=== PATIENT | male | born 1965 | race Caucasian/White ===

== ENCOUNTER → 2018-01-12 16:42 | Outpatient (CLI) | payer BC, SELFPAY ==
[2018-01-12 17:39] LABS: Absolute Lymphocyte Count 2.18 X10^3/ul (0.83-4.51); Absolute Neutrophil Count 4.1 X10^3/uL (2.0-7.7); Basophil# 0.02 X10^3/uL; Basophil% 0.3 % (0-1); Eosinophil# 0.08 X10^3/uL; Eosinophils% 1.2 % (0-5); Hematocrit 42.7 % (40-54); Hemoglobin 14.1 g/dl (13.0-16.5); Lymphocyte # 2.18 X10^3/ul (4.0); Lymphocyte % 31.7 % (19-41); Mean Corpuscular Hgb 28.8 pg (27.0-32.0); Mean Corpuscular Volume 87.1 fL (80-94); Mean Platelet Vol. 11.5 fl (6.2-12.0); Monocyte% 7.3 % (0-10); Neutrophil # 4.08 X10^3/uL (2.7-7.7); Neutrophil % 59.2 % (47-70); Platelet Count 109 K/mm3 (150-450); RBC Distribution Width CV 13.6 % (11.6-14.6); RBC Distribution Width SD 43.3 fl (35.1-43.9); White Blood Count 6.9 K/mm3 (4.4-11.0)
[2018-01-12 17:45] LABS: POSITIVE COUNT NO; POSITIVE DIFFERENTIAL NO; POSITIVE MORPHOLOGY NO
[2018-01-12 18:01] LABS: BUN 25 mg/dL (7-18); Creatinine, Serum 0.83 mg/dL (0.70-1.30); Glucose 162 mg/dL (74-106)
[2018-01-12 18:02] LABS: AST(SGOT) 31 U/L (15-37); Alanine Aminotransfer ALT/SGPT 43 U/L (16-61); Albumin, Serum 3.7 g/dL (3.2-5.0); Alkaline Phosphatase 110 U/L (45-117); Anion Gap 9 (5-15); BUN/Creat Ratio 30.3 RATIO (10-20); Calcium,Total 9.1 mg/dL (8.5-10.1); Chloride 104 mmol/L (98-107); EST Glomerular Filtration Rate 104 mL/min (>60); Est Glom Filt Rate - Afr Amer 126 mL/min (>60); Globulin 3.8 g/dL (2.2-4.2); Protein, Total 7.5 g/dL (6.4-8.2); Sodium Level 138 mmol/L (136-145); Thyroid Stim Hormone (TSH) 0.71 uIU/mL (0.358-3.74)
== END ==
PROVIDERS: Family Provider Family Medicine Geriatric Medicine; PCP Family Medicine Geriatric Medicine; Visit Provider Family Medicine Geriatric Medicine
DX: I10 Essential (primary) hypertension (principal); E11.9 Type 2 diabetes mellitus without complications; E23.6 Other disorders of pituitary gland
CPT/HCPCS: 36415; 80053; 84403; 84443; 85025

== ENCOUNTER → 2018-03-03 10:10 | Outpatient (CLI) | payer BC, SELFPAY ==
--- NOTE | 2018-03-03 12:28 | RAD_ITS ---
STUDY: X-RAY CHEST REASON FOR EXAM: Male, 52 years old. Short of breath x2 days. History of previous bronchitis. TECHNIQUE: Frontal and lateral views of the chest. COMPARISON: June 04, 2015. FINDINGS: There is no large region of alveolar opacification involving near completely the left lower lobe. There is obscuration of the left hemidiaphragm and blunting of left lateral left posterior costophrenic angles. There is no pneumothorax. Normal size heart. Normal mediastinum and lucy. Normal visualized pulmonary arteries. Normal visualized aortic arch and descending thoracic aorta. Normal visualized thoracic spine. Normal visualized ribs, clavicles, and shoulders. There is no demonstrated abnormality of the visualized soft tissue structures of the upper abdomen. RAD/Chest PA and Lateral IMPRESSION: Left lower lobe pneumonia with small to moderate-sized parapneumonic effusion. Electronically Signed: Ryan Larsen MD at 13:24 EDT , Service support ,
[2018-03-03 12:59] LABS: Anion Gap 9 (5-15); BUN 35 mg/dL (7-18); BUN/Creat Ratio 34.7 RATIO (10-20); Calcium,Total 9.3 mg/dL (8.5-10.1); Chloride 95 mmol/L (98-107); Creatinine, Serum 1.01 mg/dL (0.70-1.30); EST Glomerular Filtration Rate 83 mL/min (>60); Est Glom Filt Rate - Afr Amer 100 mL/min (>60); Glucose 387 mg/dL (74-106); Potassium 4.5 mmol/L (3.5-5.1); Sodium Level 132 mmol/L (136-145)
[2018-03-03 13:28] LABS: Absolute Lymphocyte Count 0.81 X10^3/ul (0.83-4.51); Absolute Neutrophil Count 7.5 X10^3/uL (2.0-7.7); Basophil# 0.01 X10^3/uL; Basophil% 0.1 % (0-1); Eosinophil# 0.05 X10^3/uL; Eosinophils% 0.6 % (0-5); Hematocrit 41.4 % (40-54); Hemoglobin 13.5 g/dl (13.0-16.5); Lymphocyte # 0.81 X10^3/ul (4.0); Lymphocyte % 9.4 % (19-41); Mean Corp Hgb Conc 32.6 g/gl (32-36); Mean Corpuscular Hgb 28.2 pg (27.0-32.0); Mean Corpuscular Volume 86.6 fL (80-94); Monocyte# 0.31 X10^3/uL; Monocyte% 3.6 % (0-10); Neutrophil # 7.46 X10^3/uL (2.7-7.7); Neutrophil % 86.2 % (47-70); Platelet Count 91 K/mm3 (150-450); RBC Distribution Width CV 13.2 % (11.6-14.6); Red Blood Count 4.78 M/mm3 (4.6-6.2); White Blood Count 8.7 K/mm3 (4.4-11.0)
[2018-03-03 13:29] LABS: Differential Indicated SCAN CRITERIA MET; POSITIVE COUNT NO; POSITIVE DIFFERENTIAL NO; POSITIVE MORPHOLOGY YES
[2018-03-03 14:57] LABS: Polychromasia 1+
== END ==
PROVIDERS: Family Provider Family Medicine Geriatric Medicine; PCP Family Medicine Geriatric Medicine; Visit Provider Family Medicine Geriatric Medicine
DX: R06.02 Shortness of breath (principal); R50.9 Fever, unspecified; E86.0 Dehydration
CPT/HCPCS: 36415; 71046; 80048; 85025; 87633

== ENCOUNTER → 2018-03-10 12:39 | Outpatient (CLI) | payer BC, SELFPAY ==
--- NOTE | 2018-03-10 12:54 | RAD_ITS ---
STUDY: X-RAY CHEST REASON FOR EXAM: Male, 52 years old. Chest pain. Diagnosed with pneumonia last week. Pain. TECHNIQUE: PA and lateral views of the chest. COMPARISON: March 03, 2018. FINDINGS: Lungs well-expanded. There is linear atelectasis in the left lung with blunting of the costophrenic angle and small pleural effusion. There is may represent residual pneumonia. Normal size heart. Normal mediastinum and lucy. Normal visualized pulmonary arteries. Normal visualized aortic arch and descending thoracic aorta. Normal visualized thoracic spine. Normal visualized ribs, clavicles, and shoulders. There is no demonstrated abnormality of the visualized soft tissue structures of the upper abdomen. RAD/Chest PA and Lateral IMPRESSION: Small pleural effusion and linear atelectasis at the left lung base. Question residual pneumonia. Electronically Signed: Reagan Arriola DO at 14:20 EDT Tel [phone], Service support ,
== END ==
PROVIDERS: Family Provider Family Medicine Geriatric Medicine; PCP Family Medicine Geriatric Medicine; Visit Provider Family Medicine Geriatric Medicine
DX: R07.9 Chest pain, unspecified (principal)
CPT/HCPCS: 71046

== ENCOUNTER → 2018-03-21 10:30 | Outpatient (CLI) | payer BC, SELFPAY ==
--- NOTE | 2018-03-21 10:33 | ECHOD_ITS ---
Reason For Study: SOB Procedure This was a 2D Doppler, Color Flow transthoracic echocardiogram. The exam was of fair technical quality due to body habitus. The study was technically difficult. Exam performed in department. Left Ventricle Normal LV size. Left ventricular systolic function is normal. The estimated ejection fraction is 70 %. No evidence for diastolic dysfunction. No regional wall motion abnormalities noted. Right Ventricle Normal RV size. Normal systolic function. Atria Normal left atrium. Normal right atrium. No doppler evidence for ASD. Mitral Valve There is no mitral annular calcification. Normal mitral valve. Trivial mitral valve insufficiency. Tricuspid Valve Normal tricuspid valve. Trivial tricuspid valve insufficiency. Unable to estimate RV systolic pressure/pulmonary artery pressure due to technically difficult study. Aortic Valve The aortic valve is not well visualized. Pulmonic Valve The pulmonic valve is not well visualized. Great Vessels Normal sized aortic root. Pericardium/Pleural No pericardial effusion. MMode/2D Measurements & Calculations LVIDd: 4.3 cm IVSd: 1.1 cm Ao root diam: 3.0 cm LVIDs: 3.0 cm LVPWd: 0.81 cm RVDd: 3.0 cm FS: 30.4 % LAV(MOD-bp): 37.3 ml EDV(MOD-sp4): 133.1 ml SV(MOD-sp4): 73.8 ml LAV(MOD-bp) Indexed: 16.6 ml/m2 ESV(MOD-sp4): 59.3 ml LAV(MOD-sp2): 35.1 ml EF(MOD-sp4): 55.5 % LAV(MOD-sp4): 35.4 ml LA A4 area: 15.8 cm2 RA A4 area: 10.7 cm2 Time Measurements MV dec time: 0.21 sec Doppler Measurements & Calculations MV E max lowell: 117.6 cm/sec Lat Peak E' Lowell: 17.1 cm/sec Med Peak E' Lowell: 11.6 cm/sec MV A max lowell: 100.9 cm/sec E/E' lat: 6.9 E/E' med: 10.1 MV E/A: 1.2 Ao V2 max: 219.1 cm/sec LV V1 max: 120.2 cm/sec PA V2 max: 206.4 cm/sec Ao max P.2 mmHg LV V1 max P.8 mmHg Ao V2 mean: 165.6 cm/sec LV V1 mean P.4 mmHg Ao mean P.2 mmHg LV V1 mean: 85.2 cm/sec Ao V2 VTI: 41.2 cm LV V1 VTI: 24.8 cm Interpretation Summary The study was technically difficult. Left ventricular systolic function is normal. The estimated ejection fraction is 70 %. Trivial mitral valve insufficiency. Trivial tricuspid valve insufficiency. Unable to estimate RV systolic pressure/pulmonary artery pressure due to technically difficult study. No evidence for diastolic dysfunction. Ordering Physician: Ravindra Durham Referring Physician: Ravindra Durham Chi Performed By: Barbara Pinto RDCS
== END ==
PROVIDERS: Family Provider Family Medicine Geriatric Medicine; PCP Family Medicine Geriatric Medicine; Visit Provider Family Medicine Geriatric Medicine
DX: R06.02 Shortness of breath (principal)
CPT/HCPCS: 93306

== ENCOUNTER → 2018-03-23 06:04 | Outpatient (CLI) | payer BC, SELFPAY ==
--- NOTE | 2018-03-23 09:02 | STRESSREP ---
Stress Test Report Date: 03/23/2018 Procedure: Pharmacologic stress nuclear imaging study Indications: Chest pain/shoulder pain; abnormal ECG Consent: Per the patient Procedure: The patient underwent pharmacologic (Regadenoson) evaluation with a peak heart rate of 102 beats per minute (60 predicted maximal heart rate) and a peak blood pressure of 119/82 mmHg. The baseline ECG demonstrated normal sinus rhythm. The peak pharmacologic ECG demonstrated no obvious ECG changes. There were no cardiac dysrhythmias pretest, during pharmacologic infusion, or recovery. Patient noted chronic chest/shoulder discomfort pretest, during infusion, and recovery. The examination was discontinued secondary to completion of protocol. Impression: 1. Pharmacologic (Regadenoson) evaluation 2. Peak pharmacologic ECG with no obvious ECG changes. 3. There were no cardiac dysrhythmias pretest, during pharmacologic infusion, or recovery 4. Nuclear images pending Myocardial perfusion imaging study: Technique: The patient was injected with 14.6 millicuries of technetium 99m Cardiolite and subsequently rest SPECT Cardiolite nuclear imaging was obtained in the horizontal long, vertical long, and short axis views. The patient underwent pharmacologic (Regadenoson) evaluation with a peak heart rate of 102 beats per minute (60 % percent predicted maximal heart rate) and a peak blood pressure of 119/82 mmHg. The patient was injected with 44.7 millicuries of technetium 99m Cardiolite and subsequently stress SPECT Cardiolite nuclear imaging was obtained in the horizontal long, vertical long, and short axis views. A gated Cardiolite study at peak stress was obtained. Interpretation: Rest and stress SPECT Cardiolite nuclear imaging status post realignment, normalization, and attenuation correction demonstrate a small area of subtle diminished myocardial perfusion/tracer uptake in the lateral apical segments without significant change between rest and stress. There is end systolic thickening and brightening. The gated Cardiolite study demonstrates myocardial thickening and inward wall motion. The reported LVEF is 65 %. Impression: 1. Rest and stress SPECT Cardiolite nuclear imaging demonstrate a small area of subtle diminished myocardial perfusion/tracer uptake in the lateral apical segments without significant change between rest and stress appearing compatible with the effects of soft tissue attenuation/artifact and/or physiologic apical thinning with no myocardial perfusion changes consider diagnostic for associated stress-induced myocardial ischemia or previous myocardial injury/infarction. 2. The gated Cardiolite study reports an LVEF of 65%. This note was generated with Dragon dictation software. It may contain incorrect words, spelling, and punctuation that were not noted in checking the note before signing.
[2018-03-24 11:26] LABS: Bedside Glucose 333 mg/dL (70-110)
== END ==
PROVIDERS: Family Provider Family Medicine Geriatric Medicine; PCP Family Medicine Geriatric Medicine; Visit Provider Family Medicine Geriatric Medicine
DX: R94.31 Abnormal electrocardiogram [ECG] [EKG] (principal)
CPT/HCPCS: 78452; 82962; 93017; A9500; A4216; J2785

== ENCOUNTER 2018-03-24 07:39 | Emergency (ER) | payer BC, SELFPAY ==
[2018-03-24] VITALS (13 sets, daily range): BP systolic 100–150; BP diastolic 54–76; PULSE 91–154; RESP 16–27; TEMP 36.3–37.2; O2SAT 96–100; BMI 38.0
--- NOTE | 2018-03-24 08:20 | EKG12_ITS ---
Test Reason : REPEAT Blood Pressure : / mmHG Vent. Rate : 131 BPM Atrial Rate : 138 BPM P-R Int : 000 ms QRS Dur : 094 ms QT Int : 308 ms P-R-T Axes : 000 023 220 degrees QTc Int : 454 ms Atrial fibrillation Low voltage QRS ST & T wave abnormality, consider inferolateral ischemia Abnormal ECG Confirmed by FIORDALIZA GARCIA, XAVIER ([id number]), supervising editor trailer MACIE LAURA ([id number]) on 03/28/2018 2:18:10 PM Referred By: Ravindra Durham Confirmed By:XAVIER MANCERA MD
--- NOTE | 2018-03-24 08:21 | RAD_ITS ---
STUDY: X-RAY CHEST REASON FOR EXAM: Male, 52 years old. Chest pain. TECHNIQUE: Single AP portable view of the chest. COMPARISON: Comparison is made with prior study dated March 10, 2018. FINDINGS: EKG electrodes are seen. Small to moderate left pleural effusion with underlying infiltration and/or atelectasis. This has progressed as compared to prior study. The right lung is clear. Normal size heart. Normal mediastinum and lucy. Normal visualized pulmonary arteries. Normal visualized aortic arch and descending thoracic aorta. Normal visualized thoracic spine. Normal visualized ribs, clavicles, and shoulders. There is no demonstrated abnormality of the visualized soft tissue structures of the upper abdomen. RAD/Chest 1 View (Portable) IMPRESSION: Increased left pleural effusion with underlying infiltration and/or atelectasis as compared to prior study. The right lung is clear. Electronically Signed: Travis Borges MD at 9:07 EDT Tel [phone], Service support ,
--- NOTE | 2018-03-24 08:28 | ED.VISSUMM ---
- ER Visit Summary Date of Service: 03/24/18 Chief Complaint: Chest pain History of Present Illness: The patient is a [address] Durham. He reports that he has had lower left chest pain for approximately the past week. States that is intermittent and lasts minutes at a time. It is brought on by exertion and relieved by rest. He describes the pain as a panic attack. It is 5 out of 10 at worst and he is 1 out of 10 currently. He reports that it is associated with severe shortness of breath. He does have nausea and diaphoresis with this at times. States that he is also lightheaded during these episodes. He also states that he has left shoulder pain that has been constant for the past week. Patient reports that this morning he was laying down and then stood up and walked up 2 flights of stairs. He sat down on the toilet and the next thing he knew his was cleaning him up. He denies any injuries from the fall. Does report that prior to this he was short of breath. He denies any chest pain or palpitations. Patient reports that he had pneumonia 2 weeks ago and was on an unknown antibiotic which he took twice daily for 1 week. He states his cough is greatly improved and is now nonproductive. He denies any fever or chills. Patient had an echocardiogram 3 days ago and a stress test yesterday. He has a history of high blood pressure, high cholesterol, type 2 diabetes as cardiac risk factors. He also has a history of obstructive sleep apnea. No family history of coronary artery disease. No family history of DVTs. No recent travel or personal history of DVT. No ankle swelling or calf pain. Physical Examination: Vitals: 9.0, 150/67, 99, 20, 97% on room air which is not hypoxic. General: Well-nourished and well-developed. Head: Normocephalic atraumatic. Neck: Supple, no lymphadenopathy. No JVD. Nontender. Cardiovascular: Regular rate and rhythm. No murmurs. Respiratory: No respiratory distress. Clear to auscultation bilaterally. Abdominal: Soft, nontender, nondistended, normal bowel sounds. No guarding, rebound, or peritoneal signs. Back: Nontender. Extremities: Nontender, no edema. Skin: Normal color, no rash. Neurologic: Alert and oriented ?3. Cranial nerves II through XII are intact. Normal strength and sensation. Psych: Normal affect. Test Results: EKG is sinus tach at [address] segments laterally. There is no old EKG for comparison. CBC is remarkable for hemoglobin of 4.3 and hematocrit of 14.1. His hemoglobin was 13.5 on March 03. Chem-7 is more for creatinine is 0.62, glucose 340, calcium 7.7. INR is 1.1. PTT is 25.8. Lactic acid is 1.0. Initial troponin is less than 0.015. D-dimer is 1.83. Chest x-ray shows a left pleural effusion. CTA of the chest shows small to moderate size left pleural effusion with areas of loculation. Left lower lobe infiltrate and/or atelectasis. Several nonocclusive intraluminal filling defects are seen in the branches a left lower lobe pulmonary artery. Echocardiogram shows normal systolic function. No evidence of diastolic dysfunction. Ejection fraction is 70%. Trivial tricuspid and mitral valve insufficiency. Stress test from yesterday 60% of the max predicted heart rate was achieved with Regadenoson. Ejection fraction was 65%. Small area of subtle decreased uptake in the lateral apical segments that is unchanged between rest and stress. Emergency Department Course and Treatment: Patient was given aspirin. He was given a liter bolus of normal saline. Patient was typed and crossed and given 2 units of packed red blood cells. During his stay in the emergency department he went into atrial fibrillation with RVR. His rate is in the 130s-150s and his systolic blood pressure is in the 1 teens. He was given amiodarone IV. He was given Zosyn IV. He was given Protonix IV. Treatment Plan: The patient was discussed with Dr. Bahena. Given the empyema and anemia is felt that he would be better served at a tertiary care center where he could see a cardiothoracic surgeon and gastroenterology. Patient decided to go to [facility]. He was discussed with Dr. Jones. At this time he will not be anticoagulated due to the anemia and the peripheral nature of these PEs. He will have lower extremity Dopplers and if these are positive he will have an IVC filter placed. Disposition: Transferred in critical condition. Impression: 1. Anemia. 2. Syncope. 3. Left pleural effusion/empyema. 4. Atrial fibrillation with RVR. 5. PE. 6. Critical care time 30 minutes. This note was generated with [employer] dictation software. It may contain incorrect words, spelling, and punctuation that were not noted in review of the chart prior to signing ED Disposition - Plan for ED Patient: Chief Complaint: Chest Pain Referrals: Ravindra Durham Chi, MD [Primary Care Provider] -
[2018-03-24] MEDS: 0.9% Normal Saline 1,000 ML 1000 ML IV (08:31)
[2018-03-24] MEDS: Aspirin 81 MG TAB.CHEW 324 MG PO (08:33)
[2018-03-24 08:41] LABS: Hematocrit 14.1 % (40-54); Mean Corp Hgb Conc 30.5 g/gl (32-36); Mean Corpuscular Hgb 29.5 pg (27.0-32.0); Mean Corpuscular Volume 96.6 fL (80-94); Mean Platelet Vol. 8.9 fl (6.2-12.0); Platelet Count 191 K/mm3 (150-450); RBC Distribution Width CV 18.2 % (11.6-14.6); RBC Distribution Width SD 48.7 fl (35.1-43.9); Red Blood Count 1.46 M/mm3 (4.6-6.2); White Blood Count 7.9 K/mm3 (4.4-11.0)
[2018-03-24 08:42] LABS: Hemoglobin 4.3 g/dl (13.0-16.5)
[2018-03-24 08:43] LABS: Differential Indicated MANUAL DIFF; POSITIVE COUNT YES; POSITIVE DIFFERENTIAL NO; POSITIVE MORPHOLOGY YES
[2018-03-24 08:49] LABS: Anion Gap 8 (5-15); BUN 14 mg/dL (7-18); BUN/Creat Ratio 22.6 RATIO (10-20); Calcium,Total 7.7 mg/dL (8.5-10.1); Chloride 103 mmol/L (98-107); Creatinine, Serum 0.62 mg/dL (0.70-1.30); EST Glomerular Filtration Rate 146 mL/min (>60); Est Glom Filt Rate - Afr Amer 176 mL/min (>60); Estimated Creatinine Clearance 136.37 ml/min; Glucose 340 mg/dL (74-106); Potassium 3.9 mmol/L (3.5-5.1); Sodium Level 137 mmol/L (136-145)
[2018-03-24 08:52] LABS: D-Dimer Quantitative (DVT/PE) 1.83 FEU/ug/m (0.27-0.49)
--- NOTE | 2018-03-24 08:54 | CT_ITS ---
STUDY: CTA CHEST REASON FOR EXAM: Male, 52 years old. Shortness of breath. RADIATION DOSAGE (If Supplied By Facility): CTDIvol = ( 16.72 ) mGy, DLP = ( 701.43 ) mGycm TECHNIQUE: The examination was performed with the intravenous administration of 100 ml of Isovue 370 contrast material. Post-processing of the angiographic images was performed, with multiplanar reformation and 3D reconstruction. Individualized dose optimization techniques were used for this CT. COMPARISON: Comparison is made with prior chest radiograph done earlier today. FINDINGS: Several nonocclusive intraluminal filling defects are seen in branches of the left lower lobe pulmonary artery. Normal thoracic aorta and visualized great vessels. There is no demonstrated aortic dissection. Normal heart and pericardium. Normal mediastinum. Normal hilar regions. Normal visualized trachea and bronchi. The lungs are well expanded. Small to moderate left pleural effusion with findings suggestive of a partial loculation along its lateral aspect. Infiltration and/or atelectasis in the left lower lobe. The right lung is clear. Normal chest wall structures. Normal osseous structures. Normal visualized upper abdomen. CT/CTA Chest W/WO Contrast IMPRESSION: Small to moderate sized left pleural effusion with areas of loculation.. Left lower lobe infiltrate and/or atelectasis. Intraluminal filling defects in branches of the left lower lobe pulmonary artery. Electronically Signed: Travis Borges MD at 9:57 EDT Tel [phone], Service support ,
[2018-03-24 09:15] LABS: Lymphocyte 17 % (19-41); Metamyelocyte 3 % (0-1); Monocyte 5 % (0-10); Neutrophil-Segmented 75 % (47-70); Total Cells Counted 100 (MANUAL DIFF)
[2018-03-24 09:16] LABS: Absolute Neutrophil Count 5.9 X10^3/uL (2.0-7.7); Platelet Estimate ADEQUATE (ADEQ); Red Cell Morphology NORM C+C NORMAL (NORM C&C)
[2018-03-24 09:17] LABS: Absolute Lymphocyte Count 1.34 X10^3/ul (0.83-4.51)
[2018-03-24 09:18] LABS: International Normalized Ratio 1.1; Prothrombin Time (Protime)PT. 14.3 SECONDS (11.7-14.9)
[2018-03-24 09:19] LABS: Partial Thromboplast Time 25.8 Seconds (24.1-36.2)
--- NOTE | 2018-03-24 09:51 | EKG12_ITS ---
Test Reason : CP Blood Pressure : / mmHG Vent. Rate : 105 BPM Atrial Rate : 105 BPM P-R Int : 160 ms QRS Dur : 094 ms QT Int : 346 ms P-R-T Axes : 058 020 099 degrees QTc Int : 457 ms Sinus tachycardia Nonspecific T wave abnormality Abnormal ECG Confirmed by FIORDALIZA GARCIA, XAVIER ([id number]), photography editor MACIE LAURA ([id number]) on 03/28/2018 2:18:26 PM Referred By: Ravindra Durham Confirmed By:XAVIER MANCERA MD
--- NOTE | 2018-03-24 10:03 | ED.RN ---
MD AWARE OF VS FROM PRIOR TO BLOOD AND INITIATION.
--- NOTE | 2018-03-24 10:33 | ED.RN ---
MD AWARE OF PT VS AND CONCERNS. CONTINUE WITH BLOOD TRANSFUSION.
--- NOTE | 2018-03-24 11:32 | ED.RN ---
REPORT CALLED TO INEZ ROJAS AT [facility].
[2018-03-27 11:59] LABS: Pathologist Review Reviewed
== END 2018-03-24 11:37 | disposition short-term general hospital (02) ==
PROVIDERS: Emergency Provider Emergency Medicine; Family Provider Family Medicine Geriatric Medicine; PCP Family Medicine Geriatric Medicine
DX: I26.99 Other pulmonary embolism without acute cor pulmonale (principal); R55 Syncope and collapse; D64.9 Anemia, unspecified; I48.91 Unspecified atrial fibrillation; J43.9 Emphysema, unspecified; I10 Essential (primary) hypertension; E78.00 Pure hypercholesterolemia, unspecified; E11.9 Type 2 diabetes mellitus without complications; G47.33 Obstructive sleep apnea (adult) (pediatric); Z79.84 Long term (current) use of oral hypoglycemic drugs; Z79.899 Other long term (current) drug therapy
CPT/HCPCS: 36430; 71045; 71275; 80048; 83605; 84484; 85025; 85379; 85610; 85730; 86850; 86900; 86920; 86922; 87040; 93005; 96361; 96365; 96367; 99285; J7030; J7040; P9016; Q9967; A4216; J3490

== ENCOUNTER 2018-04-09 12:12 | Inpatient (IN) | payer BC, SELFPAY ==
[2018-04-09] VITALS (10 sets, daily range): BP systolic 97–156; BP diastolic 60–116; PULSE 78–113; RESP 16–24; TEMP 36.6–37; O2SAT 95–99; BMI 36.9; BMI 36.2; BMI 36.3
--- NOTE | 2018-04-09 12:20 | RAD_ITS ---
STUDY: X-RAY CHEST REASON FOR EXAM: Male, 52 years old. Shortness of breath. TECHNIQUE: Single AP portable upright view of the chest. COMPARISON: Audible AP upright chest x-ray and CTA chest/thorax March 24, 2018. FINDINGS: There has been nearly complete clearing of the left base airspace disease and pleural effusion, with very minor residual curvilinear subsegmental atelectasis and lateral pleural thickening. No new infiltrate. There is no demonstrated pleural abnormality. Normal size heart. Normal mediastinum and lucy. Normal visualized pulmonary arteries. Normal visualized aortic arch and descending thoracic aorta. There are stable multilevel degenerative changes of the visualized thoracic spine. Normal visualized ribs, clavicles, and shoulders. There is no demonstrated abnormality of the visualized soft tissue structures of the upper abdomen. RAD/Chest 1 View (Portable) IMPRESSION: Nearly complete interval clearing of left base airspace disease and pleural effusion, as noted. No acute cardiopulmonary disease. Electronically Signed: Magen Clement MD at 12:49 EDT , Service support ,
--- NOTE | 2018-04-09 12:20 | EKG12_ITS ---
Test Reason : DIZZINESS Blood Pressure : / mmHG Vent. Rate : 096 BPM Atrial Rate : 096 BPM P-R Int : 130 ms QRS Dur : 080 ms QT Int : 352 ms P-R-T Axes : 053 030 030 degrees QTc Int : 444 ms Normal sinus rhythm Nonspecific T wave abnormality Confirmed by FIORDALIZA GARCIA, XAVIER ([id number]), science editor MACIE LAURA ([id number]) on 04/19/2018 6:49:23 PM Referred By: FOSTER Confirmed By:XAVIER MANCERA MD
[2018-04-09 12:26] LABS: Bedside Glucose 401 mg/dL (70-110)
[2018-04-09 13:04] LABS: Basophil# 0.02 X10^3/uL; Basophil% 0.3 % (0-1); Eosinophil# 0.07 X10^3/uL; Eosinophils% 1.1 % (0-5)
[2018-04-09 13:09] LABS: Differential Indicated SCAN CRITERIA MET; Hematocrit 36.7 % (40-54); Hemoglobin 11.2 g/dl (13.0-16.5); Lymphocyte % 21.8 % (19-41); Mean Corp Hgb Conc 30.5 g/gl (32-36); Mean Corpuscular Volume 85.2 fL (80-94); Mean Platelet Vol. 10.4 fl (6.2-12.0); Neutrophil % 68.3 % (47-70); POSITIVE COUNT YES; POSITIVE DIFFERENTIAL NO; POSITIVE MORPHOLOGY NO; Platelet Count 165 K/mm3 (150-450); RBC Distribution Width CV 15.5 % (11.6-14.6); RBC Distribution Width SD 48.8 fl (35.1-43.9); Red Blood Count 4.31 M/mm3 (4.6-6.2); White Blood Count 6.6 K/mm3 (4.4-11.0)
[2018-04-09 13:10] LABS: Absolute Lymphocyte Count 1.44 X10^3/ul (0.83-4.51); Absolute Neutrophil Count 4.5 X10^3/uL (2.0-7.7); Lymphocyte # 1.44 X10^3/ul (4.0); Monocyte# 0.53 X10^3/uL; Neutrophil # 4.51 X10^3/uL (2.7-7.7)
[2018-04-09] MEDS: 0.9% Normal Saline 1,000 ML 999 ML IV (13:25)
[2018-04-09 13:34] LABS: Anion Gap 14 (5-15); BUN 15 mg/dL (7-18); Calcium,Total 9.3 mg/dL (8.5-10.1); Chloride 100 mmol/L (98-107); Creatinine, Serum 1.25 mg/dL (0.70-1.30); EST Glomerular Filtration Rate 65 mL/min (>60); Est Glom Filt Rate - Afr Amer 78 mL/min (>60); Estimated Creatinine Clearance 67.64 ml/min; Glucose 414 mg/dL (74-106); Potassium 4.6 mmol/L (3.5-5.1); Sodium Level 131 mmol/L (136-145)
[2018-04-09 13:35] LABS: Differential Comment SCANNED
[2018-04-09 13:54] LABS: Lactic Acid 4.6 mmol/L (0.4-2.0)
[2018-04-09 14:38] LABS: International Normalized Ratio 1.1; Partial Thromboplast Time 25.4 Seconds (24.1-36.2); Prothrombin Time (Protime)PT. 13.7 SECONDS (11.7-14.9)
--- NOTE | 2018-04-09 14:51 | ED.VISSUMM ---
- ER Visit Summary Date of Service: 04/09/18 Chief Complaint: Syncope History of Present Illness: The patient is a [address] Durham. He has a complicated recent medical history. He was admitted [facility] on March 24. He was discharged 5 days ago. While there he received 4 units of packed red blood cells. He had colonoscopy and endoscopy and was not informed of the source of blood loss. He had a chest tube in the left lung for an empyema. He reports that he is supposed follow-up to have stitches removed from this in a few days. He is still on an antibiotic which he takes twice daily. He does not know the name of this. His last dose was to be today. He also had a PE. Due to the severe anemia and no source of blood loss he had an IVC filter placed rather than being anticoagulated. Patient has gone out very little since then. He reports that he had his biggest venture out today. States that he went to [employer] As he was walking and he reports that he had tunnel vision. He got progressively more lightheaded, diaphoretic, and short of breath. He did not have chest pain during this. When he got to the front of the store he had what he reports was near syncope. However, bystanders report that he was in and out of consciousness. He reports that he did not fall. However, he was incontinent of stool. Patient denies any fever or chills. He reports that he has very little cough and it is productive of clear sputum. He reports that he was short of breath during this episode today, but has not been short of breath otherwise. He reports that for the past 3 or 4 days he has been having diarrhea 2-3 times per day. No abdominal pain. No nausea or vomiting. No other complaints. Physical Examination: Vitals: Stable. Afebrile. General: Well-nourished and well-developed. Head: Normocephalic atraumatic. Neck: Supple, no lymphadenopathy. No JVD. Nontender. Cardiovascular: Regular rate and rhythm. No murmurs. Respiratory: No respiratory distress. Clear to auscultation bilaterally. Abdominal: Soft, nontender, nondistended, normal bowel sounds. No guarding, rebound, or peritoneal signs. Back: Nontender. Extremities: Nontender, no edema. Skin: Normal color, no rash. Neurologic: Alert and oriented ?3. Cranial nerves II through XII are intact. Normal strength and sensation. Psych: Normal affect. Test Results: EKG is sinus at 96 with no acute changes. There is no significant change from last month. Initial troponin is negative. Lactic acid is 4.6. Chem-7 is marked for sodium 131, CO2 of 17, glucose of 414. CBC is marked for an H&H 11.2 and 36.7. Chest x-ray shows nearly complete clearing of the left lung base airspace disease and pleural effusion. No acute disease. Emergency Department Course and Treatment: Patient was given a liter bolus of normal saline. His systolic blood pressure increased from the high 90s to the 130s. He is resting comfortably without complaint. Abdominal Treatment Plan: Given the recent comp gated medical history and the syncope today I feel that the patient should be admitted to the hospital for evaluation and observation. He was discussed with Dr. Henderson. He will be admitted to the PCU. Disposition: Admitted in improved condition. Impression: 1. Syncope. 2. Lactic acidosis. 3. Hyperglycemia. 4. History of [id number] diabetes mellitus. This note was generated with [employer] dictation software. It may contain incorrect words, spelling, and punctuation that were not noted in review of the chart prior to signing ED Disposition - Plan for ED Patient: Chief Complaint: Syncope Referrals: Ravindra Durham Chi, MD [Primary Care Provider] -
--- NOTE | 2018-04-09 14:56 | ED.DCSUM_ITS ---
- ER Visit Summary Date of Service: 04/09/18 Chief Complaint: Syncope History of Present Illness: The patient is a [address] Durham. He has a complicated recent medical history. He was admitted [facility] on March 24. He was discharged 5 days ago. While there he received 4 units of packed red blood cells. He had colonoscopy and endoscopy and was not informed of the source of blood loss. He had a chest tube in the left lung for an empyema. He reports that he is supposed follow-up to have stitches removed from this in a few days. He is still on an antibiotic which he takes twice daily. He does not know the name of this. His last dose was to be today. He also had a PE. Due to the severe anemia and no source of blood loss he had an IVC filter placed rather than being anticoagulated. Patient has gone out very little since then. He reports that he had his biggest venture out today. States that he went to [employer] As he was walking and he reports that he had tunnel vision. He got progressively more lightheaded , diaphoretic, and short of breath. He did not have chest pain during this. When he got to the front of the store he had what he reports was near syncope. However, bystanders report that he was in and out of consciousness. He reports that he did not fall. However, he was incontinent of stool. Patient denies any fever or chills. He reports that he has very little cough and it is productive of clear sputum. He reports that he was short of breath during this episode today, but has not been short of breath otherwise. He reports that for the past 3 or 4 days he has been having diarrhea 2-3 times per day. No abdominal pain. No nausea or vomiting. No other complaints. Physical Examination: Vitals: Stable. Afebrile. General: Well-nourished and well-developed. Head: Normocephalic atraumatic. Neck: Supple, no lymphadenopathy. No JVD. Nontender. Cardiovascular: Regular rate and rhythm. No murmurs. Respiratory: No respiratory distress. Clear to auscultation bilaterally. Abdominal: Soft, nontender, nondistended, normal bowel sounds. No guarding, rebound, or peritoneal signs. Back: Nontender. Extremities: Nontender, no edema. Skin: Normal color, no rash. Neurologic: Alert and oriented ?3. Cranial nerves II through XII are intact. Normal strength and sensation. Psych: Normal affect. Test Results: EKG is sinus at 96 with no acute changes. There is no significant change from last month. Initial troponin is negative. Lactic acid is 4.6. Chem-7 is marked for sodium 131, CO2 of 17, glucose of 414. CBC is marked for an H&H 11.2 and 36.7. Chest x-ray shows nearly complete clearing of the left lung base airspace disease and pleural effusion. No acute disease. Emergency Department Course and Treatment: Patient was given a liter bolus of normal saline. His systolic blood pressure increased from the high 90s to the 130s. He is resting comfortably without complaint. Abdominal Treatment Plan: Given the recent comp gated medical history and the syncope today I feel that the patient should be admitted to the hospital for evaluation and observation. He was discussed with Dr. Henderson. He will be admitted to the PCU. Disposition: Admitted in improved condition. Impression: 1. Syncope. 2. Lactic acidosis. 3. Hyperglycemia. 4. History of hrp-culfqni-slnyghkxo diabetes mellitus. This note was generated with [employer] dictation software. It may contain incorrect words, spelling, and punctuation that were not noted in review of the chart prior to signing ED Disposition - Plan for ED Patient: Chief Complaint: Syncope Referrals: Ravindra Durham Chi, MD [Primary Care Provider] -
--- NOTE | 2018-04-09 15:08 | DT_ITS ---
This patient was seen during an EMR downtime April 10, 2018 - April 17, 2018. This patient may have a combination of paper and electronic documentation or all paper documentation. All documentation is viewable within the e-chart portion of [facility] for each patient visit.
--- NOTE | 2018-04-09 15:10 | PCM.HP.STD ---
<Pedro Singh - Last Filed: 04/09/18 15:10> Problem List (1) Syncope Status: Acute (2) Lactic acidosis Status: Acute (3) Diabetes Status: Chronic Qualifiers: Diabetes mellitus type: type 2 (4) Pulmonary embolism Status: Chronic (5) HTN (hypertension) Status: Chronic (6) Gastric ulcer Status: Acute (7) Testicular cancer Status: Chronic History of Present Illness Date of Admission: 04/09/18 Chief Complaint: syncope The patient is a 52 year old M with a medical hx of htn, dmt2, PE s/p IVC filter 2/2 GI bleeding suspected 2/2 gastric ulcers, hx Testicular CA s/p BL orchiectomy who presented to the ER with a syncopal episode today. He was discharged from [facility] 5 days ago where he was admitted for anemia 2/2 GI bleeding, PEs, and pleural effusions s/p chest tube placement 2/2 pna/empyema. While there he had upper and lower endoscopies with ulcers and polyps respectively, chest tube for empyema 2/2 pna, IV abx currently finishing PO, and IVC filter placement as he had PE but could not be anticoagulated 2/2 bleeding ulcers and anemia - did receive 4 units PRBC. Chest tube was DCd, he was converted to PO abx and discharged home. He has been weak since admission. Today he was at [place] with his ambulating with a cart and became dizzy, LH, right sided blurred vision, tunnel vision and felt that he passed out while hanging onto the cart while he was ambulating. He does not think he fell to the floor, he was able to hang onto the cart and not fall. He became very pale and lost control of his bowels. He was brought to the ED by squad. He has residual right sided blurry vision. He denies headache, numbness/tingling/diplopia/focal weakness/slurred speech/ataxia. He denies hx of seizures. [] Past Medical History Past Medical History (Chronic Problems): Chronic Problems Diabetes (Chronic) Pulmonary embolism (Chronic) HTN (hypertension) (Chronic) Testicular cancer (Chronic) Allergies No Known Allergies Allergy (Verified 04/09/18 12:18) Home Medications: Ambulatory Orders Medication Instructions Recorded Empagliflozin [Jardiance] 25 mg PO DAILY 03/24/18 Insulin Degludec/Liraglutide 50 units SQ DAILY 03/24/18 [Xultophy 100 Unit-3.6MG/ml Pen] Losartan Potassium [Cozaar] 1 tab PO DAILY 03/24/18 Metformin HCl [Glucophage] 1 tab PO BID 03/24/18 Rosuvastatin Calcium [Rosuvastatin 40 mg PO DAILY 03/24/18 Calcium] Surgical History: - - IVC filter, chest tube Psychiatric History: No pertinent psych hx Lives: Spouse/ Significant Other Smoking Status: Former smoker Tobacco Use: Chew Alcohol: None Drugs: None - *Family History Maternal History Items: No pertinent history Paternal History Items: No pertinent history Review of Systems Constitutional: Reports: Weakness. Denies: Chills, Fever, Weight Change Eyes: Reports: Blurred vision, Vision Change HEENT: Reports: Visual Changes. Denies: Head Aches, Sinus Congestion, Sinus Drainage Cardiovascular: Denies: Chest Pain, Palpitations Respiratory: Denies: Cough, Shortness of breath at rest, Sputum production Gastrointestinal: Denies: Abdominal Pain, Nausea, Vomiting Genitourinary: Denies: Dysuria Musculoskeletal: Denies: Joint Pain, Joint Tenderness Skin: Denies: Rash, Wounds Neurological: Reports: Blurred vision, - - syncope. Denies: Focal weakness, Headaches, Numbness, Tingling Psychiatric: Denies: Anxiety, Depression, Homicidal Ideations, Suicidal Ideations Hematologic/ Lymphatic: Denies: Easy Bruising, Easy Bleeding VTE Information - Inpt Only VTE Present on Admission: No VTE Mechan Device Prophylaxis: SCD's VTE Pharm Prophylaxis ordered?: No Reason prophylaxis not ordered:: Medical Contraindication Patient Problems: Active and Suspected Problems Syncope (Acute) Lactic acidosis (Acute) Gastric ulcer (Acute) - Physical Exam General: Alert, Oriented x3, Cooperative HEENT: Atraumatic, PERRLA, EOMI, Normocephalic, - Oral: - - poor dentition Neck: Supple, No JVD, Negative Carotid Bruits Lungs: Clear to auscultation, Normal air movement Cardiovascular: Regular rate, No murmurs Abdomen: Bowel Sounds Present, Soft, Non Tender Extremities: No edema, Capillary Refill Less than 3 Seconds Skin: No rashes, No breakdown Musculoskeletal: No Tenderness to Palpation of Joints or Extremities Neurological: Cranial nerves II-XII grossly intact Psych/Mental Status: Normal Affect, Appropriate, Alert and oriented to time, place, person, mood and affect Vital Signs Temp Pulse Resp BP Pulse Ox 97.8 F 82 18 134/70 H 98 04/09/18 12:13 04/09/18 14:46 04/09/18 14:46 04/09/18 14:46 04/09/18 14:46 Oxygen Delivery Method Room Air Weight: 110.2 kg Body Mass Index (BMI) 36.9 Laboratory Tests Past 24 Hrs 04/09/18 04/09/18 04/09/18 12:00 12:00 12:45 WBC 6.6 RBC 4.31 L Hgb 11.2 L Hct 36.7 L MCV 85.2 MCH 26.0 L MCHC 30.5 L RDW 15.5 H RDW Differential 48.8 H Plt Count 165 MPV 10.4 Immature Gran % (Auto) 0.500 Neut % (Auto) 68.3 Lymph % (Auto) 21.8 [place] % (Auto) 8.0 Eos % (Auto) 1.1 Baso % (Auto) 0.3 Absolute Neuts (auto) 4.5 Absolute Lymphs (auto) 1.44 Total Counted Not Reportable Differential Comment SCANNED PT Cancelled INR Cancelled APTT Cancelled Sodium Potassium Chloride Carbon Dioxide Anion Gap BUN Creatinine Estim Creat Clear Calc Est GFR (MDRD) Af Amer Est GFR (MDRD) Non-Af BUN/Creatinine Ratio Glucose Lactic Acid Calcium Troponin I Blood Type B POSITIVE Antibody Screen NEGATIVE 04/09/18 04/09/18 04/09/18 12:45 13:10 14:15 WBC RBC Hgb Hct MCV MCH MCHC RDW RDW Differential Plt Count MPV Immature Gran % (Auto) Neut % (Auto) Lymph % (Auto) [place] % (Auto) Eos % (Auto) Baso % (Auto) Absolute Neuts (auto) Absolute Lymphs (auto) Total Counted Differential Comment PT 13.7 INR 1.1 APTT 25.4 Sodium 131 L Potassium 4.6 Chloride 100 Carbon Dioxide 17.0 L Anion Gap 14 BUN 15 Creatinine 1.25 Estim Creat Clear Calc 67.64 Est GFR (MDRD) Af Amer 78 Est GFR (MDRD) Non-Af 65 BUN/Creatinine Ratio 12.0 Glucose 414 H Lactic Acid 4.6 H* Calcium 9.3 Troponin I < 0.015 Blood Type Antibody Screen POC Glucose 04/09/18 12:18 POC Glucose 401 H Assessment/Plan All Active Problems Syncope (Acute) Lactic acidosis (Acute) Gastric ulcer (Acute) 1. Syncopal episode - while ambulating, LOC without fall to floor or head trauma, with residual blurred vision right eye, loss of bowel control. Recent hospital stay and discharge with PE/GI bleed/empyema 2/2 pna/ ICU stay / blood transfusions. Will obtain CT brain, consult neurology, obtain EEG, check orthos, hydrate with IV fluids. Consider MRI must find out if this is compatible with IVC filter. Obtain records from [facility]. Trop neg. -negative stress test <1 month ago -echo <1 month ago with EF 70%, no diastolic dysfxn. -denies hx seizures. 2. Lactic acidosis unclear etiology - hydrate with IV fluids. Obtain UA. 3. DMt2 with hyperglycemia - pt is not sure what he is now on after last hospital stay, obtain accurate home meds/dc med rec. Add SSI. 4. Hyponatremia - suspect pseudo 2/2 hyperglycemia 5. PEs - s/p IVC filter, will need to determine if this is compatible with MRI. No OAC 2/2 blood loss anemia GI bleed 6. Recent pna/empyema/chest tube - no respiratory complaints. Lungs clear. He has last dose of abx tonight. 7. Recent Blood loss anemia s/p 4 units PRBC presumed GI bleed 2/2 ulcers - PPI. Avoid thinners. Trend Hgb. No acute bleeds, no recent BRBPR or black stools. 8. Deconditioned from hospitalization - PTOT 9. HTN - home meds 10. HLD - statin DVT ppx: SCDs only. DC planning: PTOT This patient was seen by Pedro Singh PA-C under the supervision of Doctor Miki. <Emily Livingston - Last Filed: 04/09/18 16:23> History of Present Illness The patient is a 52 year old M [] Past Medical History Allergies No Known Allergies Allergy (Verified 04/09/18 12:18) - Physical Exam Vital Signs Temp Pulse Resp BP Pulse Ox 97.8 F 82 18 134/70 H 98 04/09/18 12:13 04/09/18 14:46 04/09/18 14:46 04/09/18 14:46 04/09/18 14:46 Weight: 108.2 kg Body Mass Index (BMI) 36.2 Assessment/Plan Patient was seen and examined with physician care management assistant Pedro Singh. I agree with his above history, physical exam and assessment and plan as documented in his note. Brief, this is a 52-year-old male who started having cough with chest pain as well as shortness of breath starting from February, when he saw his primary care doctor. He was treated for pneumonia. Patient subsequently reports about to the primary care doctor, had workup for shortness of breath with negative 2D echo and stress test. He reported to the ED on 03/24/2018 with progressive shortness of breath and was found to be severely anemic with hemoglobin of about 4, he was found also in A. fib with RVR, pulmonary embolism and with significant left-sided pleural effusion. Patient was transferred to [facility] and managed with 4 units of packed RBC, he had an IVC placed, he had an EGD and colonoscopy which showed some gastric ulcers and also polyps. Discharge 4 days ago from [facility] when he decides to go to [place] to get some streeter and as he was walking he felt like he was having atenolol vision, felt slightly dizzy, and lost consciousness several times with associated loss of bowels. No seizures was seen. His was with him at the moment. Vitals in the ED were negative, labs were unremarkable. Physical exam: General: Patient is alert oriented ?3, not pale, no jaundice, well hydrated, obese CVS: Heart sounds 1 and 2 heard, tachycardic, no murmurs were heard Respiratory: Clinically clear to auscultation Abdomen: Bowel sounds were present and normal, no areas of tenderness, no palpable organs [employer]: Patient was alert oriented ?3, He 5/5 in all extremities, normal tone, reflexes were intact, cranial nerve II through XII intact Psych: Appropriate affect A/P: 1. Syncope versus seizure 2. Metabolic acidosis secondary to lactic acidosis 3. Lactic acidosis, unclear etiology 4. Anemia secondary to recent GI bleed 5. History of PE status post IVC 6. Hypertension 7. Type II DM Plan: Immediate retrieval of records from [facility] IV hydration, orthostatic vitals Stat medication reconciliation form recent discharge Neurology consult MRI of the brain if IVC filter is compatible - to bring IVC filter card. EEG Repeat blood work in a.m. FOBT Insulin sliding scale with Accu-Cheks Code Visit Inpatient E&M: 46458 Init Hosp L3
--- NOTE | 2018-04-09 15:20 | HP.PCM_ITS ---
<Pedro Singh - Last Filed: 04/09/18 15:10> Problem List (1) Syncope Status: Acute (2) Lactic acidosis Status: Acute (3) Diabetes Status: Chronic Qualifiers: Diabetes mellitus type: type 2 (4) Pulmonary embolism Status: Chronic (5) HTN (hypertension) Status: Chronic (6) Gastric ulcer Status: Acute (7) Testicular cancer Status: Chronic History of Present Illness Date of Admission: 04/09/18 Chief Complaint: syncope The patient is a 52 year old M with a medical hx of htn, dmt2, PE s/p IVC filter 2/2 GI bleeding suspected 2/2 gastric ulcers, hx Testicular CA s/p BL orchiectomy who presented to the ER with a syncopal episode today. He was discharged from [facility] 5 days ago where he was admitted for anemia 2/2 GI bleeding, PEs, and pleural effusions s/p chest tube placement 2/2 pna/ empyema. While there he had upper and lower endoscopies with ulcers and polyps respectively, chest tube for empyema 2/2 pna, IV abx currently finishing PO, and IVC filter placement as he had PE but could not be anticoagulated 2/2 bleeding ulcers and anemia - did receive 4 units PRBC. Chest tube was DCd, he was converted to PO abx and discharged home. He has been weak since admission. Today he was at [place] with his ambulating with a cart and became dizzy, LH , right sided blurred vision, tunnel vision and felt that he passed out while hanging onto the cart while he was ambulating. He does not think he fell to the floor, he was able to hang onto the cart and not fall. He became very pale and lost control of his bowels. He was brought to the ED by squad. He has residual right sided blurry vision. He denies headache, numbness/tingling/diplopia/focal weakness/slurred speech/ataxia. He denies hx of seizures. [] Past Medical History Past Medical History (Chronic Problems): Chronic Problems Diabetes (Chronic) Pulmonary embolism (Chronic) HTN (hypertension) (Chronic) Testicular cancer (Chronic) Allergies No Known Allergies Allergy (Verified 04/09/18 12:18) Home Medications: Ambulatory Orders Medication Instructions Recorded Empagliflozin [Jardiance] 25 mg PO DAILY 03/24/18 Insulin Degludec/Liraglutide 50 units SQ DAILY 03/24/18 [Xultophy 100 Unit-3.6MG/ml Pen] Losartan Potassium [Cozaar] 1 tab PO DAILY 03/24/18 Metformin HCl [Glucophage] 1 tab PO BID 03/24/18 Rosuvastatin Calcium [Rosuvastatin 40 mg PO DAILY 03/24/18 Calcium] Surgical History: - - IVC filter, chest tube Psychiatric History: No pertinent psych hx Lives: Spouse/ Significant Other Smoking Status: Former smoker Tobacco Use: Chew Alcohol: None Drugs: None - *Family History Maternal History Items: No pertinent history Paternal History Items: No pertinent history Review of Systems Constitutional: Reports: Weakness. Denies: Chills, Fever, Weight Change Eyes: Reports: Blurred vision, Vision Change HEENT: Reports: Visual Changes. Denies: Head Aches, Sinus Congestion, Sinus Drainage Cardiovascular: Denies: Chest Pain, Palpitations Respiratory: Denies: Cough, Shortness of breath at rest, Sputum production Gastrointestinal: Denies: Abdominal Pain, Nausea, Vomiting Genitourinary: Denies: Dysuria Musculoskeletal: Denies: Joint Pain, Joint Tenderness Skin: Denies: Rash, Wounds Neurological: Reports: Blurred vision, - - syncope. Denies: Focal weakness, Headaches, Numbness, Tingling Psychiatric: Denies: Anxiety, Depression, Homicidal Ideations, Suicidal Ideations Hematologic/ Lymphatic: Denies: Easy Bruising, Easy Bleeding VTE Information - Inpt Only VTE Present on Admission: No VTE Mechan Device Prophylaxis: SCD's VTE Pharm Prophylaxis ordered?: No Reason prophylaxis not ordered:: Medical Contraindication Patient Problems: Active and Suspected Problems Syncope (Acute) Lactic acidosis (Acute) Gastric ulcer (Acute) - Physical Exam General: Alert, Oriented x3, Cooperative HEENT: Atraumatic, PERRLA, EOMI, Normocephalic, - Oral: - - poor dentition Neck: Supple, No JVD, Negative Carotid Bruits Lungs: Clear to auscultation, Normal air movement Cardiovascular: Regular rate, No murmurs Abdomen: Bowel Sounds Present, Soft, Non Tender Extremities: No edema, Capillary Refill Less than 3 Seconds Skin: No rashes, No breakdown Musculoskeletal: No Tenderness to Palpation of Joints or Extremities Neurological: Cranial nerves II-XII grossly intact Psych/Mental Status: Normal Affect, Appropriate, Alert and oriented to time, place, person, mood and affect Vital Signs Temp Pulse Resp BP Pulse Ox 97.8 F 82 18 134/70 H 98 04/09/18 12:13 04/09/18 14:46 04/09/18 14:46 04/09/18 14:46 04/09/18 14:46 Oxygen Delivery Method Room Air Weight: 110.2 kg Body Mass Index (BMI) 36.9 Laboratory Tests Past 24 Hrs 04/09/18 04/09/18 04/09/18 12:00 12:00 12:45 WBC 6.6 RBC 4.31 L Hgb 11.2 L Hct 36.7 L MCV 85.2 MCH 26.0 L MCHC 30.5 L RDW 15.5 H RDW Differential 48.8 H Plt Count 165 MPV 10.4 Immature Gran % (Auto) 0.500 Neut % (Auto) 68.3 Lymph % (Auto) 21.8 [place] % (Auto) 8.0 Eos % (Auto) 1.1 Baso % (Auto) 0.3 Absolute Neuts (auto) 4.5 Absolute Lymphs (auto) 1.44 Total Counted Not Reportable Differential Comment SCANNED PT Cancelled INR Cancelled APTT Cancelled Sodium Potassium Chloride Carbon Dioxide Anion Gap BUN Creatinine Estim Creat Clear Calc Est GFR (MDRD) Af Amer Est GFR (MDRD) Non-Af BUN/Creatinine Ratio Glucose Lactic Acid Calcium Troponin I Blood Type B POSITIVE Antibody Screen NEGATIVE 04/09/18 04/09/18 04/09/18 12:45 13:10 14:15 WBC RBC Hgb Hct MCV MCH MCHC RDW RDW Differential Plt Count MPV Immature Gran % (Auto) Neut % (Auto) Lymph % (Auto) [place] % (Auto) Eos % (Auto) Baso % (Auto) Absolute Neuts (auto) Absolute Lymphs (auto) Total Counted Differential Comment PT 13.7 INR 1.1 APTT 25.4 Sodium 131 L Potassium 4.6 Chloride 100 Carbon Dioxide 17.0 L Anion Gap 14 BUN 15 Creatinine 1.25 Estim Creat Clear Calc 67.64 Est GFR (MDRD) Af Amer 78 Est GFR (MDRD) Non-Af 65 BUN/Creatinine Ratio 12.0 Glucose 414 H Lactic Acid 4.6 H* Calcium 9.3 Troponin I < 0.015 Blood Type Antibody Screen POC Glucose 04/09/18 12:18 POC Glucose 401 H Assessment/Plan All Active Problems Syncope (Acute) Lactic acidosis (Acute) Gastric ulcer (Acute) 1. Syncopal episode - while ambulating, LOC without fall to floor or head trauma , with residual blurred vision right eye, loss of bowel control. Recent hospital stay and discharge with PE/GI bleed/empyema 2/2 pna/ ICU stay / blood transfusions. Will obtain CT brain, consult neurology, obtain EEG, check orthos , hydrate with IV fluids. Consider MRI must find out if this is compatible with IVC filter. Obtain records from [facility]. Trop neg. -negative stress test <1 month ago -echo <1 month ago with EF 70%, no diastolic dysfxn. -denies hx seizures. 2. Lactic acidosis unclear etiology - hydrate with IV fluids. Obtain UA. 3. DMt2 with hyperglycemia - pt is not sure what he is now on after last hospital stay, obtain accurate home meds/dc med rec. Add SSI. 4. Hyponatremia - suspect pseudo 2/2 hyperglycemia 5. PEs - s/p IVC filter, will need to determine if this is compatible with MRI. No OAC 2/2 blood loss anemia GI bleed 6. Recent pna/empyema/chest tube - no respiratory complaints. Lungs clear. He has last dose of abx tonight. 7. Recent Blood loss anemia s/p 4 units PRBC presumed GI bleed 2/2 ulcers - PPI. Avoid thinners. Trend Hgb. No acute bleeds, no recent BRBPR or black stools. 8. Deconditioned from hospitalization - PTOT 9. HTN - home meds 10. HLD - statin DVT ppx: SCDs only. DC planning: PTOT This patient was seen by Pedro Singh PA-C under the supervision of Doctor Miki. <Emily Livingston - Last Filed: 04/09/18 16:23> History of Present Illness The patient is a 52 year old M [] Past Medical History Allergies No Known Allergies Allergy (Verified 04/09/18 12:18) - Physical Exam Vital Signs Temp Pulse Resp BP Pulse Ox 97.8 F 82 18 134/70 H 98 04/09/18 12:13 04/09/18 14:46 04/09/18 14:46 04/09/18 14:46 04/09/18 14:46 Weight: 108.2 kg Body Mass Index (BMI) 36.2 Assessment/Plan Patient was seen and examined with physician assistant kitchen manager Pedro Singh. I agree with his above history, physical exam and assessment and plan as documented in his note. Brief, this is a 52-year-old male who started having cough with chest pain as well as shortness of breath starting from February, when he saw his primary care doctor. He was treated for pneumonia. Patient subsequently reports about to the primary care doctor, had workup for shortness of breath with negative 2D echo and stress test. He reported to the ED on 03/24/2018 with progressive shortness of breath and was found to be severely anemic with hemoglobin of about 4, he was found also in A. fib with RVR, pulmonary embolism and with significant left-sided pleural effusion. Patient was transferred to [facility] and managed with 4 units of packed RBC, he had an IVC placed, he had an EGD and colonoscopy which showed some gastric ulcers and also polyps. Discharge 4 days ago from [facility] when he decides to go to [place] to get some streeter and as he was walking he felt like he was having atenolol vision, felt slightly dizzy, and lost consciousness several times with associated loss of bowels. No seizures was seen. His was with him at the moment. Vitals in the ED were negative, labs were unremarkable. Physical exam: General: Patient is alert oriented ?3, not pale, no jaundice, well hydrated, obese CVS: Heart sounds 1 and 2 heard, tachycardic, no murmurs were heard Respiratory: Clinically clear to auscultation Abdomen: Bowel sounds were present and normal, no areas of tenderness, no palpable organs RIPENING ROOM ATTENDANT: Patient was alert oriented ?3, He 5/5 in all extremities, normal tone, reflexes were intact, cranial nerve II through XII intact Psych: Appropriate affect A/P: 1. Syncope versus seizure 2. Metabolic acidosis secondary to lactic acidosis 3. Lactic acidosis, unclear etiology 4. Anemia secondary to recent GI bleed 5. History of PE status post IVC 6. Hypertension 7. Type II DM Plan: Immediate retrieval of records from [facility] IV hydration, orthostatic vitals Stat medication reconciliation form recent discharge Neurology consult MRI of the brain if IVC filter is compatible - to bring IVC filter card. EEG Repeat blood work in a.m. FOBT Insulin sliding scale with Accu-Cheks Code Visit Inpatient E&M: 49507 Init Hosp L3
--- NOTE | 2018-04-09 15:22 | CT_ITS ---
STUDY: CT BRAIN WITHOUT CONTRAST REASON FOR EXAM: Male, 52 years old. Right-sided blurred vision with syncope. Patient has history of testicular cancer. RADIATION DOSAGE (If Supplied By Facility): CTDIvol = ( 44.99 ) mGy, DLP = ( 745.49 ) mGycm TECHNIQUE: Transaxial CT imaging of the brain was performed without administration of intravenous contrast material. Multiplanar reformations are submitted for interpretation. Individualized dose optimization techniques were used for this CT. COMPARISON: None. FINDINGS: Normal soft tissue structures. Normal calvarium. There is mild cerebral atrophy with widening of the extra-axial spaces and ventricular dilatation. There are areas of decreased attenuation within the white matter tracts of the supratentorial brain, consistent with microvascular disease changes. Normal basal ganglia and thalami. Normal brainstem. Normal cerebellum. There is no intracranial hemorrhage. There are no findings of an acute ischemic infarction. Normal visualized paranasal sinuses. CT/Brain/Head without Contrast IMPRESSION: No CT evidence of acute intracranial hemorrhage. Electronically Signed: Camilla Moctezuma MD at 16:09 EDT , Service support ,
[2018-04-09 16:21] LABS: Bedside Glucose 329 mg/dL (70-110)
[2018-04-09] MEDS: 0.9% Normal Saline 1,000 ML 75 ML IV (17:07)
[2018-04-09 17:19] LABS: Reflex Lactate? Y
[2018-04-09 17:25] LABS: Lactic Acid 3.5 mmol/L (0.4-2.0)
[2018-04-09 17:55] LABS: Color, Urine Yellow (Yellow); Glucose, Dipstick 1000 mg/dl (Normal); Ketone-Dipstick Negative (Negative); Leukocyte Esterase-Dipstick Negative /ul (Negative); Nitrite-Dipstick Negative (Negative); Occult Blood-Urine Negative /ul (Negative); Protein-Dipstick Negative (Negative); Urine Bilirubin Dipstick Negative (Negative); Urine Clarity Clear (Clear); Urine Urobilinogen Normal (Normal)
[2018-04-09 20:49] LABS: Reflex Lactate? Y
[2018-04-09 21:42] LABS: Lactic Acid 2.2 mmol/L (0.4-2.0)
--- NOTE | 2018-04-09 21:46 | NURSING ---
Pts primary rn aware of pts lactic result of 2.2 at this time.
[2018-04-09] MEDS: Atorvastatin Calcium 80 MG Tablet PO (22:17)
[2018-04-09] MEDS: Baclofen 10 MG Tablet PO (22:17)
[2018-04-09 22:30] LABS: Bedside Glucose 267 mg/dL (70-110)
--- NOTE | 2018-04-09 23:24 | CPS ---
Pt wears PAP at home. This VAULT MAKER discussed with the patient the option of bringing in his home unit versus wearing the hospital unit. He stated that if he is not discharged tomorrow that someone from home would be able to bring him home unit in. Pt stated that he will wear oxygen tonight and not the hospital BiPAP unit.
--- NOTE | 2018-04-09 23:27 | CPS ---
Pt wears PAP at home. This PRINTED CIRCUIT BOARDS ROUTER discussed with the patient the option of bringing in his home unit versus wearing the hospital unit. He stated that if he is not discharged tomorrow that someone from home would be able to bring him home unit in. Pt stated that he will wear oxygen tonight and not the hospital BiPAP unit.
[2018-04-10 02:56] VITALS: PULSE 73
[2018-04-10 04:00] VITALS: BP 144/71; PULSE 82; RESP 16; TEMP 36.9; O2SAT 97
--- NOTE | 2018-04-10 12:00 | MRI_ITS ---
STUDY: MRA NECK WITH AND WITHOUT CONTRAST REASON FOR EXAM: Male, 52 years old. Stroke TECHNIQUE: 3-D uspi-qd-tmrjon (TOF) imaging was performed in an 1.5 T MRI scanner. 10 ml of Gadavist was administered for the contrast enhanced images. COMPARISON: None. FINDINGS: RIGHT CAROTID ARTERIES: Normal right common carotid artery (CCA). Normal right common carotid bulb. Normal origin of the right internal carotid (ICA) artery without a hemodynamically significant stenosis. Normal visualized cervical portion of the right internal carotid artery. Normal origin of the right external carotid artery (ECA). LEFT CAROTID ARTERIES: Normal left common carotid artery (CCA). Normal left common carotid bulb. Normal origin of the left internal carotid (ICA) artery without a hemodynamically significant stenosis. Normal visualized cervical portion of the left internal carotid artery. Normal origin of the left external carotid artery (ECA). VERTEBRAL ARTERIES: Normal antegrade flow within the bilateral vertebral artery without a hemodynamically significant stenosis. MRI/MRA Neck WITH and W/O Contrast IMPRESSION: Normal bilateral cervical carotid and vertebral arteries. Electronically Signed: Jordin Morgan MD at 20:33 EDT , Service support ,
--- NOTE | 2018-04-10 12:00 | MRI_ITS ---
STUDY: MRA OF THE HEAD WITHOUT CONTRAST REASON FOR EXAM: Male, 52 years old. Stroke TECHNIQUE: 3-D imwg-yo-sowaye (TOF) imaging was performed with MIPs. The study was performed unenhanced. COMPARISON: None. FINDINGS: Normal bilateral petrous carotid arteries. Normal right cavernous carotid artery with a normal supraclinoid bifurcation. Normal left cavernous carotid artery with a normal supraclinoid bifurcation. Normal right A1 segments of the anterior cerebral artery. Normal left A1 segments of the anterior cerebral artery. Anterior communicating artery not visualized consistent with developmental variant. Normal bilateral A2 segments of the anterior cerebral arteries. Normal right M1 and M2 segments of the middle cerebral arteries, with a normal M1 bifurcation. Normal left M1 and M2 segments of the middle cerebral arteries, with a normal M1 bifurcation. Normal right posterior communicating artery (PCOM). Normal left posterior communicating artery (PCOM). Normal bilateral vertebral arteries. Normal basilar artery with a normal basilar bifurcation. The visualized bilateral superior cerebellar (SCA) arteries are normal. Normal bilateral P1, P2 and visualized P3 segments of the posterior cerebral arteries. There is no demonstrated aneurysm of the [place]. There is no major vessel occlusion or hemodynamically significant stenosis. There is no demonstrated abnormality of the visualized brain. MRI/MRA Head ONLY without Contrast IMPRESSION: Normal MRA of the head Electronically Signed: Jordin Morgan MD at 20:17 EDT , Service support ,
--- NOTE | 2018-04-10 12:00 | MRI_ITS ---
STUDY: MRI BRAIN WITH AND WITHOUT CONTRAST REASON FOR EXAM: Male, 52 years old. Stroke, blurred vision right eye TECHNIQUE: Standardized multiplanar fat and water weighted pulse sequences were obtained. 10 ml of Gadavist contrast material was administered intravenously for the contrast portion of the examination. COMPARISON: CT of the brain on April 09, 2018 FINDINGS: Normal size of the ventricles and extra-axial spaces for the patient's age. Mild periventricular white matter ischemic changes without mass effect or restricted diffusion.. Normal bilateral basal ganglia. Normal thalami. There is no extra-axial fluid accumulation. Normal flow voids within the major intracranial circulation suggesting patency by spin echo criteria. Normal venous enhancement. There is no enhancing intra-axial or extra-axial abnormality. Normal sella turcica, pituitary gland, infundibular stalk, optic chiasm and hypothalamus. Normal tectal plate and pineal gland. Normal midbrain, francesco and medulla. Normal cerebellum. Normal basal cisterns. Normal bilateral temporal bones. Normal bilateral internal auditory canals. No demonstrated orbital abnormality, within the constraints of a routine brain study. Normal visualized paranasal sinuses. Normal calvarium and skull base. Normal visualized soft tissue structures. Normal visualized upper cervical spine. MRI/Brain without Contrast IMPRESSION: Minor periventricular white matter ischemic changes without evidence for acute infarct.. Electronically Signed: Jordin Morgan MD at 21:04 EDT , Service support ,
[2018-04-13 17:15] LABS: Hemoglobin 9.7 g/dl (13.0-16.5); Mean Corp Hgb Conc 30.3 g/gl (32-36); Mean Corpuscular Hgb 26.4 pg (27.0-32.0); Mean Corpuscular Volume 87.2 fL (80-94); Platelet Count 139 K/mm3 (150-450); RBC Distribution Width CV 15.4 % (11.6-14.6); Red Blood Count 3.67 M/mm3 (4.6-6.2); Scan Indicated on CBC? Y/N NO; White Blood Count 4.6 K/mm3 (4.4-11.0)
[2018-04-18 17:22] LABS: Bedside Glucose 159 mg/dL (70-110)
[2018-04-18 17:25] LABS: Bedside Glucose 231 mg/dL (70-110)
[2018-04-18 17:27] LABS: Bedside Glucose 167 mg/dL (70-110)
[2018-04-18 17:29] LABS: Bedside Glucose 192 mg/dL (70-110)
[2018-04-18 17:35] LABS: Bedside Glucose 197 mg/dL (70-110)
[2018-04-19 14:56] LABS: Anion Gap 12 (5-15); BUN 16 mg/dL (7-18); BUN/Creat Ratio 26.2 RATIO (10-20); Calcium,Total 8.8 mg/dL (8.5-10.1); Chloride 106 mmol/L (98-107); Creatinine, Serum 0.61 mg/dL (0.70-1.30); EST Glomerular Filtration Rate 148 mL/min (>60); Est Glom Filt Rate - Afr Amer 179 mL/min (>60); Estimated Creatinine Clearance 138.61 ml/min; Glucose 143 mg/dL (74-106); Sodium Level 141 mmol/L (136-145)
== END 2018-04-11 14:45 | disposition home or self-care (01) | DRG 312 ==
LOC: ED 13:15 → PCU 15:08
PROVIDERS: Physician Assistant; Admitting Provider Internal Medicine; Emergency Provider Emergency Medicine; Family Provider Family Medicine Geriatric Medicine; PCP Family Medicine Geriatric Medicine; Visit Provider Internal Medicine
DX: R55 Syncope and collapse (principal); E87.2 Acidosis; E87.1 Hypo-osmolality and hyponatremia; R15.9 Full incontinence of feces; Z86.711 Personal history of pulmonary embolism; D50.0 Iron deficiency anemia secondary to blood loss (chronic); E11.65 Type 2 diabetes mellitus with hyperglycemia; I10 Essential (primary) hypertension; Z85.47 Personal history of malignant neoplasm of testis; Z87.11 Personal history of peptic ulcer disease; Z87.891 Personal history of nicotine dependence; E78.5 Hyperlipidemia, unspecified; E66.01 Morbid (severe) obesity due to excess calories; Z71.3 Dietary counseling and surveillance; G47.33 Obstructive sleep apnea (adult) (pediatric); Z68.39 Body mass index [BMI] 39.0-39.9, adult; F32.9 Major depressive disorder, single episode, unspecified
CPT/HCPCS: 36415; 70450; 70544; 70549; 70551; 71045; 80048; 81002; 82274; 82962; 83605; 84484; 85025; 85027; 85610; 85730; 86850; 86900; 87040; 87070; 87077; 87086; 87088; 87184; 87186; 87205; 93005; 97162; 97166; 97802; 99285; A9585; J7030; J7040; A4216

== ENCOUNTER → 2018-04-20 16:39 | Outpatient (CLI) | payer BC, SELFPAY ==
[2018-04-20 17:33] LABS: Absolute Lymphocyte Count 1.96 X10^3/ul (0.83-4.51); Absolute Neutrophil Count 3.6 X10^3/uL (2.0-7.7); Basophil# 0.02 X10^3/uL; Basophil% 0.3 % (0-1); Eosinophil# 0.14 X10^3/uL; Eosinophils% 2.2 % (0-5); Hematocrit 33.8 % (40-54); Hemoglobin 10.6 g/dl (13.0-16.5); Lymphocyte # 1.96 X10^3/ul (4.0); Lymphocyte % 31.5 % (19-41); Mean Corp Hgb Conc 31.4 g/gl (32-36); Mean Platelet Vol. 10.3 fl (6.2-12.0); Neutrophil # 3.61 X10^3/uL (2.7-7.7); Platelet Count 156 K/mm3 (150-450); RBC Distribution Width CV 14.6 % (11.6-14.6); RBC Distribution Width SD 43.9 fl (35.1-43.9); Red Blood Count 4.07 M/mm3 (4.6-6.2); White Blood Count 6.2 K/mm3 (4.4-11.0)
[2018-04-20 17:58] LABS: POSITIVE COUNT NO; POSITIVE DIFFERENTIAL NO; POSITIVE MORPHOLOGY NO
[2018-04-20 18:00] LABS: ALB/GLOB Ratio 0.8 RATIO (0.9-2.4); AST(SGOT) 27 U/L (15-37); Alanine Aminotransfer ALT/SGPT 30 U/L (16-61); Albumin, Serum 3.3 g/dL (3.2-5.0); Alkaline Phosphatase 116 U/L (45-117); Anion Gap 11 (5-15); BUN 21 mg/dL (7-18); BUN/Creat Ratio 22.7 RATIO (10-20); Calcium,Total 8.9 mg/dL (8.5-10.1); Chloride 99 mmol/L (98-107); Creatinine, Serum 0.93 mg/dL (0.70-1.30); EST Glomerular Filtration Rate 91 mL/min (>60); Est Glom Filt Rate - Afr Amer 110 mL/min (>60); Globulin 4.1 g/dL (2.2-4.2); Glucose 277 mg/dL (74-106); PSA,Total - Annual Screen < 0.01 ng/mL (0.00-4.00); Potassium 4.2 mmol/L (3.5-5.1); Protein, Total 7.4 g/dL (6.4-8.2); Sodium Level 135 mmol/L (136-145); Thyroid Stim Hormone (TSH) 0.92 uIU/mL (0.358-3.74)
== END ==
PROVIDERS: Family Provider Family Medicine Geriatric Medicine; PCP Family Medicine Geriatric Medicine; Visit Provider Family Medicine Geriatric Medicine
DX: I10 Essential (primary) hypertension (principal); E11.9 Type 2 diabetes mellitus without complications; E23.6 Other disorders of pituitary gland; Z12.5 Encounter for screening for malignant neoplasm of prostate
CPT/HCPCS: 36415; 80053; 84153; 84403; 84443; 85025; G0103

== ENCOUNTER → 2018-04-21 09:13 | Outpatient (CLI) | payer BC, SELFPAY ==
--- NOTE | 2018-04-22 13:56 | EEG ---
- Electroencephalogram Of service 04/21/18 This is an 18 channel electroencephalogram performed utilizing the international 1020 electrode placement protocol as well as EKG reference leads, photic stimulation and hyperventilation. The patient experienced a loss of conscious episode but apparently has had issues with blood loss recently as well. Background activity is 11 Hz symmetrically in the posterior leads which attenuates with eye opening. Hyperventilation is performed for 5 minutes with good effort with no lateralizing or epileptiform changes. The post hyperventilatory phase is unremarkable. The patient remained awake throughout the recording with no lateralizing or epileptiform changes. EKG is normal sinus rhythm throughout the recording and photic stimulation generates a normal symmetric driving response in the posterior leads. Impression: Normal awake electroencephalogram
== END ==
PROVIDERS: Family Provider Family Medicine Geriatric Medicine; PCP Family Medicine Geriatric Medicine; Visit Provider Internal Medicine
DX: R55 Syncope and collapse (principal)
CPT/HCPCS: 95819

== ENCOUNTER → 2018-04-26 15:00 | Outpatient (CLI) | payer BC, SELFPAY ==
[2018-04-26 15:20] LABS: Absolute Lymphocyte Count 1.52 X10^3/ul (0.83-4.51); Absolute Neutrophil Count 5.1 X10^3/uL (2.0-7.7); Basophil# 0.02 X10^3/uL; Basophil% 0.3 % (0-1); Eosinophil# 0.16 X10^3/uL; Eosinophils% 2.2 % (0-5); Hematocrit 37.1 % (40-54); Hemoglobin 11.4 g/dl (13.0-16.5); Lymphocyte # 1.52 X10^3/ul (4.0); Lymphocyte % 20.8 % (19-41); Mean Corp Hgb Conc 30.7 g/gl (32-36); Mean Corpuscular Hgb 25.4 pg (27.0-32.0); Mean Corpuscular Volume 82.8 fL (80-94); Mean Platelet Vol. 10.2 fl (6.2-12.0); Monocyte# 0.48 X10^3/uL; Monocyte% 6.6 % (0-10); Neutrophil # 5.11 X10^3/uL (2.7-7.7); Platelet Count 125 K/mm3 (150-450); RBC Distribution Width CV 14.7 % (11.6-14.6); RBC Distribution Width SD 44.5 fl (35.1-43.9); Red Blood Count 4.48 M/mm3 (4.6-6.2); White Blood Count 7.3 K/mm3 (4.4-11.0)
[2018-04-26 15:25] LABS: POSITIVE COUNT NO; POSITIVE DIFFERENTIAL NO; POSITIVE MORPHOLOGY NO
[2018-04-26 15:38] LABS: ALB/GLOB Ratio 0.8 RATIO (0.9-2.4); AST(SGOT) 32 U/L (15-37); Alanine Aminotransfer ALT/SGPT 28 U/L (16-61); Albumin, Serum 3.5 g/dL (3.2-5.0); Alkaline Phosphatase 112 U/L (45-117); Anion Gap 8 (5-15); BUN 14 mg/dL (7-18); BUN/Creat Ratio 20.5 RATIO (10-20); Calcium,Total 8.9 mg/dL (8.5-10.1); Chloride 109 mmol/L (98-107); Creatinine, Serum 0.68 mg/dL (0.70-1.30); EST Glomerular Filtration Rate 130 mL/min (>60); Est Glom Filt Rate - Afr Amer 157 mL/min (>60); Globulin 4.2 g/dL (2.2-4.2); Glucose 210 mg/dL (74-106); Potassium 4.1 mmol/L (3.5-5.1); Protein, Total 7.7 g/dL (6.4-8.2); Sodium Level 138 mmol/L (136-145)
== END ==
PROVIDERS: Family Provider Family Medicine Geriatric Medicine; PCP Family Medicine Geriatric Medicine; Visit Provider Family Medicine Geriatric Medicine
DX: D64.9 Anemia, unspecified (principal); R63.4 Abnormal weight loss
CPT/HCPCS: 36415; 80053; 85025

== ENCOUNTER → 2018-04-26 17:08 | Outpatient (CLI) | payer BC, SELFPAY ==
--- NOTE | 2018-04-26 17:14 | CT_ITS ---
STUDY: CT ABDOMEN AND PELVIS WITH CONTRAST REASON FOR EXAM: Male, 52 years old. Right inguinal pain, recent IVC filter RADIATION DOSAGE (If Supplied By Facility): CTDIvol = ( 20.40 ) mGy, DLP = ( 1471.76 ) mGycm TECHNIQUE: Transaxial images were obtained from the lower chest to the upper thighs with oral contrast. 100 ml of Isovue 300 contrast was administered. Sagittal and coronal images were reconstructed. Individualized dose optimization techniques were used for this CT. COMPARISON: May 04, 2013 FINDINGS: There is minimal residual dense opacity in the posterior segment of the left lower lobe. There is minimal fluid in the left pleural margin. The heart is normal in size. The liver is unremarkable. There are a few small calcifications in the lumen of the gallbladder. The spleen is unremarkable. The pancreas is unremarkable. The adrenal glands are unremarkable. The right kidney is unremarkable. There is no dilatation of the collecting system in the right kidney. The left kidney is unremarkable. There is no dilatation of the collecting system in the left kidney. The stomach is unremarkable. The small bowel is unremarkable. There are a few diverticula in the distal colon without adjacent stranding. There is non-visualization of the appendix. There are minimal vascular calcifications. There is a filter in the infrarenal IVC. The retroperitoneum is unremarkable. There is no free fluid in the abdomen. There is wall thickening in the bladder. The prostate is normal in size with calcifications. There are small phleboliths scattered in the lower pelvis. There is minimal stranding in the right inguinal region. There are mild degenerative changes in the visualized spine. CT/Abdomen/Pelvis WITH Contrast IMPRESSION: There is mild stranding in the right inguinal region after catheterization. There are no loculated fluid collections in the right inguinal region. The filter is adequately positioned in the infrarenal IVC. There is wall thickening in the urinary bladder, possible cystitis. There is no hydronephrosis. There is no ascites, free air, inflammation or significant lymphadenopathy. There is resolving consolidation in the left lower lobe. There is a small residual left pleural effusion. There are a few gallstones in the lumen of the gallbladder without surrounding inflammation. Electronically Signed: Minnie Rogel MD at 18:30 EDT Tel Direct: [phone], Service support ,
== END ==
PROVIDERS: Family Provider Family Medicine Geriatric Medicine; PCP Family Medicine Geriatric Medicine; Visit Provider Family Medicine Geriatric Medicine
DX: K57.32 Diverticulitis of large intestine without perforation or abscess without bleeding (principal)
CPT/HCPCS: 74177; Q9967

== ENCOUNTER → 2018-04-28 09:09 | Outpatient (CLI) | payer BC, SELFPAY | PROVIDERS: Family Provider Family Medicine Geriatric Medicine; PCP Family Medicine Geriatric Medicine; Visit Provider Family Medicine Geriatric Medicine | DX: R19.7 Diarrhea, unspecified (principal) | CPT/HCPCS: 82274; 83630; 87177; 87209; 87493; 87506 ==

== ENCOUNTER → 2018-06-19 11:15 | Outpatient (CLI) | payer BC, SELFPAY | PROVIDERS: Family Provider Family Medicine Geriatric Medicine; PCP Family Medicine Geriatric Medicine; Visit Provider Family Medicine Geriatric Medicine | DX: R07.89 Other chest pain (principal) | CPT/HCPCS: 71101 ==

== ENCOUNTER → 2018-07-19 15:55 | Outpatient (CLI) | payer BC, SELFPAY ==
[2018-07-19 17:14] LABS: Absolute Lymphocyte Count 2.66 X10^3/ul (0.83-4.51); Absolute Neutrophil Count 5.3 X10^3/uL (2.0-7.7); Basophil# 0.02 X10^3/uL; Basophil% 0.2 % (0-1); Eosinophil# 0.12 X10^3/uL; Eosinophils% 1.4 % (0-5); Hematocrit 40.1 % (40-54); Hemoglobin 13.3 g/dl (13.0-16.5); Lymphocyte # 2.66 X10^3/ul (4.0); Lymphocyte % 30.2 % (19-41); Mean Corp Hgb Conc 33.2 g/gl (32-36); Mean Corpuscular Hgb 26.4 pg (27.0-32.0); Mean Corpuscular Volume 79.7 fL (80-94); Monocyte# 0.65 X10^3/uL; Monocyte% 7.4 % (0-10); Neutrophil # 5.33 X10^3/uL (2.7-7.7); Neutrophil % 60.5 % (47-70); Platelet Count 108 K/mm3 (150-450); RBC Distribution Width CV 15.9 % (11.6-14.6); RBC Distribution Width SD 45.8 fl (35.1-43.9); Red Blood Count 5.03 M/mm3 (4.6-6.2); White Blood Count 8.8 K/mm3 (4.4-11.0)
[2018-07-19 17:22] LABS: POSITIVE COUNT NO; POSITIVE DIFFERENTIAL NO; POSITIVE MORPHOLOGY NO
[2018-07-19 18:17] LABS: AST(SGOT) 26 U/L (15-37); Alanine Aminotransfer ALT/SGPT 39 U/L (16-61); Albumin, Serum 3.6 g/dL (3.2-5.0); Alkaline Phosphatase 112 U/L (45-117); Anion Gap 12 (5-15); BUN 29 mg/dL (7-18); BUN/Creat Ratio 35.8 RATIO (10-20); Calcium,Total 9.1 mg/dL (8.5-10.1); Chloride 104 mmol/L (98-107); Creatinine, Serum 0.81 mg/dL (0.70-1.30); EST Glomerular Filtration Rate 106 mL/min (>60); Est Glom Filt Rate - Afr Amer 129 mL/min (>60); Globulin 3.7 g/dL (2.2-4.2); Glucose 100 mg/dL (74-106); Protein, Total 7.3 g/dL (6.4-8.2); Sodium Level 138 mmol/L (136-145); Thyroid Stim Hormone (TSH) 0.74 uIU/mL (0.358-3.74)
== END ==
PROVIDERS: Family Provider Family Medicine Geriatric Medicine; PCP Family Medicine Geriatric Medicine; Visit Provider Family Medicine Geriatric Medicine
DX: I10 Essential (primary) hypertension (principal); E11.9 Type 2 diabetes mellitus without complications; E23.6 Other disorders of pituitary gland
CPT/HCPCS: 36415; 80053; 84403; 84443; 85025

== ENCOUNTER → 2018-08-21 14:31 | Outpatient (CLI) | payer BC, SELFPAY ==
--- NOTE | 2018-08-21 14:40 | RAD_ITS ---
STUDY: X-RAY CHEST REASON FOR EXAM: Male, 52 years old. Shortness of breath TECHNIQUE: PA and lateral views of the chest. COMPARISON: 06/19/2018 FINDINGS: The lungs are clear and expanded. There is no demonstrated pleural abnormality. Normal size heart. Normal mediastinum and lucy. Normal visualized pulmonary arteries. Normal visualized aortic arch and descending thoracic aorta. Normal visualized thoracic spine. Normal visualized ribs, clavicles, and shoulders. There is no demonstrated abnormality of the visualized soft tissue structures of the upper abdomen. RAD/Chest PA and Lateral IMPRESSION: Normal x-ray examination of the chest. Electronically Signed: David So DO at 12:46 EDT Tel , Service support ,
== END ==
PROVIDERS: Family Provider Family Medicine Geriatric Medicine; PCP Family Medicine Geriatric Medicine; Referring Provider Family Medicine Geriatric Medicine; Visit Provider Family Medicine Geriatric Medicine
DX: R06.89 Other abnormalities of breathing (principal); R68.83 Chills (without fever)
CPT/HCPCS: 71046; 87633

== ENCOUNTER → 2018-10-17 16:12 | Outpatient (CLI) | payer BC, SELFPAY ==
[2018-10-17 17:03] LABS: Absolute Lymphocyte Count 1.99 X10^3/ul (0.83-4.51); Absolute Neutrophil Count 5.9 X10^3/uL (2.0-7.7); Basophil# 0.02 X10^3/uL; Basophil% 0.2 % (0-1); Eosinophil# 0.13 X10^3/uL; Eosinophils% 1.5 % (0-5); Hematocrit 42.5 % (40-54); Hemoglobin 14.2 g/dl (13.0-16.5); Lymphocyte # 1.99 X10^3/ul (4.0); Lymphocyte % 22.9 % (19-41); Mean Corp Hgb Conc 33.4 g/gl (32-36); Mean Corpuscular Hgb 27.8 pg (27.0-32.0); Mean Corpuscular Volume 83.3 fL (80-94); Mean Platelet Vol. 11.2 fl (6.2-12.0); Monocyte# 0.64 X10^3/uL; Monocyte% 7.4 % (0-10); Neutrophil # 5.87 X10^3/uL (2.7-7.7); Neutrophil % 67.5 % (47-70); Platelet Count 114 K/mm3 (150-450); RBC Distribution Width CV 13.5 % (11.6-14.6); RBC Distribution Width SD 40.6 fl (35.1-43.9); White Blood Count 8.7 K/mm3 (4.4-11.0)
[2018-10-17 17:08] LABS: POSITIVE COUNT NO; POSITIVE DIFFERENTIAL NO; POSITIVE MORPHOLOGY NO
[2018-10-17 17:25] LABS: AST(SGOT) 24 U/L (15-37); Alanine Aminotransfer ALT/SGPT 44 U/L (16-61); Albumin, Serum 3.8 g/dL (3.2-5.0); Alkaline Phosphatase 117 U/L (45-117); Anion Gap 8 (5-15); BUN 26 mg/dL (7-18); BUN/Creat Ratio 31.6 RATIO (10-20); Calcium,Total 8.8 mg/dL (8.5-10.1); Chloride 100 mmol/L (98-107); Creatinine, Serum 0.82 mg/dL (0.70-1.30); EST Glomerular Filtration Rate 104 mL/min (>60); Est Glom Filt Rate - Afr Amer 126 mL/min (>60); Globulin 3.8 g/dL (2.2-4.2); Glucose 245 mg/dL (74-106); Potassium 4.1 mmol/L (3.5-5.1); Protein, Total 7.6 g/dL (6.4-8.2); Sodium Level 133 mmol/L (136-145); Thyroid Stim Hormone (TSH) 1.17 uIU/mL (0.358-3.74)
--- OUTSIDE RECORDS SUMMARY | 2018-12-03 23:27 | XMS RPT_ITS ---
:1965 Author Organization OHIP Support Name Relationship Address Phone [employer] Unavailable [address] + [address] [place] [address] ISAURA MATSONN Unavailable [address] + [place] [address] [employer] Unavailable [address] + [address] [place] [address] DANO JACOB Unavailable [address] + [place] [address] [employer] Unavailable [address] + [address] [place] [address] DANO JACOB Unavailable [address] + [place] [address] [employer] Unavailable [address] + [address] [place] [address] DANO JACOB Unavailable [address] + [place] [address] [employer] Unavailable [address] + [address] [place] [address] DANO JACOB Unavailable [address] + [place] [address] [employer] Unavailable [address] + [address] [place] [address] DANO JACOB Unavailable [address] + [place] [address] [employer] Unavailable [address] + [address] [place] [address] DANO JACOB Unavailable [address] + [place] [address] [employer] Unavailable [address] + [address] [place] [address] HISER, JACOB Unavailable [address] + [place] [address] [employer] Unavailable [address] + [address] [place] [address] HISER, JACOB Unavailable [address] + [place] [address] [employer] Unavailable [address] + [address] [place] [address] HISER, JACOB Unavailable [address] + [place] [address] [employer] Unavailable [address] + [address] [place] [address] HISER, JACOB Unavailable [address] + [place] [address] [employer] Unavailable [address] + [address] [place] [address] HISER, JACOB Unavailable [address] + [place] [address] [employer] Unavailable [address] + [address] [place] [address] HISER, JACOB Unavailable [address] + [place] [address] [employer] Unavailable [address] + [address] [place] [address] HISER, JACOB Unavailable [address] + [place] [address] [employer] Unavailable [address] + [address] [place] [address] HISER, JACOB Unavailable [address] + [place] [address] [employer] Unavailable [address] + [address] [place] [address] HISER, AJCOB Unavailable [address] + [place] [address] [employer] Unavailable [address] + [address] [place] [address] HISER, JACOB Unavailable [address] + [place] [address] [employer] Unavailable [address] + [address] [place] [address] JACOB MATSON Unavailable [address] + [place] [address] [employer] Unavailable [address] + [address] [place] [address] KIKE MATSONN Unavailable [address] + [place] [address] [employer] Unavailable [address] + [address] [place] [address] KIKE MATSONN Unavailable [address] + [place] [address] [employer] Unavailable [address] + [address] [place] [address] NINA MATSON Unavailable [address] + [place] [address] Care Team Providers Name Role Phone Herminio, Ravindra Chi Attending Unavailable Herminio, Ravindra Chi Primary Care Unavailable Herminio, Ravindra Chi Attending Unavailable Herminio, Ravindra Chi Referring Unavailable Herminio, Ravindra Chi Primary Care Unavailable Herminio, Ravindra Chi Attending Unavailable Herminio, Ravindra Chi Referring Unavailable Herminio, Ravindra Chi Primary Care Unavailable Herminio, Ravindra Chi Primary Care Unavailable Fred Brooks Attending Unavailable Herminio, Ravindra Chi Attending Unavailable Herminio, Ravindra Chi Primary Care Unavailable Herminio, Ravindra Chi Attending Unavailable Herminio, Ravindra Chi Primary Care Unavailable Herminio, Ravindra Chi Attending Unavailable Herminio, Ravidnra Chi Primary Care Unavailable Herminoi, Ravindra Chi Attending Unavailable Herminio, Ravindra Chi Referring Unavailable Herminio, Ravindra Chi Primary Care Unavailable Herminio, Ravindra Chi Attending Unavailable Herminio, Ravindra Chi Primary Care Unavailable Herminio, Ravindra Chi Referring Unavailable Bobo Aragon Attending Unavailable Herminio, Ravindra Chi Primary Care Unavailable Herminio, Ravindra Chi Attending Unavailable Herminio, Ravindra Chi Primary Care Unavailable Bobo Aragon Attending Unavailable Yon Ruiz Attending Unavailable Herminio, Ravindra Chi Referring Unavailable Yon Ruiz Attending Unavailable [place], [place] Admitting Unavailable Herminio, Ravindra Chi Primary Care Unavailable [place], [place] Consulting Unavailable [place], [place] Attending Unavailable Herminio, Ravindra Chi Primary Care Unavailable [place], [place] Admitting Unavailable [place], [place] Attending Unavailable Gabino Abbott Consulting Unavailable Dorian Boucher Attending Unavailable Herminio, Ravindra Chi Referring Unavailable Herminio, Ravindra Chi Attending Unavailable Herminio, Ravindra Chi Referring Unavailable Herminio, Ravindra Chi Primary Care Unavailable Herminio, Ravindra Chi Attending Unavailable Herminio, Ravindra Chi Primary Care Unavailable Herminio, Ravindra Chi Attending Unavailable Herminio, Ravindra Chi Referring Unavailable Herminio, Ravindra Chi Primary Care Unavailable Herminio, Ravindra Chi Attending Unavailable Herminio, Ravindra Chi Referring Unavailable Herminio, Ravindra Chi Primary Care Unavailable KESELMAN, ABBY Admitting Unavailable REBECCAY, AHMED Attending Unavailable KELI LAUREANO Consulting Unavailable Trevor RUIZ Consulting Unavailable MIGUEL, ABBY Admitting Unavailable DREW PALENCIA Attending Unavailable BARBARA CASTILLO Consulting Unavailable Trevor MONTELONGO Consulting Unavailable Trevor LAUREANO Consulting Unavailable PROBLEMS PROBLEMS DATE TYPE CONDITION / CODE ATTENDING STATUS SOURCE Unknown R06.89 - Other Herminio, Ravindra Chi Active [place] 8 abnormalities of Community breathing / Hospital R06.89(ICD-10) Repository Unknown R68.83 - Chills Herminio, Ravindra Chi Active [place] 8 (without fever) / Community R68.83(ICD-10) Hospital Repository Unknown E11.9 - Type 2 Herminio, Ravindra Chi Active [place] 8 diabetes mellitus Community without complications Hospital / E11.9(ICD-10) Repository Unknown 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, 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 Community gland / E23.6(ICD-10) Hospital Repository Unknown I10 - Essential Herminio, Ravindra Chi Active [place] 8 (primary) hypertension Community / I10(ICD-10) Hospital Repository Unknown R07.89 - Other chest Herminio, Ravindra Chi Active [place] 8 pain / R07.89(ICD-10) Community Hospital Repository Unknown R19.7 - Diarrhea, Herminio, Ravindra Chi Active [place] 8 unspecified / Community R19.7(ICD-10) Hospital Repository Active Gastrointestinal Brunilda PALENCIA 8 hemorrhage, [facility] Clinic Other unspecified / [place] K92.2(ICD-10) Repository Active Anemia, unspecified / [place], Active [place] 8 D64.9(ICD-10) [facility] Clinic Other [place] Repository Active Pleural effusion, not [place], Active [place] 8 elsewhere classified / MED Clinic Other J90(ICD-10) [place] Repository Active Other pulmonary [place], Active [place] 8 embolism without acute [facility] Clinic Other cor pulmonale / [place] I26.99(ICD-10) Repository Active Obstructive sleep [place], Active [place] 8 apnea (adult) 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 [facility] Other devices / [place] Z99.89(ICD-10) Repository Admitting Unknown / UNK(Unknown) [place], Active [facility] 8 diagnosis [facility] Repository Unknown R94.31 - Abnormal [place], Active [place] 8 electrocardiogram [facility] [ECG] [EKG] / Hospital R94.31(ICD-10) Repository Unknown R06.02 - Shortness of [place], Active [place] 8 breath / [facility] R06.02(ICD-10) Hospital Repository Unknown R07.9 - Chest pain, Herminio, Ravindra Chi Active [place] 8 unspecified / Community R07.9(ICD-10) Hospital Repository Unknown R50.9 - Fever, Herminio, Ravindra Chi Active [place] 8 unspecified / Community R50.9(ICD-10) Hospital Repository PROCEDURES PROCEDURES No Procedure Records FoundRESULTS RESULTS CBC W/DIFF, AUTOMATED Collected: 10/17/2018 Status: F Source: [place] 4:14 PM [facility] REPOSITORY TYPE CODE TESTS RESULT OUT OF RANGE REFERENCE UNITS LAB L100.1000 4.4-11.0 K/mm3 Normal WBC 8.7 LAB L100.1200 4.6-6.2 M/mm3 Normal RBC 5.10 LAB L100.1300 13.0-16.5 g/dl Normal HGB 14.2 LAB L100.1400 40-54 % Normal HCT 42.5 LAB L100.1500 80-94 fL Normal MCV 83.3 LAB L100.1600 27.0-32.0 pg Normal MCH 27.8 LAB L100.1700 32-36 g/gl Normal MCHC 33.4 LAB L100.1810 11.6-14.6 % Normal RDW CV 13.5 LAB L100.1820 35.1-43.9 fl Normal RDW SD 40.6 LAB L100.1900 150-450 K/mm3 Low PLT 114 LAB L100.2000 6.2-12.0 fl Normal MPV 11.2 LAB L100.2100 47-70 % Normal NEUT% 67.5 LAB L100.2200 19-41 % Normal LY% 22.9 LAB L100.2300 0-10 % Normal MONO% 7.4 LAB L100.2400 0-5 % Normal EO% 1.5 LAB L100.2500 0-1 % Normal BASO% 0.2 LAB L100.2550 0.0-0.9 % Normal IM GRAN % 0.500 Result Comment: IG% - Immature Granulocytes (promyelocytes, myelocytes and metamyelocytes) > 1% indicates that a LEFT SHIFT is Present. LAB L100.2620 2.0-7.7 X10 3/uL Normal Absolute Neut 5.9 LAB L100.2720 0.83-4.51 X10 3/ul Normal Absolute Lymph 1.99 Performed By: #### L100.0100 #### [facility] [place], [address] TESTOSTERONE, SERUM TOTAL Collected: 10/17/2018 Status: F Source: [place] 4:14 PM [facility] [place] [place] REPOSITORY TYPE CODE TESTS RESULT OUT OF REFERENCE UNITS RANGE LAB L509.3000 ng/dL Testosterone Normal 63.78 Result Comment: NORMAL REFERENCE RANGES MALE AGE <50 123.06 - 813.86 ng/dL MALE AGE >50 89.98 - 780.10 ng/dL FEMALE PREMENOPAUSE AGE 21 - 60 9.01 - 47.94 ng/dL FEMALE POSTMENOPAUSE AGE 45 - 89 <7.00 - 45.62 ng/dL REFERENCE RANGE AND METHODOLOGY CHANGED 10/26/2017 Performed By: #### L509.3000 #### [facility] [address] [place], [address] COMPREHENSIVE METABOLIC Collected: 10/17/2018 Status: F Source: [place] 4:14 PM [facility] [place] [place] REPOSITORY TYPE CODE TESTS RESULT OUT OF RANGE REFERENCE UNITS LAB L501.0100 74-106 mg/dL High GLU 245 Result Comment: Glucose result greater than or equal to 200 mg/dL suggests DIABETES MELLITUS per A.D.A. criteria. Please note revised GLUCOSE reference range effective 2017. LAB L501.1000 7-18 mg/dL High BUN 26 LAB L501.1100 0.70-1.30 mg/dL Normal CREAT,SERUM 0.82 Result Comment: The validity of the calculated GFR AND GFRAA in patients over 70 years has not been determined. Clinical correlation is essential. LAB L501.1110 >60 mL/min Normal EST GFR 104 Result Comment: Non- GFR Calc LAB L501.1115 >60 mL/min Normal EST GFR - AA 126 Result Comment: GFR Calc LAB L501.1300 10-20 RATIO High BUN/CRE 31.6 LAB L501.1500 6.4-8.2 g/dL T Normal PROT 7.6 LAB L501.1800 3.2-5.0 g/dL Normal ALB 3.8 LAB L501.1950 2.2-4.2 g/dL Normal GLOB 3.8 LAB L501.2000 0.9-2.4 RATIO Normal A/G 1.0 LAB L501.2200 8.5-10.1 mg/dL CA Normal 8.8 LAB L501.4100 15-37 U/L Normal AST 24 LAB L501.4305 45-117 U/L Normal ALK P 117 LAB L501.4405 16-61 U/L Normal ALT 44 LAB L501.4600 0.20-1.00 mg/dL High T BILI 1.10 LAB L501.5300 136-145 mmol/L Low NA 133 LAB L501.5600 3.5-5.1 mmol/L K Normal 4.1 LAB L501.5900 98-107 mmol/L CL Normal 100 LAB L501.6100 21.0-32.0 mmol/L Normal CO2 25.0 LAB L501.6200 5-15 Normal GAP 8 Performed By: #### L500.4050, L501.9520 #### [facility] [address] [facility] [place], [address] THYROID STIM HORMONE Collected: 10/17/2018 Status: F Source: [place] (TSH) 4:14 PM [facility] [place] [place] REPOSITORY TYPE CODE TESTS RESULT OUT OF RANGE REFERENCE UNITS LAB L501.9520 0.358-3.74 uIU/mL Normal TSH 1.17 Performed By: #### L500.4050, L501.9520 #### [facility] [address] [place], [address] Observed: 08/21/2018 Status: F Source: [place] RESPIRATORY PANEL 2:40 PM [facility] [place] [place] MOLECULAR REPOSITORY RP PANEL ADENOVIRUS Not Detected HUMAN METAPHNEUMO Not Detected INFLUENZA A Not Detected INFLUENZA A (SUBTYPE H1) Not Detected INFLUENZA A (SUBTYPE H3) Not Detected INFLUENZA B Not Detected PARAINFLUENZA 1 Not Detected PARAINFLUENZA 2 Not Detected PARAINFLUENZA 3 Not Detected PARAINFLUENZA 4 Not Detected RHINOVIRUS Not Detected RSV A Not Detected RSV B Not Detected NAAT METHOD Testing was performed using nucleic acid amplification Performed By: #### M100.638 #### [facility] [address] [place], [address] CHEST PA AND LATERAL Observed: 08/21/2018 Status: F Source: [place] 2:40 PM [facility] [place] [place] REPOSITORY [facility] Imaging Services [address] [place] [address] Chest PA and Lateral MR#: [id number] Acct: [id number] Name: JOEL MATSON Rep #: [id number] : 1965 M 52 From: David So DO PCP: Herminio GARCIA,Ravindra Russo Status: REG CLI Study: Chest PA and Lateral Date of Exam: 08/21/18 Exam# [id number] Ordering Dr: Ravindra Durham MD STUDY: X-RAY CHEST REASON FOR EXAM: Male, 52 years old. Shortness of breath TECHNIQUE: PA and lateral views of the chest. COMPARISON: 06/19/2018 FINDINGS: The lungs are clear and expanded. There is no demonstrated pleural abnormality. Normal size heart. Normal mediastinum and lucy. Normal visualized pulmonary arteries. Normal visualized aortic arch and descending thoracic aorta. Normal visualized thoracic spine. Normal visualized ribs, clavicles, and shoulders. There is no demonstrated abnormality of the visualized soft tissue structures of the upper abdomen. RAD/Chest PA and Lateral IMPRESSION: Normal x-ray examination of the chest. Electronically Signed: David So DO at 12:46 EDT Tel , Service support , CC: Ravindra Durham MD State Pilot: Signed CBC W/DIFF, AUTOMATED Collected: 07/19/2018 Status: F Source: [place] 3:55 PM [facility] [place] [place] REPOSITORY TYPE CODE TESTS RESULT OUT OF RANGE REFERENCE UNITS LAB L100.1000 4.4-11.0 K/mm3 Normal WBC 8.8 LAB L100.1200 4.6-6.2 M/mm3 Normal RBC 5.03 LAB L100.1300 13.0-16.5 g/dl Normal HGB 13.3 LAB L100.1400 40-54 % Normal HCT 40.1 LAB L100.1500 80-94 fL Low MCV 79.7 LAB L100.1600 27.0-32.0 pg Low MCH 26.4 LAB L100.1700 32-36 g/gl Normal MCHC 33.2 LAB L100.1810 11.6-14.6 % High RDW CV 15.9 LAB L100.1820 35.1-43.9 fl High RDW SD 45.8 LAB L100.1900 150-450 K/mm3 Low PLT 108 LAB L100.2000 6.2-12.0 fl Normal MPV 11.0 LAB L100.2100 47-70 % Normal NEUT% 60.5 LAB L100.2200 19-41 % Normal LY% 30.2 LAB L100.2300 0-10 % Normal MONO% 7.4 LAB L100.2400 0-5 % Normal EO% 1.4 LAB L100.2500 0-1 % Normal BASO% 0.2 LAB L100.2550 0.0-0.9 % Normal IM GRAN % 0.300 Result Comment: IG% - Immature Granulocytes (promyelocytes, myelocytes and metamyelocytes) > 1% indicates that a LEFT SHIFT is Present. LAB L100.2620 2.0-7.7 X10 3/uL Normal Absolute Neut 5.3 LAB L100.2720 0.83-4.51 X10 3/ul Normal Absolute Lymph 2.66 Performed By: #### L100.0100 #### [facility] [address] [place], [address] COMPREHENSIVE METABOLIC Collected: 07/19/2018 Status: F Source: [facility] 3:55 PM [facility] [place] [place] REPOSITORY TYPE CODE TESTS RESULT OUT OF RANGE REFERENCE UNITS LAB L501.0100 74-106 mg/dL Normal GLU 100 Result Comment: Fasting Glucose result from 100 to 125 mg/dL suggests IMPAIRED HOMEOSTASIS per A.D.A. criteria. Please note revised GLUCOSE reference range effective 2017. LAB L501.1000 7-18 mg/dL High BUN 29 LAB L501.1100 0.70-1.30 mg/dL Normal CREAT,SERUM 0.81 Result Comment: The validity of the calculated GFR AND GFRAA in patients over 70 years has not been determined. Clinical correlation is essential. LAB L501.1110 >60 mL/min Normal EST GFR 106 Result Comment: Non- GFR Calc LAB L501.1115 >60 mL/min Normal EST GFR - AA 129 Result Comment: GFR Calc LAB L501.1300 10-20 RATIO High BUN/CRE 35.8 LAB L501.1500 6.4-8.2 g/dL T Normal PROT 7.3 LAB L501.1800 3.2-5.0 g/dL Normal ALB 3.6 LAB L501.1950 2.2-4.2 g/dL Normal GLOB 3.7 LAB L501.2000 0.9-2.4 RATIO Normal A/G 1.0 LAB L501.2200 8.5-10.1 mg/dL CA Normal 9.1 LAB L501.4100 15-37 U/L Normal AST 26 LAB L501.4305 45-117 U/L Normal ALK P 112 LAB L501.4405 16-61 U/L Normal ALT 39 LAB L501.4600 0.20-1.00 mg/dL High T BILI 1.30 LAB L501.5300 136-145 mmol/L NA Normal 138 LAB L501.5600 3.5-5.1 mmol/L K Normal 4.0 LAB L501.5900 98-107 mmol/L CL Normal 104 LAB L501.6100 21.0-32.0 mmol/L Normal CO2 22.0 LAB L501.6200 5-15 Normal GAP 12 Performed By: #### L500.4050, L501.9520 #### [facility] [address] [place], [place], [address] THYROID STIM HORMONE Collected: 07/19/2018 Status: F Source: [place] (TSH) 3:55 PM [facility] [place] [place] REPOSITORY TYPE CODE TESTS RESULT OUT OF RANGE REFERENCE UNITS LAB L501.9520 0.358-3.74 uIU/mL Normal TSH 0.74 Performed By: #### L500.4050, L501.9520 #### [facility] [address] [place], [address] TESTOSTERONE, SERUM TOTAL Collected: 07/19/2018 Status: F Source: [place] 3:55 PM [facility] [place] [place] REPOSITORY TYPE CODE TESTS RESULT OUT OF REFERENCE UNITS RANGE LAB L509.3000 ng/dL Testosterone Normal 8.36 Result Comment: NORMAL REFERENCE RANGES MALE AGE <50 123.06 - 813.86 ng/dL MALE AGE >50 89.98 - 780.10 ng/dL FEMALE PREMENOPAUSE AGE 21 - 60 9.01 - 47.94 ng/dL FEMALE POSTMENOPAUSE AGE 45 - 89 <7.00 - 45.62 ng/dL REFERENCE RANGE AND METHODOLOGY CHANGED 10/26/2017 Performed By: #### L509.3000 #### [facility] [address] [place], [address] RIBS UNI MIN 3V Observed: 06/19/2018 Status: F Source: [place] W/PA CHEST 11:17 AM [facility] [place] [place] REPOSITORY [facility] Imaging Services [address] [place] [address] Ribs Uni Min 3V w/PA Chest MR#: [id number] Acct: [id number] Name: JOEL MATSON Rep #: [id number] : 1965 M 52 From: David So DO PCP: Ravindra Durham MD, Chi Status: REG CLI Study: Ribs Uni Min 3V w/PA Chest Date of Exam: 06/19/18 Exam# [id number] Ordering Dr: Ravindra Durham MD STUDY: X-RAY - UNILATERAL RIBS ( LEFT ) WITH CHEST REASON FOR EXAM: Male, 52 years old. Anterolateral mid level rib pain after fall TECHNIQUE - RIBS: 4 view(s) of the ribs. TECHNIQUE - CHEST: Single frontal view of the chest. COMPARISON: None. FINDINGS - RIBS: Normal visualized ribs without a demonstrated fracture. FINDINGS - CHEST: The lungs are clear and expanded. There is no demonstrated pleural abnormality. Normal size heart. Normal mediastinum and lucy. Normal visualized pulmonary arteries. Normal visualized aortic arch and descending thoracic aorta. Normal visualized thoracic spine. Normal visualized ribs, clavicles, and shoulders. There is no demonstrated abnormality of the visualized soft tissue structures of the upper abdomen. RAD/Ribs Uni Min 3V w/PA Chest IMPRESSION: RIBS: Normal x-ray examination of the ribs. CHEST: Normal x-ray examination of the chest. Electronically Signed: David So DO at 8:20 EDT Tel , Service support , CC: Ravindra Durham MD State Pilot: Signed STOOL Observed: 04/27/2018 Status: F Source: [place] LACTOFERRIN/WBC 5:00 PM [facility] [place] [place] REPOSITORY Stool Lacto/WBC Normal Reference Range = Negative Fecal WBC Lactoferrin Negative: No Fecal WBC Lactoferrin present Performed By: #### M100.0605, M100.7900, M100.6796, M100.637 #### [facility] [address] [place], [place], [address] Observed: 04/27/2018 Status: F Source: [place] STOOL OCCULT BLOOD 5:00 PM [facility] [place] [place] IFOB REPOSITORY STOB iFOB Occult Blood Negative Performed By: #### M100.0605, M100.7900, M100.6796, M100.637 #### [facility] [address] [place], [address] Observed: 04/27/2018 Status: F Source: [place] CDIFF (MOLECULAR) 5:00 PM [facility] [place] [place] REPOSITORY Cdiff-Molecular Normal Reference Range = Negative C. Diff DNA Negative- No toxigenic C. Diff DNA Detected NAAT METHOD Testing was performed using nucleic acid amplification Performed By: #### M100.0605, M100.7900, M100.6796, M100.637 #### [facility] [address] [place], [place], [address] Observed: 04/27/2018 Status: F Source: [place] ENTERIC PATHOGEN 5:00 PM [facility] [place] [place] PANEL STOOL REPOSITORY EP PANEL STOOL Not detected for Campylobacter group, Salmonella species, Shigella species, Vibrio Group, Yersinia enterocolitica, EHEC (Shiga Toxin 1, Shiga Toxin 2), Norovirus Gl/Gll, and Rotavirus A. Other common stool pathogens are not detected on this panel include: Aeromonas/Plesiomonas or parasites. Order testing for these organisms separately if suspected. This is an amplified DNA test which makes it both specific and sensitive. Normal Reference Range = Not Detected CAMPYLOBACTER Not Detected Salmonella Not Detected Shigella sp. Not Detected Shiga Toxin Not Detected Yersinia Not Detected VIBRIO Not Detected Norovirus Not Detected Rotavirus Not Detected Performed By: #### M100.0605, M100.7900, M100.6796, M100.637 #### [facility] [address] [place], [address] Observed: 04/27/2018 Status: F Source: [place] OVA AND PARASITES 5:00 PM [facility] [place] [place] REPOSITORY O + P OVA AND PARASITES EXAM, ROUTINE These results were obtained using wet preparation(s) and trichrome stained smear. This test does not include testing for Crytosporidium parvum, Cyclospora, or Microsporidia. TESTING PERFORMED AT [facility]. ORIGINAL REPORT ON FILE IN LAB CONTAINS ADDITIONAL TEST SITE INFORMATION. Ova/Parasite Exam NO OVA, CYSTS, OR PARASITES FOUND. Performed By: #### M600.5000 #### [facility] [address] [place], [place], [address] ABDOMEN/PELVIS WITH Observed: 04/26/2018 Status: F Source: [place] CONTRAST 5:14 PM [facility] [place] [place] REPOSITORY [facility] Imaging Services [address] [address] Abdomen/Pelvis WITH Contrast MR#: [id number] Acct: [id number] Name: JOEL OLSON Alyssa Rep #: [id number] : 1965 M 52 From: Minnie Rogel MD PCP: Herminio GARCIA,Ravindra Russo Status: REG CLI Study: Abdomen/Pelvis WITH Contrast Date of Exam: 04/26/18 Exam# [id number] Ordering Dr: Ravindra Durham MD STUDY: CT ABDOMEN AND PELVIS WITH CONTRAST REASON FOR EXAM: Male, 52 years old. Right inguinal pain, recent IVC filter RADIATION DOSAGE (If Supplied By Facility): CTDIvol = ( 20.40 ) mGy, DLP = ( 1471.76 ) mGycm TECHNIQUE: Transaxial images were obtained from the lower chest to the upper thighs with oral contrast. 100 ml of Isovue 300 contrast was administered. Sagittal and coronal images were reconstructed. Individualized dose optimization techniques were used for this CT. COMPARISON: May 04, 2013 FINDINGS: There is minimal residual dense opacity in the posterior segment of the left lower lobe. There is minimal fluid in the left pleural margin. The heart is normal in size. The liver is unremarkable. There are a few small calcifications in the lumen of the gallbladder. The spleen is unremarkable. The pancreas is unremarkable. The adrenal glands are unremarkable. The right kidney is unremarkable. There is no dilatation of the collecting system in the right kidney. The left kidney is unremarkable. There is no dilatation of the collecting system in the left kidney. The stomach is unremarkable. The small bowel is unremarkable. There are a few diverticula in the distal colon without adjacent stranding. There is non-visualization of the appendix. There are minimal vascular calcifications. There is a filter in the infrarenal IVC. The retroperitoneum is unremarkable. There is no free fluid in the abdomen. There is wall thickening in the bladder. The prostate is normal in size with calcifications. There are small phleboliths scattered in the lower pelvis. There is minimal stranding in the right inguinal region. There are mild degenerative changes in the visualized spine. CT/Abdomen/Pelvis WITH Contrast IMPRESSION: There is mild stranding in the right inguinal region after catheterization. There are no loculated fluid collections in the right inguinal region. The filter is adequately positioned in the infrarenal IVC. There is wall thickening in the urinary bladder, possible cystitis. There is no hydronephrosis. There is no ascites, free air, inflammation or significant lymphadenopathy. There is resolving consolidation in the left lower lobe. There is a small residual left pleural effusion. There are a few gallstones in the lumen of the gallbladder without surrounding inflammation. Electronically Signed: Minnie Rogel MD at 18:30 EDT Tel Direct: [phone], Service support , CC: Ravindra Durham MD State Pilot: Signed CBC W/DIFF, AUTOMATED Collected: 04/26/2018 Status: F Source: KATHERINE 3:01 PM [facility] [place], [place] REPOSITORY TYPE CODE TESTS RESULT OUT OF RANGE REFERENCE UNITS LAB L100.1000 4.4-11.0 K/mm3 Normal WBC 7.3 LAB L100.1200 4.6-6.2 M/mm3 Low RBC 4.48 LAB L100.1300 13.0-16.5 g/dl Low HGB 11.4 LAB L100.1400 40-54 % Low HCT 37.1 LAB L100.1500 80-94 fL Normal MCV 82.8 LAB L100.1600 27.0-32.0 pg Low MCH 25.4 LAB L100.1700 32-36 g/gl Low MCHC 30.7 LAB L100.1810 11.6-14.6 % High RDW CV 14.7 LAB L100.1820 35.1-43.9 fl High RDW SD 44.5 LAB L100.1900 150-450 K/mm3 Low PLT 125 LAB L100.2000 6.2-12.0 fl Normal MPV 10.2 LAB L100.2100 47-70 % Normal NEUT% 70.0 LAB L100.2200 19-41 % Normal LY% 20.8 LAB L100.2300 0-10 % Normal MONO% 6.6 LAB L100.2400 0-5 % Normal EO% 2.2 LAB L100.2500 0-1 % Normal BASO% 0.3 LAB L100.2550 0.0-0.9 % Normal IM GRAN % 0.100 Result Comment: IG% - Immature Granulocytes (promyelocytes, myelocytes and metamyelocytes) > 1% indicates that a LEFT SHIFT is Present. LAB L100.2620 2.0-7.7 X10 3/uL Normal Absolute Neut 5.1 LAB L100.2720 0.83-4.51 X10 3/ul Normal Absolute Lymph 1.52 Performed By: #### L100.0100 #### [facility] [place], [place], [id number] COMPREHENSIVE METABOLIC Collected: 04/26/2018 Status: F Source: KATHERINE PROFIL 3:01 PM [facility] [place], [place] REPOSITORY TYPE CODE TESTS RESULT OUT OF RANGE REFERENCE UNITS LAB L501.0100 74-106 mg/dL High GLU 210 Result Comment: Glucose result greater than or equal to 200 mg/dL suggests DIABETES MELLITUS per A.D.A. criteria. Please note revised GLUCOSE reference range effective 2017. LAB L501.1000 7-18 mg/dL Normal BUN 14 LAB L501.1100 0.70-1.30 mg/dL Low CREAT,SERUM 0.68 Result Comment: The validity of the calculated GFR AND GFRAA in patients over 70 years has not been determined. Clinical correlation is essential. LAB L501.1110 >60 mL/min Normal EST GFR 130 Result Comment: Non- GFR Calc LAB L501.1115 >60 mL/min Normal EST GFR - AA 157 Result Comment: GFR Calc LAB L501.1300 10-20 RATIO High BUN/CRE 20.5 LAB L501.1500 6.4-8.2 g/dL T Normal PROT 7.7 LAB L501.1800 3.2-5.0 g/dL Normal ALB 3.5 LAB L501.1950 2.2-4.2 g/dL Normal GLOB 4.2 LAB L501.2000 0.9-2.4 RATIO Low A/G 0.8 LAB L501.2200 8.5-10.1 mg/dL CA Normal 8.9 LAB L501.4100 15-37 U/L Normal AST 32 LAB L501.4305 45-117 U/L Normal ALK P 112 LAB L501.4405 16-61 U/L Normal ALT 28 LAB L501.4600 0.20-1.00 mg/dL T Normal BILI 0.70 LAB L501.5300 136-145 mmol/L NA Normal 138 LAB L501.5600 3.5-5.1 mmol/L K Normal 4.1 LAB L501.5900 98-107 mmol/L High CL 109 LAB L501.6100 21.0-32.0 mmol/L Normal CO2 21.0 LAB L501.6200 5-15 Normal GAP 8 Performed By: #### L500.4050 #### [facility] [address] [place], [address] DOWNTIME REPORT Observed: 04/26/2018 Status: F Source: KATHERINE 1:57 PM [facility] Medical Records Department [address] [place] [address] Downtime Report MR#: [id number] Acct: [id number] Name: JOEL MATSON Rep #: [id number] : 1965 52 From: Jesus Laura MD PCP: Herminio GARCIA,Ravindra Chi Status: DIS IN This patient was seen during an EMR downtime April 10, 2018 - April 17, 2018. This patient may have a combination of paper and electronic documentation or all paper documentation. All documentation is viewable within the e-chart portion of [facility] for each patient visit. 12 LEAD ELECTROCARDIOGRAM Observed: 04/24/2018 Status: F Source: KATHERINE 8:48 AM [facility] Cardiovascular Services [address] [place] [address] 12 Lead EKG 04/09/18 1222 MR#: [id number] Acct: [id number] Name: JOEL MATSON Rep #: [id number] : 1965 52 From: Yon Ruiz MD Attending Dr: Emily Livingston MD Status: DIS IN Ordering Dr: Fred Brooks MD Date: 04/09/18 Location: [facility] Sex: M C Admitted: 04/09/18 Test Reason : DIZZINESS Blood Pressure : / mmHG Vent. Rate : 096 BPM Atrial Rate : 096 BPM P-R Int : 130 ms QRS Dur : 080 ms QT Int : 352 ms P-R-T Axes : 053 030 030 degrees QTc Int : 444 ms Normal sinus rhythm Nonspecific T wave abnormality Confirmed by FIORDALIZA GARCIA, YON ([id number]), proposal editor MACIE LAURA ([id number]) on 04/19/2018 6:49:23 PM Referred By: FOSTER Confirmed By:YON RUIZ MD 04/19/18 1849 Date Yon Ruiz MD CC: Emily Livingston MD; Fred Brooks MD; Ravindra Durham MD Signed ELECTROENCEPHALOGRAM Observed: 04/22/2018 Status: F Source: KATHERINE 2:02 PM [facility] [place], [place] REPOSITORY [facility] Pulmonary Services/Neurology [address] [place] [address] MR#: [id number] Acct: [id number] Name: JOEL MATSON Rep #: [id number] : 1965 52 From: Gabino Abbott MD Referring Dr: Bobo Aragon MD Status: REG CLI Ordering Dr: Date: Location: [facility] Sex: M C - Electroencephalogram Of service 04/21/18 This is an 18 channel electroencephalogram performed utilizing the international 1020 electrode placement protocol as well as EKG reference leads, photic stimulation and hyperventilation. The patient experienced a loss of conscious episode but apparently has had issues with blood loss recently as well. Background activity is 11 Hz symmetrically in the posterior leads which attenuates with eye opening. Hyperventilation is performed for 5 minutes with good effort with no lateralizing or epileptiform changes. The post hyperventilatory phase is unremarkable. The patient remained awake throughout the recording with no lateralizing or epileptiform changes. EKG is normal sinus rhythm throughout the recording and photic stimulation generates a normal symmetric driving response in the posterior leads. Impression: Normal awake electroencephalogram 04/22/18 1402 <Electronically signed by Gabino Abbott MD> Date Gabino Abbott MD CC: Bobo Aragon MD; Gabino Abbott MD; Ravindra Durham MD Date Dictated: 04/22/18 1356 Date Transcribed: 04/22/18 1356 State Pilot: NF Signed CBC W/DIFF, AUTOMATED Collected: 04/20/2018 Status: F Source: KATHERINE 4:42 PM [facility] [place], [place] REPOSITORY TYPE CODE TESTS RESULT OUT OF RANGE REFERENCE UNITS LAB L100.1000 4.4-11.0 K/mm3 Normal WBC 6.2 LAB L100.1200 4.6-6.2 M/mm3 Low RBC 4.07 LAB L100.1300 13.0-16.5 g/dl Low HGB 10.6 LAB L100.1400 40-54 % Low HCT 33.8 LAB L100.1500 80-94 fL Normal MCV 83.0 LAB L100.1600 27.0-32.0 pg Low MCH 26.0 LAB L100.1700 32-36 g/gl Low MCHC 31.4 LAB L100.1810 11.6-14.6 % Normal RDW CV 14.6 LAB L100.1820 35.1-43.9 fl Normal RDW SD 43.9 LAB L100.1900 150-450 K/mm3 Normal PLT 156 LAB L100.2000 6.2-12.0 fl Normal MPV 10.3 LAB L100.2100 47-70 % Normal NEUT% 58.0 LAB L100.2200 19-41 % Normal LY% 31.5 LAB L100.2300 0-10 % Normal MONO% 8.0 LAB L100.2400 0-5 % Normal EO% 2.2 LAB L100.2500 0-1 % Normal BASO% 0.3 LAB L100.2550 0.0-0.9 % Normal IM GRAN % 0.000 Result Comment: IG% - Immature Granulocytes (promyelocytes, myelocytes and metamyelocytes) > 1% indicates that a LEFT SHIFT is Present. LAB L100.2620 2.0-7.7 X10 3/uL Normal Absolute Neut 3.6 LAB L100.2720 0.83-4.51 X10 3/ul Normal Absolute Lymph 1.96 Performed By: #### L100.0100 #### [facility] [place], [address] COMPREHENSIVE METABOLIC Collected: 04/20/2018 Status: F Source: [facility] 4:42 PM [facility] [place], [place] REPOSITORY TYPE CODE TESTS RESULT OUT OF RANGE REFERENCE UNITS LAB L501.0100 74-106 mg/dL High GLU 277 Result Comment: Glucose result greater than or equal to 200 mg/dL suggests DIABETES MELLITUS per A.D.A. criteria. Please note revised GLUCOSE reference range effective 2017. LAB L501.1000 7-18 mg/dL High BUN 21 LAB L501.1100 0.70-1.30 mg/dL Normal CREAT,SERUM 0.93 Result Comment: The validity of the calculated GFR AND GFRAA in patients over 70 years has not been determined. Clinical correlation is essential. LAB L501.1110 >60 mL/min Normal EST GFR 91 Result Comment: Non- GFR Calc LAB L501.1115 >60 mL/min Normal EST GFR - AA 110 Result Comment: GFR Calc LAB L501.1300 10-20 RATIO High BUN/CRE 22.7 LAB L501.1500 6.4-8.2 g/dL T Normal PROT 7.4 LAB L501.1800 3.2-5.0 g/dL Normal ALB 3.3 LAB L501.1950 2.2-4.2 g/dL Normal GLOB 4.1 LAB L501.2000 0.9-2.4 RATIO Low A/G 0.8 LAB L501.2200 8.5-10.1 mg/dL CA Normal 8.9 LAB L501.4100 15-37 U/L Normal AST 27 LAB L501.4305 45-117 U/L Normal ALK P 116 LAB L501.4405 16-61 U/L Normal ALT 30 LAB L501.4600 0.20-1.00 mg/dL T Normal BILI 0.70 LAB L501.5300 136-145 mmol/L Low NA 135 LAB L501.5600 3.5-5.1 mmol/L K Normal 4.2 LAB L501.5900 98-107 mmol/L CL Normal 99 LAB L501.6100 21.0-32.0 mmol/L Normal CO2 25.0 LAB L501.6200 5-15 Normal GAP 11 Performed By: #### L500.4050, L501.9520, L501.9910 #### [facility] [address] [place], [place], [address] THYROID STIM HORMONE Collected: 04/20/2018 Status: F Source: [place] (TSH) 4:42 PM [facility] [place], [place] REPOSITORY TYPE CODE TESTS RESULT OUT OF RANGE REFERENCE UNITS LAB L501.9520 0.358-3.74 uIU/mL Normal TSH 0.92 Performed By: #### L500.4050, L501.9520, L501.9910 #### [facility] [address] [place], [place], [address] PSA,TOTAL - ANNUAL Collected: 04/20/2018 Status: F Source: KATHERINE SCREEN 4:42 PM [facility] [place], [place] REPOSITORY TYPE CODE TESTS RESULT OUT OF RANGE REFERENCE UNITS LAB L501.9910 0.00-4.00 ng/mL Normal PSA,TOT < 0.01 SCREEN Result Comment: This test was performed using the TPSA assay method for the [employer] chemistry system. Values obtained with different assay methods cannot be used interchangably. When changing PSA assays in the course of monitoring a patient, additional sequential testing should be carried out to confirm baseline values. Performed By: #### L500.4050, L501.9520, L501.9910 #### [facility] [address] [place], [address] TESTOSTERONE, SERUM TOTAL Collected: 04/20/2018 Status: F Source: KATHERINE 4:42 PM [facility] [place] [place] REPOSITORY TYPE CODE TESTS RESULT OUT OF REFERENCE UNITS RANGE LAB L509.3000 ng/dL Testosterone Normal 7.85 Result Comment: NORMAL REFERENCE RANGES MALE AGE <50 123.06 - 813.86 ng/dL MALE AGE >50 89.98 - 780.10 ng/dL FEMALE PREMENOPAUSE AGE 21 - 60 9.01 - 47.94 ng/dL FEMALE POSTMENOPAUSE AGE 45 - 89 <7.00 - 45.62 ng/dL REFERENCE RANGE AND METHODOLOGY CHANGED 10/26/2017 Performed By: #### L509.3000 #### [facility] [address] [place], [address] MRA HEAD ONLY WITHOUT Observed: 04/14/2018 Status: F Source: KATHERINE CONTRAST 6:53 AM [facility] [place], [place] REPOSITORY [facility] Imaging Services [address] [place] [address] MRA Head ONLY without Contrast MR#: [id number] Acct: [id number] Name: JOEL MATSON Alyssa Rep #: [id number] : 1965 M 52 From: Jordin Morgan MD PCP: Herminio GARCIA,Ravindra Russo Status: DIS IN Study: MRA Head ONLY without Contrast Date of Exam: 04/10/18 Exam# [id number] Ordering Dr: Emily Livingston MD STUDY: MRA OF THE HEAD WITHOUT CONTRAST REASON FOR EXAM: Male, 52 years old. Stroke TECHNIQUE: 3-D enru-se-mfvuyu (TOF) imaging was performed with MIPs. The study was performed unenhanced. COMPARISON: None. FINDINGS: Normal bilateral petrous carotid arteries. Normal right cavernous carotid artery with a normal supraclinoid bifurcation. Normal left cavernous carotid artery with a normal supraclinoid bifurcation. Normal right A1 segments of the anterior cerebral artery. Normal left A1 segments of the anterior cerebral artery. Anterior communicating artery not visualized consistent with developmental variant. Normal bilateral A2 segments of the anterior cerebral arteries. Normal right M1 and M2 segments of the middle cerebral arteries, with a normal M1 bifurcation. Normal left M1 and M2 segments of the middle cerebral arteries, with a normal M1 bifurcation. Normal right posterior communicating artery (PCOM). Normal left posterior communicating artery (PCOM). Normal bilateral vertebral arteries. Normal basilar artery with a normal basilar bifurcation. The visualized bilateral superior cerebellar (SCA) arteries are normal. Normal bilateral P1, P2 and visualized P3 segments of the posterior cerebral arteries. There is no demonstrated aneurysm of the [place]. There is no major vessel occlusion or hemodynamically significant stenosis. There is no demonstrated abnormality of the visualized brain. MRI/MRA Head ONLY without Contrast IMPRESSION: Normal MRA of the head Electronically Signed: Jordin Morgan MD at 20:17 EDT , Service support , CC: Emily Livingston MD; Ravindra Durham MD State Pilot: Signed MRA NECK WITH AND W/O Observed: 04/14/2018 Status: F Source: [place] CONTRAST 6:53 AM [facility] [place] [place] REPOSITORY [facility] Imaging Services [address] [place] [address] MRA Neck WITH and W/O Contrast MR#: [id number] Acct: [id number] Name: DANOJOEL D Rep #: [id number] : 1965 M 52 From: Jordin Morgan MD PCP: Herminio GARCIA,Ravindra Russo Status: DIS IN Study: MRA Neck WITH and W/O Contrast Date of Exam: 04/10/18 Exam# [id number] Ordering Dr: Emily Livingston MD STUDY: MRA NECK WITH AND WITHOUT CONTRAST REASON FOR EXAM: Male, 52 years old. Stroke TECHNIQUE: 3-D oowb-bi-dcypif (TOF) imaging was performed in an 1.5 T MRI scanner. 10 ml of Gadavist was administered for the contrast enhanced images. COMPARISON: None. FINDINGS: RIGHT CAROTID ARTERIES: Normal right common carotid artery (CCA). Normal right common carotid bulb. Normal origin of the right internal carotid (ICA) artery without a hemodynamically significant stenosis. Normal visualized cervical portion of the right internal carotid artery. Normal origin of the right external carotid artery (ECA). LEFT CAROTID ARTERIES: Normal left common carotid artery (CCA). Normal left common carotid bulb. Normal origin of the left internal carotid (ICA) artery without a hemodynamically significant stenosis. Normal visualized cervical portion of the left internal carotid artery. Normal origin of the left external carotid artery (ECA). VERTEBRAL ARTERIES: Normal antegrade flow within the bilateral vertebral artery without a hemodynamically significant stenosis. MRI/MRA Neck WITH and W/O Contrast IMPRESSION: Normal bilateral cervical carotid and vertebral arteries. Electronically Signed: Jordin Morgan MD at 20:33 EDT , Service support , CC: Emily Livingston MD; Ravindra Durham MD State Pilot: Signed BRAIN WITHOUT Observed: 04/14/2018 Status: F Source: KATHERINE CONTRAST 6:53 AM [facility] [place] [place] REPOSITORY [facility] Imaging Services [address] [place] [address] Brain without Contrast MR#: [id number] Acct: [id number] Name: JOEL MATSON Alyssa Rep #: [id number] : 1965 M 52 From: Jordin Morgan MD PCP: Ravindra Durham MD, Chi Status: DIS IN Study: Brain without Contrast Date of Exam: 04/10/18 Exam# [id number] Ordering Dr: Emily Livingston MD STUDY: MRI BRAIN WITH AND WITHOUT CONTRAST REASON FOR EXAM: Male, 52 years old. Stroke, blurred vision right eye TECHNIQUE: Standardized multiplanar fat and water weighted pulse sequences were obtained. 10 ml of Gadavist contrast material was administered intravenously for the contrast portion of the examination. COMPARISON: CT of the brain on April 09, 2018 FINDINGS: Normal size of the ventricles and extra-axial spaces for the patient's age. Mild periventricular white matter ischemic changes without mass effect or restricted diffusion.. Normal bilateral basal ganglia. Normal thalami. There is no extra-axial fluid accumulation. Normal flow voids within the major intracranial circulation suggesting patency by spin echo criteria. Normal venous enhancement. There is no enhancing intra-axial or extra-axial abnormality. Normal sella turcica, pituitary gland, infundibular stalk, optic chiasm and hypothalamus. Normal tectal plate and pineal gland. Normal midbrain, francesco and medulla. Normal cerebellum. Normal basal cisterns. Normal bilateral temporal bones. Normal bilateral internal auditory canals. No demonstrated orbital abnormality, within the constraints of a routine brain study. Normal visualized paranasal sinuses. Normal calvarium and skull base. Normal visualized soft tissue structures. Normal visualized upper cervical spine. MRI/Brain without Contrast IMPRESSION: Minor periventricular white matter ischemic changes without evidence for acute infarct.. Electronically Signed: Jordin Morgan MD at 21:04 EDT , Service support , CC: Emily Livingston MD; Ravindra Durham MD State Pilot: Signed BEDSIDE GLUCOSE Collected: 04/11/2018 Status: F Source: KATHERINE 11:12 AM [facility] [place], [place] REPOSITORY Order Comment: RESULT(S) PREVIOUSLY REPORTED ON MANUAL REQUISITION DURING DOWNTIME. TYPE CODE TESTS RESULT OUT OF REFERENCE UNITS RANGE LAB L501.080 70-110 mg/dL High BEDSIDE GLU 159 Result Comment: MANAGEMENT OF PATIENT CARE PER NURSING PROTOCOL Performed By: #### L501.080 #### [facility] Point of Care [address] [place] [address] BEDSIDE GLUCOSE Collected: 04/11/2018 Status: F Source: KATHERINE 6:40 AM [facility] [place] [place] REPOSITORY Order Comment: RESULT(S) PREVIOUSLY REPORTED ON MANUAL REQUISITION DURING DOWNTIME. TYPE CODE TESTS RESULT OUT OF REFERENCE UNITS RANGE LAB L501.080 70-110 mg/dL High BEDSIDE GLU 197 Result Comment: MANAGEMENT OF PATIENT CARE PER NURSING PROTOCOL Performed By: #### L501.080 #### [facility] Point of Care [address] [place] [address] BEDSIDE GLUCOSE Collected: 04/10/2018 Status: F Source: KATHERINE 10:00 PM [facility] [place] [place] REPOSITORY Order Comment: RESULT(S) PREVIOUSLY REPORTED ON MANUAL REQUISITION DURING DOWNTIME. TYPE CODE TESTS RESULT OUT OF REFERENCE UNITS RANGE LAB L501.080 70-110 mg/dL High BEDSIDE GLU 192 Result Comment: MANAGEMENT OF PATIENT CARE PER NURSING PROTOCOL Performed By: #### L501.080 #### [facility] Point of Care [address] [place] [address] BEDSIDE GLUCOSE Collected: 04/10/2018 Status: F Source: KATHERINE 4:30 PM [facility] [place] [place] REPOSITORY Order Comment: RESULT(S) PREVIOUSLY REPORTED ON MANUAL REQUISITION DURING DOWNTIME. TYPE CODE TESTS RESULT OUT OF REFERENCE UNITS RANGE LAB L501.080 70-110 mg/dL High BEDSIDE GLU 167 Result Comment: MANAGEMENT OF PATIENT CARE PER NURSING PROTOCOL Performed By: #### L501.080 #### [facility] Point of [facility] [address] [place] [address] BEDSIDE GLUCOSE Collected: 04/10/2018 Status: F Source: KATHERINE 11:25 AM [facility] [place] [place] REPOSITORY Order Comment: RESULT(S) PREVIOUSLY REPORTED ON MANUAL REQUISITION DURING DOWNTIME. TYPE CODE TESTS RESULT OUT OF REFERENCE UNITS RANGE LAB L501.080 70-110 mg/dL High BEDSIDE GLU 231 Result Comment: MANAGEMENT OF PATIENT CARE PER NURSING PROTOCOL Performed By: #### L501.080 #### [facility] [address] [place] [address] BASIC METABOLIC Collected: 04/10/2018 Status: F Source: KATHERINE PROFILE (BMP) 5:55 AM [facility] [place] [place] REPOSITORY Order Comment: RESULT(S) PREVIOUSLY REPORTED ON MANUAL REQUISITION DURING DOWNTIME. TYPE CODE TESTS RESULT OUT OF RANGE REFERENCE UNITS LAB L501.0100 74-106 mg/dL High GLU 143 Result Comment: Fasting Glucose result greater than or equal to 126 mg/dL suggests DIABETES MELLITUS per A.D.A. criteria. Please note revised GLUCOSE reference range effective 2017. LAB L501.1000 7-18 mg/dL Normal BUN 16 LAB L501.1100 0.70-1.30 mg/dL Low CREAT,SERUM 0.61 Result Comment: The validity of the calculated GFR AND GFRAA in patients over 70 years has not been determined. Clinical correlation is essential. LAB L501.1110 >60 mL/min EST GFR Normal 148 LAB L501.1115 >60 mL/min EST GFR Normal - AA 179 LAB L501.1255 ml/min Normal Estimated CRCL 138.61 LAB L501.1300 10-20 RATIO High BUN/CRE 26.2 LAB L501.2200 8.5-10.1 mg/dL CA Normal 8.8 LAB L501.5300 136-145 mmol/L NA Normal 141 LAB L501.5600 3.5-5.1 mmol/L K Normal 4.0 LAB L501.5900 98-107 mmol/L CL Normal 106 LAB L501.6100 21.0-32.0 mmol/L CO2 Normal 23.0 LAB L501.6200 5-15 GAP Normal 12 Performed By: #### L500.2500 #### [facility] [address] [place], [address] Observed: 04/10/2018 Status: F Source: KATHERINE CULTURE, WOUND 2:00 AM [facility] [place] [place] REPOSITORY RESULT(S) PREVIOUSLY REPORTED ON MANUAL REQUISITION DURING DOWNTIME. Comments: SILVA WOUND LOWER Gram Stain Gram Stain Rare Red Blood Cells Rare White Blood Cells Rare Gram negative rods Wound Culture ORGANISM 1: Pseudomonas aeroginosa Amount Growth 1+ Pseudomonas aeroginosa: REACTION Aztreonam $$$ 25 S Pseudomonas aeroginosa: REACTION Amikacin $ 8 S Cefepime $ >=64 R Ceftazidime *NF >=64 R Ciprofloxacin $ 1 S Gentamicin $ <=1 S Imipenem *NF 2 S Levofloxacin $ >=8 R Meropenem $ 1 S Tobramycin $ <=1 S (NF) indicates non-formulary drug at [facility]. Approval by Infectious Disease Specialist required before non-formulary drugs may be ordered and/or dispensed. Performed By: #### M100.1400 #### [facility] [address] [place], [address] Observed: 04/10/2018 Status: F Source: [place] CULTURE, WOUND 2:00 AM [facility] [place] [place] REPOSITORY Comments: UPPER SILVA WOUND Gram Stain Gram Stain Rare White Blood Cells Rare Gram negative rods Wound Culture RESULT(S) PREVIOUSLY REPORTED ON MANUAL REQUISITION DURING DOWNTIME. ORGANISM 1: Pseudomonas aeroginosa Amount Growth 2+ ORGANISM 2: Proteus mirabilis Amount Growth Rare Pseudomonas aeroginosa: REACTION Aztreonam $$$ 25 S Pseudomonas aeroginosa: REACTION Amikacin $ 4 S Cefepime $ >=64 R Ceftazidime *NF >=64 R Ciprofloxacin $ 1 S Gentamicin $ <=1 S Imipenem *NF 2 S Levofloxacin $ >=8 R Meropenem $ 1 S Tobramycin $ <=1 S (NF) indicates non-formulary drug at [facility]. Approval by Infectious Disease Specialist required before non-formulary drugs may be ordered and/or dispensed. Proteus mirabilis: REACTION Amoxacillin/Clavulanic Acid $ 4 S Ampicillin $ 4 S Ampicillin/Sulbactam $ <=2 S Cefazolin $ <=4 S Cefepime $ <=1 S Ceftriaxone $ <=1 S Ciprofloxacin $ <=0.5 S Ertapenim $$$ 1 S Gentamicin $ <=1 S Levofloxacin $ <=0.12 S Piperacillin/Tazobactam $$ <=4 S Tobramycin $ <=1 S Trimethoprim/Sulfametho $ <=20 S (NF) indicates non-formulary drug at [facility]. Approval by Infectious Disease Specialist required before non-formulary drugs may be ordered and/or dispensed. Performed By: #### M100.1400 #### [facility] [address] [place], [place], [address] Observed: 04/10/2018 Status: F Source: [place]ATH[place]INE CULTURE, WOUND 2:00 AM [facility] [place] [place] REPOSITORY Gram Stain Gram Stain Rare White Blood Cells Rare Gram negative rods Wound Culture RESULT(S) PREVIOUSLY REPORTED ON MANUAL REQUISITION DURING DOWNTIME. ORGANISM 1: Pseudomonas aeroginosa Amount Growth 1+ Pseudomonas aeroginosa: REACTION Aztreonam $$$ 25 S Pseudomonas aeroginosa: REACTION Amikacin $ 4 S Cefepime $ >=64 R Ceftazidime *NF >=64 R Ciprofloxacin $ 1 S Gentamicin $ <=1 S Imipenem *NF 2 S Levofloxacin $ >=8 R Meropenem $ 2 S Tobramycin $ <=1 S (NF) indicates non-formulary drug at [facility]. Approval by Infectious Disease Specialist required before non-formulary drugs may be ordered and/or dispensed. Performed By: #### M100.1400 #### [facility] [address] [facility], [address] CBC-COMPLETE BLOOD CNT Collected: 04/10/2018 Status: F Source: KATHERINE NO DIFF 12:00 AM [facility] [place], [place] REPOSITORY Order Comment: RESULT(S) PREVIOUSLY REPORTED ON MANUAL REQUISITION DURING DOWNTIME. TYPE CODE TESTS RESULT OUT OF RANGE REFERENCE UNITS LAB L100.1000 4.4-11.0 K/mm3 Normal WBC 4.6 LAB L100.1200 4.6-6.2 M/mm3 Low RBC 3.67 LAB L100.1300 13.0-16.5 g/dl Low HGB 9.7 LAB L100.1400 40-54 % Low HCT 32.0 LAB L100.1500 80-94 fL Normal MCV 87.2 LAB L100.1600 27.0-32.0 pg Low MCH 26.4 LAB L100.1700 32-36 g/gl Low MCHC 30.3 LAB L100.1810 11.6-14.6 % High RDW CV 15.4 LAB L100.1820 35.1-43.9 fl High RDW SD 48.0 LAB L100.1900 150-450 K/mm3 Low PLT 139 LAB L100.2000 6.2-12.0 fl Normal MPV 10.0 Performed By: #### L100.0500 #### [facility] [address], [address] BEDSIDE GLUCOSE Collected: 04/09/2018 Status: F Source: KATHERINE 10:16 PM [facility] [place], [place] REPOSITORY TYPE CODE TESTS RESULT OUT OF REFERENCE UNITS RANGE LAB L501.080 70-110 mg/dL High BEDSIDE GLU 267 Result Comment: MANAGEMENT OF PATIENT CARE PER NURSING PROTOCOL Performed By: #### L501.080 #### [facility] Point of Care [address] [place] [address] LACTIC ACID Collected: 04/09/2018 Status: F Source: KATHERINE 9:00 PM [facility] [place] [place] REPOSITORY TYPE CODE TESTS RESULT OUT OF REFERENCE UNITS RANGE LAB L503.6005 0.4-2.0 mmol/L High LACTIC ACID 2.2 Result Comment: Critical Result(s) Called at: 21:42:32 04/09/2018 by: Chiqui Sutton Performed By: #### L503.6005 #### [facility] [address] [place], [address] URINALYSIS, ROUTINE Collected: 04/09/2018 Status: F Source: KATHERINE (DIPSTICK) 5:45 PM [facility] [place] [place] REPOSITORY Order Comment: How was Urine Obtained? MIRROR FABRICATION SUPERVISOR TO SPECIFY TYPE CODE TESTS RESULT OUT OF RANGE REFERENCE UNITS LAB L400.3000 Yellow COLOR Normal Yellow LAB L400.3050 Clear Normal CLARITY Clear LAB L400.3200 Normal mg/dl High GLUCOSE, UR 1000 LAB L400.3300 Negative mg/dL Normal BILIRUBIN URINE Negative LAB L400.3400 Negative mg/dl Normal KETONE UR Negative LAB L400.3465 1.002-1.030 Normal SP.GR. DIPSTX 1.010 LAB L400.3550 5.0 - 8.0 pH UR Normal 6.0 LAB L400.3600 Negative mg/dl PROT Normal DIPSTX Negative LAB L400.3700 Normal mg/dl Normal UROBILI Normal LAB L400.3750 Negative Normal NITRITE UR Negative LAB L400.3780 Negative /ul Normal OCCULT BLOOD-UR Negative LAB L400.3800 Negative /ul LEUK Normal ESTERASE Negative Performed By: #### L400.2010 #### [facility] [place], [address] Observed: 04/09/2018 Status: F Source: [place] CULTURE, URINE 5:45 PM [facility] [place] [place] REPOSITORY Urine Culture Below infection level. RESULT(S) PREVIOUSLY REPORTED ON MANUAL REQUISITION DURING DOWNTIME. ORGANISM 1: Mixed Gram Pos AND Gram Neg Org [place] Count <1000 Performed By: #### M100.0650 #### [facility] [address] [place] [address], [address] LACTIC ACID Collected: 04/09/2018 Status: F Source: [place] 4:43 PM [facility] [place] [place] REPOSITORY Order Comment: Yes/No query for Sepsis Lactate Rule Y TYPE CODE TESTS RESULT OUT OF REFERENCE UNITS RANGE LAB L503.6005 0.4-2.0 mmol/L High LACTIC ACID 3.5 Result Comment: Critical Result(s) Called at: 17:23:59 04/09/2018 by: Chiqui Barfield Performed By: #### L503.6005 #### [facility] [address] [place] [address], [address] EMERGENCY DEPARTMENT Observed: 04/09/2018 Status: F Source: [place] SUMMARY 4:34 PM [facility] [place] [place] REPOSITORY [facility] Medical Records Department [address] [place] [id number] Emergency Department Summary 04/09/18 1451 MR#: [id number] Acct: [id number] Name: JOEL MATSON Rep #: [id number] : 1965 52 From: Fred Brooks MD PCP: Herminio GARCIA,Ravindra Russo Status: ADM IN - ER Visit Summary Date of Service: 04/09/18 Chief Complaint: Syncope History of Present Illness: The patient is a [address] Durham. He has a complicated recent medical history. He was admitted [facility] on March 24. He was discharged 5 days ago. While there he received 4 units of packed red blood cells. He had colonoscopy and endoscopy and was not informed of the source of blood loss. He had a chest tube in the left lung for an empyema. He reports that he is supposed follow-up to have stitches removed from this in a few days. He is still on an antibiotic which he takes twice daily. He does not know the name of this. His last dose was to be today. He also had a PE. Due to the severe anemia and no source of blood loss he had an IVC filter placed rather than being anticoagulated. Patient has gone out very little since then. He reports that he had his biggest venture out today. States that he went to [employer] As he was walking and he reports that he had tunnel vision. He got progressively more lightheaded, diaphoretic, and short of breath. He did not have chest pain during this. When he got to the front of the store he had what he reports was near syncope. However, bystanders report that he was in and out of consciousness. He reports that he did not fall. However, he was incontinent of stool. Patient denies any fever or chills. He reports that he has very little cough and it is productive of clear sputum. He reports that he was short of breath during this episode today, but has not been short of breath otherwise. He reports that for the past 3 or 4 days he has been having diarrhea 2-3 times per day. No abdominal pain. No nausea or vomiting. No other complaints. Physical Examination: Vitals: Stable. Afebrile. General: Well-nourished and well-developed. Head: Normocephalic atraumatic. Neck: Supple, no lymphadenopathy. No JVD. Nontender. Cardiovascular: Regular rate and rhythm. No murmurs. Respiratory: No respiratory distress. Clear to auscultation bilaterally. Abdominal: Soft, nontender, nondistended, normal bowel sounds. No guarding, rebound, or peritoneal signs. Back: Nontender. Extremities: Nontender, no edema. Skin: Normal color, no rash. Neurologic: Alert and oriented 3. Cranial nerves II through XII are intact. Normal strength and sensation. Psych: Normal affect. Test Results: EKG is sinus at 96 with no acute changes. There is no significant change from last month. Initial troponin is negative. Lactic acid is 4.6. Chem-7 is marked for sodium 131, CO2 of 17, glucose of 414. CBC is marked for an H AND H 11.2 and 36.7. Chest x-ray shows nearly complete clearing of the left lung base airspace disease and pleural effusion. No acute disease. Emergency Department Course and Treatment: Patient was given a liter bolus of normal saline. His systolic blood pressure increased from the high 90s to the 130s. He is resting comfortably without complaint. Abdominal Treatment Plan: Given the recent comp gated medical history and the syncope today I feel that the patient should be admitted to the hospital for evaluation and observation. He was discussed with Dr. Henderson. He will be admitted to the PCU. Disposition: Admitted in improved condition. Impression: 1. Syncope. 2. Lactic acidosis. 3. Hyperglycemia. 4. History of vyc-ecteyzp-dhkojdczr diabetes mellitus. This note was generated with [employer] dictation software. It may contain incorrect words, spelling, and punctuation that were not noted in review of the chart prior to signing ED Disposition - Plan for ED Patient: Chief Complaint: Syncope Referrals: Ravindra Durham Chi, MD [Primary Care Provider] - What to do if you have Problems For any increased pain, shortness of breath, bleeding, nausea or vomiting, chest pain, or any unexpected problems, contact your Primary Care Provider. Call [facility] ([phone]) or report to the closest Emergency Room. Call 911 if necessary. 04/09/18 9064 <Electronically signed by Fred Brooks MD> Date Fred Brooks MD Cosigner Signature (If Indicated): Date CC: Ravindra Durham MD HISTORY AND PHYSICAL Observed: 04/09/2018 Status: F Source: [place] EXAM 4:23 PM [facility] [place] [place] REPOSITORY [facility] Medical Records Department [address] [place] [address] History and Physical 04/09/18 1510 MR#: [id number] Acct: [id number] Name: JOEL MATSON Rep #: [id number] : 1965 52 From: Pedro HIGH PCP: Herminio GARCIA,Ravindra Russo Status: ADM IN [id number] <Pedro Singh - Last Filed: 04/09/18 15:10> Problem List (1) Syncope Status: Acute (2) Lactic acidosis Status: Acute (3) Diabetes Status: Chronic Qualifiers: Diabetes mellitus type: type 2 (4) Pulmonary embolism Status: Chronic (5) HTN (hypertension) Status: Chronic (6) Gastric ulcer Status: Acute (7) Testicular cancer Status: Chronic History of Present Illness Date of Admission: 04/09/18 Chief Complaint: syncope The patient is a 52 year old M with a medical hx of htn, dmt2, PE s/p IVC filter 2/2 GI bleeding suspected 2/2 gastric ulcers, hx Testicular CA s/p BL orchiectomy who presented to the ER with a syncopal episode today. He was discharged from [facility] 5 days ago where he was admitted for anemia 2/2 GI bleeding, PEs, and pleural effusions s/p chest tube placement 2/2 pna/empyema. While there he had upper and lower endoscopies with ulcers and polyps respectively, chest tube for empyema 2/2 pna, IV abx currently finishing PO, and IVC filter placement as he had PE but could not be anticoagulated 2/2 bleeding ulcers and anemia - did receive 4 units PRBC. Chest tube was DCd, he was converted to PO abx and discharged home. He has been weak since admission. Today he was at [employer] with his ambulating with a cart and became dizzy, LH, right sided blurred vision, tunnel vision and felt that he passed out while hanging onto the cart while he was ambulating. He does not think he fell to the floor, he was able to hang onto the cart and not fall. He became very pale and lost control of his bowels. He was brought to the ED by squad. He has residual right sided blurry vision. He denies headache, numbness/tingling/diplopia/focal weakness/slurred speech/ataxia. He denies hx of seizures. [] Past Medical History Past Medical History (Chronic Problems): Chronic Problems Diabetes (Chronic) Pulmonary embolism (Chronic) HTN (hypertension) (Chronic) Testicular cancer (Chronic) Allergies No Known Allergies Allergy (Verified 04/09/18 12:18) Home Medications: Ambulatory Orders Medication Instructions Recorded Empagliflozin [Jardiance] 25 mg PO DAILY 03/24/18 Insulin Degludec/Liraglutide 50 units SQ DAILY 03/24/18 [Xultophy 100 Unit-3.6MG/ml Pen] Surgical History: - - IVC filter, chest tube Psychiatric History: No pertinent psych hx Lives: Spouse/ Significant Other Smoking Status: Former smoker Tobacco Use: Chew Alcohol: None Drugs: None - *Family History Maternal History Items: No pertinent history Paternal History Items: No pertinent history Review of Systems Constitutional: Reports: Weakness. Denies: Chills, Fever, Weight Change Eyes: Reports: Blurred vision, Vision Change HEENT: Reports: Visual Changes. Denies: Head Aches, Sinus Congestion, Sinus Drainage Cardiovascular: Denies: Chest Pain, Palpitations Respiratory: Denies: Cough, Shortness of breath at rest, Sputum production Gastrointestinal: Denies: Abdominal Pain, Nausea, Vomiting Genitourinary: Denies: Dysuria Musculoskeletal: Denies: Joint Pain, Joint Tenderness Skin: Denies: Rash, Wounds Neurological: Reports: Blurred vision, - - syncope. Denies: Focal weakness, Headaches, Numbness, Tingling Psychiatric: Denies: Anxiety, Depression, Homicidal Ideations, Suicidal Ideations Hematologic/ Lymphatic: Denies: Easy Bruising, Easy Bleeding VTE Information - Inpt Only VTE Present on Admission: No VTE Mechan Device Prophylaxis: SCD's VTE Pharm Prophylaxis ordered?: No Reason prophylaxis not ordered:: Medical Contraindication Patient Problems: Active and Suspected Problems Syncope (Acute) Lactic acidosis (Acute) Gastric ulcer (Acute) - Physical Exam General: Alert, Oriented x3, Cooperative HEENT: Atraumatic, PERRLA, EOMI, Normocephalic, - Oral: - - poor dentition Neck: Supple, No JVD, Negative Carotid Bruits Lungs: Clear to auscultation, Normal air movement Cardiovascular: Regular rate, No murmurs Abdomen: Bowel Sounds Present, Soft, Non Tender Extremities: No edema, Capillary Refill Less than 3 Seconds Skin: No rashes, No breakdown Musculoskeletal: No Tenderness to Palpation of Joints or Extremities Neurological: Cranial nerves II-XII grossly intact Psych/Mental Status: Normal Affect, Appropriate, Alert and oriented to time, place, person, mood and affect Vital Signs Temp Pulse Resp BP Pulse Ox 97.8 F 82 18 134/70 H 98 04/09/18 12:13 04/09/18 14:46 04/09/18 14:46 04/09/18 14:46 04/09/18 14:46 Oxygen Delivery Method Room Air Weight: 110.2 kg Body Mass Index (BMI) 36.9 Laboratory Tests Past 24 Hrs WBC 6.6 RBC 4.31 L Hgb 11.2 L Hct 36.7 L POC Glucose POC Glucose 401 H Assessment/Plan All Active Problems Syncope (Acute) Lactic acidosis (Acute) Gastric ulcer (Acute) 1. Syncopal episode - while ambulating, LOC without fall to floor or head trauma, with residual blurred vision right eye, loss of bowel control. Recent hospital stay and discharge with PE/GI bleed/empyema 2/2 pna/ ICU stay / blood transfusions. Will obtain CT brain, consult neurology, obtain EEG, check orthos, hydrate with IV fluids. Consider MRI must find out if this is compatible with IVC filter. Obtain records from [facility]. Trop neg. -negative stress test <1 month ago -echo <1 month ago with EF 70%, no diastolic dysfxn. -denies hx seizures. 2. Lactic acidosis unclear etiology - hydrate with IV fluids. Obtain UA. 3. DMt2 with hyperglycemia - pt is not sure what he is now on after last hospital stay, obtain accurate home meds/dc med rec. Add SSI. 4. Hyponatremia - suspect pseudo 2/2 hyperglycemia 5. PEs - s/p IVC filter, will need to determine if this is compatible with MRI. No OAC 2/2 blood loss anemia GI bleed 6. Recent pna/empyema/chest tube - no respiratory complaints. Lungs clear. He has last dose of abx tonight. 7. Recent Blood loss anemia s/p 4 units PRBC presumed GI bleed 2/2 ulcers - PPI. Avoid thinners. Trend Hgb. No acute bleeds, no recent BRBPR or black stools. 8. Deconditioned from hospitalization - PTOT 9. HTN - home meds 10. HLD - statin DVT ppx: SCDs only. DC planning: PTOT This patient was seen by Pedro Singh PA-C under the supervision of Doctor Miki. <Miki,Emily - Last Filed: 04/09/18 16:23> History of Present Illness The patient is a 52 year old M [] Past Medical History Allergies No Known Allergies Allergy (Verified 04/09/18 12:18) - Physical Exam Vital Signs Temp Pulse Resp BP Pulse Ox 97.8 F 82 18 134/70 H 98 04/09/18 12:13 04/09/18 14:46 04/09/18 14:46 04/09/18 14:46 04/09/18 14:46 Weight: 108.2 kg Body Mass Index (BMI) 36.2 Assessment/Plan Patient was seen and examined with physician assistant teaching professor Pedro Singh. I agree with his above history, physical exam and assessment and plan as documented in his note. Brief, this is a 52-year-old male who started having cough with chest pain as well as shortness of breath starting from February, when he saw his primary care doctor. He was treated for pneumonia. Patient subsequently reports about to the primary care doctor, had workup for shortness of breath with negative 2D echo and stress test. He reported to the ED on 03/24/2018 with progressive shortness of breath and was found to be severely anemic with hemoglobin of about 4, he was found also in A. fib with RVR, pulmonary embolism and with significant left-sided pleural effusion. Patient was transferred to [facility] and managed with 4 units of packed RBC, he had an IVC placed, he had an EGD and colonoscopy which showed some gastric ulcers and also polyps. Discharge [address] [facility] when he decides to go to [employer] to get some streeter and as he was walking he felt like he was having atenolol vision, felt slightly dizzy, and lost consciousness several times with associated loss of bowels. No seizures was seen. His was with him at the moment. Vitals in the ED were negative, labs were unremarkable. Physical exam: General: Patient is alert oriented 3, not pale, no jaundice, well hydrated, obese CVS: Heart sounds 1 and 2 heard, tachycardic, no murmurs were heard Respiratory: Clinically clear to auscultation Abdomen: Bowel sounds were present and normal, no areas of tenderness, no palpable organs INFORMATICA MDM ARCHITECT: Patient was alert oriented 3, He 5/5 in all extremities, normal tone, reflexes were intact, cranial nerve II through XII intact Psych: Appropriate affect A/P: 1. Syncope versus seizure 2. Metabolic acidosis secondary to lactic acidosis 3. Lactic acidosis, unclear etiology 4. Anemia secondary to recent GI bleed 5. History of PE status post IVC 6. Hypertension 7. Type II DM Plan: Immediate retrieval of records from [facility] IV hydration, orthostatic vitals Stat medication reconciliation form recent discharge Neurology consult MRI of the brain if IVC filter is compatible - to bring IVC filter card. EEG Repeat blood work in a.m. FOBT Insulin sliding scale with Accu-Cheks Code Visit Inpatient E AND M: [id number] Init Hosp L3 04/09/18 1531 <Electronically signed by Pedro HIGH> Date Pedro HIGH 04/09/18 1623<Electronically signed by Emily Livingston MD> Cosigner Signature: Date (if applicable) Emily Livingston MD CC: ANILA Singh; Emily Livingston MD; Ravindra Durham MD Signed BEDSIDE GLUCOSE Collected: 04/09/2018 Status: F Source: KATHERINE 4:04 PM [facility] [place] [place] REPOSITORY TYPE CODE TESTS RESULT OUT OF REFERENCE UNITS RANGE LAB L501.080 70-110 mg/dL High BEDSIDE GLU 329 Result Comment: MANAGEMENT OF PATIENT CARE PER NURSING PROTOCOL Performed By: #### L501.080 #### [facility] Point of Care [address] [place] [address] BRAIN/HEAD WITHOUT Observed: 04/09/2018 Status: F Source: KATHERINE CONTRAST 3:22 PM [facility] REPOSITORY [facility] [place] [address] Brain/Head without Contrast MR#: [id number] Acct: [id number] Name: JOEL MATSON Rep #: [id number] : 1965 M 52 From: Camilla Laura MD PCP: Ravindra Durham MD, Chi Status: ADM IN Study: Brain/Head without Contrast Date of Exam: 04/09/18 Exam# [id number] Ordering Dr: Pedro Singh STUDY: CT BRAIN WITHOUT CONTRAST REASON FOR EXAM: Male, 52 years old. Right-sided blurred vision with syncope. Patient has history of testicular cancer. RADIATION DOSAGE (If Supplied By Facility): CTDIvol = ( 44.99 ) mGy, DLP = ( 745.49 ) mGycm TECHNIQUE: Transaxial CT imaging of the brain was performed without administration of intravenous contrast material. Multiplanar reformations are submitted for interpretation. Individualized dose optimization techniques were used for this CT. COMPARISON: None. FINDINGS: Normal soft tissue structures. Normal calvarium. There is mild cerebral atrophy with widening of the extra- axial spaces and ventricular dilatation. There are areas of decreased attenuation within the white matter tracts of the supratentorial brain, consistent with microvascular disease changes. Normal basal ganglia and thalami. Normal brainstem. Normal cerebellum. There is no intracranial hemorrhage. There are no findings of an acute ischemic infarction. Normal visualized paranasal sinuses. CT/Brain/Head without Contrast IMPRESSION: No CT evidence of acute intracranial hemorrhage. Electronically Signed: Camilla Laura MD at 16:09 EDT , Service support , CC: ANILA Singh; Ravindra Durham MD State Pilot: Signed Observed: 04/09/2018 Status: F Source: KATHERINE STOOL OCCULT BLOOD 2:35 PM [facility] [place] [place] IFOB REPOSITORY Order Date: 04/09/18 STOB iFOB Occult Blood Negative Performed By: #### M100.7900 #### [facility] [address] [place], [address] PROTHROMBIN TIME W/INR Collected: 04/09/2018 Status: F Source: KATHERINE 2:15 PM [facility] [place] [place] REPOSITORY Order Comment: REDRAW. PREVIOUS SPECIMEN REJECTED DUE TO QNS. 04/09/18 1353 Yazmin Moyer. TYPE CODE TESTS RESULT OUT OF RANGE REFERENCE UNITS LAB L300.4150 11.7-14.9 SECONDS Normal PROTIME 13.7 LAB L300.4200 Normal INR 1.1 Performed By: #### L300.3900, L300.4310 #### [facility] [address] [place], [address] PARTIAL THROMBOPLAST Collected: 04/09/2018 Status: F Source: KATHERINE TIME 2:15 PM [facility] [place] [place] REPOSITORY Order Comment: REDRAW. PREVIOUS SPECIMEN REJECTED DUE TO QNS. 04/09/18 1353 Yazmin Moyer. TYPE CODE TESTS RESULT OUT OF RANGE REFERENCE UNITS LAB L300.4310 24.1-36.2 Seconds Normal PTT 25.4 Performed By: #### L300.3900, L300.4310 #### [facility] [address] [place], [place], [address] LACTIC ACID Collected: 04/09/2018 Status: F Source: KATHERINE 1:10 PM [facility] [place] [place] REPOSITORY Order Comment: Yes/No query for Sepsis Lactate Rule Y TYPE CODE TESTS RESULT OUT OF REFERENCE UNITS RANGE LAB L503.6005 0.4-2.0 mmol/L High alert LACTIC ACID 4.6 Result Comment: Critical Result(s) Called at: 13:55:01 04/09/2018 by: Yazmin Jones Performed By: #### L503.6005 #### [facility] [address] [place], [address] CBC W/DIFF, AUTOMATED Collected: 04/09/2018 Status: F Source: KATHERINE 12:45 PM [facility] [place] [place] REPOSITORY TYPE CODE TESTS RESULT OUT OF RANGE REFERENCE UNITS LAB L100.1000 4.4-11.0 K/mm3 Normal WBC 6.6 LAB L100.1200 4.6-6.2 M/mm3 Low RBC 4.31 LAB L100.1300 13.0-16.5 g/dl Low HGB 11.2 LAB L100.1400 40-54 % Low HCT 36.7 LAB L100.1500 80-94 fL Normal MCV 85.2 LAB L100.1600 27.0-32.0 pg Low MCH 26.0 LAB L100.1700 32-36 g/gl Low MCHC 30.5 LAB L100.1810 11.6-14.6 % High RDW CV 15.5 LAB L100.1820 35.1-43.9 fl High RDW SD 48.8 LAB L100.1900 150-450 K/mm3 Normal PLT 165 LAB L100.2000 6.2-12.0 fl Normal MPV 10.4 LAB L100.2100 47-70 % Normal NEUT% 68.3 LAB L100.2200 19-41 % Normal LY% 21.8 LAB L100.2300 0-10 % Normal MONO% 8.0 LAB L100.2400 0-5 % Normal EO% 1.1 LAB L100.2500 0-1 % Normal BASO% 0.3 LAB L100.2550 0.0-0.9 % Normal IM GRAN % 0.500 Result Comment: IG% - Immature Granulocytes (promyelocytes, myelocytes and metamyelocytes) > 1% indicates that a LEFT SHIFT is Present. LAB L100.2620 2.0-7.7 X10 3/uL Normal Absolute Neut 4.5 LAB L100.2720 0.83-4.51 X10 3/ul Normal Absolute Lymph 1.44 LAB L100.4500 Normal SMEAR COMMENT SCANNED Performed By: #### L100.0100 #### [facility] [address] [place], [address] BASIC METABOLIC Collected: 04/09/2018 Status: F Source: KATHERINE PROFILE (BMP) 12:45 PM [facility] [place] [place] REPOSITORY TYPE CODE TESTS RESULT OUT OF RANGE REFERENCE UNITS LAB L501.0100 74-106 mg/dL High GLU 414 Result Comment: Glucose result greater than or equal to 200 mg/dL suggests DIABETES MELLITUS per A.D.A. criteria. Please note revised GLUCOSE reference range effective 2017. LAB L501.1000 7-18 mg/dL Normal BUN 15 LAB L501.1100 0.70-1.30 mg/dL Normal CREAT,SERUM 1.25 Result Comment: The validity of the calculated GFR AND GFRAA in patients over 70 years has not been determined. Clinical correlation is essential. LAB L501.1110 >60 mL/min Normal EST GFR 65 Result Comment: Non- GFR Calc LAB L501.1115 >60 mL/min Normal EST GFR - AA 78 Result Comment: GFR Calc LAB L501.1255 ml/min Normal Estimated CRCL 67.64 LAB L501.1300 10-20 RATIO Normal BUN/CRE 12.0 LAB L501.2200 8.5-10 mg/dL Normal .1 CA 9.3 LAB L501.5300 136-14 mmol/L Low 5 NA 131 LAB L501.5600 3.5-5. mmol/L Normal 1 K 4.6 Result Comment: Moderate Hemolysis, Result may be falsely increased. LAB L501.5900 98-107 mmol/L Normal CL 100 LAB L501.6100 21.0-32.0 mmol/L Low CO2 17.0 LAB L501.6200 5-15 Normal GAP 14 Performed By: #### L500.2500, L501.4010 #### [facility] [address] [place], [address] TROPONIN-I Collected: 04/09/2018 Status: F Source: [place] 12:45 PM [facility] [place] [place] REPOSITORY TYPE CODE TESTS RESULT OUT OF RANGE REFERENCE UNITS LAB L501.4010 <0.045 ng/mL Normal < 0.015 TROPONIN-I Result Comment: TROPONIN-I EXPECTED VALUES <0.045 Negative 0.045 - 0.590 Consistent with Cardiac Damage > OR = 0.600 Critical Value Not every elevated troponin is indicative of SD. These values should be used with clinical judgement in examining the patient's clinical picture for diagnosis. To establish a diagnosis of SD versus myocardial injury, there must be a demonstrated rise and/or fall in the troponin values, in addition to ischemic symptoms, EKG changes, new regional wall motion abnormality, and/or angiographical evidence. PLEASE NOTE: REFERENCE RANGES EDITED 18 Performed By: #### L500.2500, L501.4010 #### [facility] [address] [place], [address] Observed: 04/09/2018 Status: F Source: [place] CULTURE, BLOOD (WB) 12:45 PM [facility] [place] [place] REPOSITORY BC No growth in 5 days. Performed By: #### M200.1000 #### [facility] [address] [place], [address] CHEST 1 VIEW Observed: 04/09/2018 Status: F Source: [place] (PORTABLE) 12:21 PM [facility] [place] [place] REPOSITORY [facility] Imaging Services [address] [place] [address] Chest 1 View (Portable) MR#: [id number] Acct: [id number] Name: JOEL MATSON Alyssa Rep #: [id number] : 1965 M 52 From: Alvino Clement MD PCP: Herminio GARCIA,Ravindra Russo Status: REG ER Study: Chest 1 View (Portable) Date of Exam: 04/09/18 Exam# [id number] Ordering Dr: Fred Brooks MD STUDY: X-RAY CHEST REASON FOR EXAM: Male, 52 years old. Shortness of breath. TECHNIQUE: Single AP portable upright view of the chest. COMPARISON: Audible AP upright chest x-ray and CTA chest/thorax March 24, 2018. FINDINGS: There has been nearly complete clearing of the left base airspace disease and pleural effusion, with very minor residual curvilinear subsegmental atelectasis and lateral pleural thickening. No new infiltrate. There is no demonstrated pleural abnormality. Normal size heart. Normal mediastinum and lucy. Normal visualized pulmonary arteries. Normal visualized aortic arch and descending thoracic aorta. There are stable multilevel degenerative changes of the visualized thoracic spine. Normal visualized ribs, clavicles, and shoulders. There is no demonstrated abnormality of the visualized soft tissue structures of the upper abdomen. RAD/Chest 1 View (Portable) IMPRESSION: Nearly complete interval clearing of left base airspace disease and pleural effusion, as noted. No acute cardiopulmonary disease. Electronically Signed: Magen Clement MD at 12:49 EDT , Service support , CC: Fred Brooks MD; Ravindra Durham MD State Pilot: Signed BEDSIDE GLUCOSE Collected: 04/09/2018 Status: F Source: [place] 12:18 PM [facility] [place] [place] REPOSITORY TYPE CODE TESTS RESULT OUT OF REFERENCE UNITS RANGE LAB L501.080 70-110 mg/dL High BEDSIDE GLU 401 Result Comment: MANAGEMENT OF PATIENT CARE PER NURSING PROTOCOL Performed By: #### L501.080 #### [facility] Point of Care [address] [place] [address]. [place] [address] TYPE AND SCREEN Collected: 04/09/2018 Status: F Source: [place] 12:00 PM [facility] [place] [place] REPOSITORY Order Comment: Reason for Type AND Screen/Red Cells: ANEMIA TYPE CODE TESTS RESULT OUT OF RANGE REFERENCE UNITS LAB B10.0800 B Normal BLOOD TYPE GEL POSITIVE LAB B100.4000 Normal Antibody NEGATIVE Screen Performed By: #### B101.7450 #### [facility] [address] [place], [address] Observed: 04/09/2018 Status: F Source: [place] CULTURE, BLOOD (WB) 12:00 PM [facility] [place] [place] REPOSITORY BC No growth in 5 days. Performed By: #### M200.1000 #### [facility] [address] [place], [address] ALLIED HEALTH Observed: 04/04/2018 Status: COMPLETED Source: [place] 12:51 PM CLINIC OTHER CAMPUS REPOSITORY HNO ID: [id number] Author: Oksana CoreasRn) INEZ Magallanes Service: Home Care Services Author Type: Registered Nurse Type: Allied Health Filed: 04/04/2018 12:52 PM Note Text: INDUCTOR TESTER NOTE SERVICE DATE: 04/04/2018 SERVICE TIME: 12:52 PM No home care needs noted at discharge. No home care set up SIGNATURE: Oksana Magallanes RN PATIENT NAME: Joel Matson DATE: April 04, 2018 TIME: 12:52 PM PLAN OF CARE Observed: 04/04/2018 Status: COMPLETED Source: [place] 12:45 PM [facility] REPOSITORY HNO ID: [id number] Author: Drew Palencia MD Service: Hospital Medicine Author Type: Physician Type: Plan of Care Filed: 04/04/2018 12:47 PM Note Text: An Affiliate of [facility] 04/04/2018 Joel Matson [address] [facility] [address] RE: Joel Matson This is to certify that Joel Matson is under my care and will be able to return to work on April 13, 2018 . The following restrictions are placed on this person: No restrictions.. Required to take medication during active hours: No . If you have any further questions, feel free to contact my office. Best Regards, Drew Palencia MD (Signed electronically to expedite mailing) 12:45 PM 04/04/2018 CNDS Observed: 04/04/2018 Status: COMPLETED Source: [place] 12:45 PM [facility] REPOSITORY HNO ID: [id number] Author: Drew Palencia MD Service: Hospital Medicine Author Type: Physician Type: Discharge Summaries Filed: 04/04/2018 12:45 PM Note Text: DISCHARGE SUMMARY ADMISSION DATE: 03/24/2018 DISCHARGE DATE: 04/04/2018 Attending Physician: Drew Palencia MD Reason for Hospitalization: shortness of breath Final Diagnoses: empyema Active Hospital Problems Obesity, Class II, BMI 35-39.9 [E66.9] Obstructive sleep apnea [G47.33] Diabetes (HCC) [E11.9] Nicotine use disorder, F17.2 [F17.200] Obesity, Class III, BMI >= 40 [E66.01] Malnutrition of moderate degree (HCC) [E44.0] Anemia [D64.9] Atrial fibrillation with RVR (HCC) [I48.91] Pulmonary embolism (HCC) [I26.99] GI bleed [K92.2] Operations During Hospitalization: none Procedures During Hospitalization: chest tube placement Hospital Course: Patient was transferred from [facility] Emergency Department for severe anemia, severe dyspnea, loculated left pleural effusion with left lower lobe infiltrate and left lower lobe pulmonary embolism. He was noted to be in atrial fibrillation. He was suspected to have GI bleeding with maroon colored stools. He was started on intravenous Zosyn in [place] and this was continued after transfer here. He was admitted under the Pulmonary Critical Care Service to the ICU. Vascular Surgery was consulted and has placed an IVC filter. Thoracic Surgery has been consulted and placed a chest tube. Gastroenterology has also been consulted, he had an upper GI endoscopy with biopsy showing 3 small gastric ulcers, colonoscopy showed Diverticulosis without bleeding. Otherwise normal colon and terminal ileum. ID was consulted, urine showed Positive pneumococcal pneumonia antigen, patient was switched to Unasyn and then to Augmentin on discharge, patient was having massive B/L LE swelling started on lasix IV, and switched to oral on discharge. Patient was discharged home in stable condition to follow up with PCP in 1 week. Patient Condition @ Discharge: Stable Discharge Disposition: Home/Self Care Information Provided to Patient: Smoking Cessation Material Given Discharge Medications: Current Discharge Medication List START taking these medications amoxicillin-clavulanic acid (AUGMENTIN) 875 mg Take 875 mg by mouth every 12 hours. Qty: 7 tablet Refills: 0 furosemide (LASIX) 40 mg Take 40 mg by mouth once daily. Qty: 5 tablet Refills: 0 potassium chloride ER (K-DUR, KLOR-CON) 20 mEq Take 20 mEq by mouth once daily. Qty: 5 tablet Refills: 0 CONTINUE these medications which have NOT CHANGED empagliflozin (JARDIANCE) 25 mg Take 25 mg by mouth once daily. insulin degludec-liraglutide 50 Units Inject 50 Units subcutaneously once daily. Do not mix with other insulins. testosterone 2 pumps Apply 2 pumps as directed once daily. metFORMIN (GLUCOPHAGE) 1,000 mg Take 1,000 mg by mouth twice daily with meals. linagliptin 1 tablet Take 1 tablet by mouth once daily. rosuvastatin (CRESTOR) 40 mg Take 40 mg by mouth daily at bedtime. losartan (COZAAR) 100 mg Take 100 mg by mouth once daily. diclofenac (EC) (VOLTAREN) 50 mg Take 50 mg by mouth twice daily. With food baclofen (LIORESAL) 10 mg Take 10 mg by mouth daily at bedtime. gabapentin (NEURONTIN) 400 mg Take 400 mg by mouth three times daily. escitalopram oxalate (LEXAPRO) 10 mg Take 10 mg by mouth once daily. albuterol HFA (PROVENTIL HFA, VENTOLIN HFA) 2 Puffs Inhale 2 Puffs as instructed every 4 hours as needed for Wheezing/Shortness of Breath. Future Appointments: follow up with pcp in 1 wk and pulmo in 2 weeks This note was generated using Ele[employer] system SIGNATURE: Drew Palencia MD PATIENT NAME: Joel Matson DATE: April 04, 2018 TIME: 9:21 AM HOSPITAL NUMBER: [phone] GLUCOSE METER Collected: 04/04/2018 Status: F Source: [facility] 11:27 AM HEALTH SYSTEM REPOSITORY TYPE CODE TESTS RESULT OUT OF REFERENCE UNITS RANGE LAB GLUBL(LOINC 70-99 mg/dL ) High Glucose Meter 264 Result Comment: RN NOTIFIED Performed By: #### GLMET #### [place] [address] CASE MANAGEM Observed: 04/04/2018 Status: COMPLETED Source: [place] 10:18 AM CLINIC OTHER CAMPUS REPOSITORY O ID: [id number] Author: Breann (Rn) INEZ Vogel Service: Care Management Author Type: Registered Nurse Type: Care Mgt Progress Note Filed: 04/04/2018 10:19 AM Note Text: CT removed. Per ID note, antic D/C with PO atbx. Discharge plan remains home with spouse when medically ready for discharge. GLUCOSE METER Collected: 04/04/2018 Status: F Source: [facility] 6:46 AM HEALTH SYSTEM REPOSITORY TYPE CODE TESTS RESULT OUT OF REFERENCE UNITS RANGE LAB GLUBL(LOINC 70-99 mg/dL ) High Glucose Meter 209 Performed By: #### GLMET #### [place] [address] HEMOGRAM/DIFF Collected: 04/04/2018 Status: F Source: [facility] 4:00 AM HEALTH SYSTEM REPOSITORY TYPE CODE TESTS RESULT OUT OF REFERENCE UNITS RANGE LAB WBC(LOINC) 4.23-9.07 thou/cmm Low WBC 2.33 LAB RBC(LOINC) 4.63-6.08 mil/cmm Low RBC 3.02 LAB HGB(LOINC) 13.7-17.5 g/dL Low Hgb 9.2 LAB HCT(LOINC) 40.1-51.0 % Low Hct 27.7 LAB MCV(LOINC) 83.2-95.6 fl MCV 91.7 LAB MCH(LOINC) 25.7-32.2 pg MCH 30.5 LAB MCHC(LOINC 32.3-36.5 % ) MCHC 33.2 LAB RDW(LOINC) 11.6-14.4 % RDW High 16.0 LAB RDWSD(LOIN 36.1-45.8 fl C) RDW SD High 52.3 LAB PLT(LOINC) 141-365 thou/cmm Low Platelet 126 LAB MPV(LOINC) 8.7-12.0 fl MPV 9.9 LAB SEG(LOINC) % Seg Neutrophil 40.0 LAB IGRE(LOINC % ) Immature Grans 0.40 LAB LYMPH(LOIN % C) Lymphocyte 43.3 LAB MNO(LOINC) % Monocyte 14.2 LAB EOSIN(LOIN % C) Eosinophil 1.7 LAB BASO(LOINC % ) Basophil 0.4 LAB SEGN(LOINC 1.78-5.38 thou/cmm ) Low Abs. Neut (ANC) 0.93 LAB IGAB(LOINC 0.00-0.05 thou/cmm ) Abs Immature Grans 0.01 LAB LYMN(LOINC 0.84-2.85 thou/cmm ) Abs. Lymph 1.01 LAB MONON(LOIN 0.30-0.82 thou/cmm C) Abs. Dickinson 0.33 LAB EOSN(LOINC 0.04-0.54 thou/cmm ) Abs. Eosin 0.04 LAB BASON(LOIN 0.01-0.08 thou/cmm C) Abs. Baso 0.01 Performed By: #### CBCD1 #### [address] [address] BASIC PANEL Collected: 04/04/2018 Status: F Source: [facility] 4:00 AM HEALTH SYSTEM REPOSITORY TYPE CODE TESTS RESULT OUT OF REFERENCE UNITS RANGE LAB NA(LOINC) 136-145 mEq/L Sodium Blood 137 LAB K(LOINC) 3.5-5.1 mEq/L Potassium Blood 3.7 LAB CL(LOINC) 98-107 mEq/L Chloride Blood 104 LAB CO2(LOINC) 21-32 mEq/L CO2 Blood 29 LAB GLU(LOINC) 70-99 mg/dL Glucose High Blood 196 LAB BUN(LOINC) 7-18 mg/dL BUN Blood 7 LAB CREA(LOINC 0.67-1.17 mg/dL ) Low Creatinine Blood 0.59 LAB CA(LOINC) 8.5-10.1 mg/dL Calcium Blood 8.6 LAB ANGAP(LOIN 8-16 C) Anion Gap 8 Performed By: #### P8 #### [place] [address] MDRD GFR Collected: 04/04/2018 Status: F Source: [facility] 4:00 AM HEALTH SYSTEM REPOSITORY TYPE CODE TESTS RESULT OUT OF RANGE REFERENCE UNITS LAB GFRFN(LOINC >60mL/min/1.73m ) 2 eGFR >60 Result Comment: If the patient is , multiply the result by 1.210. Performed By: #### GFR #### [place] [address] GLUCOSE METER Collected: 04/03/2018 Status: F Source: [facility] 9:06 PM HEALTH SYSTEM REPOSITORY TYPE CODE TESTS RESULT OUT OF REFERENCE UNITS RANGE LAB GLUBL(LOINC 70-99 mg/dL ) High Glucose Meter 272 Result Comment: RN NOTIFIED Performed By: #### GLMET #### [place] [address] GLUCOSE METER Collected: 04/03/2018 Status: F Source: [facility] 4:32 PM HEALTH SYSTEM REPOSITORY TYPE CODE TESTS RESULT OUT OF REFERENCE UNITS RANGE LAB GLUBL(LOINC 70-99 mg/dL ) High Glucose Meter 300 Result Comment: RN NOTIFIED Performed By: #### GLMET #### [place] [address] PROGRESS Observed: 04/03/2018 Status: COMPLETED Source: [place] 3:49 PM CLINIC OTHER CAMPUS REPOSITORY HNO ID: [id number] Author: Drew Palencia MD Service: Hospital Medicine Author Type: Physician Type: Progress Notes Filed: 04/03/2018 3:50 PM Note Text: ? INTERNAL MEDICINE PROGRESS NOTE ? Patient Name: Joel Matson DATE OF : 1965 ? INTERVAL HISTORY: Patient was seen and examined, complaints of LE swelling, denies any chest pain or shortness of breath. Had his chest tube removed yesterday. ? MEDICATIONS: ? Current hospital medications: furosemide 40 mg injection (LASIX) 40 mg INTRAVENOUS DAILY potassium chloride ER 20 mEq tab(s) (K-DUR, KLOR-CON) 20 mEq ORAL DAILY ampicillin-sulbactam 3 g in NaCl 0.9% 100 mL MB+ (UNASYN) 3 g INTRAVENOUS q 6 H oxyCODONE IR 5-10 mg tab(s) (ROXICODONE) 5-10 mg ORAL q 4 H PRN morphine 4 mg injection 4 mg INTRAVENOUS q [address] 40 mg tab(s) (PROTONIX) 40 mg ORAL BID AC (0600/1600) insulin regular human injection (short acting) (NovoLIN R,HumuLIN R) ? SUBCUTANEOUS w MEALS AND HS dextrose 40 % 15 g 15 g ORAL PRN glucagon 1 mg injection (GLUCAGEN) 1 mg INTRAMUSCULAR PRN dextrose 50% in water 25 mL syringe 12.5 g INTRAVENOUS PRN prochlorperazine 5 mg injection (COMPAZINE) 5 mg INTRAVENOUS q 6 H PRN ? ? PHYSICAL EXAM: ? VITAL SIGNS Patient Vitals for the past 24 hrs: ? BP Temp Temp src Pulse Resp SpO2 04/03/18 0700 134/65 36.1 ?C (97 ?F) Temporal Art 73 18 100 % 04/03/18 0335 138/82 36.1 ?C (97 ?F) Temporal Art 75 18 100 % 04/02/18 2315 127/64 36.6 ?C (97.9 ?F) Temporal Art 75 18 98 % 04/02/18 1915 113/62 36.4 ?C (97.5 ?F) Temporal Art 77 18 99 % ? ? Temp (24hrs), Av.3 ?C (97.4 ?F), Min:36.1 ?C (97 ?F), Max:36.6 ?C (97.9 ?F) Body mass index is 39.59 kg/m?. ? INTAKE/OUTPUT Intake/Output ? 03/30/18 0700 - 03/31/18 0659 03/31/18 07 - 04/01/18 0659 04/01/18 0700 - 04/02/18 0659 04/02/18 0700 - 04/03/18 0659 04/03/18 0700 - 04/04/18 0659 ? Intake (ml) 960 6679 259 5431 580 ? Output (ml) 283 67 125 4 4 ? Net (ml) 677 5286 693 8769 576 ? GENERAL: alert, no distress, cooperative LUNGS: Lungs clear to auscultation. Good diaphragmatic excursion. CARDIAC: Normal S1 and S2; no rubs, murmurs, or gallops ABDOMEN: Abdomen soft, non-tender. BS normal. No masses or organomegaly. EXTREMITIES: B/L LE pitting edema ? ? LAB DATA: ? CBC: ? ? Recent Labs ? 04/02/18 0735 03/31/18 0726 03/30/18 0425 03/29/18 1449 03/29/18 0245 03/28/18 1410 03/28/18 0318 WBC 2.35* 3.23* 3.85* -- 3.38* -- 3.51* HB 8.3* 8.7* 8.1* 7.7* 7.8* 7.7* 7.3* HCT 26.5* 28.3* 25.9* -- 25.1* -- 23.1* PLT 135* 107* 121* -- 105* -- 75* MCV 88.9 92.5 91.5 -- 92.3 -- 92.0 ? BMP: ? ? Recent Labs ? 04/02/18 0735 03/31/18 0726 03/30/18 0425 03/29/18 0245 03/28/18 0318 GLUC 183* 171* 163* 188* 121* NA 139 136 139 142 141 K 3.9 3.9 3.9 3.6 3.7 CHLOR 104 103 108* 111* 112* CO2 32 28 28 26 23 ANION 7* -- -- -- 10 BUN 5* 5* 4* 6* 4* CREAT 0.59* 0.50* 0.52* 0.61* 0.54* ? ? CHEM: ? ? Recent Labs ? 04/02/18 0735 03/31/18 0726 03/30/18 0425 03/29/18 0245 03/28/18 0318 ALB -- 2.2* 2.3* 1.8* -- CA 8.4* 8.5 8.3* 8.0* 7.4* P -- 3.3 2.9 2.4* -- ASSESSMENT AND PLAN: 1. Strep pneumococcal pneumonia(LLL) ?with left parapneumonic effusion s/p chest tube placement. - ?Appreciate ID and CT surgery input. - on antibiotics - Unasyn to continue antibiotics till 04/07/18. Will change to Augmentin 875 mg on d/c. - CT removed yesterday - Pleural Cx negative to date - Cytology negative - pain control - Likely D/C home tomorrow ? 2. GI bleeding with EGD evidence of 3 antral ulcers -clean based. No evidence of Lower GI bleeding. Counseled on the need to stop NSAIDs. H.pylori negative on antral biopsy. 3. Acute blood loss anemia from #2. Stable H/H. No further intervention planned. Continue monitoring 4. A-fibrillation - Transient - resolved. 5. DM - stable 6. Peripheral edema - most probably 2ry to his DVT, Will start IV lasix for 2 days while inpatient, will check kidney function tomorrow. 7. Recent PE s/p IVC filter placement ? MAINTENANCE: VTE Prophylaxis: Pneumatic Compression Device GI PROPHYLAXIS: Pantoprazole 40mg PO daily NUTRITION: Eating and drinking diet ? CONSULTATIONS ON CASE: ID CT surgery ? Active Hospital Problems Obesity, Class II, BMI 35-39.9 [E66.9] ? Obstructive sleep apnea [G47.33] ? Diabetes (HCC) [E11.9] ? Nicotine use disorder, F17.2 [F17.200] ? Obesity, Class III, BMI >= 40 [E66.01] ? Malnutrition of moderate degree (HCC) [E44.0] ? Anemia [D64.9] ? Atrial fibrillation with RVR (HCC) [I48.91] ? Pulmonary embolism (HCC) [I26.99] ? GI bleed [K92.2] ? ? ? SIGNATURE: Drew Palencia MD ? This note was generated using Dragon dictation system This note is not final until staffed by the attending physician and authenticated by responsible provider. ? SIGNATURE: Drew Palencia MD PATIENT NAME: Joel Matson ? GLUCOSE METER Collected: 04/03/2018 Status: F Source: [facility] 12:01 PM HEALTH SYSTEM REPOSITORY TYPE CODE TESTS RESULT OUT OF REFERENCE UNITS RANGE LAB GLUBL(LOINC 70-99 mg/dL ) High Glucose Meter 203 Result Comment: RN NOTIFIED Performed By: #### GLMET #### [place] [address] CNDS Observed: 04/03/2018 Status: COMPLETED Source: [place] 8:17 AM CLINIC OTHER CAMPUS REPOSITORY HNO ID: [id number] Author: Drew Palencia MD Service: Hospital Medicine Author Type: Physician Type: Discharge Summaries Filed: 04/03/2018 3:48 PM Note Text: INTERNAL MEDICINE PROGRESS NOTE Patient Name: Joel Matson DATE OF : 1965 INTERVAL HISTORY: Patient was seen and examined, complaints of LE swelling, denies any chest pain or shortness of breath. Had his chest tube removed yesterday. MEDICATIONS: Current hospital medications: furosemide 40 mg injection (LASIX) 40 mg INTRAVENOUS DAILY potassium chloride ER 20 mEq tab(s) (K-DUR, KLOR-CON) 20 mEq ORAL DAILY ampicillin-sulbactam 3 g in NaCl 0.9% 100 mL MB+ (UNASYN) 3 g INTRAVENOUS q 6 H oxyCODONE IR 5-10 mg tab(s) (ROXICODONE) 5-10 mg ORAL q 4 H PRN morphine 4 mg injection 4 mg INTRAVENOUS q [address] 40 mg tab(s) (PROTONIX) 40 mg ORAL BID AC (0600/1600) insulin regular human injection (short acting) (NovoLIN R,HumuLIN R) SUBCUTANEOUS w MEALS AND HS dextrose 40 % 15 g 15 g ORAL PRN glucagon 1 mg injection (GLUCAGEN) 1 mg INTRAMUSCULAR PRN dextrose 50% in water 25 mL syringe 12.5 g INTRAVENOUS PRN prochlorperazine 5 mg injection (COMPAZINE) 5 mg INTRAVENOUS q 6 H PRN PHYSICAL EXAM: VITAL SIGNS Patient Vitals for the past 24 hrs: BP Temp Temp src Pulse Resp SpO2 04/03/18 0700 134/65 36.1 ?C (97 ?F) Temporal Art 73 18 100 % 04/03/18 0335 138/82 36.1 ?C (97 ?F) Temporal Art 75 18 100 % 04/02/18 2315 127/64 36.6 ?C (97.9 ?F) Temporal Art 75 18 98 % 04/02/18 1915 113/62 36.4 ?C (97.5 ?F) Temporal Art 77 18 99 % Temp (24hrs), Av.3 ?C (97.4 ?F), Min:36.1 ?C (97 ?F), Max:36.6 ?C (97.9 ?F) Body mass index is 39.59 kg/m?. INTAKE/OUTPUT Intake/Output 03/30/18 0700 - 03/31/18 0659 03/31/18 0700 - 04/01/18 0659 04/01/18 0700 - 04/02/18 0659 04/02/18 0700 - 04/03/18 0659 04/03/18 0700 - 04/04/18 0659 Intake (ml) 960 7306 470 5890 580 Output (ml) 283 67 125 4 4 Net (ml) 677 5820 502 1863 576 GENERAL: alert, no distress, cooperative LUNGS: Lungs clear to auscultation. Good diaphragmatic excursion. CARDIAC: Normal S1 and S2; no rubs, murmurs, or gallops ABDOMEN: Abdomen soft, non-tender. BS normal. No masses or organomegaly. EXTREMITIES: B/L LE pitting edema LAB DATA: CBC: Recent Labs 04/02/18 0735 03/31/18 0726 03/30/18 0425 03/29/18 1449 03/29/18 0245 03/28/18 1410 03/28/18 0318 WBC 2.35* 3.23* 3.85* -- 3.38* -- 3.51* HB 8.3* 8.7* 8.1* 7.7* 7.8* 7.7* 7.3* HCT 26.5* 28.3* 25.9* -- 25.1* -- 23.1* PLT 135* 107* 121* -- 105* -- 75* MCV 88.9 92.5 91.5 -- 92.3 -- 92.0 BMP: Recent Labs 04/02/1873403/31/1872503/30/1842403/29/1824403/28/18317 GLUC 183* 171* 163* 188* 121* NA 139 136 139 142 141 K 3.9 3.9 3.9 3.6 3.7 CHLOR 104 103 108* 111* 112* CO2 32 28 28 26 23 ANION 7* -- -- -- 10 BUN 5* 5* 4* 6* 4* CREAT 0.59* 0.50* 0.52* 0.61* 0.54* CHEM: Recent Labs 04/02/1873403/31/1872503/30/1842403/29/1824403/28/18317 ALB -- 2.2* 2.3* 1.8* -- CA 8.4* 8.5 8.3* 8.0* 7.4* P -- 3.3 2.9 2.4* -- ASSESSMENT AND PLAN: 1. Strep pneumococcal pneumonia(LLL) ?with left parapneumonic effusion s/p chest tube placement. - ?Appreciate ID and CT surgery input. - on antibiotics - Unasyn to continue antibiotics till 04/07/18. Will change to Augmentin 875 mg on d/c. - CT removed yesterday - Pleural Cx negative to date - Cytology negative - pain control - Likely D/C home tomorrow ? 2. GI bleeding with EGD evidence of 3 antral ulcers -clean based. No evidence of Lower GI bleeding. Counseled on the need to stop NSAIDs. H.pylori negative on antral biopsy. 3. Acute blood loss anemia from #2. Stable H/H. No further intervention planned. Continue monitoring 4. A-fibrillation - Transient - resolved. 5. DM - stable 6. Peripheral edema - most probably 2ry to his DVT, Will start IV lasix for 2 days while inpatient, will check kidney function tomorrow. 7. Recent PE s/p IVC filter placement MAINTENANCE: VTE Prophylaxis: Pneumatic Compression Device GI PROPHYLAXIS: Pantoprazole 40mg PO daily NUTRITION: Eating and drinking diet CONSULTATIONS ON CASE: ID CT surgery Active Hospital Problems Obesity, Class II, BMI 35-39.9 [E66.9] Obstructive sleep apnea [G47.33] Diabetes (HCC) [E11.9] Nicotine use disorder, F17.2 [F17.200] Obesity, Class III, BMI >= 40 [E66.01] Malnutrition of moderate degree (HCC) [E44.0] Anemia [D64.9] Atrial fibrillation with RVR (HCC) [I48.91] Pulmonary embolism (HCC) [I26.99] GI bleed [K92.2] SIGNATURE: Drew Palencia MD This note was generated using [employer] system This note is not final until staffed by the attending physician and authenticated by responsible provider. SIGNATURE: Drew Palencia MD PATIENT NAME: Joel Matson PROGRESS Observed: 04/03/2018 Status: COMPLETED Source: [place] 6:45 AM [facility] OTHER CAMPUS REPOSITORY HNO ID: [id number] Author: Alejandro Montelongo Service: Thoracic Surgery Author Type: Physician Type: Progress Notes Filed: 04/03/2018 10:30 AM Note Text: Thoracic Surgery 2-view CXR reviewed IMPRESSION: 1. There has been removal of left-sided chest tube. ?No pneumothorax visualized. ? 2. Linear atelectasis in the left lower lobe with persistent small left effusion. - 100% SpO2 on room air - mgmt per primary and pulm - Thoracic surgery will sign off, call with questions/concerns Santos Wen MD 04/03/2018 6:47 AM Cxr reviewed and discussed with resident. Patient not seen by me today. CT surg sign off. GLUCOSE METER Collected: 04/03/2018 Status: F Source: [facility] 6:43 AM HEALTH SYSTEM REPOSITORY TYPE CODE TESTS RESULT OUT OF REFERENCE UNITS RANGE LAB GLUBL(LOINC 70-99 mg/dL ) High Glucose Meter 205 Result Comment: RN NOTIFIED Performed By: #### GLMET #### [place] [address] GLUCOSE METER Collected: 04/02/2018 Status: F Source: [facility] 9:25 PM HEALTH SYSTEM REPOSITORY TYPE CODE TESTS RESULT OUT OF REFERENCE UNITS RANGE LAB GLUBL(LOINC 70-99 mg/dL ) High Glucose Meter 218 Result Comment: RN NOTIFIED Performed By: #### GLMET #### [facility] [address] [place] [id number] GLUCOSE METER Collected: 04/02/2018 Status: F Source: [facility] 4:59 PM HEALTH SYSTEM REPOSITORY TYPE CODE TESTS RESULT OUT OF REFERENCE UNITS RANGE LAB GLUBL(LOINC 70-99 mg/dL ) High Glucose Meter 242 Result Comment: RN NOTIFIED Performed By: #### GLMET #### [facility] [address] [place] [address] CHEST 2 VIEWS Observed: 04/02/2018 Status: F Source: [facility] 2:32 PM HEALTH SYSTEM REPOSITORY Performed at [facility] APPROVED BY: LINDA LONG MD EXAMINATION: CHEST RADIOGRAPH (2 VIEW FRONTAL & LATERAL) Clinical History: Pleural effusion MQ: [id number]_5 Comparison: 04/02/2018 at 6:58 AM RESULT: Lines, tubes, and devices: There has been removal of the left-sided chest tube. Previously described trace left pneumothorax is not visualized. Lungs and pleura: Linear opacities at the left lower lobe likely represent atelectasis. There is blunting of left costophrenic angle consistent with a small left effusion. Right lung is clear. Cardiomediastinal silhouette: Normal cardiomediastinal silhouette. Other: No bony abnormalities. IMPRESSION: 1. There has been removal of left-sided chest tube. No pneumothorax visualized. 2. Linear atelectasis in the left lower lobe with persistent small left effusion. GLUCOSE METER Collected: 04/02/2018 Status: F Source: [facility] 11:04 AM HEALTH SYSTEM REPOSITORY TYPE CODE TESTS RESULT OUT OF REFERENCE UNITS RANGE LAB GLUBL(LOINC 70-99 mg/dL ) High Glucose Meter 207 Result Comment: RN NOTIFIED Performed By: #### GLMET #### [facility] [address] [place] [id number] PROGRESS Observed: 04/02/2018 Status: COMPLETED Source: [place] 10:36 AM CLINIC OTHER CAMPUS REPOSITORY O ID: [id number] Author: Fernando Mcwilliams Service: Hospital Medicine Author Type: Physician Type: Progress Notes Filed: 04/02/2018 1:40 PM Note Text: DEPARTMENT OF HOSPITAL MEDICINE PROGRESS NOTE SERVICE DATE: 04/02/2018 SERVICE TIME: 10:36 AM Hospital Medicine/Primary Attending: Fernando Mcwilliams MD NIGHT AND WEEKEND COVERAGE: After 7pm please page [phone] SUBJECTIVE: Stable, no acute events overnight.No fever, cough, shortness of breath, abdominal pain, nausea, or vomiting. OBJECTIVE: PHYSICAL EXAM: BP 113/61 Pulse 85 Temp (Src) 97.9 (Temporal Artery) Resp 18 Ht 5' 8 (1.73m) Wt 269 lb 4.8 oz (122.2kg) SpO2 94% BMI 40.96 kg/(m2). General - NAD, Calm CV - RRR S1 S2 RESP - CTA B/L ABD - soft, NT, ND +BS EXT - no edema MEDICATIONS: Current hospital medications: furosemide 40 mg tab(s) (LASIX) 40 mg ORAL DAILY ampicillin-sulbactam 3 g in NaCl 0.9% 100 mL MB+ (UNASYN) 3 g INTRAVENOUS q 6 H oxyCODONE IR 5-10 mg tab(s) (ROXICODONE) 5-10 mg ORAL q 4 H PRN morphine 4 mg injection 4 mg INTRAVENOUS q [address] 40 mg tab(s) (PROTONIX) 40 mg ORAL BID AC (0600/1600) insulin regular human injection (short acting) (NovoLIN R,HumuLIN R) SUBCUTANEOUS w MEALS AND HS dextrose 40 % 15 g 15 g ORAL PRN glucagon 1 mg injection (GLUCAGEN) 1 mg INTRAMUSCULAR PRN dextrose 50% in water 25 mL syringe 12.5 g INTRAVENOUS PRN prochlorperazine 5 mg injection (COMPAZINE) 5 mg INTRAVENOUS q 6 H PRN DATA: Diagnostic tests reviewed for today's visit: CBC: Recent Labs 04/02/18 0735 WBC 2.35* RBC 2.98* HB 8.3* HCT 26.5* PLT 135* MCV 88.9 MCH 27.9 MPV 9.3 RDW 16.4* Coags: No results for input(s): INR, APTT in the last 24 hours. Invalid input(s): PT BMP: Recent Labs 04/02/18 0735 NA 139 K 3.9 CHLOR 104 CO2 32 BUN 5* CREAT 0.59* GLUC 183* CMP: Recent Labs 04/02/18 0735 NA 139 K 3.9 CHLOR 104 CO2 32 BUN 5* CREAT 0.59* GLUC 183* CA 8.4* ANION 7* Cardiac Enzymes: No results for input(s): CK, MB, CKMB, TROPT in the last 24 hours. Liver Function, Amylase, Lipase: No results for input(s): TPROT, ALB, ALT, AST, ALKPHOS, TBILI, AMYLASE, LIPASE, LACTATE in the last 24 hours. MG/PHOS: No results for input(s): MG, P in the last 24 hours. Renal Panel: Recent Labs 04/02/18 0735 CREAT 0.59* BUN 5* GLUC 183* CA 8.4* CHLOR 104 K 3.9 CO2 32 NA 139 Heme: No results for input(s): RETICP, ABSRETIC, LD, AIDA, FE, TIBC, TRANSFERSAT in the last 24 hours. No results found for: UALBCR Assessment/Plan 1. Strep pneumococcal pneumonia(LLL) ?with left parapneumonic effusion s/p chest tube placement. - Appreciate ID and CT surgery input. - on antibiotics - Unasyn to continue antibiotics till 04/07/18. .May change to Augmentin 875 mg on d/c. - CT removed this AM - Pleural Cx negative to date - Cytology negative - pain control - Likely D/C home in 24 hours ? 2. GI bleeding with EGD evidence of 3 antral ulcers -clean based. No evidence of Lower GI bleeding. Counseled on the need to stop NSAIDs. H.pylori negative on antral biopsy. 3. Acute blood loss anemia from #2. Stable H/H. No further intervention planned. Continue monitoring 4. A-fibrillation - Transient - resolved. 5. DM - stable 6. Peripheral edema - likely non systemic and related to fpc immobility. Improved. Will restart lasix for a few days while inpatient. SIGNATURE: Fernando Mcwilliams MD PATIENT NAME: Joel Matson DATE: April 02, 2018 TIME: 10:36 AM PAGER/CONTACT #: Rui Blue PROCEDURE Observed: 04/02/2018 Status: COMPLETED Source: [place] 9:45 AM CLINIC OTHER CAMPUS REPOSITORY HNO ID: [id number] Author: Alejandro Montelongo Service: Thoracic Surgery Author Type: Physician Type: Procedures Filed: 04/02/2018 11:33 AM Note Text: Left Chest tube removed at bedside stay suture tied down Occlusive dressing applied No complications 2-view CXR @ 14:30 Santos Wen MD 04/02/2018 9:46 AM As discussed. Thanks. BASIC PANEL Collected: 04/02/2018 Status: F Source: [facility] 7:35 AM HEALTH SYSTEM REPOSITORY TYPE CODE TESTS RESULT OUT OF REFERENCE UNITS RANGE LAB NA(LOINC) 136-145 mEq/L Sodium Blood 139 LAB K(LOINC) 3.5-5.1 mEq/L Potassium Blood 3.9 LAB CL(LOINC) 98-107 mEq/L Chloride Blood 104 LAB CO2(LOINC) 21-32 mEq/L CO2 Blood 32 LAB GLU(LOINC) 70-99 mg/dL Glucose High Blood 183 LAB BUN(LOINC) 7-18 mg/dL Low BUN Blood 5 LAB CREA(LOINC 0.67-1.17 mg/dL ) Low Creatinine Blood 0.59 LAB CA(LOINC) 8.5-10.1 mg/dL Low Calcium Blood 8.4 LAB ANGAP(LOIN 8-16 C) Low Anion Gap 7 Performed By: #### P8 #### [place] [address] MDRD GFR Collected: 04/02/2018 Status: F Source: [facility] 7:35 AM HEALTH SYSTEM REPOSITORY TYPE CODE TESTS RESULT OUT OF RANGE REFERENCE UNITS LAB GFRFN(LOINC >60mL/min/1.73m ) 2 eGFR >60 Result Comment: If the patient is , multiply the result by 1.210. Performed By: #### GFR #### [place] [address] HEMOGRAM/DIFF Collected: 04/02/2018 Status: F Source: [facility] 7:35 AM HEALTH SYSTEM REPOSITORY TYPE CODE TESTS RESULT OUT OF REFERENCE UNITS RANGE LAB WBC(LOINC) 4.23-9.07 thou/cmm Low WBC 2.35 LAB RBC(LOINC) 4.63-6.08 mil/cmm Low RBC 2.98 LAB HGB(LOINC) 13.7-17.5 g/dL Low Hgb 8.3 LAB HCT(LOINC) 40.1-51.0 % Low Hct 26.5 LAB MCV(LOINC) 83.2-95.6 fl MCV 88.9 LAB MCH(LOINC) 25.7-32.2 pg MCH 27.9 LAB MCHC(LOINC 32.3-36.5 % ) Low MCHC 31.3 LAB RDW(LOINC) 11.6-14.4 % RDW High 16.4 LAB RDWSD(LOIN 36.1-45.8 fl C) RDW SD High 52.3 LAB PLT(LOINC) 141-365 thou/cmm Low Platelet 135 LAB MPV(LOINC) 8.7-12.0 fl MPV 9.3 LAB SEG(LOINC) % Seg Neutrophil 54.9 LAB IGRE(LOINC % ) Immature Grans 0.40 LAB LYMPH(LOIN % C) Lymphocyte 29.4 LAB MNO(LOINC) % Monocyte 13.6 LAB EOSIN(LOIN % C) Eosinophil 1.3 LAB BASO(LOINC % ) Basophil 0.4 LAB SEGN(LOINC 1.78-5.38 thou/cmm ) Low Abs. Neut (ANC) 1.29 LAB IGAB(LOINC 0.00-0.05 thou/cmm ) Abs Immature Grans 0.01 LAB LYMN(LOINC 0.84-2.85 thou/cmm ) Low Abs. Lymph 0.69 LAB MONON(LOIN 0.30-0.82 thou/cmm C) Abs. Dickinson 0.32 LAB EOSN(LOINC 0.04-0.54 thou/cmm ) Low Abs. Eosin 0.03 LAB BASON(LOIN 0.01-0.08 thou/cmm C) Abs. Baso 0.01 Result Comment: Smear scanned; tech agrees with automated differential Performed By: #### CBCD1 #### [place] [address] CHEST 1 VIEW Observed: 04/02/2018 Status: F Source: [facility] 7:00 AM HEALTH SYSTEM REPOSITORY Performed at [facility] APPROVED BY: ALEX MANRIQUEZ MD EXAM TITLE: PORTABLE AP/PA CHEST X RAY DATE: 04/02/2018 06:58 COMPARISON: CT examination of the chest with contrast as well as x-ray examination dated 04/01/2018. CLINICAL INDICATION/HISTORY: Empyema ENCOUNTER: Not applicable TECHNIQUE: Single portable AP/PA radiograph of the chest RESULT: Lines, tubes, and devices: No significant interval change regarding orientation of left- sided thoracostomy tube with tip overlying the mid aspect of left midlung zone. Lungs and pleura: Mixed interstitial and airspace opacities at the left lower lung zone, possibly representing atelectasis or pneumonia, essentially unchanged. Focal lucency involving the medial aspect of left upper lung zone, corresponding to previously described trace left pneumothorax. No discrete left-sided effusion. Right lung essentially unremarkable. Cardiomediastinal silhouette: Normal cardiomediastinal silhouette. Other: Osseous structures and soft tissues grossly intact. IMPRESSION: No significant interval change regarding left-sided thoracostomy tube. Mixed interstitial and airspace opacities at the left lower lung zone, possibly representing atelectasis or consolidation. Trace left pneumothorax, essentially unchanged. GLUCOSE METER Collected: 04/02/2018 Status: F Source: [facility] 6:48 AM HEALTH SYSTEM REPOSITORY TYPE CODE TESTS RESULT OUT OF REFERENCE UNITS RANGE LAB GLUBL(LOINC 70-99 mg/dL ) High Glucose Meter 197 Result Comment: RN NOTIFIED Performed By: #### GLMET #### [place] [address] NURSING PROG Observed: 04/02/2018 Status: COMPLETED Source: [place] 5:55 AM [facility] REPOSITORY HNO ID: [id number] Author: Og (Rn) INEZ Gan Service: (none) Author Type: Registered Nurse Type: Nursing Progress Note Filed: 04/02/2018 6:39 AM Note Text: Special ops notified of request for assistance with bloodwork. States will put on list for day shift. NURSING PROG Observed: 04/02/2018 Status: COMPLETED Source: [place] 5:47 AM [facility] REPOSITORY HNO ID: [id number] Author: Og CoreasRn) Malik RN Service: (none) Author Type: Registered Nurse Type: Nursing Progress Note Filed: 04/02/2018 5:47 AM Note Text: Special ops paged for assistance with bloodwork. PROGRESS Observed: 04/02/2018 Status: COMPLETED Source: [place] 5:41 AM [facility] REPOSITORY HNO ID: [id number] Author: Alejandro Montelongo Service: Thoracic Surgery Author Type: Physician Type: Progress Notes Filed: 04/02/2018 12:08 PM Note Text: Thoracic Surgery Progress Note SERVICE DATE: 04/02/2018 Subjective SUBJECTIVE: NAEON, slept well last night Denies N/V/CP/SOB Diet: DIET CARBOHYDRATE CONTROLLED Objective OBJECTIVE: Vitals: Temp (24hrs), Av.7 ?C (98 ?F), Min:36.3 ?C (97.3 ?F), Max:36.9 ?C (98.4 ?F) BP 128/74 Pulse 80 Temp 36.9 ?C (98.4 ?F) (Temporal Artery) Resp 16 Ht 172.7 cm (5' 8) Wt 122.2 kg (269 lb 4.8 oz) SpO2 98% BMI 40.95 kg/m? O2 Therapy: Room Air IANDO: Date 04/01/18 07 - 04/02/18 0659 04/02/18 07 - 04/03/18 0659 Shift 7566-0164 5609-3321 0941-0622 24 Hour Total 4975-7534 6699-4717 8752-0432 24 Hour Total I N T A K E PO 420 420 PO 420 420 Shift Total 420 420 O U T P U T Urine 4 3 3 10 Urine Not Saved 4 3 3 10 Chest Tube 90 0 25 115 Chest Tube Output (Chest Tube 03/27/18 1828 Left Lateral Tube #1) 90 0 25 115 # of BMs Number of BMs 1 x 1 x 2 x Shift Total 94 3 28 125 Weight (kg) 122.2 122.2 122.2 122.2 122.2 122.2 122.2 122.2 MEDICATIONS Current Facility-Administered Medications: iv contrast (radiology procedure) INTRAVENOUS DIRECTED PRN furosemide 40 mg tab(s) (LASIX) 40 mg ORAL DAILY ampicillin-sulbactam 3 g in NaCl 0.9% 100 mL MB+ (UNASYN) 3 g INTRAVENOUS q 6 H oxyCODONE IR 5-10 mg tab(s) (ROXICODONE) 5-10 mg ORAL q 4 H PRN morphine 4 mg injection 4 mg INTRAVENOUS q [address] 40 mg tab(s) (PROTONIX) 40 mg ORAL BID AC (0600/1600) insulin regular human injection (short acting) (NovoLIN R,HumuLIN R) SUBCUTANEOUS w MEALS AND HS dextrose 40 % 15 g 15 g ORAL PRN Or glucagon 1 mg injection (GLUCAGEN) 1 mg INTRAMUSCULAR PRN Or dextrose 50% in water 25 mL syringe 12.5 g INTRAVENOUS PRN prochlorperazine 5 mg injection (COMPAZINE) 5 mg INTRAVENOUS q 6 H PRN Labs: Recent Labs 03/31/18 0726 NA 136 K 3.9 CHLOR 103 CO2 28 BUN 5* CREAT 0.50* GLUC 171* CA 8.5 P 3.3 ALB 2.2* WBC 3.23* HB 8.7* HCT 28.3* PLT 107* Exam: GENERAL: No distress, Alert NEURO: AANDOx3, CN II-XII grossly intact HEENT: normocephalic, atraumatic LUNGS: Unlabored breathing O2 Therapy: Room Air, L CT -20 sxn, serous, no leak CARDIAC: Regular rate and rhythm as above ABDOMEN: Soft, non-tender, non-distended EXTREMITIES: FLORES, No deformities, No edema SKIN: Skin color, texture, turgor normal, No rashes or lesions ASSESSMENT AND PLAN: Active Hospital Problems Diagnosis Date Noted - Obstructive sleep apnea 03/26/2018 Chronic - Diabetes ([facility]) 03/26/2018 Chronic - Nicotine use disorder, F17.2 03/25/2018 - Obesity, Class III, BMI >= 40 03/25/2018 - Malnutrition of moderate degree ([facility]) 03/25/2018 - Anemia 03/24/2018 - Atrial fibrillation with RVR ([facility]) 03/24/2018 - Pulmonary embolism ([facility]) 03/24/2018 - GI bleed 03/24/2018 Overview Note: Added automatically from request for surgery [id number] 52 year old male with Left Parapneumonic Effusion s/p CT on 03/27, PE/DVT and DVT s/p EGD with PUD and Colonoscopy ? - cont Left CT to -20 sxn --> possible dc today - daily CXR stable - Pleural Cx negative to date - Cytology negative - Unasyn?per ID - Ambulate - IS - pain control ? Assessment and plan discussed with attending: Dr. Montelongo SIGNATURE: Santos Wen MD PATIENT NAME: Joel Matson DATE: April 02, 2018 TIME: 5:41 AM Pager: [phone] Patient seen. CXR reviewed and d/w resident. P-remove chest tube, F/U cxr then sign off. GLUCOSE METER Collected: 04/01/2018 Status: F Source: [facility] 9:15 PM HEALTH SYSTEM REPOSITORY TYPE CODE TESTS RESULT OUT OF REFERENCE UNITS RANGE LAB GLUBL(LOINC 70-99 mg/dL ) High Glucose Meter 202 Result Comment: RN NOTIFIED Performed By: #### GLMET #### [facility] [address] [place], [place] [address] GLUCOSE METER Collected: 04/01/2018 Status: F Source: [facility] 5:20 PM HEALTH SYSTEM REPOSITORY TYPE CODE TESTS RESULT OUT OF REFERENCE UNITS RANGE LAB GLUBL(LOINC 70-99 mg/dL ) High Glucose Meter 218 Result Comment: RN NOTIFIED Performed By: #### GLMET #### [facility] [address] [place], [place] [address] PROGRESS Observed: 04/01/2018 Status: COMPLETED Source: [place] 12:23 PM CLINIC OTHER CAMPUS REPOSITORY HNO ID: [id number] Author: Fernando Mcwilliams Service: Hospital Medicine Author Type: Physician Type: Progress Notes Filed: 04/01/2018 2:30 PM Note Text: DEPARTMENT OF HOSPITAL MEDICINE PROGRESS NOTE SERVICE DATE: 04/01/2018 SERVICE TIME: 12:23 PM Hospital Medicine/Primary Attending: Fernando Mcwilliams MD NIGHT AND WEEKEND COVERAGE: After 7pm please page [phone] SUBJECTIVE: Stable, no acute events overnight. OBJECTIVE: PHYSICAL EXAM: BP 105/67 Pulse 82 Temp (Src) 98.2 (Temporal Artery) Resp 14 Ht 5' 8 (1.73m) Wt 269 lb 4.8 oz (122.2kg) SpO2 96% BMI 40.96 kg/(m2). General - NAD, Calm CV - RRR S1 S2, No M/R/G RESP - CTA B/L, Chest tube in place and drain with serous fluid in it ABD - soft, NT, ND +BS EXT - Pitting edema MEDICATIONS: Current hospital medications: iv contrast (radiology procedure) INTRAVENOUS DIRECTED PRN furosemide 40 mg tab(s) (LASIX) 40 mg ORAL DAILY ampicillin-sulbactam 3 g in NaCl 0.9% 100 mL MB+ (UNASYN) 3 g INTRAVENOUS q 6 H oxyCODONE IR 5-10 mg tab(s) (ROXICODONE) 5-10 mg ORAL q 4 H PRN morphine 4 mg injection 4 mg INTRAVENOUS q [address] 40 mg tab(s) (PROTONIX) 40 mg ORAL BID AC (0600/1600) insulin regular human injection (short acting) (NovoLIN R,HumuLIN R) SUBCUTANEOUS w MEALS AND HS dextrose 40 % 15 g 15 g ORAL PRN glucagon 1 mg injection (GLUCAGEN) 1 mg INTRAMUSCULAR PRN dextrose 50% in water 25 mL syringe 12.5 g INTRAVENOUS PRN prochlorperazine 5 mg injection (COMPAZINE) 5 mg INTRAVENOUS q 6 H PRN DATA: Diagnostic tests reviewed for today's visit: CBC: No results for input(s): WBC, RBC, HB, HCT, PLT, MCV, MCH, MPV, RDW in the last 24 hours. Coags: No results for input(s): INR, APTT in the last 24 hours. Invalid input(s): PT BMP: No results for input(s): NA, K, CHLOR, CO2, BUN, CREAT, GLUC in the last 24 hours. CMP: No results for input(s): NA, K, CHLOR, CO2, BUN, CREAT, GLUC, TPROT, CA, MG, ALBUMIN, TBILI, ALKPHOS, ALT, AST, ANION in the last 24 hours. Cardiac Enzymes: No results for input(s): CK, MB, CKMB, TROPT in the last 24 hours. Liver Function, Amylase, Lipase: No results for input(s): TPROT, ALB, ALT, AST, ALKPHOS, TBILI, AMYLASE, LIPASE, LACTATE in the last 24 hours. MG/PHOS: No results for input(s): MG, P in the last 24 hours. Renal Panel: No results for input(s): ALBUMIN, CREAT, BUN, GLUC, CA, P, CHLOR, K, CO2, NA in the last 24 hours. Heme: No results for input(s): RETICP, ABSRETIC, LD, AIDA, FE, TIBC, TRANSFERSAT in the last 24 hours. No results found for: UALBCR Assessment/Plan 1. Strep pneumococcal pneumonia(LLL) with left parapneumonic effusion s/p chest tube placement. - Appreciate ID and CT surgery input. - on antibiotics - Unasyn to continue antibiotics till 04/07/18. .May change to Augmentin 875 mg on d/c. - cont Left CT, daily CXR - follow up CT chest today 2. GI bleeding with EGD evidence of 3 antral ulcers -clean based. No evidence of Lower GI bleeding. Counseled on the need to stop NSAIDs. H.pylori negative on antral biopsy. 3. Acute blood loss anemia from #2. Stable H/H. No further intervention planned. Continue monitoring 4. A-fibrillation - Transient - resolved. 5. DM - stable 6. 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 Improved. Will restart lasix for a few days while inpatient. 7. F/up cytology from pleural fluid- still pending. ? ?Prophylaxis: VTE - No. Contraindicated. IVF placed PPI - Yes Code Status: full Disposition: home SIGNATURE: Fernando Mcwilliams MD PATIENT NAME: Joel Matson DATE: April 01, 2018 TIME: 12:23 PM PAGER/CONTACT #: Rui Blue GLUCOSE METER Collected: 04/01/2018 Status: F Source: [facility] 11:38 AM HEALTH SYSTEM REPOSITORY TYPE CODE TESTS RESULT OUT OF REFERENCE UNITS RANGE LAB GLUBL(LOINC 70-99 mg/dL ) High Glucose Meter 187 Result Comment: RN NOTIFIED Performed By: #### GLMET #### [place] [address] CT CHEST WITH Observed: 04/01/2018 Status: F Source: [facility] CONTRAST 8:53 AM HEALTH SYSTEM REPOSITORY Performed at [facility] APPROVED BY: Franklin Winn MD EXAMINATION: CHEST CT WITH CONTRAST CLINICAL HISTORY: Pleural effusion Technique: Spiral CT acquisition of the chest from the thoracic inlet to the upper abdomen following IV contrast. MQ: CTCWR_5 Contrast: 50 mL IV Omnipaque 300 CT Dose-Length Product: 461 mGy*cm CT Dose Reduction Employed: 3. mAs or kVp was manually adjusted based on either the patient size or age. Comparison: Chest radiograph from earlier today RESULT: Limitations: None. Lines, tubes, and devices: None. Lung parenchyma and pleura: There is a trace left-sided pneumothorax without tension features. A posterior left-sided thoracostomy tube terminates at about the level of the left hilum. At the left elba g base, there is subsegmental atelectasis and there is a small pleural effusion. At the right lung, there is a trace pleural effusion. Right lung is otherwise clear of active infiltrates. There is no endobronchial mass. Thoracic inlet, heart, and mediastinum: No lymphadenopathy in the axillary, mediastinal, or hilar regions. The thoracic aorta and main pulmonary artery are normal in caliber. The cardiac chambers are n ormal in size. No coronary artery atherosclerotic calcifications are noted, although the study is not optimized for coronary assessment. No pericardial effusion or thickening. Bones and soft tissues: No destructive bone lesion. Chest wall is unremarkable. Upper abdomen: The tip of what appears to be an IVC filter is seen. Otherwise, the visualized portions of the upper abdomen appear normal. IMPRESSION: Left-sided thoracostomy tube is in place. There is a trace left pneumothorax. Left basilar small pleural effusion and subsegmental atelectasis. Trace right pleural effusion. CHEST 1 VIEW Observed: 04/01/2018 Status: F Source: [facility] 7:45 AM HEALTH SYSTEM REPOSITORY Performed at [facility] APPROVED BY: Franklin Winn MD EXAM TITLE: CHEST 1 VIEW DATE: 04/01/2018 07:40 INDICATION: Follow-up for left-sided thoracostomy tube COMPARISON: 03/31/2018 FINDINGS: The left-sided thoracostomy tube is stable in position. There is some adjacent opacity suggesting a combination of subsegmental atelectasis and small pleural effusion. No visible pneumothora x. Right lung is relatively clear. Heart is not enlarged. Osseous structures are intact. IMPRESSION: Stable appearance. GLUCOSE METER Collected: 04/01/2018 Status: F Source: [facility] 6:55 AM HEALTH SYSTEM REPOSITORY TYPE CODE TESTS RESULT OUT OF REFERENCE UNITS RANGE LAB GLUBL(LOINC 70-99 mg/dL ) High Glucose Meter 203 Result Comment: RN NOTIFIED Performed By: #### GLMET #### [place] [id number] PROGRESS Observed: 04/01/2018 Status: COMPLETED Source: [place] 6:39 AM CLINIC OTHER CAMPUS REPOSITORY HNO ID: [id number] Author: Alejandro Montelongo Service: Thoracic Surgery Author Type: Physician Type: Progress Notes Filed: 04/01/2018 9:21 AM Note Text: Thoracic Surgery Progress Note SERVICE DATE: 04/01/2018 Subjective SUBJECTIVE: NAEON, left chest soreness from tube Denies N/V/CP/SOB Diet: DIET CARBOHYDRATE CONTROLLED Objective OBJECTIVE: Vitals: Temp (24hrs), Av.7 ?C (98.1 ?F), Min:36.5 ?C (97.7 ?F), Max:36.9 ?C (98.4 ?F) BP 118/75 Pulse 80 Temp 36.5 ?C (97.7 ?F) Resp 16 Ht 172.7 cm (5' 8) Wt 122.2 kg (269 lb 4.8 oz) SpO2 98% BMI 40.95 kg/m? O2 Therapy: Continuous Positive Airway Pressure IANDO: Date 03/31/18699 - 04/01/18 0659 04/01/18699 - 04/02/18 0659 Shift 2272-9484 1814-2784 8809-4228 24 Hour Total 2507-4736 7450-5357 6923-9717 24 Hour Total I N T A K E PO 480 360 840 PO 480 360 840 IV 100 100 200 400 Ampicillin/Sulbactam (Unasyn) IV 100 100 200 400 Shift Total 580 124 641 5913 O U T P U T Urine 2 3 2 7 Urine Not Saved 2 3 2 7 Chest Tube 30 30 60 Chest Tube Output (Chest Tube 03/27/18 1828 Left Lateral Tube #1) 30 30 60 # of BMs Number of BMs 2 x 2 x Shift Total 32 3 32 67 Weight (kg) 122.2 122.2 122.2 122.2 122.2 122.2 122.2 122.2 MEDICATIONS Current Facility-Administered Medications: furosemide 40 mg tab(s) (LASIX) 40 mg ORAL DAILY ampicillin-sulbactam 3 g in NaCl 0.9% 100 mL MB+ (UNASYN) 3 g INTRAVENOUS q 6 H oxyCODONE IR 5-10 mg tab(s) (ROXICODONE) 5-10 mg ORAL q 4 H PRN morphine 4 mg injection 4 mg INTRAVENOUS q [address] 40 mg tab(s) (PROTONIX) 40 mg ORAL BID AC (0600/1600) insulin regular human injection (short acting) (NovoLIN R,HumuLIN R) SUBCUTANEOUS w MEALS AND HS dextrose 40 % 15 g 15 g ORAL PRN Or glucagon 1 mg injection (GLUCAGEN) 1 mg INTRAMUSCULAR PRN Or dextrose 50% in water 25 mL syringe 12.5 g INTRAVENOUS PRN prochlorperazine 5 mg injection (COMPAZINE) 5 mg INTRAVENOUS q 6 H PRN Labs: Recent Labs 03/31/18 0726 03/30/18 0425 NA 136 139 K 3.9 3.9 CHLOR 103 108* CO2 28 28 BUN 5* 4* CREAT 0.50* 0.52* GLUC 171* 163* CA 8.5 8.3* P 3.3 2.9 ALB 2.2* 2.3* WBC 3.23* 3.85* HB 8.7* 8.1* HCT 28.3* 25.9* PLT 107* 121* Exam: GENERAL: No distress, Alert NEURO: AANDOx3, CN II-XII grossly intact HEENT: normocephalic, atraumatic LUNGS: Unlabored breathing O2 Therapy: Continuous Positive Airway Pressure, L CT -40 sxn, serous, no leak CARDIAC: Regular rate and rhythm as above ABDOMEN: Soft, non-tender, non-distended EXTREMITIES: FLORES, No deformities, No edema SKIN: Skin color, texture, turgor normal, No rashes or lesions ASSESSMENT AND PLAN: Active Hospital Problems Diagnosis Date Noted - Obstructive sleep apnea 03/26/2018 Chronic - Diabetes ([facility]) 03/26/2018 Chronic - Nicotine use disorder, F17.2 03/25/2018 - Obesity, Class III, BMI >= 40 03/25/2018 - Malnutrition of moderate degree ([facility]) 03/25/2018 - Anemia 03/24/2018 - Atrial fibrillation with RVR ([facility]) 03/24/2018 - Pulmonary embolism ([facility] [facility] 03/24/2018 - GI bleed 03/24/2018 Overview Note: Added automatically from request for surgery [id number] 52 year old male with Left Parapneumonic Effusion s/p CT on 03/27, PE/DVT and DVT s/p EGD with PUD and Colonoscopy ? - cont Left CT to -40 sxn - daily CXR largely unchanged - will get CT chest today - Pleural Cx negative to date - Cytology negative - Unasyn?per ID - Ambulate - IS - pain control ? Assessment and plan discussed with attending: Dr. Montelongo SIGNATURE: Santos Wen MD PATIENT NAME: Joel Matson DATE: April 01, 2018 TIME: 6:39 AM Pager: [phone] Patient seen, cxr, and ct reviewed. Chest tube has done fairly decent job and rest should be handled by patient. P-dec suction and possibly remove tomorrow depending on multiple factors. GLUCOSE METER Collected: 03/31/2018 Status: F Source: [facility] 9:27 PM HEALTH SYSTEM REPOSITORY TYPE CODE TESTS RESULT OUT OF REFERENCE UNITS RANGE LAB GLUBL(LOINC 70-99 mg/dL ) High Glucose Meter 186 Result Comment: RN NOTIFIED Performed By: #### GLMET #### [facility] [address] [place], [place] [address] GLUCOSE METER Collected: 03/31/2018 Status: F Source: [facility] 4:32 PM HEALTH SYSTEM REPOSITORY TYPE CODE TESTS RESULT OUT OF REFERENCE UNITS RANGE LAB GLUBL(LOINC 70-99 mg/dL ) High Glucose Meter 201 Result Comment: RN NOTIFIED Performed By: #### GLMET #### [facility] [address] [place], [place] [address] THERAPY NT Observed: 03/31/2018 Status: COMPLETED Source: [place] 12:00 PM CLINIC OTHER CAMPUS REPOSITORY HNO ID: [id number] Author: Holli (Pt) Toney Service: Physical Therapy Author Type: Physical Therapist Type: Therapy (PT/OT/Speech/Resp) Filed: 03/31/2018 12:05 PM Note Text: Physical Therapy Treatment SERVICE DATE: 03/31/2018 SERVICE TIME: 1130 to 1140 ROOM: [id number] Recommended Discharge Disposition: Home Anticipated Discharge Needs: Physical Assist at Home Physical Assist at Home for: Shopping;Transportation PT Recommendations to Nursing: Ambulate without device;To bathroom;In halls;OOB for Meals;With assist of 1 person PT 6 Clicks Score: 21 Precaution/Activity Restriction Comments: L chest tube Isolation Type: None ASSESSMENT : Patient presents already sitting up in his chair. He states he is feeling better today and is eager to walk. The patient is demonstrating improved endurance and strength with all mobility and transfers and gait. He will be safe for home at discharge. Patient Disposition at Start of Session: OOB in Chair Patient Disposition at End of Session: OOB in Chair Tolerated Full Session Physical Therapy Problem List: Education Deficit;Functional Mobility Impairment Patient /Caregiver Goals: Go Home Goals for Plan of Care: Rolling with: Independent Transfer supine to/from sit with: Independent Transfer sit to/from stand with: Independent Ambulate with: Independent Distance: 50 Ambulate up and down steps with: Independent Number of steps: 10 Device: Rail Progress Toward Goals: Progressing as expected Rehab Potential: Excellent PLAN: Treatment Frequency (times per week): 5 (2-5) Current admission Treatment Interventions: Education;Functional Mobility Training Plan of Care developed with: Patient TREATMENT INTERVENTIONS: Therapy Diagnosis: General symptoms and signs-other Interventions Provided: Therapeutic Exercise (86662) Therapeutic Exercise (00074) Treatment Minutes: 10 1 unit Skilled Intervention(s): Education in the importance of getting up and walking with staff and family assistance at least 3 times per day and sitting up in the chair for all meals. Encouraged to walk further today than he did on previous days. Total Timed Code Treatment Minutes: 10 Total Treatment Time (minutes): 10 SUBJECTIVE: Current Hospital Course: Chart reviewed and no significant medical updates relevant to therapy were noted Reason for Physical Therapy Consult : Eval Relevant Past Medical History: DM, pnuemonia, low Hgb Patient Report: Only having pain when the chest tube site is touched. Home Environment Patient Lives With: Significant Other ( and son ) Assistance Available: 24 Hour (family works opposite shifts) Number Of Stairs To Bed/Bath: flight Stairs to Bed/Bath with: Unilateral Rail Prior Functional Level: Within Functional Limits (He was able to work and do yard work) OBJECTIVE: CURRENT FUNCTIONAL STATUS: Current Functional Mobility Assist Level Additional Information Rolling Supine to Sit Sit to Supine Scooting Sit to Stand Supervision Stand to Sit Supervision Bed to Chair Toilet/Commode Gait Supervision Gait Device: Other: See Comment (occassionally using hand rail) Gait Distance (feet): 200 x 2 Stairs Curb Step Car Transfer General Gait Deviations: Viviane decreased Please see discipline specific clinical documentation flowsheet for complete details for this therapy evaluation/treatment. SIGNATURE: Holli Ziegler PT PATIENT NAME: Joel Matson DATE: March 31, 2018 TIME: 12:00 PM PAGER/CONTACT #: [phone] GLUCOSE METER Collected: 03/31/2018 Status: F Source: [facility] 11:53 AM HEALTH SYSTEM REPOSITORY TYPE CODE TESTS RESULT OUT OF REFERENCE UNITS RANGE LAB GLUBL(LOINC 70-99 mg/dL ) High Glucose Meter 253 Result Comment: RN NOTIFIED Performed By: #### GLMET #### [place] [address] PROGRESS Observed: 03/31/2018 Status: COMPLETED Source: [place] 11:33 AM CLINIC OTHER CAMPUS REPOSITORY HNO ID: [id number] Author: John Hernandez III Service: Infectious Disease Author Type: Physician Type: Progress Notes Filed: 03/31/2018 12:20 PM Note Text: INTERNAL MEDICINE CONSULT PROGRESS NOTE SERVICE DATE: 03/31/2018 SERVICE TIME: 11:33 AM CONSULTING SERVICE: Internal Medicine Subjective INTERVAL HISTORY OF PRESENT ILLNESS: Patient doing better. Slight pain at the chest tube insertion side. Had TPA yesterday. Current Facility-Administered Medications: furosemide 40 mg tab(s) (LASIX) 40 mg ORAL DAILY ampicillin-sulbactam 3 g in NaCl 0.9% 100 mL MB+ (UNASYN) 3 g INTRAVENOUS q 6 H oxyCODONE IR 5-10 mg tab(s) (ROXICODONE) 5-10 mg ORAL q 4 H PRN morphine 4 mg injection 4 mg INTRAVENOUS q [address] 40 mg tab(s) (PROTONIX) 40 mg ORAL BID AC (0600/1600) insulin regular human injection (short acting) (NovoLIN R,HumuLIN R) SUBCUTANEOUS w MEALS AND HS dextrose 40 % 15 g 15 g ORAL PRN Or glucagon 1 mg injection (GLUCAGEN) 1 mg INTRAMUSCULAR PRN Or dextrose 50% in water 25 mL syringe 12.5 g INTRAVENOUS PRN prochlorperazine 5 mg injection (COMPAZINE) 5 mg INTRAVENOUS q 6 H PRN Objective PHYSICAL EXAM: Patient Vitals for the past 24 hrs: BP Temp Temp src Pulse Resp SpO2 Weight 03/31/18 0700 124/64 36.7 ?C (98.1 ?F) Oral 79 18 93 % - 03/31/18 0600 - - - - - - 122.2 kg (269 lb 4.8 oz) 03/31/18 0451 117/64 36.4 ?C (97.5 ?F) Oral 81 18 93 % - 03/30/18 1900 112/55 36.1 ?C (97 ?F) Temporal Art 93 18 96 % - 03/30/18 1500 122/60 36 ?C (96.8 ?F) Temporal Art 78 18 98 % - Body mass index is 40.95 kg/m?. GENERAL: Alert, no distress, cooperative SKIN: Skin color, texture, turgor normal. No rashes or lesions. OROPHARYNX: Lips, mucosa, and tongue are normal.Teeth and gums, normal. Oropharynx normal. NECK: No jugulovenous distention, No carotid bruits, Carotid pulse normal contour, Supple LUNGS: Lungs clear to auscultation. Good diaphragmatic excursion. Chest tube in place. CARDIAC: Normal S1 and S2; no rubs, murmurs, or gallops ABDOMEN: Abdomen soft, non-tender, BS normal, No masses or organomegaly EXTREMITIES: Extremities normal, no deformities, edema, clubbing or skin discoloration. Good capillary refill., No ulcers NEURO: Alert, oriented X 3, Gait normal. Non-focal. Reflexes normal and symmetric. Sensation grossly intact., Cranial nerves II-XII intact PULSES: 2+ radial, 2+ carotid DATA: Diagnostic tests reviewed for today's visi Component Latest Ref Rng AND Units 03/29/2018 03/30/2018 03/31/2018 WBC 4.23 - 9.07 thou/cmm 3.38 (L) 3.85 (L) 3.23 (L) RBC 4.63 - 6.08 mil/cmm 2.72 (L) 2.83 (L) 3.06 (L) HGB 13.7 - 17.5 g/dL 7.8 (L) 8.1 (L) 8.7 (L) Hematocrit 40.1 - 51.0 % 25.1 (L) 25.9 (L) 28.3 (L) MCV 83.2 - 95.6 fl 92.3 91.5 92.5 MCH 25.7 - 32.2 pg 28.7 28.6 28.4 MCHC 32.3 - 36.5 % 31.1 (L) 31.3 (L) 30.7 (L) RDW 11.6 - 14.4 % 19.9 (H) 18.2 (H) 17.1 (H) RDW-SD 36.1 - 45.8 fl 63.4 (H) 59.1 (H) 56.1 (H) Platelet Count 141 - 365 thou/cmm 105 (L) 121 (L) 107 (L) MPV 8.7 - 12.0 fl 9.4 9.6 10.7 Seg Neutrophil % 53.8 54.3 57.6 Immature Grans % 0.90 0.50 0.60 Lymphocyte % 29.9 31.7 26.9 Monocyte % 11.8 10.1 11.8 Eosinophil % 3.3 2.9 2.8 Basophil % 0.3 0.5 0.3 Abs. Neut(Anc) 1.78 - 5.38 thou/cmm 1.82 2.09 1.86 Immature Grans # 0.00 - 0.05 thou/cmm 0.03 0.02 0.02 Abs. Lymph 0.84 - 2.85 thou/cmm 1.01 1.22 0.87 Abs. Dickinson 0.30 - 0.82 thou/cmm 0.40 0.39 0.38 Abs. Eosin 0.04 - 0.54 thou/cmm 0.11 0.11 0.09 Abs. Baso 0.01 - 0.08 thou/cmm 0.01 0.02 0.01 Sodium 136 - 145 mEq/L 142 139 136 Potassium 3.5 - 5.1 mEq/L 3.6 3.9 3.9 Chloride 98 - 107 mEq/L 111 (H) 108 (H) 103 CO2 21 - 32 mEq/L 26 28 28 Glucose 70 - 99 mg/dL 188 (H) 163 (H) 171 (H) BUN 7 - 18 mg/dL 6 (L) 4 (L) 5 (L) Creatinine 0.67 - 1.17 mg/dL 0.61 (L) 0.52 (L) 0.50 (L) Calcium 8.5 - 10.1 mg/dL 8.0 (L) 8.3 (L) 8.5 Albumin 3.4 - 5.0 g/dL 1.8 (L) 2.3 (L) 2.2 (L) Phosphorus 2.5 - 4.9 mg/dL 2.4 (L) 2.9 3.3 eGFR >60mL/min/1.73m2 >60 Component Latest Ref Rng AND Units 03/27/2018 03/27/2018 6:30 PM 6:30 PM Specimen Type Pleural Pleural Appearance Bloody Body Fluid Color Sveta RBC, Body Fluid 0 /cmm 18,400 Nucleated Cells, Body Fluid 0 /cmm 167 Segs, Body Fluid % 19 Lymphs, Body Fluid % 53 Monos, Body Fluid % 16 Others, Body Fluid % 12 Body Fluid Interp See below Interp By See below Amylase, Body Fluid U/L 21 Glucose, Body Fluid mg/dL 133 LD,Body Fluid U/L 217 pH, Body Fluid 7.680 Protein, Body Fluid g/dl 1.7 CXR: showing improvement. Impression/Recommendations Active Problems: ? 1. Pneumococcal pneumonia in setting of loculated left pleural effusion- fluid seems to be hemothorax rather than empyema so shorter course of therapy (if was empyema then would do 4-6 weeks) -Continue unasyn for now with transition to augmentin 875 BID at discharge or if current IV fails- stop date=04/07 -f/u cytology of pleural fluid - Had TPA injected in the chest tube yesterday. ? ? 2. Severe anemia, attributed to GI bleeding. - GI signed off. Will do capsule endoscopy if bleeding recurs. ? 3. History of testicular cancer, treated with resection and radiation therapy. ? ? 4. Diabetes mellitus. ? 5. Atrial fibrillation. -off amio ? ? SIGNATURE: Shruthi Carmichael MD PATIENT NAME: Joel Matson DATE: March 31, 2018 TIME: 11:33 AM PAGER/CONTACT #: [phone] I saw and evaluated the patient. Discussed with the resident and agree with resident's findings and plan as documented in the resident's note with above addition in bold. Continue Unasyn for pneumonia- change to oral augmentin 875 BID at discharge or if IV fails- stop =04/07 Will sign off, please call with further questions. SIGNATURE: John Hernandez III, MD PATIENT NAME: Joel Matson DATE: March 31, 2018 TIME: 12:20 PM PAGER/CONTACT #: [phone] PROGRESS Observed: 03/31/2018 Status: COMPLETED Source: [place] 10:12 AM [facility] OTHER CAMPUS REPOSITORY O ID: [id number] Author: Delgado Clements Service: Hospital Medicine Author Type: Physician Type: Progress Notes Filed: 03/31/2018 10:44 AM Note Text: Hospital Medicine Progress Note Patient Name: Joel Matson Admission Date: 03/24/2018 Reason For Admission: Pneumonia IMPRESSION AND PLAN: Active Hospital Problems Diagnosis - Obstructive sleep apnea - Diabetes (HCC) - Nicotine use disorder, F17.2 - Obesity, Class III, BMI >= 40 - Malnutrition of moderate degree ([facility]) - Anemia - Atrial fibrillation with RVR ([facility]) - Pulmonary embolism ([facility]) - GI bleed Added automatically from request for surgery [id number] 1. Strep pneumococcal pneumonia([facility]) with left parapneumonic effusion s/p chest tube placement. Pt on antibiotics - Unasyn. Appreciate ID input. To continue antibiotics till 04/07/18. May change to Augmentin 875 mg on d/c. 2. GI bleeding with EGD evidence of 3 antral ulcers -clean based. No evidence of Lower GI bleeding. Counseled on the need to stop NSAIDs. H.pylori negative on antral biopsy. 3. Acute blood loss anemia from #2. Stable H/H. No further intervention planned. Continue monitoring 4. A-fibrillation - Transient - resolved. 5. DM - stable 6. 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 Improved. Will restart lasix for a few days while inpatient. 7. F/up cytology from pleural fluid- still pending. Patient Checklist Prophylaxis: VTE - No. Contraindicated. IVF placed PPI - Yes Code Status: full Disposition: home Delgado Clements MD Interval History: NO issues overnight Pain better controlled Temp Av.3 ?C (97.3 ?F) Min: 36 ?C (96.8 ?F) Max: 36.7 ?C (98.1 ?F) Pulse Av.8 Min: 78 Max: 93 No Data Recorded Cuff BP Min: 112/55 Max: 128/60 Pain Score: 4/10 MEDICATIONS: empagliflozin (JARDIANCE) 25 mg tablet Take 25 mg by mouth once daily. insulin degludec-liraglutide (XULTOPHY) 100 unit-3.6 mg/mL Inject 50 Units subcutaneously once daily. Do not mix with other insulins. testosterone (ANDROGEL) 20.25 mg/1.25 gram (1.62 %) glpm Apply 2 pumps as directed once daily. metFORMIN (GLUCOPHAGE) 1,000 mg tablet Take 1,000 mg by mouth twice daily with meals. linagliptin (TRADJENTA) 5 mg tab Take 1 tablet by mouth once daily. rosuvastatin (CRESTOR) 40 mg tablet Take 40 mg by mouth daily at bedtime. losartan (COZAAR) 100 mg tablet Take 100 mg by mouth once daily. diclofenac, EC, (VOLTAREN) 50 mg EC tablet Take 50 mg by mouth twice daily. With food baclofen (LIORESAL) 10 mg tablet Take 10 mg by mouth daily at bedtime. gabapentin (NEURONTIN) 400 mg capsule Take 400 mg by mouth three times daily. escitalopram oxalate (LEXAPRO) 10 mg tablet Take 10 mg by mouth once daily. albuterol HFA (VENTOLIN HFA) 90 mcg/actuation inhaler Inhale 2 Puffs as instructed every 4 hours as needed for Wheezing/Shortness of Breath. Current hospital medications: furosemide 40 mg tab(s) (LASIX) 40 mg ORAL DAILY ampicillin-sulbactam 3 g in NaCl 0.9% 100 mL MB+ (UNASYN) 3 g INTRAVENOUS q 6 H oxyCODONE IR 5-10 mg tab(s) (ROXICODONE) 5-10 mg ORAL q 4 H PRN morphine 4 mg injection 4 mg INTRAVENOUS q [address] 40 mg tab(s) (PROTONIX) 40 mg ORAL BID AC (0600/1600) insulin regular human injection (short acting) (NovoLIN R,HumuLIN R) SUBCUTANEOUS w MEALS AND HS dextrose 40 % 15 g 15 g ORAL PRN glucagon 1 mg injection (GLUCAGEN) 1 mg INTRAMUSCULAR PRN dextrose 50% in water 25 mL syringe 12.5 g INTRAVENOUS PRN prochlorperazine 5 mg injection (COMPAZINE) 5 mg INTRAVENOUS q 6 H PRN PHYSICAL EXAM: BP 124/64 Pulse 79 Temp 36.7 ?C (98.1 ?F) (Oral) Resp 18 Ht 172.7 cm (5' 8) Wt 122.2 kg (269 lb 4.8 oz) SpO2 93% BMI 40.95 kg/m? PHYSICAL EXAMINATION: General appearance: Middle aged man, alert, in no acute distress. Skin: Skin color, texture, turgor normal, no suspicious rashes or lesions Lungs: Lungs clear to auscultation. No wheezing, rhonchi, rales, non labored. Chest tube drain with serous fluid in it. Heart: RRR, normal s1s2, no murmurs Abdomen: Abdomen soft, non-tender. Bowel sounds normal. No masses, Extremities: 3+ pitting pedal edema to the knees improving. Improving edema if the left UE as well Lab data: CBC: Recent Labs 03/31/18 0726 03/30/18 0425 03/29/18 1449 03/29/18 0245 03/28/18 1410 03/28/18 0318 03/27/18 1420 03/27/18 0150 03/26/18 0200 03/25/18 0210 03/24/18 1345 WBC 3.23* 3.85* -- 3.38* -- 3.51* -- 4.35 -- 6.14 -- 9.23* -- 8.91 HB 8.7* 8.1* 7.7* 7.8* 7.7* 7.3* 7.1* 7.5* < > 7.5* < > 7.2* < > 4.7* HCT 28.3* 25.9* -- 25.1* -- 23.1* -- 23.4* -- 23.0* -- 21.3* -- 15.3* PLT 107* 121* -- 105* -- 75* -- 101* -- 107* -- 116* -- 146 MCV 92.5 91.5 -- 92.3 -- 92.0 -- 92.1 -- 90.2 -- 86.9 -- 94.4 < > = values in this interval not displayed. COAG: Recent Labs 03/27/18 0150 03/24/18 1600 APTT -- 19.1* INR 1.00 -- BMP: Recent Labs 03/31/18 0726 03/30/18 0425 03/29/18 0245 03/28/18 0318 03/27/18 0150 03/26/18 0200 03/25/18 0210 03/24/18 1345 GLUC 171* 163* 188* 121* 162* 189* 207* 310* NA 136 139 142 141 139 139 139 137 K 3.9 3.9 3.6 3.7 3.6 3.2* 3.5 3.8 CHLOR 103 108* 111* 112* 112* 108* 108* 105 CO2 28 28 26 23 23 27 26 27 ANION -- -- -- 10 8 7* 9 9 BUN 5* 4* 6* 4* 7 13 18 15 CREAT 0.50* 0.52* 0.61* 0.54* 0.43* 0.53* 0.53* 0.52* CHEM: Recent Labs 03/31/18 0726 03/30/18 0425 03/29/18 0245 03/28/18 0318 03/27/18 0150 03/26/18 0200 03/25/18 0210 03/24/18 1400 03/24/18 1345 ALB 2.2* 2.3* 1.8* -- -- -- -- 1.7* -- TPROT -- -- -- -- -- -- -- 4.8* -- CA 8.5 8.3* 8.0* 7.4* 7.3* 7.0* 7.1* -- 7.3* HEPATIC: Recent Labs 03/24/18 1400 ALKPHOS 66 ALT 18 AST 19 TBILI 1.7* URINALYSIS:No results for input(s): PH, SPGR, UGLUC, UBILI, UKET, UHB, UPROT, UROBIL, UWBC, SSA in the last 168 hours. Invalid input(s): NITR CARDIAC: No results for input(s): CKTEST, CKMB, CKMBP, TROPT, PBNP in the last 168 hours. Delgado Clements MD 10:13 AM March 31, 2018 CASE MANAGEM Observed: 03/31/2018 Status: COMPLETED Source: [place] 9:17 AM CLINIC OTHER CAMPUS REPOSITORY HNO ID: [id number] Author: Breann (Rn) INEZ Vogel Service: Care Management Author Type: Registered Nurse Type: Care Mgt Progress Note Filed: 03/31/2018 9:25 AM Note Text: CT in place. Remains on IV atbx. Discharge plan remains home with spouse when medically ready for discharge. RENAL PANEL Collected: 03/31/2018 Status: F Source: [facility] 7:26 AM HEALTH SYSTEM REPOSITORY TYPE CODE TESTS RESULT OUT OF REFERENCE UNITS RANGE LAB NA(LOINC) 136-145 mEq/L Sodium Blood 136 LAB K(LOINC) 3.5-5.1 mEq/L Potassium Blood 3.9 LAB CL(LOINC) 98-107 mEq/L Chloride Blood 103 LAB CO2(LOINC) 21-32 mEq/L CO2 Blood 28 LAB GLU(LOINC) 70-99 mg/dL Glucose High Blood 171 LAB BUN(LOINC) 7-18 mg/dL Low BUN Blood 5 LAB CREA(LOINC 0.67-1.17 mg/dL ) Low Creatinine Blood 0.50 LAB CA(LOINC) 8.5-10.1 mg/dL Calcium Blood 8.5 LAB ALB(LOINC) 3.4-5.0 g/dL Low Albumin Blood 2.2 LAB PHOS(LOINC 2.5-4.9 mg/dL ) Phosphorus Blood 3.3 Performed By: #### RENAL #### [place] [address] MDRD GFR Collected: 03/31/2018 Status: F Source: [facility] 7:26 [facility] REPOSITORY TYPE CODE TESTS RESULT OUT OF RANGE REFERENCE UNITS LAB GFRFN(LOINC >60mL/min/1.73m ) 2 eGFR >60 Result Comment: If the patient is , multiply the result by 1.210. Performed By: #### GFR #### [place] [address] HEMOGRAM/DIFF Collected: 03/31/2018 Status: F Source: [facility] 7:26 AM HEALTH SYSTEM REPOSITORY TYPE CODE TESTS RESULT OUT OF REFERENCE UNITS RANGE LAB WBC(LOINC) 4.23-9.07 thou/cmm Low WBC 3.23 LAB RBC(LOINC) 4.63-6.08 mil/cmm Low RBC 3.06 LAB HGB(LOINC) 13.7-17.5 g/dL Low Hgb 8.7 LAB HCT(LOINC) 40.1-51.0 % Low Hct 28.3 LAB MCV(LOINC) 83.2-95.6 fl MCV 92.5 LAB MCH(LOINC) 25.7-32.2 pg MCH 28.4 LAB MCHC(LOINC 32.3-36.5 % ) Low MCHC 30.7 LAB RDW(LOINC) 11.6-14.4 % RDW High 17.1 LAB RDWSD(LOIN 36.1-45.8 fl C) RDW SD High 56.1 LAB PLT(LOINC) 141-365 thou/cmm Low Platelet 107 LAB MPV(LOINC) 8.7-12.0 fl MPV 10.7 LAB SEG(LOINC) % Seg Neutrophil 57.6 LAB IGRE(LOINC % ) Immature Grans 0.60 LAB LYMPH(LOIN % C) Lymphocyte 26.9 LAB MNO(LOINC) % Monocyte 11.8 LAB EOSIN(LOIN % C) Eosinophil 2.8 LAB BASO(LOINC % ) Basophil 0.3 LAB SEGN(LOINC 1.78-5.38 thou/cmm ) Abs. Neut (ANC) 1.86 LAB IGAB(LOINC 0.00-0.05 thou/cmm ) Abs Immature Grans 0.02 LAB LYMN(LOINC 0.84-2.85 thou/cmm ) Abs. Lymph 0.87 LAB MONON(LOIN 0.30-0.82 thou/cmm C) Abs. Dickinson 0.38 LAB EOSN(LOINC 0.04-0.54 thou/cmm ) Abs. Eosin 0.09 LAB BASON(LOIN 0.01-0.08 thou/cmm C) Abs. Baso 0.01 Result Comment: Smear scanned; tech agrees with automated differential Performed By: #### [id number] #### [place] [id number] PROGRESS Observed: 03/31/2018 Status: COMPLETED Source: [place] 6:55 AM CLINIC OTHER CAMPUS REPOSITORY HNO ID: [id number] Author: Alejandro Montelongo Service: Thoracic Surgery Author Type: Physician Type: Progress Notes Filed: 03/31/2018 10:53 AM Note Text: VASCULAR SURGERY PROGRESS NOTE SERVICE DATE: 03/31/2018 Subjective SUBJECTIVE: Round 2 of tPA Yesterday. Denies N/V/CP/SOB Diet: DIET CARBOHYDRATE CONTROLLED Objective OBJECTIVE: Vitals: Temp (24hrs), Av.3 ?C (97.3 ?F), Min:36 ?C (96.8 ?F), Max:36.6 ?C (97.9 ?F) BP 117/64 Pulse 81 Temp 36.4 ?C (97.5 ?F) (Oral) Resp 18 Ht 172.7 cm (5' 8) Wt 122.2 kg (269 lb 4.8 oz) SpO2 93% BMI 40.95 kg/m? O2 Therapy: Room Air IANDO: Date 03/30/18 0700 - 03/31/18 0659 03/31/18 07 - 04/01/18 0659 Shift 2725-1316 8743-9056 0041-3659 24 Hour Total 2875-3042 5595-4067 4119-8623 24 Hour Total I N T A K E PO 180 480 660 PO 180 480 660 IV 100 100 100 300 Ampicillin/Sulbactam (Unasyn) IV 100 100 100 300 Shift Total 280 580 100 960 O U T P U T Urine 1 2 3 Urine Not Saved 1 2 3 Chest Tube 95 160 25 280 Chest Tube Output (Chest Tube 03/27/18 1828 Left Lateral Tube #1) 95 160 25 280 Shift Total 95 161 27 283 Weight (kg) 121.1 121.1 122.2 122.2 122.2 122.2 122.2 122.2 MEDICATIONS Current Facility-Administered Medications: ampicillin-sulbactam 3 g in NaCl 0.9% 100 mL MB+ (UNASYN) 3 g INTRAVENOUS q 6 H oxyCODONE IR 5-10 mg tab(s) (ROXICODONE) 5-10 mg ORAL q 4 H PRN morphine 4 mg injection 4 mg INTRAVENOUS q [address] mg tab(s) (PROTONIX) 40 mg ORAL BID AC (0600/1600) insulin regular human injection (short acting) (NovoLIN R,HumuLIN R) SUBCUTANEOUS w MEALS AND HS dextrose 40 % 15 g 15 g ORAL PRN Or glucagon 1 mg injection (GLUCAGEN) 1 mg INTRAMUSCULAR PRN Or dextrose 50% in water 25 mL syringe 12.5 g INTRAVENOUS PRN prochlorperazine 5 mg injection (COMPAZINE) 5 mg INTRAVENOUS q 6 H PRN Labs: Recent Labs 03/30/18 0425 03/29/18 1449 03/29/18 0245 NA 139 -- 142 K 3.9 -- 3.6 CHLOR 108* -- 111* CO2 28 -- 26 BUN 4* -- 6* CREAT 0.52* -- 0.61* GLUC 163* -- 188* CA 8.3* -- 8.0* P 2.9 -- 2.4* ALB 2.3* -- 1.8* WBC 3.85* -- 3.38* HB 8.1* 7.7* 7.8* HCT 25.9* -- 25.1* PLT 121* -- 105* Exam: GENERAL: No distress, Alert LUNGS: Unlabored breathing O2 Therapy: Room Air. CT in place -20 sxn, serous, no leak CARDIAC: Regular rate and rhythm as above ABDOMEN: Soft, non-tender, non-distended EXTREMITIES: FLORES, No deformities, No edema ASSESSMENT AND PLAN: Active Hospital Problems Diagnosis Date Noted - Obstructive sleep apnea 03/26/2018 Chronic - Diabetes (HCC) 03/26/2018 Chronic - Nicotine use disorder, F17.2 03/25/2018 - Obesity, Class III, BMI >= 40 03/25/2018 - Malnutrition of moderate degree ([facility]) 03/25/2018 - Anemia 03/24/2018 - Atrial fibrillation with RVR ([facility]) 03/24/2018 - Pulmonary embolism ([facility]) 03/24/2018 - GI bleed 03/24/2018 Overview Note: Added automatically from request for surgery [id number] 52 year old male with Left Parapneumonic Effusion s/p CT on 03/27, PE/DVT and DVT s/p EGD with PUD and Colonoscopy - cont Left CT to -20 sxn - daily CXR slightly improved today. May need repeat CT to evaluate collections - Pleural Cx negative x3d - Cytology pending - Unasyn per ID - Ambulate - IS - pain control ? Assessment and plan discussed with attending: Dr. Montelongo SIGNATURE: Jose Woods MD PATIENT NAME: Joel Matson DATE: March 31, 2018 TIME: 6:55 AM Pager: [phone] CT Surg Attending Patient sleepin--wakes easily CXR perhaps some better Not much response to tpa yesterday P-as d/w resident continue chest tube on suction and consider inc suction. GLUCOSE METER Collected: 03/31/2018 Status: F Source: [facility] 6:44 AM HEALTH SYSTEM REPOSITORY TYPE CODE TESTS RESULT OUT OF REFERENCE UNITS RANGE LAB GLUBL(LOINC 70-99 mg/dL ) High Glucose Meter 188 Result Comment: RN NOTIFIED Performed By: #### GLMET #### [facility] [address] [place] [address] CHEST 1 VIEW Observed: 03/31/2018 Status: F Source: [facility] 6:25 AM HEALTH SYSTEM REPOSITORY Performed at [facility] APPROVED BY: Franklin Winn MD EXAM TITLE: CHEST 1 VIEW DATE: 03/31/2018 06:19 INDICATION: Follow-up for left chest tube COMPARISON: 03/30/2018 FINDINGS: Left thoracostomy tube is stable. Some atelectasis and small pleural effusion are stable at the left base. There is no visible pneumothorax. Right lung is relatively clear. Heart is not en larged. Osseous structures are intact. IMPRESSION: Stable appearance. GLUCOSE METER Collected: 03/30/2018 Status: F Source: [facility] 10:02 PM HEALTH SYSTEM REPOSITORY TYPE CODE TESTS RESULT OUT OF REFERENCE UNITS RANGE LAB GLUBL(LOINC 70-99 mg/dL ) High Glucose Meter 259 Result Comment: RN NOTIFIED Performed By: #### GLMET #### [place] [address] GLUCOSE METER Collected: 03/30/2018 Status: F Source: [facility] 5:15 PM HEALTH SYSTEM REPOSITORY TYPE CODE TESTS RESULT OUT OF REFERENCE UNITS RANGE LAB GLUBL(LOINC 70-99 mg/dL ) High Glucose Meter 217 Performed By: #### GLMET #### [place] [address] GLUCOSE METER Collected: 03/30/2018 Status: F Source: [facility] 11:50 AM HEALTH SYSTEM REPOSITORY TYPE CODE TESTS RESULT OUT OF REFERENCE UNITS RANGE LAB GLUBL(LOINC 70-99 mg/dL ) High Glucose Meter 190 Result Comment: RN NOTIFIED Performed By: #### GLMET #### [address] [place], [place] [address] PROCEDURE Observed: 03/30/2018 Status: COMPLETED Source: [place] 10:50 AM [facility] OTHER CAMPUS REPOSITORY HNO ID: [id number] Author: Alejandro Montelongo Service: Thoracic Surgery Author Type: Physician Type: Procedures Filed: 03/30/2018 11:18 AM Note Text: 5mg/50cc tPA instilled into patient's left chest tube with tube clamped. Pt tolerated well, no complications noted. ? Continue clamp for 2-3 hours, with position change every 15 minutes to improve penetration of TPA into pleural space. Clamp(s) can be removed after this period of time and suction returned to previous level. Appropriate orders with instructions have been placed. Santos Wen MD 03/30/2018 10:52 AM CXR, drainage reviewed and d/w resident and 2nd RX w tpa planned for today as discussed. Thanks. PROGRESS Observed: 03/30/2018 Status: COMPLETED Source: [place] 10:32 AM [facility] REPOSITORY HNO ID: [id number] Author: Kym East Service: Hospital Medicine Author Type: Physician Type: Progress Notes Filed: 03/30/2018 10:59 AM Note Text: Subjective - Follow up note for [facility], see also chart review in 03/28 note. Per ID note today - '1. Pneumococcal pneumonia in setting of loculated left pleural effusion- fluid seems to be hemothorax rather than empyema so shorter course of therapy (if was empyema then would do 4-6 weeks) -Continue unasyn for now with transition to augmentin 875 BID at discharge or if current IV fails- stop date=04/07 -f/u cytology of pleural fluid' Per CTS today - '52 year old male with Left Parapneumonic Effusion s/p CT on 03/27, PE/DVT and DVT s/p EGD with PUD and Colonoscopy - med mgmt per primary - cont Left CT to -20 sxn - daily CXR slightly improved today - tPA via chest tube yesterday, may repeat treatment today - Pleural Cx negative x2d - Cytology pending - Unasyn per ID - Ambulate - IS - pain control Assessment and plan discussed with attending: Dr. Montelongo' Long discussion with pt this morning, I filled out paperwork for disability insurance for pt, RN faxed for him. He is not looking forward to another tPa procedure today as he was in a lot of pain after same yesterday. Feels sl less swollen in hands after yesterday's lasix, still a lot of edema in legs, does not want lasix again today due to not wanting to get up too much after tPa this afternoon (he is anticipating increase in pain). No fever or chills, no nausea or vomiting, no sob, pain with deep breathing from chest tube. Long Objective - 03/29/18199903/30/18 0310 03/30/18 0741 03/30/18 0900 BP: 149/55 126/61 113/67 Pulse: 78 81 88 Resp: Temp: 36.3 ?C (97.3 ?F) 36.7 ?C (98.1 ?F) 36.6 ?C (97.9 ?F) TempSrc: Oral Oral SpO2: 97% 96% 99% Weight: 121.1 kg (267 lb) Height: ?Results for JOEL MATSON ( ) as of 03/30/2018 10:37 Ref. Range 03/30/2018 04:25 03/30/2018 06:49 03/30/2018 09:15 Sodium Latest Ref Range: 136 - 145 mEq/L 139 Potassium Latest Ref Range: 3.5 - 5.1 mEq/L 3.9 Chloride Latest Ref Range: 98 - 107 mEq/L 108 (H) CO2 Latest Ref Range: 21 - 32 mEq/L 28 BUN Latest Ref Range: 7 - 18 mg/dL 4 (L) Creatinine Latest Ref Range: 0.67 - 1.17 mg/dL 0.52 (L) Glucose Latest Ref Range: 70 - 99 mg/dL 163 (H) Calcium Latest Ref Range: 8.5 - 10.1 mg/dL 8.3 (L) Phosphorus Latest Ref Range: 2.5 - 4.9 mg/dL 2.9 Albumin Latest Ref Range: 3.4 - 5.0 g/dL 2.3 (L) eGFR Latest Ref Range: >60mL/min/1.73m2 >60 Hematocrit Latest Ref Range: 40.1 - 51.0 % 25.9 (L) WBC Latest Ref Range: 4.23 - 9.07 thou/cmm 3.85 (L) RBC Latest Ref Range: 4.63 - 6.08 mil/cmm 2.83 (L) HGB Latest Ref Range: 13.7 - 17.5 g/dL 8.1 (L) Platelet Count Latest Ref Range: 141 - 365 thou/cmm 121 (L) MCV Latest Ref Range: 83.2 - 95.6 fl 91.5 MCH Latest Ref Range: 25.7 - 32.2 pg 28.6 MCHC Latest Ref Range: 32.3 - 36.5 % 31.3 (L) MPV Latest Ref Range: 8.7 - 12.0 fl 9.6 RDW-SD Latest Ref Range: 36.1 - 45.8 fl 59.1 (H) Seg Neutrophil Latest Units: % 54.3 Lymphocyte Latest Units: % 31.7 Monocyte Latest Units: % 10.1 Eosinophil Latest Units: % 2.9 Basophil Latest Units: % 0.5 Abs. Baso Latest Ref Range: 0.01 - 0.08 thou/cmm 0.02 Abs. Eosin Latest Ref Range: 0.04 - 0.54 thou/cmm 0.11 Immature Grans Latest Units: % 0.50 Immature Grans # Latest Ref Range: 0.00 - 0.05 thou/cmm 0.02 Abs. Lymph Latest Ref Range: 0.84 - 2.85 thou/cmm 1.22 Abs. Dickinson Latest Ref Range: 0.30 - 0.82 thou/cmm 0.39 RDW Latest Ref Range: 11.6 - 14.4 % 18.2 (H) Abs. Neut(Anc) Latest Ref Range: 1.78 - 5.38 thou/cmm 2.09 XR CHEST 1V FRONTAL Unknown Rpt GLUCOSE METER Latest Ref Range: 70 - 99 mg/dL 168 (H) Today's CXR report is pending. GEN - obese 52 yo wm lying flat in bed, NAD HEENT - PERR, few teeth, thick neck CARD - RRR PULM - CTABL anterior, left chest tube is not draining at this time ABD - soft, nontender EXT - less edema of left arm 'I can flex my fist now', edema of legs no change, 4+ NEURO - no focal deficits Assessment/plan - 1) CAP/parapneumonic effusion, urine pos for S pneumoniae antigen/ANDREW/suspicion for PE (US of legs neg) IVC filter was placed on 03/26 - as per CTS and ID, for tPa again today for loculated effusion ? 2) Acute blood loss anemia/EGD on ?03/25 showed 3 ulcers, colonoscopy on 03/27 was normal - stable, of note, pt was diclofenac per home med list, will need capsule endoscopy of bleeding recurs per GI ? 3) Afib - was likely due to acute blood loss anemia, appears in NSR now, no anticoag due to #2, stable ? 4) hx of Testicular cancer - does not appear active by history, path and cytology pending on pleural fluid ? 5) DM -stable ? 6) Acute on chronic debility - PT and OT evals, up out of bed ? 7) Anasarca/edema/hypoalbuminemia - likely due to fluid resuscitation while in ICU and malnutrition, had IV lasix and albumin on 03/29, pt declines lasix today, consider lasix again on 03/31 ? 8) GI and DVT prophylaxis - PPI, had IVC filter placed on 03/26 while in ICU ? 8) Disposition - as above, will follow, appreciate ID and CTS for this very special pt. Discussed with pt and his RN. Disability paperwork filled out, RN faxed, originals to be returned to patient. ? NURSING PROG Observed: 03/30/2018 Status: COMPLETED Source: [facility] 9:45 AM CLINIC OTHER CAMPUS REPOSITORY HNO ID: [id number] Author: Rick (Rn) INEZ Almanzar Service: Nursing Author Type: Registered Nurse Type: Nursing Progress Note Filed: 03/30/2018 9:46 AM Note Text: Nursing Progress Note Patient Name: Joel Matson Patient Location: [id number]-* Daily Note:per order, sent text page to Dr. Wen informing that tPa is on the floor. This note was completed by: Rick Almanzar RN PROGRESS Observed: 03/30/2018 Status: COMPLETED Source: [place] 9:19 AM CLINIC OTHER CAMPUS REPOSITORY HNO ID: [id number] Author: John Hernandez III Service: Infectious Disease Author Type: Physician Type: Progress Notes Filed: 03/30/2018 9:24 AM Note Text: Infectious Disease CONSULT PROGRESS NOTE SERVICE DATE: March 30, 2018 9:23 AM CONSULTING SERVICE: Internal Medicine INTERVAL HISTORY OF PRESENT ILLNESS: F/u pneumococcal pneumonia with loculated pleural effusion Patient feeling well. Only complaint is that he had a lot of pain when TPA placed into his chest tube yesterday. No fevers or chills. No nausea, diarrhea or rashes with the antibiotics. Current Facility-Administered Medications: alteplase 5 mg in NaCl 0.9% 45 mL intrapleural syringe 5 mg INTRAPLEURAL ONCE ampicillin-sulbactam 3 g in NaCl 0.9% 100 mL MB+ (UNASYN) 3 g INTRAVENOUS q 6 H oxyCODONE IR 5-10 mg tab(s) (ROXICODONE) 5-10 mg ORAL q 4 H PRN morphine 4 mg injection 4 mg INTRAVENOUS q [address] 40 mg tab(s) (PROTONIX) 40 mg ORAL BID AC (0600/1600) insulin regular human injection (short acting) (NovoLIN R,HumuLIN R) SUBCUTANEOUS w MEALS AND HS dextrose 40 % 15 g 15 g ORAL PRN Or glucagon 1 mg injection (GLUCAGEN) 1 mg INTRAMUSCULAR PRN Or dextrose 50% in water 25 mL syringe 12.5 g INTRAVENOUS PRN prochlorperazine 5 mg injection (COMPAZINE) 5 mg INTRAVENOUS q 6 H PRN Objective PHYSICAL EXAM: Patient Vitals for the past 24 hrs: BP Temp Temp src Pulse Resp SpO2 Weight 03/29/18 0700 130/64 36.5 ?C (97.7 ?F) Oral 78 18 100 % - 03/29/18 0527 - - - - - - 122 kg (268 lb 14.4 oz) 03/29/18 0232 128/61 36.7 ?C (98.1 ?F) Temporal Art 71 18 100 % - 03/28/18 2236 117/52 36 ?C (96.8 ?F) Temporal Art 72 18 97 % - 03/28/18 1950 126/55 36.9 ?C (98.4 ?F) Temporal Art 88 18 98 % - 03/28/18 1515 126/57 36.9 ?C (98.4 ?F) Temporal Art 82 18 96 % - 03/28/18 1100 142/61 36.7 ?C (98.1 ?F) Oral 79 20 96 % - Body mass index is 40.6 kg/m?. GENERAL: Alert, no distress, cooperative SKIN: Skin color, texture, turgor normal. No rashes or lesions. OROPHARYNX: Lips, mucosa, and tongue are normal.Teeth and gums, normal. Oropharynx normal. LUNGS: Clear to auscultation bilaterally. Left sided chest tube in place. CARDIAC: Normal S1 and S2; no rubs, murmurs, or gallops ABDOMEN: Abdomen soft, non-tender, BS normal, No masses or organomegaly DATA: Diagnostic tests reviewed for today's visit: Component Latest Ref Rng AND Units 03/30/2018 WBC 4.23 - 9.07 thou/cmm 3.85 (L) RBC 4.63 - 6.08 mil/cmm 2.83 (L) HGB 13.7 - 17.5 g/dL 8.1 (L) Hematocrit 40.1 - 51.0 % 25.9 (L) MCV 83.2 - 95.6 fl 91.5 MCH 25.7 - 32.2 pg 28.6 MCHC 32.3 - 36.5 % 31.3 (L) RDW 11.6 - 14.4 % 18.2 (H) RDW-SD 36.1 - 45.8 fl 59.1 (H) Platelet Count 141 - 365 thou/cmm 121 (L) MPV 8.7 - 12.0 fl 9.6 Seg Neutrophil % 54.3 Immature Grans % 0.50 Lymphocyte % 31.7 Monocyte % 10.1 Eosinophil % 2.9 Basophil % 0.5 Abs. Neut(Anc) 1.78 - 5.38 thou/cmm 2.09 Immature Grans # 0.00 - 0.05 thou/cmm 0.02 Abs. Lymph 0.84 - 2.85 thou/cmm 1.22 Abs. Dickinson 0.30 - 0.82 thou/cmm 0.39 Abs. Eosin 0.04 - 0.54 thou/cmm 0.11 Abs. Baso 0.01 - 0.08 thou/cmm 0.02 Sodium 136 - 145 mEq/L 139 Potassium 3.5 - 5.1 mEq/L 3.9 Chloride 98 - 107 mEq/L 108 (H) CO2 21 - 32 mEq/L 28 Glucose 70 - 99 mg/dL 163 (H) BUN 7 - 18 mg/dL 4 (L) Creatinine 0.67 - 1.17 mg/dL 0.52 (L) Calcium 8.5 - 10.1 mg/dL 8.3 (L) Albumin 3.4 - 5.0 g/dL 2.3 (L) Phosphorus 2.5 - 4.9 mg/dL 2.9 CXR: 03/30/2018 persistent pleural effusion. Impression/Recommendations 1. Pneumococcal pneumonia in setting of loculated left pleural effusion- fluid seems to be hemothorax rather than empyema so shorter course of therapy (if was empyema then would do 4-6 weeks) -Continue unasyn for now with transition to augmentin 875 BID at discharge or if current IV fails- stop date=04/07 -f/u cytology of pleural fluid ? ? 2. Severe anemia, attributed to GI bleeding. - GI signed off. Will do capsule endoscopy if bleeding recurs. ? 3. History of testicular cancer, treated with resection and radiation therapy. ? ? 4. Diabetes mellitus. ? 5. Atrial fibrillation. -off amio SIGNATURE: John Hernandez III, MD PATIENT NAME: Joel Matson DATE: March 30, 2018 TIME: 9:20 AM PAGER/CONTACT #: [phone] GLUCOSE METER Collected: 03/30/2018 Status: F Source: [facility] 6:49 AM HEALTH SYSTEM REPOSITORY TYPE CODE TESTS RESULT OUT OF REFERENCE UNITS RANGE LAB GLUBL(LOINC 70-99 mg/dL ) High Glucose Meter 168 Result Comment: RN NOTIFIED Performed By: #### GLMET #### [facility] [address] [place] [address] CHEST 1 VIEW Observed: 03/30/2018 Status: F Source: [facility] 6:49 AM HEALTH SYSTEM REPOSITORY Performed at [facility] APPROVED BY: Jass Garza MD EXAMINATION: CHEST RADIOGRAPH (PORTABLE SINGLE VIEW AP) Exam Date/Time: 03/30/2018 6:49 AM Clinical History: Empyema, left chest tube. M: XCP_3 Comparison: 1 day prior RESULT: See impression. IMPRESSION: Limitations: None. Lines, tubes, and devices: Left chest tube appears now projects slightly higher in the left perihilar region. Lungs and pleura: No visualized pneumothorax. The right lung is clear. Mild consolidative changes at the left base appear mildly improved, thought to reflect a combination of small pleural effusion and atelectasis. Cardiomediastinal silhouette: Remains stable. Other: Visualized osseous structures are unchanged. PROGRESS Observed: 03/30/2018 Status: COMPLETED Source: [place] 6:08 AM CLINIC OTHER CAMPUS REPOSITORY HNO ID: [id number] Author: Alejandro Montelongo Service: Thoracic Surgery Author Type: Physician Type: Progress Notes Filed: 03/30/2018 1:24 PM Note Text: Thoracic Surgery Progress Note SERVICE DATE: 03/30/2018 Subjective SUBJECTIVE: NAEON, pain control improved following tPA Denies N/V/CP/SOB Diet: DIET CARBOHYDRATE CONTROLLED Objective OBJECTIVE: Vitals: Temp (24hrs), Av.6 ?C (97.9 ?F), Min:36.3 ?C (97.3 ?F), Max:36.9 ?C (98.4 ?F) BP 126/61 Pulse 81 Temp 36.7 ?C (98.1 ?F) (Oral) Resp 18 Ht 172.7 cm (5' 8) Wt 122 kg (268 lb 14.4 oz) SpO2 96% BMI 40.89 kg/m? O2 Therapy: Room Air IANDO: Date 03/29/18699 - 03/30/18 0659 03/30/18 07 - 03/31/18 0659 Shift 2366-1153 9706-5652 7109-0773 24 Hour Total 3848-5581 6089-6197 8794-8340 24 Hour Total I N T A K E PO 480 884 433 7783 PO 480 999 784 1520 IV 200 100 300 ALBUMIN (mL) 100 100 Ampicillin/Sulbactam (Unasyn) IV 100 100 200 Shift Total 480 887 664 4587 O U T P U T Urine 3 402 2 407 Void (ml) 400 400 Urine Not Saved 3 2 2 7 Chest Tube 40 375 50 465 Chest Tube Output (Chest Tube 03/27/18 1828 Left Lateral Tube #1) 40 375 50 465 Shift Total 43 597 52 872 Weight (kg) 122 122 122 122 122 122 122 122 MEDICATIONS Current Facility-Administered Medications: ampicillin-sulbactam 3 g in NaCl 0.9% 100 mL MB+ (UNASYN) 3 g INTRAVENOUS q 6 H oxyCODONE IR 5-10 mg tab(s) (ROXICODONE) 5-10 mg ORAL q 4 H PRN morphine 4 mg injection 4 mg INTRAVENOUS q 2 H PRN potassium chloride ER 40 mEq tab(s) (K-DUR, KLOR-CON) 40 mEq ORAL BID pantoprazole DR 40 mg tab(s) (PROTONIX) 40 mg ORAL BID AC (0600/1600) insulin regular human injection (short acting) (NovoLIN R,HumuLIN R) SUBCUTANEOUS w MEALS AND HS dextrose 40 % 15 g 15 g ORAL PRN Or glucagon 1 mg injection (GLUCAGEN) 1 mg INTRAMUSCULAR PRN Or dextrose 50% in water 25 mL syringe 12.5 g INTRAVENOUS PRN prochlorperazine 5 mg injection (COMPAZINE) 5 mg INTRAVENOUS q 6 H PRN Labs: Recent Labs 03/30/18 0425 03/29/18 1449 03/29/18 0245 03/28/18 0318 NA 139 -- 142 -- 141 K 3.9 -- 3.6 -- 3.7 CHLOR 108* -- 111* -- 112* CO2 28 -- 26 -- 23 BUN 4* -- 6* -- 4* CREAT 0.52* -- 0.61* -- 0.54* GLUC 163* -- 188* -- 121* ANION -- -- -- -- 10 CA 8.3* -- 8.0* -- 7.4* P 2.9 -- 2.4* -- -- ALB 2.3* -- 1.8* -- -- WBC 3.85* -- 3.38* -- 3.51* HB 8.1* 7.7* 7.8* < > 7.3* HCT 25.9* -- 25.1* -- 23.1* PLT 121* -- 105* -- 75* < > = values in this interval not displayed. Exam: GENERAL: No distress, Alert NEURO: AANDOx3, CN II-XII grossly intact HEENT: normocephalic, atraumatic LUNGS: Unlabored breathing O2 Therapy: Room Air, Left CT - 20 sxn, serous?output, no?leak CARDIAC: Regular rate and rhythm as above ABDOMEN: Soft, non-tender, non-distended EXTREMITIES: FLORES, No deformities, No edema SKIN: Skin color, texture, turgor normal, No rashes or lesions ASSESSMENT AND PLAN: Active Hospital Problems Diagnosis Date Noted - Obstructive sleep apnea 03/26/2018 Chronic - Diabetes ([facility]) 03/26/2018 Chronic - Nicotine use disorder, F17.2 03/25/2018 - Obesity, Class III, BMI >= 40 03/25/2018 - Malnutrition of moderate degree ([facility]) 03/25/2018 - Anemia 03/24/2018 - Atrial fibrillation with RVR ([facility]) 03/24/2018 - Pulmonary embolism ([facility]) 03/24/2018 - GI bleed 03/24/2018 Overview Note: Added automatically from request for surgery [id number] 52 year old male with Left Parapneumonic Effusion s/p CT on 03/27, PE/DVT and DVT s/p EGD with PUD and Colonoscopy ? - med mgmt per primary - cont Left CT to -20 sxn - daily CXR slightly improved today - tPA via chest tube yesterday, may repeat treatment today - Pleural Cx negative x2d - Cytology pending - Unasyn per ID - Ambulate - IS - pain control ? Assessment and plan discussed with attending: Dr. Montelongo SIGNATURE: Santos Wen MD PATIENT NAME: Joel Matson DATE: March 30, 2018 TIME: 6:09 AM Pager: [phone] Patient seen. Labs, data, drainage, and cxr reviewed and d/w residents. P-redose tpa today. HEMOGRAM/DIFF Collected: 03/30/2018 Status: F Source: [facility] 4:25 AM HEALTH SYSTEM REPOSITORY TYPE CODE TESTS RESULT OUT OF REFERENCE UNITS RANGE LAB WBC(LOINC) 4.23-9.07 thou/cmm Low WBC 3.85 LAB RBC(LOINC) 4.63-6.08 mil/cmm Low RBC 2.83 LAB HGB(LOINC) 13.7-17.5 g/dL Low Hgb 8.1 LAB HCT(LOINC) 40.1-51.0 % Low Hct 25.9 LAB MCV(LOINC) 83.2-95.6 fl MCV 91.5 LAB MCH(LOINC) 25.7-32.2 pg MCH 28.6 LAB MCHC(LOINC 32.3-36.5 % ) Low MCHC 31.3 LAB RDW(LOINC) 11.6-14.4 % RDW High 18.2 LAB RDWSD(LOIN 36.1-45.8 fl C) RDW SD High 59.1 LAB PLT(LOINC) 141-365 thou/cmm Low Platelet 121 LAB MPV(LOINC) 8.7-12.0 fl MPV 9.6 LAB SEG(LOINC) % Seg Neutrophil 54.3 LAB IGRE(LOINC % ) Immature Grans 0.50 LAB LYMPH(LOIN % C) Lymphocyte 31.7 LAB MNO(LOINC) % Monocyte 10.1 LAB EOSIN(LOIN % C) Eosinophil 2.9 LAB BASO(LOINC % ) Basophil 0.5 LAB SEGN(LOINC 1.78-5.38 thou/cmm ) Abs. Neut (ANC) 2.09 LAB IGAB(LOINC 0.00-0.05 thou/cmm ) Abs Immature Grans 0.02 LAB LYMN(LOINC 0.84-2.85 thou/cmm ) Abs. Lymph 1.22 LAB MONON(LOIN 0.30-0.82 thou/cmm C) Abs. Dickinson 0.39 LAB EOSN(LOINC 0.04-0.54 thou/cmm ) Abs. Eosin 0.11 LAB BASON(LOIN 0.01-0.08 thou/cmm C) Abs. Baso 0.02 Performed By: #### CBCD1 #### [place] [address] RENAL PANEL Collected: 03/30/2018 Status: F Source: [facility] 4:25 AM HEALTH SYSTEM REPOSITORY TYPE CODE TESTS RESULT OUT OF REFERENCE UNITS RANGE LAB NA(LOINC) 136-145 mEq/L Sodium Blood 139 LAB K(LOINC) 3.5-5.1 mEq/L Potassium Blood 3.9 LAB CL(LOINC) 98-107 mEq/L Chloride High Blood 108 LAB CO2(LOINC) 21-32 mEq/L CO2 Blood 28 LAB GLU(LOINC) 70-99 mg/dL Glucose High Blood 163 LAB BUN(LOINC) 7-18 mg/dL Low BUN Blood 4 LAB CREA(LOINC 0.67-1.17 mg/dL ) Low Creatinine Blood 0.52 LAB CA(LOINC) 8.5-10.1 mg/dL Low Calcium Blood 8.3 LAB ALB(LOINC) 3.4-5.0 g/dL Low Albumin Blood 2.3 LAB PHOS(LOINC 2.5-4.9 mg/dL ) Phosphorus Blood 2.9 Performed By: #### RENAL #### [place] [address] MDRD GFR Collected: 03/30/2018 Status: F Source: [facility] 4:25 AM HEALTH SYSTEM REPOSITORY TYPE CODE TESTS RESULT OUT OF RANGE REFERENCE UNITS LAB GFRFN(LOINC >60mL/min/1.73m ) 2 eGFR >60 Result Comment: If the patient is , multiply the result by 1.210. Performed By: #### GFR #### [place] [address] GLUCOSE METER Collected: 03/29/2018 Status: F Source: [facility] 9:45 PM HEALTH SYSTEM REPOSITORY TYPE CODE TESTS RESULT OUT OF REFERENCE UNITS RANGE LAB GLUBL(LOINC 70-99 mg/dL ) High Glucose Meter 255 Result Comment: RN NOTIFIED Performed By: #### GLMET #### [place] [address] PROGRESS Observed: 03/29/2018 Status: COMPLETED Source: [place] 5:16 PM CLINIC OTHER CAMPUS REPOSITORY HNO ID: [id number] Author: Kym Esat Service: Hospital Medicine Author Type: Physician Type: Progress Notes Filed: 03/29/2018 5:39 PM Note Text: Subjective - Follow up note for [facility], see also 03/28 note for chart review. Paged earlier by RN re: pt's pain not controlled, more pain after CT manipulation. I adjusted pain meds, asked RN to alert CTS. Per ID today - '1. Loculated left pleural effusion. Based on cell counts, looks more like hemothorax - Chest tube in place. CT surgery: tPA in the chest tube today. - CXR today: looks about the same. Fluid studies: amylase: 21. Glucose: 133. LD: 217. Protein: 1.7. PH:7.680. RBC: 00706. No serum LDH or Protein sent. Cultures, AFB, cytology pending. - urine strep Pnemo positive. - Will stop Ceftriaxone and doxycycline. Will start Unasyn today. .?Patient received one dose of Piperacillin/Tazobactam ?Likely will go with shorter course of therapy if no growth from pleural fluid since this looks more likely hemothorax. - IVC filter in place.' Per CTS today - '52 year old male with Left Parapneumonic Effusion s/p CT on 03/27, PE/DVT and DVT s/p EGD with PUD and Colonoscopy - med mgmt per primary - cont Left CT to -20 sxn - daily CXR pending - tPA via chest tube today - Pleural Cx negative x1d - Cytology pending - Rocephin/Doxy per ID - Ambulate - IS - pain control Assessment and plan discussed with attending: Dr. Montelongo' GI signed off on 03/28, would need capsule endoscopy if further bleeding. This afternoon, pt says pain is finally controlled, the IV morphine helped, he is wearing his CPAP, says 'it is helping open up my lungs, still hurts in my back'. No fever or chills, is hoping to get up and walk tomorrow, but would like to rest today due to the pain from the manipulation earlier. Objective - 03/29/18 0232 03/29/18 0527 03/29/18 0700 03/29/18 1630 BP: 128/61 130/64 145/53 Pulse: 71 78 86 Resp: 18 Temp: 36.7 ?C (98.1 ?F) 36.5 ?C (97.7 ?F) 36.9 ?C (98.4 ?F) TempSrc: Temporal Artery Oral Temporal Artery SpO2: 100% 100% 100% Weight: 122 kg (268 lb 14.4 oz) Height: Results for JOEL MATSON ( ) as of 03/29/2018 17:19 Ref. Range 03/28/2018 14:10 03/29/2018 02:45 03/29/2018 14:49 Sodium Latest Ref Range: 136 - 145 mEq/L 142 Potassium Latest Ref Range: 3.5 - 5.1 mEq/L 3.6 Chloride Latest Ref Range: 98 - 107 mEq/L 111 (H) CO2 Latest Ref Range: 21 - 32 mEq/L 26 BUN Latest Ref Range: 7 - 18 mg/dL 6 (L) Creatinine Latest Ref Range: 0.67 - 1.17 mg/dL 0.61 (L) Glucose Latest Ref Range: 70 - 99 mg/dL 188 (H) Calcium Latest Ref Range: 8.5 - 10.1 mg/dL 8.0 (L) Phosphorus Latest Ref Range: 2.5 - 4.9 mg/dL 2.4 (L) Albumin Latest Ref Range: 3.4 - 5.0 g/dL 1.8 (L) eGFR Latest Ref Range: >60mL/min/1.73m2 >60 Hematocrit Latest Ref Range: 40.1 - 51.0 % 25.1 (L) WBC Latest Ref Range: 4.23 - 9.07 thou/cmm 3.38 (L) RBC Latest Ref Range: 4.63 - 6.08 mil/cmm 2.72 (L) HGB Latest Ref Range: 13.7 - 17.5 g/dL 7.7 (L) 7.8 (L) 7.7 (L) Platelet Count Latest Ref Range: 141 - 365 thou/cmm 105 (L) MCV Latest Ref Range: 83.2 - 95.6 fl 92.3 MCH Latest Ref Range: 25.7 - 32.2 pg 28.7 MCHC Latest Ref Range: 32.3 - 36.5 % 31.1 (L) MPV Latest Ref Range: 8.7 - 12.0 fl 9.4 RDW-SD Latest Ref Range: 36.1 - 45.8 fl 63.4 (H) Seg Neutrophil Latest Units: % 53.8 Lymphocyte Latest Units: % 29.9 Monocyte Latest Units: % 11.8 Eosinophil Latest Units: % 3.3 Basophil Latest Units: % 0.3 Abs. Baso Latest Ref Range: 0.01 - 0.08 thou/cmm 0.01 Abs. Eosin Latest Ref Range: 0.04 - 0.54 thou/cmm 0.11 Immature Grans Latest Units: % 0.90 Immature Grans # Latest Ref Range: 0.00 - 0.05 thou/cmm 0.03 Abs. Lymph Latest Ref Range: 0.84 - 2.85 thou/cmm 1.01 Abs. Dickinson Latest Ref Range: 0.30 - 0.82 thou/cmm 0.40 RDW Latest Ref Range: 11.6 - 14.4 % 19.9 (H) Abs. Neut(Anc) Latest Ref Range: 1.78 - 5.38 thou/cmm 1.82 ?Labs appear stable. Fluid cytology is still pending from 03/27. Neg for Histo abx, no yeast or mold isolated to date, pleural fluid no growth to date. STREP PNEUMONIAE AG (Final) [facility] Positive for pneumococcal pneumonia GEN - morbidly obese 52 yo wm lying completely flat in bed, wearing CPAP, alert and oriented, NAD HEENT - thick neck, mouth moist, CARD - RRR PULM - sounds clear anterior, has left chest tube on suction draining fluids that appears yellowish with sl blood tinge ABD - soft, nontender EXT - still has edema in legs and hands/arms NEURO - no focal deficits Assessment/plan - ? 1) CAP/parapneumonic effusion, urine pos for S pneumoniae antigen/ANDREW/suspicion for PE (US of legs neg) - as per CTS and ID, pain now controlled after manipulation today (tPA). IVC filter was placed on 03/26. ? 2) Acute blood loss anemia/EGD on 03/25 showed 3 ulcers, colonoscopy on 03/27 was normal - stable, of note, pt was diclofenac per home med list, will need capsule endoscopy of bleeding recurs per GI ? 3) Afib - was likely due to acute blood loss anemia, appears in NSR now, no anticoag due to #2 ? 4) hx of Testicular cancer - does not appear active by history, path and cytology pending on pleural fluid ? 5) DM -stable ? 6) Acute on chronic debility - PT and OT evals, up out of bed 7) Anasarca/edema/hypoalbuminemia - likely due to fluid resuscitation while in ICU and malnutrition, trial of one dose of IV lasix today with IV albumin, reassess 03/30. ? 8) GI and DVT prophylaxis - PPI, had IVC filter placed on 03/26 while in ICU ? 8) Disposition - as above, will follow, appreciate ID and CTS for this very special pt GLUCOSE METER Collected: 03/29/2018 Status: F Source: [facility] 4:47 PM [facility] SYSTEM REPOSITORY TYPE CODE TESTS RESULT OUT OF REFERENCE UNITS RANGE LAB GLUBL(LOINC 70-99 mg/dL ) High Glucose Meter 254 Result Comment: RN NOTIFIED Performed By: #### GLMET #### [facility] [address] [address] NURSING PROG Observed: 03/29/2018 Status: COMPLETED Source: [place] 4:45 PM [facility] REPOSITORY HNO ID: [id number] Author: Ritu CoreasRn) INEZ Henley Service: Nursing Author Type: Registered Nurse Type: Nursing Progress Note Filed: 03/29/2018 4:48 PM Note Text: Pt chest tube unclamped at 16:00 per MD order, 200cc of yellow/serous drainage went into canister. Pt began having increased pain at chest tube site, especially bad with deep breathing, inside of Left chest into his back. Dr. East notified, new pain med orders in place. Morphine [address] Lund with thoracic surgery notified. Will call back if pain does not improve. HGB Collected: 03/29/2018 Status: F Source: [facility] 2:49 PM HEALTH SYSTEM REPOSITORY TYPE CODE TESTS RESULT OUT OF RANGE REFERENCE UNITS LAB HGBI(LOINC) 13.7-17.5 g/dL Low Hgb 7.7 Performed By: #### HGBI #### [facility] [address] [id number] PROGRESS Observed: 03/29/2018 Status: COMPLETED Source: [place] 2:33 PM [facility] REPOSITORY HNO ID: [id number] Author: Queta Fajardo) INEZ Helm Service: PICC Team Author Type: Registered Nurse Type: Progress Notes Filed: 03/29/2018 2:35 PM Note Text: PICC/VASCULAR ACCESS PROGRESS NOTE SERVICE DATE: 03/29/2018 SERVICE TIME: 1430 Procedure for placement of intravenous catheter with use of ultrasound guidance and need for catheter explained to patient with verbal understanding given by patient. Following hospital protocol, a 20g 2.25inch Bard AccuCath catheter was placed using ultrasound guidance to right without difficulty on the first attempt. Catheter with brisk blood return and flushes easily with 10cc normal saline. Catheter capped. StatLock stabilization device applied. Site dressing per hospital policy. Patient tolerated procedure well. Local Anesthetic : 1% lidocaine given at site per policy SIGNATURE: Queta Helm RN PATIENT NAME: Joel Matson DATE: March 29, 2018 TIME: 2:33 PM PAGER/CONTACT #: [phone] PROCEDURE Observed: 03/29/2018 Status: COMPLETED Source: [place] 1:15 PM [facility] REPOSITORY HNO ID: [id number] Author: Alejandro Montelongo Service: Thoracic Surgery Author Type: Physician Type: Procedures Filed: 03/29/2018 5:20 PM Note Text: TPA 60cc/Lidocaine 1% 15cc instilled into patient's left chest tube with tube clamped. Pt tolerated well, no complications noted. Continue clamp for 2-3 hours, with position change every 15 minutes to improve penetration of TPA into pleural space. Clamp(s) can be removed after this period of time and suction returned to previous level. Appropriate orders with instructions have been placed. SIGNATURE: Caterina Landin MD PATIENT NAME: Joel Matson DATE: March 29, 2018 TIME: 1:17 PM PAGER/CONTACT #: [phone] As discussed and thanks. GLUCOSE METER Collected: 03/29/2018 Status: F Source: [facility] 12:06 PM HEALTH SYSTEM REPOSITORY TYPE CODE TESTS RESULT OUT OF REFERENCE UNITS RANGE LAB GLUBL(LOINC 70-99 mg/dL ) High Glucose Meter 197 Result Comment: RN NOTIFIED Performed By: #### GLMET #### [place] [address] THERAPY NT Observed: 03/29/2018 Status: COMPLETED Source: [place] 11:50 AM [facility] OTHER [place] REPOSITORY HNO ID: [id number] Author: Trinh CoreasOtr/Jen Maynard Service: Occupational Therapy Author Type: Occupational Therapist Type: Therapy (PT/OT/Speech/Resp) Filed: 03/29/2018 11:54 AM Note Text: Occupational Therapy Evaluation SERVICE DATE: 03/29/2018 SERVICE TIME: 1130 to 1144 ROOM: [id number] Recommended Discharge Disposition: Home Anticipated Discharge Needs: Physical Assist at Home Physical Assist at Home for: Shopping;Transportation OT Recommendations to Nursing: To Bathroom for ADL?s /and or Toileting;OOB for meals;With assist of 1 person OT 6 Clicks Score: 22 Precaution/Activity Restriction Comments: L chest tube Isolation Type: None ASSESSMENT: OT Evaluation Low Complexity: Occupational Profile - Brief review of patient's medical record completed (please see current hospital course of evaluation). Occupational Performance - Pt presents with deficits in feeding, grooming, UE bathing/dressing, LE bathing/dressing, functional transfers, functional mobility, decreased safety awareness, decreased insight into deficits Complexity in Clinical Decision Making - The extent of clinical reasoning was low, number of treatment options limited, no need for modifications during the evaluation process, no comorbidities present to affect patient's occupational performance. Patient Disposition at Start of Session: OOB in Chair Patient Disposition at End of Session: OOB in Chair;Call Malik in Reach Tolerated Full Session Occupational Therapy Problem List: Impaired Self Care Patient /Caregiver Goals: Go Home Goals for Plan of Care: Lower Body Bathing with: Independent Lower Body Dressing with: Independent Toilet Transfer with: Independent Tub Transfer with: Independent Rehab Potential: Good PLAN: Treatment Frequency (times per week): 5 (1-5) Current admission Treatment Interventions: Education;Self Care / Home Management;Energy Conservation Training Plan of Care developed with: Patient TREATMENT INTERVENTIONS: Therapy Diagnosis: Decreased activities of daily living (ADL) Interventions Provided: Evaluation;Self Longterm Management (99115) $ Evaluation-Low (79878) Billed Units: 1 unit Self Longterm Management (45940) Treatment Minutes: 3 0 units Skilled Intervention(s): . Pt educated on energy conservation techniques to help decrease fatigue during ADLs and IADL upon d/c, provided handout. Total Timed Code Treatment Minutes: 3 Total Treatment Time (minutes): 14 FUNCTIONAL G CODE: OT 6 Clicks Score: 22 (03/29/18 1130) Self Care Current Status (G8987): CJ (03/29/18 1130) Self Care Goal Status (G8988): CH (03/29/18 113) Based on clinical assessment and the score on the 6 Clicks Functional Assessment Tool, the G code and corresponding severity modifiers are documented above. SUBJECTIVE: Current Hospital Course: Chart reviewed; . Patient had LLL PNA 2 wks ago treated as outpatient with 7 days abx. Eads better then 6 days ago became increasingly SOB Acute blood loss and Pulmonary embolism s/p left chest tube Reason for Occupational Therapy Consult: safety assessment Relevant Past Medical History: testicular cancer Patient Report: found up in chair, agreeable to therapy, reports 5/10 pain at chest tube site. My can help if I need something. Home Environment Patient Lives With: Significant Other ( and son ) Assistance Available: 24 Hour (family works opposite shifts) Number Of Stairs To Bed/Bath: flight Stairs to Bed/Bath with: Unilateral Rail Prior Functional Level: Within Functional Limits (He was able to work and do yard work) OBJECTIVE: Responsiveness: Alert Follows Commands: 3-step Commands Vision Deficits: Wears glasses CURRENT FUNCTIONAL STATUS: Current Activities of Daily Living Assist Level Feeding Set Up Grooming Stand By Assistance Bathing Upper Body Stand By Assistance Bathing Lower Body Minimal Assistance Dressing Upper Body Stand By Assistance Dressing Lower Body Minimal Assistance Toileting Stand By Assistance Functional Mobility Assist Level Rolling Supine to Sit Sit to Supine Scooting Sit to Stand Stand By Assistance Stand to Sit Stand By Assistance Bed to Chair Toilet/Commode Stand By Assistance Functional Mobility Stand By Assistance Range Of Motion: Within Functional Limits Strength: Within Functional Limits Balance: Static Standing;Dynamic Standing Static Standing Balance: Stand By Assistance Dynamic Standing Balance: Stand By Assistance Please see discipline specific clinical documentation flowsheet for complete details for this therapy evaluation/treatment. SIGNATURE: Trinh Maynard OTR/L PATIENT NAME: Joel Matson DATE: March 29, 2018 TIME: 11:50 AM PAGER: [phone] ALLIED HEALTH Observed: 03/29/2018 Status: COMPLETED Source: [place] 11:29 AM [facility] REPOSITORY HNO ID: [id number] Author: Courtney Nickerson LPN Service: Home Care Services Author Type: LICENSED NURSE Type: Allied Health Filed: 03/29/2018 11:45 AM Note Text: INDUCTOR TESTER NOTE SERVICE DATE: 03/29/2018 SERVICE TIME: 1145 No PCP listed will need prior to setting up c. SIGNATURE: Courtney Nickerson LPN PATIENT NAME: Joel Matson DATE: March 29, 2018 TIME: 11:29 AM CASE MANAGEM Observed: 03/29/2018 Status: COMPLETED Source: [place] 11:24 AM [facility] REPOSITORY HNO ID: [id number] Author: Breann Fajardo) INEZ Vogel Service: Care Management Author Type: Registered Nurse Type: Care Mgt Progress Note Filed: 03/29/2018 11:29 AM Note Text: PT recs home. Discharge plan remains home with spouse when medically ready for discharge. Per Dr. Hernandez, will discharge on oral atbx. THERAPY NT Observed: 03/29/2018 Status: COMPLETED Source: [place] 10:11 AM CLINIC OTHER CAMPUS REPOSITORY HNO ID: [id number] Author: Holli (Pt) Toney Service: Physical Therapy Author Type: Physical Therapist Type: Therapy (PT/OT/Speech/Resp) Filed: 03/29/2018 10:28 AM Note Text: Physical Therapy Evaluation SERVICE DATE: 03/29/2018 SERVICE TIME: 839 to 917 ROOM: [place] [id number] Recommended Discharge Disposition: Home PT Recommendations to Nursing: Ambulate without device;To bathroom;In halls;OOB for Meals;With assist of 1 person PT 6 Clicks Score: 21 Precaution/Activity Restriction Comments: Left chest tube Isolation Type: None ASSESSMENT : Patient presents with a left chest tube and is having pain with moving at insertion site. His course is complicated by DM, where is blood sugar levels at baseline have led to passing out and falling. He is able to move with encouragement and assistance. At this time patient will likely be moving well enough to go home at discharge. Patient Disposition at Start of Session: Supine in Bed Patient Disposition at End of Session: OOB in Chair Tolerated Full Session Physical Therapy Problem List: Education Deficit;Functional Mobility Impairment Patient /Caregiver Goals: Go Home Goals for Plan of Care: Rolling with: Independent Transfer supine to/from sit with: Independent Transfer sit to/from stand with: Independent Ambulate with: Independent Distance: 50 Ambulate up and down steps with: Independent Number of steps: 10 Device: Rail Rehab Potential: Excellent PLAN: Treatment Frequency (times per week): 5 (2-5) Current admission Treatment Interventions: Education;Functional Mobility Training Plan of Care developed with: Patient TREATMENT INTERVENTIONS: Therapy Diagnosis: General symptoms and signs-other Interventions Provided: Evaluation;Therapeutic Activity (32520) $ Evaluation-Moderate (52716) Billed Units: 1 unit Therapeutic Activity (33309) Treatment Minutes: 23 2 units Skilled Intervention(s): Education with the importance of getting up out of bed and walking with staff to work on his endurance and improve lung health. He was educated on proper elevation of his left arm to reduce swelling, and hand squeezes to promote circulation. Walked in the hallway with instruction on dep breathing and looking up Rather than the floor, he did not need any safety instruction or interventions with his gait pattern. Education on pacing himself with gait and increasing his gait distance and frequency with assistance, not moving by himself yet. Answered patients questions. Total Timed Code Treatment Minutes: 23 Total Treatment Time (minutes): 38 FUNCTIONAL G CODE: PT 6 Clicks Score: 21 (03/29/18839) Mobility: Walking and Moving Around Current Status (G8978): CJ (03/29/18839) Mobility: Walking and Moving Around Goal Status (G8979): CI (03/29/18839) Based on clinical assessment and the score on the 6 Clicks Functional Assessment Tool, the G code and corresponding severity modifiers are documented above. SUBJECTIVE: Current Hospital Course: Chart reviewed; 52 yo with testicular cancer, post chemoradiation. Has had a couch for 2-3 weeks, went to ED after a near syncopal event, 03/25 had EGD (3 small ulcers) 03/24 IVC placed, 03/27 colonoscopy (blood likely from upper GI tract 03/26 chest tube insertion. Reason for Physical Therapy Consult : Eval Relevant Past Medical History: DM, pnuemonia, low Hgb Patient Report: Patient reports that he has no pain when he is still but does have pain when he is transferring. He is afraid of causing pain with walking. Home Environment Patient Lives With: Significant Other ( and son ) Assistance Available: 24 Hour (family works opposite shifts) Number Of Stairs To Bed/Bath: flight Stairs to Bed/Bath with: Unilateral Rail Prior Functional Level: Within Functional Limits (He was able to work and do yard work) OBJECTIVE: CURRENT FUNCTIONAL STATUS: Current Functional Mobility Assist Level Additional Information Rolling Supine to Sit Sit to Supine Scooting Sit to Stand Stand By Assistance Stand to Sit Stand By Assistance Bed to Chair Toilet/Commode Gait Stand By Assistance Gait Device: Other: See Comment (occassionally using hand rail) Gait Distance (feet): 120 x 2 Stairs Curb Step Car Transfer General Gait Deviations: Viviane decreased Lateral sway due to body habitus rather than balance disturbance. Please see discipline specific clinical documentation flowsheet for complete details for this therapy evaluation/treatment. SIGNATURE: Holli Ziegler PT PATIENT NAME: Joel Matson DATE: March 29, 2018 TIME: 10:11 AM PAGER/CONTACT #: [phone] NUTRITION Observed: 03/29/2018 Status: COMPLETED Source: [place] 9:43 AM CLINIC OTHER CAMPUS REPOSITORY HNO ID: [id number] Author: Mitali Sterling) DEMARCUS Trinidad Service: Nutrition Therapy Author Type: Registered Dietitian Type: Nutrition Filed: 03/29/2018 1:40 PM Note Text: NUTRITION THERAPY PROGRESS NOTE SERVICE DATE: 03/29/2018 SERVICE TIME: 9:43 AM RECOMMENDED DIAGNOSIS: MODERATE PROTEIN-CALORIE MALNUTRITION per Registered Dietitian on 03/25/18 NUTRITION CARE PLAN Problem, Etiology and Signs/Symptoms: Suboptimal oral intake related to decreased appetite/not feeling well x 2 weeks 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 Patient had LLL PNA 2 wks ago FOOD SAFETY SPECIALIST treated as outpatient with 7 days abx. Eads better then 6 days FOOD SAFETY SPECIALIST ago became increasingly SOB. PCP did outpt stress test which was normal and ECHO which showed LVEF=70%. Went to [place] ED 03/24 and found to have Hgb 4.4 (last check on 03/03 was 13.5). Also a-fib RVR, no h/o arrhythmias started on amiodarone. CTPE showed loculated pleural effusion L suspicious for empyema given recent pna as well as LLL PEs. No anticoagulation given suspected GI bleed. Patient reported he maybe had loose black stools with the pna, but no gross blood in stools, that resolved, normal BMs now. Small blood streaked sputum also with the pna which has resolved. Endorses lightheadedness with standing. Interval History: EGD on 03/25/18 showed 3 small non bleeding gastric ulcers, biopsied. ID consulted managing antibiotics. IVC filter placed on 03/26/18. Colonoscopy completed on 03/27 revealed melena in the cecum. Chest tube inserted on 03/27 following colonoscopy. BM 03/28 Present Diet Order: Carbohydrate Controlled Nutritional Intake: >75% estimated energy needs over the past 5 day(s), reports appetite improving and tolerating po well. + flatus, small BM 03/28. Denies N/V/C/D Reports poor po 3-4 weeks prior to admission eating 0-25% of estimated needs with sugar-free jello and bites of meals. Admission Weight: 120.1 kg (264 lb 12.4 oz) Current Weight: 122 kg (268 lb 14.4 oz) Body mass index is 40.89 kg/m?. class 3 obesity Reports usual body weight 250 lbs about 3 weeks ago. Noted weight gain of 18 lbs from usual body weight. Edema generalized 1+, bilateral upper extremities 2+ and bilateral lower extremities 1+. Last 12 Encounter Wt Readings: Date: Wt: 03/24/2018 122 kg (268 lb 14.4 oz) 08/01/2007 114.3 kg (252 lb) No chartmaxx records to review. ALLERGIES No Known Allergies Current Facility-Administered Medications: pantoprazole DR 40 mg tab(s) (PROTONIX) 40 mg ORAL BID AC (0600/1600) insulin regular human injection (short acting) (NovoLIN R,HumuLIN R) SUBCUTANEOUS w MEALS AND HS oxyCODONE IR 5 mg tab(s) (ROXICODONE) 5 mg ORAL q 4 H PRN cefTRIAXone iv piggyback 2 g in dextrose (iso-osmotic) 50 mL (ROCEPHIN) 2 g INTRAVENOUS q 24 H doxycycline 100 mg in D5W 250 mL (VIBRAMYCIN) 100 mg INTRAVENOUS q 12 H dextrose 40 % 15 g 15 g ORAL PRN Or glucagon 1 mg injection (GLUCAGEN) 1 mg INTRAMUSCULAR PRN Or dextrose 50% in water 25 mL syringe 12.5 g INTRAVENOUS PRN prochlorperazine 5 mg injection (COMPAZINE) 5 mg INTRAVENOUS q 6 H PRN Surgical Incision 03/26/18 1300 Femoral - Left (Active) Dressing Status Clean, Dry AND Intact 03/28/2018 7:50 PM Frequency of Dressing Change As Needed 03/28/2018 7:50 PM Dressing /Treatment Type Band Aid 03/28/2018 7:50 PM Incision Closures Other: See Comment 03/26/2018 8:00 PM Drainage Description None 03/28/2018 7:50 PM Drainage Amount None 03/28/2018 7:50 PM Edges Intact 03/28/2018 7:40 AM Hematoma No 03/28/2018 7:50 PM Number of days: 2 MNT Billing Type: Re-assess/15 min 2 units SIGNATURE: Mitali Trinidad RD, [place] PATIENT NAME: Joel Matson DATE: March 29, 2018 TIME: 9:43 AM PAGER: [phone] PROGRESS Observed: 03/29/2018 Status: COMPLETED Source: [place] 8:30 AM CLINIC OTHER CAMPUS REPOSITORY HNO ID: [id number] Author: John Hernandez III Service: Infectious Disease Author Type: Physician Type: Progress Notes Filed: 03/29/2018 11:37 AM Note Text: Infectious Disease CONSULT PROGRESS NOTE SERVICE DATE: 03/29/2018 SERVICE TIME: 8:31 AM CONSULTING SERVICE: Internal Medicine The patient is a 52-year-old man with past medical history of DM, ANDREW, history of testicular caner. Was transferred ?from [facility] Emergency Department for severe anemia, severe dyspnea and A fib with Rapid Ventricular Rate. Patient was found to have a?loculated left pleural effusion with left lower lobe infiltrate and left lower ?lobe pulmonary embolism. Due to to very low HB and suspected GI bleed patient could not be anticoagulated. IVC filter was placed yesterday by vascular. Patient got an EGD which showed 3 gastric ulcer but unlikely the source of bleeding. Was initially on Piperacillin/Tazobactam and now on Ceftriaxone and doxycycline. Urine Strep Pnemo was positive. Patient had a colonoscopy which showed tarry stool in the cecum and has a chest tube in place. INTERVAL HISTORY OF PRESENT ILLNESS: Patient sitting by the side of the bed eating breakfast. Less pain today. Has been able to get out of bed and use the washroom. No fevers or chills. No nausea or diarrhea. No cough at present. Current Facility-Administered Medications: pantoprazole DR 40 mg tab(s) (PROTONIX) 40 mg ORAL BID AC (0600/1600) insulin regular human injection (short acting) (NovoLIN R,HumuLIN R) SUBCUTANEOUS w MEALS AND HS oxyCODONE IR 5 mg tab(s) (ROXICODONE) 5 mg ORAL q 4 H PRN cefTRIAXone iv piggyback 2 g in dextrose (iso-osmotic) 50 mL (ROCEPHIN) 2 g INTRAVENOUS q 24 H doxycycline 100 mg in D5W 250 mL (VIBRAMYCIN) 100 mg INTRAVENOUS q 12 H dextrose 40 % 15 g 15 g ORAL PRN Or glucagon 1 mg injection (GLUCAGEN) 1 mg INTRAMUSCULAR PRN Or dextrose 50% in water 25 mL syringe 12.5 g INTRAVENOUS PRN prochlorperazine 5 mg injection (COMPAZINE) 5 mg INTRAVENOUS q 6 H PRN Objective PHYSICAL EXAM: Patient Vitals for the past 24 hrs: BP Temp Temp src Pulse Resp SpO2 Weight 03/29/18 0700 130/64 36.5 ?C (97.7 ?F) Oral 78 18 100 % - 03/29/18 0527 - - - - - - 122 kg (268 lb 14.4 oz) 03/29/18 0232 128/61 36.7 ?C (98.1 ?F) Temporal Art 71 18 100 % - 03/28/18 2236 117/52 36 ?C (96.8 ?F) Temporal Art 72 18 97 % - 03/28/18 1950 126/55 36.9 ?C (98.4 ?F) Temporal Art 88 18 98 % - 03/28/18 1515 126/57 36.9 ?C (98.4 ?F) Temporal Art 82 18 96 % - 03/28/18 1100 142/61 36.7 ?C (98.1 ?F) Oral 79 20 96 % - Body mass index is 40.89 kg/m?. GENERAL: Alert, no distress, cooperative SKIN: Skin color, texture, turgor normal. No rashes or lesions. OROPHARYNX: Lips, mucosa, and tongue are normal.Teeth and gums, normal. Oropharynx normal. NECK: No jugulovenous distention, No carotid bruits, Carotid pulse normal contour, Supple LUNGS: crackles present on the left side. CARDIAC: Normal S1 and S2; no rubs, murmurs, or gallops ABDOMEN: Abdomen soft, non-tender, BS normal, No masses or organomegaly EXTREMITIES: Extremities normal, no deformities, clubbing or skin discoloration. Good capillary refill., No ulcers. 2+ pitting edema present. NEURO: Alert, oriented X 3, Gait normal. Non-focal. Reflexes normal and symmetric. Sensation grossly intact., Cranial nerves II-XII intact PULSES: 2+ radial, 2+ carotid DATA: Diagnostic tests reviewed for today's visit: Component Latest Ref Rng AND Units 03/28/2018 03/28/2018 03/29/2018 3:18 AM 2:10 PM WBC 4.23 - 9.07 thou/cmm 3.51 (L) 3.38 (L) RBC 4.63 - 6.08 mil/cmm 2.51 (L) 2.72 (L) HGB 13.7 - 17.5 g/dL 7.3 (L) 7.7 (L) 7.8 (L) Hematocrit 40.1 - 51.0 % 23.1 (L) 25.1 (L) MCV 83.2 - 95.6 fl 92.0 92.3 MCH 25.7 - 32.2 pg 29.1 28.7 MCHC 32.3 - 36.5 % 31.6 (L) 31.1 (L) RDW 11.6 - 14.4 % 20.7 (H) 19.9 (H) RDW-SD 36.1 - 45.8 fl 62.0 (H) 63.4 (H) Platelet Count 141 - 365 thou/cmm 75 (L) 105 (L) MPV 8.7 - 12.0 fl 10.2 9.4 Seg Neutrophil % 53.8 Immature Grans % 0.90 Lymphocyte % 29.9 Monocyte % 11.8 Eosinophil % 3.3 Basophil % 0.3 Abs. Neut(Anc) 1.78 - 5.38 thou/cmm 1.82 Immature Grans # 0.00 - 0.05 thou/cmm 0.03 Abs. Lymph 0.84 - 2.85 thou/cmm 1.01 Abs. Dickinson 0.30 - 0.82 thou/cmm 0.40 Abs. Eosin 0.04 - 0.54 thou/cmm 0.11 Abs. Baso 0.01 - 0.08 thou/cmm 0.01 Sodium 136 - 145 mEq/L 141 142 Potassium 3.5 - 5.1 mEq/L 3.7 3.6 Chloride 98 - 107 mEq/L 112 (H) 111 (H) CO2 21 - 32 mEq/L 23 26 Glucose 70 - 99 mg/dL 121 (H) 188 (H) BUN 7 - 18 mg/dL 4 (L) 6 (L) Creatinine 0.67 - 1.17 mg/dL 0.54 (L) 0.61 (L) Calcium 8.5 - 10.1 mg/dL 7.4 (L) 8.0 (L) Albumin 3.4 - 5.0 g/dL 1.8 (L) Phosphorus 2.5 - 4.9 mg/dL 2.4 (L) Anion Gap 8 - 16 10 eGFR >60mL/min/1.73m2 >60 GLUCOSE METER 70 - 99 mg/dL 205 (H) Component Latest Ref Rng AND Units 03/27/2018 03/27/2018 6:30 PM 6:30 PM Specimen Type Pleural Pleural Appearance Bloody Body Fluid Color Sveta RBC, Body Fluid 0 /cmm 18,400 Nucleated Cells, Body Fluid 0 /cmm 167 Segs, Body Fluid % 19 Lymphs, Body Fluid % 53 Monos, Body Fluid % 16 Others, Body Fluid % 12 Amylase, Body Fluid U/L 21 Glucose, Body Fluid mg/dL 133 LD,Body Fluid U/L 217 pH, Body Fluid 7.680 Protein, Body Fluid g/dl 1.7 CXR: 03/29/2018 persistent pleural effusion. Impression/Recommendations 1. Loculated left pleural effusion. Based on cell counts, looks more like hemothorax - Chest tube in place. CT surgery: tPA in the chest tube today. - CXR today: looks about the same. Fluid studies: amylase: 21. Glucose: 133. LD: 217. Protein: 1.7. PH:7.680. RBC: 30231. No serum LDH or Protein sent. Cultures, AFB, cytology pending. - urine strep Pnemo positive. - Will stop Ceftriaxone and doxycycline. Will start Unasyn today. . Patient received one dose of Piperacillin/Tazobactam Likely will go with shorter course of therapy if no growth from pleural fluid since this looks more likely hemothorax. - IVC filter in place. ? ? 2. Severe anemia, attributed to GI bleeding. - GI signed off. Will do capsule endoscopy if bleeding recurs. ? 3. History of testicular cancer, treated with resection and radiation therapy. ? ? 4. Diabetes mellitus. ? 5. Atrial fibrillation. - Amio stopped. SIGNATURE: Shruthi Carmichael MD PATIENT NAME: Joel Matson DATE: March 29, 2018 TIME: 8:30 AM PAGER/CONTACT #: [phone] I saw and evaluated the patient. Discussed with the resident and agree with resident's findings and plan as documented in the resident's note. Since no growth from culture and fluid cell counts look more like hemothorax, I think best to treat just for two weeks and will transition to unasyn today (augmentin at discharge). SIGNATURE: John Hernanedz III, MD PATIENT NAME: Joel Matson DATE: March 29, 2018 TIME: 11:37 AM PAGER/CONTACT #: [phone] GLUCOSE METER Collected: 03/29/2018 Status: F [facility] HE[facility] REPOSITORY TYPE CODE TESTS RESULT OUT OF REFERENCE UNITS RANGE LAB GLUBL(LOINC 70-99 mg/dL ) High Glucose Meter 205 Result Comment: RN NOTIFIED Performed By: #### GLMET #### [place] [address] CHEST 1 VIEW Observed: 03/29/2018 Status: F [facility] 6:49 AM HEALTH SYSTEM REPOSITORY Performed at [facility] APPROVED BY: Franklin Winn MD EXAM TITLE: CHEST 1 VIEW DATE: 03/29/2018 06:43 INDICATION: Follow-up for left chest tube COMPARISON: 03/28/2018 FINDINGS: Left thoracostomy tube is stable in position. There is continued left basilar opacity that is likely secondary to a combination of atelectasis and pleural fluid. There is no visible pneumoth orax. The right lung is relatively clear. Heart is not enlarged. Osseous structures are intact. IMPRESSION: Stable appearance. PROGRESS Observed: 03/29/2018 Status: COMPLETED Source: [place] 6:03 AM CLINIC OTHER CAMPUS REPOSITORY HNO ID: [id number] Author: Alejandro Montelongo Service: Thoracic Surgery Author Type: Physician Type: Progress Notes Filed: 03/29/2018 10:09 AM Note Text: Thoracic Surgery Progress Note SERVICE DATE: 03/29/2018 Subjective SUBJECTIVE: NAEON, patient resting comfortably this morning Denies N/V/CP/SOB Diet: DIET CARBOHYDRATE CONTROLLED Objective OBJECTIVE: Vitals: Temp (24hrs), Av.6 ?C (97.9 ?F), Min:36 ?C (96.8 ?F), Max:36.9 ?C (98.4 ?F) BP 128/61 Pulse 71 Temp 36.7 ?C (98.1 ?F) (Temporal Artery) Resp 18 Ht 172.7 cm (5' 8) Wt 122 kg (268 lb 14.4 oz) SpO2 100% BMI 40.89 kg/m? O2 Therapy: Continuous Positive Airway Pressure IANDO: Date 03/28/18 07 - 03/29/18 0659 03/29/18 0700 - 03/30/18 0659 Shift 8043-1399 7728-0131 2686-7070 24 Hour Total 3502-2146 0687-0503 9781-7279 24 Hour Total I N T A K E PO 480 385 801 0176 PO 480 597 701 2160 IV 250 250 IVPB 250 250 Shift Total 480 801 607 4114 O U T P U T Urine 277 4 2 283 Void (ml) 275 275 Urine Not Saved 2 4 2 8 Chest Tube 310 70 25 405 Chest Tube Output (Chest Tube 03/27/18 1828 Left Lateral Tube #1) 310 70 25 405 # of BMs Number of BMs 1 x 1 x 2 x Shift Total 587 74 27 688 Weight (kg) 125.9 125.9 122 122 122 122 122 122 MEDICATIONS Current Facility-Administered Medications: pantoprazole DR 40 mg tab(s) (PROTONIX) 40 mg ORAL BID AC (0600/1600) insulin regular human injection (short acting) (NovoLIN R,HumuLIN R) SUBCUTANEOUS w MEALS AND HS oxyCODONE IR 5 mg tab(s) (ROXICODONE) 5 mg ORAL q 4 H PRN cefTRIAXone iv piggyback 2 g in dextrose (iso-osmotic) 50 mL (ROCEPHIN) 2 g INTRAVENOUS q 24 H doxycycline 100 mg in D5W 250 mL (VIBRAMYCIN) 100 mg INTRAVENOUS q 12 H dextrose 40 % 15 g 15 g ORAL PRN Or glucagon 1 mg injection (GLUCAGEN) 1 mg INTRAMUSCULAR PRN Or dextrose 50% in water 25 mL syringe 12.5 g INTRAVENOUS PRN prochlorperazine 5 mg injection (COMPAZINE) 5 mg INTRAVENOUS q 6 H PRN Labs: Recent Labs 03/29/18 0245 03/28/18 1410 03/28/18 0318 03/27/18 0150 NA 142 -- 141 -- 139 K 3.6 -- 3.7 -- 3.6 CHLOR 111* -- 112* -- 112* CO2 26 -- 23 -- 23 BUN 6* -- 4* -- 7 CREAT 0.61* -- 0.54* -- 0.43* GLUC 188* -- 121* -- 162* ANION -- -- 10 -- 8 CA 8.0* -- 7.4* -- 7.3* P 2.4* -- -- -- -- ALB 1.8* -- -- -- -- WBC 3.38* -- 3.51* -- 4.35 HB 7.8* 7.7* 7.3* < > 7.5* HCT 25.1* -- 23.1* -- 23.4* PLT 105* -- 75* -- 101* INR -- -- -- -- 1.00 < > = values in this interval not displayed. Exam: GENERAL: No distress, Alert NEURO: AANDOx3, CN II-XII grossly intact HEENT: normocephalic, atraumatic LUNGS: Unlabored breathing O2 Therapy: Continuous Positive Airway Pressure, Left CT -20 sxn, serous output, no leak CARDIAC: Regular rate and rhythm as above ABDOMEN: Soft, non-tender, non-distended EXTREMITIES: FLORES, No deformities, No edema SKIN: Skin color, texture, turgor normal, No rashes or lesions ASSESSMENT AND PLAN: Active Hospital Problems Diagnosis Date Noted - Obstructive sleep apnea 03/26/2018 Chronic - Diabetes (HCC) 03/26/2018 Chronic - Nicotine use disorder, F17.2 03/25/2018 - Obesity, Class III, BMI >= 40 03/25/2018 - Malnutrition of moderate degree (HCC) 03/25/2018 - Anemia 03/24/2018 - Atrial fibrillation with RVR (HCC) 03/24/2018 - Pulmonary embolism (HCC) 03/24/2018 - GI bleed 03/24/2018 Overview Note: Added automatically from request for surgery [id number] 52 year old male with Left Parapneumonic Effusion s/p CT on 03/27, PE/DVT and DVT s/p EGD with PUD and Colonoscopy ? - med mgmt per primary - cont Left CT to -20 sxn - daily CXR pending - tPA via chest tube today - Pleural Cx negative x1d - Cytology pending - Rocephin/Doxy per ID - Ambulate - IS - pain control ? Assessment and plan discussed with attending: Dr. Montelongo SIGNATURE: Santos Wen MD PATIENT NAME: Joel Matson DATE: March 29, 2018 TIME: 6:03 AM Pager: [phone] Patient seen and cxr reviewed. CXR some improvement at L base. P-diuresis, needs to move, and use spirometer. Cont chest tube on suction. HEMOGRAM/DIFF Collected: 03/29/2018 Status: F Source: [facility] 2:45 AM HEALTH SYSTEM REPOSITORY TYPE CODE TESTS RESULT OUT OF REFERENCE UNITS RANGE LAB WBC(LOINC) 4.23-9.07 thou/cmm Low WBC 3.38 LAB RBC(LOINC) 4.63-6.08 mil/cmm Low RBC 2.72 LAB HGB(LOINC) 13.7-17.5 g/dL Low Hgb 7.8 LAB HCT(LOINC) 40.1-51.0 % Low Hct 25.1 LAB MCV(LOINC) 83.2-95.6 fl MCV 92.3 LAB MCH(LOINC) 25.7-32.2 pg MCH 28.7 LAB MCHC(LOINC 32.3-36.5 % ) Low MCHC 31.1 LAB RDW(LOINC) 11.6-14.4 % RDW High 19.9 LAB RDWSD(LOIN 36.1-45.8 fl C) RDW SD High 63.4 LAB PLT(LOINC) 141-365 thou/cmm Low Platelet 105 LAB MPV(LOINC) 8.7-12.0 fl MPV 9.4 LAB SEG(LOINC) % Seg Neutrophil 53.8 LAB IGRE(LOINC % ) Immature Grans 0.90 LAB LYMPH(LOIN % C) Lymphocyte 29.9 LAB MNO(LOINC) % Monocyte 11.8 LAB EOSIN(LOIN % C) Eosinophil 3.3 LAB BASO(LOINC % ) Basophil 0.3 LAB SEGN(LOINC 1.78-5.38 thou/cmm ) Abs. Neut (ANC) 1.82 LAB IGAB(LOINC 0.00-0.05 thou/cmm ) Abs Immature Grans 0.03 LAB LYMN(LOINC 0.84-2.85 thou/cmm ) Abs. Lymph 1.01 LAB MONON(LOIN 0.30-0.82 thou/cmm C) Abs. Dickinson 0.40 LAB EOSN(LOINC 0.04-0.54 thou/cmm ) Abs. Eosin 0.11 LAB BASON(LOIN 0.01-0.08 thou/cmm C) Abs. Baso 0.01 Performed By: #### CBCD1 #### [place] [address] RENAL PANEL Collected: 03/29/2018 Status: F Source: [facility] 2:45 AM HEALTH SYSTEM REPOSITORY TYPE CODE TESTS RESULT OUT OF REFERENCE UNITS RANGE LAB NA(LOINC) 136-145 mEq/L Sodium Blood 142 LAB K(LOINC) 3.5-5.1 mEq/L Potassium Blood 3.6 LAB CL(LOINC) 98-107 mEq/L Chloride High Blood 111 LAB CO2(LOINC) 21-32 mEq/L CO2 Blood 26 LAB GLU(LOINC) 70-99 mg/dL Glucose High Blood 188 LAB BUN(LOINC) 7-18 mg/dL Low BUN Blood 6 LAB CREA(LOINC 0.67-1.17 mg/dL ) Low Creatinine Blood 0.61 LAB CA(LOINC) 8.5-10.1 mg/dL Low Calcium Blood 8.0 LAB ALB(LOINC) 3.4-5.0 g/dL Low Albumin Blood 1.8 LAB PHOS(LOINC 2.5-4.9 mg/dL ) Low Phosphorus Blood 2.4 Performed By: #### RENAL #### [facility] [address] [place] [address] MDRD GFR Collected: 03/29/2018 Status: F Source: [facility] 2:45 AM HEALTH SYSTEM REPOSITORY TYPE CODE TESTS RESULT OUT OF RANGE REFERENCE UNITS LAB GFRFN(LOINC >60mL/min/1.73m ) 2 eGFR >60 Result Comment: If the patient is , multiply the result by 1.210. Performed By: #### GFR #### [facility] [address] [place] [address] GLUCOSE METER Collected: 03/28/2018 Status: F Source: [facility] 9:10 PM HEALTH SYSTEM REPOSITORY TYPE CODE TESTS RESULT OUT OF REFERENCE UNITS RANGE LAB GLUBL(LOINC 70-99 mg/dL ) High Glucose Meter 269 Result Comment: RN NOTIFIED Performed By: #### GLMET #### [facility] [address] [place] [address] GLUCOSE METER Collected: 03/28/2018 Status: F Source: [facility] 4:50 PM HEALTH SYSTEM REPOSITORY TYPE CODE TESTS RESULT OUT OF REFERENCE UNITS RANGE LAB GLUBL(LOINC 70-99 mg/dL ) High Glucose Meter 249 Result Comment: RN NOTIFIED Performed By: #### GLMET #### [facility] [address] [place] [address] ALLIED HEALTH Observed: 03/28/2018 Status: COMPLETED Source: [place] 3:22 PM CLINIC OTHER CAMPUS REPOSITORY HNO ID: [id number] Author: Elina Yang Office Coord Service: (none) Author Type: (none) Type: Allied Health Filed: 03/28/2018 3:23 PM Note Text: INDUCTOR TESTER NOTE SERVICE DATE: 03/28/2018 SERVICE TIME: 3:22 PM Referral: Home Care referral received by: CM Referral to verify Infusion benefits Will continue to follow for physician orders SIGNATURE: Elina Yang Office Coord PATIENT NAME: Joel Matson DATE: March 28, 2018 TIME: 3:22 PM CONSULT PROG Observed: 03/28/2018 Status: COMPLETED Source: [place] 2:51 PM CLINIC OTHER CAMPUS REPOSITORY HNO ID: [id number] Author: Monica (Pamphlet Distributor) Colten Service: Gastroenterology Author Type: Nurse Specialist Type: Consult Progress Note Filed: 03/28/2018 3:00 PM Note Text: GI CONSULT PROGRESS NOTE SERVICE DATE: 03/28/2018 SERVICE TIME: 2:52 PM CONSULTING SERVICE: Gastroenterology Subjective INTERVAL HISTORY: Denies GI symptoms. Hgb stable. No overt signs of GI Bleeding MEDICATIONS: Current hospital medications: pantoprazole DR 40 mg tab(s) (PROTONIX) 40 mg ORAL BID AC (0600/1600) insulin regular human injection (short acting) (NovoLIN R,HumuLIN R) SUBCUTANEOUS w MEALS AND HS oxyCODONE IR 5 mg tab(s) (ROXICODONE) 5 mg ORAL q 4 H PRN cefTRIAXone iv piggyback 2 g in dextrose (iso-osmotic) 50 mL (ROCEPHIN) 2 g INTRAVENOUS q 24 H doxycycline 100 mg in D5W 250 mL (VIBRAMYCIN) 100 mg INTRAVENOUS q 12 H dextrose 40 % 15 g 15 g ORAL PRN glucagon 1 mg injection (GLUCAGEN) 1 mg INTRAMUSCULAR PRN dextrose 50% in water 25 mL syringe 12.5 g INTRAVENOUS PRN prochlorperazine 5 mg injection (COMPAZINE) 5 mg INTRAVENOUS q 6 H PRN Objective PHYSICAL EXAM: VITALS:BP 142/61 Pulse 79 Temp 36.7 ?C (98.1 ?F) (Oral) Resp 20 Ht 172.7 cm (5' 8) Wt 125.9 kg (277 lb 8 oz) SpO2 96% BMI 42.19 kg/m? ABDOMEN: Soft, nondistended, nontender, bowel sounds present. No guarding, rebound or rigidity. GENERAL: Alert and oriented. DATA: Diagnostic tests reviewed for today's visit: Most recent labs and imaging results. CBC, Coags, BMP, Mg, Phos Recent Labs 03/28/18 1410 03/28/18 0318 03/27/18 1420 03/27/18 0150 03/26/18 0200 WBC -- 3.51* -- 4.35 -- 6.14 HB 7.7* 7.3* 7.1* 7.5* < > 7.5* HCT -- 23.1* -- 23.4* -- 23.0* PLT -- 75* -- 101* -- 107* INR -- -- -- 1.00 -- -- NA -- 141 -- 139 -- 139 K -- 3.7 -- 3.6 -- 3.2* CHLOR -- 112* -- 112* -- 108* CO2 -- 23 -- 23 -- 27 BUN -- 4* -- 7 -- 13 CREAT -- 0.54* -- 0.43* -- 0.53* GLUC -- 121* -- 162* -- 189* CA -- 7.4* -- 7.3* -- 7.0* < > = values in this interval not displayed. Colonoscopy (03/27) - diverticulosis with tarry stool in cecum. Normal TI EGD (03/25) - 3 small gastric ulcers. Surgical pathology showed minimal chronic gastritis. Impression/Recommendations Anemia - acute normocytic. Hgb stable -Monitor Hgb/Hct - transfuse as needed - Monitor BMs for bleeding - Consider capsule endoscopy for further GI bleeding ?? ?Atrial fibrillation with RVR - rate controlled - managed per primary team ? ??Pulmonary embolism- acute. s/p IVC filter placement - monitor ? Diet as tolerated Would need capsule endoscopy for further bleeding ?GI will sign off Call with questions SIGNATURE: Monica Abel APRN.INFORMATICA MDM ARCHITECT PATIENT NAME: Joel Matson DATE: March 28, 2018 TIME: 2:52 PM PAGER/CONTACT #: [phone] THERAPY NT Observed: 03/28/2018 Status: COMPLETED Source: [place] 2:50 PM CLINIC OTHER CAMPUS REPOSITORY HNO ID: [id number] Author: Holli Ziegler Service: Physical Therapy Author Type: Physical Therapist Type: Therapy (PT/OT/Speech/Resp) Filed: 03/28/2018 2:50 PM Note Text: PHYSICAL THERAPY MISSED VISIT SERVICE DATE: 03/28/2018 SERVICE TIME: 1315 (1325) and 1450 (returned and patient declined) ROOM: [place] [address] Attempted Evaluation. Patient not seen due to Other: See Comment (Was up with RN twice and near syncope each time). SIGNATURE: Holli Ziegler PT PATIENT NAME: Joel Matson DATE: March 28, 2018 TIME: 2:50 PM PAGER/CONTACT #: [phone] LEAD ELECTROCARDIOGRAM Observed: 03/28/2018 Status: F Source: [place] 2:19 PM [facility] [place] [place] REPOSITORY [facility] Cardiovascular Services [address] [place] [address] 12 Lead EKG 03/24/18 0745 MR#: [id number] Acct: [id number] Name: DANIA MATSONJefferson Shah Rep #: [id number] : 1965 52 From: Yon Ruiz MD Attending Dr: Status: DEP ER Ordering Dr: Fred Brooks MD Date: 03/24/18 Location: ED Sex: M C Admitted: Test Reason : CP Blood Pressure : / mmHG Vent. Rate : 105 BPM Atrial Rate : 105 BPM P-R Int : 160 ms QRS Dur : 094 ms QT Int : 346 ms P-R-T Axes : 058 020 099 degrees QTc Int : 457 ms Sinus tachycardia Nonspecific T wave abnormality Abnormal ECG Confirmed by FIORDALIZA GARCIA, YON ([id number]), proposal editor MACIE LAURA ([id number]) on 03/28/2018 2:18:26 PM Referred By: Ravindra Durham Confirmed By:YON RUIZ MD 03/28/18 1418 Date Yon Ruiz MD CC: Fred Brooks MD; Ravindra Durham MD Signed 12 LEAD ELECTROCARDIOGRAM Observed: 03/28/2018 Status: F Source: [place] 2:18 PM [facility] [place] [place] REPOSITORY [facility] Cardiovascular Services [address] [place] [address] 12 Lead EKG 03/24/18 0955 MR#: [id number] Acct: [id number] Name: DANIA MATSONJefferson Shah Rep #: [id number] : 1965 52 From: Yon Ruiz MD Attending Dr: Status: DEP ER Ordering Dr: Fred Brooks MD Date: 03/24/18 Location: ED Sex: M C Admitted: Test Reason : REPEAT Blood Pressure : / mmHG Vent. Rate : 131 BPM Atrial Rate : 138 BPM P-R Int : 000 ms QRS Dur : 094 ms QT Int : 308 ms P-R-T Axes : 000 023 220 degrees QTc Int : 454 ms Atrial fibrillation Low voltage QRS ST AND T wave abnormality, consider inferolateral ischemia Abnormal ECG Confirmed by FIORDALIZA GARCIA, YON ([id number]), proposal editor MACIE LAURA ([id number]) on 03/28/2018 2:18:10 PM Referred By: Ravindra Durham Confirmed By:YON RUIZ MD 03/28/18 1418 Date Yon Ruiz MD CC: Fred Brooks MD; Ravindra Durham MD Signed HGB Collected: 03/28/2018 Status: F Source: [facility] 2:10 PM HEALTH SYSTEM REPOSITORY TYPE CODE TESTS RESULT OUT OF RANGE REFERENCE UNITS LAB HGBI(LOINC) 13.7-17.5 g/dL Low Hgb 7.7 Performed By: #### HGBI #### [place] [address] NURSING PROG Observed: 03/28/2018 Status: COMPLETED Source: [place] 11:41 AM [facility] OTHER [place] REPOSITORY HNO ID: [id number] Author: Ritu (Rn) INEZ Henely Service: Nursing Author Type: Registered Nurse Type: Nursing Progress Note Filed: 03/28/2018 11:44 AM Note Text: After sitting up in chair for 2 hours, pt became lightheaded, dizzy, diaphoretic, with tunnel vision. Pt placed back in bed, blood sugar 219, VS stable ( T36.7, P79, 142/61, 96%RA). No active bleeding noted this morning. PT states he started feeling better after getting back in bed. Dr. East notified of symptoms. Will continue to monitor. GLUCOSE METER Collected: 03/28/2018 Status: F Source: [facility] 11:23 AM HEALTH SYSTEM REPOSITORY TYPE CODE TESTS RESULT OUT OF REFERENCE UNITS RANGE LAB GLUBL(LOINC 70-99 mg/dL ) High Glucose Meter 219 Result Comment: RN NOTIFIED Performed By: #### GLMET #### [place] [address] PROGRESS Observed: 03/28/2018 Status: COMPLETED Source: [place] 9:50 AM [facility] OTHER [place] REPOSITORY HNO ID: [id number] Author: John M Dumford III Service: Infectious Disease Author Type: Physician Type: Progress Notes Filed: 03/28/2018 12:16 PM Note Text: INFECTIOUS DISEASE CONSULT PROGRESS NOTE SERVICE DATE: 03/28/2018 SERVICE TIME: 9:53 AM Attending additions in blue. CONSULTING SERVICE: Internal Medicine The patient is a 52-year-old man with past medical history of DM, ANDREW, history of testicular caner. Was transferred ?from [facility] Emergency Department for severe anemia, severe dyspnea and A fib with Rapid Ventricular Rate. Patient was found to have a?loculated left pleural effusion with left lower lobe infiltrate and left lower ?lobe pulmonary embolism. Due to to very low HB and suspected GI bleed patient could not be anticoagulated. IVC filter was placed yesterday by vascular. Patient got an EGD which showed 3 gastric ulcer but unlikely the source of bleeding. Was initially on Piperacillin/Tazobactam and now on Ceftriaxone and doxycycline. Urine Strep Pnemo was positive. Patient had a colonoscopy yesterday, tarry stool in the cecum, chest tube was also placed yesterday by CT thoracic surgery. ? ?Patient had just become very lightheaded when we entered room. We helped him from a chair back to the bed and he felt much better with lying flat. Has some pain in left chest from his chest tube. No current cough. No fevers or chills. He is not having nausea or diarrhea or rash with the antibiotics. Subjective INTERVAL HISTORY OF PRESENT ILLNESS: Patient feeling better. Does complain of pain. Breathing is better than yesterday. No fever overnight. Patient ambulating well. Current Facility-Administered Medications: pantoprazole DR 40 mg tab(s) (PROTONIX) 40 mg ORAL BID AC (0600/1600) insulin regular human injection (short acting) (NovoLIN R,HumuLIN R) SUBCUTANEOUS w MEALS AND HS oxyCODONE IR 5 mg tab(s) (ROXICODONE) 5 mg ORAL q 4 H PRN cefTRIAXone iv piggyback 2 g in dextrose (iso-osmotic) 50 mL (ROCEPHIN) 2 g INTRAVENOUS q 24 H doxycycline 100 mg in D5W 250 mL (VIBRAMYCIN) 100 mg INTRAVENOUS q 12 H dextrose 40 % 15 g 15 g ORAL PRN Or glucagon 1 mg injection (GLUCAGEN) 1 mg INTRAMUSCULAR PRN Or dextrose 50% in water 25 mL syringe 12.5 g INTRAVENOUS PRN prochlorperazine 5 mg injection (COMPAZINE) 5 mg INTRAVENOUS q 6 H PRN Objective PHYSICAL EXAM: Patient Vitals for the past 24 hrs: BP Temp Temp src Pulse Resp SpO2 Weight 03/28/18 0700 115/58 36.5 ?C (97.7 ?F) - 75 20 98 % - 03/28/18 0600 - - - - - - 125.9 kg (277 lb 8 oz) 03/28/18 0020 136/68 36.5 ?C (97.7 ?F) Oral 75 22 100 % - 03/27/18 2300 125/68 36.3 ?C (97.3 ?F) - 69 16 95 % - 03/27/18 2200 112/67 - - 67 15 95 % - 03/27/18 2118 118/70 - - 78 13 100 % - 03/27/18 2000 122/69 36.3 ?C (97.3 ?F) Axillary 78 19 100 % - 03/27/18 1900 113/52 - - 67 17 100 % - 03/27/18 1800 122/81 - - 73 14 100 % - 03/27/18 1700 123/65 - - 67 15 100 % - 03/27/18 1600 117/70 36.3 ?C (97.3 ?F) - 78 14 98 % - 03/27/18 1500 122/73 - - 77 18 100 % - 03/27/18 1400 117/65 - - 73 16 98 % - 03/27/18 1300 118/56 - - 71 16 97 % - 03/27/18 1200 111/64 36.2 ?C (97.2 ?F) - 68 14 97 % - 03/27/18 1100 120/57 - - 74 21 98 % - 03/27/18 1000 117/62 - - 71 16 99 % - Body mass index is 42.19 kg/m?. GENERAL: Alert, no distress, cooperative SKIN: Skin color, texture, turgor normal. No rashes or lesions. OROPHARYNX: Lips, mucosa, and tongue are normal.Teeth and gums, normal. Oropharynx normal. NECK: No jugulovenous distention, No carotid bruits, Carotid pulse normal contour, Supple LUNGS: decreased breath sounds on CARDIAC: Normal S1 and S2; no rubs, murmurs, or gallops ABDOMEN: Abdomen soft, non-tender, BS normal, No masses or organomegaly EXTREMITIES: 2+ pitting edema present. NEURO: Alert, oriented X 3, Gait normal. Non-focal. Reflexes normal and symmetric. Sensation grossly intact., Cranial nerves II-XII intact PULSES: 2+ radial, 2+ carotid DATA: Diagnostic tests reviewed for today's visit: Component Latest Ref Rng AND Units 03/27/2018 03/27/2018 03/28/2018 1:50 AM 2:20 PM WBC 4.23 - 9.07 thou/cmm 4.35 3.51 (L) RBC 4.63 - 6.08 mil/cmm 2.54 (L) 2.51 (L) HGB 13.7 - 17.5 g/dL 7.5 (L) 7.1 (L) 7.3 (L) Hematocrit 40.1 - 51.0 % 23.4 (L) 23.1 (L) MCV 83.2 - 95.6 fl 92.1 92.0 MCH 25.7 - 32.2 pg 29.5 29.1 MCHC 32.3 - 36.5 % 32.1 (L) 31.6 (L) RDW 11.6 - 14.4 % 20.0 (H) 20.7 (H) RDW-SD 36.1 - 45.8 fl 51.3 (H) 62.0 (H) Platelet Count 141 - 365 thou/cmm 101 (L) 75 (L) MPV 8.7 - 12.0 fl 9.6 10.2 Nucleated RBC % 0.0 - 0.2 % 0.5 (H) Nucleated RBC Absolute 0.00 - 0.01 thou/cmm 0.02 (H) Sodium 136 - 145 mEq/L 139 141 Potassium 3.5 - 5.1 mEq/L 3.6 3.7 Chloride 98 - 107 mEq/L 112 (H) 112 (H) CO2 21 - 32 mEq/L 23 23 Glucose 70 - 99 mg/dL 162 (H) 121 (H) BUN 7 - 18 mg/dL 7 4 (L) Creatinine 0.67 - 1.17 mg/dL 0.43 (L) 0.54 (L) Calcium 8.5 - 10.1 mg/dL 7.3 (L) 7.4 (L) Anion Gap 8 - 16 8 10 GLUCOSE METER 70 - 99 mg/dL 151 (H) Component Latest Ref Rng AND Units 03/27/2018 03/27/2018 6:30 PM 6:30 PM Specimen Type Pleural Pleural Appearance Bloody Body Fluid Color Sveta RBC, Body Fluid 0 /cmm 18,400 Nucleated Cells, Body Fluid 0 /cmm 167 Segs, Body Fluid % 19 Lymphs, Body Fluid % 53 Monos, Body Fluid % 16 Others, Body Fluid % 12 Amylase, Body Fluid U/L 21 Glucose, Body Fluid mg/dL 133 LD,Body Fluid U/L 217 pH, Body Fluid 7.680 Protein, Body Fluid g/dl 1.7 CXR: 03/28 Unaltered position of left thoracostomy tube with diminished lung volume on the left and persistent abnormal pleuroparenchymal opacity at the lung base. Right infrahilar opacity, possible atelectasis. Impression/Recommendations Active Problems: 1. Loculated left pleural effusion. Based on cell counts, looks more like hemothorax - Chest tube placed yesterday. - CXR today: looks about the same. May be slight increase in effusion compared to yesterday. Fluid studies: amylase: 21. Glucose: 133. LD: 217. Protein: 1.7. PH:7.680. RBC: 30247. No serum LDH or Protein sent. Cultures, AFB, cytology pending. - urine strep Pnemo positive. - Continue with Ceftriaxone and doxycycline. Will need 4-6 weeks. Patient received one dose of Piperacillin/Tazobactam Likely will go with shorter course of therapy if no growth from pleural fluid since this looks more likely hemothorax. - IVC filter in place. ? 2. Severe anemia, attributed to GI bleeding. - GI following ? 3. History of testicular cancer, treated with resection and radiation therapy. ? ? 4. Diabetes mellitus. ? 5. Atrial fibrillation. - Amio stopped. SIGNATURE: Shruthi Carmichael MD PATIENT NAME: Joel Matson DATE: March 28, 2018 TIME: 9:53 AM PAGER/CONTACT #: [phone] I saw and evaluated the patient. Discussed with the resident and agree with resident's findings and plan as documented in the resident's note with above changes. Continue doxycycline and ceftriaxone for pneumococcal pneumonia. Pleural fluid studies look to be consistent with hemothorax rather than empyema. Likely will give shorter course of therapy for the pneumococcal pneumonia with this in mind- if empyema was planning for 4-6 weeks of therapy. SIGNATURE: John Hernandez III, MD PATIENT NAME: Joel Matson DATE: March 28, 2018 TIME: 12:16 PM PAGER/CONTACT #: [phone] PROGRESS Observed: 03/28/2018 Status: COMPLETED Source: [place] 9:07 AM CLINIC OTHER CAMPUS REPOSITORY O ID: [id number] Author: Kym East Service: Hospital Medicine Author Type: Physician Type: Progress Notes Filed: 03/28/2018 9:36 AM Note Text: Subjective - Assuming care for [facility] Medicine, this is day 4 of this hospital stay, pt was transferred from ICU 03/27. Chart reviewed below. PAST MEDICAL HISTORY Diagnosis Date - Testicular cancer (HCC) 2002 Per review of home meds, was on diclofenac Per transfer note - 'Patient is a 52 y/o CM w/ a h/o testicular cancer s/p chemoradiation, DM type 2, ANDREW on CPAP who presented to [place] ED on 03/24/18 for the complaint of 2-3 weeks of worsening productive cough and left-sided chest pain after initial improvement with antibiotic treatment by his PCP. He went to ED after a near-syncopal event with associated bladder/bowel incontinence. At [place] ED, found to have Hb 4.[address] chest showed moderate left loculated pleural effusion, left basilar atelectasis vs consolidation, and LLL PE. Also found to be in Afib, started on amio gtt (which was stopped 03/25). He was transferred to [facility] ICU on 03/24 for treatment of acute hypoxic resp failure 2/2 pneumonia vs. PE, new-onset A-fib, and severe acute anemia likely due to blood loss. Patient received a total of 4 units pRBC since arrival, maintaining Hb ?~ 7.5. ID followed and started Rocephin and doxy for suspected pneumonia. 03/25: EGD showed 3 small ulcers that were initially unlikely source of blood loss. No intervention needed. Planned for colonoscopy. 03/26: Vascular placed IVC filter (note, no thrombus seen on 03/24 US of BLE). 03/27: Per GI, colonoscopy revealed melena in the cecum, likely blood originating from upper GI tract, and one polyp and diverticula. No signs of active bleeding noted. GI said if further bleeding, will need capsule endoscopy. Please see operative report once released. Planned for thoracostomy per CT surgery the same day, with plan to check fluid studies. Patient is being monitored with q12h hemoglobin checks. Hb has been stable at 7.1 to 7.5' Per CTS today - '52 year old male with Left Parapneumonic Effusion s/p CT on 03/27, PE/DVT and DVT s/p EGD with PUD and Colonoscopy - med mgmt per primary - cont Left CT to -20 sxn - daily CXR pending - Pleural Cx and Cytology pending - Rocephin/Doxy per ID - Ambulate - IS - pain control' Per ID on 03/27 - '1. Loculated left pleural effusion. Likely secondary to LLL Pneumonia secondary left lower Pulmonary Embolism. - Patient to get Chest tube placed today. Send for pleural studies. - urine strep Pnemo positive. - Continue with Ceftriaxone and doxycycline. Patient received one dose of Piperacillin/Tazobactam - IVC filter in place.' Per trauma on 03/27 - left chest tube placed at bedside Long discussion with pt and his son at bedside, pt is anxious to get up and out of bed, 'I know I will feel better', says his treatment for testicular cancer was 'years ago, I just follow up yearly'. Has pain from chest tube, but says breathing is much better. Was originally from [place]. Appetite good, no nausea or vomiting, has some edema in hands, 'they pumped me full of fluids'. Objective - 03/27/18 2300 03/28/18 0020 03/28/18 0600 03/28/18 0700 BP: 125/68 136/68 115/58 Pulse: 69 75 75 Resp: 16 22 20 Temp: 36.3 ?C (97.3 ?F) 36.5 ?C (97.7 ?F) 36.5 ?C (97.7 ?F) TempSrc: Oral SpO2: 95% 100% 98% Weight: 125.9 kg (277 lb 8 oz) Height: Results for JOEL MATSON ( ) as of 03/28/2018 09:10 Ref. Range 03/27/2018 23:46 03/28/2018 03:18 03/28/2018 06:43 03/28/2018 07:20 Sodium Latest Ref Range: 136 - 145 mEq/L 141 Potassium Latest Ref Range: 3.5 - 5.1 mEq/L 3.7 Chloride Latest Ref Range: 98 - 107 mEq/L 112 (H) CO2 Latest Ref Range: 21 - 32 mEq/L 23 BUN Latest Ref Range: 7 - 18 mg/dL 4 (L) Creatinine Latest Ref Range: 0.67 - 1.17 mg/dL 0.54 (L) Glucose Latest Ref Range: 70 - 99 mg/dL 121 (H) Calcium Latest Ref Range: 8.5 - 10.1 mg/dL 7.4 (L) Anion Gap Latest Ref Range: 8 - 16 10 eGFR Latest Ref Range: >60mL/min/1.73m2 >60 Hematocrit Latest Ref Range: 40.1 - 51.0 % 23.1 (L) WBC Latest Ref Range: 4.23 - 9.07 thou/cmm 3.51 (L) RBC Latest Ref Range: 4.63 - 6.08 mil/cmm 2.51 (L) HGB Latest Ref Range: 13.7 - 17.5 g/dL 7.3 (L) Platelet Count Latest Ref Range: 141 - 365 thou/cmm 75 (L) MCV Latest Ref Range: 83.2 - 95.6 fl 92.0 MCH Latest Ref Range: 25.7 - 32.2 pg 29.1 MCHC Latest Ref Range: 32.3 - 36.5 % 31.6 (L) MPV Latest Ref Range: 8.7 - 12.0 fl 10.2 RDW-SD Latest Ref Range: 36.1 - 45.8 fl 62.0 (H) RDW Latest Ref Range: 11.6 - 14.4 % 20.7 (H) XR CHEST 1V FRONTAL Unknown Rpt GLUCOSE METER Latest Ref Range: 70 - 99 mg/dL 139 (H) 151 (H) GEN - morbidly obese 52 yo wm reclining in bed, talks w/o SOB, son at bedside HEENT - PERR, some teeth missing, mouth moist CARD - sounds RRR PULM - clear anterior, left chest tube with some serous drainage ABD - soft, nontender EXT - SCDs on, edema of hands, little LE NEURO - no focal deficits Assessment/plan - 1) CAP/parapneumonic effusion/ANDREW - as per CTS and ID, pt feels much better, is now on room air, studies pending 2) Acute blood loss anemia/EGD on 03/25 showed 3 ulcers, colonoscopy on 03/27 was normal - stable, of note, pt was diclofenac per home med list 3) Afib - was likely due to acute blood loss anemia, appears in NSR now, no anticoag due to #2 4) hx of Testicular cancer - does not appear active by history, path and cytology pending on pleural fluid 5) DM -stable 6) Acute on chronic debility - PT and OT evals, up out of bed 7) GI and DVT prophylaxis - PPI, had IVC filter placed on 03/26 while in ICU 8) Disposition - as above, will follow, appreciate ID and CTS for this very special pt GLUCOSE METER Collected: 03/28/2018 Status: F Source: [facility] 6:43 AM HEALTH SYSTEM REPOSITORY TYPE CODE TESTS RESULT OUT OF REFERENCE UNITS RANGE LAB GLUBL(LOINC 70-99 mg/dL ) High Glucose Meter 151 Result Comment: RN NOTIFIED Performed By: #### GLMET #### [facility] [address] [address] CHEST 1 VIEW Observed: 03/28/2018 Status: F Source: [facility] 6:41 AM HEALTH SYSTEM REPOSITORY Performed at [facility] APPROVED BY: Jordin Ramirez MD PORTABLE FRONTAL CHEST, 0628 HOURS: CLINICAL INDICATION: Follow-up empyema. COMPARISON: Daily prior chest radiographs. Left-sided thoracostomy tube appears in unaltered position terminating in the infrahilar region. Lung volume is diminished on the left. There is persistent abnormal pleuroparenchymal opacity at the lung base with poor visualization of the hemidiaphragm. There is right infrahilar opacity. The lateral costophrenic angle appears clear. There is partial silhouetting of left heart border. IMPRESSION: Unaltered position of left thoracostomy tube with diminished lung volume on the left and persistent abnormal pleuroparenchymal opacity at the lung base. Right infrahilar opacity, possible atelectasis. PROGRESS Observed: 03/28/2018 Status: COMPLETED Source: [place] 6:05 AM CLINIC OTHER CAMPUS REPOSITORY HNO ID: [id number] Author: Alejandro Kade Zehra Service: Thoracic Surgery Author Type: Physician Type: Progress Notes Filed: 03/28/2018 5:37 PM Note Text: Thoracic Surgery Progress Note SERVICE DATE: 03/28/2018 Subjective SUBJECTIVE: NAEON, left chest discomfort from tube Denies N/V/CP/SOB Diet: DIET CARBOHYDRATE CONTROLLED Objective OBJECTIVE: Vitals: Temp (24hrs), Av.3 ?C (97.4 ?F), Min:36.2 ?C (97.2 ?F), Max:36.5 ?C (97.7 ?F) BP 136/68 Pulse 75 Temp 36.5 ?C (97.7 ?F) (Oral) Resp 22 Ht 172.7 cm (5' 8) Wt 127.8 kg (281 lb 12 oz) SpO2 100% BMI 42.84 kg/m? O2 Therapy: Continuous Positive Airway Pressure IANDO: Date 03/27/18 07 - 03/28/18 0659 03/28/18 07 - 03/29/18 0659 Shift 0263-5021 8406-8241 3697-2574 24 Hour Total 3093-7200 1112-7010 7907-9491 24 Hour Total I N T A K E IV 350 5100 059 5139 IVPB 350 250 600 NS 0.9% 700 700 NS .45% 150 513 663 Shift Total 350 1500 223 1173 O U T P U T Urine 550 197 517 6918 Void (ml) 550 555 413 7626 Chest Tube 525 250 775 Chest Tube Output (Chest Tube 03/27/18 1828 Left Lateral Tube #1) 525 250 775 Shift Total 550 181 901 7461 Weight (kg) 127.8 127.8 127.8 127.8 127.8 127.8 127.8 127.8 MEDICATIONS Current Facility-Administered Medications: pantoprazole DR 40 mg tab(s) (PROTONIX) 40 mg ORAL BID AC (0600/1600) oxyCODONE IR 5 mg tab(s) (ROXICODONE) 5 mg ORAL q 6 H PRN insulin regular human injection (short acting) (NovoLIN R,HumuLIN R) SUBCUTANEOUS w MEALS AND HS NaCl 0.45% iv infusion 100 mL/hr INTRAVENOUS CONTINUOUS cefTRIAXone iv piggyback 2 g in dextrose (iso-osmotic) 50 mL (ROCEPHIN) 2 g INTRAVENOUS q 24 H doxycycline 100 mg in D5W 250 mL (VIBRAMYCIN) 100 mg INTRAVENOUS q 12 H dextrose 40 % 15 g 15 g ORAL PRN Or glucagon 1 mg injection (GLUCAGEN) 1 mg INTRAMUSCULAR PRN Or dextrose 50% in water 25 mL syringe 12.5 g INTRAVENOUS PRN prochlorperazine 5 mg injection (COMPAZINE) 5 mg INTRAVENOUS q 6 H PRN Labs: Recent Labs 03/28/18 0318 03/27/18 1420 03/27/18 0150 NA 141 -- 139 K 3.7 -- 3.6 CHLOR 112* -- 112* CO2 23 -- 23 BUN 4* -- 7 CREAT 0.54* -- 0.43* GLUC 121* -- 162* ANION 10 -- 8 CA 7.4* -- 7.3* WBC 3.51* -- 4.35 HB 7.3* 7.1* 7.5* HCT 23.1* -- 23.4* PLT 75* -- 101* INR -- -- 1.00 Exam: GENERAL: No distress, Alert NEURO: AANDOx3, CN II-XII grossly intact HEENT: normocephalic, atraumatic LUNGS: Unlabored breathing O2 Therapy: Continuous Positive Airway Pressure, Left CT -20 sxn, serous output, no leak CARDIAC: Regular rate and rhythm as above ABDOMEN: Soft, non-tender, non-distended EXTREMITIES: FLORES, No deformities, No edema SKIN: Skin color, texture, turgor normal, No rashes or lesions ASSESSMENT AND PLAN: Active Hospital Problems Diagnosis Date Noted - Obstructive sleep apnea 03/26/2018 Chronic - Diabetes ([facility]) 03/26/2018 Chronic - Nicotine use disorder, F17.2 03/25/2018 - Obesity, Class III, BMI >= 40 03/25/2018 - Malnutrition of moderate degree ([facility]) 03/25/2018 - Anemia 03/24/2018 - Atrial fibrillation with RVR ([facility]) 03/24/2018 - Pulmonary embolism ([facility]) 03/24/2018 - GI bleed 03/24/2018 Overview Note: Added automatically from request for surgery [id number] 52 year old male with Left Parapneumonic Effusion s/p CT on 03/27, PE/DVT and DVT s/p EGD with PUD and Colonoscopy - med mgmt per primary - cont Left CT to -20 sxn - daily CXR pending - Pleural Cx and Cytology pending - Rocephin/Doxy per ID - Ambulate - IS - pain control Assessment and plan discussed with attending: Dr. Montelongo SIGNATURE: Santos Wen MD PATIENT NAME: Joel Matson DATE: March 28, 2018 TIME: 6:05 AM Pager: [phone] Patient seen up on floor now CXR OK and tube draining. P-encourage ambulation, pulmon toilet, incentive spirometer and continue chest tube on suction. BASIC PANEL Collected: 03/28/2018 Status: F Source: [facility] 3:18 AM HEALTH SYSTEM REPOSITORY TYPE CODE TESTS RESULT OUT OF REFERENCE UNITS RANGE LAB NA(LOINC) 136-145 mEq/L Sodium Blood 141 LAB K(LOINC) 3.5-5.1 mEq/L Potassium Blood 3.7 LAB CL(LOINC) 98-107 mEq/L Chloride High Blood 112 LAB CO2(LOINC) 21-32 mEq/L CO2 Blood 23 LAB GLU(LOINC) 70-99 mg/dL Glucose High Blood 121 LAB BUN(LOINC) 7-18 mg/dL Low BUN Blood 4 LAB CREA(LOINC 0.67-1.17 mg/dL ) Low Creatinine Blood 0.54 LAB CA(LOINC) 8.5-10.1 mg/dL Low Calcium Blood 7.4 LAB ANGAP(LOIN 8-16 C) Anion Gap 10 Performed By: #### P8 #### [place] [address] MDRD GFR Collected: 03/28/2018 Status: F Source: [facility] 3:18 AM HEALTH SYSTEM REPOSITORY TYPE CODE TESTS RESULT OUT OF RANGE REFERENCE UNITS LAB GFRFN(LOINC >60mL/min/1.73m ) 2 eGFR >60 Result Comment: If the patient is , multiply the result by 1.210. Performed By: #### GFR #### [place] [address] HEMOGRAM Collected: 03/28/2018 Status: F Source: [facility] 3:18 AM HEALTH SYSTEM REPOSITORY TYPE CODE TESTS RESULT OUT OF REFERENCE UNITS RANGE LAB WBC(LOINC) 4.23-9.07 thou/cmm Low WBC 3.51 LAB RBC(LOINC) 4.63-6.08 mil/cmm Low RBC 2.51 LAB HGB(LOINC) 13.7-17.5 g/dL Low Hgb 7.3 LAB HCT(LOINC) 40.1-51.0 % Low Hct 23.1 LAB MCV(LOINC) 83.2-95.6 fl MCV 92.0 LAB MCH(LOINC) 25.7-32.2 pg MCH 29.1 LAB MCHC(LOINC) 32.3-36.5 % Low MCHC 31.6 LAB RDW(LOINC) 11.6-14.4 % High RDW 20.7 LAB RDWSD(LOINC 36.1-45.8 fl ) High RDW SD 62.0 LAB PLT(LOINC) 141-365 thou/cmm Low Platelet 75 Result Comment: Smear scanned tech agrees with platelet count LAB MPV(LOINC) 8.7-12.0 fl MPV 10.2 Performed By: #### CBC1 #### [place] [address] GLUCOSE METER Collected: 03/27/2018 Status: F Source: [facility] 11:46 PM HEALTH SYSTEM REPOSITORY TYPE CODE TESTS RESULT OUT OF REFERENCE UNITS RANGE LAB GLUBL(LOINC 70-99 mg/dL ) High Glucose Meter 139 Performed By: #### GLMET #### [place] [address] GLUCOSE METER Collected: 03/27/2018 Status: F Source: [facility] 8:10 PM HEALTH SYSTEM REPOSITORY TYPE CODE TESTS RESULT OUT OF REFERENCE UNITS RANGE LAB GLUBL(LOINC 70-99 mg/dL ) High Glucose Meter 121 Performed By: #### GLMET #### [place] [address] CHEST 1 VIEW Observed: 03/27/2018 Status: F Source: [facility] 6:46 PM HEALTH SYSTEM REPOSITORY Performed at [facility] APPROVED BY: Franklin Winn MD EXAM TITLE: CHEST 1 VIEW DATE: 03/27/2018 18:42 INDICATION: Left chest tube placement COMPARISON: 03/27/2018 at 6:28 AM FINDINGS: There has been recent placement of a left-sided thoracostomy tube with associated marked improvement in aeration at the left lung base. There is some residual opacity suggesting subsegmental atelectasis. Although lines overlie the chest, there is no visible pneumothorax and the lungs are otherwise clear. The heart is not enlarged. Osseous structures are intact. IMPRESSION: Recent placement of chest tube with interval improvement in left pleural effusion. PROCEDURE Observed: 03/27/2018 Status: COMPLETED Source: [place] 6:38 PM CLINIC OTHER CAMPUS REPOSITORY HNO ID: [id number] Author: Bobo (Thomas Macias Service: Trauma Author Type: Resident Type: Procedures Filed: 03/27/2018 6:40 PM Note Text: BEDSIDE PROCEDURE NOTE PROCEDURE DATE: March 27, 2018 PROCEDURE START TIME: 1800 PRIMARY PROCEDURALIST: Bobo Macias MD ZIPPER SETTER(S): None INFORMED CONSENT: Informed Consent obtained and on the chart UNIVERSAL PROTOCOL / SAFETY CHECKLIST Sign in Communication: Completed Time Out: Team Confirms the Correct Patient, Correct Procedure, Correct Site and Site Marking, Correct Position (if applicable), Prep and Dry Time (if applicable). Time: 1800 Affirmation of Time Out: YES Sign Out Discussion: Completed PROCEDURE: CHEST TUBE INSERTION Indication: Empyema Analgesia/Sedation: Lidocaine 1% 40cc, Versed 2mg, Fentanyl 125mcg Site: Left anterior intercostal space Site Prep: Chlorhexidine gluconate 4% which was allowed to dry A scalpel was used to make a 3 cm incision at the intercostal space. The pleural cavity was entered using a breann clamp. There was return of serosanguineous fluid upon entering the pleural cavity. The appropriate location in the pleural cavity was confirmed by noting the presence of lung. A number 32 chest tube was inserted into the cavity to 20 cm. The tube was secured with sutures and tape. A xeroform dressing was placed around the tube. The tube was connected to wall suction. Patient tolerated procedure well. Complications: None Chest x-ray ordered to confirm placement, results pending. Specimens: Pleural Fluid for Cultures, Routine Pleural Fluid Studies and Other Studies for Cytology Estimated Blood Loss: Scant SIGNATURE: Bobo Macias MD PATIENT NAME: Joel Matson DATE: March 27, 2018 TIME: 6:38 PM PAGER/CONTACT #: [phone] PH, BODY FLUID Collected: 03/27/2018 Status: F Source: [facility] 6:30 PM HEALTH SYSTEM REPOSITORY TYPE CODE TESTS RESULT OUT OF RANGE REFERENCE UNITS LAB PHBFL(LOINC ) pH, Body 7.680 Fluid Performed By: #### PHBF #### [place] [address] AMYLASE,BODY FLUID Collected: 03/27/2018 Status: F Source: [facility] 6:30 PM HEALTH SYSTEM REPOSITORY TYPE CODE TESTS RESULT OUT OF RANGE REFERENCE UNITS LAB BFAMY(LOINC U/L ) 21 Amylase,Body Fluid Result Comment: Performance characteristics of this assay have not been evaluated for body fluids. No reference range has been established. Test analyzed by the [employer] [place] method. LAB BFTYP(LOINC) Specimen Type Pleural Performed By: #### AMYBF #### [place] [address] GLUCOSE,BODY FLUID Collected: 03/27/2018 Status: F Source: [facility] 6:30 PM [facility] REPOSITORY TYPE CODE TESTS RESULT OUT OF RANGE REFERENCE UNITS LAB GLUFL(LOINC mg/dL ) Glucose, 133 Fluid Result Comment: Performance characteristics of this assay have not been evaluated for body fluids. No reference range has been established. Test analyzed by the [employer] [place] method. Performed By: #### GLUBF #### [place] [address] LDH,BODY FLUID Collected: 03/27/2018 Status: F Source: [facility] 6:30 [facility] SYSTEM REPOSITORY TYPE CODE TESTS RESULT OUT OF RANGE REFERENCE UNITS LAB LDHFL(LOINC U/L ) LDH, Body 217 Fluid Result Comment: Performance characteristics of this assay have not been evaluated for body fluids. No reference range has been established. Test analyzed by the [employer] [place] method. Performed By: #### LDHBF #### [place] [address] PROTEIN, BODY FLUID Collected: 03/27/2018 Status: F Source: [facility] 6:30 PM HEALTH SYSTEM REPOSITORY TYPE CODE TESTS RESULT OUT OF RANGE REFERENCE UNITS LAB TPFLU(LOINC g/dl ) Protein, 1.7 Fluid Result Comment: Performance characteristics of this assay have not been evaluated for body fluids. No reference range has been established. Test analyzed by the [employer] [place] method. Performed By: #### TPBF #### [place] [address] BF CELL COUNT/DIFF Collected: 03/27/2018 Status: F Source: [facility] 6:30 PM HEALTH SYSTEM REPOSITORY TYPE CODE TESTS RESULT OUT OF REFERENCE UNITS RANGE LAB BFSIT(LOIN C) Specimen type Pleural LAB BFAPP(LOIN C) Appearance Bloody LAB BFCOL(LOIN C) Body Fluid Color Sveta LAB BFRBC(LOIN 0 /cmm C) BF/RBC 78733 LAB BFNUC(LOIN 0 /cmm C) BF/Nucleated 167 Cells LAB BFSEG(LOIN % C) BF/Segs 19 LAB BFLYM(LOIN % C) BF/Lymphs 53 LAB BFMON(LOIN % C) BF/Monos 16 LAB BFOTH(LOIN % C) BF/Others 12 LAB BFINT(LOIN C) Body Fluid Interp See below Result Comment: No malignant cells identified. LAB PATH#(LOINC) Interp. by: See below Result Comment: Derik Adhikari M.D., Pathologist Performed By: #### BFCD #### [place] [address] Observed: 03/27/2018 Status: F Source: [facility] [employer] [facility] BODY 6:30 PM HEALTH SYSTEM FLUID REPOSITORY Test performed at [facility] No growth No organisms seen Performed By: #### C_BF #### [place] [address] Observed: 03/27/2018 Status: F Source: [facility] [employer] [facility]GAL 6:30 PM HEALTH SYSTEM REPOSITORY Test performed at [facility] No fungus (yeast or mold) cultured Performed By: #### C_FUN #### [place] [address] Observed: 03/27/2018 Status: F Source: [facility] [employer] [facility] 6:30 PM HEALTH SYSTEM (TB) REPOSITORY Test performed at [facility] No acid fast bacilli cultured No acid fast bacilli seen Performed By: #### C_AFB #### [place] [address] BRIEF OP NOT Observed: 03/27/2018 Status: COMPLETED Source: [place] 5:19 PM CLINIC OTHER CAMPUS REPOSITORY HNO ID: [id number] Author: Navarro Kang Service: Gastroenterology Author Type: Physician Type: Brief Op Note Filed: 04/04/2018 1:06 PM Note Text: BRIEF OPERATIVE / PROCEDURE NOTE LOG ID: [id number] SURGERY/PROCEDURE DATE: 03/27/2018 SURGEON(S)/PROCEDURALIST(S) AND ZIPPER SETTER(S): Navarro Kang - Primary endoscopist INDICATION: MELENA PRE-OP/PRE-PROCEDURE DIAGNOSIS: GI bleedin POST-OP/POST-PROCEDURE DIAGNOSIS: Diverticulosis, sig. Colon , without bleeding. Otherwise normal colon and terminal ileum PROCEDURE(S): colonoscopy ANESTHESIA: Conscious Sedation FINDINGS: diverticulosis. Small amount of tarry stool in cecum. Normal terminal ileum . No blood coming from above. ESTIMATED BLOOD LOSS: None SPECIMENS: none COMPLICATIONS: None POST-PROCEDURE RECOMMENDATIONS/FOLLOW UP: Capsule endo if bleeding recurs Dictated-[id number] SIGNATURE: Navarro Kang MD PATIENT NAME: Joel Matson DATE: 03/27/2018 TIME: normal CYTOLOGY, MEDICAL Observed: 03/27/2018 Status: F Source: [facility] 5:15 PM HEALTH SYSTEM REPOSITORY Test performed at [place] [address] NAME: JOEL MATSON REQUESTING: DAVID CERRATO M.D. DIAGNOSIS LEFT PLEURAL FLUID - NEGATIVE FOR MALIGNANT CELLS. SEE COMMENT NARRATIVE FEW MESOTHELIAL CELLS WITH HISTIOCYTES AND SCATTERED LYMPHOCYTES WITH PMNS. COMMENT A PANEL OF IMMUNOSTAINS WAS PERFORMED AND DEMONSTRATED MANY CD 163 POSITIVE HISTIOCYTES AND A FEW WT1 POSITIVE MESOTHELIAL CELLS AND RARE CD 117 POSITIVE CELLS. NO DEFINITE MALIGNANY PROCESS IS IDENTIFIED. DERIK ADHIKARI ALSO REVIEWED THE CASE AND CONCURS WITH THE DIAGNOSIS. SPECIMEN: A) PLB, PLEURAL FLUID W/CELL BLOCK LEFT Description: Materials Prepared & Examined: Volume: ......... 75 # of Cell Blocks: .......... 1 Color: ............ Sveta # of Monolayers: .......... 1 Consistency: ...... Cloudy # of Smear slides: ......... 1 Other: ............. 3 # of Slides: ................. immunostains 7 Electronically Signed: 03/31/2018 Screened by: MARITZA CHACON([facility]) Signed Out by: MIGUEL ANGEL COLEMAN M.D. PATHOLOGIST Printed on: March 31, 2018 Page 1 of 1 Performed By: #### CYTOM #### [place] [address] NURSING PROG Observed: 03/27/2018 Status: COMPLETED Source: [place] 4:27 PM CLINIC OTHER CAMPUS REPOSITORY HNO ID: [id number] Author: Carolina (Rn) Kendall RN Service: (none) Author Type: Registered Nurse Type: Nursing Progress Note Filed: 03/27/2018 4:28 PM Note Text: Was unable to retrieve transverse colon polyp. Dr Jorge Luis lester. NURSING PROG Observed: 03/27/2018 Status: COMPLETED Source: [place] 3:44 PM [facility] REPOSITORY HNO ID: [id number] Author: Kandace (Rn) Jose Elias, RN Service: (none) Author Type: Registered Nurse Type: Nursing Progress Note Filed: 03/27/2018 3:44 PM Note Text: Nursing Progress Note Patient Name: Joel Matson Patient Location: [place] [address] [address]* Colonoscopy done at bedside per . 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 No Advance Directive: Health Literacy: 1. How often do you need to have someone help you when you read instructions, pamphlets, or other written material from your doctor or pharmacy? Never - 1 2. How confident are you filling out medical forms by yourself? Extremely - 1 If Patient scores > 3 on either question, the following interventions were put into place: Patient did not score > 3 FUNCTIONAL AND COGNITIVE/BEHAVIORAL PRIOR TO ADMISSION: Baseline Mental Status: Alert AND Oriented, Person, Place , Time and Situation Functional Status: Independent Does Patient Currently Receive Any Community Services or Home Care? None Equipment Prior to Admission: None Has the Patient Been in a Correction Facility in the Past 30 days? No SOCIAL: Living Arrangement: Home Lives With: Spouse Financial Resources: Employed: . Primary Contact: Extended Emergency Contact Information Primary Emergency Contact: Alvino Matson Mobile Relation: Son Secondary Emergency Contact: Nina Matson Mobile Relation: Spouse Supportive: Yes Other Important Patient Contacts: None Caregiver Assessment: Caregiver is ready, willing and able to meet the patient's needs as recommended by the inter-professional team? Yes Patient's transition needs and plan for meeting these needs: no Does the patient have an acute stroke diagnosis, or has the patient had a stroke during this admission? No Medication Adherence: I am convinced of the importance of my prescription medication: Agree completely - 0 I worry that my prescription medication will do more harm than good to me Disagree mostly - 0 I feel financially burdened by my [id number] expenses for my prescription medication: Agree somewhat - 0 Patient is categorized as low risk < 2 Are you interested in bedside delivery of your medications? No Food Concerns: In the Last Month, Have You had Trouble Getting Food? No trouble getting food During the Last Month, Have You Worried Whether Your Food Would Run Out Before You Had Enough Money to Buy More? No Is the Patient Psychosocially Complex? No ASSESSMENT AND PLAN: Medical Needs: None Psychosocial Needs: None FREEDOM OF CHOICE EXPLAINED: N/A POTENTIAL TRANSITION PLANS To Be Determined Pt's pharmacy [facility] SIGNATURE: Monica Mays RN PATIENT NAME: Joel Matson DATE: March 27, 2018 TIME: 3:04 PM PAGER/CONTACT #: [phone] PLAN OF CARE Observed: 03/27/2018 Status: COMPLETED Source: [place] 2:53 PM CLINIC OTHER CAMPUS REPOSITORY HNO ID: [id number] Author: Courtney Mcnair (Pharmacist) Service: Pharmacy Author Type: Pharmacist Type: Plan of Care Filed: 03/27/2018 3:22 PM Note Text: MEDICATION HISTORY AND MEDICATION RECONCILIATION Patient Name:Jorge Matson : 1965 Source of history:Pharmacy records: [facility] ([facility]) and [facility] Medication Nonadherence Identified: No barriers noted The above information represents the best possible medication history: Yes Reconciliation completed? No Additional comments: Please note the following changes to the initial FOOD SAFETY SPECIALIST medication list: -Removed 4 compounded prescriptions (incomplete details provided; from 08/01/2007) -Removed exanatide (incomplete details provided; from 08/01/2007) -Added all medications below Of note: -Cefdinir 300 mg BID x 10 days, ZPak, Tamiflu, and prednisone (filled at [facility] on 03/03/18) -Baclofen, gabapentin, diclofenac were only for a 14-day supply (filled at [facility] on 03/10/18) -Valtrex filled 03/10/18 for a 1-week supply -Guaifenesin AC cough syrup 10 mL every 4 hours as needed for cough (250 mL; 6-day supply) filled 03/03/18. Please see individual medications for comments/last fill dates. Allergies: ALLERGIES No Known Allergies Preferred Pharmacy: [email or web address]. Current FOOD SAFETY SPECIALIST Medications: Prior to Admission medications as of 03/27/18 1452 Medication Sig Last Dose Taking empagliflozin (JARDIANCE) 25 mg tablet Take 25 mg by mouth once daily. Yes insulin degludec-liraglutide (XULTOPHY) 100 unit-3.6 mg/mL Inject 50 Units subcutaneously once daily. Do not mix with other insulins. Yes testosterone (ANDROGEL) 20.25 mg/1.25 gram (1.62 %) glpm Apply 2 pumps as directed once daily. Yes metFORMIN (GLUCOPHAGE) 1,000 mg tablet Take 1,000 mg by mouth twice daily with meals. Yes linagliptin (TRADJENTA) 5 mg tab Take 1 tablet by mouth once daily. Yes rosuvastatin (CRESTOR) 40 mg tablet Take 40 mg by mouth daily at bedtime. Yes losartan (COZAAR) 100 mg tablet Take 100 mg by mouth once daily. Yes diclofenac, EC, (VOLTAREN) 50 mg EC tablet Take 50 mg by mouth twice daily. With food Filled 03/10/18 for a 14-day supply only. Yes baclofen (LIORESAL) 10 mg tablet Take 10 mg by mouth daily at bedtime. Filled 03/10/18 for a 14-day supply only. Yes gabapentin (NEURONTIN) 400 mg capsule Take 400 mg by mouth three times daily. Filled 03/10/18 for a 14-day supply only. Yes escitalopram oxalate (LEXAPRO) 10 mg tablet Take 10 mg by mouth once daily. Yes albuterol HFA (VENTOLIN HFA) 90 mcg/actuation inhaler Inhale 2 Puffs as instructed every 4 hours as needed for Wheezing/Shortness of Breath. Yes COURTNEY MCNAIR, PHARMACIST March 27, 2018 2:53 PM HGB Collected: 03/27/2018 Status: F Source: [facility] 2:20 PM HEALTH SYSTEM REPOSITORY TYPE CODE TESTS RESULT OUT OF RANGE REFERENCE UNITS LAB HGBI(LOINC) 13.7-17.5 g/dL Low Hgb 7.1 Performed By: #### HGBI #### [facility] [address] [place] [address] PROGRESS Observed: 03/27/2018 Status: COMPLETED Source: [place] 12:16 PM CLINIC OTHER CAMPUS REPOSITORY HNO ID: [id number] Author: John Hernandez III Service: Infectious Disease Author Type: Physician Type: Progress Notes Filed: 03/27/2018 4:13 PM Note Text: INFECTIOUS DISEASE CONSULT PROGRESS NOTE SERVICE DATE: 03/27/2018 SERVICE TIME: 12:17 PM CONSULTING SERVICE: ICU The patient is a 52-year-old man with past medical history of DM, ANDREW, history of testicular caner. Was transferred from [facility] Emergency Department for severe anemia, severe dyspnea and A fib with Rapid Ventricular Rate. Patient was found to have a loculated left pleural effusion with left lower lobe infiltrate and left lower lobe pulmonary embolism. Due to to very low HB and suspected GI bleed patient could not be anticoagulated. IVC filter was placed yesterday by vascular. Patient got an EGD which showed 3 gastric ulcer but unlikely the source of bleeding is scheduled to get a colonoscopy today and then chest tube placed for pleural effusion. Was initially on Piperacillin/Tazobactam and now on Ceftriaxone and doxycycline. Subjective INTERVAL HISTORY OF PRESENT ILLNESS: No overnight events. Patient has mild cough better than before and left sided neck pain. No chest pain. Current Facility-Administered Medications: pantoprazole 40 mg injection (PROTONIX) 40 mg INTRAVENOUS DAILY (6 AM) NaCl 0.45% iv infusion 100 mL/hr INTRAVENOUS CONTINUOUS cefTRIAXone iv piggyback 2 g in dextrose (iso-osmotic) 50 mL (ROCEPHIN) 2 g INTRAVENOUS q 24 H doxycycline 100 mg in D5W 250 mL (VIBRAMYCIN) 100 mg INTRAVENOUS q 12 H potassium chloride 80-120 mEq oral liquid 80-120 mEq ORAL/FEEDING TUBE PRN potassium chloride iv piggyback 20 mEq in sterile water 100 mL 20 mEq INTRAVENOUS PRN magnesium sulfate in water 2 g in sterile water 50 ml 2 g INTRAVENOUS PRN sodium phosphate 45 mmol in NaCl 0.9% 250 mL 45 mmol INTRAVENOUS PRN calcium gluconate 4 g in NaCl 0.9% 250 mL 4 g INTRAVENOUS PRN dextrose 40 % 15 g 15 g ORAL PRN Or glucagon 1 mg injection (GLUCAGEN) 1 mg INTRAMUSCULAR PRN Or dextrose 50% in water 25 mL syringe 12.5 g INTRAVENOUS PRN insulin regular human injection (short acting) (NovoLIN R,HumuLIN R) SUBCUTANEOUS q 6 H ondansetron (PF) 4 mg injection (ZOFRAN) 4 mg INTRAVENOUS q 6 H PRN prochlorperazine 5 mg injection (COMPAZINE) 5 mg INTRAVENOUS q 6 H PRN Objective PHYSICAL EXAM: Patient Vitals for the past 24 hrs: BP Temp Temp src Pulse Resp SpO2 Weight 03/27/18 1000 117/62 - - 71 16 99 % - 03/27/18 0900 127/72 - - 69 14 98 % - 03/27/18 0800 112/82 - - 75 16 99 % - 03/27/18 0700 119/59 - - 67 14 97 % - 03/27/18 0600 115/60 - - 68 13 97 % - 03/27/18 0500 107/58 - - 67 15 98 % - 03/27/18 0400 108/51 36.4 ?C (97.5 ?F) Axillary 65 13 95 % 127.8 kg (281 lb 12 oz) 03/27/18 0300 108/60 - - 75 18 97 % - 03/27/18 0200 105/61 - - 75 19 97 % - 03/27/18 0100 111/63 - - 71 14 97 % - 03/27/18 0000 95/73 36.5 ?C (97.7 ?F) Axillary 76 20 98 % - 03/26/18 2300 102/62 - - 95 23 98 % - 03/26/18 2200 (!) 79/63 - - 96 26 100 % - 03/26/18 2100 123/59 - - 78 19 98 % - 03/26/18 2000 (!) 97/42 36.6 ?C (97.9 ?F) Axillary 74 18 100 % - 03/26/18 1900 120/65 - - 76 19 97 % - 03/26/18 1800 106/69 - - 73 18 97 % - 03/26/18 1700 88/54 - - 84 17 98 % - 03/26/18 1600 109/63 36.6 ?C (97.9 ?F) - 78 19 99 % - 03/26/18 1500 132/81 - - 77 19 99 % - 03/26/18 1400 120/71 - - 72 18 98 % - 03/26/18 1330 115/62 - - 71 16 98 % - 03/26/18 1300 124/68 - - 71 15 99 % - Body mass index is 42.84 kg/m?. GENERAL: Alert, no distress, cooperative SKIN: Skin color, texture, turgor normal. No rashes or lesions. OROPHARYNX: Lips, mucosa, and tongue are normal.Teeth and gums, normal. Oropharynx normal. NECK: No jugulovenous distention, No carotid bruits, Carotid pulse normal contour, Supple LUNGS: Decreased breath sounds on the left. Crackles present. CARDIAC: Normal S1 and S2; no rubs, murmurs, or gallops ABDOMEN: Abdomen soft, non-tender, BS normal, No masses or organomegaly EXTREMITIES: Extremities normal, no deformities, edema, clubbing or skin discoloration. Good capillary refill., No ulcers NEURO: Alert, oriented X 3, Gait normal. Non-focal. Reflexes normal and symmetric. Sensation grossly intact., Cranial nerves II-XII intact PULSES: 2+ radial, 2+ carotid DATA: Diagnostic tests reviewed for today's visit: Component Latest Ref Rng AND Units 03/26/2018 03/26/2018 03/26/2018 03/27/2018 03/27/2018 03/27/2018 2:00 AM 4:00 PM 11:27 PM 1:50 AM 6:16 AM 11:34 AM WBC 4.23 - 9.07 thou/cmm 6.14 4.35 RBC 4.63 - 6.08 mil/cmm 2.55 (L) 2.54 (L) HGB 13.7 - 17.5 g/dL 7.5 (L) 7.4 (L) 7.5 (L) Hematocrit 40.1 - 51.0 % 23.0 (L) 23.4 (L) MCV 83.2 - 95.6 fl 90.2 92.1 MCH 25.7 - 32.2 pg 29.4 29.5 MCHC 32.3 - 36.5 % 32.6 32.1 (L) RDW 11.6 - 14.4 % 18.4 (H) 20.0 (H) RDW-SD 36.1 - 45.8 fl 48.0 (H) 51.3 (H) Platelet Count 141 - 365 thou/cmm 107 (L) 101 (L) MPV 8.7 - 12.0 fl 9.2 9.6 Nucleated RBC % 0.0 - 0.2 % 1.6 (H) 0.5 (H) Nucleated RBC Absolute 0.00 - 0.01 thou/cmm 0.10 (H) 0.02 (H) Sodium 136 - 145 mEq/L 139 139 Potassium 3.5 - 5.1 mEq/L 3.2 (L) 3.6 Chloride 98 - 107 mEq/L 108 (H) 112 (H) CO2 21 - 32 mEq/L 27 23 Glucose 70 - 99 mg/dL 189 (H) 162 (H) BUN 7 - 18 mg/dL 13 7 Creatinine 0.67 - 1.17 mg/dL 0.53 (L) 0.43 (L) Calcium 8.5 - 10.1 mg/dL 7.0 (L) 7.3 (L) Anion Gap 8 - 16 7 (L) 8 Prothrombin Time 9.3 - 11.9 sec 10.6 INR 1.00 eGFR >60mL/min/1.73m2 >60 >60 STREP PNEUMONIAE AG Positive for pneumococcal pneumonia LEGIONELLA AG, URINE Presumptive negative for L. pneumophilia serogroup 1 antigen . . . GLUCOSE METER 70 - 99 mg/dL 189 (H) 157 (H) 161 (H) Impression/Recommendations 1. Loculated left pleural effusion. Likely secondary to LLL Pneumonia secondary left lower Pulmonary Embolism. - Patient to get Chest tube placed today. Send for pleural studies. - urine strep Pnemo positive. - Continue with Ceftriaxone and doxycycline. Patient received one dose of Piperacillin/Tazobactam - IVC filter in place. 2. Severe anemia, attributed to GI bleeding. - awaiting colonoscopy 3. History of testicular cancer, treated with resection and radiation therapy. 4. Diabetes mellitus. 5. Atrial fibrillation. - Amio stopped. SIGNATURE: Shruthi Carmichael MD PATIENT NAME: Joel Matson DATE: March 27, 2018 TIME: 12:16 PM PAGER/CONTACT #: [phone] I saw and evaluated the patient. Discussed with the resident and agree with resident's findings and plan as documented in the resident's note. Concerned for left sided empyema related to S. pneumo pneumonia. Continue doxycycline plus ceftriaxone. Once cultures available from pleural fluid then will narrow antibiotics. Will need 4-6 weeks of oral therapy. SIGNATURE: John Hernandez III, MD PATIENT NAME: Joel Matson DATE: March 27, 2018 TIME: 4:12 PM PAGER/CONTACT #: [phone] GLUCOSE METER Collected: 03/27/2018 Status: F Source: [facility] 11:34 AM HEALTH SYSTEM REPOSITORY TYPE CODE TESTS RESULT OUT OF REFERENCE UNITS RANGE LAB GLUBL(LOINC 70-99 mg/dL ) High Glucose Meter 161 Result Comment: RN NOTIFIED Performed By: #### GLMET #### [place] [address] NURSING PROG Observed: 03/27/2018 Status: COMPLETED Source: [place] 11:10 AM CLINIC OTHER CAMPUS REPOSITORY HNO ID: [id number] Author: Kandace CoreasRnScarlett Laura RN Service: (none) Author Type: Registered Nurse Type: Nursing Progress Note Filed: 03/27/2018 11:33 AM Note Text: Nursing Progress Note Patient Name: Joel Matson Patient Location: [place] [address] [address]* RN attempted 3 IV's, unsuccessful. Resident notified that pt has no access. Picc team notified. Picc team will attempt peripheral IV later today. This note was completed by: Kandace Laura RN NURSING PROG Observed: 03/27/2018 Status: COMPLETED Source: [place] 10:01 AM [facility] REPOSITORY HNO ID: [id number] Author: Kandace [place] RN Service: (none) Author Type: Registered Nurse Type: Nursing Progress Note Filed: 03/27/2018 10:02 AM Note Text: Nursing Progress Note Patient Name: Joel Matson Patient Location: [place] [address] [address]* Rounds with , residents, RN, and pharm D. This note was completed by: Kandace [place] RN NURSING PROG Observed: 03/27/2018 Status: COMPLETED Source: [place] 9:30 AM [facility] OTHER [place] REPOSITORY HNO ID: [id number] Author: Kandace [place] RN Service: (none) Author Type: Registered Nurse Type: Nursing Progress Note Filed: 03/27/2018 2:38 PM Note Text: Nursing Progress Note Patient Name: Joel Matson Patient Location: [place] [id number]* Tap water enema given per order of . This note was completed by: Kandace Laura RN PROGRESS Observed: 03/27/2018 Status: COMPLETED Source: [place] 9:02 AM CLINIC OTHER CAMPUS REPOSITORY HNO ID: [id number] Author: Ivan Cagle Service: Critical Care Author Type: Resident Type: Progress Notes Filed: 03/27/2018 12:22 PM Note Text: Attestation signed by Gerardo Nunez at 03/27/2018 1:34 PM (Updated) [facility] STAFF PHYSICIAN NOTE OF PERSONAL INVOLVEMENT IN CARE I have reviewed the progress note obtained and documented by the resident and I personally participated in the quintana components. I have discussed the case and management of the patient's care. The following comments revise or confirm relevant quintana components of the note. Interval history: Patient is resting comfortably in bed without any current complaints. Exam: RRR Clear to auscultation without wheezing bilaterally anteriorly. Good bowel sounds, soft, nontender, nondistended. Mild peripheral edema bilaterally. Dry, intact skin with good turgor. Data: Reviewed as detailed below. Most recent imaging personally reviewed by myself. IMPRESSION: ACTIVE PROBLEM LIST Anemia Atrial Fibrillation With Rvr (Hcc) Pulmonary Embolism (Hcc) Nicotine use disorder, F17.2 Obesity, Class III, BMI >= 40 Malnutrition of Moderate Degree (Hcc) GI Bleed Diabetes (Hcc) Obstructive Sleep Apnea Acute blood loss anemia Loculated left pleural effusion PLAN: IV fluids. PPI. Check serial hemoglobins. Transfuse PRN. Keep NPO. Colonoscopy as per GI. No anticoagulation for now given the acute blood loss anemia, but has an IVC filter in place. Await chest tube placement as per Cardiovascular/Thoracic Surgery. Check pleural fluid studies from Pleuravac once it is available. Is stable and OK for transfer to regular medical floor from Pulmonary/Critical Care standpoint after colonoscopy provided there are no colonoscopic findings necessitating ongoing ICU care. This patient has a high probability of sudden, clinically significant deterioration, which requires the highest level of physician preparedness to intervene urgently. I managed/supervised life or organ supporting interventions that required frequent physician assessment. I devoted my full attention to the direct care of this patient for the amount of time indicated below. Time I spent with family or surrogate(s) is included only if the patient was incapable of providing the necessary information or participating in medical decision making. Time devoted to teaching and to any procedures I billed separately is not included. Patient/Family Updated: Patient, Joel Matson, was updated regarding the goals of care, medical plan for the day, devops consultant recommendations, medical disposition and current medical condition/prognosis as and if clinically indicated. All questions and concerns were answered and addressed at this juncture. They were notified on March 27, 2018 at 09:20. The duration of the conversation was five minutes. PROGNOSIS: Good Code status: Full Code. Discussed with Registered Nurse, Pharmacist and Residents while performing multidisciplinary rounds. Critical Care Documentation: The patient has the following organ/system impairment(s): Acute blood loss anemia Time spent providing critical care services: 20 minutes. SIGNATURE: Gerardo Nunez MD [facility] PAGER:[phone] DATE of SERVICE: March 27, 2018 TIME of SERVICE: 1:24 PM Medical Intensive Care Progress Note March 27, 2018 Patient Name: Joel Matson [id number] Admission Date: 03/24/2018 Length of Stay: 3 Primary Service: Medical Intensive Care Assessment and plan will be discussed with Dr. Nunez and he will addend this note as he sees appropriate. Please await his recommendations. Case background: Patient is a 52 y/o CM w/ a h/o testicular cancer s/p chemoradiation, DM type 2, ANDREW on CPAP who presented to [place] ED on 03/24/18 for the complaint of 2-3 weeks of worsening productive cough and left-sided chest pain after initial improvement with antibiotic treatment by his PCP. He went to ED after a near-syncopal event with bladder/bowel incontinence. At [place], found to have Hb 4.[address] chest showed moderate left loculated pleural effusion, left basilar atelectasis vs consolidation, and LLL PE. Also found to be in Afib, started on amio gtt (which was stopped 03/25). He was transferred to [facility] ICU on 03/24 for treatment of acute hypoxic resp failure 2/2 pneumonia vs. PE, new-onset A-fib, and severe acute anemia likely due to blood loss. Patient received a total of 4 units pRBC since arrival, maintaining Hb ~ 7.5. ID followed and started Rocephin and doxy for suspected pneumonia. 03/25: EGD showed 3 small ulcers that are unlikely source of blood loss. No intervention needed. Planned for colonoscopy. 03/26: Vascular placed IVC filter (note, no thrombus seen on 03/24 US of BLE). 03/27: Colonoscopy per GI. Plan for thoracostomy per CT surgery after. Interval History for 03/27/18: Patient seen and examined in the AM. Admits limb swelling.Denies complaints detailed in review of systems below. NPO since midnight. Tolerating colon prep for colonoscopy at 1:30 PM today. No overnight acute events reported. Review of Systems: PER INTERVAL HISTORY ABOVE. Denies fevers, chills, rigors, malaise, chest pain, orthopnea, dyspnea, nausea, vomiting, abdominal pain, dysuria, hematuria, lightheadedness. Objective Present Condition: 03/27/18 0400 03/27/18 0500 03/27/18 0600 03/27/18 0700 BP: 108/51 107/58 115/60 119/59 Pulse: 65 67 68 67 Resp: 13 15 13 14 Temp: 36.4 ?C (97.5 ?F) TempSrc: Axillary SpO2: 95% 98% 97% 97% Weight: 127.8 kg (281 lb 12 oz) Height: PHYSICAL EXAMINATION: Performed with findings detailed below on 03/27/18 General: NAD, AANDO x3 , cooperative. Head: Normocephalic. Atraumatic. Eyes: PERRL. EOMI. No scleral icterus noted. Conjunctiva pink. Throat: Oral mucosa moist. No oropharyngeal erythema. No eruptions or exudates. Uvula midline. Cardiovascular: RRR, No M/G/R Respiratory: Lungs CTAB, No W/R/R, No crackles. Diminished at bilateral bases. Abdomen: Obese abdomen. Soft. Non-tender. Non-distended. No palpable masses or hepatosplenomegaly. BSx4, normoactive. No bruits. Extremities: 2+ pitting upper extremity edema. No cyanosis or clubbing. Pulses: Dorsalis pedis, posterior tibial, and radial pulses 2+ bilaterally. Capillary refill < 2 seconds. Neuro: Non-focal exam. Sensation intact in 4 extremities. Strength 4/4 in 4 extremities. Current Facility-Administered Medications: cefTRIAXone iv piggyback 2 g in dextrose (iso-osmotic) 50 mL (ROCEPHIN) 2 g INTRAVENOUS q 24 H Keli E Bollin Last Rate: 100 mL/hr at 03/27/18 0831 2 g at 03/27/18 0831 doxycycline 100 mg in D5W 250 mL (VIBRAMYCIN) 100 mg INTRAVENOUS q 12 H Keli E Bollin Last Rate: 250 mL/hr at 03/26/18 1629 100 mg at 03/26/[address] 40 mg tab(s) (PROTONIX) 40 mg ORAL DAILY (6 AM) David Ruiz 40 mg at 03/26/18 0515 potassium chloride 80-120 mEq oral liquid 80-120 mEq ORAL/FEEDING TUBE PRN Renetta (Felton) MD Esvin potassium chloride iv piggyback 20 mEq in sterile water 100 mL 20 mEq INTRAVENOUS PRN Renetta Mcallister MD Last Rate: 400 mL/hr at 03/26/18 1004 80 mEq at 03/26/18 1004 magnesium sulfate in water 2 g in sterile water 50 ml 2 g INTRAVENOUS PRN Renetta Mcallister MD sodium phosphate 45 mmol in NaCl 0.9% 250 mL 45 mmol INTRAVENOUS PRN Renetta Mcallister MD calcium gluconate 4 g in NaCl 0.9% 250 mL 4 g INTRAVENOUS PRN Renetta Mcallister MD NaCl 0.9% iv infusion 100 mL/hr INTRAVENOUS CONTINUOUS Renetta Mcallister MD Last Rate: 100 mL/hr at 03/27/18 0629 100 mL/hr at 03/27/18 0629 dextrose 40 % 15 g 15 g ORAL PRN Renetta Mcallister MD Or glucagon 1 mg injection (GLUCAGEN) 1 mg INTRAMUSCULAR PRN Renetta Mcallister MD Or dextrose 50% in water 25 mL syringe 12.5 g INTRAVENOUS PRN Renetta Mcallister MD insulin regular human injection (short acting) (NovoLIN R,HumuLIN R) SUBCUTANEOUS q 6 H Renetta Mcallister MD 2 Units at 03/27/18 0616 ondansetron (PF) 4 mg injection (ZOFRAN) 4 mg INTRAVENOUS q 6 H PRN Renetta Mcallister MD 4 mg at 03/24/18 1250 iv contrast (radiology procedure) INTRAVENOUS DIRECTED PRN Renetta Mcallister MD prochlorperazine 5 mg injection (COMPAZINE) 5 mg INTRAVENOUS q 6 H PRN Renetta Mcallister MD Notable morning labs: Basic labs as below. Labs: CBC: Recent Labs 03/27/18 0150 03/26/18 1600 03/26/18 0200 03/25/18200903/25/18 1355 03/25/18 0800 03/25/18 0210 03/24/18 1955 03/24/18 1345 WBC 4.35 -- 6.14 -- -- -- 9.23* -- 8.91 HB 7.5* 7.4* 7.5* 7.3* 8.1* 6.5* 7.2* 6.3* 4.7* HCT 23.4* -- 23.0* -- -- -- 21.3* -- 15.3* PLT 101* -- 107* -- -- -- 116* -- 146 MCV 92.1 -- 90.2 -- -- -- 86.9 -- 94.4 COAG: Recent Labs 03/27/18 0150 03/24/18 1600 APTT -- 19.1* INR 1.00 -- BMP: Recent Labs 03/27/18 0150 03/26/18 0200 03/25/18 0210 03/24/18 1345 GLUC 162* 189* 207* 310* NA 139 139 139 137 K 3.6 3.2* 3.5 3.8 CHLOR 112* 108* 108* 105 CO2 23 27 26 27 ANION 8 7* 9 9 BUN 7 13 18 15 CREAT 0.43* 0.53* 0.53* 0.52* CHEM: Recent Labs 03/27/18 0150 03/26/18 0200 03/25/18 0210 03/24/18 1400 03/24/18 1345 ALB -- -- -- 1.7* -- TPROT -- -- -- 4.8* -- CA 7.3* 7.0* 7.1* -- 7.3* HEPATIC: Recent Labs 03/24/18 1400 ALKPHOS 66 ALT 18 AST 19 TBILI 1.7* URINALYSIS:No results for input(s): PH, SPGR, UGLUC, UBILI, UKET, UHB, UPROT, UROBIL, UWBC, SSA in the last 168 hours. Invalid input(s): NITR CARDIAC: No results for input(s): CKTEST, CKMB, CKMBP in the last 168 hours.TROPONIN@:8,No results found for: BNP:8)@ Intake/Output Summary (Last 24 hours) at 03/27/18 0903 Last data filed at 03/27/18 0756 Gross per 24 hour Intake 5102 ml Output 1551 ml Net 3551 ml Serum creatinine: 0.43 mg/dL (L) 03/27/18 0150 Estimated creatinine clearance: 265 mL/min (A) Assessment/Plan Reviewed in its entirety and amended as appropriate on 03/27/18 Cardiovascular Central venous access: None. Summary of pressor usage: None. Echocardiogram findings: None on file. EKG findings: None on file. IV fluid administration: Currently IV 1/2 NS at 100 cc/hr Current antihypertensive agents: None. Current anticoagulation / antiplatelet agents: None. Paroxsymal A.fib -Rate improved with amiodarone, gtt stopped after 03/25/18 Respiratory CXR findings: 03/27: Slightly improved left-sided pleural effusion, interval improvement of hilar vascular congestion when compared to 03/[address] chest findings: None this admission. Respiratory support measures: 97% on room air. Breathing treatments in use: None. Thoracic surgery followin/20: Recommend large-bore chest tube. INR in AM. Acute respiratory failure -O2 NC wean as tolerated. Pneumonia with loculated pleural effusion -Chest surgery consult for chest tube - ID following. See microbiology and infectious below. Infectious Antibiotic allergies: None. Antibiotics in use: Ceftriaxone 2 g IV qd ; Doxy 100 mg q12h (both Day 2) Microbiology data summary: S.pneumo Ag postive, ULeg negative, RespCx pending, Histo Ag pending ; MRSA nares negative. Infectious diseases followin/20: Started ceftriaxone and doxy ; send pleural fluid for Cx and cytology ; Follow data (above) Pneumonia with management as noted above. Renal / Patel in place?: None. Diuretics in use: None. Shift total output: 1.3 L Shift net I/O: + 5,246 Estimate of recent hourly output: ~200 - 250 cc/hr Weight change since admission: + 7 kg. Consider gentle diuresis to address fluid excess or reducing IVF flow rate. Neuro Sedation: None. Head imaging: None. No current concern for related abnormal data or patient history on present admission. Gastrointestinal GI prophylaxis: Protonix 40 mg po qd GI tubes and feeds / current diet: NPO since midnight. Gastroenterology followin/20: Colonoscopy today 03/27 after NPO at midnight and AM colon prep. GI bleed - monitor HgB, transfuse <7 - EGD yesterday did not reveal bleeding - GI following - Protonix daily - IV fluids - Colonoscopy in the PM 03/27. Endocrine / Metabolic Insulin orders: Regular SSI (2 units for 201-250) Hematologic DVT prophylaxis: Bilateral SCDs - No anticoagulant due to GIB / blood loss anemia. Transfusions this admission: Total of 4 units RBC transfused, last on 03/25. H/O PE/DVT -anticoagulation contraindicated due to GI bleed - IVC filter placed 03/26/18 Subjective PAST MEDICAL HISTORY Diagnosis Date - Testicular cancer (HCC) 2002 No current facility-administered medications on file prior to encounter. Current Outpatient Prescriptions on File Prior to Encounter: COMPOUNDED PRESCRIPTION testosterone cream for testic CA COMPOUNDED PRESCRIPTION glucophage dose not known Exenatide 10 mcg/0.04 mL SUBCUTANEOUS PnIj Take one(1) tablet two(2) times daily. COMPOUNDED PRESCRIPTION diabetic med, name/dose unknown COMPOUNDED PRESCRIPTION lexapro, dose unknown Signed: Ivan Cagle DO, PGY-1 Pager: [phone] [facility] Date: March 27, 2018 Recommendations are not finalized until co-signed by Staff physician. CHEST 1 VIEW Observed: 03/27/2018 Status: F Source: [facility] 6:35 AM [place] SYSTEM REPOSITORY Performed at [facility] APPROVED BY: Jacobo Orozco MD EXAM TITLE: CHEST 1 VIEW DATE: 03/27/2018 06:33 COMPARISON: 03/25/2018 in addition to other prior studies CLINICAL INDICATION/HISTORY: Shortness of breath, pleural effusion TECHNIQUE: AP upright portable chest FINDINGS: No significant change. Again noted is a moderate-sized left- sided pleural effusion with presumed underlying compressive atelectasis. The right lung appears clear. Normal, stable cardiac size. No acute bony abnormality. IMPRESSION: No change. Moderate left-sided pleural effusion. Observed: 03/27/2018 Status: CANCELLED Source: [facility] 6:20 AM HEALTH SYSTEM RESPIRATORY REPOSITORY Test performed at [facility] >25 epithelial cells/LPF. Smear suggests specimen unacceptable for culture due to oropharyngeal contamination. No further testing will be done unless Microbiology lab is contacted within 48 hours. Please submit another specimen. GLUCOSE METER Collected: 03/27/2018 Status: F Source: [facility] 6:16 AM HEALTH SYSTEM REPOSITORY TYPE CODE TESTS RESULT OUT OF REFERENCE UNITS RANGE LAB GLUBL(LOINC 70-99 mg/dL ) High Glucose Meter 157 Performed By: #### GLMET #### [facility] [address] [place] [address] PROGRESS Observed: 03/27/2018 Status: COMPLETED Source: [place] 6:09 AM CLINIC OTHER CAMPUS REPOSITORY HNO ID: [id number] Author: Alejandro Montelongo Service: Thoracic Surgery Author Type: Physician Type: Progress Notes Filed: 03/27/2018 7:08 PM Note Text: Thoracic Surgery Progress Note SERVICE DATE: 03/27/2018 Subjective SUBJECTIVE: NAEON, denies bleeding, up in chair resting comfortably Denies N/V/CP/SOB Diet: DIET NPO Objective OBJECTIVE: Vitals: Temp (24hrs), Av.4 ?C (97.6 ?F), Min:36 ?C (96.8 ?F), Max:36.6 ?C (97.9 ?F) BP 107/58 Pulse 67 Temp 36.4 ?C (97.5 ?F) (Axillary) Resp 15 Ht 172.7 cm (5' 8) Wt 127.8 kg (281 lb 12 oz) SpO2 98% BMI 42.84 kg/m? O2 Therapy: Room Air IANDO: Date 03/26/18 07 - 03/27/18 0659 03/27/18 07 - 03/28/18 0659 Shift 5577-6343 6957-3511 7210-3862 24 Hour Total 2263-3836 3336-5833 5099-4312 24 Hour Total I N T A K E PO 1320 6955 158 6728 PO 1320 8748 164 5431 IV 980 9314 048 2598 IVPB 250 250 NS 0.9% 530 3136 382 0563 Zosyn IV 50 50 Ceftriaxone IV 50 50 Potassium IVPB 400 400 Shift Total 2300 3074 1037 6411 O U T P U T Urine 0 085 180 4641 Void (ml) 0 707 393 0986 Urine Incontinence/Not Saved 2 x 2 x 4 x Urine Not Saved 1 1 # of BMs Stool Incontinence 1 x 1 x Number of BMs 0 x 4 x 4 x 8 x Shift Total 0 471 225 5726 Weight (kg) 124 124 127.8 127.8 127.8 127.8 127.8 127.8 MEDICATIONS Current Facility-Administered Medications: cefTRIAXone iv piggyback 2 g in dextrose (iso-osmotic) 50 mL (ROCEPHIN) 2 g INTRAVENOUS q 24 H doxycycline 100 mg in D5W 250 mL (VIBRAMYCIN) 100 mg INTRAVENOUS q [address] 40 mg tab(s) (PROTONIX) 40 mg ORAL DAILY (6 AM) potassium chloride 80-120 mEq oral liquid 80-120 mEq ORAL/FEEDING TUBE PRN potassium chloride iv piggyback 20 mEq in sterile water 100 mL 20 mEq INTRAVENOUS PRN magnesium sulfate in water 2 g in sterile water 50 ml 2 g INTRAVENOUS PRN sodium phosphate 45 mmol in NaCl 0.9% 250 mL 45 mmol INTRAVENOUS PRN calcium gluconate 4 g in NaCl 0.9% 250 mL 4 g INTRAVENOUS PRN NaCl 0.9% iv infusion 100 mL/hr INTRAVENOUS CONTINUOUS dextrose 40 % 15 g 15 g ORAL PRN Or glucagon 1 mg injection (GLUCAGEN) 1 mg INTRAMUSCULAR PRN Or dextrose 50% in water 25 mL syringe 12.5 g INTRAVENOUS PRN insulin regular human injection (short acting) (NovoLIN R,HumuLIN R) SUBCUTANEOUS q 6 H ondansetron (PF) 4 mg injection (ZOFRAN) 4 mg INTRAVENOUS q 6 H PRN iv contrast (radiology procedure) INTRAVENOUS DIRECTED PRN prochlorperazine 5 mg injection (COMPAZINE) 5 mg INTRAVENOUS q 6 H PRN Labs: Recent Labs 03/27/18 0150 03/26/18 1600 03/26/18 0200 03/24/18 1400 03/24/18 1345 NA 139 -- 139 < > -- 137 K 3.6 -- 3.2* < > -- 3.8 CHLOR 112* -- 108* < > -- 105 CO2 23 -- 27 < > -- 27 BUN 7 -- 13 < > -- 15 CREAT 0.43* -- 0.53* < > -- 0.52* GLUC 162* -- 189* < > -- 310* ANION 8 -- 7* < > -- 9 CA 7.3* -- 7.0* < > -- 7.3* ALB -- -- -- -- 1.7* -- AST -- -- -- -- 19 -- ALT -- -- -- -- 18 -- ALKPHOS -- -- -- -- 66 -- TBILI -- -- -- -- 1.7* -- WBC 4.35 -- 6.14 < > -- 8.91 HB 7.5* 7.4* 7.5* < > -- 4.7* HCT 23.4* -- 23.0* < > -- 15.3* PLT 101* -- 107* < > -- 146 LACT -- -- -- -- -- 1.1 INR 1.00 -- -- -- -- -- < > = values in this interval not displayed. Exam: GENERAL: No distress, Alert NEURO: AANDOx3, CN II-XII grossly intact HEENT: normocephalic, atraumatic LUNGS: Unlabored breathing O2 Therapy: Room Air, 95% SpO2 CARDIAC: Regular rate and rhythm as above ABDOMEN: Soft, non-tender, non-distended EXTREMITIES: FLORES, No deformities, No edema SKIN: Skin color, texture, turgor normal, No rashes or lesions ASSESSMENT AND PLAN: Active Hospital Problems Diagnosis Date Noted - Obstructive sleep apnea 03/26/2018 Chronic - Diabetes ([facility]) 03/26/2018 Chronic - Nicotine use disorder, F17.2 03/25/2018 - Obesity, Class III, BMI >= 40 03/25/2018 - Malnutrition of moderate degree ([facility]) 03/25/2018 - Anemia 03/24/2018 - Atrial fibrillation with RVR ([facility]) 03/24/2018 - Pulmonary embolism ([facility]) 03/24/2018 - GI bleed 03/24/2018 Overview Note: Added automatically from request for surgery [id number] 52 year old male with GIB, PE s/p IVC Filter, Left Pulm Effusion - mgmt per MICU - C-scope with GI today - plan for Left CT today after scope Assessment and plan discussed with attending: Dr. Montelongo SIGNATURE: Santos Wen MD PATIENT NAME: Joel Matson DATE: March 27, 2018 TIME: 6:09 AM Pager: [phone] Patient seen and now has tube in which we offered to do yesterday, but pulm wanted to wait till after today's testing. Will review cxr. HEMOGRAM Collected: 03/27/2018 Status: F Source: [facility] 1:50 AM HEALTH SYSTEM REPOSITORY TYPE CODE TESTS RESULT OUT OF REFERENCE UNITS RANGE LAB WBC(LOINC) 4.23-9.07 thou/cmm WBC 4.35 LAB RBC(LOINC) 4.63-6.08 mil/cmm Low RBC 2.54 LAB HGB(LOINC) 13.7-17.5 g/dL Low Hgb 7.5 LAB HCT(LOINC) 40.1-51.0 % Low Hct 23.4 LAB MCV(LOINC) 83.2-95.6 fl MCV 92.1 LAB MCH(LOINC) 25.7-32.2 pg MCH 29.5 LAB MCHC(LOINC 32.3-36.5 % ) Low MCHC 32.1 LAB RDW(LOINC) 11.6-14.4 % RDW High 20.0 LAB RDWSD(LOIN 36.1-45.8 fl C) RDW High SD 51.3 LAB PLT(LOINC) 141-365 thou/cmm Low Platelet 101 LAB MPV(LOINC) 8.7-12.0 fl MPV 9.6 LAB NRBCR(LOIN 0.0-0.2 % C) High Nucleated RBC % 0.5 LAB NRBCA(LOIN 0.00-0.01 thou/cmm C) High Nucleated RBC 0.02 Absolute Performed By: #### CBC1 #### [place] [address] BASIC PANEL Collected: 03/27/2018 Status: F Source: [facility] 1:50 AM HEALTH SYSTEM REPOSITORY TYPE CODE TESTS RESULT OUT OF REFERENCE UNITS RANGE LAB NA(LOINC) 136-145 mEq/L Sodium Blood 139 LAB K(LOINC) 3.5-5.1 mEq/L Potassium Blood 3.6 LAB CL(LOINC) 98-107 mEq/L Chloride High Blood 112 LAB CO2(LOINC) 21-32 mEq/L CO2 Blood 23 LAB GLU(LOINC) 70-99 mg/dL Glucose High Blood 162 LAB BUN(LOINC) 7-18 mg/dL BUN Blood 7 LAB CREA(LOINC 0.67-1.17 mg/dL ) Low Creatinine Blood 0.43 LAB CA(LOINC) 8.5-10.1 mg/dL Low Calcium Blood 7.3 LAB ANGAP(LOIN 8-16 C) Anion Gap 8 Performed By: #### P8 #### [place] [address] MDRD GFR Collected: 03/27/2018 Status: F Source: [facility] 1:50 AM HEALTH SYSTEM REPOSITORY TYPE CODE TESTS RESULT OUT OF RANGE REFERENCE UNITS LAB GFRFN(LOINC >60mL/min/1.73m ) 2 eGFR >60 Result Comment: If the patient is , multiply the result by 1.210. Performed By: #### GFR #### [place] [address] PROTIME Collected: 03/27/2018 Status: F Source: [facility] 1:50 AM HEALTH SYSTEM REPOSITORY TYPE CODE TESTS RESULT OUT OF REFERENCE UNITS RANGE LAB PTI(LOINC) 9.3-11.9 sec Prothrombin Time 10.6 LAB INR(LOINC) INR 1.00 Result Comment: Standard Therapy 2.0-3.0 High Dose 2.5-3.5 Performed By: #### PT #### [facility] [address] [place], [place] [address] OPERATIVE NO Observed: 03/27/2018 Status: COMPLETED Source: [place] 12:00 AM CLINIC OTHER CAMPUS REPOSITORY HNO ID: [id number] Author: Navarro Kang Service: Gastroenterology Author Type: Physician Type: Operative Report Filed: 03/31/2018 6:11 PM Note Text: [facility] - Operative Report SURGEON: Navarro Kang MD PATIENT NAME: JOEL MATSON CSN: [id number] DATE OF SURGERY: 03/27/2018 DATE OF : 1965 SEX/AGE: M/52 PATIENT TYPE: I HOSP SVC: [facility] LOCATION: [id number] DATE OF SURGERY: 03/27/2018 SURGEON: Navarro Kang MD PROCEDURE PERFORMED: Colonoscopy with ileoscopy. Scope advanced to the distal 10 cm of ileum. Hot snare polypectomy at the transverse colon was performed. COMPLICATIONS NOTED: None. MEDICATION GIVEN: Fentanyl 150 mcg IV and Versed 4 mg IV. INSTRUMENT USED: Olympus CF videocolonoscope. INDICATION FOR THE PROCEDURE: This 52-year-old male patient, who is on anticoagulation for DVT, was admitted with history of bloody stools and a significant drop in hemoglobin and hematocrit. TECHNIQUE: Informed consent was obtained. The patient was placed in left lateral position in the Intensive Care Unit bed. IV sedation was given using fentanyl and Versed in divided doses until the desired level of sedation was achieved and maintained. The patient's vital signs were monitored throughout the procedure. A videocolonoscope was passed per anal route into the rectum and advanced up to the bottom of cecum without any difficulty. Copious irrigation was used to clear out foamy material and coffee-grounds material in the cecum. Scope was then inserted into the terminal ileum for approximately 10 cm. Lavage of the terminal ileum was also performed, even though the contents were bilious and otherwise clear. The endoscope was then gradually withdrawn down to the level of the rectum where it was retroflexed before retrieving it completely. FINDINGS: Small amount of melenic material noted in the cecum, which was suctioned out. No blood was seen in the entire colon from anal verge to the cecum otherwise. No fresh blood was noted. There was a small polyp noted at the transverse colon, which was resected with hot snare. The terminal ileum was noted to be normal with no blood coming from the upper part of the small bowel. RECOMMENDATION: If the patient continues to bleed or bleeding recurs, we will need capsule endoscopy. Navarro Kang MD Gastroenterology GM:ariesl /[id number] cc:Navarro Kang MD GLUCOSE METER Collected: 03/26/2018 Status: F Source: [facility] 11:27 PM HEALTH SYSTEM REPOSITORY TYPE CODE TESTS RESULT OUT OF REFERENCE UNITS RANGE LAB GLUBL(LOINC 70-99 mg/dL ) High Glucose Meter 189 Performed By: #### GLMET #### [facility] [address] [place] [address] GLUCOSE METER Collected: 03/26/2018 Status: F Source: [facility] 5:51 PM HEALTH SYSTEM REPOSITORY TYPE CODE TESTS RESULT OUT OF REFERENCE UNITS RANGE LAB GLUBL(LOINC 70-99 mg/dL ) High Glucose Meter 277 Result Comment: RN NOTIFIED Performed By: #### GLMET #### [address] SEND OUT Collected: 03/26/2018 Status: F Source: [facility] 4:47 PM HEALTH SYSTEM REPOSITORY TYPE CODE TESTS RESULT OUT OF REFERENCE UNITS RANGE LAB NAME1(LOINC ) Test Name resp pcr panel LAB RES(LOINC) Result See Below Result Comment: Negative: No organisms were detected. COMMENT-The Film Array Respiratory Panel detects DNA or RNA for the following organisms: Adenovirus Coronavirus(targets 229E,HKU1,NL63 and OC43) Human metapneumovirus Rhinovirus/Enterovirus Influenza A virus Influenza B virus Parainfluenza Virus 1 Parainfluenza Virus 2 Parainfluenza Virus 3 Parainfluenza Virus 4 Respiratory Syncyctial virus (RSV) Bordetella parapertussis Bordetella pertussis Chlamydophila pneumoniae Mycoplasma pneumoniae LAB ADDR(LOINC) Lab Name/Address See below Result Comment: Testing performed at [address] [place] [address] Performed By: #### MISC2 #### [place] [address] HGB Collected: 03/26/2018 Status: F Source: [facility] 4:00 PM HEALTH SYSTEM REPOSITORY TYPE CODE TESTS RESULT OUT OF RANGE REFERENCE UNITS LAB HGBI(LOINC) 13.7-17.5 g/dL Low Hgb 7.4 Performed By: #### HGBI #### [place] [address] Observed: 03/26/2018 Status: F Source: [facility] LEGIONELLA AG, URINE 4:00 PM HEALTH SYSTEM REPOSITORY Test performed at [facility] Presumptive negative for L. pneumophilia serogroup 1 antigen in urine, suggesting no recent or current infection. Infection due to Legionella cannot be ruled out since other serogroups and species may cause disease, antigen may not be present in urine in early infection, and the level of antigen present in the urine may be below the detection limit of the test. Performed By: #### LEGAG #### [place] [address] Observed: 03/26/2018 Status: F Source: [facility] STREP PNEUMONIAE AG 4:00 PM HEALTH SYSTEM REPOSITORY Test performed at [facility] Positive for pneumococcal pneumonia Performed By: #### SPNAG #### [place] [address] HISTOPLASMA AB - CF Collected: 03/26/2018 Status: F Source: [facility] 4:00 PM HEALTH SYSTEM REPOSITORY TYPE CODE TESTS RESULT OUT OF REFERENCE UNITS RANGE LAB HISXF(LOIN C) Histoplasma Ab - CF SEE BELOW Result Comment: Histo Yeast AB-CF <1:8 DLT8 Dilutions Reference Range: Negative <1:8 Histo Mycelial AB-CF <1:8 DLT8 Dilutions Reference Range: Negative <1:8 Performing Laboratory: [facility] [address] [place] [address] Performed By: #### HISXF #### [place] [address] HISTOPLASMA AG Collected: 03/26/2018 Status: F Source: [facility] 4:00 PM HEALTH SYSTEM REPOSITORY TYPE CODE TESTS RESULT OUT OF REFERENCE UNITS RANGE LAB BIJAL(FLORIAN C) Histoplasma Ag SEE BELOW Result Comment: Histoplasma Ag Ur None detected. ND ng/mL (NOTE) Reference interval: None Detected Results reported as ng/mL in 0.4 - 19.0 ng/mL range. Results above the limit of detection but below 0.4 ng/mL are reported as 'Positive, Below the Limit of Quantification'. Results above 19.0 ng/mL are reported as 'Positive, Above the Limit of Quantification'. This test was developed and its performance characteristics determined by [employer]. It has not been cleared or approved by the FDA; however, FDA clearance or approval is not currently required for clinical use. The results are not intended to be used as the sole means for clinical diagnosis or patient management decisions. Test performed by [facility], [address] [place] [address] [place] [address] Performing Laboratory: Performed By: #### BIJAL #### [place] [address] CONSULT Observed: 03/26/2018 Status: COMPLETED Source: [place] 3:06 PM [facility] REPOSITORY HNO ID: [id number] Author: Keli Laureano Service: Infectious Disease Author Type: Physician Type: Consults Filed: 03/26/2018 3:33 PM Note Text: March 26, 2018 3:07 PM Infectious Disease Consult dictated #[id number]. Imp:Loculated left pleural effusion, parapneumonic vs related to LLL PE. ? malignancy? Hx testicular Ca Rx resection and radiation DM Rec:Change zosyn to ceftriaxone and doxy Send pleural fluid for fluid studies and cultures and cytology Respiratory pcr panel Urine antigens Sputum culture Keli Laurenao MD NURSING PROG Observed: 03/26/2018 Status: COMPLETED Source: [place] 2:00 PM [facility] OTHER CAMPUS REPOSITORY HNO ID: [id number] Author: Cordelia CoreasRn) INEZ Luz Service: ADT-MICU Author Type: Registered Nurse Type: Nursing Progress Note Filed: 03/26/2018 2:16 PM Note Text: D/w Dr Castillo via phone, 2 hrs Bedrest PLACEMENT IVC FILTER Observed: 03/26/2018 Status: F Source: [facility] 1:02 PM HEALTH SYSTEM REPOSITORY Performed at [facility] APPROVED BY: BARBARA CASTILLO MD EXAM TITLE: ULTRASOUND-GUIDED ACCESS OF LEFT COMMON FEMORAL VEIN, VENOGRAM, PLACEMENT OF EDWARD IVC FILTER DATE:03/26/2018 11:16 CLINICAL INDICATION/HISTORY: Patient with recent PE, bleeding on anticoagulation, unable to anticoagulate. TECHNIQUE: All elements of maximal barrier technique including cap and mask, sterile gown, sterile gloves, a large sterile drape, hand hygiene and appropriate prep agent for cutaneous antisepsis were ut ilized and maintained during the procedure. Risks benefits and alternatives were splinted the patient prior to procedure and he agreed. Risks included but were not limited to bleeding, infection, hematoma, inability to remove, caval thrombosis, perforation, migration, fracture, contrast nephropathy. Procedure performed by Barbara Castillo MD. Ultrasound guidance was utilized to access the left common femoral vein. Under ultrasound guidance a micropuncture needle was passed into the vein and a micropuncture wire was passed and then micropunc ture sheath and dilator passed over this. A 5 Uzbek sheath is placed. A venogram was performed. The Bucks IVC filter was placed just below the bilateral renal veins and deployed successfully. Repe at venogram confirm placement. The completion the case catheters wires removed and pressure is held. FINDINGS: Successful placement of Bucks IVC filter. Patent left common femoral vein IMPRESSION: Successful placement of Bucks IVC filter. Contrast and radiation not recorded. BRIEF OP NOT Observed: 03/26/2018 Status: COMPLETED Source: [place] 12:46 PM CLINIC OTHER CAMPUS REPOSITORY HNO ID: [id number] Author: Barbara Castillo Service: Vascular Surgery Author Type: Physician Type: Brief Op Note Filed: 03/26/2018 12:46 PM Note Text: VASCULAR SURGERY POST PROCEDURE NOTE DATE: 03/26/18 NAME: Joel Matson LOG ID: [id number] Pre-Procedure Diagnosis: PE, unable to anticoagulate Post Procedure Diagnosis: Same. Ginning Operator: Dr. Barbara Castillo (Primary) Procedure: insertion of edward IVC filter Anesthesia: Local Findings: successful Estimated Blood Loss: Minimal (Less Than 25 mL). Specimen: None. Complications: None. . Full report with procedural details to follow and will become available under Imaging Reports. Please contact for any questions or concerns. Barbara Castillo MD PROGRESS Observed: 03/26/2018 Status: COMPLETED Source: [place] 12:29 PM CLINIC OTHER CAMPUS REPOSITORY HNO ID: [id number] Author: Agustín Melinda Service: Critical Care Author Type: Physician Type: Progress Notes Filed: 03/26/2018 1:37 PM Note Text: Attestation signed by David Cerrato at 03/26/2018 6:00 PM [facility] STAFF PHYSICIAN NOTE OF PERSONAL INVOLVEMENT IN CARE I have reviewed the progress note obtained and documented by the resident and I personally participated in the quintana components. I have discussed the case and management of the patient's care. The following comments revise or confirm relevant quintana components of the note. 52/M with PMHx of DM and ANDREW (on CPAP) developed cough with sputum and left chest pain about 2-3 weeks ago. He was treated with shots (2 in each hip) in his PCPs office and then antibiotics (small blue pills twice a day for about 10 days). His symptoms got better but over the past week has developed worsening dyspnea and left chest pain. He had a near syncopal event today with incontinence (bladder and bowel) on going to the bathroom so presented to the ER. Investigation in the ER showed severe anemia (Hb 4.5, normocytic), CT chest showed small to mod left loculated pleural effusion, left basilar atelectasis vs consolidation and LLL PE. He has been having some nausea and vomiting over the past few days without hematemesis or coffee ground emesis. Stool has been dark brown without obvious blood. No fever or chills. ? Was also found to be in Afib and was started on amiodarone. Currently in NSR. Amiodarone was stopped 03/25/18. EGD on 03/25/18 showed 3 small non bleeding gastric ulcers, biopsied. On PPI. Had dark bloody movements yesterday afternoon, one so far today. Breathing improved but still with pleuritic pain and breathing heavy. 102/58 77/min 96% RA Sitting in chair, pleasant Decreased breath sounds in bases Regular rhythm, NSR s1s2 normal abd soft, nt nd No c/c/e CXR: persistent moderate left pleural effusion Hb 7.5 (7.3 yesterday pm) IMPRESSION: ?Severe anemia secondary to GIB ?EGD showed 3 non bleeding small gastric ulcers, biopsied ?Acute hypoxic respiratory failure: improved ?Left loculated small to moderate pleural effusion with adjacent atelectasis/consolidation with pleuritic chest pain and dyspnea ?Recently treated for pneumonia x 10 days ?LLL PE ?Paroxysmal Afib: in NSR ?ANDREW on CPAP ?DM ?obesity? PLAN: ?Blood transfusion, keep Hb>7 ?GI input appreciated, colonoscopy tomorrow ?D/W Vascular surgery, Dr Castillo. Will need IVC filter due to ongoing GIB and other complications/issues which will need intervention ?D/w patient, agrees ?Anticoagulation depending on work up and when ok with GI ?CPAP QHS ?Thoracic surgery consult for chest tube/pigtail placement ?ID consult for opinion on antibiotics for treated/partially treated complicated effusion ?Start zosyn ?LE DVT: negative for clot ?SCDs ?ICU monitoring Patient/Family Updated: yes. Agreeable with plan. SIGNATURE: David Cerrato MD [facility] P[facility]:[phone] DATE of SERVICE: March 26, 2018 TIME of SERVICE: 10:03 AM MICU - PROGRESS NOTE SERVICE DATE: 03/26/2018 SERVICE TIME: 12:29 PM Admission Date: 03/24/2018 AGE: [age] year old LOS: 2 days Subjective REASON FOR ICU ADMISSION: GI Bleeding and Pneumonia 2 small bowel movements with blood overnight. EGD done yesterday showed no source of bleeding. Plan for colonoscopy Tuesday. Patient admits to some SOB. Admits to left chest pain with breathing. Cough is productive. Denies abdominal pain, nausea or vomiting. Tolerating diet. Objective PROBLEMS: ACTIVE PROBLEM LIST Anemia Atrial Fibrillation With Rvr (Hcc) Pulmonary Embolism (Hcc) Nicotine use disorder, F17.2 Obesity, Class III, BMI >= 40 Malnutrition of Moderate Degree (Hcc) GI Bleed Diabetes (Hcc) Obstructive Sleep Apnea PAST MEDICAL HISTORY Diagnosis Date - Testicular cancer (HCC) 2002 PAST SURGICAL HISTORY Procedure Laterality Date - ORCHIECTOMY SIMPLE Bilateral 2003 testicular cancer Social History Marital status: Spouse name: Years of education: Number of children: Social History Main Topics Smokeless tobacco: Current User Types: Snuff Comment: 1 can per day Alcohol use: Yes Comment: weekends Drug use: No VITAL SIGNS (last 24hrs min/max): Temp Av.5 ?C (97.7 ?F) Min: 36 ?C (96.8 ?F) Max: 37 ?C (98.6 ?F) Pulse Av.6 Min: 69 Max: 85 No Data Recorded Cuff BP Min: 93/58 Max: 122/72 Pain Score: 0/10 Vital signs reviewed. BP 119/78 Pulse 78 Temp (Src) 97.9 (Axillary) Resp 20 Ht 5' 8 (1.73m) Wt 273 lb 5.9 oz (124.0kg) SpO2 100% BMI 41.58 kg/(m2). Temp (24hrs), Av.5 ?C (97.7 ?F), Min:36 ?C (96.8 ?F), Max:37 ?C (98.6 ?F) NET FLUID BALANCE Intake/Output Summary (Last 24 hours) at 03/26/18 1229 Last data filed at 03/26/18 1139 Gross per 24 hour Intake 5061 ml Output 1350 ml Net 3711 ml MEDICATIONS Current Facility-Administered Medications: [MAR Hold due to Transfer] bisacodyl EC 10 mg tab(s) (DULCOLAX) 10 mg ORAL ONCE [MAR Hold due to Transfer] polyethylene glycol 3350 255 g oral powder (MIRALAX, GLYCOLAX) 255 g ORAL ONCE [MAR Hold due to Transfer] piperacillin-tazobactam 3.375 g in dextrose (iso-osmotic) 50 mL (ZOSYN) 3.375 g INTRAVENOUS q 6 H [MAR Hold due to Transfer] pantoprazole DR 40 mg tab(s) (PROTONIX) 40 mg ORAL DAILY (6 AM) [MAR Hold due to Transfer] potassium chloride 80-120 mEq oral liquid 80-120 mEq ORAL/FEEDING TUBE PRN [MAR Hold due to Transfer] potassium chloride iv piggyback 20 mEq in sterile water 100 mL 20 mEq INTRAVENOUS PRN [MAR Hold due to Transfer] magnesium sulfate in water 2 g in sterile water 50 ml 2 g INTRAVENOUS PRN [MAR Hold due to Transfer] sodium phosphate 45 mmol in NaCl 0.9% 250 mL 45 mmol INTRAVENOUS PRN [MAR Hold due to Transfer] calcium gluconate 4 g in NaCl 0.9% 250 mL 4 g INTRAVENOUS PRN [MAR Hold due to Transfer] NaCl 0.9% iv infusion 100 mL/hr INTRAVENOUS CONTINUOUS [JAN Hold due to Transfer] dextrose 40 % 15 g 15 g ORAL PRN Or [JAN Hold due to Transfer] glucagon 1 mg injection (GLUCAGEN) 1 mg INTRAMUSCULAR PRN Or [JAN Hold due to Transfer] dextrose 50% in water 25 mL syringe 12.5 g INTRAVENOUS PRN [MAR Hold due to Transfer] insulin regular human injection (short acting) (NovoLIN R,HumuLIN R) SUBCUTANEOUS q 6 H [MAR Hold due to Transfer] ondansetron (PF) 4 mg injection (ZOFRAN) 4 mg INTRAVENOUS q 6 H PRN [MAR Hold due to Transfer] iv contrast (radiology procedure) INTRAVENOUS DIRECTED PRN [JAN Hold due to Transfer] prochlorperazine 5 mg injection (COMPAZINE) 5 mg INTRAVENOUS q 6 H PRN Lines, Drains, and Airways Line Peripheral 03/24/18 Admission to Hospital Right Antecubital 20 Gauge 2 days PHYSICAL EXAM PERFORMED: General: Awake alert. Sitting in chair eating breakfast Cardiovascular: RRR, no murmur Respiratory: Diminished breath sounds at bases. Abdomen: Soft, Nontender and Positive bowel sounds Extremities: No pitting edema Neurologic: Awake, oriented, Alert, Follows commands and Moving all extremities Respiratory/Nursing Documentation: O2 Therapy: Room Air (03/26/18 1139) HEMODYNAMIC DATA: Reviewed NUTRITION: Enteral Feeds: Yes Clear liquids DATA: Diagnostic tests reviewed for today's visit, films/specimens were personally reviewed by me: Most recent labs and imaging results. LABS: Recent Labs 03/26/18 0200 03/24/18 1600 05/18/18 1400 WBC 6.14 < > -- -- RBC 2.55* < > -- -- HB 7.5* < > -- -- HCT 23.0* < > -- -- MCV 90.2 < > -- -- PLT 107* < > -- -- GLUC 189* < > -- -- BUN 13 < > -- -- CREAT 0.53* < > -- -- NA 139 < > -- -- K 3.2* < > -- -- CHLOR 108* < > -- -- CO2 27 < > -- -- TPROT -- -- -- 4.8* ALB -- -- -- 1.7* CA 7.0* < > -- -- ALKPHOS -- -- -- 66 TBILI -- -- -- 1.7* AST -- -- -- 19 ALT -- -- -- 18 APTT -- -- 19.1* -- < > = values in this interval not displayed. ABG: Invalid input(s): [id number] Assessment/Plan GI bleed -monitor HgB, transfuse <7 -EGD yesterday did not reveal bleeding -GI following -Colonoscopy tomorrow -Protonix daily -IV fluids Acute respiratory failure -O2 NC wean as tolerated. Pneumonia with loculated pleural effusion -Chest surgery consult for chest tube -continue Zosyn Paroxsymal A.fib -rate improved with amiodarone H/O PE/DVT -anticoagulation contraindicated due to GI bleed -Vascular surgery consult to IVF filter SIGNATURE: Agustín Lawrence DO PATIENT NAME: Joel Matson DATE: March 26, 2018 TIME: 12:29 PM GLUCOSE METER Collected: 03/26/2018 Status: F Source: [facility] 11:38 AM HEALTH SYSTEM REPOSITORY TYPE CODE TESTS RESULT OUT OF REFERENCE UNITS RANGE LAB GLUBL(LOINC 70-99 mg/dL ) High Glucose Meter 240 Result Comment: RN NOTIFIED Performed By: #### GLMET #### [facility] [address] [id number] PROGRESS Observed: 03/26/2018 Status: COMPLETED Source: [place] 11:10 AM CLINIC OTHER CAMPUS REPOSITORY HNO ID: [id number] Author: Barbara Castillo Service: Vascular Surgery Author Type: Physician Type: Progress Notes Filed: 03/26/2018 11:12 AM Note Text: Pt seen and examined. D/W Dr Tellez. Pt with no source from EGD. Likely source from bowel and pt unlikely to be anticoagulated. In addition, pt will need treatment of his L plearual effusion. Pt with current PE, unable to be anticoagulated secondary to bleeding risk. Will place IVC filter. Pt agreeable to procedure after R/B/A explained to him. Barbara Castillo MD PROGRESS Observed: 03/26/2018 Status: COMPLETED Source: [place] 11:08 AM [facility] OTHER CAMPUS REPOSITORY HNO ID: [id number] Author: Jose Woods Service: Vascular Surgery Author Type: Resident Type: Progress Notes Filed: 03/26/2018 11:10 AM Note Text: Attestation signed by Barbara Castillo at 03/26/2018 11:22 AM I saw and evaluated the patient. Discussed with the resident and agree with resident's findings and plan as documented in the resident's note. I spent 15 minutes in the visit, with more than 50% of the total [id number] time of the visit in counseling / coordination of care. Barbara Castillo MD VASCULAR SURGERY PROGRESS NOTE SERVICE DATE: 03/26/2018 Subjective SUBJECTIVE: Maroon BM overnight. Denies N/V/CP/SOB Diet: DIET LIQUID DIET NPO Objective OBJECTIVE: Vitals: Temp (24hrs), Av.5 ?C (97.7 ?F), Min:36 ?C (96.8 ?F), Max:37 ?C (98.6 ?F) BP 115/59 Pulse 84 Temp 36 ?C (96.8 ?F) Resp 17 Ht 172.7 cm (5' 8) Wt 124 kg (273 lb 5.9 oz) SpO2 99% BMI 41.57 kg/m? O2 Therapy: Room Air IANDO: Date 03/25/18 07 - 03/26/18 0603/26/18699 - 03/27/18 0659 Shift 5967-3515 9113-2772 6493-1009 24 Hour Total 6398-6530 0617-6594 7169-2542 24 Hour Total I N T A K E PO 961 944 7978 1080 1080 PO 322 312 9559 1080 1080 IV 610.8 788 705 8456.8 815 815 NS 0.9% 550 452 843 0986 415 415 Potassium IVPB 400 400 Amiodarone 60.8 60.8 Blood Products 350 350 PRBC Intake (mL) 350 350 Shift Total 1420.8 8365 721 5686.8 1895 1895 O U T P U T Urine 500 360 817 3215 0 0 Void (ml) 500 632 864 1251 0 0 Urine Incontinence/Not Saved 1 x 1 x 2 x 2 x # of BMs Stool Incontinence 2 x 2 x Number of BMs 0 x 0 x 0 x 0 x 0 x Shift Total 500 091 248 8639 0 0 Weight (kg) 124.4 124.4 124 124 124 124 124 124 MEDICATIONS Current Facility-Administered Medications: bisacodyl EC 10 mg tab(s) (DULCOLAX) 10 mg ORAL ONCE piperacillin-tazobactam 3.375 g in dextrose (iso-osmotic) 50 mL (ZOSYN) 3.375 g INTRAVENOUS q [address] 40 mg tab(s) (PROTONIX) 40 mg ORAL DAILY (6 AM) potassium chloride 80-120 mEq oral liquid 80-120 mEq ORAL/FEEDING TUBE PRN potassium chloride iv piggyback 20 mEq in sterile water 100 mL 20 mEq INTRAVENOUS PRN magnesium sulfate in water 2 g in sterile water 50 ml 2 g INTRAVENOUS PRN sodium phosphate 45 mmol in NaCl 0.9% 250 mL 45 mmol INTRAVENOUS PRN calcium gluconate 4 g in NaCl 0.9% 250 mL 4 g INTRAVENOUS PRN NaCl 0.9% iv infusion 100 mL/hr INTRAVENOUS CONTINUOUS dextrose 40 % 15 g 15 g ORAL PRN Or glucagon 1 mg injection (GLUCAGEN) 1 mg INTRAMUSCULAR PRN Or dextrose 50% in water 25 mL syringe 12.5 g INTRAVENOUS PRN insulin regular human injection (short acting) (NovoLIN R,HumuLIN R) SUBCUTANEOUS q 6 H ondansetron (PF) 4 mg injection (ZOFRAN) 4 mg INTRAVENOUS q 6 H PRN iv contrast (radiology procedure) INTRAVENOUS DIRECTED PRN prochlorperazine 5 mg injection (COMPAZINE) 5 mg INTRAVENOUS q 6 H PRN Labs: Recent Labs 03/26/18 0200 03/25/18200903/25/18 0210 03/24/18 1400 03/24/18 1345 NA 139 -- -- 139 -- -- 137 K 3.2* -- -- 3.5 -- -- 3.8 CHLOR 108* -- -- 108* -- -- 105 CO2 27 -- -- 26 -- -- 27 BUN 13 -- -- 18 -- -- 15 CREAT 0.53* -- -- 0.53* -- -- 0.52* GLUC 189* -- -- 207* -- -- 310* ANION 7* -- -- 9 -- -- 9 CA 7.0* -- -- 7.1* -- -- 7.3* ALB -- -- -- -- -- 1.7* -- AST -- -- -- -- -- 19 -- ALT -- -- -- -- -- 18 -- ALKPHOS -- -- -- -- -- 66 -- TBILI -- -- -- -- -- 1.7* -- WBC 6.14 -- -- 9.23* -- -- 8.91 HB 7.5* 7.3* < > 7.2* < > -- 4.7* HCT 23.0* -- -- 21.3* -- -- 15.3* PLT 107* -- -- 116* -- -- 146 LACT -- -- -- -- -- -- 1.1 < > = values in this interval not displayed. Exam: GENERAL: Alert, no distress, cooperative LUNGS: Unlabored breathing on O2 Therapy: RA CARDIAC: rate and rhythm as above, EXTREMITIES: FLORES, no edema ? ASSESSMENT AND PLAN: Active Hospital Problems Diagnosis Date Noted - Obstructive sleep apnea 03/26/2018 Chronic - Diabetes (HCC) 03/26/2018 Chronic - Nicotine use disorder, F17.2 03/25/2018 - Obesity, Class III, BMI >= 40 03/25/2018 - Malnutrition of moderate degree ([facility]) 03/25/2018 - Anemia 03/24/2018 - Atrial fibrillation with RVR ([facility]) 03/24/2018 - Pulmonary embolism (HCC) 03/24/2018 - GI bleed 03/24/2018 Overview Note: Added automatically from request for surgery [id number] 52 year old male with PE and GIB - continued need for IVCF. Plan per MICU team and patient are to proceed with filter. Will place today. Assessment and plan discussed with attending: Anna SIGNATURE: Jose Woods MD PATIENT NAME: Joel Matson DATE: March 26, 2018 TIME: 11:08 AM Pager: [phone] CONSULT Observed: 03/26/2018 Status: COMPLETED Source: [place] 10:59 AM [facility] OTHER CAMPUS REPOSITORY O ID: [id number] Author: Alejandro Montelongo Service: Thoracic Surgery Author Type: Physician Type: Consults Filed: 03/27/2018 7:10 PM Note Text: CONSULT: THORACIC SERVICE SERVICE DATE: 03/26/2018 SERVICE TIME: 1130 REASON FOR CONSULT: Pleural effusion REQUESTING PHYSICIAN: Cali PRIMARY CARE PHYSICIAN: No primary care provider on file. Subjective Mr. Matson is a 52 year old male who presents for cough and left chest pain and dyspnea. He has had these symptoms for weeks, and was getting treatment from a PCP but his symptoms were worsening. He presented then with findings also of severe anemia and noted he had been having coffee ground emesis. CT findings at that time were positive for a LLL PE. He was admitted with the diagnoses of PNA, PE, GIB, treated on zosyn. EGD revealed no active source. He is currently being prepped for a colonoscopy on Tuesday. In the mean time he has been having maroon stools, with a stable Hgb post transfusion on admission. FUNCTIONAL STATUS: Independent No past medical history on file. No past surgical history on file. No family history on file. Social History Substance Use Topics - Smoking status: Not on file - Smokeless tobacco: Current User Types: Snuff Comment: 1 can per day - Alcohol use Yes Comment: weekends Prescriptions Prior to Admission: COMPOUNDED PRESCRIPTION testosterone cream for testic CA Disp: Rfl: 0 COMPOUNDED PRESCRIPTION glucophage dose not known Disp: Rfl: 0 Exenatide 10 mcg/0.04 mL SUBCUTANEOUS PnIj Take one(1) tablet two(2) times daily. Disp: Rfl: 0 COMPOUNDED PRESCRIPTION diabetic med, name/dose unknown Disp: Rfl: 0 COMPOUNDED PRESCRIPTION lexapro, dose unknown Disp: Rfl: 0 Current hospital medications: bisacodyl EC 10 mg tab(s) (DULCOLAX) 10 mg ORAL ONCE polyethylene glycol 3350 255 g oral powder (MIRALAX, GLYCOLAX) 255 g ORAL ONCE piperacillin-tazobactam 3.375 g in dextrose (iso-osmotic) 50 mL (ZOSYN) 3.375 g INTRAVENOUS q [address] 40 mg tab(s) (PROTONIX) 40 mg ORAL DAILY (6 AM) potassium chloride 80-120 mEq oral liquid 80-120 mEq ORAL/FEEDING TUBE PRN potassium chloride iv piggyback 20 mEq in sterile water 100 mL 20 mEq INTRAVENOUS PRN magnesium sulfate in water 2 g in sterile water 50 ml 2 g INTRAVENOUS PRN sodium phosphate 45 mmol in NaCl 0.9% 250 mL 45 mmol INTRAVENOUS PRN calcium gluconate 4 g in NaCl 0.9% 250 mL 4 g INTRAVENOUS PRN NaCl 0.9% iv infusion 100 mL/hr INTRAVENOUS CONTINUOUS dextrose 40 % 15 g 15 g ORAL PRN glucagon 1 mg injection (GLUCAGEN) 1 mg INTRAMUSCULAR PRN dextrose 50% in water 25 mL syringe 12.5 g INTRAVENOUS PRN insulin regular human injection (short acting) (NovoLIN R,HumuLIN R) SUBCUTANEOUS q 6 H ondansetron (PF) 4 mg injection (ZOFRAN) 4 mg INTRAVENOUS q 6 H PRN iv contrast (radiology procedure) INTRAVENOUS DIRECTED PRN prochlorperazine 5 mg injection (COMPAZINE) 5 mg INTRAVENOUS q 6 H PRN Allergies As of Date: 03/24/2018 (No Known Allergies) Fully Assessed 03/24/2018 COMPLETE REVIEW OF SYSTEMS: GENERAL: No weight loss, malaise or fevers RESPIRATORY: see HPI CARDIOVASCULAR: left chest pain GI: See HPI MUSCULOSKELETAL: Negative for joint pain or swelling, back pain or muscle pain Objective PHYSICAL EXAM: Physical Exam Performed: GENERAL: Alert, no distress, cooperative LUNGS: diminished LL CARDIAC: Normal S1 and S2; no rubs, murmurs, or gallops ABDOMEN: Abdomen soft, non-tender, BS normal, No masses or organomegaly BP 115/59 Pulse 84 Temp (Src) 96.8 (Axillary) Resp 17 Ht 5' 8 (1.73m) Wt 273 lb 5.9 oz (124.0kg) SpO2 99% BMI 41.58 kg/(m2). DATA: Diagnostic tests reviewed for today's visit: Most recent labs and imaging results. Impression/Recommendations 52 YO male with loculated pleural effusion - would recommend bedside large bore chest tube. At the request of the MICU service this will be performed after his colonoscopy. - INR in AM D/w Dr. Montelongo SIGNATURE: Jose Woods MD PATIENT NAME: Joel Matson DATE: March 26, 2018 TIME: 10:59 AM PAGER: [phone] Films reviewed, case d/w resident and recommendation made for chest tube insertion on left, but pulmonary doesn't want it done until after scope on Tuesday! Will see patient tomorrow. Patient seen and films previouslr reviewed and chest tube now in place. Will follow. CONSULT PROG Observed: 03/26/2018 Status: COMPLETED Source: [place] 8:31 AM CLINIC OTHER CAMPUS REPOSITORY HNO ID: [id number] Author: Monica Saavedra) Colten Service: Gastroenterology Author Type: Nurse Specialist Type: Consult Progress Note Filed: 03/26/2018 8:36 AM Note Text: GI CONSULT PROGRESS NOTE SERVICE DATE: 03/26/2018 SERVICE TIME: 8:31 AM CONSULTING SERVICE: Gastroenterology Subjective INTERVAL HISTORY: Feeling better. Had 2 maroon stools since EGD. Had one unit of PRBCs yesterday. Hgb 7.5 today. MEDICATIONS: Current hospital medications: pantoprazole DR 40 mg tab(s) (PROTONIX) 40 mg ORAL DAILY (6 AM) potassium chloride 80-120 mEq oral liquid 80-120 mEq ORAL/FEEDING TUBE PRN potassium chloride iv piggyback 20 mEq in sterile water 100 mL 20 mEq INTRAVENOUS PRN magnesium sulfate in water 2 g in sterile water 50 ml 2 g INTRAVENOUS PRN sodium phosphate 45 mmol in NaCl 0.9% 250 mL 45 mmol INTRAVENOUS PRN calcium gluconate 4 g in NaCl 0.9% 250 mL 4 g INTRAVENOUS PRN NaCl 0.9% iv infusion 100 mL/hr INTRAVENOUS CONTINUOUS dextrose 40 % 15 g 15 g ORAL PRN glucagon 1 mg injection (GLUCAGEN) 1 mg INTRAMUSCULAR PRN dextrose 50% in water 25 mL syringe 12.5 g INTRAVENOUS PRN insulin regular human injection (short acting) (NovoLIN R,HumuLIN R) SUBCUTANEOUS q 6 H ondansetron (PF) 4 mg injection (ZOFRAN) 4 mg INTRAVENOUS q 6 H PRN iv contrast (radiology procedure) INTRAVENOUS DIRECTED PRN prochlorperazine 5 mg injection (COMPAZINE) 5 mg INTRAVENOUS q 6 H PRN Objective PHYSICAL EXAM: VITALS:BP (!) 107/44 Pulse 79 Temp 36.2 ?C (97.2 ?F) Resp 18 Ht 172.7 cm (5' 8) Wt 124 kg (273 lb 5.9 oz) SpO2 97% BMI 41.57 kg/m? ABDOMEN: Soft, nondistended, nontender, bowel sounds present. No guarding, rebound or rigidity. GENERAL: Alert and oriented. No distress DATA: Diagnostic tests reviewed for today's visit: Most recent labs and imaging results. CBC, Coags, BMP, Mg, Phos Recent Labs 03/26/18 0200 03/25/18 2010 03/25/18 1355 03/25/18 0210 03/24/18 1600 03/24/18 1345 WBC 6.14 -- -- -- 9.23* -- -- 8.91 HB 7.5* 7.3* 8.1* < > 7.2* < > -- 4.7* HCT 23.0* -- -- -- 21.3* -- -- 15.3* PLT 107* -- -- -- 116* -- -- 146 APTT -- -- -- -- -- -- 19.1* -- NA 139 -- -- -- 139 -- -- 137 K 3.2* -- -- -- 3.5 -- -- 3.8 CHLOR 108* -- -- -- 108* -- -- 105 CO2 27 -- -- -- 26 -- -- 27 BUN 13 -- -- -- 18 -- -- 15 CREAT 0.53* -- -- -- 0.53* -- -- 0.52* GLUC 189* -- -- -- 207* -- -- 310* CA 7.0* -- -- -- 7.1* -- -- 7.3* < > = values in this interval not displayed. CSF AND Dilantin Liver Function, Amylase, AND Lipase Recent Labs 03/24/18 1400 03/24/18 1345 TPROT 4.8* -- ALB 1.7* -- ALT 18 -- AST 19 -- ALKPHOS 66 -- TBILI 1.7* -- LACT -- 1.1 EGD - small gastric ulcers. No bleeding Impression/Recommendations Anemia - acute normocytic. EGD showed no bleeding -Monitor Hgb/Hct - transfuse as needed - Monitor BMs for bleeding -- Plan colonoscopy tomorrow with Dr. Kang ? Atrial fibrillation with RVR - amiodarone drip stopped - managed per primary team ? Pulmonary embolism- acute. Unable to anticoagulate due to GI bleeding - Possible IVC filter - Vascular surgery following ? Can continue clear liquids today. Will give 2 dulcolax tabs at 3 pm then start colon prep at 4 pm ? GI will continue to follow SIGNATURE: Monica Abel APRN.INFORMATICA MDM ARCHITECT PATIENT NAME: Joel Matson DATE: March 26, 2018 TIME: 8:31 AM PAGER/CONTACT #: [phone] GLUCOSE METER Collected: 03/26/2018 Status: F Source: [facility] 5:13 AM HEALTH SYSTEM REPOSITORY TYPE CODE TESTS RESULT OUT OF REFERENCE UNITS RANGE LAB GLUBL(LOINC 70-99 mg/dL ) High Glucose Meter 176 Performed By: #### GLMET #### [place] [id number] HEMOGRAM Collected: 03/26/2018 Status: F Source: [facility] 2:00 AM HEALTH SYSTEM REPOSITORY TYPE CODE TESTS RESULT OUT OF REFERENCE UNITS RANGE LAB WBC(LOINC) 4.23-9.07 thou/cmm WBC 6.14 LAB RBC(LOINC) 4.63-6.08 mil/cmm Low RBC 2.55 LAB HGB(LOINC) 13.7-17.5 g/dL Low Hgb 7.5 LAB HCT(LOINC) 40.1-51.0 % Low Hct 23.0 LAB MCV(LOINC) 83.2-95.6 fl MCV 90.2 LAB MCH(LOINC) 25.7-32.2 pg MCH 29.4 LAB MCHC(LOINC 32.3-36.5 % ) MCHC 32.6 LAB RDW(LOINC) 11.6-14.4 % RDW High 18.4 LAB RDWSD(LOIN 36.1-45.8 fl C) RDW High SD 48.0 LAB PLT(LOINC) 141-365 thou/cmm Low Platelet 107 LAB MPV(LOINC) 8.7-12.0 fl MPV 9.2 LAB NRBCR(LOIN 0.0-0.2 % C) High Nucleated RBC % 1.6 LAB NRBCA(LOIN 0.00-0.01 thou/cmm C) High Nucleated RBC 0.10 Absolute Performed By: #### CBC1 #### [place] [id number] BASIC PANEL Collected: 03/26/2018 Status: F Source: [facility] 2:00 AM [facility] REPOSITORY TYPE CODE TESTS RESULT OUT OF REFERENCE UNITS RANGE LAB NA(LOINC) 136-145 mEq/L Sodium Blood 139 LAB K(LOINC) 3.5-5.1 mEq/L Low Potassium Blood 3.2 LAB CL(LOINC) 98-107 mEq/L Chloride High Blood 108 LAB CO2(LOINC) 21-32 mEq/L CO2 Blood 27 LAB GLU(LOINC) 70-99 mg/dL Glucose High Blood 189 LAB BUN(LOINC) 7-18 mg/dL BUN Blood 13 LAB CREA(LOINC 0.67-1.17 mg/dL ) Low Creatinine Blood 0.53 LAB CA(LOINC) 8.5-10.1 mg/dL Low Calcium Blood 7.0 LAB ANGAP(LOIN 8-16 C) Low Anion Gap 7 Performed By: #### P8 #### [facility] [address] [place] [address] MDRD GFR Collected: 03/26/2018 Status: F Source: [facility] 2:00 AM [facility] REPOSITORY TYPE CODE TESTS RESULT OUT OF RANGE REFERENCE UNITS LAB GFRFN(LOINC >60mL/min/1.73m ) 2 eGFR >60 Result Comment: If the patient is , multiply the result by 1.210. Performed By: #### GFR #### [facility] [address] [place], [place] [address] CONSULT Observed: 03/26/2018 Status: COMPLETED Source: [place] 12:00 AM CLINIC OTHER CAMPUS REPOSITORY HNO ID: [id number] Author: Keli Laureano Service: Infectious Disease Author Type: Physician Type: Consults Filed: 03/27/2018 9:35 AM Note Text: [facility] - Consultation PATIENT NAME: JOEL MATSON CSN: [id number] DATE OF : 1965 SEX/AGE: M/52 PATIENT TYPE: I HOSP SVC: PULM LOCATION: [id number] DATE OF SERVICE: 03/26/2018 INFECTIOUS DISEASE CONSULT TIME OF CONSULT: 3:17 p.m. HISTORY OF PRESENT ILLNESS: The patient is a 52-year-old man who was transferred from [facility] Emergency Department for severe anemia, severe dyspnea, loculated left pleural effusion with left lower lobe infiltrate and left lower lobe pulmonary embolism. He was noted to be in atrial fibrillation. He is suspected to have GI bleeding with maroon colored stools. He was started on intravenous Zosyn in [place] and this was continued after transfer here. Infectious Disease consult was requested regarding possible complicated or loculated left pleural effusion. He was admitted under the Pulmonary Critical Care Service to the ICU. Vascular Surgery was consulted and has placed an IVC filter this afternoon. Thoracic Surgery has been consulted and is planning to place a chest tube tomorrow. Gastroenterology has also been consulted, he had an upper GI endoscopy with biopsy showing 3 small gastric ulcers. He is apparently also to have colonoscopy tomorrow. He developed cough with shortness of breath and pleuritic left lower chest pain approximately 2 weeks previously. He was treated with antibiotics by his primary care physician including 4 injections on the 1st day and a week of oral antibiotics, the name of which he does not know. He had partial improvement, felt good enough that he attempted to return to work and work for a few days, but then got progressive increase in shortness of breath along with chest pain. His physician arranged some additional outpatient studies, but his dyspnea worsened to the point where his son had to drive him to the procedures and eventually he was advised to go to the emergency room in [place]. A CT angiogram of the chest revealed left lower lobe infiltrate or atelectasis with an apparent partially loculated small to moderate left pleural effusion and left lower lobe pulmonary embolism. He was transferred here and has been admitted to the intensive care unit for additional treatment. He did not recall significant fever, chills, or sweats. He did not have any vomiting or choking spells before onset of the respiratory symptoms. He has not had any recent dental work. He has some dental problems, but no recently abscessed teeth. He did not have any syncopal episodes. He has not traveled anywhere, nor been exposed to any ill people. His developed bronchitis after he became sick. He has not had headache or sore throat. No sinus congestion. He did have some nausea after he became ill, but he did not vomit before. No diarrhea. No dysuria, urgency, or frequency. No soft tissue infection or abscess. PAST HISTORY: Diabetes, testicular cancer treated between 2002 to 2004 with resection of both testicles and radiation for 6 months, he is on no ongoing therapy at this time. He has obesity, paroxysmal atrial fibrillation, obstructive sleep apnea. MEDICATIONS: Reviewed. HOME MEDICATIONS: Reviewed. ALLERGIES: No known allergies. SOCIAL HISTORY: Lives at home with and son. He uses snuff. Does not smoke. Alcohol use on weekends. No drug use. REVIEW OF SYSTEMS: Outlined above. PHYSICAL EXAMINATION: GENERAL: Obese man, lying flat in bed. VITAL SIGNS: Temperature is 36.6, blood pressure 132/81, pulse 77, respiration 19, O2 sat 98% to 99% on room air. HEENT: No skin rashes seen. Conjunctivae are unremarkable. Oral mucosa is moist with no thrush. He is missing a number of teeth and has a number of filled teeth with some decay and gingival disease, but no obvious abscesses. No submandibular or cervical adenopathy. LUNGS: Decreased breath sounds, left base lateral and posterior. Right lung clear. HEART: Regular, systolic murmur in the left sternal border. No gallop. ABDOMEN: Soft, he has some mild nonfocal tenderness, which he attributes to the IVC procedure. No flank tenderness. EXTREMITIES: No distal emboli or joint effusions. Possibly trace lower extremity edema. DIAGNOSTIC STUDIES: Chest x-ray done 2 days ago showed left-sided effusion with decreased aeration. CT abdomen and pelvis showed some contrast in the distal ileum, transverse and ascending colon, diverticulosis without inflammation, some nodular change in the liver concerning for cirrhosis, and the moderate left pleural effusion. Ultrasound of the legs showed no DVT. Repeat chest x-ray yesterday. Moderate left pleural effusion and basilar airspace disease, unchanged. He has had minimal microbiologic studies here and I am unable to tell if he has any micro studies at [place]. MRSA screen from the nose was negative. Cold agglutinins ordered and pending. CBC today shows white count of 6.1, hemoglobin 7.5, and platelets 107,000. Serum creatinine here is 0.53. IMPRESSION: 1. Loculated left pleural effusion. Possibly parapneumonic versus related to left lower lobe pulmonary embolism. Question associated malignancy. 2. Severe anemia, attributed to GI bleeding. 3. History of testicular cancer, treated with resection and radiation therapy. 4. Diabetes mellitus. 5. Atrial fibrillation. 6. Acute respiratory failure. PLAN: I would change from Zosyn to ceftriaxone plus doxycycline. He should have pleural fluid analysis, culture and cytology when he has the fluid drained tomorrow. We will order respiratory PCR panel and urine antigens. We will order a sputum culture, although I doubt we will obtain any. If he spikes a fever, I would do blood cultures, but if he is afebrile, I will not do them as he has had antibiotics for several days. Thank you for this consult. Keli Laureano MD Infectious Disease GEB:modl /[id number] GLUCOSE METER Collected: 03/25/2018 Status: F Source: [facility] 11:37 PM HEALTH SYSTEM REPOSITORY TYPE CODE TESTS RESULT OUT OF REFERENCE UNITS RANGE LAB GLUBL(LOINC 70-99 mg/dL ) High Glucose Meter 216 Performed By: #### GLMET #### [place] [id number] HGB Collected: 03/25/2018 Status: F Source: [facility] 8:10 PM HEALTH SYSTEM REPOSITORY TYPE CODE TESTS RESULT OUT OF RANGE REFERENCE UNITS LAB HGBI(LOINC) 13.7-17.5 g/dL Low Hgb 7.3 Performed By: #### HGBI #### [facility] [address] [place] [address] GLUCOSE METER Collected: 03/25/2018 Status: F Source: [facility] 5:58 PM HEALTH SYSTEM REPOSITORY TYPE CODE TESTS RESULT OUT OF REFERENCE UNITS RANGE LAB GLUBL(LOINC 70-99 mg/dL ) High Glucose Meter 236 Result Comment: RN NOTIFIED Performed By: #### GLMET #### [facility] [address] [place] [address] NURSING PROG Observed: 03/25/2018 Status: COMPLETED Source: [place] 2:24 PM [facility] OTHER [place] REPOSITORY HNO ID: [id number] Author: Cordelia (Rn) INEZ Luz Service: ADT-MICU Author Type: Registered Nurse Type: Nursing Progress Note Filed: 03/25/2018 2:25 PM Note Text: Dr Tellez paged Hg 8.1 HGB Collected: 03/25/2018 Status: F Source: [facility] 1:55 PM HEALTH SYSTEM REPOSITORY TYPE CODE TESTS RESULT OUT OF RANGE REFERENCE UNITS LAB HGBI(LOINC) 13.7-17.5 g/dL Low Hgb 8.1 Performed By: #### HGBI #### [place] [address] OPERATIVE NO Observed: 03/25/2018 Status: COMPLETED Source: [place] 1:13 PM [facility] OTHER [place] REPOSITORY HNO ID: [id number] Author: David Ruiz Service: Gastroenterology Author Type: Physician Type: Operative Report Filed: 03/25/2018 1:13 PM Note Text: BRIEF OPERATIVE / PROCEDURE NOTE LOG ID: [id number] SURGERY/PROCEDURE DATE: 03/25/2018 INCISION/PROCEDURE START TIME: 11:27 AM INCISION CLOSE/PROCEDURE END TIME: 11:31 AM SURGEON(S)/PROCEDURALIST(S) AND ZIPPER SETTER(S): Surgeon(s) and Role: * David Ruiz - Primary No Additional Staff PROCEDURE(S): EGD +/- Dilatation and Biopsy ANESTHESIA: Versed 3 mg, Fentanyl 50 mcg, Cetacaine spray FINDINGS: 3 small gastric ulcers - bx'd No blood or stigmata of bleeding seen ESTIMATED BLOOD LOSS: None SPECIMENS: as above COMPLICATIONS: None PRE-OP/PRE-PROCEDURE DIAGNOSIS: GI bleed POST-OP/POST-PROCEDURE DIAGNOSIS: as above Daily PPI Colonoscopy Tuesday Follow h/h Dict #: [id number] SIGNATURE: David Ruiz MD PATIENT NAME: Joel Matson DATE: March 25, 2018 TIME: 1:13 PM PAGER/CONTACT #: CHEST [phone] VIEW Observed: 03/25/2018 Status: F Source: [facility] 12:51 PM HEALTH SYSTEM REPOSITORY Performed at [facility] APPROVED BY: Dorian Ledesma MD EXAMINATION: CHEST RADIOGRAPH (SINGLE VIEW AP OR PA) Clinical History: Pneumonia, complicated M: [id number]_4 Comparison: 03/24/2019 RESULT: Lines, tubes, and devices: None. Multiple leads and wires overlie the chest. Lungs and pleura: Moderate left-sided pleural effusion and associated left basilar airspace disease, similar. Right lung remains grossly clear. No pneumothorax. Cardiomediastinal silhouette: Stable. Heart size is not grossly enlarged. Other: No acute bony abnormality. IMPRESSION: Moderate left pleural effusion and associated left basilar airspace disease, not significantly changed. NUTRITION Observed: 03/25/2018 Status: COMPLETED Source: [place] 12:15 PM CLINIC OTHER CAMPUS REPOSITORY HNO ID: [id number] Author: Elvis Sterling) DEMARCUS Booker Service: Nutrition Therapy Author Type: Registered Dietitian Type: Nutrition Filed: 03/25/2018 12:32 PM Note Text: NUTRITION THERAPY INITIAL ASSESSMENT SERVICE DATE: 03/25/2018 SERVICE TIME: 12:15 PM eval for MST 2 RECOMMENDED MALNUTRITION DIAGNOSIS: MODERATE PROTEIN-CALORIE MALNUTRITION In the context of Acute Illness or Injury based on: Unintentional Weight Loss: >2% over 1 week Insufficient Energy Intake: less than or equal to 50% for greater than or equal to 5 days NUTRITION CARE PLAN: Problem, Etiology and Signs/Symptoms: Suboptimal oral intake related to decreased appetite/not feeling well x 2 weeks 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 Will continue to follow and monitor tolerance and intake. Will order nutrition supplements as needed.-no interventions currently Coordination of Care:MICU rounding team Monitor and Evaluation: Goal: Meet >75% of estimated needs Monitor fluid/electrolyte balance Monitor labs, I/Os, vital signs, weight Discharge Nutrition Recommendations: To be determined Per HPI: 52/M with PMHx of DM and ANDREW (on CPAP) developed cough with sputum and left chest pain about 2-3 weeks ago. He was treated with shots (2 in each hip) in his PCPs office and then antibiotics (small blue pills twice a day for about 10 days). His symptoms got better but over the past week has developed worsening dyspnea and left chest pain. He had a near syncopal event today with incontinence (bladder and bowel) on going to the bathroom so presented to the ER. Investigation in the ER showed severe anemia (Hb 4.5, normocytic), CT chest showed small to mod left loculated pleural effusion, left basilar atelectasis vs consolidation and LLL PE. He has been having some nausea and vomiting over the past few days without hematemesis or coffee ground emesis. Stool has been dark brown without obvious blood. No fever or chills. ? Active Hospital Problems Diagnosis Date Noted - Nicotine use disorder, F17.2 03/25/2018 - Obesity, Class III, BMI >= 40 03/25/2018 - Anemia 03/24/2018 - Atrial fibrillation with RVR (HCC) 03/24/2018 - Pulmonary embolism (HCC) 03/24/2018 Present Diet Order: Clear Liquid Nutritional Intake Prior to Admission: <50% estimated energy need over the past 2 week(s) GI symptoms: currently,patient states he feels some pain in his abdomen but he thinks this is due to hunger. Abdominal Exam: abdomen is distended Is the patient having any pain that is interfering with oral/enteral intake? No ANTHROPOMETRICS Height: 172.7 cm (5' 8) Admission Weight: 120.1 kg (264 lb 12.4 oz) Current Weight: 124.4 kg (274 lb 4 oz) Body mass index is 41.7 kg/m?. class 3 obesity Weight has decreased by 4.54 kg over 2 weeks representing 3.7 % weight change. Last Wt 03/25/18 : 124.4 kg (274 lb 4 oz) 08/01/07 : 114.3 kg (252 lb) [place] Body Weight: 68.4kg Resting Metabolic Rate: 2076 Estimated kilocalorie needs: 9182-2038 kilocalories determined by 25-30 kcal/kg Estimated protein needs: 75-103 grams determined by 1.1-1.5 g/kg [place] weight Estimated fluid needs: 2000 milliliters based on 1 mL per kcal NUTRITION FOCUSED PHYSICAL EXAM: Subcutaneous Fat Loss Orbital No fat loss Triceps No fat loss Mid-axillary at the iliac crest No fat loss Muscle Loss Locations: Temporalis No muscle loss Pectoralis Unable to determine at this time Deltoids Unable to determine at this time Interosseous Unable to determine at this time Latissimus dorsi, trapezius Unable to determine at this time Quadriceps Unable to determine at this time Gastrocnemius Unable to determine at this time Potential micronutrient deficiency revealed in: Skin - pallor Teeth - poor dentition,missing teeth Edema: Yes Generalized Ascites: No Assessment of Functional Status: Functional capacity is unrelated to nutrition status Temperature Max in 24 hours: Temp (24hrs), Av ?C (98.6 ?F), Min:35.8 ?C (96.4 ?F), Max:38.1 ?C (100.6 ?F) BP 84/51 Pulse 72 Temp 36.6 ?C (97.9 ?F) Resp 12 Ht 172.7 cm (5' 8) Wt 124.4 kg (274 lb 4 oz) SpO2 99% BMI 41.70 kg/m? Recent Labs 03/25/18 0800 03/25/18 0210 03/24/18 1400 GLUC -- 207* -- -- BUN -- 18 -- -- CREAT -- 0.53* -- -- NA -- 139 -- -- K -- 3.5 -- -- CHLOR -- 108* -- -- CO2 -- 26 -- -- ALB -- -- -- 1.7* HB 6.5* 7.2* < > -- HCT -- 21.3* -- -- WBC -- 9.23* -- -- < > = values in this interval not displayed. Potential Signs of Inflammation: leukocytosis, hyperglycemia, hypoalbuminemia and imaging studies Intake/Output 03/23/18 07 - 03/24/18 0659 03/24/18 07 - 03/25/18 0659 03/25/18 07 - 03/26/18 0659 Intake (ml) 0 3096.8 774.8 Output (ml) 0 900 0 Net (ml) 0 2196.8 774.8 MNT Billing Type: Initial Assess/15 min 3 units SIGNATURE: Elvis Booker, RD, LD PATIENT NAME: Joel Matson DATE: March 25, 2018 TIME: 12:15 PM PAGER: [phone] GLUCOSE METER Collected: 03/25/2018 Status: F Source: [facility] 11:53 AM HEALTH SYSTEM REPOSITORY TYPE CODE TESTS RESULT OUT OF REFERENCE UNITS RANGE LAB GLUBL(LOINC 70-99 mg/dL ) High Glucose Meter 241 Result Comment: RN NOTIFIED Performed By: #### GLMET #### [place] [address] BRIEF OP NOT Observed: 03/25/2018 Status: COMPLETED Source: [place] 11:32 AM [facility] REPOSITORY HNO ID: [id number] Author: David Ruiz Service: Gastroenterology Author Type: Physician Type: Brief Op Note Filed: 03/25/2018 11:37 AM Note Text: BRIEF OPERATIVE / PROCEDURE NOTE LOG ID: * No surgery found * SURGERY/PROCEDURE DATE: INCISION/PROCEDURE START TIME: INCISION CLOSE/PROCEDURE END TIME: SURGEON(S)/PROCEDURALIST(S) AND ZIPPER SETTER(S): * Surgery not found * * Surgery not found * PROCEDURE(S): EGD +/- Dilatation and Biopsy ANESTHESIA: Versed 3 mg, Fentanyl 50 mcg, Cetacaine spray FINDINGS: 3 small gastric ulcers - bx'd No blood or stigmata of bleeding seen ESTIMATED BLOOD LOSS: None SPECIMENS: as above COMPLICATIONS: None PRE-OP/PRE-PROCEDURE DIAGNOSIS: GI bleed POST-OP/POST-PROCEDURE DIAGNOSIS: as above Daily PPI Colonoscopy Tuesday Follow h/h Dict #: [id number] SIGNATURE: David Ruiz MD PATIENT NAME: Joel Matson DATE: March 25, 2018 TIME: 11:32 AM PAGER/CONTACT #: [phone] Observed: 03/25/2018 Status: COMPLETED Source: [place] 10:10 AM [facility] REPOSITORY HNO ID: [id number] Author: David Cerrato Service: Pulmonary Disease Author Type: Physician Type: Progress Notes Filed: 03/25/2018 4:13 PM Note Text: [facility] STAFF PHYSICIAN NOTE OF PERSONAL INVOLVEMENT IN CARE I have reviewed the progress note obtained and documented by the resident and I personally participated in the quintana components. I have discussed the case and management of the patient's care. The following comments revise or confirm relevant quintana components of the note. 52/M with PMHx of DM and ANDREW (on CPAP) developed cough with sputum and left chest pain about 2-3 weeks ago. He was treated with shots (2 in each hip) in his PCPs office and then antibiotics (small blue pills twice a day for about 10 days). His symptoms got better but over the past week has developed worsening dyspnea and left chest pain. He had a near syncopal event today with incontinence (bladder and bowel) on going to the bathroom so presented to the ER. Investigation in the ER showed severe anemia (Hb 4.5, normocytic), CT chest showed small to mod left loculated pleural effusion, left basilar atelectasis vs consolidation and LLL PE. He has been having some nausea and vomiting over the past few days without hematemesis or coffee ground emesis. Stool has been dark brown without obvious blood. No fever or chills. ? Was also found to be in Afib and was started on amiodarone. Currently in NSR. Had two dark stools overnight/this am. Received another PRBC. c/o mild sob. No cough/sputum production. Mild pleuritic chest pain (left) with deep breathing. 100% 3L [place], laying comfortably in bed Decreased breath sounds in b/l bases, chest pain left on deep breathing but without chest wall tenderness Regular rate and rhythm, NSR Obese, soft, nt/nd No c/c/e IMPRESSION: ? Severe anemia secondary to GIB, likely upper ? Acute hypoxic respiratory failure ? Left loculated small to moderate pleural effusion with adjacent atelectasis/consolidation ? Recently treated for pneumonia x 10 days ? LLL PE ? Paroxysmal Afib: on amiodarone ? ANDREW on CPAP ? DM ? obesity PLAN: ? Blood transfusion, keep Hb>7 ? GI input appreciated, EGD today ? D/W Vascular surgery, Dr Castillo. Patient to d/w family about filter ? If bleeding source controlled, may not need filter but will place if risk of bleeding remains ? Anticoagulation depending on work up and when ok with GI ? D/c amiodarone ? CPAP QHS ? Observe without antibiotics ? LE DVT: negative for clot ? Wean oxygen ? SCDs ? ICU monitoring ? Patient/Family Updated: yes. SIGNATURE: David Cerrato MD [facility] PAGER:[phone] DATE of SERVICE: March 25, 2018 TIME of SERVICE: 10:33 AM CONSULT Observed: 03/25/2018 Status: COMPLETED Source: [place] 10:02 AM CLINIC OTHER CAMPUS REPOSITORY O ID: [id number] Author: Monica Saavedra) Colten Service: Gastroenterology Author Type: Nurse Specialist Type: Consults Filed: 03/25/2018 10:15 AM Note Text: INITIAL CONSULT GASTROENTEROLOGY SERVICE DATE: 03/25/2018 SERVICE TIME: 10:03 AM Consulting Service: Critical Care Opinion/advice regarding: GI bleed Subjective HPI: This is a 52 year old male who presents with chest pain, cough and shortness of breath that has worsened over the last weeks. He also had a near syncopal event while using the bathroom on the day of presentation. His Hgb on presentation was 4.7 and he had two dark bloody stools since presentation. GI was consulted for evaluation of GI bleeding. No past medical history on file. No past surgical history on file. No family history on file. Social History Substance Use Topics - Smoking status: Not on file - Smokeless tobacco: Current User Types: Snuff Comment: 1 can per day - Alcohol use Yes Comment: weekends MEDICATIONS: Prior to Admission Medications: COMPOUNDED PRESCRIPTION testosterone cream for testic CA COMPOUNDED PRESCRIPTION glucophage dose not known Exenatide 10 mcg/0.04 mL SUBCUTANEOUS PnIj Take one(1) tablet two(2) times daily. COMPOUNDED PRESCRIPTION diabetic med, name/dose unknown COMPOUNDED PRESCRIPTION lexapro, dose unknown Current hospital medications: potassium chloride 80-120 mEq oral liquid 80-120 mEq ORAL/FEEDING TUBE PRN potassium chloride iv piggyback 20 mEq in sterile water 100 mL 20 mEq INTRAVENOUS PRN magnesium sulfate in water 2 g in sterile water 50 ml 2 g INTRAVENOUS PRN sodium phosphate 45 mmol in NaCl 0.9% 250 mL 45 mmol INTRAVENOUS PRN calcium gluconate 4 g in NaCl 0.9% 250 mL 4 g INTRAVENOUS PRN NaCl 0.9% iv infusion 100 mL/hr INTRAVENOUS CONTINUOUS dextrose 40 % 15 g 15 g ORAL PRN glucagon 1 mg injection (GLUCAGEN) 1 mg INTRAMUSCULAR PRN dextrose 50% in water 25 mL syringe 12.5 g INTRAVENOUS PRN insulin regular human injection (short acting) (NovoLIN R,HumuLIN R) SUBCUTANEOUS q 6 H ondansetron (PF) 4 mg injection (ZOFRAN) 4 mg INTRAVENOUS q 6 H PRN amiodarone 360 mg in D5W 200 mL (NEXTERONE) 1 mg/min INTRAVENOUS CONTINUOUS iv contrast (radiology procedure) INTRAVENOUS DIRECTED PRN prochlorperazine 5 mg injection (COMPAZINE) 5 mg INTRAVENOUS q 6 H PRN ALLERGIES No Known Allergies GI SPECIFIC REVIEW OF SYSTEMS: Positive for nausea, vomiting, bright red blood per rectum Negative for dysphagia, heartburn, acid reflux, hematemesis, melena Negative for decreased appetite, decreased oral intake Negative for change in weight No alteration in bowel habits OTHER ROS: Negative for fever, night sweats, sleep problems, mood or depression. PAIN ASSESSMENT: Negative for pain, history of chronic pain, or current treatment for a chronic pain condition. GENERAL: No weight loss, malaise or fevers HEENT: Negative for frequent or significant headaches, No changes in hearing or vision, no nose bleeds or other nasal problems NECK: Negative for lumps, goiter, pain and significant neck swelling RESPIRATORY: Cough; moist, Shortness of breath CARDIOVASCULAR: Chest pain : No history of dysuria, frequency or incontinence MUSCULOSKELETAL: Negative for joint pain or swelling, back pain or muscle pain SKIN: Negative for lesions, rash, and itching PSYCH: Negative for sleep disturbance, mood disorder and recent psychosocial stressors HEMATOLOGY/LYMPHOLOGY: Negative for prolonged bleeding, bruising easily or swollen nodes ENDOCRINE: Negative for cold or heat intolerance, polyuria, polydipsia and goiter NEURO: No history of headaches, syncope, paralysis, seizures or tremors Objective PHYSICAL EXAM: BP 94/50 Pulse 78 Temp 36 ?C (96.8 ?F) Resp 14 Ht 172.7 cm (5' 8) Wt 124.4 kg (274 lb 4 oz) SpO2 99% BMI 41.70 kg/m? GENERAL- AAO x 3, no distress HEENT: Moist mucus membranes. Tongue pink and midline LUNGS: Clear to auscultation bilaterally CARDIAC: S1, S2 heard. Heart rate regular ABDOMEN: Soft, non-tender without guarding or rigidity, normal bowel sounds EXTREMITIES: No pedal edema DATA: Diagnostic Tests Reviewed for Today's Visit: Most recent labs and imaging results. CBC, Coags, BMP, Mg, Phos Recent Labs 03/25/18 0800 03/25/18 0210 03/24/18 1955 03/24/18 1600 03/24/18 1345 WBC -- 9.23* -- -- 8.91 HB 6.5* 7.2* 6.3* -- 4.7* HCT -- 21.3* -- -- 15.3* PLT -- 116* -- -- 146 APTT -- -- -- 19.1* -- NA -- 139 -- -- 137 K -- 3.5 -- -- 3.8 CHLOR -- 108* -- -- 105 CO2 -- 26 -- -- 27 BUN -- 18 -- -- 15 CREAT -- 0.53* -- -- 0.52* GLUC -- 207* -- -- 310* CA -- 7.1* -- -- 7.3* CSF AND Dilantin Liver Function, Amylase, AND Lipase Recent Labs 03/24/18 1400 03/24/18 1345 TPROT 4.8* -- ALB 1.7* -- ALT 18 -- AST 19 -- ALKPHOS 66 -- TBILI 1.7* -- LACT -- 1.1 LD total - 185 Haptoglobin - 153 CT abdomen - nodular liver, cholelithiasis, no dilated bowel. Colonic diverticulosis. Pleural effusion Impression/Recommendations Anemia - acute normocytic. Had two bloody bowel movements today. Reported episodic bright red blood per rectum at home -Monitor Hgb/Hct - transfuse as needed - Monitor BMs for bleeding - Consider bleeding scan for continued episodes of rectal bleeding - Plan EGD today with Dr. Ruiz - May need colonoscopy depending on results of EGD Atrial fibrillation with RVR - on Amiodarone drip - managed per primary team Pulmonary embolism- acute. Unable to anticoagulate due to GI bleeding - Possible IVC filter - Vascular surgery following Plan EGD with Dr. Ruiz. Discussed with patient and he is in agreement GI will continue to follow Thank you for the consult SIGNATURE: Monica Abel APRN.INFORMATICA MDM ARCHITECT PATIENT NAME: Joel Matson DATE: March 25, 2018 TIME: 10:02 AM PAGER/CONTACT #: [phone] RBC PRODUCTS Collected: 03/25/2018 Status: F Source: [facility] 9:25 AM HEALTH SYSTEM REPOSITORY TYPE CODE TESTS RESULT OUT OF REFERENCE UNITS RANGE LAB UNIT1(LOINC ) Xmatch Unit 1 see below Result Comment: Compatible Performed By: #### RBCPS #### [facility] [address] [place] [id number] NURSING PROG Observed: 03/25/2018 Status: COMPLETED Source: [place] 9:20 AM [facility] REPOSITORY HNO ID: [id number] Author: Cordelia (Rn) INEZ Luz Service: ADT-MICU Author Type: Registered Nurse Type: Nursing Progress Note Filed: 03/25/2018 9:29 AM Note Text: Dr Tellez notifed in person hg 6.5. PRBC 1 unit ordered CONSULT Observed: 03/25/2018 Status: COMPLETED Source: [place] 9:04 AM [facility] REPOSITORY HNO ID: [id number] Author: Earl Cho) Mike Service: Vascular Surgery Author Type: Resident Type: Consults Filed: 03/25/2018 9:08 AM Note Text: Attestation signed by Barbara Castillo at 03/25/2018 9:23 AM I saw and evaluated the patient. Discussed with the resident and agree with resident's findings and plan as documented in the resident's note. D/W pt need for filter. Pt with PE, unable to anticoagulate secondary to GI bleeding while on heparin. In addition, pt may need thoracic intervention. Request made for IVC filter. R/B/A explained including bleeding, infection, hematoma, caval thrombosis, migration and perforation. Also discussed the need to have this removed within a year. The pt would like to discuss this with his family. As the pt had an US of his LE that were negative, the pt has low risk of an event happening while he considers his options. Will check back with pt later. Barbara Castillo MD Vascular Consult Note SERVICE DATE: 03/25/2018 Subjective SUBJECTIVE: Pt presented with PE from unknown Source. In addition pt is having gi bleeding from unknown source - initial Hb 4.5 in ED. Patient is currently unable to be anticoagulated. Primary team requesting filter for possible lower ext source. Denies N/V/CP/SOB Diet: DIET NPO Objective OBJECTIVE: Vitals: BP 95/55 Pulse 74 Temp (Src) 96.6 (Axillary) Resp 13 Ht 5' 8 (1.73m) Wt 274 lb 4 oz (124.4kg) SpO2 96% BMI 41.71 kg/(m2). Temp (24hrs), Av.1 ?C (98.8 ?F), Min:35.8 ?C (96.4 ?F), Max:38.1 ?C (100.6 ?F) O2 Therapy: Nasal Cannula IANDO: Date 03/24/18 0700 - 03/25/18 0659 03/25/18 0700 - 03/26/18 0659 Shift 4258-9436 3468-6898 9630-4375 24 Hour Total 0262-5200 4888-9135 6568-1605 24 Hour Total I N T A K E IV 1200.9 958.9 2159.8 228.7 228.7 NS 0.9% 281 316 5091 196 196 Amiodarone 416.9 134.9 551.8 32.7 32.7 Blood Products 937 937 PRBC Intake (mL) 934 934 Packed Red Blood Cells Number of Units 3 3 Shift Total 2137.9 958.9 3096.8 228.7 228.7 O U T P U T Urine 400 500 0 900 Void (ml) 400 500 0 900 Urine Incontinence/Not Saved 1 x 1 x 1 x 1 x # of BMs Stool Incontinence 1 x 1 x Number of BMs 0 x 1 x 1 x Shift Total 400 500 0 900 Weight (kg) 120.1 120.1 124.4 124.4 124.4 124.4 124.4 124.4 MEDICATIONS Current Facility-Administered Medications: potassium chloride 80-120 mEq oral liquid 80-120 mEq ORAL/FEEDING TUBE PRN potassium chloride iv piggyback 20 mEq in sterile water 100 mL 20 mEq INTRAVENOUS PRN magnesium sulfate in water 2 g in sterile water 50 ml 2 g INTRAVENOUS PRN sodium phosphate 45 mmol in NaCl 0.9% 250 mL 45 mmol INTRAVENOUS PRN calcium gluconate 4 g in NaCl 0.9% 250 mL 4 g INTRAVENOUS PRN NaCl 0.9% iv infusion 100 mL/hr INTRAVENOUS CONTINUOUS dextrose 40 % 15 g 15 g ORAL PRN Or glucagon 1 mg injection (GLUCAGEN) 1 mg INTRAMUSCULAR PRN Or dextrose 50% in water 25 mL syringe 12.5 g INTRAVENOUS PRN insulin regular human injection (short acting) (NovoLIN R,HumuLIN R) SUBCUTANEOUS q 6 H ondansetron (PF) 4 mg injection (ZOFRAN) 4 mg INTRAVENOUS q 6 H PRN amiodarone 360 mg in D5W 200 mL (NEXTERONE) 1 mg/min INTRAVENOUS CONTINUOUS iv contrast (radiology procedure) INTRAVENOUS DIRECTED PRN prochlorperazine 5 mg injection (COMPAZINE) 5 mg INTRAVENOUS q 6 H PRN Labs: Recent Labs 03/25/18 0210 03/24/18 1955 03/24/18 1400 03/24/18 1345 NA 139 -- -- 137 K 3.5 -- -- 3.8 CHLOR 108* -- -- 105 CO2 26 -- -- 27 BUN 18 -- -- 15 CREAT 0.53* -- -- 0.52* GLUC 207* -- -- 310* ANION 9 -- -- 9 CA 7.1* -- -- 7.3* ALB -- -- 1.7* -- AST -- -- 19 -- ALT -- -- 18 -- ALKPHOS -- -- 66 -- TBILI -- -- 1.7* -- WBC 9.23* -- -- 8.91 HB 7.2* 6.3* -- 4.7* HCT 21.3* -- -- 15.3* PLT 116* -- -- 146 LACT -- -- -- 1.1 No results for input(s): BODSITE, CTYPE, PH, PCO2, PO2, BE, HCO3, CO2CT, O2HB, COHB, MHGB, TEMP, PHTC, PCO2T, PO2T, O2AD in the last 72 hours. Exam: GENERAL: Alert, no distress, cooperative SKIN: Skin color, texture, turgor normal. No rashes or lesions. LUNGS: Unlabored breathing on O2 Therapy: Nasal Cannula on Liters: 4 sating at SpO2: 96 % CARDIAC: rate and rhythm as above, ABDOMEN: Benign, Soft, non-tender, No masses, hepatosplenomegaly and No lymphadenopathy EXTREMITIES: ROM of all joint grossly normal: strength grossly normal bilaterally. No deformities noted. WOUND: not applicable ASSESSMENT AND PLAN: Assessment/Plan This is a 52 year old male Patient wants to discuss filter with family Will possibly place later today vs tomorrow Assessment and plan discussed with attending: Dr. Castillo SIGNATURE: Earl Mckeon MD PATIENT NAME: Joel Matson DATE: March 25, 2018 TIME: 9:05 AM Pager: [phone] HGB Collected: 03/25/2018 Status: F Source: [facility] 8:00 AM HEALTH SYSTEM REPOSITORY TYPE CODE TESTS RESULT OUT OF RANGE REFERENCE UNITS LAB HGBI(LOINC) 13.7-17.5 g/dL Low alert Hgb 6.5 Performed By: #### HGBI #### [facility] [address] [place] [address] GLUCOSE METER Collected: 03/25/2018 Status: F Source: [facility] 6:18 AM HEALTH SYSTEM REPOSITORY TYPE CODE TESTS RESULT OUT OF REFERENCE UNITS RANGE LAB GLUBL(LOINC 70-99 mg/dL ) High Glucose Meter 208 Performed By: #### GLMET #### [place] [id number] HEMOGRAM Collected: 03/25/2018 Status: F Source: [facility] 2:10 AM HEALTH SYSTEM REPOSITORY TYPE CODE TESTS RESULT OUT OF REFERENCE UNITS RANGE LAB WBC(LOINC) 4.23-9.07 thou/cmm WBC High 9.23 LAB RBC(LOINC) 4.63-6.08 mil/cmm Low RBC 2.45 LAB HGB(LOINC) 13.7-17.5 g/dL Low Hgb 7.2 LAB HCT(LOINC) 40.1-51.0 % Low Hct 21.3 LAB MCV(LOINC) 83.2-95.6 fl MCV 86.9 LAB MCH(LOINC) 25.7-32.2 pg MCH 29.4 LAB MCHC(LOINC 32.3-36.5 % ) MCHC 33.8 LAB RDW(LOINC) 11.6-14.4 % RDW High 16.9 LAB RDWSD(LOIN 36.1-45.8 fl C) RDW SD 44.1 LAB PLT(LOINC) 141-365 thou/cmm Low Platelet 116 LAB MPV(LOINC) 8.7-12.0 fl MPV 9.6 LAB NRBCR(LOIN 0.0-0.2 % C) High Nucleated RBC % 2.7 LAB NRBCA(LOIN 0.00-0.01 thou/cmm C) High Nucleated RBC 0.25 Absolute Performed By: #### CBC1 #### [place] [address] BASIC PANEL Collected: 03/25/2018 Status: F Source: [facility] 2:10 AM HEALTH SYSTEM REPOSITORY TYPE CODE TESTS RESULT OUT OF REFERENCE UNITS RANGE LAB NA(LOINC) 136-145 mEq/L Sodium Blood 139 LAB K(LOINC) 3.5-5.1 mEq/L Potassium Blood 3.5 LAB CL(LOINC) 98-107 mEq/L Chloride High Blood 108 LAB CO2(LOINC) 21-32 mEq/L CO2 Blood 26 LAB GLU(LOINC) 70-99 mg/dL Glucose High Blood 207 LAB BUN(LOINC) 7-18 mg/dL BUN Blood 18 LAB CREA(LOINC 0.67-1.17 mg/dL ) Low Creatinine Blood 0.53 LAB CA(LOINC) 8.5-10.1 mg/dL Low Calcium Blood 7.1 LAB ANGAP(LOIN 8-16 C) Anion Gap 9 Performed By: #### P8 #### [place] [address] MDRD GFR Collected: 03/25/2018 Status: F Source: [facility] 2:10 AM HEALTH SYSTEM REPOSITORY TYPE CODE TESTS RESULT OUT OF RANGE REFERENCE UNITS LAB GFRFN(LOINC >60mL/min/1.73m ) 2 eGFR >60 Result Comment: If the patient is , multiply the result by 1.210. Performed By: #### GFR #### [place] [address] OPERATIVE NO Observed: 03/25/2018 Status: COMPLETED Source: [place] 12:00 AM CLINIC OTHER CAMPUS REPOSITORY HNO ID: [id number] Author: David Ruiz Service: Gastroenterology Author Type: Physician Type: Operative Report Filed: 03/27/2018 12:18 PM Note Text: [facility] - Operative Report SURGEON: David Ruiz MD PATIENT NAME: JOEL MATSON CSN: [id number] DATE OF SURGERY: 03/25/2018 DATE OF : 1965 SEX/AGE: M/52 PATIENT TYPE: I HOSP SVC: [facility] LOCATION: [id number] DATE OF SURGERY: 03/25/2018 SURGEON: David Ruiz MD PROCEDURE: Esophagogastroduodenoscopy with biopsy. INDICATION: This is a 52-year-old male, admitted to the intensive care unit with severe anemia and some blood in his stool. GI consult was obtained for further evaluation for GI bleeding source. POSTPROCEDURE DIAGNOSIS: 1. 3 small clean based antral ulcer was seen. Biopsies were obtained from the Antrum to rule out H. pylori. 2. No blood or stigmata of bleeding seen on this examination. PROCEDURE IN DETAIL: Informed consent was obtained after explaining the patient indications, benefits, alternative tests, and risks including but not limited to perforation, bleeding, phlebitis, and medication reactions. MEDICATIONS: Versed 3 mg IV, fentanyl 50 mcg IV. He also received Cetacaine spray to hypopharynx. PROCEDURE IN DETAIL: The Olympus video upper endoscope was advanced under direct visualization to the second portion of duodenum. Duodenal bulb and second portion appeared grossly normal. In the gastric antrum, there were 3 small clean based ulcers. These were on the order of about 3 mm in size. There was no blood or stigmata of bleeding seen throughout this examination. Biopsies were obtained from the gastric antrum to rule out H. pylori. Retroflex views in the stomach were unremarkable. The esophagus appeared normal. The Z-line at margin of gastric folds and diaphragmatic hiatus at 44 cm incisors. The patient tolerated the procedure without immediate complication. RECOMMENDATIONS: 1. Daily oral PPI. 2. Follow serial H and Hs and transfuse to keep hemoglobin greater than 7. 3. If the patient exhibits signs of active bleeding such as bright red blood per rectum, would proceed with stat bleeding scan. 4. Otherwise proceed with colonoscopy on Tuesday to further evaluate source for GI blood loss. David Ruiz MD Gastroenterology LEONOR:modl /[id number] cc:MD David Turner MD SURGICAL TISSUE EXAM Observed: 03/25/2018 Status: F Source: [facility] 12:00 AM HEALTH SYSTEM REPOSITORY Test performed at [place] [address] NAME: JOEL MATSON REQUESTING: DAVID CERRATO M.D. FINAL DIAGNOSIS: STOMACH, ANTRUM, BIOPSY - MINIMAL CHRONIC GASTRITIS. IMMUNOHISTOCHEMICAL STAIN FOR HELICOBACTER PYLORI IS NEGATIVE FOR ORGANISMS. OPERATIVE PROCEDURE: EGD CLINICAL INFORMATION: GI bleed/anemia GROSS DESCRIPTION: Antrum biopsy Received in formalin labeled antral biopsy are two cheng soft tissues aggregating to 0.6 x 0.3 x 0.2 cm, which are totally submitted in one cassette. Levels x 3, plus H. pylori. BMP:mellisa CORNEJO M.D., PATHOLOGIST (Electronic signature on file) Signed out: 03/28/2018 14:07 PRINTED: 03/28/2018 Page 1 of 1 Performed By: #### SURG #### [place] [address] GLUCOSE METER Collected: 03/24/2018 Status: F Source: [facility] 11:05 PM HEALTH SYSTEM REPOSITORY TYPE CODE TESTS RESULT OUT OF REFERENCE UNITS RANGE LAB GLUBL(LOINC 70-99 mg/dL ) High Glucose Meter 270 Performed By: #### GLMET #### [place] [address] US DVT LOWER BILATERAL Observed: 03/24/2018 Status: F Source: [facility] 10:35 PM HEALTH SYSTEM REPOSITORY Performed at [facility] APPROVED BY: Sylvester Gutierrez MD Exam Title: ULTRASOUND OF THE BOTH LOWER EXTREMITIES WITH DOPPLER AND COLOR DOPPLER FOR DEEP VENOUS THROMBOSIS. DATE: 03/24/2018 21:50 Comparison: None. Clinical Indication/History: The patient is a 52-year-old male with acute onset of respiratory insufficiency with suspicion of pulmonary embolism. Technique: Real time ultrasound with graded compression and distal augmentation, as well as Doppler and color Doppler imaging of each common femoral, femoral, popliteal, and as much as could be visuali zed of the trifurcation veins. FINDINGS: No intraluminal echogenic material is noted. The venous structures demonstrate normal compressibility throughout their course. There is spontaneous flow and normal augmentation with distal compression at all levels. IMPRESSION: There is no evidence of deep venous thrombosis within either lower extremity. RBC PRODUCTS Collected: 03/24/2018 Status: F Source: [facility] 9:05 PM HEALTH SYSTEM REPOSITORY TYPE CODE TESTS RESULT OUT OF REFERENCE UNITS RANGE LAB UNIT1(LOINC ) Xmatch Unit 1 see below Result Comment: Compatible Performed By: #### RBCPS #### [facility] [address] [place] [address] HGB Collected: 03/24/2018 Status: F Source: [facility] 7:55 PM HEALTH SYSTEM REPOSITORY TYPE CODE TESTS RESULT OUT OF RANGE REFERENCE UNITS LAB HGBI(LOINC) 13.7-17.5 g/dL Low alert Hgb 6.3 Performed By: #### HGBI #### [facility] [address] [place] [address] GLUCOSE METER Collected: 03/24/2018 Status: F Source: [facility] 5:36 PM HEALTH SYSTEM REPOSITORY TYPE CODE TESTS RESULT OUT OF REFERENCE UNITS RANGE LAB GLUBL(LOINC 70-99 mg/dL ) High Glucose Meter 394 Result Comment: RN NOTIFIED Performed By: #### GLMET #### [place] [address] EMERGENCY DEPARTMENT Observed: 03/24/2018 Status: F Source: [place] [facility] 5:15 PM [facility] [place] [place] REPOSITORY [facility] Medical Records Department [address] [place] [address] Emergency Department Summary 03/24/18 0828 MR#: [id number] Acct: [id number] Name: JOEL MATSON Rep #: [id number] : 1965 52 From: Fred Brooks MD PCP: Herminio GARCIA,Ravindra Russo Status: DEP ER - ER Visit Summary Date of Service: 03/24/18 Chief Complaint: Chest pain History of Present Illness: The patient is a [address] Durham. He reports that he has had lower left chest pain for approximately the past week. States that is intermittent and lasts minutes at a time. It is brought on by exertion and relieved by rest. He describes the pain as a panic attack. It is 5 out of 10 at worst and he is 1 out of 10 currently. He reports that it is associated with severe shortness of breath. He does have nausea and diaphoresis with this at times. States that he is also lightheaded during these episodes. He also states that he has left shoulder pain that has been constant for the past week. Patient reports that this morning he was laying down and then stood up and walked up 2 flights of stairs. He sat down on the toilet and the next thing he knew his was cleaning him up. He denies any injuries from the fall. Does report that prior to this he was short of breath. He denies any chest pain or palpitations. Patient reports that he had pneumonia 2 weeks ago and was on an unknown antibiotic which he took twice daily for 1 week. He states his cough is greatly improved and is now nonproductive. He denies any fever or chills. Patient had an echocardiogram 3 days ago and a stress test yesterday. He has a history of high blood pressure, high cholesterol, type 2 diabetes as cardiac risk factors. He also has a history of obstructive sleep apnea. No family history of coronary artery disease. No family history of DVTs. No recent travel or personal history of DVT. No ankle swelling or calf pain. Physical Examination: Vitals: 9.0, 150/67, 99, 20, 97% on room air which is not hypoxic. General: Well-nourished and well-developed. Head: Normocephalic atraumatic. Neck: Supple, no lymphadenopathy. No JVD. Nontender. Cardiovascular: Regular rate and rhythm. No murmurs. Respiratory: No respiratory distress. Clear to auscultation bilaterally. Abdominal: Soft, nontender, nondistended, normal bowel sounds. No guarding, rebound, or peritoneal signs. Back: Nontender. Extremities: Nontender, no edema. Skin: Normal color, no rash. Neurologic: Alert and oriented 3. Cranial nerves II through XII are intact. Normal strength and sensation. Psych: Normal affect. Test Results: EKG is sinus tach at [address] segments laterally. There is no old EKG for comparison. CBC is remarkable for hemoglobin of 4.3 and hematocrit of 14.1. His hemoglobin was 13.5 on March 03. Chem-7 is more for creatinine is 0.62, glucose 340, calcium 7.7. INR is 1.1. PTT is 25.8. Lactic acid is 1.0. Initial troponin is less than 0.015. D-dimer is 1.83. Chest x-ray shows a left pleural effusion. CTA of the chest shows small to moderate size left pleural effusion with areas of loculation. Left lower lobe infiltrate and/or atelectasis. Several nonocclusive intraluminal filling defects are seen in the branches a left lower lobe pulmonary artery. Echocardiogram shows normal systolic function. No evidence of diastolic dysfunction. Ejection fraction is 70%. Trivial tricuspid and mitral valve insufficiency. Stress test from yesterday 60% of the max predicted heart rate was achieved with Regadenoson. Ejection fraction was 65%. Small area of subtle decreased uptake in the lateral apical segments that is unchanged between rest and stress. Emergency Department Course and Treatment: Patient was given aspirin. He was given a liter bolus of normal saline. Patient was typed and crossed and given 2 units of packed red blood cells. During his stay in the emergency department he went into atrial fibrillation with RVR. His rate is in the 130s-150s and his systolic blood pressure is in the 1 teens. He was given amiodarone IV. He was given Zosyn IV. He was given Protonix IV. Treatment Plan: The patient was discussed with Dr. Bahena. Given the empyema and anemia is felt that he would be better served at a tertiary care center where he could see a cardiothoracic surgeon and gastroenterology. Patient decided to go to [facility]. He was discussed with Dr. Jones. At this time he will not be anticoagulated due to the anemia and the peripheral nature of these PEs. He will have lower extremity Dopplers and if these are positive he will have an IVC filter placed. Disposition: Transferred in critical condition. Impression: 1. Anemia. 2. Syncope. 3. Left pleural effusion/empyema. 4. Atrial fibrillation with RVR. 5. PE. 6. Critical care time 30 minutes. This note was generated with [employer] software. It may contain incorrect words, spelling, and punctuation that were not noted in review of the chart prior to signing ED Disposition - Plan for ED Patient: Chief Complaint: Chest Pain Referrals: Ravindra Durham Chi, MD [Primary Care Provider] - What to do if you have Problems For any increased pain, shortness of breath, bleeding, nausea or vomiting, chest pain, or any unexpected problems, contact your Primary Care Provider. Call [facility] ([phone]) or report to the closest Emergency Room. Call 911 if necessary. 03/24/18 1715 <Electronically signed by Fred Brooks MD> Date Fred Brooks MD Cosigner Signature (If Indicated): Date CC: Ravindra Durham MD RBC PRODUCTS Collected: 03/24/2018 Status: F Source: [facility] 5:14 PM HEALTH SYSTEM REPOSITORY TYPE CODE TESTS RESULT OUT OF REFERENCE UNITS RANGE LAB UNIT1(LOINC ) Xmatch Unit 1 see below Result Comment: Compatible Performed By: #### RBCPS #### [place] [address] ACTIVATED PTT Collected: 03/24/2018 Status: F Source: [facility] 4:00 PM HEALTH SYSTEM REPOSITORY TYPE CODE TESTS RESULT OUT OF REFERENCE UNITS RANGE LAB APTT(LOINC 22.0-34.0 sec ) Low Activated PTT 19.1 Result Comment: RESULT RECHECKED Performed By: #### APTT #### [place] [address] ABO/RH CONFIRMATION Collected: 03/24/2018 Status: F Source: 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 TECHNIQUE: Non-IV contrast imaging of the abdomen and pelvis was performed using standard technique, scanning from just above the dome of the diaphragm to the symphysis pubis. Unenhanced imaging is young ited for the evaluation of some intra-abdominal and pelvic pathology. Sagittal and coronal reconstructions were performed. MQ: [id number] Contrast: IV: None. No additional IV contrast was administered for this exam. The patient received IV contrast earlier in the same day for pulmonary angiogram. Oral: None. CT Radiation dose: Integrated Dose-length product (DLP) for this visit = 1125 mGy*cm. CT Dose Reduction Employed: Automated exposure control (AEC) was used. COMPARISON: 02/23/07 RESULT: Abdomen / Pelvis: Liver: Slight nodular contours to the liver which can be seen in the setting of liver disease such as cirrhosis. Biliary: Small stones layering in the neck of the gallbladder. No bile duct dilatation. Spleen: Unremarkable. Pancreas: Unremarkable. Adrenals: No mass. Kidneys: No hydronephrosis. Contrast is seen within the intrarenal collecting systems and ureters. GI Tract: No dilated bowel. There is radiopaque dense material within the distal ileum and ascending colon. Small amount of radiopaque material is also seen in the transverse colon. Is unclear whethe r this is ingested material or whether it represents intravenous contrast extravasation. Diverticulosis in the sigmoid colon. Lymph Nodes: No lymphadenopathy. Mesentery/peritoneum: Trace ascites in the lower abdomen and pelvis. Retroperitoneum: No mass. Vasculature: Abdominal aorta not aneurysmally dilated. Pelvis: No mass or fluid collection. Bones/Soft Tissues: No significant additional findings. Lower thorax: Moderate size left-sided pleural effusion with volume loss in the left lower lobe. Right lung base is clear. IMPRESSION: The only finding is radiopaque material within the distal ileum and ascending and transverse colon which could represent extravasated IV contrast which was administered earlier in the same day for PE st udy. Otherwise it may represent ingested material. Correlation with tagged red blood cell scan may be helpful. Colonic diverticulosis. No radiographic evidence for acute diverticulitis. Changes in the liver raise concern for cirrhosis. Cholelithiasis. Moderate size left-sided pleural effusion. CHEST 1 VIEW Observed: 03/24/2018 Status: F Source: [facility] 2:24 PM HEALTH SYSTEM REPOSITORY Performed at [facility] APPROVED BY: Julien Ma MD EXAM TITLE: CHEST 1 VIEW DATE: 03/24/2018 14:21 INDICATION: Chest pain and shortness of breath. COMPARISON: Outside CT scan dated . Portable frontal view of the chest shows small to moderate left-sided pleural effusion with decreased aeration at the left lung base. The left upper lung is clear. The right lung is clear. Heart size is normal. IMPRESSION: Left-sided pleural effusion with diminished aeration at the left lung base. Similar to prior CT scan. LD,TOTAL BLOOD Collected: 03/24/2018 Status: F Source: [facility] 2:00 PM HEALTH SYSTEM REPOSITORY TYPE CODE TESTS RESULT OUT OF RANGE REFERENCE UNITS LAB LDH(LOINC) 84-246 U/L LD,Total 185 Blood Performed By: #### LDH #### [place] [address] HEPATIC PANEL Collected: 03/24/2018 Status: F Source: [facility] 2:00 PM HEALTH SYSTEM REPOSITORY TYPE CODE TESTS RESULT OUT OF REFERENCE UNITS RANGE LAB ALB(LOINC) 3.4-5.0 g/dL Low Albumin Blood 1.7 LAB ALT(LOINC) 12-78 U/L ALT-SGPT Blood 18 LAB ALKP(LOINC 46-116 U/L ) Alk Phosphatase 66 LAB TP(LOINC) 6.4-8.2 g/dL Low Total Protein 4.8 LAB AST(LOINC) 9-37 U/L AST-SGOT Blood 19 LAB BILIT(LOIN 0.2-1.0 mg/dL C) Total High Bilirubin 1.7 LAB DBIL(LOINC 0.00-0.20 mg/dL ) Direct High Bilirubin 0.35 Performed By: #### HEPAP #### [place] [address] HAPTOGLOBIN Collected: 03/24/2018 Status: F Source: [facility] 2:00 PM HEALTH SYSTEM REPOSITORY TYPE CODE TESTS RESULT OUT OF REFERENCE UNITS RANGE LAB HAP(LOINC) 30.0-200.0 mg/dL Haptoglobin 153.0 Performed By: #### HAP #### [place] [address] Observed: 03/24/2018 Status: F Source: [facility] MRSA SCREEN 2:00 PM HEALTH SYSTEM REPOSITORY Test performed at [facility] No MRSA detected. Performed By: #### MRSA #### [place] [address] COLD AGGLUTININS Collected: 03/24/2018 Status: F Source: [facility] 2:00 PM HEALTH SYSTEM REPOSITORY TYPE CODE TESTS RESULT OUT OF REFERENCE UNITS RANGE LAB COLDX(LOIN C) Cold Agglutinins SEE BELOW Result Comment: Cold, 4 Degrees C <1:32 Dilutions Reference Range: <1:32 Cold, 37 Degrees C SEE BELOW Dilutions Test not indicated when titer is <1:32 at 4 degrees C. Performing Laboratory: [facility] [address] [place] [address] Performed By: #### COLDX #### [place] [address] BASIC PANEL Collected: 03/24/2018 Status: F Source: [facility] 1:45 PM HEALTH SYSTEM REPOSITORY TYPE CODE TESTS RESULT OUT OF REFERENCE UNITS RANGE LAB NA(LOINC) 136-145 mEq/L Sodium Blood 137 LAB K(LOINC) 3.5-5.1 mEq/L Potassium Blood 3.8 LAB CL(LOINC) 98-107 mEq/L Chloride Blood 105 LAB CO2(LOINC) 21-32 mEq/L CO2 Blood 27 LAB GLU(LOINC) 70-99 mg/dL Glucose High Blood 310 LAB BUN(LOINC) 7-18 mg/dL BUN Blood 15 LAB CREA(LOINC 0.67-1.17 mg/dL ) Low Creatinine Blood 0.52 LAB CA(LOINC) 8.5-10.1 mg/dL Low Calcium Blood 7.3 LAB ANGAP(LOIN 8-16 C) Anion Gap 9 Performed By: #### P8 #### [place] [address] MDRD GFR Collected: 03/24/2018 Status: F Source: [facility] 1:45 PM HEALTH SYSTEM REPOSITORY TYPE CODE TESTS RESULT OUT OF RANGE REFERENCE UNITS LAB GFRFN(LOINC >60mL/min/1.73m ) 2 eGFR >60 Result Comment: If the patient is , multiply the result by 1.210. Performed By: #### GFR #### [facility] [address] [place] [id number] HEMOGRAM Collected: 03/24/2018 Status: F Source: [facility] 1:[facility] REPOSITORY TYPE CODE TESTS RESULT OUT OF REFERENCE UNITS RANGE LAB WBC(LOINC) 4.23-9.07 thou/cmm WBC 8.91 LAB RBC(LOINC) 4.63-6.08 mil/cmm Low RBC 1.62 LAB HGB(LOINC) 13.7-17.5 g/dL Low Hgb alert 4.7 LAB HCT(LOINC) 40.1-51.0 % Low Hct alert 15.3 LAB MCV(LOINC) 83.2-95.6 fl MCV 94.4 LAB MCH(LOINC) 25.7-32.2 pg MCH 29.0 LAB MCHC(LOINC 32.3-36.5 % ) Low MCHC 30.7 LAB RDW(LOINC) 11.6-14.4 % RDW High 18.1 LAB RDWSD(LOIN 36.1-45.8 fl C) RDW High SD 50.6 LAB PLT(LOINC) 141-365 thou/cmm Platelet 146 LAB MPV(LOINC) 8.7-12.0 fl MPV 9.4 LAB NRBCR(LOIN 0.0-0.2 % C) High Nucleated RBC % 2.0 LAB NRBCA(LOIN 0.00-0.01 thou/cmm C) High Nucleated RBC 0.18 Absolute Performed By: #### CBC1 #### [facility] [address] [place] [address] LACTIC ACID Collected: 03/24/2018 Status: F Source: [facility] REPOSITORY TYPE CODE TESTS RESULT OUT OF REFERENCE UNITS RANGE LAB LAC(LOINC) 0.4-2.0 mEq/L Lactic Acid 1.1 Performed By: #### LAC #### [facility] [address] [place] [address] TYPE AND SCREEN Collected: 03/24/2018 Status: F Source: 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 Redraw patient at that time. Performed By: #### T&S #### [facility] [address] [place] [address] RBC PRODUCTS Collected: 03/24/2018 Status: F Source: [facility] 1:45 PM HEALTH SYSTEM REPOSITORY TYPE CODE TESTS RESULT OUT OF REFERENCE UNITS RANGE LAB UNIT1(LOINC ) Xmatch Unit 1 see below Result Comment: Compatible Performed By: #### RBCPS #### [facility] [address] [place] [address] HISTORY PHYSICAL Observed: 03/24/2018 Status: COMPLETED Source: [place] 12:59 PM CLINIC OTHER CAMPUS REPOSITORY HNO ID: [id number] Author: Renetta Mcallister MD Service: Critical Care Author Type: Resident Type: HANDP Filed: 03/24/2018 6:17 PM Note Text: Attestation signed by David Cerrato at 03/24/2018 7:11 PM [facility] STAFF PHYSICIAN NOTE OF PERSONAL INVOLVEMENT IN CARE I have reviewed the history and physical examination obtained and documented by the resident and I personally participated in the quintana components. I have discussed the case and management of the patient's care. The following comments revise or confirm relevant quintana components of the note. 52/M with PMHx of DM and ANDREW (on CPAP) developed cough with sputum and left chest pain about 2-3 weeks ago. He was treated with shots (2 in each hip) in his PCPs office and then antibiotics (small blue pills twice a day for about 10 days). His symptoms got better but over the past week has developed worsening dyspnea and left chest pain. He had a near syncopal event today with incontinence (bladder and bowel) on going to the bathroom so presented to the ER. Investigation in the ER showed severe anemia (Hb 4.5, normocytic), CT chest showed small to mod left loculated pleural effusion, left basilar atelectasis vs consolidation and LLL PE. He has been having some nausea and vomiting over the past few days without hematemesis or coffee ground emesis. Stool has been dark brown without obvious blood. No fever or chills. Was also found to be in Afib and was started on amiodarone. Currently in NSR. 10% on 2L [place] Ple[place], laying comfortably in bed Decreased breath sounds in b/l bases, chest pain left on deep breathing but without chest wall tenderness Regular rate and rhythm Obese, soft, nt/nd No c/c/e IMPRESSION: ?Acute hypoxic respiratory failure ?Left loculated small to moderate pleural effusion with adjacent atelectasis/consolidation ?Recently treated for pneumonia x 10 days ?LLL PE ?Severe acute normocytic anemia: no obvious blood loss (hemolytic vs hemorrhagic) ?Paroxysmal Afib ?ANDREW on CPAP ?DM ?obesity PLAN: ?Blood transfusion, keep Hb>7 ?Check Haptoglobin, bilirubin ?Normal platelets and INR ?CT abdomen to r/o RP bleed ?Observe without antibiotics ?If bleeding seen, will need IVC filter ?If workup for hemolysis/bleeding negative will order GI consult for anemia workup ?Check LE DVT ?Will review images after uploading. If effusion significant may need chest tube ?Repeat labs ?Monitor Hb/BP ?Peripheral IVs, place central line if needed ?Wean oxygen ?SCDs ?ICU monitoring Patient/Family Updated: yes This patient has a high probability of sudden, clinically significant deterioration, which requires the highest level of physician preparedness to intervene urgently. I managed/supervised life or organ supporting interventions that required frequent physician assessment. I devoted my full attention to the direct care of this patient for the amount of time indicated below. Time I spent with family or surrogate(s) is included only if the patient was incapable of providing the necessary information or participating in medical decision making. Time devoted to teaching and to any procedures I billed separately is not included. Critical Care Documentation: The patient has the following organ/system impairment(s): severe anemia, PE, left complicated pleural effusion Time spent providing critical care services: 30 minutes. SIGNATURE: David Cerrato MD [facility] P[facility]ER:[phone] DATE of SERVICE: March 24, 2018 TIME of SERVICE: 2:27 PM CRITICAL CARE CONSULT NOTE SERVICE DATE: 03/24/2018 SERVICE TIME: 12:59 PM REASON FOR CONSULT: Anemia, PE, A-fib RVR REQUESTING PHYSICIAN: [facility] ADMITTING PROVIDER: Shikha Jones SERVICE DATE: 03/24/2018 SERVICE TIME: 12:59 PM Admission Date: 03/24/2018 AGE: [age] year old LOS: 0 days Subjective 52 y/o M direct admit from [facility] for anemia, A-fib RVR, and LLL PE. Patient had LLL PNA 2 wks ago treated as outpatient with 7 days abx. Eads better then 6 days ago became increasingly SOB. PCP did outpt stress test which was normal and ECHO which showed LVEF=70%. Went to [facility] ED today and found to have Hgb 4.4 (last check on 03/03 was 13.5). Also a-fib RVR, no h/o arrhythmias started on amiodarone. CTPE showed loculated pleural effusion L suspicious for empyema given recent pna as well as LLL PEs. No anticoagulation given suspected GI bleed. Patient reports he maybe had loose black stools with the pna, but no gross blood in stools, that resolved, normal BMs now. Small blood streaked sputum also with the pna which has resolved. Endorses lightheadedness with standing. Objective PROBLEMS: There is no problem list on file for this patient. No past medical history on file. No past surgical history on file. Social History Marital status: Spouse name: Years of education: Number of children: Social History Main Topics Smokeless tobacco: Current User Types: Snuff Comment: 1 can per day Alcohol use: Yes Comment: weekends Drug use: No VITAL SIGNS (last 24hrs min/max): Temp Av.6 ?C (97.9 ?F) Min: 36.6 ?C (97.9 ?F) Max: 36.6 ?C (97.9 ?F) No Data Recorded No Data Recorded Cuff No Data Recorded Vital signs reviewed. Temp 97.9 Ht 5' 8 (1.73m) Wt 264 lb 12.4 oz (120.1kg) BMI 40.27 kg/(m2). Temp (24hrs), Av.6 ?C (97.9 ?F), Min:36.6 ?C (97.9 ?F), Max:36.6 ?C (97.9 ?F) NET FLUID BALANCE No intake or output data in the 24 hours ending 03/24/18 1259 MEDICATIONS No current facility-administered medications for this encounter. Lines, Drains, and Airways No matching active lines, drains, or airways PHYSICAL EXAM PERFORMED: BP 106/53 Pulse 93 Temp 37.9 ?C (100.2 ?F) Resp 18 Ht 172.7 cm (5' 8) Wt 120.1 kg (264 lb 12.4 oz) SpO2 97% BMI 40.26 kg/m? General: Resting comfortably in bed, NAD HEENT: PERRL, mucous membranes dry and pale Neck: Supple, no JVD appreciated, ROM normal Cardiovascular: RRR, no m/g/r Respiratory: Clear to auscultation bilaterally, diminished LL base, normal respiratory effort, speaking full sentences, 97% RA Abdomen: Soft, Nontender and Positive bowel sounds Extremities: Edema- no LE edema, no calf ttp or palpable cords Neurologic: Awake, oriented x3, Follows commands and Moving all extremities Skin: warm, dry, no petechiae or purpura Respiratory/Nursing Documentation: O2 Therapy: Nasal Cannula (03/24/18 1250) HEMODYNAMIC DATA: Reviewed DATA: Diagnostic tests reviewed for today's visit, films/specimens were personally reviewed by me: Most recent labs and imaging results. Outside chart from [place] reviewed. LABS: ABG: Invalid input(s): [id number] Assessment/Plan IMPRESSION: Critical Care Documentation: The patient has the following organ/system impairment(s): Acute blood loss and Pulmonary embolism 1. Acute anemia (suspected blood loss, hemolysis less likely) 2. Loculated L pleural effusion (empyema from pna) 3. A-fib RVR - now converted on amiodarone gtt 4. LLL PE 5. ?GI bleed 6. DM2 7. ANDREW CRITICAL CARE PLAN: -Repeat Hgb now -2PRBCs -Hgb q6h -CTAP to eval for bleeding -CXR and CTPE from OSH shows atalectasis with loculated effusion, defer abx at this time -LDH, haptoglobin, cold agglutinins to eval for hemolytic cause -Continue amiodarone, wean as tolerated - converted now, consider c/s cardiology -No anticoagulation for PE given ?GI bleed, after etiology determined, march c/s vascular for IVCF -b/l US DVT LEs -NPO, SSI Discussed with staff/patient/family SIGNATURE: Renetta Mcallister MD PATIENT NAME: Joel Matson DATE: March 24, 2018 TIME: 12:59 PM LACTIC ACID Collected: 03/24/2018 Status: F Source: [place] 9:00 AM [facility] [place], [place] REPOSITORY Order Comment: Yes/No query for Sepsis Lactate Rule Y TYPE CODE TESTS RESULT OUT OF RANGE REFERENCE UNITS LAB L503.6005 0.4-2.0 mmol/L Normal LACTIC ACID 1.0 Performed By: #### L503.6005 #### [facility] [address] [place], [place], [address] Observed: 03/24/2018 Status: F Source: [place] CULTURE, BLOOD (WB) 9:00 AM [facility] [place], [place] REPOSITORY BC No growth in 5 days. Performed By: #### M200.1000 #### [facility] [address], [address] TYPE AND SCREEN Collected: 03/24/2018 Status: F Source: [place] 8:58 AM [facility] [place], [place] REPOSITORY Order Comment: CMV NEG? N Number of units to transfuse: 2 Is pt's Hgb is </= to 7.0 mg/dl or Hct </= 21%? Y Reason for Ordering Blood: Chronic Are the blood/blood products to be transfused? Y Is the patient having/had surgery? N Give When? When Ready Irradiated? N Leukodepleted? Y TYPE CODE TESTS RESULT OUT OF RANGE REFERENCE UNITS LAB B10.0800 B Normal BLOOD TYPE GEL POSITIVE LAB B100.4000 Normal Antibody NEGATIVE Screen Performed By: #### B101.7450 #### [facility] [address] [place], [address] RC Collected: 03/24/2018 Status: F Source: [place] 8:58 AM [facility] [place] [place] REPOSITORY TYPE CODE TESTS RESULT OUT OF REFERENCE UNITS RANGE LAB U100.0000 [id number] TRANSFUSED PRODUCT: T AND S with Crossmatch, Red Cells COUNT: 1 Performed By: #### U100.0000 #### [facility] - refer to report for specific site Observed: 03/24/2018 Status: F Source: [place] CULTURE, BLOOD (WB) 8:58 AM [facility] [place] [place] REPOSITORY BC No growth in 5 days. Performed By: #### M200.1000 #### [facility] [address], [address] CTA CHEST W/WO Observed: 03/24/2018 Status: F Source: [place] CONTRAST 8:55 AM [facility] [place] [place] REPOSITORY [facility] Imaging Services [address] [address] CTA Chest W/WO Contrast MR#: [id number] Acct: [id number] Name: JOEL MATSON Rep #: [id number] : 1965 M 52 From: Travis Borges MD PCP: Herminio GARC[facility] Status: REG ER Study: CTA Chest W/WO Contrast Date of Exam: 03/24/18 Exam# [id number] Ordering Dr: Fred Brooks MD STUDY: CTA CHEST REASON FOR EXAM: Male, 52 years old. Shortness of breath. RADIATION DOSAGE (If Supplied By Facility): CTDIvol = ( 16.72 ) mGy, DLP = ( 701.43 ) mGycm TECHNIQUE: The examination was performed with the intravenous administration of 100 ml of Isovue 370 contrast material. Post-processing of the angiographic images was performed, with multiplanar reformation and 3D reconstruction. Individualized dose optimization techniques were used for this CT. COMPARISON: Comparison is made with prior chest radiograph done earlier today. FINDINGS: Several nonocclusive intraluminal filling defects are seen in branches of the left lower lobe pulmonary artery. Normal thoracic aorta and visualized great vessels. There is no demonstrated aortic dissection. Normal heart and pericardium. Normal mediastinum. Normal hilar regions. Normal visualized trachea and bronchi. The lungs are well expanded. Small to moderate left pleural effusion with findings suggestive of a partial loculation along its lateral aspect. Infiltration and/or atelectasis in the left lower lobe. The right lung is clear. Normal chest wall structures. Normal osseous structures. Normal visualized upper abdomen. CT/CTA Chest W/WO Contrast IMPRESSION: Small to moderate sized left pleural effusion with areas of loculation.. Left lower lobe infiltrate and/or atelectasis. Intraluminal filling defects in branches of the left lower lobe pulmonary artery. Electronically Signed: Travis Borges MD at 9:57 EDT Tel [phone], Service support , CC: Fred Brooks MD; Ravindra Durham MD State Pilot: Signed CHEST 1 VIEW Observed: 03/24/2018 Status: F Source: [place] (PORTABLE) 8:21 AM [facility] [place] [place] REPOSITORY [facility] Imaging Services [address] [place] [address] Chest 1 View (Portable) MR#: [id number] Acct: [id number] Name: JOEL MATSON Rep #: [id number] : 1965 M 52 From: Travis Borges MD PCP: Herminio GARCIA,Ravindra Russo Status: REG ER Study: Chest 1 View (Portable) Date of Exam: 03/24/18 Exam# [id number] Ordering Dr: Fred Brooks MD STUDY: X-RAY CHEST REASON FOR EXAM: Male, 52 years old. Chest pain. TECHNIQUE: Single AP portable view of the chest. COMPARISON: Comparison is made with prior study dated March 10, 2018. FINDINGS: EKG electrodes are seen. Small to moderate left pleural effusion with underlying infiltration and/or atelectasis. This has progressed as compared to prior study. The right lung is clear. Normal size heart. Normal mediastinum and lucy. Normal visualized pulmonary arteries. Normal visualized aortic arch and descending thoracic aorta. Normal visualized thoracic spine. Normal visualized ribs, clavicles, and shoulders. There is no demonstrated abnormality of the visualized soft tissue structures of the upper abdomen. RAD/Chest 1 View (Portable) IMPRESSION: Increased left pleural effusion with underlying infiltration and/or atelectasis as compared to prior study. The right lung is clear. Electronically Signed: Travis Borges MD at 9:07 EDT Tel [phone], Service support , CC: Fred Brooks MD; Ravindra Durham MD State Pilot: Signed CBC W/DIFF, AUTOMATED Collected: 03/24/2018 Status: C Source: [place] 8:01 AM [facility] [place] [place] REPOSITORY TYPE CODE TESTS RESULT OUT OF RANGE REFERENCE UNITS LAB L100.1000 4.4-11.0 K/mm3 Normal WBC 7.9 LAB L100.1200 4.6-6.2 M/mm3 Low RBC 1.46 LAB L100.1300 13.0-16.5 g/dl Low alert HGB 4.3 Result Comment: CRITICAL VALUE VERIFIED. CALLED TO JIMMY WILEY 03/24/18 0842 Alex Cervantes. RESULTS READ BACK BY SAME. LAB L100.1400 40-54 % Low HCT 14.1 LAB L100.1500 80-94 fL High MCV 96.6 LAB L100.1600 27.0-32.0 pg Normal MCH 29.5 LAB L100.1700 32-36 g/gl Low MCHC 30.5 LAB L100.1810 11.6-14.6 % High RDW CV 18.2 LAB L100.1820 35.1-43.9 fl High RDW SD 48.7 LAB L100.1900 150-450 K/mm3 Normal PLT 191 LAB L100.2000 6.2-12.0 fl Normal MPV 8.9 LAB L100.3100 MANUAL DIFF Normal CELLS COUNTED 100 LAB L100.3200 47-70 % 75 High SEGS LAB L100.3400 0-1 % 3 High META LAB L100.3800 19-41 % Low 17 LYMPH LAB L100.3900 0-10 % 5 Normal MONOCYTE LAB L100.5500 ADEQ Normal PLT EST ADEQUATE LAB L100.7000 NORM C AND NORMAL C Normal RED CELL MORPH NORM C+C LAB L100.2620 2.0-7.7 X10 3/uL Normal Absolute Neut 5.9 LAB L100.2720 0.83-4.51 X10 3/ul Normal Absolute Lymph 1.34 LAB L100.9900 Normal PATH REV Reviewed Result Comment: Severe Macrocytic anemia. Neutrophilic left shift. Clinical correlation necessary. Kit Rodriguez M.D. 03/27/18 Pathologist comment added AMENDED REPORT 03/27/18 1158 PATH REV previously reported as: March sabrina Performed By: #### L100.0100 #### [facility] [address] [place], [address] BASIC METABOLIC Collected: 03/24/2018 Status: F Source: [place] PROFILE (BMP) 8:01 AM [facility] [place] [place] REPOSITORY TYPE CODE TESTS RESULT OUT OF RANGE REFERENCE UNITS LAB L501.0100 74-106 mg/dL High GLU 340 Result Comment: Glucose result greater than or equal to 200 mg/dL suggests DIABETES MELLITUS per A.D.A. criteria. Please note revised GLUCOSE reference range effective 2017. LAB L501.1000 7-18 mg/dL Normal BUN 14 LAB L501.1100 0.70-1.30 mg/dL Low CREAT,SERUM 0.62 Result Comment: The validity of the calculated GFR AND GFRAA in patients over 70 years has not been determined. Clinical correlation is essential. LAB L501.1110 >60 mL/min Normal EST GFR 146 Result Comment: Non- GFR Calc LAB L501.1115 >60 mL/min Normal EST GFR - AA 176 Result Comment: GFR Calc LAB L501.1255 ml/min Normal Estimated CRCL 136.37 LAB L501.1300 10-20 RATIO High BUN/CRE 22.6 LAB L501.2200 8.5-10 mg/dL Low .1 CA 7.7 LAB L501.5300 136-14 mmol/L 5 NA Normal 137 LAB L501.5600 3.5-5. mmol/L 1 K Normal 3.9 LAB L501.5900 98-107 mmol/L CL Normal 103 LAB L501.6100 21.0-3 mmol/L 2.0 CO2 Normal 26.0 LAB L501.6200 5-15 GAP Normal 8 Performed By: #### L500.2500, L501.4010 #### [facility] [address] [place], [place], [id number] TROPONIN-I Collected: 03/24/2018 Status: F Source: [place] 8:01 AM [facility] [place] [place] REPOSITORY TYPE CODE TESTS RESULT OUT OF RANGE REFERENCE UNITS LAB L501.4010 <0.045 ng/mL Normal < 0.015 TROPONIN-I Result Comment: TROPONIN-I EXPECTED VALUES <0.045 Negative 0.045 - 0.590 Consistent with Cardiac Damage > OR = 0.600 Critical Value Not every elevated troponin is indicative of SD. These values should be used with clinical judgement in examining the patient's clinical picture for diagnosis. To establish a diagnosis of SD versus myocardial injury, there must be a demonstrated rise and/or fall in the troponin values, in addition to ischemic symptoms, EKG changes, new regional wall motion abnormality, and/or angiographical evidence. PLEASE NOTE: REFERENCE RANGES EDITED 18 Performed By: #### L500.2500, L501.4010 #### [facility] [address], [address] D-DIMER QUANTITATIVE Collected: 03/24/2018 Status: F Source: [place] (DVT/PE) 8:01 AM [facility] [place] [place] REPOSITORY TYPE CODE TESTS RESULT OUT OF RANGE REFERENCE UNITS LAB L300.8000 0.27-0.49 FEU/ug/m High alert D-DIMER 1.83 QUANT Result Comment: CRITICAL VALUE VERIFIED. CALLED TO [facility] 03/24/18 0851 Jessica Andersen. RESULTS READ BACK BY ARY . D-Dimer ELEVATED (>0.49): Additional studies and clinical assessments are indicated to conclude diagnosis of: Deep Vein Thrombosis (DVT) or Pulmonary Embolism (PE) Performed By: #### L300.8000 #### [facility] [address], [address] PROTHROMBIN TIME W/INR Collected: 03/24/2018 Status: F Source: [place] 8:01 AM [facility] [place] [place] REPOSITORY TYPE CODE TESTS RESULT OUT OF RANGE REFERENCE UNITS LAB L300.4150 11.7-14.9 SECONDS Normal PROTIME 14.3 LAB L300.4200 Normal INR 1.1 Performed By: #### L300.3900, L300.4310 #### [facility] [address] [place], [address] PARTIAL THROMBOPLAST Collected: 03/24/2018 Status: F Source: [place] TIME 8:01 AM [facility] [place] [place] REPOSITORY TYPE CODE TESTS RESULT OUT OF RANGE REFERENCE UNITS LAB L300.4310 24.1-36.2 Seconds Normal PTT 25.8 Performed By: #### L300.3900, L300.4310 #### [facility] [address], [address] HOSP Observed: 03/24/2018 Status: COMPLETED Source: [place] 12:00 AM CLINIC OTHER CAMPUS REPOSITORY Patient:Joel Matson MRN: <[id number]> Height:5' 8(1.727 m) Weight:281 lb 12 oz (127.8 kg) Outpatient Medications as of 03/27/18: empagliflozin (JARDIANCE) 25 mg tablet insulin degludec-liraglutide (XULTOPHY) 100 unit-3.6 mg/mL testosterone (ANDROGEL) 20.25 mg/1.25 gram (1.62 %) glpm metFORMIN (GLUCOPHAGE) 1,000 mg tablet linagliptin (TRADJENTA) 5 mg tab rosuvastatin (CRESTOR) 40 mg tablet losartan (COZAAR) 100 mg tablet diclofenac, EC, (VOLTAREN) 50 mg EC tablet baclofen (LIORESAL) 10 mg tablet gabapentin (NEURONTIN) 400 mg capsule escitalopram oxalate (LEXAPRO) 10 mg tablet albuterol HFA (VENTOLIN HFA) 90 mcg/actuation inhaler Admission/Clinic Administered Medications as of 03/27/18: pantoprazole 40 mg injection (PROTONIX) NaCl 0.45% iv infusion cefTRIAXone iv piggyback 2 g in dextrose (iso-osmotic) 50 mL (ROCEPHIN) doxycycline 100 mg in D5W 250 mL (VIBRAMYCIN) potassium chloride 80-120 mEq oral liquid potassium chloride iv piggyback 20 mEq in sterile water 100 mL magnesium sulfate in water 2 g in sterile water 50 ml sodium phosphate 45 mmol in NaCl 0.9% 250 mL calcium gluconate 4 g in NaCl 0.9% 250 mL dextrose 40 % 15 g glucagon 1 mg injection (GLUCAGEN) dextrose 50% in water 25 mL syringe insulin regular human injection (short acting) (NovoLIN R,HumuLIN R) ondansetron (PF) 4 mg injection (ZOFRAN) prochlorperazine 5 mg injection (COMPAZINE) Problem List: Anemia [D64.9] Atrial fibrillation with RVR (HCC) [I48.91] Pulmonary embolism (HCC) [I26.99] Nicotine use disorder, F17.2 [F17.200] Obesity, Class III, BMI >= 40 [E66.01] Malnutrition of moderate degree (HCC) [E44.0] GI bleed [K92.2] Diabetes (HCC) [E11.9] Obstructive sleep apnea [G47.33] Allergies: No Known Allergies Date Verified:03/27/18 Lab Values Lab Value Units Date High Low POTA* 3.6 mEq/L 03/27/2018 5.1 3.5 GOPI* 23.4 % 03/27/2018 51.0 40.1 Progress Notes (): Renetta Mcallister MD, 03/24/2018 6:17 PM Attested Attestation signed by David Cerrato at 03/24/2018 7:11 PM [facility] NOTE OF PERSONAL INVOLVEMENT IN CARE I have reviewed the history and physical examination obtained and documented by the resident and I personally participated in the quintana components. I have discussed the case and management of the patient's care. The following comments revise or confirm relevant quintana components of the note. 52/M with PMHx of DM and ANDREW (on CPAP) developed cough with sputum and left chest pain about 2-3 weeks ago. He was treated with shots (2 in each hip) in his PCPs office and then antibiotics (small blue pills twice a day for about 10 days). His symptoms got better but over the past week has developed worsening dyspnea and left chest pain. He had a near syncopal event today with incontinence (bladder and bowel) on going to the bathroom so presented to the ER. Investigation in the ER showed severe anemia (Hb 4.5, normocytic), CT chest showed small to mod left loculated pleural effusion, left basilar atelectasis vs consolidation and LLL PE. He has been having some nausea and vomiting over the past few days without hematemesis or coffee ground emesis. Stool has been dark brown without obvious blood. No fever or chills. Was also found to be in Afib and was started on amiodarone. Currently in NSR. 10% on 2L [place] Ple[place], laying comfortably in bed Decreased breath sounds in b/l bases, chest pain left on deep breathing but without chest wall tenderness Regular rate and rhythm Obese, soft, nt/nd No c/c/e IMPRESSION: ?Acute hypoxic respiratory failure ?Left loculated small to moderate pleural effusion with adjacent atelectasis/consolidation ?Recently treated for pneumonia x 10 days ?LLL PE ?Severe acute normocytic anemia: no obvious blood loss (hemolytic vs hemorrhagic) ?Paroxysmal Afib ?ANDREW on CPAP ?DM ?obesity PLAN: ?Blood transfusion, keep Hb>7 ?Check Haptoglobin, bilirubin ?Normal platelets and INR ?CT abdomen to r/o RP bleed ?Observe without antibiotics ?If bleeding seen, will need IVC filter ?If workup for hemolysis/bleeding negative will order GI consult for anemia workup ?Check LE DVT ?Will review images after uploading. If effusion significant may need chest tube ?Repeat labs ?Monitor Hb/BP ?Peripheral IVs, place central line if needed ?Wean oxygen ?SCDs ?ICU monitoring Patient/Family Updated: yes This patient has a high probability of sudden, clinically significant deterioration, which requires the highest level of physician preparedness to intervene urgently. I managed/supervised life or organ supporting interventions that required frequent physician assessment. I devoted my full attention to the direct care of this patient for the amount of time indicated below. Time I spent with family or surrogate(s) is included only if the patient was incapable of providing the necessary information or participating in medical decision making. Time devoted to teaching and to any procedures I billed separately is not included. Critical Care Documentation: The patient has the following organ/system impairment(s): severe anemia, PE, left complicated pleural effusion Time spent providing critical care services: 30 minutes. SIGNATURE: David Cerrato MD [facility] P[facility]ER:[phone] DATE of SERVICE: March 24, 2018 TIME of SERVICE: 2:27 PM CRITICAL CARE CONSULT NOTE SERVICE DATE: 03/24/2018 SERVICE TIME: 12:59 PM REASON FOR CONSULT: Anemia, PE, A-fib RVR REQUESTING PHYSICIAN: [facility] ADMITTING PROVIDER: Shikha Jones SERVICE DATE: 03/24/2018 SERVICE TIME: 12:59 PM Admission Date: 03/24/2018 AGE: [age] year old LOS: 0 days Subjective 52 y/o M direct admit from [facility] for anemia, A-fib RVR, and LLL PE. Patient had LLL PNA 2 wks ago treated as outpatient with 7 days abx. Eads better then 6 days ago became increasingly SOB. PCP did outpt stress test which was normal and ECHO which showed LVEF=70%. Went to [place] ED today and found to have Hgb 4.4 (last check on 03/03 was 13.5). Also a-fib RVR, no h/o arrhythmias started on amiodarone. CTPE showed loculated pleural effusion L suspicious for empyema given recent pna as well as LLL PEs. No anticoagulation given suspected GI bleed. Patient reports he maybe had loose black stools with the pna, but no gross blood in stools, that resolved, normal BMs now. Small blood streaked sputum also with the pna which has resolved. Endorses lightheadedness with standing. Objective PROBLEMS: There is no problem list on file for this patient. No past medical history on file. No past surgical history on file. Social History Marital status: Spouse name: Years of education: Number of children: Social History Main Topics Smokeless tobacco: Current User Types: Snuff Comment: 1 can per day Alcohol use: Yes Comment: weekends Drug use: No VITAL SIGNS (last 24hrs min/max): Temp Av.6 ?C (97.9 ?F) Min: 36.6 ?C (97.9 ?F) Max: 36.6 ?C (97.9 ?F) No Data Recorded No Data Recorded Cuff No Data Recorded Vital signs reviewed. Temp 97.9 Ht 5' 8 (1.73m) Wt 264 lb 12.4 oz (120.1kg) BMI 40.27 kg/(m2). Temp (24hrs), Av.6 ?C (97.9 ?F), Min:36.6 ?C (97.9 ?F), Max:36.6 ?C (97.9 ?F) NET FLUID BALANCE No intake or output data in the 24 hours ending 03/24/18 1259 MEDICATIONS No current facility-administered medications for this encounter. Lines, Drains, and Airways No matching active lines, drains, or airways PHYSICAL EXAM PERFORMED: BP 106/53 Pulse 93 Temp 37.9 ?C (100.2 ?F) Resp 18 Ht 172.7 cm (5' 8) Wt 120.1 kg (264 lb 12.4 oz) SpO2 97% BMI 40.26 kg/m? General: Resting comfortably in bed, NAD HEENT: PERRL, mucous membranes dry and pale Neck: Supple, no JVD appreciated, ROM normal Cardiovascular: RRR, no m/g/r Respiratory: Clear to auscultation bilaterally, diminished LL base, normal respiratory effort, speaking full sentences, 97% RA Abdomen: Soft, Nontender and Positive bowel sounds Extremities: Edema- no LE edema, no calf ttp or palpable cords Neurologic: Awake, oriented x3, Follows commands and Moving all extremities Skin: warm, dry, no petechiae or purpura Respiratory/Nursing Documentation: O2 Therapy: Nasal Cannula (03/24/18 1250) HEMODYNAMIC DATA: Reviewed DATA: Diagnostic tests reviewed for today's visit, films/specimens were personally reviewed by me: Most recent labs and imaging results. Outside chart from [place] reviewed. LABS: ABG: Invalid input(s): [id number] Assessment/Plan IMPRESSION: Critical Care Documentation: The patient has the following organ/system impairment(s): Acute blood loss and Pulmonary embolism 1. Acute anemia (suspected blood loss, hemolysis less likely) 2. Loculated L pleural effusion (empyema from pna) 3. A-fib RVR - now converted on amiodarone gtt 4. LLL PE 5. ?GI bleed 6. DM2 7. ANDREW CRITICAL CARE PLAN: -Repeat Hgb now -2PRBCs -Hgb q6h -CTAP to eval for bleeding -CXR and CTPE from OSH shows atalectasis with loculated effusion, defer abx at this time -LDH, haptoglobin, cold agglutinins to eval for hemolytic cause -Continue amiodarone, wean as tolerated - converted now, consider c/s cardiology -No anticoagulation for PE given ?GI bleed, after etiology determined, may c/s vascular for IVCF -b/l US DVT LEs -NPO, SSI Discussed with staff/patient/family SIGNATURE: Renetta Mcallister MD PATIENT NAME: Joel Matson DATE: March 24, 2018 TIME: 12:59 PM Previous Version David Ruiz MD 03/27/2018 12:18 PM Signed [facility] - Operative Report SURGEON: David Ruiz MD PATIENT NAME: JOEL MATSON CSN: [id number] DATE OF SURGERY: 03/25/2018 DATE OF : 1965 SEX/AGE: M/52 PATIENT TYPE: I HOSP SVC: PULM LOCATION: [id number] DATE OF SURGERY: 03/25/2018 SURGEON: David Ruiz MD PROCEDURE: Esophagogastroduodenoscopy with biopsy. INDICATION: This is a 52-year-old male, admitted to the intensive care unit with severe anemia and some blood in his stool. GI consult was obtained for further evaluation for GI bleeding source. POSTPROCEDURE DIAGNOSIS: 1. 3 small clean based antral ulcer was seen. Biopsies were obtained from the Antrum to rule out H. pylori. 2. No blood or stigmata of bleeding seen on this examination. PROCEDURE IN DETAIL: Informed consent was obtained after explaining the patient indications, benefits, alternative tests, and risks including but not limited to perforation, bleeding, phlebitis, and medication reactions. MEDICATIONS: Versed 3 mg IV, fentanyl 50 mcg IV. He also received Cetacaine spray to hypopharynx. PROCEDURE IN DETAIL: The Olympus video upper endoscope was advanced under direct visualization to the second portion of duodenum. Duodenal bulb and second portion appeared grossly normal. In the gastric antrum, there were 3 small clean based ulcers. These were on the order of about 3 mm in size. There was no blood or stigmata of bleeding seen throughout this examination. Biopsies were obtained from the gastric antrum to rule out H. pylori. Retroflex views in the stomach were unremarkable. The esophagus appeared normal. The Z-line at margin of gastric folds and diaphragmatic hiatus at 44 cm incisors. The patient tolerated the procedure without immediate complication. RECOMMENDATIONS: 1. Daily oral PPI. 2. Follow serial H and Hs and transfuse to keep hemoglobin greater than 7. 3. If the patient exhibits signs of active bleeding such as bright red blood per rectum, would proceed with stat bleeding scan. 4. Otherwise proceed with colonoscopy on Tuesday to further evaluate source for GI blood loss. David Ruiz MD Gastroenterology LEONOR:helena /[id number] cc:MD David Turner MD Previous Version Earl Mckeon MD 03/25/2018 9:08 AM Attested Attestation signed by Barbara Castillo at 03/25/2018 9:23 AM I saw and evaluated the patient. Discussed with the resident and agree with resident's findings and plan as documented in the resident's note. D/W pt need for filter. Pt with PE, unable to anticoagulate secondary to GI bleeding while on heparin. In addition, pt may need thoracic intervention. Request made for IVC filter. R/B/A explained including bleeding, infection, hematoma, caval thrombosis, migration and perforation. Also discussed the need to have this removed within a year. The pt would like to discuss this with his family. As the pt had an US of his LE that were negative, the pt has low risk of an event happening while he considers his options. Will check back with pt later. Barbara Castillo MD Vascular Consult Note SERVICE DATE: 03/25/2018 Subjective SUBJECTIVE: Pt presented with PE from unknown Source. In addition pt is having gi bleeding from unknown source - initial Hb 4.5 in ED. Patient is currently unable to be anticoagulated. Primary team requesting filter for possible lower ext source. Denies N/V/CP/SOB Diet: DIET NPO Objective OBJECTIVE: Vitals: BP 95/55 Pulse 74 Temp (Src) 96.6 (Axillary) Resp 13 Ht 5' 8 (1.73m) Wt 274 lb 4 oz (124.4kg) SpO2 96% BMI 41.71 kg/(m2). Temp (24hrs), Av.1 ?C (98.8 ?F), Min:35.8 ?C (96.4 ?F), Max:38.1 ?C (100.6 ?F) O2 Therapy: Nasal Cannula IANDO: Date 03/24/18699 - 03/25/1865803/25/18699 - 03/26/18 0659 Shift 3198-2472 8163-4528 6138-9460 24 Hour Total 8718-6977 3602-2763 1925-7964 24 Hour Total I N T A K E IV 1200.9 958.9 2159.8 228.7 228.7 NS 0.9% 610 637 8714 196 196 Amiodarone 416.9 134.9 551.8 32.7 32.7 Blood Products 937 937 PRBC Intake (mL) 934 934 Packed Red Blood Cells Number of Units 3 3 Shift Total 2137.9 958.9 3096.8 228.7 228.7 O U T P U T Urine 400 500 0 900 Void (ml) 400 500 0 900 Urine Incontinence/Not Saved 1 x 1 x 1 x 1 x # of BMs Stool Incontinence 1 x 1 x Number of BMs 0 x 1 x 1 x Shift Total 400 500 0 900 Weight (kg) 120.1 120.1 124.4 124.4 124.4 124.4 124.4 124.4 MEDICATIONS Current Facility-Administered Medications: potassium chloride 80-120 mEq oral liquid 80-120 mEq ORAL/FEEDING TUBE PRN potassium chloride iv piggyback 20 mEq in sterile water 100 mL 20 mEq INTRAVENOUS PRN magnesium sulfate in water 2 g in sterile water 50 ml 2 g INTRAVENOUS PRN sodium phosphate 45 mmol in NaCl 0.9% 250 mL 45 mmol INTRAVENOUS PRN calcium gluconate 4 g in NaCl 0.9% 250 mL 4 g INTRAVENOUS PRN NaCl 0.9% iv infusion 100 mL/hr INTRAVENOUS CONTINUOUS dextrose 40 % 15 g 15 g ORAL PRN Or glucagon 1 mg injection (GLUCAGEN) 1 mg INTRAMUSCULAR PRN Or dextrose 50% in water 25 mL syringe 12.5 g INTRAVENOUS PRN insulin regular human injection (short acting) (NovoLIN R,HumuLIN R) SUBCUTANEOUS q 6 H ondansetron (PF) 4 mg injection (ZOFRAN) 4 mg INTRAVENOUS q 6 H PRN amiodarone 360 mg in D5W 200 mL (NEXTERONE) 1 mg/min INTRAVENOUS CONTINUOUS iv contrast (radiology procedure) INTRAVENOUS DIRECTED PRN prochlorperazine 5 mg injection (COMPAZINE) 5 mg INTRAVENOUS q 6 H PRN Labs: Recent Labs 03/25/18 0210 03/24/18 1955 03/24/18 1400 03/24/18 1345 NA 139 -- -- 137 K 3.5 -- -- 3.8 CHLOR 108* -- -- 105 CO2 26 -- -- 27 BUN 18 -- -- 15 CREAT 0.53* -- -- 0.52* GLUC 207* -- -- 310* ANION 9 -- -- 9 CA 7.1* -- -- 7.3* ALB -- -- 1.7* -- AST -- -- 19 -- ALT -- -- 18 -- ALKPHOS -- -- 66 -- TBILI -- -- 1.7* -- WBC 9.23* -- -- 8.91 HB 7.2* 6.3* -- 4.7* HCT 21.3* -- -- 15.3* PLT 116* -- -- 146 LACT -- -- -- 1.1 No results for input(s): BODSITE, CTYPE, PH, PCO2, PO2, BE, HCO3, CO2CT, O2HB, COHB, MHGB, TEMP, PHTC, PCO2T, PO2T, O2AD in the last 72 hours. Exam: GENERAL: Alert, no distress, cooperative SKIN: Skin color, texture, turgor normal. No rashes or lesions. LUNGS: Unlabored breathing on O2 Therapy: Nasal Cannula on Liters: 4 sating at SpO2: 96 % CARDIAC: rate and rhythm as above, ABDOMEN: Benign, Soft, non-tender, No masses, hepatosplenomegaly and No lymphadenopathy EXTREMITIES: ROM of all joint grossly normal: strength grossly normal bilaterally. No deformities noted. WOUND: not applicable ASSESSMENT AND PLAN: Assessment/Plan This is a 52 year old male Patient wants to discuss filter with family Will possibly place later today vs tomorrow Assessment and plan discussed with attending: Dr. Castillo SIGNATURE: Earl Mckeon MD PATIENT NAME: Joel Matson DATE: March 25, 2018 TIME: 9:05 AM Pager: [phone] Cordelia Luz, RN, RN 03/25/2018 9:[address] Tellez notifed in person hg 6.5. PRBC 1 unit ordered Monica Abel APRN.LEX 03/25/2018 10:15 AM Signed INITIAL CONSULT GASTROENTEROLOGY SERVICE DATE: 03/25/2018 SERVICE TIME: 10:03 AM Consulting Service: Critical Care Opinion/advice regarding: GI bleed Subjective HPI: This is a 52 year old male who presents with chest pain, cough and shortness of breath that has worsened over the last weeks. He also had a near syncopal event while using the bathroom on the day of presentation. His Hgb on presentation was 4.7 and he had two dark bloody stools since presentation. GI was consulted for evaluation of GI bleeding. No past medical history on file. No past surgical history on file. No family history on file. Social History Substance Use Topics - Smoking status: Not on file - Smokeless tobacco: Current User Types: Snuff Comment: 1 can per day - Alcohol use Yes Comment: weekends MEDICATIONS: Prior to Admission Medications: COMPOUNDED PRESCRIPTION testosterone cream for testic CA COMPOUNDED PRESCRIPTION glucophage dose not known Exenatide 10 mcg/0.04 mL SUBCUTANEOUS PnIj Take one(1) tablet two(2) times daily. COMPOUNDED PRESCRIPTION diabetic med, name/dose unknown COMPOUNDED PRESCRIPTION lexapro, dose unknown Current hospital medications: potassium chloride 80-120 mEq oral liquid 80-120 mEq ORAL/FEEDING TUBE PRN potassium chloride iv piggyback 20 mEq in sterile water 100 mL 20 mEq INTRAVENOUS PRN magnesium sulfate in water 2 g in sterile water 50 ml 2 g INTRAVENOUS PRN sodium phosphate 45 mmol in NaCl 0.9% 250 mL 45 mmol INTRAVENOUS PRN calcium gluconate 4 g in NaCl 0.9% 250 mL 4 g INTRAVENOUS PRN NaCl 0.9% iv infusion 100 mL/hr INTRAVENOUS CONTINUOUS dextrose 40 % 15 g 15 g ORAL PRN glucagon 1 mg injection (GLUCAGEN) 1 mg INTRAMUSCULAR PRN dextrose 50% in water 25 mL syringe 12.5 g INTRAVENOUS PRN insulin regular human injection (short acting) (NovoLIN R,HumuLIN R) SUBCUTANEOUS q 6 H ondansetron (PF) 4 mg injection (ZOFRAN) 4 mg INTRAVENOUS q 6 H PRN amiodarone 360 mg in D5W 200 mL (NEXTERONE) 1 mg/min INTRAVENOUS CONTINUOUS iv contrast (radiology procedure) INTRAVENOUS DIRECTED PRN prochlorperazine 5 mg injection (COMPAZINE) 5 mg INTRAVENOUS q 6 H PRN ALLERGIES No Known Allergies GI SPECIFIC REVIEW OF SYSTEMS: Positive for nausea, vomiting, bright red blood per rectum Negative for dysphagia, heartburn, acid reflux, hematemesis, melena Negative for decreased appetite, decreased oral intake Negative for change in weight No alteration in bowel habits OTHER ROS: Negative for fever, night sweats, sleep problems, mood or depression. PAIN ASSESSMENT: Negative for pain, history of chronic pain, or current treatment for a chronic pain condition. GENERAL: No weight loss, malaise or fevers HEENT: Negative for frequent or significant headaches, No changes in hearing or vision, no nose bleeds or other nasal problems NECK: Negative for lumps, goiter, pain and significant neck swelling RESPIRATORY: Cough; moist, Shortness of breath CARDIOVASCULAR: Chest pain : No history of dysuria, frequency or incontinence MUSCULOSKELETAL: Negative for joint pain or swelling, back pain or muscle pain SKIN: Negative for lesions, rash, and itching PSYCH: Negative for sleep disturbance, mood disorder and recent psychosocial stressors HEMATOLOGY/LYMPHOLOGY: Negative for prolonged bleeding, bruising easily or swollen nodes ENDOCRINE: Negative for cold or heat intolerance, polyuria, polydipsia and goiter NEURO: No history of headaches, syncope, paralysis, seizures or tremors Objective PHYSICAL EXAM: BP 94/50 Pulse 78 Temp 36 ?C (96.8 ?F) Resp 14 Ht 172.7 cm (5' 8) Wt 124.4 kg (274 lb 4 oz) SpO2 99% BMI 41.70 kg/m? GENERAL- AAO x 3, no distress HEENT: Moist mucus membranes. Tongue pink and midline LUNGS: Clear to auscultation bilaterally CARDIAC: S1, S2 heard. Heart rate regular ABDOMEN: Soft, non-tender without guarding or rigidity, normal bowel sounds EXTREMITIES: No pedal edema DATA: Diagnostic Tests Reviewed for Today's Visit: Most recent labs and imaging results. CBC, Coags, BMP, Mg, Phos Recent Labs 03/25/18 0800 03/25/18 0210 03/24/18 1955 03/24/18 1600 03/24/18 1345 WBC -- 9.23* -- -- 8.91 HB 6.5* 7.2* 6.3* -- 4.7* HCT -- 21.3* -- -- 15.3* PLT -- 116* -- -- 146 APTT -- -- -- 19.1* -- NA -- 139 -- -- 137 K -- 3.5 -- -- 3.8 CHLOR -- 108* -- -- 105 CO2 -- 26 -- -- 27 BUN -- 18 -- -- 15 CREAT -- 0.53* -- -- 0.52* GLUC -- 207* -- -- 310* CA -- 7.1* -- -- 7.3* CSF AND Dilantin Liver Function, Amylase, AND Lipase Recent Labs 03/24/18 1400 03/24/18 1345 TPROT 4.8* -- ALB 1.7* -- ALT 18 -- AST 19 -- ALKPHOS 66 -- TBILI 1.7* -- LACT -- 1.1 LD total - 185 Haptoglobin - 153 CT abdomen - nodular liver, cholelithiasis, no dilated bowel. Colonic diverticulosis. Pleural effusion Impression/Recommendations Anemia - acute normocytic. Had two bloody bowel movements today. Reported episodic bright red blood per rectum at home -Monitor Hgb/Hct - transfuse as needed - Monitor BMs for bleeding - Consider bleeding scan for continued episodes of rectal bleeding - Plan EGD today with Dr. Ruiz - May need colonoscopy depending on results of EGD Atrial fibrillation with RVR - on Amiodarone drip - managed per primary team Pulmonary embolism- acute. Unable to anticoagulate due to GI bleeding - Possible IVC filter - Vascular surgery following Plan EGD with Dr. Ruiz. Discussed with patient and he is in agreement GI will continue to follow Thank you for the consult SIGNATURE: Monica Abel APRN.INFORMATICA MDM ARCHITECT PATIENT NAME: Joel Matson DATE: March 25, 2018 TIME: 10:02 AM PAGER/CONTACT #: [phone] David Cerrato MD 03/25/2018 4:13 PM Signed [facility] STAFF PHYSICIAN NOTE OF PERSONAL INVOLVEMENT IN CARE I have reviewed the progress note obtained and documented by the resident and I personally participated in the quintana components. I have discussed the case and management of the patient's care. The following comments revise or confirm relevant quintana components of the note. 52/M with PMHx of DM and ANDREW (on CPAP) developed cough with sputum and left chest pain about 2-3 weeks ago. He was treated with shots (2 in each hip) in his PCPs office and then antibiotics (small blue pills twice a day for about 10 days). His symptoms got better but over the past week has developed worsening dyspnea and left chest pain. He had a near syncopal event today with incontinence (bladder and bowel) on going to the bathroom so presented to the ER. Investigation in the ER showed severe anemia (Hb 4.5, normocytic), CT chest showed small to mod left loculated pleural effusion, left basilar atelectasis vs consolidation and LLL PE. He has been having some nausea and vomiting over the past few days without hematemesis or coffee ground emesis. Stool has been dark brown without obvious blood. No fever or chills. ? Was also found to be in Afib and was started on amiodarone. Currently in NSR. Had two dark stools overnight/this am. Received another PRBC. c/o mild sob. No cough/sputum production. Mild pleuritic chest pain (left) with deep breathing. 100% 3L [place], laying comfortably in bed Decreased breath sounds in b/l bases, chest pain left on deep breathing but without chest wall tenderness Regular rate and rhythm, NSR Obese, soft, nt/nd No c/c/e IMPRESSION: ? Severe anemia secondary to GIB, likely upper ? Acute hypoxic respiratory failure ? Left loculated small to moderate pleural effusion with adjacent atelectasis/consolidation ? Recently treated for pneumonia x 10 days ? LLL PE ? Paroxysmal Afib: on amiodarone ? ANDREW on CPAP ? DM ? obesity PLAN: ? Blood transfusion, keep Hb>7 ? GI input appreciated, EGD today ? D/W Vascular surgery, Dr Castillo. Patient to d/w family about filter ? If bleeding source controlled, may not need filter but will place if risk of bleeding remains ? Anticoagulation depending on work up and when ok with GI ? D/c amiodarone ? CPAP QHS ? Observe without antibiotics ? LE DVT: negative for clot ? Wean oxygen ? SCDs ? ICU monitoring ? Patient/Family Updated: yes. SIGNATURE: David Cerrato MD [facility] PAGER:[phone] DATE of SERVICE: March 25, 2018 TIME of SERVICE: 10:[address], LD, RD 03/25/2018 12:32 PM Signed NUTRITION THERAPY INITIAL ASSESSMENT SERVICE DATE: 03/25/2018 SERVICE TIME: 12:15 PM eval for MST 2 RECOMMENDED MALNUTRITION DIAGNOSIS: MODERATE PROTEIN-CALORIE MALNUTRITION In the context of Acute Illness or Injury based on: Unintentional Weight Loss: >2% over 1 week Insufficient Energy Intake: less than or equal to 50% for greater than or equal to 5 days NUTRITION CARE PLAN: Problem, Etiology and Signs/Symptoms: Suboptimal oral intake related to decreased appetite/not feeling well x 2 weeks 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 Will continue to follow and monitor tolerance and intake. Will order nutrition supplements as needed.-no interventions currently Coordination of Care:MICU rounding team Monitor and Evaluation: Goal: Meet >75% of estimated needs Monitor fluid/electrolyte balance Monitor labs, I/Os, vital signs, weight Discharge Nutrition Recommendations: To be determined Per HPI: 52/M with PMHx of DM and ANDREW (on CPAP) developed cough with sputum and left chest pain about 2-3 weeks ago. He was treated with shots (2 in each hip) in his PCPs office and then antibiotics (small blue pills twice a day for about 10 days). His symptoms got better but over the past week has developed worsening dyspnea and left chest pain. He had a near syncopal event today with incontinence (bladder and bowel) on going to the bathroom so presented to the ER. Investigation in the ER showed severe anemia (Hb 4.5, normocytic), CT chest showed small to mod left loculated pleural effusion, left basilar atelectasis vs consolidation and LLL PE. He has been having some nausea and vomiting over the past few days without hematemesis or coffee ground emesis. Stool has been dark brown without obvious blood. No fever or chills. ? Active Hospital Problems Diagnosis Date Noted - Nicotine use disorder, F17.2 03/25/2018 - Obesity, Class III, BMI >= 40 03/25/2018 - Anemia 03/24/2018 - Atrial fibrillation with RVR ([facility]) 03/24/2018 - Pulmonary embolism ([facility]) 03/24/2018 Present Diet Order: Clear Liquid Nutritional Intake Prior to Admission: <50% estimated energy need over the past 2 week(s) GI symptoms: currently,patient states he feels some pain in his abdomen but he thinks this is due to hunger. Abdominal Exam: abdomen is distended Is the patient having any pain that is interfering with oral/enteral intake? No ANTHROPOMETRICS Height: 172.7 cm (5' 8) Admission Weight: 120.1 kg (264 lb 12.4 oz) Current Weight: 124.4 kg (274 lb 4 oz) Body mass index is 41.7 kg/m?. class 3 obesity Weight has decreased by 4.54 kg over 2 weeks representing 3.7 % weight change. Last Wt 03/25/18 : 124.4 kg (274 lb 4 oz) 08/01/07 : 114.3 kg (252 lb) [place] Body Weight: 68.4kg Resting Metabolic Rate: 2075 Estimated kilocalorie needs: 1022-5454 kilocalories determined by 25-30 kcal/kg Estimated protein needs: 75-103 grams determined by 1.1-1.5 g/kg [place] weight Estimated fluid needs: 2000 milliliters based on 1 mL per kcal NUTRITION FOCUSED PHYSICAL EXAM: Subcutaneous Fat Loss Orbital No fat loss Triceps No fat loss Mid-axillary at the iliac crest No fat loss Muscle Loss Locations: Temporalis No muscle loss Pectoralis Unable to determine at this time Deltoids Unable to determine at this time Interosseous Unable to determine at this time Latissimus dorsi, trapezius Unable to determine at this time Quadriceps Unable to determine at this time Gastrocnemius Unable to determine at this time Potential micronutrient deficiency revealed in: Skin - pallor Teeth - poor dentition,missing teeth Edema: Yes Generalized Ascites: No Assessment of Functional Status: Functional capacity is unrelated to nutrition status Temperature Max in 24 hours: Temp (24hrs), Av ?C (98.6 ?F), Min:35.8 ?C (96.4 ?F), Max:38.1 ?C (100.6 ?F) BP 84/51 Pulse 72 Temp 36.6 ?C (97.9 ?F) Resp 12 Ht 172.7 cm (5' 8) Wt 124.4 kg (274 lb 4 oz) SpO2 99% BMI 41.70 kg/m? Recent Labs 03/25/18 0800 03/25/18 0210 03/24/18 1400 GLUC -- 207* -- -- BUN -- 18 -- -- CREAT -- 0.53* -- -- NA -- 139 -- -- K -- 3.5 -- -- CHLOR -- 108* -- -- CO2 -- 26 -- -- ALB -- -- -- 1.7* HB 6.5* 7.2* < > -- HCT -- 21.3* -- -- WBC -- 9.23* -- -- < > = values in this interval not displayed. Potential Signs of Inflammation: leukocytosis, hyperglycemia, hypoalbuminemia and imaging studies Intake/Output 03/23/18 0700 - 03/24/18 0659 03/24/18 0700 - 03/25/18 0659 03/25/18 07 - 03/26/18 0659 Intake (ml) 0 3096.8 774.8 Output (ml) 0 900 0 Net (ml) 0 2196.8 774.8 MNT Billing Type: Initial Assess/15 min 3 units SIGNATURE: Elvis Booker RD, LD PATIENT NAME: Joel Matson DATE: March 25, 2018 TIME: 12:15 PM PAGER: [phone] David Ruiz MD 03/25/2018 1:13 PM Signed BRIEF OPERATIVE / PROCEDURE NOTE LOG ID: [id number] SURGERY/PROCEDURE DATE: 03/25/2018 INCISION/PROCEDURE START TIME: 11:27 AM INCISION CLOSE/PROCEDURE END TIME: 11:31 AM SURGEON(S)/PROCEDURALIST(S) AND ZIPPER SETTER(S): Surgeon(s) and Role: * David Ruiz - Primary No Additional Staff PROCEDURE(S): EGD +/- Dilatation and Biopsy ANESTHESIA: Versed 3 mg, Fentanyl 50 mcg, Cetacaine spray FINDINGS: 3 small gastric ulcers - bx'd No blood or stigmata of bleeding seen ESTIMATED BLOOD LOSS: None SPECIMENS: as above COMPLICATIONS: None PRE-OP/PRE-PROCEDURE DIAGNOSIS: GI bleed POST-OP/POST-PROCEDURE DIAGNOSIS: as above Daily PPI Colonoscopy Tuesday Follow h/h Dict #: [id number] SIGNATURE: David Ruiz MD PATIENT NAME: Joel Matson DATE: March 25, 2018 TIME: 1:13 PM PAGER/CONTACT #: Cordelia Luz, RN, RN 03/25/2018 2:[address] Tellez paged Hg 8.1 Keli Laureano MD 03/27/2018 9:35 AM Signed [facility] - Consultation PATIENT NAME: JOEL MATSON CSN: [id number] DATE OF : 1965 SEX/AGE: M/52 PATIENT TYPE: I HOSP SVC: PULM LOCATION: [id number] DATE OF SERVICE: 03/26/2018 INFECTIOUS DISEASE CONSULT TIME OF CONSULT: 3:17 p.m. HISTORY OF PRESENT ILLNESS: The patient is a 52-year-old man who was transferred from [facility] Emergency Department for severe anemia, severe dyspnea, loculated left pleural effusion with left lower lobe infiltrate and left lower lobe pulmonary embolism. He was noted to be in atrial fibrillation. He is suspected to have GI bleeding with maroon colored stools. He was started on intravenous Zosyn in [place] and this was continued after transfer here. Infectious Disease consult was requested regarding possible complicated or loculated left pleural effusion. He was admitted under the Pulmonary Critical Care Service to the ICU. Vascular Surgery was consulted and has placed an IVC filter this afternoon. Thoracic Surgery has been consulted and is planning to place a chest tube tomorrow. Gastroenterology has also been consulted, he had an upper GI endoscopy with biopsy showing 3 small gastric ulcers. He is apparently also to have colonoscopy tomorrow. He developed cough with shortness of breath and pleuritic left lower chest pain approximately 2 weeks previously. He was treated with antibiotics by his primary care physician including 4 injections on the 1st day and a week of oral antibiotics, the name of which he does not know. He had partial improvement, felt good enough that he attempted to return to work and work for a few days, but then got progressive increase in shortness of breath along with chest pain. His physician arranged some additional outpatient studies, but his dyspnea worsened to the point where his son had to drive him to the procedures and eventually he was advised to go to the emergency room in [place]. A CT angiogram of the chest revealed left lower lobe infiltrate or atelectasis with an apparent partially loculated small to moderate left pleural effusion and left lower lobe pulmonary embolism. He was transferred here and has been admitted to the intensive care unit for additional treatment. He did not recall significant fever, chills, or sweats. He did not have any vomiting or choking spells before onset of the respiratory symptoms. He has not had any recent dental work. He has some dental problems, but no recently abscessed teeth. He did not have any syncopal episodes. He has not traveled anywhere, nor been exposed to any ill people. His developed bronchitis after he became sick. He has not had headache or sore throat. No sinus congestion. He did have some nausea after he became ill, but he did not vomit before. No diarrhea. No dysuria, urgency, or frequency. No soft tissue infection or abscess. PAST HISTORY: Diabetes, testicular cancer treated between 2002 to 2004 with resection of both testicles and radiation for 6 months, he is on no ongoing therapy at this time. He has obesity, paroxysmal atrial fibrillation, obstructive sleep apnea. MEDICATIONS: Reviewed. HOME MEDICATIONS: Reviewed. ALLERGIES: No known allergies. SOCIAL HISTORY: Lives at home with and son. He uses snuff. Does not smoke. Alcohol use on weekends. No drug use. REVIEW OF SYSTEMS: Outlined above. PHYSICAL EXAMINATION: GENERAL: Obese man, lying flat in bed. VITAL SIGNS: Temperature is 36.6, blood pressure 132/81, pulse 77, respiration 19, O2 sat 98% to 99% on room air. HEENT: No skin rashes seen. Conjunctivae are unremarkable. Oral mucosa is moist with no thrush. He is missing a number of teeth and has a number of filled teeth with some decay and gingival disease, but no obvious abscesses. No submandibular or cervical adenopathy. LUNGS: Decreased breath sounds, left base lateral and posterior. Right lung clear. HEART: Regular, systolic murmur in the left sternal border. No gallop. ABDOMEN: Soft, he has some mild nonfocal tenderness, which he attributes to the IVC procedure. No flank tenderness. EXTREMITIES: No distal emboli or joint effusions. Possibly trace lower extremity edema. DIAGNOSTIC STUDIES: Chest x-ray done 2 days ago showed left- sided effusion with decreased aeration. CT abdomen and pelvis showed some contrast in the distal ileum, transverse and ascending colon, diverticulosis without inflammation, some nodular change in the liver concerning for cirrhosis, and the moderate left pleural effusion. Ultrasound of the legs showed no DVT. Repeat chest x-ray yesterday. Moderate left pleural effusion and basilar airspace disease, unchanged. He has had minimal microbiologic studies here and I am unable to tell if he has any micro studies at [place]. MRSA screen from the nose was negative. Cold agglutinins ordered and pending. CBC today shows white count of 6.1, hemoglobin 7.5, and platelets 107,000. Serum creatinine here is 0.53. IMPRESSION: 1. Loculated left pleural effusion. Possibly parapneumonic versus related to left lower lobe pulmonary embolism. Question associated malignancy. 2. Severe anemia, attributed to GI bleeding. 3. History of testicular cancer, treated with resection and radiation therapy. 4. Diabetes mellitus. 5. Atrial fibrillation. 6. Acute respiratory failure. PLAN: I would change from Zosyn to ceftriaxone plus doxycycline. He should have pleural fluid analysis, culture and cytology when he has the fluid drained tomorrow. We will order respiratory PCR panel and urine antigens. We will order a sputum culture, although I doubt we will obtain any. If he spikes a fever, I would do blood cultures, but if he is afebrile, I will not do them as he has had antibiotics for several days. Thank you for this consult. Keli Laureano MD Infectious Disease GEB:modl /[id number] Previous Version Monica Abel APRN.INFORMATICA MDM ARCHITECT 03/26/2018 8:36 AM Signed GI CONSULT PROGRESS NOTE SERVICE DATE: 03/26/2018 SERVICE TIME: 8:31 AM CONSULTING SERVICE: Gastroenterology Subjective INTERVAL HISTORY: Feeling better. Had 2 maroon stools since EGD. Had one unit of PRBCs yesterday. Hgb 7.5 today. MEDICATIONS: Current hospital medications: pantoprazole DR 40 mg tab(s) (PROTONIX) 40 mg ORAL DAILY (6 AM) potassium chloride 80-120 mEq oral liquid 80-120 mEq ORAL/FEEDING TUBE PRN potassium chloride iv piggyback 20 mEq in sterile water 100 mL 20 mEq INTRAVENOUS PRN magnesium sulfate in water 2 g in sterile water 50 ml 2 g INTRAVENOUS PRN sodium phosphate 45 mmol in NaCl 0.9% 250 mL 45 mmol INTRAVENOUS PRN calcium gluconate 4 g in NaCl 0.9% 250 mL 4 g INTRAVENOUS PRN NaCl 0.9% iv infusion 100 mL/hr INTRAVENOUS CONTINUOUS dextrose 40 % 15 g 15 g ORAL PRN glucagon 1 mg injection (GLUCAGEN) 1 mg INTRAMUSCULAR PRN dextrose 50% in water 25 mL syringe 12.5 g INTRAVENOUS PRN insulin regular human injection (short acting) (NovoLIN R,HumuLIN R) SUBCUTANEOUS q 6 H ondansetron (PF) 4 mg injection (ZOFRAN) 4 mg INTRAVENOUS q 6 H PRN iv contrast (radiology procedure) INTRAVENOUS DIRECTED PRN prochlorperazine 5 mg injection (COMPAZINE) 5 mg INTRAVENOUS q 6 H PRN Objective PHYSICAL EXAM: VITALS:BP (!) 107/44 Pulse 79 Temp 36.2 ?C (97.2 ?F) Resp 18 Ht 172.7 cm (5' 8) Wt 124 kg (273 lb 5.9 oz) SpO2 97% BMI 41.57 kg/m? ABDOMEN: Soft, nondistended, nontender, bowel sounds present. No guarding, rebound or rigidity. GENERAL: Alert and oriented. No distress DATA: Diagnostic tests reviewed for today's visit: Most recent labs and imaging results. CBC, Coags, BMP, Mg, Phos Recent Labs 03/26/18 0200 03/25/18200903/25/18 1355 03/25/18 0210 03/24/18 1600 03/24/18 1345 WBC 6.14 -- -- -- 9.23* -- -- 8.91 HB 7.5* 7.3* 8.1* < > 7.2* < > -- 4.7* HCT 23.0* -- -- -- 21.3* -- -- 15.3* PLT 107* -- -- -- 116* -- -- 146 APTT -- -- -- -- -- -- 19.1* -- NA 139 -- -- -- 139 -- -- 137 K 3.2* -- -- -- 3.5 -- -- 3.8 CHLOR 108* -- -- -- 108* -- -- 105 CO2 27 -- -- -- 26 -- -- 27 BUN 13 -- -- -- 18 -- -- 15 CREAT 0.53* -- -- -- 0.53* -- -- 0.52* GLUC 189* -- -- -- 207* -- -- 310* CA 7.0* -- -- -- 7.1* -- -- 7.3* < > = values in this interval not displayed. CSF AND Dilantin Liver Function, Amylase, AND Lipase Recent Labs 03/24/18 1400 03/24/18 1345 TPROT 4.8* -- ALB 1.7* -- ALT 18 -- AST 19 -- ALKPHOS 66 -- TBILI 1.7* -- LACT -- 1.1 EGD - small gastric ulcers. No bleeding Impression/Recommendations Anemia - acute normocytic. EGD showed no bleeding -Monitor Hgb/Hct - transfuse as needed - Monitor BMs for bleeding -- Plan colonoscopy tomorrow with Dr. Kang ? Atrial fibrillation with RVR - amiodarone drip stopped - managed per primary team ? Pulmonary embolism- acute. Unable to anticoagulate due to GI bleeding - Possible IVC filter - Vascular surgery following ? Can continue clear liquids today. Will give 2 dulcolax tabs at 3 pm then start colon prep at 4 pm ? GI will continue to follow SIGNATURE: Monica Abel APRN.INFORMATICA MDM ARCHITECT PATIENT NAME: Joel Matson DATE: March 26, 2018 TIME: 8:31 AM PAGER/CONTACT #: [phone] Alejandro Montelongo MD 03/26/2018 2:25 PM Signed CONSULT: THORACIC SERVICE SERVICE DATE: 03/26/2018 SERVICE TIME: 1130 REASON FOR CONSULT: Pleural effusion REQUESTING PHYSICIAN: [place]i PRIMARY CARE PHYSICIAN: No primary care provider on file. Subjective Mr. Matson is a 52 year old male who presents for cough and left chest pain and dyspnea. He has had these symptoms for weeks, and was getting treatment from a PCP but his symptoms were worsening. He presented then with findings also of severe anemia and noted he had been having coffee ground emesis. CT findings at that time were positive for a LLL PE. He was admitted with the diagnoses of PNA, PE, GIB, treated on zosyn. EGD revealed no active source. He is currently being prepped for a colonoscopy on Tuesday. In the mean time he has been having maroon stools, with a stable Hgb post transfusion on admission. FUNCTIONAL STATUS: Independent No past medical history on file. No past surgical history on file. No family history on file. Social History Substance Use Topics - Smoking status: Not on file - Smokeless tobacco: Current User Types: Snuff Comment: 1 can per day - Alcohol use Yes Comment: weekends Prescriptions Prior to Admission: COMPOUNDED PRESCRIPTION testosterone cream for testic CA Disp: Rfl: 0 COMPOUNDED PRESCRIPTION glucophage dose not known Disp: Rfl: 0 Exenatide 10 mcg/0.04 mL SUBCUTANEOUS PnIj Take one(1) tablet two(2) times daily. Disp: Rfl: 0 COMPOUNDED PRESCRIPTION diabetic med, name/dose unknown Disp: Rfl: 0 COMPOUNDED PRESCRIPTION lexapro, dose unknown Disp: Rfl: 0 Current hospital medications: bisacodyl EC 10 mg tab(s) (DULCOLAX) 10 mg ORAL ONCE polyethylene glycol 3350 255 g oral powder (MIRALAX, GLYCOLAX) 255 g ORAL ONCE piperacillin-tazobactam 3.375 g in dextrose (iso-osmotic) 50 mL (ZOSYN) 3.375 g INTRAVENOUS q [address] 40 mg tab(s) (PROTONIX) 40 mg ORAL DAILY (6 AM) potassium chloride 80-120 mEq oral liquid 80-120 mEq ORAL/FEEDING TUBE PRN potassium chloride iv piggyback 20 mEq in sterile water 100 mL 20 mEq INTRAVENOUS PRN magnesium sulfate in water 2 g in sterile water 50 ml 2 g INTRAVENOUS PRN sodium phosphate 45 mmol in NaCl 0.9% 250 mL 45 mmol INTRAVENOUS PRN calcium gluconate 4 g in NaCl 0.9% 250 mL 4 g INTRAVENOUS PRN NaCl 0.9% iv infusion 100 mL/hr INTRAVENOUS CONTINUOUS dextrose 40 % 15 g 15 g ORAL PRN glucagon 1 mg injection (GLUCAGEN) 1 mg INTRAMUSCULAR PRN dextrose 50% in water 25 mL syringe 12.5 g INTRAVENOUS PRN insulin regular human injection (short acting) (NovoLIN R,HumuLIN R) SUBCUTANEOUS q 6 H ondansetron (PF) 4 mg injection (ZOFRAN) 4 mg INTRAVENOUS q 6 H PRN iv contrast (radiology procedure) INTRAVENOUS DIRECTED PRN prochlorperazine 5 mg injection (COMPAZINE) 5 mg INTRAVENOUS q 6 H PRN Allergies As of Date: 03/24/2018 (No Known Allergies) Fully Assessed 03/24/2018 COMPLETE REVIEW OF SYSTEMS: GENERAL: No weight loss, malaise or fevers RESPIRATORY: see HPI CARDIOVASCULAR: left chest pain GI: See HPI MUSCULOSKELETAL: Negative for joint pain or swelling, back pain or muscle pain Objective PHYSICAL EXAM: Physical Exam Performed: GENERAL: Alert, no distress, cooperative LUNGS: diminished LL CARDIAC: Normal S1 and S2; no rubs, murmurs, or gallops ABDOMEN: Abdomen soft, non-tender, BS normal, No masses or organomegaly BP 115/59 Pulse 84 Temp (Src) 96.8 (Axillary) Resp 17 Ht 5' 8 (1.73m) Wt 273 lb 5.9 oz (124.0kg) SpO2 99% BMI 41.58 kg/(m2). DATA: Diagnostic tests reviewed for today's visit: Most recent labs and imaging results. Impression/Recommendations 52 YO male with loculated pleural effusion - would recommend bedside large bore chest tube. At the request of the MICU service this will be performed after his colonoscopy. - INR in AM D/w Dr. Montelongo SIGNATURE: Jose Woods MD PATIENT NAME: Joel Matson DATE: March 26, 2018 TIME: 10:59 AM PAGER: [phone] Films reviewed, case d/w resident and recommendation made for chest tube insertion on left, but pulmonary doesn't want it done until after scope on Tuesday! Will see patient tomorrow. Previous Version Jose Woods MD 03/26/2018 11:10 AM Attested Attestation signed by Barbara Castillo at 03/26/2018 11:22 AM I saw and evaluated the patient. Discussed with the resident and agree with resident's findings and plan as documented in the resident's note. I spent 15 minutes in the visit, with more than 50% of the total [id number] time of the visit in counseling / coordination of care. Barbara Castillo MD VASCULAR SURGERY PROGRESS NOTE SERVICE DATE: 03/26/2018 Subjective SUBJECTIVE: Maroon BM overnight. Denies N/V/CP/SOB Diet: DIET LIQUID DIET NPO Objective OBJECTIVE: Vitals: Temp (24hrs), Av.5 ?C (97.7 ?F), Min:36 ?C (96.8 ?F), Max:37 ?C (98.6 ?F) BP 115/59 Pulse 84 Temp 36 ?C (96.8 ?F) Resp 17 Ht 172.7 cm (5' 8) Wt 124 kg (273 lb 5.9 oz) SpO2 99% BMI 41.57 kg/m? O2 Therapy: Room Air IANDO: Date 03/25/18 07 - 03/26/18 0659 03/26/18699 - 03/27/18 0659 Shift 1655-7204 1882-1358 7081-5130 24 Hour Total 4381-6022 9333-9421 1590-1140 24 Hour Total I N T A K E PO 043 618 9110 1080 1080 PO 358 775 5259 1080 1080 IV 610.8 717 651 4815.8 815 815 NS 0.9% 550 191 144 6000 415 415 Potassium IVPB 400 400 Amiodarone 60.8 60.8 Blood Products 350 350 PRBC Intake (mL) 350 350 Shift Total 1420.8 7766 638 6407.8 1895 1895 O U T P U T Urine 500 625 484 9851 0 0 Void (ml) 500 688 888 9206 0 0 Urine Incontinence/Not Saved 1 x 1 x 2 x 2 x # of BMs Stool Incontinence 2 x 2 x Number of BMs 0 x 0 x 0 x 0 x 0 x Shift Total 500 835 697 9017 0 0 Weight (kg) 124.4 124.4 124 124 124 124 124 124 MEDICATIONS Current Facility-Administered Medications: bisacodyl EC 10 mg tab(s) (DULCOLAX) 10 mg ORAL ONCE piperacillin-tazobactam 3.375 g in dextrose (iso-osmotic) 50 mL (ZOSYN) 3.375 g INTRAVENOUS q [address] 40 mg tab(s) (PROTONIX) 40 mg ORAL DAILY (6 AM) potassium chloride 80-120 mEq oral liquid 80-120 mEq ORAL/FEEDING TUBE PRN potassium chloride iv piggyback 20 mEq in sterile water 100 mL 20 mEq INTRAVENOUS PRN magnesium sulfate in water 2 g in sterile water 50 ml 2 g INTRAVENOUS PRN sodium phosphate 45 mmol in NaCl 0.9% 250 mL 45 mmol INTRAVENOUS PRN calcium gluconate 4 g in NaCl 0.9% 250 mL 4 g INTRAVENOUS PRN NaCl 0.9% iv infusion 100 mL/hr INTRAVENOUS CONTINUOUS dextrose 40 % 15 g 15 g ORAL PRN Or glucagon 1 mg injection (GLUCAGEN) 1 mg INTRAMUSCULAR PRN Or dextrose 50% in water 25 mL syringe 12.5 g INTRAVENOUS PRN insulin regular human injection (short acting) (NovoLIN R,HumuLIN R) SUBCUTANEOUS q 6 H ondansetron (PF) 4 mg injection (ZOFRAN) 4 mg INTRAVENOUS q 6 H PRN iv contrast (radiology procedure) INTRAVENOUS DIRECTED PRN prochlorperazine 5 mg injection (COMPAZINE) 5 mg INTRAVENOUS q 6 H PRN Labs: Recent Labs 03/26/18 0200 03/25/18200903/25/18 02103/24/18 1400 03/24/18 1345 NA 139 -- -- 139 -- -- 137 K 3.2* -- -- 3.5 -- -- 3.8 CHLOR 108* -- -- 108* -- -- 105 CO2 27 -- -- 26 -- -- 27 BUN 13 -- -- 18 -- -- 15 CREAT 0.53* -- -- 0.53* -- -- 0.52* GLUC 189* -- -- 207* -- -- 310* ANION 7* -- -- 9 -- -- 9 CA 7.0* -- -- 7.1* -- -- 7.3* ALB -- -- -- -- -- 1.7* -- AST -- -- -- -- -- 19 -- ALT -- -- -- -- -- 18 -- ALKPHOS -- -- -- -- -- 66 -- TBILI -- -- -- -- -- 1.7* -- WBC 6.14 -- -- 9.23* -- -- 8.91 HB 7.5* 7.3* < > 7.2* < > -- 4.7* HCT 23.0* -- -- 21.3* -- -- 15.3* PLT 107* -- -- 116* -- -- 146 LACT -- -- -- -- -- -- 1.1 < > = values in this interval not displayed. Exam: GENERAL: Alert, no distress, cooperative LUNGS: Unlabored breathing on O2 Therapy: RA CARDIAC: rate and rhythm as above, EXTREMITIES: FLORES, no edema ? ASSESSMENT AND PLAN: Active Hospital Problems Diagnosis Date Noted - Obstructive sleep apnea 03/26/2018 Chronic - Diabetes (HCC) 03/26/2018 Chronic - Nicotine use disorder, F17.2 03/25/2018 - Obesity, Class III, BMI >= 40 03/25/2018 - Malnutrition of moderate degree (HCC) 03/25/2018 - Anemia 03/24/2018 - Atrial fibrillation with RVR ([facility]) 03/24/2018 - Pulmonary embolism (HCC) 03/24/2018 - GI bleed 03/24/2018 Overview Note: Added automatically from request for surgery [id number] 52 year old male with PE and GIB - continued need for IVCF. Plan per MICU team and patient are to proceed with filter. Will place today. Assessment and plan discussed with attending: Anna SIGNATURE: Jose Woods MD PATIENT NAME: Joel Maston DATE: March 26, 2018 TIME: 11:08 AM Pager: [phone] Barbara Castillo MD 03/26/2018 11:12 AM Signed Pt seen and examined. D/W Dr Tellez. Pt with no source from EGD. Likely source from bowel and pt unlikely to be anticoagulated. In addition, pt will need treatment of his L plearual effusion. Pt with current PE, unable to be anticoagulated secondary to bleeding risk. Will place IVC filter. Pt agreeable to procedure after R/B/A explained to him. MD Agustín Martell, DO 03/26/2018 1:37 PM Attested Attestation signed by David Cerrato at 03/26/2018 6:00 PM [facility]FF [facility]YSICIAN NOTE OF PERSONAL INVOLVEMENT IN CARE I have reviewed the progress note obtained and documented by the resident and I personally participated in the quintana components. I have discussed the case and management of the patient's care. The following comments revise or confirm relevant quintana components of the note. 52/M with PMHx of DM and ANDREW (on CPAP) developed cough with sputum and left chest pain about 2-3 weeks ago. He was treated with shots (2 in each hip) in his PCPs office and then antibiotics (small blue pills twice a day for about 10 days). His symptoms got better but over the past week has developed worsening dyspnea and left chest pain. He had a near syncopal event today with incontinence (bladder and bowel) on going to the bathroom so presented to the ER. Investigation in the ER showed severe anemia (Hb 4.5, normocytic), CT chest showed small to mod left loculated pleural effusion, left basilar atelectasis vs consolidation and LLL PE. He has been having some nausea and vomiting over the past few days without hematemesis or coffee ground emesis. Stool has been dark brown without obvious blood. No fever or chills. ? Was also found to be in Afib and was started on amiodarone. Currently in NSR. Amiodarone was stopped 03/25/18. EGD on 03/25/18 showed 3 small non bleeding gastric ulcers, biopsied. On PPI. Had dark bloody movements yesterday afternoon, one so far today. Breathing improved but still with pleuritic pain and breathing heavy. 102/58 77/min 96% RA Sitting in chair, pleasant Decreased breath sounds in bases Regular rhythm, NSR s1s2 normal abd soft, nt nd No c/c/e CXR: persistent moderate left pleural effusion Hb 7.5 (7.3 yesterday pm) IMPRESSION: ?Severe anemia secondary to GIB ?EGD showed 3 non bleeding small gastric ulcers, biopsied ?Acute hypoxic respiratory failure: improved ?Left loculated small to moderate pleural effusion with adjacent atelectasis/consolidation with pleuritic chest pain and dyspnea ?Recently treated for pneumonia x 10 days ?LLL PE ?Paroxysmal Afib: in NSR ?ANDREW on CPAP ?DM ?obesity? PLAN: ?Blood transfusion, keep Hb>7 ?GI input appreciated, colonoscopy tomorrow ?D/W Vascular surgery, Dr Castillo. Will need IVC filter due to ongoing GIB and other complications/issues which will need intervention ?D/w patient, agrees ?Anticoagulation depending on work up and when ok with GI ?CPAP QHS ?Thoracic surgery consult for chest tube/pigtail placement ?ID consult for opinion on antibiotics for treated/partially treated complicated effusion ?Start zosyn ?LE DVT: negative for clot ?SCDs ?ICU monitoring Patient/Family Updated: yes. Agreeable with plan. SIGNATURE: David Cerrato MD [facility] PAGER:[phone] DATE of SERVICE: March 26, 2018 TIME of SERVICE: 10:03 AM MICU - PROGRESS NOTE SERVICE DATE: 03/26/2018 SERVICE TIME: 12:29 PM Admission Date: 03/24/2018 AGE: [age] year old LOS: 2 days Subjective REASON FOR ICU ADMISSION: GI Bleeding and Pneumonia 2 small bowel movements with blood overnight. EGD done yesterday showed no source of bleeding. Plan for colonoscopy Tuesday. Patient admits to some SOB. Admits to left chest pain with breathing. Cough is productive. Denies abdominal pain, nausea or vomiting. Tolerating diet. Objective PROBLEMS: ACTIVE PROBLEM LIST Anemia Atrial Fibrillation With Rvr (Hcc) Pulmonary Embolism (Hcc) Nicotine use disorder, F17.2 Obesity, Class III, BMI >= 40 Malnutrition of Moderate Degree (Hcc) GI Bleed Diabetes (Hcc) Obstructive Sleep Apnea PAST MEDICAL HISTORY Diagnosis Date - Testicular cancer (HCC) 2002 PAST SURGICAL HISTORY Procedure Laterality Date - ORCHIECTOMY SIMPLE Bilateral 2002 testicular cancer Social History Marital status: Spouse name: Years of education: Number of children: Social History Main Topics Smokeless tobacco: Current User Types: Snuff Comment: 1 can per day Alcohol use: Yes Comment: weekends Drug use: No VITAL SIGNS (last 24hrs min/max): Temp Av.5 ?C (97.7 ?F) Min: 36 ?C (96.8 ?F) Max: 37 ?C (98.6 ?F) Pulse Av.6 Min: 69 Max: 85 No Data Recorded Cuff BP Min: 93/58 Max: 122/72 Pain Score: 0/10 Vital signs reviewed. BP 119/78 Pulse 78 Temp (Src) 97.9 (Axillary) Resp 20 Ht 5' 8 (1.73m) Wt 273 lb 5.9 oz (124.0kg) SpO2 100% BMI 41.58 kg/(m2). Temp (24hrs), Av.5 ?C (97.7 ?F), Min:36 ?C (96.8 ?F), Max:37 ?C (98.6 ?F) NET FLUID BALANCE Intake/Output Summary (Last 24 hours) at 03/26/18 1229 Last data filed at 03/26/18 1139 Gross per 24 hour Intake 5061 ml Output 1350 ml Net 3711 ml MEDICATIONS Current Facility-Administered Medications: [MAR Hold due to Transfer] bisacodyl EC 10 mg tab(s) (DULCOLAX) 10 mg ORAL ONCE [MAR Hold due to Transfer] polyethylene glycol 3350 255 g oral powder (MIRALAX, GLYCOLAX) 255 g ORAL ONCE [MAR Hold due to Transfer] piperacillin-tazobactam 3.375 g in dextrose (iso-osmotic) 50 mL (ZOSYN) 3.375 g INTRAVENOUS q 6 H [MAR Hold due to Transfer] pantoprazole DR 40 mg tab(s) (PROTONIX) 40 mg ORAL DAILY (6 AM) [MAR Hold due to Transfer] potassium chloride 80-120 mEq oral liquid 80-120 mEq ORAL/FEEDING TUBE PRN [MAR Hold due to Transfer] potassium chloride iv piggyback 20 mEq in sterile water 100 mL 20 mEq INTRAVENOUS PRN [MAR Hold due to Transfer] magnesium sulfate in water 2 g in sterile water 50 ml 2 g INTRAVENOUS PRN [MAR Hold due to Transfer] sodium phosphate 45 mmol in NaCl 0.9% 250 mL 45 mmol INTRAVENOUS PRN [MAR Hold due to Transfer] calcium gluconate 4 g in NaCl 0.9% 250 mL 4 g INTRAVENOUS PRN [MAR Hold due to Transfer] NaCl 0.9% iv infusion 100 mL/hr INTRAVENOUS CONTINUOUS [MAR Hold due to Transfer] dextrose 40 % 15 g 15 g ORAL PRN Or [MAR Hold due to Transfer] glucagon 1 mg injection (GLUCAGEN) 1 mg INTRAMUSCULAR PRN Or [MAR Hold due to Transfer] dextrose 50% in water 25 mL syringe 12.5 g INTRAVENOUS PRN [MAR Hold due to Transfer] insulin regular human injection (short acting) (NovoLIN R,HumuLIN R) SUBCUTANEOUS q 6 H [MAR Hold due to Transfer] ondansetron (PF) 4 mg injection (ZOFRAN) 4 mg INTRAVENOUS q 6 H PRN [MAR Hold due to Transfer] iv contrast (radiology procedure) INTRAVENOUS DIRECTED PRN [MAR Hold due to Transfer] prochlorperazine 5 mg injection (COMPAZINE) 5 mg INTRAVENOUS q 6 H PRN Lines, Drains, and Airways Line Peripheral 03/24/18 Admission to Hospital Right Antecubital 20 Gauge 2 days PHYSICAL EXAM PERFORMED: General: Awake alert. Sitting in chair eating breakfast Cardiovascular: RRR, no murmur Respiratory: Diminished breath sounds at bases. Abdomen: Soft, Nontender and Positive bowel sounds Extremities: No pitting edema Neurologic: Awake, oriented, Alert, Follows commands and Moving all extremities Respiratory/Nursing Documentation: O2 Therapy: Room Air (03/26/18 1139) HEMODYNAMIC DATA: Reviewed NUTRITION: Enteral Feeds: Yes Clear liquids DATA: Diagnostic tests reviewed for today's visit, films/specimens were personally reviewed by me: Most recent labs and imaging results. LABS: Recent Labs 03/26/18 0200 03/24/18 1600 03/24/18 1400 WBC 6.14 < > -- -- RBC 2.55* < > -- -- HB 7.5* < > -- -- HCT 23.0* < > -- -- MCV 90.2 < > -- -- PLT 107* < > -- -- GLUC 189* < > -- -- BUN 13 < > -- -- CREAT 0.53* < > -- -- NA 139 < > -- -- K 3.2* < > -- -- CHLOR 108* < > -- -- CO2 27 < > -- -- TPROT -- -- -- 4.8* ALB -- -- -- 1.7* CA 7.0* < > -- -- ALKPHOS -- -- -- 66 TBILI -- -- -- 1.7* AST -- -- -- 19 ALT -- -- -- 18 APTT -- -- 19.1* -- < > = values in this interval not displayed. ABG: Invalid input(s): [id number] Assessment/Plan GI bleed -monitor HgB, transfuse <7 -EGD yesterday did not reveal bleeding -GI following -Colonoscopy tomorrow -Protonix daily -IV fluids Acute respiratory failure -O2 NC wean as tolerated. Pneumonia with loculated pleural effusion -Chest surgery consult for chest tube -continue Zosyn Paroxsymal A.fib -rate improved with amiodarone H/O PE/DVT -anticoagulation contraindicated due to GI bleed -Vascular surgery consult to IVF filter SIGNATURE: Agustín Lawrence DO PATIENT NAME: Joel Matson DATE: March 26, 2018 TIME: 12:29 PM Barbara Castillo MD 03/26/2018 12:46 PM Signed VASCULAR SURGERY POST PROCEDURE NOTE DATE: 03/26/18 NAME: Joel Matson LOG ID: [id number] Pre-Procedure Diagnosis: PE, unable to anticoagulate Post Procedure Diagnosis: Same. Ginning Operator: Dr. Barbara Castillo (Primary) Procedure: insertion of edward IVC filter Anesthesia: Local Findings: successful Estimated Blood Loss: Minimal (Less Than 25 mL). Specimen: None. Complications: None. . Full report with procedural details to follow and will become available under Imaging Reports. Please contact for any questions or concerns. MD Cordelia Martell, RN, RN 03/26/2018 2:16 PM Signed D/w Dr Castillo via phone, 2 hrs Bedrest Keli Laureano MD 03/26/2018 3:33 PM Signed March 26, 2018 3:07 PM Infectious Disease Consult dictated #[id number]. Imp:Loculated left pleural effusion, parapneumonic vs related to LLL PE. ? malignancy? Hx testicular Ca Rx resection and radiation DM Rec:Change zosyn to ceftriaxone and doxy Send pleural fluid for fluid studies and cultures and cytology Respiratory pcr panel Urine antigens Sputum culture MD Santos Mullins MD 03/27/2018 6:36 AM Cosign Needed Thoracic Surgery Progress Note SERVICE DATE: 03/27/2018 Subjective SUBJECTIVE: NAEON, denies bleeding, up in chair resting comfortably Denies N/V/CP/SOB Diet: DIET NPO Objective OBJECTIVE: Vitals: Temp (24hrs), Av.4 ?C (97.6 ?F), Min:36 ?C (96.8 ?F), Max:36.6 ?C (97.9 ?F) BP 107/58 Pulse 67 Temp 36.4 ?C (97.5 ?F) (Axillary) Resp 15 Ht 172.7 cm (5' 8) Wt 127.8 kg (281 lb 12 oz) SpO2 98% BMI 42.84 kg/m? O2 Therapy: Room Air IANDO: Date 03/26/18 07 - 03/27/18 0659 03/27/18 07 - 03/28/18 0659 Shift 6745-9587 2790-0418 3412-0561 24 Hour Total 4373-7006 5924-7237 3653-0440 24 Hour Total I N T A K E PO 1320 6281 785 8382 PO 1320 6197 906 0160 IV 980 0359 546 5995 IVPB 250 250 NS 0.9% 530 8915 804 3445 Zosyn IV 50 50 Ceftriaxone IV 50 50 Potassium IVPB 400 400 Shift Total 2300 3074 1037 6411 O U T P U T Urine 0 848 853 7200 Void (ml) 0 007 733 8859 Urine Incontinence/Not Saved 2 x 2 x 4 x Urine Not Saved 1 1 # of BMs Stool Incontinence 1 x 1 x Number of BMs 0 x 4 x 4 x 8 x Shift Total 0 656 467 5136 Weight (kg) 124 124 127.8 127.8 127.8 127.8 127.8 127.8 MEDICATIONS Current Facility-Administered Medications: cefTRIAXone iv piggyback 2 g in dextrose (iso-osmotic) 50 mL (ROCEPHIN) 2 g INTRAVENOUS q 24 H doxycycline 100 mg in D5W 250 mL (VIBRAMYCIN) 100 mg INTRAVENOUS q [address] 40 mg tab(s) (PROTONIX) 40 mg ORAL DAILY (6 AM) potassium chloride 80-120 mEq oral liquid 80-120 mEq ORAL/FEEDING TUBE PRN potassium chloride iv piggyback 20 mEq in sterile water 100 mL 20 mEq INTRAVENOUS PRN magnesium sulfate in water 2 g in sterile water 50 ml 2 g INTRAVENOUS PRN sodium phosphate 45 mmol in NaCl 0.9% 250 mL 45 mmol INTRAVENOUS PRN calcium gluconate 4 g in NaCl 0.9% 250 mL 4 g INTRAVENOUS PRN NaCl 0.9% iv infusion 100 mL/hr INTRAVENOUS CONTINUOUS dextrose 40 % 15 g 15 g ORAL PRN Or glucagon 1 mg injection (GLUCAGEN) 1 mg INTRAMUSCULAR PRN Or dextrose 50% in water 25 mL syringe 12.5 g INTRAVENOUS PRN insulin regular human injection (short acting) (NovoLIN R,HumuLIN R) SUBCUTANEOUS q 6 H ondansetron (PF) 4 mg injection (ZOFRAN) 4 mg INTRAVENOUS q 6 H PRN iv contrast (radiology procedure) INTRAVENOUS DIRECTED PRN prochlorperazine 5 mg injection (COMPAZINE) 5 mg INTRAVENOUS q 6 H PRN Labs: Recent Labs 03/27/18 0150 03/26/18 1600 03/26/18 0200 03/24/18 1400 03/24/18 1345 NA 139 -- 139 < > -- 137 K 3.6 -- 3.2* < > -- 3.8 CHLOR 112* -- 108* < > -- 105 CO2 23 -- 27 < > -- 27 BUN 7 -- 13 < > -- 15 CREAT 0.43* -- 0.53* < > -- 0.52* GLUC 162* -- 189* < > -- 310* ANION 8 -- 7* < > -- 9 CA 7.3* -- 7.0* < > -- 7.3* ALB -- -- -- -- 1.7* -- AST -- -- -- -- 19 -- ALT -- -- -- -- 18 -- ALKPHOS -- -- -- -- 66 -- TBILI -- -- -- -- 1.7* -- WBC 4.35 -- 6.14 < > -- 8.91 HB 7.5* 7.4* 7.5* < > -- 4.7* HCT 23.4* -- 23.0* < > -- 15.3* PLT 101* -- 107* < > -- 146 LACT -- -- -- -- -- 1.1 INR 1.00 -- -- -- -- -- < > = values in this interval not displayed. Exam: GENERAL: No distress, Alert NEURO: AANDOx3, CN II-XII grossly intact HEENT: normocephalic, atraumatic LUNGS: Unlabored breathing O2 Therapy: Room Air, 95% SpO2 CARDIAC: Regular rate and rhythm as above ABDOMEN: Soft, non-tender, non-distended EXTREMITIES: FLORES, No deformities, No edema SKIN: Skin color, texture, turgor normal, No rashes or lesions ASSESSMENT AND PLAN: Active Hospital Problems Diagnosis Date Noted - Obstructive sleep apnea 03/26/2018 Chronic - Diabetes (HCC) 03/26/2018 Chronic - Nicotine use disorder, F17.2 03/25/2018 - Obesity, Class III, BMI >= 40 03/25/2018 - Malnutrition of moderate degree (HCC) 03/25/2018 - Anemia 03/24/2018 - Atrial fibrillation with RVR (HCC) 03/24/2018 - Pulmonary embolism (HCC) 03/24/2018 - GI bleed 03/24/2018 Overview Note: Added automatically from request for surgery [id number] 52 year old male with GIB, PE s/p IVC Filter, Left Pulm Effusion - mgmt per MICU - C-scope with GI today - plan for Left CT today after scope Assessment and plan discussed with attending: Dr. Montelongo SIGNATURE: Santos Wen MD PATIENT NAME: Joel Matson DATE: March 27, 2018 TIME: 6:09 AM Pager: [phone] Ivan Cagle DO 03/27/2018 12:22 PM Attested Attestation signed by Gerardo Nunez at 03/27/2018 1:34 PM (Updated) [facility] STAFF PHYSICIAN NOTE OF PERSONAL INVOLVEMENT IN CARE I have reviewed the progress note obtained and documented by the resident and I personally participated in the quintana components. I have discussed the case and management of the patient's care. The following comments revise or confirm relevant quintana components of the note. Interval history: Patient is resting comfortably in bed without any current complaints. Exam: RRR Clear to auscultation without wheezing bilaterally anteriorly. Good bowel sounds, soft, nontender, nondistended. Mild peripheral edema bilaterally. Dry, intact skin with good turgor. Data: Reviewed as detailed below. Most recent imaging personally reviewed by myself. IMPRESSION: ACTIVE PROBLEM LIST Anemia Atrial Fibrillation With Rvr (Hcc) Pulmonary Embolism (Hcc) Nicotine use disorder, F17.2 Obesity, Class III, BMI >= 40 Malnutrition of Moderate Degree (Hcc) GI Bleed Diabetes (Hcc) Obstructive Sleep Apnea Acute blood loss anemia Loculated left pleural effusion PLAN: IV fluids. PPI. Check serial hemoglobins. Transfuse PRN. Keep NPO. Colonoscopy as per GI. No anticoagulation for now given the acute blood loss anemia, but has an IVC filter in place. Await chest tube placement as per Cardiovascular/Thoracic Surgery. Check pleural fluid studies from Pleuravac once it is available. Is stable and OK for transfer to regular medical floor from Pulmonary/Critical Care standpoint after colonoscopy provided there are no colonoscopic findings necessitating ongoing ICU care. This patient has a high probability of sudden, clinically significant deterioration, which requires the highest level of physician preparedness to intervene urgently. I managed/supervised life or organ supporting interventions that required frequent physician assessment. I devoted my full attention to the direct care of this patient for the amount of time indicated below. Time I spent with family or surrogate(s) is included only if the patient was incapable of providing the necessary information or participating in medical decision making. Time devoted to teaching and to any procedures I billed separately is not included. Patient/Family Updated: Patient, Joel Matson, was updated regarding the goals of care, medical plan for the day, devops consultant recommendations, medical disposition and current medical condition/prognosis as and if clinically indicated. All questions and concerns were answered and addressed at this juncture. They were notified on March 27, 2018 at 09:20. The duration of the conversation was five minutes. PROGNOSIS: Good Code status: Full Code. Discussed with Registered Nurse, Pharmacist and Residents while performing multidisciplinary rounds. Critical Care Documentation: The patient has the following organ/system impairment(s): Acute blood loss anemia Time spent providing critical care services: 20 minutes. SIGNATURE: Gerardo Nunez MD [facility] PAGER:[phone] DATE of SERVICE: March 27, 2018 TIME of SERVICE: 1:24 PM Medical Intensive Care Progress Note March 27, 2018 Patient Name: Joel Matson Patient [id number][id number] Admission Date: 03/24/2018 Length of Stay: 3 Primary Service: Medical Intensive Care Assessment and plan will be discussed with Dr. Nunez and he will addend this note as he sees appropriate. Please await his recommendations. Case background: Patient is a 52 y/o CM w/ a h/o testicular cancer s/p chemoradiation, DM type 2, ANDREW on CPAP who presented to [place] ED on 03/24/18 for the complaint of 2-3 weeks of worsening productive cough and left-sided chest pain after initial improvement with antibiotic treatment by his PCP. He went to ED after a near-syncopal event with bladder/bowel incontinence. At [place], found to have Hb 4.[address] chest showed moderate left loculated pleural effusion, left basilar atelectasis vs consolidation, and LLL PE. Also found to be in Afib, started on amio gtt (which was stopped 03/25). He was transferred to [facility] ICU on 03/24 for treatment of acute hypoxic resp failure 2/2 pneumonia vs. PE, new-onset A-fib, and severe acute anemia likely due to blood loss. Patient received a total of 4 units pRBC since arrival, maintaining Hb ~ 7.5. ID followed and started Rocephin and doxy for suspected pneumonia. 03/25: EGD showed 3 small ulcers that are unlikely source of blood loss. No intervention needed. Planned for colonoscopy. 03/26: Vascular placed IVC filter (note, no thrombus seen on 03/24 US of BLE). 03/27: Colonoscopy per GI. Plan for thoracostomy per CT surgery after. Interval History for 03/27/18: Patient seen and examined in the AM. Admits limb swelling.Denies complaints detailed in review of systems below. NPO since midnight. Tolerating colon prep for colonoscopy at 1:30 PM today. No overnight acute events reported. Review of Systems: PER INTERVAL HISTORY ABOVE. Denies fevers, chills, rigors, malaise, chest pain, orthopnea, dyspnea, nausea, vomiting, abdominal pain, dysuria, hematuria, lightheadedness. Objective Present Condition: 03/27/18 0400 03/27/18 0500 03/27/18 0600 03/27/18 0700 BP: 108/51 107/58 115/60 119/59 Pulse: 65 67 68 67 Resp: 13 15 13 14 Temp: 36.4 ?C (97.5 ?F) TempSrc: Axillary SpO2: 95% 98% 97% 97% Weight: 127.8 kg (281 lb 12 oz) Height: PHYSICAL EXAMINATION: Performed with findings detailed below on 03/27/18 General: NAD, AANDO x3 , cooperative. Head: Normocephalic. Atraumatic. Eyes: PERRL. EOMI. No scleral icterus noted. Conjunctiva pink. Throat: Oral mucosa moist. No oropharyngeal erythema. No eruptions or exudates. Uvula midline. Cardiovascular: RRR, No M/G/R Respiratory: Lungs CTAB, No W/R/R, No crackles. Diminished at bilateral bases. Abdomen: Obese abdomen. Soft. Non-tender. Non-distended. No palpable masses or hepatosplenomegaly. BSx4, normoactive. No bruits. Extremities: 2+ pitting upper extremity edema. No cyanosis or clubbing. Pulses: Dorsalis pedis, posterior tibial, and radial pulses 2+ bilaterally. Capillary refill < 2 seconds. Neuro: Non-focal exam. Sensation intact in 4 extremities. Strength 4/4 in 4 extremities. Current Facility-Administered Medications: cefTRIAXone iv piggyback 2 g in dextrose (iso-osmotic) 50 mL (ROCEPHIN) 2 g INTRAVENOUS q 24 H Keli E Bollin Last Rate: 100 mL/hr at 03/27/18 0831 2 g at 03/27/18 0831 doxycycline 100 mg in D5W 250 mL (VIBRAMYCIN) 100 mg INTRAVENOUS q 12 H Keli E Bollin Last Rate: 250 mL/hr at 03/26/18 1629 100 mg at 03/26/[address] 40 mg tab(s) (PROTONIX) 40 mg ORAL DAILY (6 AM) David Ruiz 40 mg at 03/26/18 0515 potassium chloride 80-120 mEq oral liquid 80-120 mEq ORAL/FEEDING TUBE PRN Renetta (Res) MD Esvin potassium chloride iv piggyback 20 mEq in sterile water 100 mL 20 mEq INTRAVENOUS PRN Renetta (Res) MD Esvin Last Rate: 400 mL/hr at 03/26/18 1004 80 mEq at 03/26/18 1004 magnesium sulfate in water 2 g in sterile water 50 ml 2 g INTRAVENOUS PRN Renetta Mcallister MD sodium phosphate 45 mmol in NaCl 0.9% 250 mL 45 mmol INTRAVENOUS PRN Renetta Mcallister MD calcium gluconate 4 g in NaCl 0.9% 250 mL 4 g INTRAVENOUS PRN Renetta Mcallister MD NaCl 0.9% iv infusion 100 mL/hr INTRAVENOUS CONTINUOUS Renetta Mcallister MD Last Rate: 100 mL/hr at 03/27/18 0629 100 mL/hr at 03/27/18 0629 dextrose 40 % 15 g 15 g ORAL PRN Renetta Mcallister MD Or glucagon 1 mg injection (GLUCAGEN) 1 mg INTRAMUSCULAR PRN Renetta Mcallister MD Or dextrose 50% in water 25 mL syringe 12.5 g INTRAVENOUS PRN Renetta Mcallister MD insulin regular human injection (short acting) (NovoLIN R,HumuLIN R) SUBCUTANEOUS q 6 H Renetta Mcallister MD 2 Units at 03/27/18 0616 ondansetron (PF) 4 mg injection (ZOFRAN) 4 mg INTRAVENOUS q 6 H PRN Renetta Mcallister MD 4 mg at 03/24/18 1250 iv contrast (radiology procedure) INTRAVENOUS DIRECTED PRN Renetta Mcallister MD prochlorperazine 5 mg injection (COMPAZINE) 5 mg INTRAVENOUS q 6 H PRN Renetta Mcallister MD Notable morning labs: Basic labs as below. Labs: CBC: Recent Labs 03/27/18 0150 03/26/18 1600 03/26/18 0200 03/25/18 2010 03/25/18 1355 03/25/18 0800 03/25/18 0210 03/24/18 1955 03/24/18 1345 WBC 4.35 -- 6.14 -- -- -- 9.23* -- 8.91 HB 7.5* 7.4* 7.5* 7.3* 8.1* 6.5* 7.2* 6.3* 4.7* HCT 23.4* -- 23.0* -- -- -- 21.3* -- 15.3* PLT 101* -- 107* -- -- -- 116* -- 146 MCV 92.1 -- 90.2 -- -- -- 86.9 -- 94.4 COAG: Recent Labs 03/27/18 0150 03/24/18 1600 APTT -- 19.1* INR 1.00 -- BMP: Recent Labs 03/27/18 0150 03/26/18 0200 03/25/18 0210 03/24/18 1345 GLUC 162* 189* 207* 310* NA 139 139 139 137 K 3.6 3.2* 3.5 3.8 CHLOR 112* 108* 108* 105 CO2 23 27 26 27 ANION 8 7* 9 9 BUN 7 13 18 15 CREAT 0.43* 0.53* 0.53* 0.52* CHEM: Recent Labs 03/27/18 0150 03/26/18 0200 03/25/18 0210 03/24/18 1400 03/24/18 1345 ALB -- -- -- 1.7* -- TPROT -- -- -- 4.8* -- CA 7.3* 7.0* 7.1* -- 7.3* HEPATIC: Recent Labs 03/24/18 1400 ALKPHOS 66 ALT 18 AST 19 TBILI 1.7* URINALYSIS:No results for input(s): PH, SPGR, UGLUC, UBILI, UKET, UHB, UPROT, UROBIL, UWBC, SSA in the last 168 hours. Invalid input(s): NITR CARDIAC: No results for input(s): CKTEST, CKMB, CKMBP in the last 168 hours.TROPONIN@:8,No results found for: BNP:8)@ Intake/Output Summary (Last 24 hours) at 03/27/18 0903 Last data filed at 03/27/18 0756 Gross per 24 hour Intake 5102 ml Output 1551 ml Net 3551 ml Serum creatinine: 0.43 mg/dL (L) 03/27/18 0150 Estimated creatinine clearance: 265 mL/min (A) Assessment/Plan Reviewed in its entirety and amended as appropriate on 03/27/18 Cardiovascular Central venous access: None. Summary of pressor usage: None. Echocardiogram findings: None on file. EKG findings: None on file. IV fluid administration: Currently IV 1/2 NS at 100 cc/hr Current antihypertensive agents: None. Current anticoagulation / antiplatelet agents: None. Paroxsymal A.fib -Rate improved with amiodarone, gtt stopped after 03/25/18 Respiratory CXR findings: 03/27: Slightly improved left-sided pleural effusion, interval improvement of hilar vascular congestion when compared to 03/[address] chest findings: None this admission. Respiratory support measures: 97% on room air. Breathing treatments in use: None. Thoracic surgery followin/20: Recommend large-bore chest tube. INR in AM. Acute respiratory failure -O2 NC wean as tolerated. Pneumonia with loculated pleural effusion -Chest surgery consult for chest tube - ID following. See microbiology and infectious below. Infectious Antibiotic allergies: None. Antibiotics in use: Ceftriaxone 2 g IV qd ; Doxy 100 mg q12h (both Day 2) Microbiology data summary: S.pneumo Ag postive, ULeg negative, RespCx pending, Histo Ag pending ; MRSA nares negative. Infectious diseases followin/20: Started ceftriaxone and doxy ; send pleural fluid for Cx and cytology ; Follow data (above) Pneumonia with management as noted above. Renal / Patel in place?: None. Diuretics in use: None. Shift total output: 1.3 L Shift net I/O: + 5,246 Estimate of recent hourly output: ~200 - 250 cc/hr Weight change since admission: + 7 kg. Consider gentle diuresis to address fluid excess or reducing IVF flow rate. Neuro Sedation: None. Head imaging: None. No current concern for related abnormal data or patient history on present admission. Gastrointestinal GI prophylaxis: Protonix 40 mg po qd GI tubes and feeds / current diet: NPO since midnight. Gastroenterology followin/20: Colonoscopy today 03/27 after NPO at midnight and AM colon prep. GI bleed - monitor HgB, transfuse <7 - EGD yesterday did not reveal bleeding - GI following - Protonix daily - IV fluids - Colonoscopy in the PM 03/27. Endocrine / Metabolic Insulin orders: Regular SSI (2 units for 201-250) Hematologic DVT prophylaxis: Bilateral SCDs - No anticoagulant due to GIB / blood loss anemia. Transfusions this admission: Total of 4 units RBC transfused, last on 03/25. H/O PE/DVT -anticoagulation contraindicated due to GI bleed - IVC filter placed 03/26/18 Subjective PAST MEDICAL HISTORY Diagnosis Date - Testicular cancer (HCC) 2002 No current facility-administered medications on file prior to encounter. Current Outpatient Prescriptions on File Prior to Encounter: COMPOUNDED PRESCRIPTION testosterone cream for testic CA COMPOUNDED PRESCRIPTION glucophage dose not known Exenatide 10 mcg/0.04 mL SUBCUTANEOUS PnIj Take one(1) tablet two(2) times daily. COMPOUNDED PRESCRIPTION diabetic med, name/dose unknown COMPOUNDED PRESCRIPTION lexapro, dose unknown Signed: Ivan Cagle DO, PGY-1 Pager: [phone] [facility] Date: March 27, 2018 Recommendations are not finalized until co-signed by Staff physician. Removed attestation signed by Gerardo Nunez at 03/27/2018 1:31 PM (removed by Gerardo Nunez at 03/27/2018 1:34 PM) [facility] STAFF PHYSICIAN NOTE OF PERSONAL INVOLVEMENT IN CARE I have reviewed the progress note obtained and documented by the resident and I personally participated in the quintana components. I have discussed the case and management of the patient's care. The following comments revise or confirm relevant quintana components of the note. Interval history: Patient is resting comfortably in bed without any current complaints. Exam: RRR Clear to auscultation without wheezing bilaterally anteriorly. Good bowel sounds, soft, nontender, nondistended. Mild peripheral edema bilaterally. Dry, intact skin with good turgor. Data: Reviewed as detailed below. Most recent imaging personally reviewed by myself. IMPRESSION: ACTIVE PROBLEM LIST Anemia Atrial Fibrillation With Rvr (Hcc) Pulmonary Embolism (Hcc) Nicotine use disorder, F17.2 Obesity, Class III, BMI >= 40 Malnutrition of Moderate Degree (Hcc) GI Bleed Diabetes (Hcc) Obstructive Sleep Apnea Acute blood loss anemia Loculated left pleural effusion PLAN: IV fluids. PPI. Check serial hemoglobins. Transfuse PRN. Keep NPO. Colonoscopy as per GI. Await chest tube placement as per Cardiovascular/Thoracic Surgery. Check pleural fluid studies from Pleuravac once it is available. Is stable and OK for transfer to regular medical floor from Pulmonary/Critical Care standpoint after colonoscopy provided there are no colonoscopic findings necessitating ongoing ICU care. This patient has a high probability of sudden, clinically significant deterioration, which requires the highest level of physician preparedness to intervene urgently. I managed/supervised life or organ supporting interventions that required frequent physician assessment. I devoted my full attention to the direct care of this patient for the amount of time indicated below. Time I spent with family or surrogate(s) is included only if the patient was incapable of providing the necessary information or participating in medical decision making. Time devoted to teaching and to any procedures I billed separately is not included. Patient/Family Updated: Patient, Joel Matson, was updated regarding the goals of care, medical plan for the day, devops consultant recommendations, medical disposition and current medical condition/prognosis as and if clinically indicated. All questions and concerns were answered and addressed at this juncture. They were notified on March 27, 2018 at 09:20. The duration of the conversation was five minutes. PROGNOSIS: Good Code status: Full Code. Discussed with Registered Nurse, Pharmacist and Residents while performing multidisciplinary rounds. Critical Care Documentation: The patient has the following organ/system impairment(s): Acute blood loss anemia Time spent providing critical care services: 20 minutes. SIGNATURE: Gerardo Nunez MD [facility] PAGER:[phone] DATE of SERVICE: March 27, 2018 TIME of SERVICE: 1:24 PM Previous Version Kandace Laura, RN, RN 03/27/2018 2:38 PM Signed Nursing Progress Note Patient Name: Joel Matson Patient Location: [id number]/[place] [address]* Tap water enema given per order of . This note was completed by: INEZ Lucero RN, RN 03/27/2018 10:02 AM Signed Nursing Progress Note Patient Name: Joel Matson Patient Location: [place] [address]* Rounds with , residents, RN, and pharm D. This note was completed by: INEZ Lucero RN, RN 03/27/2018 11:33 AM Signed Nursing Progress Note Patient Name: Joel Matson Patient Location: [id number]/[place] [address]* RN attempted 3 IV's, unsuccessful. Resident notified that pt has no access. Picc team notified. Picc team will attempt peripheral IV later today. This note was completed by: INEZ Lucero III, MD 03/27/2018 4:13 PM Signed INFECTIOUS DISEASE CONSULT PROGRESS NOTE SERVICE DATE: 03/27/2018 SERVICE TIME: 12:17 PM CONSULTING SERVICE: ICU The patient is a 52-year-old man with past medical history of DM, ANDREW, history of testicular caner. Was transferred from [facility] Emergency Department for severe anemia, severe dyspnea and A fib with Rapid Ventricular Rate. Patient was found to have a loculated left pleural effusion with left lower lobe infiltrate and left lower lobe pulmonary embolism. Due to to very low HB and suspected GI bleed patient could not be anticoagulated. IVC filter was placed yesterday by vascular. Patient got an EGD which showed 3 gastric ulcer but unlikely the source of bleeding is scheduled to get a colonoscopy today and then chest tube placed for pleural effusion. Was initially on Piperacillin/Tazobactam and now on Ceftriaxone and doxycycline. Subjective INTERVAL HISTORY OF PRESENT ILLNESS: No overnight events. Patient has mild cough better than before and left sided neck pain. No chest pain. Current Facility-Administered Medications: pantoprazole 40 mg injection (PROTONIX) 40 mg INTRAVENOUS DAILY (6 AM) NaCl 0.45% iv infusion 100 mL/hr INTRAVENOUS CONTINUOUS cefTRIAXone iv piggyback 2 g in dextrose (iso-osmotic) 50 mL (ROCEPHIN) 2 g INTRAVENOUS q 24 H doxycycline 100 mg in D5W 250 mL (VIBRAMYCIN) 100 mg INTRAVENOUS q 12 H potassium chloride 80-120 mEq oral liquid 80-120 mEq ORAL/FEEDING TUBE PRN potassium chloride iv piggyback 20 mEq in sterile water 100 mL 20 mEq INTRAVENOUS PRN magnesium sulfate in water 2 g in sterile water 50 ml 2 g INTRAVENOUS PRN sodium phosphate 45 mmol in NaCl 0.9% 250 mL 45 mmol INTRAVENOUS PRN calcium gluconate 4 g in NaCl 0.9% 250 mL 4 g INTRAVENOUS PRN dextrose 40 % 15 g 15 g ORAL PRN Or glucagon 1 mg injection (GLUCAGEN) 1 mg INTRAMUSCULAR PRN Or dextrose 50% in water 25 mL syringe 12.5 g INTRAVENOUS PRN insulin regular human injection (short acting) (NovoLIN R,HumuLIN R) SUBCUTANEOUS q 6 H ondansetron (PF) 4 mg injection (ZOFRAN) 4 mg INTRAVENOUS q 6 H PRN prochlorperazine 5 mg injection (COMPAZINE) 5 mg INTRAVENOUS q 6 H PRN Objective PHYSICAL EXAM: Patient Vitals for the past 24 hrs: BP Temp Temp src Pulse Resp SpO2 Weight 03/27/18 1000 117/62 - - 71 16 99 % - 03/27/18 0900 127/72 - - 69 14 98 % - 03/27/18 0800 112/82 - - 75 16 99 % - 03/27/18 0700 119/59 - - 67 14 97 % - 03/27/18 0600 115/60 - - 68 13 97 % - 03/27/18 0500 107/58 - - 67 15 98 % - 03/27/18 0400 108/51 36.4 ?C (97.5 ?F) Axillary 65 13 95 % 127.8 kg (281 lb 12 oz) 03/27/18 0300 108/60 - - 75 18 97 % - 03/27/18 0200 105/61 - - 75 19 97 % - 03/27/18 0100 111/63 - - 71 14 97 % - 03/27/18 0000 95/73 36.5 ?C (97.7 ?F) Axillary 76 20 98 % - 03/26/18 2300 102/62 - - 95 23 98 % - 03/26/18 2200 (!) 79/63 - - 96 26 100 % - 03/26/18 2100 123/59 - - 78 19 98 % - 03/26/18 2000 (!) 97/42 36.6 ?C (97.9 ?F) Axillary 74 18 100 % - 03/26/18 1900 120/65 - - 76 19 97 % - 03/26/18 1800 106/69 - - 73 18 97 % - 03/26/18 1700 88/54 - - 84 17 98 % - 03/26/18 1600 109/63 36.6 ?C (97.9 ?F) - 78 19 99 % - 03/26/18 1500 132/81 - - 77 19 99 % - 03/26/18 1400 120/71 - - 72 18 98 % - 03/26/18 1330 115/62 - - 71 16 98 % - 03/26/18 1300 124/68 - - 71 15 99 % - Body mass index is 42.84 kg/m?. GENERAL: Alert, no distress, cooperative SKIN: Skin color, texture, turgor normal. No rashes or lesions. OROPHARYNX: Lips, mucosa, and tongue are normal.Teeth and gums, normal. Oropharynx normal. NECK: No jugulovenous distention, No carotid bruits, Carotid pulse normal contour, Supple LUNGS: Decreased breath sounds on the left. Crackles present. CARDIAC: Normal S1 and S2; no rubs, murmurs, or gallops ABDOMEN: Abdomen soft, non-tender, BS normal, No masses or organomegaly EXTREMITIES: Extremities normal, no deformities, edema, clubbing or skin discoloration. Good capillary refill., No ulcers NEURO: Alert, oriented X 3, Gait normal. Non-focal. Reflexes normal and symmetric. Sensation grossly intact., Cranial nerves II-XII intact PULSES: 2+ radial, 2+ carotid DATA: Diagnostic tests reviewed for today's visit: Component Latest Ref Rng AND Units 03/26/2018 03/26/2018 03/26/2018 03/27/2018 03/27/2018 03/27/2018 2:00 AM 4:00 PM 11:27 PM 1:50 AM 6:16 AM 11:34 AM WBC 4.23 - 9.07 thou/cmm 6.14 4.35 RBC 4.63 - 6.08 mil/cmm 2.55 (L) 2.54 (L) HGB 13.7 - 17.5 g/dL 7.5 (L) 7.4 (L) 7.5 (L) Hematocrit 40.1 - 51.0 % 23.0 (L) 23.4 (L) MCV 83.2 - 95.6 fl 90.2 92.1 MCH 25.7 - 32.2 pg 29.4 29.5 MCHC 32.3 - 36.5 % 32.6 32.1 (L) RDW 11.6 - 14.4 % 18.4 (H) 20.0 (H) RDW-SD 36.1 - 45.8 fl 48.0 (H) 51.3 (H) Platelet Count 141 - 365 thou/cmm 107 (L) 101 (L) MPV 8.7 - 12.0 fl 9.2 9.6 Nucleated RBC % 0.0 - 0.2 % 1.6 (H) 0.5 (H) Nucleated RBC Absolute 0.00 - 0.01 thou/cmm 0.10 (H) 0.02 (H) Sodium 136 - 145 mEq/L 139 139 Potassium 3.5 - 5.1 mEq/L 3.2 (L) 3.6 Chloride 98 - 107 mEq/L 108 (H) 112 (H) CO2 21 - 32 mEq/L 27 23 Glucose 70 - 99 mg/dL 189 (H) 162 (H) BUN 7 - 18 mg/dL 13 7 Creatinine 0.67 - 1.17 mg/dL 0.53 (L) 0.43 (L) Calcium 8.5 - 10.1 mg/dL 7.0 (L) 7.3 (L) Anion Gap 8 - 16 7 (L) 8 Prothrombin Time 9.3 - 11.9 sec 10.6 INR 1.00 eGFR >60mL/min/1.73m2 >60 >60 STREP PNEUMONIAE AG Positive for pneumococcal pneumonia LEGIONELLA AG, URINE Presumptive negative for L. pneumophilia serogroup 1 antigen . . . GLUCOSE METER 70 - 99 mg/dL 189 (H) 157 (H) 161 (H) Impression/Recommendations 1. Loculated left pleural effusion. Likely secondary to LLL Pneumonia secondary left lower Pulmonary Embolism. - Patient to get Chest tube placed today. Send for pleural studies. - urine strep Pnemo positive. - Continue with Ceftriaxone and doxycycline. Patient received one dose of Piperacillin/Tazobactam - IVC filter in place. 2. Severe anemia, attributed to GI bleeding. - awaiting colonoscopy 3. History of testicular cancer, treated with resection and radiation therapy. 4. Diabetes mellitus. 5. Atrial fibrillation. - Amio stopped. SIGNATURE: Shruthi Carmichael MD PATIENT NAME: Joel Matson DATE: March 27, 2018 TIME: 12:16 PM PAGER/CONTACT #: [phone] I saw and evaluated the patient. Discussed with the resident and agree with resident's findings and plan as documented in the resident's note. Concerned for left sided empyema related to S. pneumo pneumonia. Continue doxycycline plus ceftriaxone. Once cultures available from pleural fluid then will narrow antibiotics. Will need 4-6 weeks of oral therapy. SIGNATURE: John Hernandez III, MD PATIENT NAME: Joel Matson DATE: March 27, 2018 TIME: 4:12 PM PAGER/CONTACT #: [phone] Previous Version COURTNEY MCNAIR, PHARMACIST 03/27/2018 3:22 PM Signed MEDICATION HISTORY AND MEDICATION RECONCILIATION Patient Name:Jorge Matson : 1965 Source of history:Pharmacy records: [facility] ([place]) and [facility] Medication Nonadherence Identified: No barriers noted The above information represents the best possible medication history: Yes Reconciliation completed? No Additional comments: Please note the following changes to the initial FOOD SAFETY SPECIALIST medication list: -Removed 4 compounded prescriptions (incomplete details provided; from 08/01/2007) -Removed exanatide (incomplete details provided; from 08/01/2007) -Added all medications below Of note: -Cefdinir 300 mg BID x 10 days, ZPak, Tamiflu, and prednisone (filled at [facility] on 03/03/18) -Baclofen, gabapentin, diclofenac were only for a 14-day supply (filled at [facility] on 03/10/18) -Valtrex filled 03/10/18 for a 1-week supply -Guaifenesin AC cough syrup 10 mL every 4 hours as needed for cough (250 mL; 6-day supply) filled 03/03/18. Please see individual medications for comments/last fill dates. Allergies: ALLERGIES No Known Allergies Preferred Pharmacy: [facility]. Current FOOD SAFETY SPECIALIST Medications: Prior to Admission medications as of 03/27/18 1452 Medication Sig Last Dose Taking empagliflozin (JARDIANCE) 25 mg tablet Take 25 mg by mouth once daily. Yes insulin degludec-liraglutide (XULTOPHY) 100 unit-3.6 mg/mL Inject 50 Units subcutaneously once daily. Do not mix with other insulins. Yes testosterone (ANDROGEL) 20.25 mg/1.25 gram (1.62 %) glpm Apply 2 pumps as directed once daily. Yes metFORMIN (GLUCOPHAGE) 1,000 mg tablet Take 1,000 mg by mouth twice daily with meals. Yes linagliptin (TRADJENTA) 5 mg tab Take 1 tablet by mouth once daily. Yes rosuvastatin (CRESTOR) 40 mg tablet Take 40 mg by mouth daily at bedtime. Yes losartan (COZAAR) 100 mg tablet Take 100 mg by mouth once daily. Yes diclofenac, EC, (VOLTAREN) 50 mg EC tablet Take 50 mg by mouth twice daily. With food Filled 03/10/18 for a 14-day supply only. Yes baclofen (LIORESAL) 10 mg tablet Take 10 mg by mouth daily at bedtime. Filled 03/10/18 for a 14-day supply only. Yes gabapentin (NEURONTIN) 400 mg capsule Take 400 mg by mouth three times daily. Filled 03/10/18 for a 14-day supply only. Yes escitalopram oxalate (LEXAPRO) 10 mg tablet Take 10 mg by mouth once daily. Yes albuterol HFA (VENTOLIN HFA) 90 mcg/actuation inhaler Inhale 2 Puffs as instructed every 4 hours as needed for Wheezing/Shortness of Breath. 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 No Advance Directive: Health Literacy: 1. How often do you need to have someone help you when you read instructions, pamphlets, or other written material from your doctor or pharmacy? Never - 1 2. How confident are you filling out medical forms by yourself? Extremely - 1 If Patient scores > 3 on either question, the following interventions were put into place: Patient did not score > 3 FUNCTIONAL AND COGNITIVE/BEHAVIORAL PRIOR TO ADMISSION: Baseline Mental Status: Alert AND Oriented, Person, Place , Time and Situation Functional Status: Independent Does Patient Currently Receive Any Community Services or Home Care? None Equipment Prior to Admission: None Has the Patient Been in a Correction Facility in the Past 30 days? No SOCIAL: Living Arrangement: Home Lives With: Spouse Financial Resources: Employed: . Primary Contact: Extended Emergency Contact Information Primary Emergency Contact: DanoAlvino Mobile Relation: Son Secondary Emergency Contact: Nina Matson Mobile Relation: Spouse Supportive: Yes Other Important Patient Contacts: None Caregiver Assessment: Caregiver is ready, willing and able to meet the patient's needs as recommended by the inter-professional team? Yes Patient's transition needs and plan for meeting these needs: no Does the patient have an acute stroke diagnosis, or has the patient had a stroke during this admission? No Medication Adherence: I am convinced of the importance of my prescription medication: Agree completely - 0 I worry that my prescription medication will do more harm than good to me Disagree mostly - 0 I feel financially burdened by my [id number] expenses for my prescription medication: Agree somewhat - 0 Patient is categorized as low risk < 2 Are you interested in bedside delivery of your medications? No Food Concerns: In the Last Month, Have You had Trouble Getting Food? No trouble getting food During the Last Month, Have You Worried Whether Your Food Would Run Out Before You Had Enough Money to Buy More? No Is the Patient Psychosocially Complex? No ASSESSMENT AND PLAN: Medical Needs: None Psychosocial Needs: None FREEDOM OF CHOICE EXPLAINED: N/A POTENTIAL TRANSITION PLANS To Be Determined Pt's pharmacy [facility] SIGNATURE: Monica Mays RN PATIENT NAME: Joel Matson DATE: March 27, 2018 TIME: 3:04 PM PAGER/CONTACT #: [phone] Previous Version Kandace Laura RN, RN 03/27/2018 3:44 PM Signed Nursing Progress Note Patient Name: Joel Matson Patient Location: [place] [address]* Colonoscopy done at bedside per . This note was completed by: Kandace Laura RN STRESS REPORT Observed: 03/23/2018 Status: F Source: [place] 9:05 AM [facility] [place] [place] REPOSITORY [facility] Cardiovascular Services [address] [place] [address] MR#: [id number] Acct: [id number] Name: JOEL MATSON Rep #: [id number] : 1965 52 From: Yon Ruiz MD Primary Care: Herminio GARCIA,Ravindra Chi Status: REG CLI Ordering Dr: Monique Nazario Stress Test Report Date: 03/23/2018 Procedure: Pharmacologic stress nuclear imaging study Indications: Chest pain/shoulder pain; abnormal ECG Consent: Per the patient Procedure: The patient underwent pharmacologic (Regadenoson) evaluation with a peak heart rate of 102 beats per minute (60 predicted maximal heart rate) and a peak blood pressure of 119/82 mmHg. The baseline ECG demonstrated normal sinus rhythm. The peak pharmacologic ECG demonstrated no obvious ECG changes. There were no cardiac dysrhythmias pretest, during pharmacologic infusion, or recovery. Patient noted chronic chest/shoulder discomfort pretest, during infusion, and recovery. The examination was discontinued secondary to completion of protocol. Impression: 1. Pharmacologic (Regadenoson) evaluation 2. Peak pharmacologic ECG with no obvious ECG changes. 3. There were no cardiac dysrhythmias pretest, during pharmacologic infusion, or recovery 4. Nuclear images pending Myocardial perfusion imaging study: Technique: The patient was injected with 14.6 millicuries of technetium 99m Cardiolite and subsequently rest SPECT Cardiolite nuclear imaging was obtained in the horizontal long, vertical long, and short axis views. The patient underwent pharmacologic (Regadenoson) evaluation with a peak heart rate of 102 beats per minute (60 % percent predicted maximal heart rate) and a peak blood pressure of 119/82 mmHg. The patient was injected with 44.7 millicuries of technetium 99m Cardiolite and subsequently stress SPECT Cardiolite nuclear imaging was obtained in the horizontal long, vertical long, and short axis views. A gated Cardiolite study at peak stress was obtained. Interpretation: Rest and stress SPECT Cardiolite nuclear imaging status post realignment, normalization, and attenuation correction demonstrate a small area of subtle diminished myocardial perfusion/tracer uptake in the lateral apical segments without significant change between rest and stress. There is end systolic thickening and brightening. The gated Cardiolite study demonstrates myocardial thickening and inward wall motion. The reported LVEF is 65 %. Impression: 1. Rest and stress SPECT Cardiolite nuclear imaging demonstrate a small area of subtle diminished myocardial perfusion/tracer uptake in the lateral apical segments without significant change between rest and stress appearing compatible with the effects of soft tissue attenuation/artifact and/or physiologic apical thinning with no myocardial perfusion changes consider diagnostic for associated stress-induced myocardial ischemia or previous myocardial injury/infarction. 2. The gated Cardiolite study reports an LVEF of 65%. This note was generated with Elevaate software. It may contain incorrect words, spelling, and punctuation that were not noted in checking the note before signing. 03/23/18 0905 <Electronically signed by Yon Ruiz MD> Date Yon Ruiz MD CC: Ravindra Durham MD Date Dictated: 03/23/18901 Date Transcribed: 03/23/18901 State Pilot: PM Signed BEDSIDE GLUCOSE Collected: 03/23/2018 Status: F Source: [place] 6:36 AM [facility] [place] [place] REPOSITORY TYPE CODE TESTS RESULT OUT OF REFERENCE UNITS RANGE LAB L501.080 70-110 mg/dL High BEDSIDE GLU 333 Result Comment: MANAGEMENT OF PATIENT CARE PER NURSING PROTOCOL Performed By: #### L501.080 #### [facility] Point of Care [address] [place] [address] ECHOCARDIOGRAM COMPLETE Observed: 03/21/2018 Status: F Source: [place] 12:50 PM [facility] [place] [place] REPOSITORY [facility] Cardiovascular Services [address] [place] [address] Echo Complete 03/21/18 1048 MR#: [id number] Acct: [id number] Name: JOEL MATSON Rep #: [id number] : 1965 52 From: Yon Ruiz MD Attending Dr: Ravindra Durham MD, Chi Status: REG CLI Ordering Dr: Ravindra Durham MD Date: 03/21/18 Location: [facility] Sex: M C Admitted: Reason For Study: SOB Procedure This was a 2D Doppler, Color Flow transthoracic echocardiogram. The exam was of fair technical quality due to body habitus. The study was technically difficult. Exam performed in department. Left Ventricle Normal LV size. Left ventricular systolic function is normal. The estimated ejection fraction is 70 %. No evidence for diastolic dysfunction. No regional wall motion abnormalities noted. Right Ventricle Normal RV size. Normal systolic function. Atria Normal left atrium. Normal right atrium. No doppler evidence for ASD. Mitral Valve There is no mitral annular calcification. Normal mitral valve. Trivial mitral valve insufficiency. Tricuspid Valve Normal tricuspid valve. Trivial tricuspid valve insufficiency. Unable to estimate RV systolic pressure/pulmonary artery pressure due to technically difficult study. Aortic Valve The aortic valve is not well visualized. Pulmonic Valve The pulmonic valve is not well visualized. Great Vessels Normal sized aortic root. Pericardium/Pleural No pericardial effusion. MMode/2D Measurements AND Calculations LVIDd: 4.3 cm IVSd: 1.1 cm Ao root diam: 3.0 cm LVIDs: 3.0 cm LVPWd: 0.81 cm RVDd: 3.0 cm FS: 30.4 % LAV(MOD-bp): 37.3 ml EDV(MOD-sp4): 133.1 ml SV(MOD-sp4): 73.8 ml LAV(MOD-bp) Indexed: 16.6 ml/m2 ESV(MOD-sp4): 59.3 ml LAV(MOD-sp2): 35.1 ml EF(MOD-sp4): 55.5 % LAV(MOD-sp4): 35.4 ml LA A4 area: 15.8 cm2 RA A4 area: 10.7 cm2 Time Measurements MV dec time: 0.21 sec Doppler Measurements AND Calculations MV E max alfred: 117.6 cm/sec Lat Peak E' Alfred: 17.1 cm/sec Med Peak E' Alfred: 11.6 cm/sec MV A max alfred: 100.9 cm/sec E/E' lat: 6.9 E/E' med: 10.1 MV E/A: 1.2 Ao V2 max: 219.1 cm/sec LV V1 max: 120.2 cm/sec PA V2 max: 206.4 cm/sec Ao max P.2 mmHg LV V1 max P.8 mmHg Ao V2 mean: 165.6 cm/sec LV V1 mean P.4 mmHg Ao mean P.2 mmHg LV V1 mean: 85.2 cm/sec Ao V2 VTI: 41.2 cm LV V1 VTI: 24.8 cm Interpretation Summary The study was technically difficult. Left ventricular systolic function is normal. The estimated ejection fraction is 70 %. Trivial mitral valve insufficiency. Trivial tricuspid valve insufficiency. Unable to estimate RV systolic pressure/pulmonary artery pressure due to technically difficult study. No evidence for diastolic dysfunction. Ordering Physician: Ravindra Durham Referring Physician: Ravindra Durham Chi Performed By: Barbara Pinto RDCS 03/21/18 1249 Date Yon Ruiz MD CC: Ravindra Durham MD Date Dictated: 03/21/18 1048 Date Transcribed: 03/21/181248 State Pilot: Signed CHEST PA AND LATERAL Observed: 03/10/2018 Status: F Source: [place] 12:42 PM [facility] [place] [place] REPOSITORY [facility] Imaging Services [address] [place] [address] Chest PA and Lateral MR#: [id number] Acct: [id number] Name: JOEL MATSON Rep #: [id number] : 1965 M 52 From: Reagan Arriola DO PCP: Ravindra Durham MD, Chi Status: REG CLI Study: Chest PA and Lateral Date of Exam: 03/10/18 Exam# [id number] Ordering Dr: Ravindra Durham MD STUDY: X-RAY CHEST REASON FOR EXAM: Male, 52 years old. Chest pain. Diagnosed with pneumonia last week. Pain. TECHNIQUE: PA and lateral views of the chest. COMPARISON: March 03, 2018. FINDINGS: Lungs well-expanded. There is linear atelectasis in the left lung with blunting of the costophrenic angle and small pleural effusion. There is may represent residual pneumonia. Normal size heart. Normal mediastinum and lucy. Normal visualized pulmonary arteries. Normal visualized aortic arch and descending thoracic aorta. Normal visualized thoracic spine. Normal visualized ribs, clavicles, and shoulders. There is no demonstrated abnormality of the visualized soft tissue structures of the upper abdomen. RAD/Chest PA and Lateral IMPRESSION: Small pleural effusion and linear atelectasis at the left lung base. Question residual pneumonia. Electronically Signed: Reagan Arriola DO at 14:20 EDT Tel [phone], Service support , CC: Ravindra Durham MD State Pilot: Signed Observed: 03/03/2018 Status: F Source: [place] RESPIRATORY PANEL 12:40 PM [facility] [place] [place] MOLECULAR REPOSITORY RP PANEL ADENOVIRUS Not Detected HUMAN METAPHNEUMO Not Detected INFLUENZA A Not Detected INFLUENZA A (SUBTYPE H1) Not Detected INFLUENZA A (SUBTYPE H3) Not Detected INFLUENZA B Not Detected PARAINFLUENZA 1 Not Detected PARAINFLUENZA 2 Not Detected PARAINFLUENZA 3 Not Detected PARAINFLUENZA 4 Not Detected RHINOVIRUS Not Detected RSV A Not Detected RSV B Not Detected NAAT METHOD Testing was performed using nucleic acid amplification Performed By: #### M100.638 #### [facility] [place], [address] CHEST PA AND LATERAL Observed: 03/03/2018 Status: F Source: [place] 12:28 PM [facility] REPOSITORY [facility] Imaging Services [address] [place] [address] Chest PA and Lateral MR#: [id number] Acct: [id number] Name: JOEL MATSON Rep #: [id number] : 1965 M 52 From: Ryan Larsen MD PCP: Ravindra Durham MD, Chi Status: REG CLI Study: Chest PA and Lateral Date of Exam: 03/03/18 Exam# [id number] Ordering Dr: Ravindra Durham MD STUDY: X-RAY CHEST REASON FOR EXAM: Male, 52 years old. Short of breath x2 days. History of previous bronchitis. TECHNIQUE: Frontal and lateral views of the chest. COMPARISON: June 04, 2015. FINDINGS: There is no large region of alveolar opacification involving near completely the left lower lobe. There is obscuration of the left hemidiaphragm and blunting of left lateral left posterior costophrenic angles. There is no pneumothorax. Normal size heart. Normal mediastinum and lucy. Normal visualized pulmonary arteries. Normal visualized aortic arch and descending thoracic aorta. Normal visualized thoracic spine. Normal visualized ribs, clavicles, and shoulders. There is no demonstrated abnormality of the visualized soft tissue structures of the upper abdomen. RAD/Chest PA and Lateral IMPRESSION: Left lower lobe pneumonia with small to moderate-sized parapneumonic effusion. Electronically Signed: Ryan Larsen MD at 13:24 EDT , Service support , CC: Ravindra Durham MD State Pilot: Signed BASIC METABOLIC Collected: 03/03/2018 Status: F Source: [place] PROFILE (BMP) 10:11 AM [facility] [place], [place] REPOSITORY TYPE CODE TESTS RESULT OUT OF RANGE REFERENCE UNITS LAB L501.0100 74-106 mg/dL High GLU 387 Result Comment: Glucose result greater than or equal to 200 mg/dL suggests DIABETES MELLITUS per A.D.A. criteria. Please note revised GLUCOSE reference range effective 2017. LAB L501.1000 7-18 mg/dL High BUN 35 LAB L501.1100 0.70-1.30 mg/dL Normal CREAT,SERUM 1.01 Result Comment: The validity of the calculated GFR AND GFRAA in patients over 70 years has not been determined. Clinical correlation is essential. LAB L501.1110 >60 mL/min Normal EST GFR 83 Result Comment: Non- GFR Calc LAB L501.1115 >60 mL/min Normal EST GFR - AA 100 Result Comment: GFR Calc LAB L501.1300 10-20 RATIO High BUN/CRE 34.7 LAB L501.2200 8.5-10.1 mg/dL CA Normal 9.3 LAB L501.5300 136-145 mmol/L Low NA 132 LAB L501.5600 3.5-5.1 mmol/L K Normal 4.5 LAB L501.5900 98-107 mmol/L Low CL 95 LAB L501.6100 21.0-32.0 mmol/L Normal CO2 28.0 LAB L501.6200 5-15 Normal GAP 9 Performed By: #### L500.2500 #### [facility] [address] [place], [place], [id number] CBC W/DIFF, AUTOMATED Collected: 03/03/2018 Status: F Source: [place] 10:11 AM [facility] [place] [place] REPOSITORY TYPE CODE TESTS RESULT OUT OF RANGE REFERENCE UNITS LAB L100.1000 4.4-11.0 K/mm3 Normal WBC 8.7 LAB L100.1200 4.6-6.2 M/mm3 Normal RBC 4.78 LAB L100.1300 13.0-16.5 g/dl Normal HGB 13.5 LAB L100.1400 40-54 % Normal HCT 41.4 LAB L100.1500 80-94 fL Normal MCV 86.6 LAB L100.1600 27.0-32.0 pg Normal MCH 28.2 LAB L100.1700 32-36 g/gl Normal MCHC 32.6 LAB L100.1810 11.6-14.6 % Normal RDW CV 13.2 LAB L100.1820 35.1-43.9 fl Normal RDW SD 42.0 LAB L100.1900 150-450 K/mm3 Low PLT 91 LAB L100.2000 6.2-12.0 fl Normal MPV 12.0 LAB L100.2100 47-70 % High NEUT% 86.2 LAB L100.2200 19-41 % Low LY% 9.4 LAB L100.2300 0-10 % Normal MONO% 3.6 LAB L100.2400 0-5 % Normal EO% 0.6 LAB L100.2500 0-1 % Normal BASO% 0.1 LAB L100.2550 0.0-0.9 % Normal IM GRAN % 0.100 Result Comment: IG% - Immature Granulocytes (promyelocytes, myelocytes and metamyelocytes) > 1% indicates that a LEFT SHIFT is Present. LAB L100.2620 2.0-7.7 X10 3/uL Absolute Neut Normal 7.5 LAB L100.2720 0.83-4.51 X10 3/ul Low Absolute Lymph 0.81 LAB L100.7500 POLYCHROMASIA Normal 1+ Performed By: #### L100.0100 #### [facility] [address] [place], [address] CBC W/DIFF, AUTOMATED Collected: 01/12/2018 Status: F Source: [place] 4:44 PM [facility] [place] [place] REPOSITORY TYPE CODE TESTS RESULT OUT OF RANGE REFERENCE UNITS LAB L100.1000 4.4-11.0 K/mm3 Normal WBC 6.9 LAB L100.1200 4.6-6.2 M/mm3 Normal RBC 4.90 LAB L100.1300 13.0-16.5 g/dl Normal HGB 14.1 LAB L100.1400 40-54 % Normal HCT 42.7 LAB L100.1500 80-94 fL Normal MCV 87.1 LAB L100.1600 27.0-32.0 pg Normal MCH 28.8 LAB L100.1700 32-36 g/gl Normal MCHC 33.0 LAB L100.1810 11.6-14.6 % Normal RDW CV 13.6 LAB L100.1820 35.1-43.9 fl Normal RDW SD 43.3 LAB L100.1900 150-450 K/mm3 Low PLT 109 LAB L100.2000 6.2-12.0 fl Normal MPV 11.5 LAB L100.2100 47-70 % Normal NEUT% 59.2 LAB L100.2200 19-41 % Normal LY% 31.7 LAB L100.2300 0-10 % Normal MONO% 7.3 LAB L100.2400 0-5 % Normal EO% 1.2 LAB L100.2500 0-1 % Normal BASO% 0.3 LAB L100.2550 0.0-0.9 % Normal IM GRAN % 0.300 Result Comment: IG% - Immature Granulocytes (promyelocytes, myelocytes and metamyelocytes) > 1% indicates that a LEFT SHIFT is Present. LAB L100.2620 2.0-7.7 X10 3/uL Normal Absolute Neut 4.1 LAB L100.2720 0.83-4.51 X10 3/ul Normal Absolute Lymph 2.18 Performed By: #### L100.0100 #### [facility] [address] [place], [address] COMPREHENSIVE METABOLIC Collected: 01/12/2018 Status: F Source: [facility] 4:44 PM [facility] [place] [place] REPOSITORY TYPE CODE TESTS RESULT OUT OF RANGE REFERENCE UNITS LAB L501.0100 74-106 mg/dL High GLU 162 Result Comment: Fasting Glucose result greater than or equal to 126 mg/dL suggests DIABETES MELLITUS per A.D.A. criteria. Please note revised GLUCOSE reference range effective 2017. LAB L501.1000 7-18 mg/dL High BUN 25 LAB L501.1100 0.70-1.30 mg/dL Normal CREAT,SERUM 0.83 Result Comment: The validity of the calculated GFR AND GFRAA in patients over 70 years has not been determined. Clinical correlation is essential. LAB L501.1110 >60 mL/min Normal EST GFR 104 Result Comment: Non- GFR Calc LAB L501.1115 >60 mL/min Normal EST GFR - AA 126 Result Comment: GFR Calc LAB L501.1300 10-20 RATIO High BUN/CRE 30.3 LAB L501.1500 6.4-8.2 g/dL T Normal PROT 7.5 LAB L501.1800 3.2-5.0 g/dL Normal ALB 3.7 LAB L501.1950 2.2-4.2 g/dL Normal GLOB 3.8 LAB L501.2000 0.9-2.4 RATIO Normal A/G 1.0 LAB L501.2200 8.5-10.1 mg/dL CA Normal 9.1 LAB L501.4100 15-37 U/L Normal AST 31 Result Comment: Slight Hemolysis, Result may be falsely increased. LAB L501.4305 45-117 U/L Normal ALK P 110 LAB L501.4405 16-61 U/L Normal ALT 43 Result Comment: Please note revised ALT reference range effective 2017. LAB L501.4600 0.20-1.00 mg/dL High T BILI 1.20 LAB L501.5300 136-145 mmol/L Normal NA 138 LAB L501.5600 3.5-5.1 mmol/L Normal K 4.0 Result Comment: Slight Hemolysis, Result may be falsely increased. LAB L501.5900 98-107 mmol/L Normal CL 104 LAB L501.6100 21.0-32.0 mmol/L Normal CO2 25.0 LAB L501.6200 5-15 Normal 9 GAP Performed By: #### L500.4050, L501.9520 #### [facility] [address] [place], [place], [id number] THYROID STIM HORMONE Collected: 01/12/2018 Status: F Source: KATHERINE (TSH) 4:44 PM [facility] [place], [place] REPOSITORY TYPE CODE TESTS RESULT OUT OF RANGE REFERENCE UNITS LAB L501.9520 0.358-3.74 uIU/mL Normal TSH 0.71 Performed By: #### L500.4050, L501.9520 #### [facility] [address], [address] TESTOSTERONE, SERUM TOTAL Collected: 01/12/2018 Status: F Source: KATHERINE 4:44 PM [facility] [place] [place] REPOSITORY TYPE CODE TESTS RESULT OUT OF REFERENCE UNITS RANGE LAB L509.3000 ng/dL Testosterone Normal 287.80 Result Comment: NORMAL REFERENCE RANGES MALE AGE <50 123.06 - 813.86 ng/dL MALE AGE >50 89.98 - 780.10 ng/dL FEMALE PREMENOPAUSE AGE 21 - 60 9.01 - 47.94 ng/dL FEMALE POSTMENOPAUSE AGE 45 - 89 <7.00 - 45.62 ng/dL REFERENCE RANGE AND METHODOLOGY CHANGED 10/26/2017 Performed By: #### L509.3000 #### [facility] [place], [address] ALLERGIES ALLERGIES DATE TYPE / CODE NAME / CODE REACTION SEVERITY SOURCE 04/09/2018 Drug No Known Unknown [facility] Allergy/416 Allergies/L75850 Hospital 470401(SNOM 0388(RXNORM) Repository ED CT) Drug NO KNOWN [facility] Class/06281 ALLERGIES Other [place] 1003(SNOMED Repository CT) NG/[id number] NO KNOWN [facility] 6(SNOMED ALLERGIES Health [facility] CT) Repository ENCOUNTERS ENCOUNTERS ADMIT/DISCHARGE ACCOUNT NUMBER ADMITTING ENCOUNTER LOCATION SOURCE CLASS 10/17/2018 [id number] [facility] ding:POLAB3 Repository 08/21/2018 [id number] [facility] ding:RAD Repository 07/19/2018 [id number] [facility] ding:POLAB3 Repository 06/19/2018 [id number] [facility] ding:RAD Repository 04/28/2018 [id number] [facility]ulatory [facility] ding:LABSPEC Repository 04/26/2018 [id number] [facility] ding:CT Repository 04/26/2018 [id number] [facility] ding:POLAB3 Repository 04/21/2018 [id number] [facility] ding:PSN Repository 04/20/2018 [id number] [facility] ding:POLAB3 Repository 04/09/2018/04/11/20 [id number] Ambulatory BMSBuilding: [place] 18 [facility] Repository 04/09/2018 [id number] [place], [place] Ambulatory BMSBuilding: [place] BMS.Critical access hospital Repository 04/09/2018/04/11/20 [id number] [place] Inpatient [place] ding:PCURoom Repository : [id number]: 1 03/28/2018 [id number] Ambulatory BMSBuilding: [place] BMS.[facility] Repository 03/24/2018/04/04/20 [id number] MIGUEL, Inpatient [place] 18 [facility] Other [place] Repository 03/24/2018/04/04/20 [id number] HARMANNILSABATSHEVA, Inpatient [facility] 18 [facility] MEDICAL Repository CENTERBuildi nARoom: 5211Bed: 03/24/2018/03/24/20 [id number] Emergency [address] ding:ED Repository 03/23/2018 [id number] Ambulatory [facility] ding:CVS Repository 03/23/2018 [id number] Ambulatory BMSBuilding: [facility] Repository 03/21/2018 [id number] Ambulatory [facility] ding:CVS Repository 03/21/2018 [id number] Ambulatory BMSBuilding: [facility] Repository 03/10/2018 [id number] Ambulatory [facility] ding:RAD Repository 03/03/2018 [id number] [facility]ulatory [facility] ding:POLAB3 Repository 01/12/2018 [id number] [facility] ding:POLAB3 Repository PAYERS PAYERS ENCOUNTER GUARANTOR PAYER SUBSCRIBER SOURCE 10/17/2018 JOEL D Primary JOEL D [place] [id number] N Insurance:ANTHEMPolic HISERDOB: Community [place] y Number: [id number] [id number] Repository [address]Jng: 330) Date:3247-49-46VT [phone] ([facility] [address]KGDVHAP, [place] [address]QZ: 10/17/2018 Secondary NOT GIVENUNK [place] Insurance:SELF PAY [facility] Number: Effective Repository Date:2018-10-17 08/21/2018 JOEL D Primary JOEL D [place] [id number] N Insurance:ANTHEMPolic HISERDOB: [facility] [place] y Number: [id number], [place] [id number] Repository [address]Lig: (330) Date:2802-85-89SF [phone] () [place] L[place] [address]XS: 08/21/2018 Secondary NOT GIVENUNK [place] Insurance:SELF PAY [facility] Number: Effective Repository Date:2018-08-21 07/19/2018 JOEL D Primary JOEL D [place] [id number] N Insurance:ANTHEMPolic HISERDOB: Community [place] y Number: [id number], [place] [id number] Repository [address]Noh: (330) Date:1309-09-93FR [phone] () N[place] [address]JE: 07/19/2018 Secondary NOT GIVENUNK [place] Insurance:SELF PAY [facility] Number: Effective Repository Date:2018-07-19 06/19/2018 JOEL D Primary JOEL D [place] [id number] N Insurance:ANTHEMPolic HISERDOB: Community [place] y Number: [id number], [place] [id number] Repository [address]Vop: (330) Date:5746-36-09SB [phone] () 000828NOIHAGSNATE JACOBSEN [address]VT: 06/19/2018 Secondary NOT GIVENUNK [place] Insurance:SELF PAY [facility] Number: Effective Repository Date:2018-06-19 04/28/2018 JOEL D Primary JOEL D Katherien [id number] N Insurance:ANTHEMPolic HISERDOB: Community [place] y Number: [id number], [place] [id number] Repository [address]Rmv: (330) Date:4527-28-43OZ [phone] () 940011SLJAYETNATE JACOBSEN [address]FC: 04/28/2018 Secondary NOT GIVENUNK [place] Insurance:SELF PAY [facility] Number: Effective Repository Date:2018-04-28 04/26/2018 JOEL D Primary JOEL D [place] [id number] N Insurance:ANTHEMPolic HISERDOB: Community [place] y Number: [id number], [place] [id number] Repository [address]Bds: (330) Date:9108-70-68XO [phone] () [address] [place] [address] 199[address]CB: 04/26/2018 Secondary NOT GIVENUNK [place] Insurance:SELF PAY [facility] Number: Effective Repository Date:2018-04-26 04/26/2018 JOEL D Primary JOEL D [place] [id number] N Insurance:ANTHEMPolic HISERDOB: Community [place] y Number: [id number], [place] [id number] Repository [address]Zxy: (330) Date:3657-60-02BM [phone] () [address] [place] [address]FX: 04/26/2018 Secondary NOT GIVENUNK [place] Insurance:SELF PAY [facility] Number: Effective Repository Date:2018-04-26 04/21/2018 JOEL D Primary JOEL D [place] [id number] N Insurance:ANTHEMPolic HISERDOB: Community [place] y Number: [id number], [place] [id number] Repository [address]Isy: (330) Date:2269-04-77AJ [phone] () [address]60[address]AMKYJHB, [place] [address]FJ: 04/21/2018 Secondary NOT GIVENUNK [place] Insurance:SELF PAY [facility] Number: Effective Repository Date:2018-04-18 04/20/2018 JOEL D Primary JOEL D [place] [id number] N Insurance:ANTHEMPolic HISERDOB: Community [place] y Number: [id number], [place] [id number] Repository [address]Abl: (330) Date:5631-38-28DT [phone] () 695654WMVLSPS, [place] [address]QY: 04/20/2018 Secondary NOT GIVENUNK [place] Insurance:SELF PAY [facility] Number: Effective Repository Date:2018-04-20 04/09/2018 JOEL D Primary JOEL D [place] [id number] N Insurance:ANTHEMPolic HISERDOB: Community [place] y Number: [id number], [place] [id number] Repository [address]Fas: (330) Date:7869-98-59IO [phone] () 2186[address]PCHXCIA, [place] [address]KQ: 04/09/2018 Secondary NOT GIVENUNK [place] Insurance:SELF PAY [facility] Number: Effective Repository Date:2018-04-09 04/09/2018 JOEL D Primary JOEL D [place] [id number] N Insurance:ANTHEMPolic HISERDOB: Community [place] y Number: [id number], [place] [id number] Repository [address]Pqu: (330) Date:1279-37-97YI [phone] () [address]57399YJMVDGJ, [place] [address]NB: 04/09/2018 Secondary NOT GIVENUNK [place] Insurance:SELF PAY [facility] Number: Effective Repository Date:2018-04-09 04/09/2018 JOEL D Primary JOEL D [place] [id number] N Insurance:ANTHEMPolic HISERDOB: Community [place] Number: [id number], [place] [id number] Repository [address]Yjb: (330) Date:9745-33-21VP [phone] () 532[address]OROYUEI, [place] [address]EX: 04/09/2018 Secondary NOT GIVENUNK [place] Insurance:SELF PAY [facility] Number: Effective Repository Date:2018-04-09 03/28/2018 JOEL D Primary JOEL D [place] [id number] N Insurance:ANTHEMPolic HISERDOB: Community [place] y Number: [id number], [place] [id number] Repository [address]Gzw: (330) Date:6852-00-64OT [phone] () 277248UZGQZLG, [place] [address]WY: 03/28/2018 Secondary NOT GIVENUNK [place] Insurance:SELF PAY [facility] Number: Effective Repository Date:2018-03-23 03/24/2018 JOEL Primary JOEL [facility] HISERDOB: Insurance:BLUE ACCESS [facility]: [id number] Repository [place] [id number] [place] Date: [address]Gwr: () 03/24/2018 JOEL D Primary JOEL D [place] [id number] N Insurance:ANTHEMPolic HISERDOB: Community [place] y Number: [id number], [place] [id number] Repository [address]Bbf: (330) Date:4762-41-71TP [phone] () 750480DLTYTGV, [place] [address]GZ: 03/24/2018 Secondary NOT GIVENUNK [place] Insurance:SELF PAY [facility] Number: Effective Repository Date:2018-03-24 03/23/2018 JOEL D Primary JOEL D [place] [id number] N Insurance:ANTHEMPolic HISERDOB: Community [place] Number: [id number], [place] [id number] Repository [address]Gkb: (330) Date:3815-69-97KF [phone] () [address]19[address]LDUUMBF, [place] [address]XW: 03/23/2018 Secondary NOT GIVENUNK [place] Insurance:SELF PAY [facility] Number: Effective Repository Date:2018-03-10 03/23/2018 JOEL D Primary JOEL D [place] [id number] N Insurance:ANTHEMPolic HISERDOB: Community [place] y Number: [id number], [place] [id number] Repository [address]Xrv: (330) Date:2018-86-46WV [phone] () NATE LUEVANO [address]BY: 03/23/2018 Secondary NOT GIVENUNK [place] Insurance:SELF PAY [facility] Number: Effective Repository Date:2018-03-23 03/21/2018 JOEL D Primary JOEL D [place] [id number] N Insurance:ANTHEMPolic HISERDOB: Community [place] y Number: [id number], [place] [id number] Repository [address]Msa: (330) Date:9486-55-69XS [phone] () ANTE LUEVANO [address]HE: 03/21/2018 Secondary NOT GIVENUNK [place] Insurance:SELF PAY [facility] Number: Effective Repository Date:2018-03-13 03/21/2018 JOEL D Primary JOEL D [place] [id number] N Insurance:ANTHEMPolic HISERDOB: Community [place] y Number: [id number], [place] [id number] Repository [address]Ier: (330) Date:6866-45-63ZR [phone] () NATE LUEVANO [address]FR: 03/21/2018 Secondary NOT GIVENUNK [place] Insurance:SELF PAY [facility] Number: Effective Repository Date:2018-03-21 03/10/2018 JOEL D Primary JOEL D [place] [id number] N Insurance:ANTHEMPolic HISERDOB: Community [place] Number: [id number], [place] [id number] Repository [address]Bwo: (330) Date:1550-77-63YG [phone] () NATE LUEVANO [address]GD: 03/10/2018 Secondary NOT GIVENUNK [place] Insurance:SELF PAY [facility] Number: Effective Repository Date:2018-03-10 03/03/2018 JOEL D Primary JOEL D [place] [id number] N Insurance:ANTHEMPolic HISERDOB: Community [place] y Number: [id number], [place] [id number] Repository [address]Xfj: 330) Date:0033-76-19JO [phone] () [address] [place] [address]BI: 03/03/2018 Secondary NOT GIVENUNK [place] Insurance:SELF PAY [facility] Number: Effective Repository Date:2018-03-03 01/12/2018 Joel [id number] Primary Joel [place] N [place] Insurance:ANTHEMPolic HiserDOB: [place], [place] y Number: [id number] [address]Ume: [id number] [address]ository [phone] () Date:3490-49-13FL [address]KYBPFBM, [place] [address]NE: 01/12/2018 Secondary NOT GIVENUNK [place] Insurance:SELF PAY [facility] Number: Effective Repository Date:2018-01-12
== END ==
PROVIDERS: Family Provider Family Medicine Geriatric Medicine; PCP Family Medicine Geriatric Medicine; Visit Provider Family Medicine Geriatric Medicine
DX: I10 Essential (primary) hypertension (principal); E11.9 Type 2 diabetes mellitus without complications; E23.6 Other disorders of pituitary gland
CPT/HCPCS: 36415; 80053; 84403; 84443; 85025

== ENCOUNTER → 2019-01-16 15:54 | Outpatient (CLI) | payer BC, SELFPAY ==
[2019-01-16 16:48] LABS: Absolute Lymphocyte Count 2.22 X10^3/ul (0.83-4.51); Absolute Neutrophil Count 4.6 X10^3/uL (2.0-7.7); Basophil# 0.03 X10^3/uL; Basophil% 0.4 % (0-1); Eosinophil# 0.18 X10^3/uL; Eosinophils% 2.4 % (0-5); Hematocrit 43.1 % (40-54); Hemoglobin 13.8 g/dl (13.0-16.5); Lymphocyte # 2.22 X10^3/ul (4.0); Mean Corpuscular Hgb 27.5 pg (27.0-32.0); Mean Platelet Vol. 11.5 fl (6.2-12.0); Monocyte# 0.39 X10^3/uL; Monocyte% 5.3 % (0-10); Neutrophil # 4.56 X10^3/uL (2.7-7.7); Neutrophil % 61.6 % (47-70); Platelet Count 112 K/mm3 (150-450); RBC Distribution Width CV 13.7 % (11.6-14.6); RBC Distribution Width SD 42.5 fl (35.1-43.9); Red Blood Count 5.01 M/mm3 (4.6-6.2); White Blood Count 7.4 K/mm3 (4.4-11.0)
[2019-01-16 17:04] LABS: POSITIVE COUNT NO; POSITIVE DIFFERENTIAL NO; POSITIVE MORPHOLOGY NO
[2019-01-16 17:21] LABS: AST(SGOT) 30 U/L (15-37); Alanine Aminotransfer ALT/SGPT 47 U/L (16-61); Albumin, Serum 3.7 g/dL (3.2-5.0); Alkaline Phosphatase 131 U/L (45-117); Anion Gap 12 (5-15); BUN 24 mg/dL (7-18); BUN/Creat Ratio 30.7 RATIO (10-20); Calcium,Total 8.9 mg/dL (8.5-10.1); Chloride 99 mmol/L (98-107); Creatinine, Serum 0.78 mg/dL (0.70-1.30); EST Glomerular Filtration Rate 111 mL/min (>60); Est Glom Filt Rate - Afr Amer 134 mL/min (>60); Globulin 3.8 g/dL (2.2-4.2); Glucose 265 mg/dL (74-106); Potassium 4.3 mmol/L (3.5-5.1); Protein, Total 7.5 g/dL (6.4-8.2); Sodium Level 135 mmol/L (136-145); Thyroid Stim Hormone (TSH) 0.99 uIU/mL (0.358-3.74)
== END ==
PROVIDERS: Family Provider Family Medicine Geriatric Medicine; PCP Family Medicine Geriatric Medicine; Visit Provider Family Medicine Geriatric Medicine
DX: I10 Essential (primary) hypertension (principal); E11.9 Type 2 diabetes mellitus without complications
CPT/HCPCS: 36415; 80053; 84443; 85025

== ENCOUNTER → 2019-03-13 | Outpatient (CLI) | payer BC, SELFPAY | END | disposition home or self-care (01) | LOC: PSN 12:42 | PROVIDERS: Family Provider Family Medicine Geriatric Medicine; PCP Family Medicine Geriatric Medicine; Referring Provider Family Medicine Geriatric Medicine; Visit Provider Family Medicine Geriatric Medicine | DX: R50.9 Fever, unspecified (principal) | CPT/HCPCS: 87633 ==

== ENCOUNTER → 2019-04-24 | Outpatient (CLI) | payer BC, SELFPAY ==
[2019-04-24 17:21] LABS: Absolute Lymphocyte Count 1.92 X10^3/ul (0.83-4.51); Absolute Neutrophil Count 4.2 X10^3/uL (2.0-7.7); Basophil# 0.02 X10^3/uL; Basophil% 0.3 % (0-1); Eosinophil# 0.12 X10^3/uL; Eosinophils% 1.8 % (0-5); Hematocrit 41.5 % (40-54); Hemoglobin 13.9 g/dl (13.0-16.5); Lymphocyte # 1.92 X10^3/ul (4.0); Lymphocyte % 28.7 % (19-41); Mean Corp Hgb Conc 33.5 g/gl (32-36); Mean Corpuscular Hgb 28.5 pg (27.0-32.0); Mean Corpuscular Volume 85.2 fL (80-94); Mean Platelet Vol. 11.5 fl (6.2-12.0); Monocyte# 0.41 X10^3/uL; Monocyte% 6.1 % (0-10); Neutrophil # 4.19 X10^3/uL (2.7-7.7); Neutrophil % 62.8 % (47-70); Platelet Count 104 K/mm3 (150-450); RBC Distribution Width CV 13.7 % (11.6-14.6); RBC Distribution Width SD 42.6 fl (35.1-43.9); Red Blood Count 4.87 M/mm3 (4.6-6.2); White Blood Count 6.7 K/mm3 (4.4-11.0)
[2019-04-24 17:24] LABS: POSITIVE COUNT NO; POSITIVE DIFFERENTIAL NO; POSITIVE MORPHOLOGY NO
[2019-04-24 17:36] LABS: AST(SGOT) 36 U/L (15-37); Alanine Aminotransfer ALT/SGPT 57 U/L (16-61); Albumin, Serum 3.6 g/dL (3.2-5.0); Alkaline Phosphatase 133 U/L (45-117); Anion Gap 9 (5-15); BUN 21 mg/dL (7-18); BUN/Creat Ratio 24.5 RATIO (10-20); Calcium,Total 9.3 mg/dL (8.5-10.1); Chloride 99 mmol/L (98-107); Creatinine, Serum 0.86 mg/dL (0.70-1.30); EST Glomerular Filtration Rate 100 mL/min (>60); Est Glom Filt Rate - Afr Amer 121 mL/min (>60); Globulin 3.5 g/dL (2.2-4.2); Glucose 292 mg/dL (74-106); Protein, Total 7.1 g/dL (6.4-8.2); Sodium Level 135 mmol/L (136-145); Thyroid Stim Hormone (TSH) 0.66 uIU/mL (0.358-3.74)
== END | disposition home or self-care (01) ==
LOC: POLAB3 09:18
PROVIDERS: Visit Provider Family Medicine Geriatric Medicine
DX: E11.9 Type 2 diabetes mellitus without complications (principal); E23.6 Other disorders of pituitary gland; I10 Essential (primary) hypertension
CPT/HCPCS: 36415; 80053; 84403; 84443; 85025

== ENCOUNTER → 2019-07-11 | Outpatient (CLI) | payer BC, SELFPAY ==
[2019-07-11 10:09] LABS: Vitamin D,25 Hydroxy 16.6 ng/mL (29.95-100.01)
[2019-07-11 10:10] LABS: 24HR. Urine Creatinine 1.34 g/24 HR (0.90-2.10)
[2019-07-11 10:11] LABS: ALB/GLOB Ratio 0.9 RATIO (0.9-2.4); AST(SGOT) 38 U/L (15-37); Alanine Aminotransfer ALT/SGPT 52 U/L (16-61); Albumin, Serum 3.7 g/dL (3.2-5.0); Alkaline Phosphatase 159 U/L (45-117); Anion Gap 7 (5-15); BUN 21 mg/dL (7-18); BUN/Creat Ratio 24.3 RATIO (10-20); Calcium,Total 9.9 mg/dL (8.5-10.1); Chloride 98 mmol/L (98-107); Cholesterol 198 mg/dL (200); Creatinine, Serum 0.86 mg/dL (0.70-1.30); EST Glomerular Filtration Rate 99 mL/min (>60); Est Glom Filt Rate - Afr Amer 119 mL/min (>60); Globulin 4.3 g/dL (2.2-4.2); Glucose 360 mg/dL (74-106); High Density Lipoprotein 43 mg/dL; Potassium 4.4 mmol/L (3.5-5.1); Sodium Level 132 mmol/L (136-145); Triglycerides 576 mg/dL
[2019-07-11 10:25] LABS: Microalbumin:Creatinine Ratio 558.7 mg/g CRE (<30 mg/g CRE)
[2019-07-14 07:06] LABS: Cortisol, Free 24Ur 56 ug/24 hr (5-64)
[2019-07-14 14:04] LABS: Cortisol, Urinary Free 20 ug/L (Undefined)
== END | disposition home or self-care (01) ==
LOC: LAB 08:17
PROVIDERS: Family Provider Family Medicine Geriatric Medicine; PCP Family Medicine Geriatric Medicine; Referring Provider Internal Medicine Endocrinology, Diabetes & Metabolism; Visit Provider Internal Medicine Endocrinology, Diabetes & Metabolism
DX: E11.9 Type 2 diabetes mellitus without complications (principal)
CPT/HCPCS: 80053; 80061; 82043; 82306; 82530; 82533; 82570; 84681

== ENCOUNTER → 2019-07-28 | Outpatient (CLI) | payer BC, SELFPAY ==
[2019-07-28 08:44] LABS: 24HR. Urine Creatinine 1.26 g/24 HR (0.90-2.10)
[2019-08-02 15:10] LABS: Cortisol, Free 24Ur 62 ug/24 hr (5-64); Cortisol, Urinary Free 28 ug/L (Undefined)
== END | disposition home or self-care (01) ==
PROVIDERS: Family Provider Family Medicine Geriatric Medicine; PCP Family Medicine Geriatric Medicine; Referring Provider Internal Medicine Endocrinology, Diabetes & Metabolism; Visit Provider Internal Medicine Endocrinology, Diabetes & Metabolism
DX: R94.7 Abnormal results of other endocrine function studies (principal)
CPT/HCPCS: 82530; 82570

== ENCOUNTER → 2019-11-15 15:45 | Outpatient (CLI) | payer BC, SELFPAY ==
[2019-11-15 16:40] LABS: Absolute Lymphocyte Count 1.97 X10^3/uL (0.83-4.51); Absolute Neutrophil Count 4.2 X10^3/uL (2.0-7.7); Basophil# 0.01 X10^3/uL; Basophil% 0.1 % (0-1); Eosinophil# 0.17 X10^3/uL; Eosinophils% 2.5 % (0-5); Hematocrit 40.5 % (40-54); Hemoglobin 13.1 g/dL (13.0-16.5); Lymphocyte # 1.97 X10^3/ul (4.0); Lymphocyte % 28.5 % (19-41); Mean Corp Hgb Conc 32.3 g/dL (32-36); Mean Corpuscular Hgb 28.1 pg (27.0-32.0); Mean Corpuscular Volume 86.7 fL (80-94); Mean Platelet Vol. 10.8 fl (6.2-12.0); Monocyte# 0.57 X10^3/uL; Monocyte% 8.2 % (0-10); NRBC Flagged by Analyzer 0 % (0-5); Neutrophil # 4.16 X10^3/uL (2.7-7.7); Neutrophil % 60.3 % (47-70); POSITIVE COUNT YES; Platelet Count 89 K/mm3 (150-450); RBC Distribution Width SD 40.9 fl (35.1-43.9); Red Blood Count 4.67 M/mm3 (4.6-6.2); White Blood Count 6.9 K/mm3 (4.4-11.0)
[2019-11-15 16:46] LABS: Differential Indicated SCAN CRITERIA MET
[2019-11-15 16:56] LABS: Vitamin D,25 Hydroxy 33.7 ng/mL (29.95-100.01)
[2019-11-15 17:09] LABS: AST(SGOT) 27 U/L (15-37); Alanine Aminotransfer ALT/SGPT 37 U/L (16-61); Albumin, Serum 3.6 g/dL (3.2-5.0); Alkaline Phosphatase 123 U/L (45-117); Anion Gap 5 (5-15); BUN 21 mg/dL (7-18); BUN/Creat Ratio 22.2 RATIO (10-20); Calcium,Total 9.3 mg/dL (8.5-10.1); Chloride 104 mmol/L (98-107); Creatinine, Serum 0.94 mg/dL (0.70-1.30); EST Glomerular Filtration Rate 89 mL/min (>60); Est Glom Filt Rate - Afr Amer 108 mL/min (>60); Globulin 3.6 g/dL (2.2-4.2); Glucose 127 mg/dL (74-106); Protein, Total 7.2 g/dL (6.4-8.2); Sodium Level 137 mmol/L (136-145); Thyroid Stim Hormone (TSH) 0.75 uIU/mL (0.358-3.74)
[2019-11-15 17:18] LABS: Platelet Estimate MOD DEC (ADEQ); Red Cell Morphology NORM C+C NORMAL (NORM C&C)
== END ==
PROVIDERS: Family Provider Family Medicine Geriatric Medicine; PCP Family Medicine Geriatric Medicine; Visit Provider Family Medicine Geriatric Medicine
DX: I10 Essential (primary) hypertension (principal); E11.9 Type 2 diabetes mellitus without complications; E55.9 Vitamin D deficiency, unspecified
CPT/HCPCS: 36415; 80053; 82306; 84443; 85025

== ENCOUNTER → 2020-04-29 15:37 | Outpatient (CLI) | payer BC, SELFPAY ==
[2020-04-29 17:42] LABS: Absolute Lymphocyte Count 1.94 X10^3/uL (0.83-4.51); Absolute Neutrophil Count 3.5 X10^3/uL (2.0-7.7); Basophil# 0.03 X10^3/uL; Basophil% 0.5 % (0-1); Eosinophil# 0.14 X10^3/uL; Eosinophils% 2.3 % (0-5); Hematocrit 47.7 % (40-54); Lymphocyte # 1.94 X10^3/ul (4.0); Mean Corp Hgb Conc 31.4 g/dL (32-36); Mean Corpuscular Hgb 27.8 pg (27.0-32.0); Mean Corpuscular Volume 88.5 fL (80-94); Monocyte# 0.45 X10^3/uL; Monocyte% 7.4 % (0-10); NRBC Flagged by Analyzer 0 % (0-5); Neutrophil # 3.47 X10^3/uL (2.7-7.7); Neutrophil % 57.3 % (47-70); Platelet Count 120 K/mm3 (150-450); Red Blood Count 5.39 M/mm3 (4.6-6.2); White Blood Count 6.1 K/mm3 (4.4-11.0)
[2020-04-29 18:25] LABS: ALB/GLOB Ratio 0.9 RATIO (0.9-2.4); AST(SGOT) 34 U/L (15-37); Alanine Aminotransfer ALT/SGPT 48 U/L (16-61); Albumin, Serum 3.7 g/dL (3.2-5.0); Alkaline Phosphatase 139 U/L (45-117); Anion Gap 9 (5-15); BUN 20 mg/dL (7-18); BUN/Creat Ratio 23.3 RATIO (10-20); Calcium,Total 9.7 mg/dL (8.5-10.1); Chloride 100 mmol/L (98-107); Creatinine, Serum 0.86 mg/dL (0.70-1.30); EST Glomerular Filtration Rate 99 mL/min (>60); Est Glom Filt Rate - Afr Amer 120 mL/min (>60); Globulin 4.1 g/dL (2.2-4.2); Glucose 283 mg/dL (74-106); Potassium 4.1 mmol/L (3.5-5.1); Protein, Total 7.8 g/dL (6.4-8.2); Sodium Level 135 mmol/L (136-145); Thyroid Stim Hormone (TSH) 0.92 uIU/mL (0.358-3.74)
== END ==
PROVIDERS: PCP Family Medicine Geriatric Medicine; Referring Provider Family Medicine Geriatric Medicine; Visit Provider Family Medicine Geriatric Medicine
DX: E11.9 Type 2 diabetes mellitus without complications (principal); I10 Essential (primary) hypertension
CPT/HCPCS: 36415; 80053; 84443; 85025

== ENCOUNTER → 2020-07-29 15:34 | Outpatient (CLI) | payer BC, SELFPAY ==
--- NOTE | 2020-07-29 16:33 | RAD_ITS ---
HISTORY: right right pain after falling on deck 1 week ago EXAMINATION/TECHNIQUE: XR Ribs Unilateral W/ PA Chest Min 3 Views: PA chest and 4 views of the right ribs COMPARISON: Chest x-ray from August 21, 2018 FINDINGS: LINES/DEVICES: None. LUNGS: No consolidation, edema or effusion. No pneumothorax. MEDIASTINUM AND CARDIOVASCULAR STRUCTURES: Cardiac silhouette not enlarged. Central airways and mediastinal contour are unremarkable. RIBS AND OSSEOUS STRUCTURES: Unremarkable. No evidence of displaced rib fractures. RAD/Ribs Uni Min 3V w/PA Chest IMPRESSION: Negative chest and ribs series. at 0509 Reported and signed by: Aníbal Blanco MD Electronically Signed: Aníbal Blanco MD at 5:08 EDT Tel , Service support ,
[2020-07-29 17:48] LABS: Absolute Lymphocyte Count 2.05 X10^3/uL (0.83-4.51); Absolute Neutrophil Count 4.5 X10^3/uL (2.0-7.7); Basophil# 0.05 X10^3/uL; Basophil% 0.7 % (0-1); Eosinophils% 3.9 % (0-5); Hematocrit 41.3 % (40-54); Lymphocyte # 2.05 X10^3/ul (4.0); Lymphocyte % 26.7 % (19-41); Mean Corp Hgb Conc 31.5 g/dL (32-36); Mean Corpuscular Hgb 28.1 pg (27.0-32.0); Mean Corpuscular Volume 89.4 fL (80-94); Mean Platelet Vol. 11.3 fl (6.2-12.0); Monocyte# 0.63 X10^3/uL; Monocyte% 8.2 % (0-10); NRBC Flagged by Analyzer 0 % (0-5); Neutrophil # 4.53 X10^3/uL (2.7-7.7); Neutrophil % 59.1 % (47-70); Platelet Count 122 K/mm3 (150-450); RBC Distribution Width CV 13.5 % (11.6-14.6); Red Blood Count 4.62 M/mm3 (4.6-6.2); White Blood Count 7.7 K/mm3 (4.4-11.0)
[2020-07-29 18:04] LABS: AST(SGOT) 29 U/L (15-37); Alanine Aminotransfer ALT/SGPT 37 U/L (16-61); Albumin, Serum 3.9 g/dL (3.2-5.0); Alkaline Phosphatase 205 U/L (45-117); Anion Gap 8 (5-15); BUN 39 mg/dL (7-18); BUN/Creat Ratio 28.3 RATIO (10-20); Calcium,Total 9.8 mg/dL (8.5-10.1); Chloride 100 mmol/L (98-107); Creatinine, Serum 1.38 mg/dL (0.70-1.30); EST Glomerular Filtration Rate 57 mL/min (>60); Est Glom Filt Rate - Afr Amer 69 mL/min (>60); Globulin 3.8 g/dL (2.2-4.2); Glucose 270 mg/dL (74-106); Potassium 4.4 mmol/L (3.5-5.1); Protein, Total 7.7 g/dL (6.4-8.2); Sodium Level 135 mmol/L (136-145); Thyroid Stim Hormone (TSH) 1.33 uIU/mL (0.358-3.74)
== END ==
LOC: POLAB3 15:35 → RAD 16:31
PROVIDERS: PCP Family Medicine Geriatric Medicine; Referring Provider Family Medicine Geriatric Medicine; Visit Provider Family Medicine Geriatric Medicine
DX: E11.9 Type 2 diabetes mellitus without complications (principal); E23.6 Other disorders of pituitary gland; I10 Essential (primary) hypertension; R07.89 Other chest pain
CPT/HCPCS: 36415; 71101; 80053; 84403; 84443; 85025

== ENCOUNTER → 2020-10-07 10:05 | Outpatient (CLI) | payer BC, SELFPAY | PROVIDERS: PCP Family Medicine Geriatric Medicine; Referring Provider Family Medicine Geriatric Medicine; Visit Provider Family Medicine Geriatric Medicine | DX: R06.89 Other abnormalities of breathing (principal) | CPT/HCPCS: 87633; 87635; C9803; U0003 ==

== ENCOUNTER → 2020-10-24 17:36 | Outpatient (CLI) | payer BC, SELFPAY | PROVIDERS: PCP Family Medicine Geriatric Medicine; Referring Provider Family Medicine Geriatric Medicine; Visit Provider Family Medicine Geriatric Medicine | DX: R06.89 Other abnormalities of breathing (principal) | CPT/HCPCS: 87633; 87635; C9803; U0003 ==

== ENCOUNTER → 2020-10-27 16:24 | Outpatient (CLI) | payer BC, SELFPAY ==
[2020-10-27 17:32] LABS: Absolute Lymphocyte Count 1.52 X10^3/uL (0.83-4.51); Absolute Neutrophil Count 3.2 X10^3/uL (2.0-7.7); Basophil# 0.02 X10^3/uL; Basophil% 0.4 % (0-1); Eosinophil# 0.15 X10^3/uL; Eosinophils% 2.9 % (0-5); Hematocrit 44.5 % (40-54); Hemoglobin 14.2 g/dL (13.0-16.5); Lymphocyte # 1.52 X10^3/ul (4.0); Lymphocyte % 28.9 % (19-41); Mean Corp Hgb Conc 31.9 g/dL (32-36); Mean Corpuscular Hgb 26.9 pg (27.0-32.0); Mean Corpuscular Volume 84.3 fL (80-94); Mean Platelet Vol. 11.1 fl (6.2-12.0); Monocyte# 0.39 X10^3/uL; Monocyte% 7.4 % (0-10); NRBC Flagged by Analyzer 0 % (0-5); Neutrophil # 3.15 X10^3/uL (2.7-7.7); Neutrophil % 59.8 % (47-70); POSITIVE COUNT YES; Platelet Count 82 K/mm3 (150-450); RBC Distribution Width CV 13.9 % (11.6-14.6); RBC Distribution Width SD 42.8 fl (35.1-43.9); Red Blood Count 5.28 M/mm3 (4.6-6.2); White Blood Count 5.3 K/mm3 (4.4-11.0)
[2020-10-27 17:47] LABS: Differential Indicated SCAN CRITERIA MET
[2020-10-27 17:55] LABS: ALB/GLOB Ratio 0.8 RATIO (0.9-2.4); AST(SGOT) 43 U/L (15-37); Alanine Aminotransfer ALT/SGPT 56 U/L (16-61); Albumin, Serum 3.3 g/dL (3.2-5.0); Alkaline Phosphatase 178 U/L (45-117); Anion Gap 8 (5-15); BUN 17 mg/dL (7-18); BUN/Creat Ratio 17.3 RATIO (10-20); Calcium,Total 9.3 mg/dL (8.5-10.1); Chloride 100 mmol/L (98-107); Creatinine, Serum 0.98 mg/dL (0.70-1.30); EST Glomerular Filtration Rate 84 mL/min (>60); Est Glom Filt Rate - Afr Amer 102 mL/min (>60); Globulin 4.1 g/dL (2.2-4.2); Glucose 356 mg/dL (74-106); Potassium 4.2 mmol/L (3.5-5.1); Protein, Total 7.4 g/dL (6.4-8.2); Sodium Level 132 mmol/L (136-145)
[2020-10-27 18:17] LABS: Differential Comment SCANNED
== END ==
PROVIDERS: PCP Family Medicine Geriatric Medicine; Visit Provider Family Medicine Geriatric Medicine
DX: E11.9 Type 2 diabetes mellitus without complications (principal); E23.6 Other disorders of pituitary gland; I10 Essential (primary) hypertension
CPT/HCPCS: 36415; 80053; 84403; 84443; 85025

== ENCOUNTER → 2020-12-18 08:34 | Outpatient (CLI) | payer BC, SELFPAY ==
[2020-12-18 08:04] VITALS: BMI 36.5
[2020-12-18 09:04] LABS: Hematocrit 44.2 % (40-54); Hemoglobin 14.6 g/dL (13.0-16.5); Mean Corpuscular Volume 84.8 fL (80-94); Mean Platelet Vol. 11.3 fl (6.2-12.0); Platelet Count 106 K/mm3 (150-450); RBC Distribution Width CV 14.4 % (11.6-14.6); Red Blood Count 5.21 M/mm3 (4.6-6.2); White Blood Count 6.7 K/mm3 (4.4-11.0)
[2020-12-18 09:20] LABS: Anion Gap 7 (5-15); BUN 23 mg/dL (7-18); BUN/Creat Ratio 28.3 RATIO (10-20); Calcium,Total 9.8 mg/dL (8.5-10.1); Chloride 102 mmol/L (98-107); Creatinine, Serum 0.81 mg/dL (0.70-1.30); EST Glomerular Filtration Rate 105 mL/min (>60); Est Glom Filt Rate - Afr Amer 127 mL/min (>60); Glucose 329 mg/dL (74-106); Potassium 4.6 mmol/L (3.5-5.1); Sodium Level 134 mmol/L (136-145)
== END ==
PROVIDERS: PCP Family Medicine Geriatric Medicine; Referring Provider Surgery; Visit Provider Surgery
DX: Z01.818 Encounter for other preprocedural examination (principal)
CPT/HCPCS: 36415; 80048; 85027

== ENCOUNTER → 2020-12-22 09:34 | Outpatient (CLI) | payer BC, SELFPAY ==
[2020-12-18 08:04] VITALS: BMI 36.5
--- NOTE | 2020-12-22 09:36 | VDLE_ITS ---
Reason For Study: HX OF PE/DVT S/P FILTER. RIGHT LEFT GSV is normal. GSV is normal. CFV is compressible, spontaneous, phasic, CFV is compressible, spontaneous, phasic, competent and demonstrates normal competent, and demonstrates normal augmentation. augmentation. FV is compressible, spontaneous, phasic, FV is compressible, spontaneous, phasic, competent and demonstrates normal competent and demonstrates normal augmentation. augmentation. POP V is compressible, spontaneous, phasic, POP V is compressible, spontaneous, phasic, competent and demonstrates normal competent and demonstrates normal augmentation. augmentation. T/P Trunk is compressible. T/P Trunk is compressible. PTV is compressible. PTV is compressible. RT PerV is compressible. LT PerV is compressible. Procedure Exam performed in department. The exam was diagnostic. Interpretation Summary No evidence for acute deep venous thrombosis bilateral lower extremities with patent and compressible bilateral great saphenous veins. Ordering Physician: Micha Matthews Referring Physician: Ravindra Durham Chi Performed By: Jackie Olivia, DEMARCUSCS, RVT
== END ==
PROVIDERS: PCP Family Medicine Geriatric Medicine; Referring Provider Surgery; Visit Provider Surgery
DX: Z01.818 Encounter for other preprocedural examination (principal); I26.99 Other pulmonary embolism without acute cor pulmonale; Z95.828 Presence of other vascular implants and grafts; Z86.718 Personal history of other venous thrombosis and embolism
CPT/HCPCS: 93970

== ENCOUNTER 2020-12-25 08:41 | Day surgery (SDC) | payer BC, SELFPAY ==
[2020-12-18 08:04] VITALS: BMI 36.5
[2020-12-24 07:32] VITALS: BMI 36.5
--- NOTE | 2020-12-25 10:30 | PCM.HP.BLA ---
Problem List (1) Presence of inferior vena cava filter Status: Acute History and Physical Date of Admission: 12/25/20 Intake Visit Reasons: IVC FILTER REMOVAL Chief Complaint: syncope Allergies No Known Allergies Allergy (Verified 12/18/20 08:05) Medications Rosuvastatin Calcium 40 mg PO QHS 03/24/18 [History Confirmed 12/18/20] metFORMIN HCl [Glucophage] 1 tab PO BIDCM 03/24/18 [History Confirmed 12/18/20] Albuterol Sulfate [Ventolin Hfa] 90 mcg INHALATION Q4H PRN PRN 04/09/18 [History Confirmed 12/18/20] Testosterone [Androgel] 2 pump TRANSDERM. DAILY 04/09/18 [History Confirmed 12/18/20] empagliflozin 10 mg tablet 10 mg PO DAILY 12/18/20 [History Confirmed 12/18/20] pioglitazone 30 mg tablet 30 mg PO DAILY 12/18/20 [History Confirmed 12/18/20] semaglutide 1 mg/dose (2 mg/1.5 mL) subcutaneous pen injector 1 mg SC QWEEK 12/18/20 [History Confirmed 12/18/20] PFSH Medical History (Updated 12/18/20 @ 08:[address] Micha Matthews MD) Presence of inferior vena cava filter (Acute) Syncope (Acute) Lactic acidosis (Acute) Diabetes (Chronic) Pulmonary embolism (Chronic) HTN (hypertension) (Chronic) Gastric ulcer (Acute) Testicular cancer (Chronic) Surgical History (Updated 12/18/20 @ 08:03 by Isabela Sarabia) History of back surgery (Acute) History of orchiectomy, bilateral (Acute) S/P insertion of IVC (inferior vena caval) filter (Acute) Family History (Updated 12/18/20 @ 08:04 by Isabela Sarabia) Mother Diabetes Sister Diabetes Brother Diabetes Father Cancer lung Social History (Updated 12/18/20 @ 08:[address] Micha Matthews MD) Smoking Status: Former smoker HPI HPI HPI: INGRIS MATSON, is a 54 M who presents to the office today for surgical consultation regarding potential removal of an inferior vena cava filter. The patient is being referred by his primary care physician Dr. Ravindra Durham and a written copy my surgical consult recommendations will return to him. The patient apparently previously had pulmonary embolism and had a filter placed. Patient also had COVID-19 October 09, 2020. Apparently he is making steady progress in that regard. The patient on March 28, 2018 had a left common femoral vein approach and placement of inferior vena cava Terrell filter by Dr. Barbara Castillo. The patient states that that was extraordinarily painful for him. He states at that time he was very sick due to a combination of left pneumonia empyema and GI bleed. He had been referred to [facility] for that care. He claims he was in and out for 2 weeks. The filter is been in place since that time. He has not had any recurrent problems with leg swelling or recurrent DVT. His pneumonia issue is resolved. He does not recall being told why he developed pneumonia or consequence. His body weight is 240 pounds with a BMI of 36.5. And has been recommended to them because of his diabetes that he have gastric bypass surgery. The patient states that his insurance declined. The patient's recently been seen by his primary care physician Dr. Ravindra Durham and has been recommended to him that he have this filter removed. HPI HPI HPI: INGRIS MATSON, is a 54 M who presents to the office today for Exam Const General: cooperative, comfortable, no acute distress Nutritional Appearance: obese HENMT Head: normal to inspection Neck Other: Thick rather short neck Resp Effort & Inspection: normal respiratory effort Auscultation: clear to auscultation bilaterally Cardio Palpation: normal PMI Rate: regular rate Rhythm: regular rhythm GI Palpation: soft Other: Obese, overhanging abdominal pannus, nontender Musc Cervical Spine: normal cervical lordosis Neuro General: alert, awake Extrem General: no calf tenderness Psych Affect: normal affect Assessment & Plan Problems 1. Pulmonary embolism, unspecified chronicity, unspecified pulmonary embolism type, unspecified whether acute cor pulmonale present I26.99 2. Presence of inferior vena cava filter Z95.828 Plan 54-year-old gentleman who in March 2018 had a pneumonia acute gastric ulcer with GI bleed and multiple pulmonary embolization with placement of a inferior vena cava Lyn[place] filter. He states that that was extraordinarily painful at that time and placement. I concur and propose for him a right internal jugular approach for removal of the filter. I described the procedure in detail to the patient. I would utilize some mild IV sedation. I would use ultrasound and local anesthetic. The patient is aware that I need to have patient feedback upon removal of the filter and so that I would not be anticipating a general anesthetic. The patient is very much aware that the current filter has been in for a slightly longer than anticipated length of time. I have extensively discussed with him potential filter tilting or ingrowth. He is aware that this may be a more difficult removal. He is aware that a combined groin and neck approach may be required. He has had an opportunity to ask and have questions answered and is agreeable to proceeding. He is very concerned about the possible reaction of pain. We will try to facilitate that with utilization of a combination of 1% lidocaine mixed 50-50 with 0.5% Marcaine. I appreciate the opportunity of assisting with the surgical care Preoperatively we will obtain a bilateral lower extremity venous duplex exam to ensure no current lower extremity DVT Copy: Dr. Ravindra Matthews M.D., F.A.C.S. Orders Orders: Venous Duplex US - Manuel Extrem Today I26.99, Z01.818, Z86.718, Z95.828 Basic Metabolic Profile (BMP) Today Z01.818 CBC-Complete Blood Cnt No Diff Today Z01.818 Coding Level of Care Code 67327 Diagnoses Pulmonary embolism, unspecified chronicity, unspecified pulmonary embolism type, unspecified whether acute cor pulmonale present I26.99 ??Pulmonary embolism type: unspecified ??Chronicity: unspecified ??Acute cor pulmonale presence: unspecified Presence of inferior vena cava filter Z95.828 I have re-examined the patient. There are no clinical changes since date of exam.
--- NOTE | 2020-12-25 11:22 | PCM.OPRPT ---
Problem List (1) Presence of inferior vena cava filter Status: Acute Report of Operation Date of Procedure: 12/25/20 Pre-Operative Diagnosis: Presence of inferior vena cava filter Post-Operative Diagnosis: Same with no evidence of inferior vena caval thrombus Surgery/Procedure Performed:: Inferior venacavogram with inferior vena cava [place] filter retrieval Description of Surgical Findings:: Timeout and informed consent was obtained. 55-year-old gentleman was taken to the special procedures lab placed upon the table. 50 mcg of fentanyl and 2 mg of Versed were given centrally sedation. The right neck was sterilely prepped and draped. 1% lidocaine mixed 50-50 with 0.5% Marcaine was used as a local anesthetic. A total of 10 cc was used. Under ultrasound guidance local was instilled overlying the right internal jugular vein. Then under ultrasound guidance a micropuncture needle was inserted. Micropuncture wire inserted. Micropuncture sheath inserted. 035 J-wire was inserted. 5 Vincentian sheath was inserted. Then using fluoroscopy and a 035 J-wire was used to place a 5 Vincentian universal flush catheter into to the right common iliac vein. Using 15 cc a second for 20 cc of Isovue contrast and inferior venacavogram was obtained. The inferior venacavogram demonstrated that the right common iliac and distal inferior vena cava was thrombus free. The filter appeared to be sitting straight up. The entrance of the renal veins could be identified. There was no clear evidence of thrombus. Subsequently the flush catheter was removed. The sheath was removed. Predilatation was performed with a 9 Vincentian sheath. The 8 Vincentian retrieval mechanism which was inserted. A single right elbow snare was used to capture the apex of the filter. The filter was then the recorders, collapsed and then carefully withdrawn from the vena cava. There was mild to moderate discomfort but good tolerance. The filter was then easily retrieved. Patient remained very stable. The retrieval mechanism was then removed. The filter had been inspected was noted to be completely intact. Pressure was held for hemostasis. Sterile dressings applied. Blood loss was minimal. He tolerated the procedure well and was taken to the recovery area in satisfactory vision without apparent complication. Impression Unremarkable inferior venacavogram with successful [place] filter retrieval Specimens none. Drains none. Blood loss minimal. Type of Anesthesia:: IV Sedation, Local
== END 2020-12-25 12:30 | disposition home or self-care (01) ==
LOC: CLSP 08:42
PROVIDERS: PCP Family Medicine Geriatric Medicine; Referring Provider Surgery; Visit Provider Surgery
DX: Z45.2 Encounter for adjustment and management of vascular access device (principal); R55 Syncope and collapse; Z79.899 Other long term (current) drug therapy; Z79.84 Long term (current) use of oral hypoglycemic drugs; E11.9 Type 2 diabetes mellitus without complications; I10 Essential (primary) hypertension; Z86.718 Personal history of other venous thrombosis and embolism; Z85.47 Personal history of malignant neoplasm of testis
CPT/HCPCS: 37193; 76937; 99152; 99153; C1773; J7040; Q9967; C1769

== ENCOUNTER → 2021-07-09 17:50 | Outpatient (CLI) | payer BC, SELFPAY ==
[2021-07-09 18:07] LABS: Absolute Lymphocyte Count 1.85 X10^3/uL (0.83-4.51); Absolute Neutrophil Count 3.7 X10^3/uL (2.0-7.7); Basophil# 0.04 X10^3/uL; Basophil% 0.6 % (0-1); Eosinophil# 0.18 X10^3/uL; Eosinophils% 2.8 % (0-5); Hematocrit 45.1 % (40-54); Hemoglobin 14.1 g/dL (13.0-16.5); Lymphocyte # 1.85 X10^3/ul (0.83-4.51); Lymphocyte % 29.1 % (19-41); Mean Corp Hgb Conc 31.3 g/dL (32-36); Mean Corpuscular Hgb 27.8 pg (27.0-32.0); Mean Platelet Vol. 10.5 fl (6.2-12.0); Monocyte# 0.58 X10^3/uL; Monocyte% 9.1 % (0-10); NRBC Flagged by Analyzer 0 % (0-5); Neutrophil # 3.68 X10^3/uL (2.7-7.7); Neutrophil % 58.1 % (47-70); Platelet Count 109 K/mm3 (150-450); RBC Distribution Width CV 13.4 % (11.6-14.6); RBC Distribution Width SD 43.7 fl (35.1-43.9); Red Blood Count 5.07 M/mm3 (4.6-6.2); White Blood Count 6.4 K/mm3 (4.4-11.0)
[2021-07-09 18:42] LABS: ALB/GLOB Ratio 0.9 RATIO (0.9-2.4); AST(SGOT) 34 U/L (15-37); Alanine Aminotransfer ALT/SGPT 39 U/L (16-61); Albumin, Serum 3.7 g/dL (3.2-5.0); Alkaline Phosphatase 133 U/L (45-117); Anion Gap 7 (5-15); BUN 21 mg/dL (7-18); Calcium,Total 9.5 mg/dL (8.5-10.1); Chloride 104 mmol/L (98-107); Creatinine, Serum 0.92 mg/dL (0.70-1.30); EST Glomerular Filtration Rate 92 mL/min (>60); Est Glom Filt Rate - Afr Amer 111 mL/min (>60); Globulin 4.3 g/dL (2.2-4.2); Glucose 303 mg/dL (74-106); PSA,Total - Annual Screen < 0.01 ng/mL (0.00-4.00); Potassium 4.3 mmol/L (3.5-5.1); Sodium Level 138 mmol/L (136-145); Thyroid Stim Hormone (TSH) 0.92 uIU/mL (0.358-3.74)
== END ==
PROVIDERS: PCP Family Medicine Geriatric Medicine; Referring Provider Family Medicine Geriatric Medicine; Visit Provider Family Medicine Geriatric Medicine
DX: E11.9 Type 2 diabetes mellitus without complications (principal); E23.6 Other disorders of pituitary gland; I10 Essential (primary) hypertension; Z12.5 Encounter for screening for malignant neoplasm of prostate
CPT/HCPCS: 36415; 80053; 84153; 84403; 84443; 85025; G0103

== ENCOUNTER → 2021-07-14 07:02 | Outpatient (CLI) | payer BC, SELFPAY | PROVIDERS: PCP Family Medicine Geriatric Medicine; Referring Provider Family Medicine Geriatric Medicine; Visit Provider Family Medicine Geriatric Medicine | DX: D24.9 Benign neoplasm of unspecified breast (principal) | CPT/HCPCS: 36415; 82533 ==

== ENCOUNTER → 2021-10-10 07:08 | Outpatient (CLI) | payer BC, SELFPAY ==
[2021-10-10 07:36] LABS: Absolute Lymphocyte Count 0.77 X10^3/uL (0.83-4.51); Absolute Neutrophil Count 4.8 X10^3/uL (2.0-7.7); Basophil# 0.03 X10^3/uL; Basophil% 0.5 % (0-1); Eosinophil# 0.15 X10^3/uL; Eosinophils% 2.4 % (0-5); Hematocrit 43.7 % (40-54); Hemoglobin 14.3 g/dL (13.0-16.5); Lymphocyte # 0.77 X10^3/ul (0.83-4.51); Lymphocyte % 12.4 % (19-41); Mean Corp Hgb Conc 32.7 g/dL (32-36); Mean Corpuscular Hgb 27.6 pg (27.0-32.0); Mean Corpuscular Volume 84.2 fL (80-94); Mean Platelet Vol. 11.2 fl (6.2-12.0); Monocyte# 0.43 X10^3/uL; Monocyte% 6.9 % (0-10); NRBC Flagged by Analyzer 0 % (0-5); Neutrophil # 4.79 X10^3/uL (2.7-7.7); Neutrophil % 77.5 % (47-70); POSITIVE COUNT YES; Platelet Count 94 K/mm3 (150-450); RBC Distribution Width CV 13.5 % (11.6-14.6); RBC Distribution Width SD 41.1 fl (35.1-43.9); Red Blood Count 5.19 M/mm3 (4.6-6.2); White Blood Count 6.2 K/mm3 (4.4-11.0)
[2021-10-10 07:59] LABS: ALB/GLOB Ratio 0.9 RATIO (0.9-2.4); AST(SGOT) 34 U/L (15-37); Alanine Aminotransfer ALT/SGPT 52 U/L (16-61); Albumin, Serum 3.8 g/dL (3.2-5.0); Alkaline Phosphatase 164 U/L (45-117); Anion Gap 11 (5-15); BUN 20 mg/dL (7-18); BUN/Creat Ratio 21.3 RATIO (10-20); Calcium,Total 9.6 mg/dL (8.5-10.1); Chloride 100 mmol/L (98-107); Creatinine, Serum 0.94 mg/dL (0.70-1.30); EST Glomerular Filtration Rate 89 mL/min (>60); Est Glom Filt Rate - Afr Amer 107 mL/min (>60); Globulin 4.3 g/dL (2.2-4.2); Glucose 302 mg/dL (74-106); Potassium 4.3 mmol/L (3.5-5.1); Protein, Total 8.1 g/dL (6.4-8.2); Sodium Level 136 mmol/L (136-145); Thyroid Stim Hormone (TSH) 0.74 uIU/mL (0.358-3.74)
== END ==
PROVIDERS: PCP Family Medicine Geriatric Medicine; Referring Provider Family Medicine Geriatric Medicine; Visit Provider Family Medicine Geriatric Medicine
DX: E11.9 Type 2 diabetes mellitus without complications (principal); E24.9 Cushing's syndrome, unspecified; I10 Essential (primary) hypertension
CPT/HCPCS: 36415; 80053; 82533; 84403; 84443; 85025

== ENCOUNTER 2022-01-07 15:49 | Outpatient (CLI) | payer BC, SELFPAY ==
[2022-01-07 17:32] LABS: Absolute Lymphocyte Count 1.63 X10^3/uL (0.83-4.51); Absolute Neutrophil Count 3.1 X10^3/uL (2.0-7.7); Basophil# 0.03 X10^3/uL; Basophil% 0.6 % (0-1); Eosinophil# 0.09 X10^3/uL; Eosinophils% 1.7 % (0-5); Hematocrit 41.6 % (40-54); Hemoglobin 13.7 g/dL (13.0-16.5); Lymphocyte # 1.63 X10^3/ul (0.83-4.51); Lymphocyte % 31.1 % (19-41); Mean Corp Hgb Conc 32.9 g/dL (32-36); Mean Corpuscular Hgb 27.7 pg (27.0-32.0); Mean Platelet Vol. 11.7 fl (6.2-12.0); Monocyte% 7.6 % (0-10); NRBC Flagged by Analyzer 0 % (0-5); Neutrophil # 3.07 X10^3/uL (2.7-7.7); Neutrophil % 58.6 % (47-70); POSITIVE COUNT YES; Platelet Count 90 K/mm3 (150-450); RBC Distribution Width CV 13.5 % (11.6-14.6); RBC Distribution Width SD 41.2 fl (35.1-43.9); Red Blood Count 4.95 M/mm3 (4.6-6.2); White Blood Count 5.2 K/mm3 (4.4-11.0)
[2022-01-07 17:40] LABS: Differential Indicated SCAN CRITERIA MET
[2022-01-07 17:56] LABS: ALB/GLOB Ratio 0.9 RATIO (0.9-2.4); AST(SGOT) 33 U/L (15-37); Alanine Aminotransfer ALT/SGPT 42 U/L (16-61); Albumin, Serum 3.6 g/dL (3.2-5.0); Alkaline Phosphatase 154 U/L (45-117); Anion Gap 7 (5-15); BUN 18 mg/dL (7-18); BUN/Creat Ratio 18.5 RATIO (10-20); Calcium,Total 9.6 mg/dL (8.5-10.1); Chloride 99 mmol/L (98-107); Creatinine, Serum 0.97 mg/dL (0.70-1.30); Differential Comment SCANNED; EST Glomerular Filtration Rate 85 mL/min (>60); Est Glom Filt Rate - Afr Amer 103 mL/min (>60); Globulin 3.9 g/dL (2.2-4.2); Glucose 315 mg/dL (74-106); Potassium 3.7 mmol/L (3.5-5.1); Protein, Total 7.5 g/dL (6.4-8.2); Sodium Level 133 mmol/L (136-145); Thyroid Stim Hormone (TSH) 0.85 uIU/mL (0.358-3.74)
== END 2022-01-07 23:59 | disposition home or self-care (01) ==
PROVIDERS: PCP Family Medicine Geriatric Medicine; Visit Provider Family Medicine Geriatric Medicine
DX: E11.9 Type 2 diabetes mellitus without complications (principal); E23.6 Other disorders of pituitary gland; I10 Essential (primary) hypertension
CPT/HCPCS: 36415; 80053; 84403; 84443; 85025

== ENCOUNTER 2022-01-20 13:53 | Outpatient (CLI) | payer BC, SELFPAY | END 2022-01-20 23:59 | disposition home or self-care (01) | LOC: PSN 13:55 | PROVIDERS: PCP Family Medicine Geriatric Medicine; Referring Provider Family Medicine Geriatric Medicine; Visit Provider Family Medicine Geriatric Medicine | DX: R68.83 Chills (without fever) (principal) | CPT/HCPCS: 87635; 87804; 87807; C9803; U0003; U0005 ==

== ENCOUNTER 2022-02-15 07:51 | Outpatient (CLI) | payer BC, SELFPAY | END 2022-02-15 23:59 | disposition home or self-care (01) | LOC: LAB 07:52 | PROVIDERS: PCP Family Medicine Geriatric Medicine; Visit Provider Family Medicine Geriatric Medicine | DX: E24.9 Cushing's syndrome, unspecified (principal) | CPT/HCPCS: 36415; 82533 ==

== ENCOUNTER 2022-02-17 06:26 | Outpatient (CLI) | payer BC, SELFPAY | END 2022-02-17 23:59 | disposition home or self-care (01) | LOC: PSN 06:26 | PROVIDERS: PCP Family Medicine Geriatric Medicine; Visit Provider Family Medicine Geriatric Medicine | DX: R68.83 Chills (without fever) (principal) | CPT/HCPCS: 87635; 87804; 87807; C9803; U0003; U0005 ==

== ENCOUNTER → 2022-04-14 | Outpatient (CLI) | payer BC, SELFPAY ==
[2022-04-14 17:18] LABS: Absolute Neutrophil Count 4.6 X10^3/uL (2.0-7.7); Basophil# 0.04 X10^3/uL; Basophil% 0.6 % (0-1); Eosinophil# 0.15 X10^3/uL; Eosinophils% 2.1 % (0-5); Hematocrit 37.1 % (40-54); Hemoglobin 11.8 g/dL (13.0-16.5); Lymphocyte % 24.9 % (19-41); Mean Corp Hgb Conc 31.8 g/dL (32-36); Mean Corpuscular Hgb 27.3 pg (27.0-32.0); Mean Corpuscular Volume 85.9 fL (80-94); Mean Platelet Vol. 11.3 fl (6.2-12.0); Monocyte# 0.64 X10^3/uL; Monocyte% 8.8 % (0-10); NRBC Flagged by Analyzer 0.3 % (0-5); Neutrophil # 4.57 X10^3/uL (2.7-7.7); POSITIVE COUNT YES; Platelet Count 93 K/mm3 (150-450); RBC Distribution Width CV 14.2 % (11.6-14.6); RBC Distribution Width SD 44.2 fl (35.1-43.9); Red Blood Count 4.32 M/mm3 (4.6-6.2); White Blood Count 7.2 K/mm3 (4.4-11.0)
[2022-04-14 17:34] LABS: Vitamin D,25 Hydroxy 25.7 ng/mL
[2022-04-14 17:40] LABS: Differential Indicated SCAN CRITERIA MET
[2022-04-14 17:41] LABS: ALB/GLOB Ratio 0.9 RATIO (0.9-2.4); AST(SGOT) 31 U/L (15-37); Alanine Aminotransfer ALT/SGPT 35 U/L (16-61); Albumin, Serum 3.4 g/dL (3.2-5.0); Alkaline Phosphatase 100 U/L (45-117); Anion Gap 7 (5-15); BUN 28 mg/dL (7-18); BUN/Creat Ratio 36.1 RATIO (10-20); Calcium,Total 9.5 mg/dL (8.5-10.1); Chloride 105 mmol/L (98-107); Creatinine, Serum 0.78 mg/dL (0.70-1.30); EST Glomerular Filtration Rate 111 mL/min (>60); Est Glom Filt Rate - Afr Amer 134 mL/min (>60); Globulin 3.6 g/dL (2.2-4.2); Glucose 129 mg/dL (74-106); Potassium 4.4 mmol/L (3.5-5.1); Sodium Level 138 mmol/L (136-145); Thyroid Stim Hormone (TSH) 0.89 uIU/mL (0.358-3.74)
[2022-04-14 17:42] LABS: Anisocytosis RARE; Platelet Estimate MOD DEC (ADEQ); Red Cell Morphology NORM C+C NORMAL (NORM C&C)
== END | disposition home or self-care (01) ==
LOC: POLAB3 16:29
PROVIDERS: PCP Family Medicine Geriatric Medicine; Visit Provider Family Medicine Geriatric Medicine
DX: E11.9 Type 2 diabetes mellitus without complications (principal); E55.9 Vitamin D deficiency, unspecified; I10 Essential (primary) hypertension
CPT/HCPCS: 36415; 80053; 82306; 84443; 85025

== ENCOUNTER → 2022-07-15 | Outpatient (CLI) | payer BC, SELFPAY ==
[2022-07-15 16:57] LABS: Absolute Lymphocyte Count 1.99 X10^3/uL (0.83-4.51); Absolute Neutrophil Count 4.1 X10^3/uL (2.0-7.7); Basophil# 0.03 X10^3/uL; Basophil% 0.4 % (0-1); Eosinophil# 0.28 X10^3/uL; Hematocrit 37.4 % (40-54); Hemoglobin 12.1 g/dL (13.0-16.5); Lymphocyte # 1.99 X10^3/ul (0.83-4.51); Lymphocyte % 28.3 % (19-41); Mean Corp Hgb Conc 32.4 g/dL (32-36); Mean Corpuscular Hgb 27.1 pg (27.0-32.0); Mean Corpuscular Volume 83.9 fL (80-94); Mean Platelet Vol. 11.8 fl (6.2-12.0); Monocyte# 0.61 X10^3/uL; Monocyte% 8.7 % (0-10); NRBC Flagged by Analyzer 0 % (0-5); Neutrophil # 4.09 X10^3/uL (2.7-7.7); Neutrophil % 58.2 % (47-70); POSITIVE COUNT YES; Platelet Count 85 K/mm3 (150-450); RBC Distribution Width CV 14.1 % (11.6-14.6); RBC Distribution Width SD 42.8 fl (35.1-43.9); Red Blood Count 4.46 M/mm3 (4.6-6.2)
[2022-07-15 17:04] LABS: Differential Indicated SCAN CRITERIA MET
[2022-07-15 17:27] LABS: AST(SGOT) 37 U/L (15-37); Alanine Aminotransfer ALT/SGPT 33 U/L (16-61); Albumin, Serum 3.6 g/dL (3.2-5.0); Alkaline Phosphatase 99 U/L (45-117); Anion Gap 7 (5-15); BUN 23 mg/dL (7-18); BUN/Creat Ratio 26.3 RATIO (10-20); Calcium,Total 10.1 mg/dL (8.5-10.1); Chloride 103 mmol/L (98-107); Creatinine, Serum 0.88 mg/dL (0.70-1.30); EST Glomerular Filtration Rate 96 mL/min (>60); Est Glom Filt Rate - Afr Amer 116 mL/min (>60); Globulin 3.7 g/dL (2.2-4.2); Glucose 111 mg/dL (74-106); PSA,Total - Annual Screen 0.02 ng/mL (0.00-4.00); Potassium 4.1 mmol/L (3.5-5.1); Protein, Total 7.3 g/dL (6.4-8.2); Sodium Level 137 mmol/L (136-145); Thyroid Stim Hormone (TSH) 0.97 uIU/mL (0.358-3.74)
[2022-07-15 17:46] LABS: Platelet Estimate MOD DEC (ADEQ)
[2022-07-15 17:47] LABS: Anisocytosis RARE; Red Cell Morphology NORM C+C NORMAL (NORM C&C)
== END | disposition home or self-care (01) ==
LOC: POLAB3 14:17
PROVIDERS: PCP Family Medicine Geriatric Medicine; Visit Provider Family Medicine Geriatric Medicine
DX: E11.65 Type 2 diabetes mellitus with hyperglycemia (principal); E23.6 Other disorders of pituitary gland; I10 Essential (primary) hypertension; Z12.5 Encounter for screening for malignant neoplasm of prostate
CPT/HCPCS: 36415; 80053; 84153; 84403; 84443; 85025; G0103

== ENCOUNTER → 2022-07-19 | Outpatient (CLI) | payer BC, SELFPAY | END | disposition home or self-care (01) | LOC: PSN 08:19 | PROVIDERS: PCP Family Medicine Geriatric Medicine; Referring Provider Family Medicine Geriatric Medicine; Visit Provider Family Medicine Geriatric Medicine | DX: R68.83 Chills (without fever) (principal) | CPT/HCPCS: 87426; 87804; 87807; C9803 ==

== ENCOUNTER → 2022-10-14 | Outpatient (CLI) | payer OTHER, SELFPAY ==
--- NOTE | 2022-10-14 17:25 | RAD_ITS ---
EXAM: XR ABDOMEN, 1 VIEW CLINICAL INDICATION: NAUSEA AND VOMITING TECHNIQUE: Frontal supine view of the abdomen/pelvis. This report was created using [employer] report generation technology. COMPARISON: None. FINDINGS: LOWER THORAX: No acute pathology. GASTROINTESTINAL TRACT: Normal bowel gas pattern. ORGANS: No organomegaly. BONES/JOINTS: No acute abnormality. SOFT TISSUES: No pathological calcification. RAD/Abdomen Single View IMPRESSION: Non-obstructive bowel gas pattern. Electronically Signed: Sylvester Isidro MD at 7:24 EST ,
== END | disposition home or self-care (01) ==
PROVIDERS: PCP Family Medicine Geriatric Medicine; Referring Provider Family Medicine Geriatric Medicine; Visit Provider Family Medicine Geriatric Medicine
DX: R11.2 Nausea with vomiting, unspecified (principal); N39.0 Urinary tract infection, site not specified
CPT/HCPCS: 74018; 87077; 87086; 87088

== ENCOUNTER → 2023-01-11 | Outpatient (CLI) | payer OTHER, SELFPAY | END | disposition home or self-care (01) | PROVIDERS: PCP Family Medicine Geriatric Medicine; Referring Provider Family Medicine Geriatric Medicine; Visit Provider Family Medicine Geriatric Medicine | DX: R68.83 Chills (without fever) (principal) | CPT/HCPCS: 87635; 87804; 87807; C9803; U0003; U0005 ==

== ENCOUNTER → 2023-02-15 | Outpatient (CLI) | payer OTHER, SELFPAY ==
[2023-02-15 13:10] LABS: Absolute Neutrophil Count 4.2 X10^3/uL (2.0-7.7); Basophil# 0.04 X10^3/uL; Basophil% 0.6 % (0-1); Eosinophil# 0.14 X10^3/uL; Eosinophils% 2.1 % (0-5); Hematocrit 39.9 % (40-54); Hemoglobin 12.1 g/dL (13.0-16.5); Lymphocyte % 23.7 % (19-41); Mean Corp Hgb Conc 30.3 g/dL (32-36); Mean Corpuscular Hgb 26.8 pg (27.0-32.0); Mean Corpuscular Volume 88.3 fL (80-94); Mean Platelet Vol. 11.3 fl (6.2-12.0); Monocyte# 0.69 X10^3/uL; Monocyte% 10.2 % (0-10); NRBC Flagged by Analyzer 0 % (0-5); Neutrophil # 4.23 X10^3/uL (2.7-7.7); Neutrophil % 62.5 % (47-70); Platelet Count 102 K/mm3 (150-450); RBC Distribution Width CV 14.6 % (11.6-14.6); Red Blood Count 4.52 M/mm3 (4.6-6.2); White Blood Count 6.8 K/mm3 (4.4-11.0)
[2023-02-15 13:58] LABS: ALB/GLOB Ratio 1.1 RATIO (0.9-2.4); AST(SGOT) 63 U/L (15-37); Alanine Aminotransfer ALT/SGPT 53 U/L (16-61); Albumin, Serum 3.6 g/dL (3.2-5.0); Alkaline Phosphatase 126 U/L (45-117); Amylase 48 U/L (25-115); Anion Gap 4 (5-15); BUN 26 mg/dL (7-18); BUN/Creat Ratio 33.6 RATIO (10-20); Calcium,Total 9.5 mg/dL (8.5-10.1); Chloride 107 mmol/L (98-107); Creatinine, Serum 0.77 mg/dL (0.70-1.30); EST Glomerular Filtration Rate 110 mL/min (>60); Est Glom Filt Rate - Afr Amer 134 mL/min (>60); Globulin 3.2 g/dL (2.2-4.2); Glucose 100 mg/dL (74-106); Lipase 30 U/L (13-75); Potassium 4.1 mmol/L (3.5-5.1); Protein, Total 6.8 g/dL (6.4-8.2); Sodium Level 140 mmol/L (136-145); Thyroid Stim Hormone (TSH) 1.48 uIU/mL (0.358-3.74)
== END | disposition home or self-care (01) ==
LOC: POLAB3 11:23
PROVIDERS: PCP Family Medicine Geriatric Medicine; Visit Provider Family Medicine Geriatric Medicine
DX: K52.9 Noninfective gastroenteritis and colitis, unspecified (principal); E11.65 Type 2 diabetes mellitus with hyperglycemia; I10 Essential (primary) hypertension; R10.9 Unspecified abdominal pain
CPT/HCPCS: 36415; 80053; 82150; 82274; 83630; 83690; 84443; 85025; 87177; 87209; 87493; 87506

== ENCOUNTER → 2023-03-29 | Outpatient (CLI) | payer OTHER, SELFPAY ==
[2023-03-29 17:17] LABS: Absolute Lymphocyte Count 1.13 X10^3/uL (0.83-4.51); Absolute Neutrophil Count 3.2 X10^3/uL (2.0-7.7); Basophil# 0.01 X10^3/uL; Basophil% 0.2 % (0-1); Eosinophil# 0.11 X10^3/uL; Eosinophils% 2.3 % (0-5); Hematocrit 36.5 % (40-54); Lymphocyte # 1.13 X10^3/ul (0.83-4.51); Lymphocyte % 23.3 % (19-41); Mean Corp Hgb Conc 30.1 g/dL (32-36); Mean Corpuscular Hgb 26.3 pg (27.0-32.0); Mean Corpuscular Volume 87.3 fL (80-94); Mean Platelet Vol. 10.8 fl (6.2-12.0); Monocyte# 0.33 X10^3/uL; Monocyte% 6.8 % (0-10); NRBC Flagged by Analyzer 0 % (0-5); Neutrophil # 3.24 X10^3/uL (2.7-7.7); POSITIVE COUNT YES; Platelet Count 80 K/mm3 (150-450); RBC Distribution Width CV 15.1 % (11.6-14.6); RBC Distribution Width SD 48.4 fl (35.1-43.9); Red Blood Count 4.18 M/mm3 (4.6-6.2); White Blood Count 4.8 K/mm3 (4.4-11.0)
[2023-03-29 17:40] LABS: Differential Indicated SCAN CRITERIA MET
[2023-03-29 17:58] LABS: ALB/GLOB Ratio 0.9 RATIO (0.9-2.4); AST(SGOT) 48 U/L (15-37); Alanine Aminotransfer ALT/SGPT 42 U/L (16-61); Albumin, Serum 3.2 g/dL (3.2-5.0); Alkaline Phosphatase 143 U/L (45-117); Anion Gap 8 (5-15); BUN 28 mg/dL (7-18); BUN/Creat Ratio 28.1 RATIO (10-20); Calcium,Total 9.1 mg/dL (8.5-10.1); Chloride 108 mmol/L (98-107); EST Glomerular Filtration Rate 83 mL/min (>60); Est Glom Filt Rate - Afr Amer 100 mL/min (>60); Globulin 3.5 g/dL (2.2-4.2); Glucose 323 mg/dL (74-106); Potassium 4.2 mmol/L (3.5-5.1); Protein, Total 6.7 g/dL (6.4-8.2); Sodium Level 140 mmol/L (136-145)
[2023-03-29 18:08] LABS: Differential Comment SCANNED; Platelet Estimate MOD DEC (ADEQ)
[2023-03-29 19:08] LABS: BNP,B-Type NATRIURETIC PEPTIDE 9.6 pg/mL (0-100)
== END | disposition home or self-care (01) ==
LOC: POLAB3 16:37
PROVIDERS: PCP Family Medicine Geriatric Medicine; Visit Provider Family Medicine Geriatric Medicine
DX: R06.02 Shortness of breath (principal); R60.9 Edema, unspecified
CPT/HCPCS: 36415; 80053; 83880; 85025

== ENCOUNTER → 2023-04-11 | Outpatient (CLI) | payer OTHER, SELFPAY ==
[2023-04-11 17:47] LABS: Absolute Lymphocyte Count 2.54 X10^3/uL (0.83-4.51); Absolute Neutrophil Count 5.2 X10^3/uL (2.0-7.7); Basophil# 0.04 X10^3/uL; Basophil% 0.5 % (0-1); Eosinophils% 2.3 % (0-5); Hematocrit 37.3 % (40-54); Hemoglobin 11.5 g/dL (13.0-16.5); Lymphocyte # 2.54 X10^3/ul (0.83-4.51); Mean Corp Hgb Conc 30.8 g/dL (32-36); Mean Corpuscular Hgb 26.5 pg (27.0-32.0); Mean Corpuscular Volume 85.9 fL (80-94); Monocyte# 0.77 X10^3/uL; Monocyte% 8.8 % (0-10); NRBC Flagged by Analyzer 0 % (0-5); Neutrophil # 5.15 X10^3/uL (2.7-7.7); Neutrophil % 58.8 % (47-70); Platelet Count 100 K/mm3 (150-450); RBC Distribution Width CV 14.9 % (11.6-14.6); RBC Distribution Width SD 46.6 fl (35.1-43.9); Red Blood Count 4.34 M/mm3 (4.6-6.2); White Blood Count 8.8 K/mm3 (4.4-11.0)
[2023-04-11 18:20] LABS: ALB/GLOB Ratio 0.9 RATIO (0.9-2.4); AST(SGOT) 53 U/L (15-37); Alanine Aminotransfer ALT/SGPT 55 U/L (16-61); Albumin, Serum 3.5 g/dL (3.2-5.0); Alkaline Phosphatase 137 U/L (45-117); Anion Gap 7 (5-15); BUN 30 mg/dL (7-18); Calcium,Total 9.4 mg/dL (8.5-10.1); Chloride 107 mmol/L (98-107); Creatinine, Serum 1.11 mg/dL (0.70-1.30); EST Glomerular Filtration Rate 73 mL/min (>60); Est Glom Filt Rate - Afr Amer 88 mL/min (>60); Globulin 4.1 g/dL (2.2-4.2); Glucose 69 mg/dL (74-106); Potassium 3.7 mmol/L (3.5-5.1); Protein, Total 7.6 g/dL (6.4-8.2); Sodium Level 137 mmol/L (136-145); Thyroid Stim Hormone (TSH) 2.18 uIU/mL (0.358-3.74)
== END | disposition home or self-care (01) ==
LOC: LAB 17:12
PROVIDERS: PCP Family Medicine Geriatric Medicine; Referring Provider Family Medicine Geriatric Medicine; Visit Provider Family Medicine Geriatric Medicine
DX: I10 Essential (primary) hypertension (principal); E11.65 Type 2 diabetes mellitus with hyperglycemia
CPT/HCPCS: 36415; 80053; 84443; 85025

== ENCOUNTER → 2023-04-12 | Outpatient (CLI) | payer OTHER, SELFPAY ==
--- NOTE | 2023-04-12 13:43 | ECHOCS_ITS ---
Reason For Study: SOB Procedure This was a 2D Doppler, Color Flow transthoracic echocardiogram. The study was technically difficult. Contrast injection was performed. Exam performed in department. Left Ventricle Normal LV size. Left ventricular systolic function is normal. The estimated ejection fraction is 65 %. Stage 1 diastolic dysfunction. No regional wall motion abnormalities noted. Right Ventricle Normal RV size. Normal systolic function. Atria Normal left atrium. Normal right atrium. Mitral Valve Normal mitral valve. Tricuspid Valve Normal tricuspid valve. Mild tricuspid valve insufficiency. Pulmonary artery systolic pressure is 26 mmHg. Aortic Valve Trisinus/trileaflet aortic valve. Pulmonic Valve Normal pulmonic valve. Great Vessels Normal aortic root. The pulmonary artery is normal size. Normal inferior vena cava. Pericardium/Pleural No pericardial effusion. Medication 22 gauge I.V. with prn adaptor inserted into right arm. Diluted definity 2ml given slow IV push to enhance endocardial definition. MMode/2D Measurements & Calculations LVIDd: 5.8 cm IVSd: 1.1 cm Ao root diam: 3.8 cm LVIDs: 4.2 cm LVPWd: 1.2 cm FS: 27.3 % LAV(MOD-bp): 60.4 ml LVAd ap4: 33.7 cm2 LVAd ap2: 35.8 cm2 LAV(MOD-bp) Indexed: 25.0 ml/m2 LVLd ap4: 8.5 cm LVLd ap2: 8.7 cm LAV(MOD-sp2): 67.9 ml EDV(MOD-sp4): 108.2 ml EDV(MOD-sp2): 123.2 ml LAV(MOD-sp4): 51.4 ml EDV(sp4-el): 113.4 ml EDV(sp2-el): 125.6 ml LVAs ap4: 20.4 cm2 LVAs ap2: 23.0 cm2 LVLs ap4: 7.2 cm LVLs ap2: 8.1 cm ESV(MOD-sp4): 46.0 ml ESV(MOD-sp2): 55.6 ml ESV(sp4-el): 49.0 ml ESV(sp2-el): 55.5 ml EF(MOD-sp4): 57.5 % EF(MOD-sp2): 54.9 % EF(sp4-el): 56.8 % SV(MOD-sp4): 62.2 ml SV(MOD-sp2): 67.7 ml SV(sp4-el): 64.4 ml LA A4 area: 18.4 cm2 LA dimension(2D): 4.3 cm RA A4 area: 11.3 cm2 Time Measurements MV dec time: 0.20 sec Doppler Measurements & Calculations MV E max lowell: 83.6 cm/sec Lat Peak E' Lowell: 12.8 cm/sec Med Peak E' Lowell: 8.2 cm/sec MV A max lowell: 85.3 cm/sec E/E' lat: 6.5 E/E' med: 10.1 MV E/A: 0.98 MV V2 max: 103.0 cm/sec Ao V2 max: 172.0 cm/sec MV max P.3 mmHg MV dec slope: 453.2 cm/sec2 Ao max P.9 mmHg MV V2 mean: 74.4 cm/sec Ao V2 mean: 126.3 cm/sec MV mean P.4 mmHg Ao mean P.1 mmHg MV V2 VTI: 31.1 cm Ao V2 VTI: 36.8 cm AV (velocity ratio): 0.67 LV V1 max: 114.0 cm/sec PA V2 max: 141.9 cm/sec TR max lowell: 240.8 cm/sec LV V1 max P.2 mmHg PA V2 mean: 94.5 cm/sec TR max P.2 mmHg LV V1 mean P.8 mmHg LV V1 mean: 75.1 cm/sec LV V1 VTI: 24.9 cm ECHO/Echo Complete W/ Contrast Interpretation Summary Normal LV size. Left ventricular systolic function is normal. The estimated ejection fraction is 65 %. Stage 1 diastolic dysfunction. Contrast injection was performed. Ordering Physician: Ravindra Durham Chi Referring Physician: Ravindra Durham Chi Performed By: Autumn Leigh RCS
== END | disposition home or self-care (01) ==
LOC: CVS 13:42
PROVIDERS: PCP Family Medicine Geriatric Medicine; Referring Provider Family Medicine Geriatric Medicine; Visit Provider Family Medicine Geriatric Medicine
DX: R06.02 Shortness of breath (principal)
CPT/HCPCS: 93306; Q9957; A4216; C8929

== ENCOUNTER → 2023-05-17 | Outpatient (CLI) | payer OTHER, SELFPAY ==
[2023-05-17 11:01] LABS: Erythrocyte Sedimentation Rate 21 mm/hr (0-20)
[2023-05-17 11:06] LABS: Absolute Lymphocyte Count 1.57 X10^3/uL (0.83-4.51); Absolute Neutrophil Count 4.2 X10^3/uL (2.0-7.7); Basophil# 0.03 X10^3/uL; Basophil% 0.5 % (0-1); Eosinophil# 0.15 X10^3/uL; Eosinophils% 2.3 % (0-5); Hematocrit 37.3 % (40-54); Hemoglobin 11.3 g/dL (13.0-16.5); Lymphocyte # 1.57 X10^3/ul (0.83-4.51); Lymphocyte % 23.9 % (19-41); Mean Corp Hgb Conc 30.3 g/dL (32-36); Mean Corpuscular Hgb 26.4 pg (27.0-32.0); Mean Corpuscular Volume 87.1 fL (80-94); Mean Platelet Vol. 10.7 fl (6.2-12.0); Monocyte# 0.53 X10^3/uL; Monocyte% 8.1 % (0-10); NRBC Flagged by Analyzer 0 % (0-5); Neutrophil # 4.21 X10^3/uL (2.7-7.7); Neutrophil % 64.1 % (47-70); POSITIVE COUNT YES; Platelet Count 87 K/mm3 (150-450); RBC Distribution Width SD 47.7 fl (35.1-43.9); Red Blood Count 4.28 M/mm3 (4.6-6.2); White Blood Count 6.6 K/mm3 (4.4-11.0)
[2023-05-17 11:15] LABS: Hemoglobin A1c 6.9 % (3.8-5.6); Prothrombin Time (Protime)PT. 13.3 SECONDS (11.7-14.9)
[2023-05-17 11:56] LABS: HIV - WCH Non-Reactive (Nonreactive)
[2023-05-17 16:47] LABS: ALB/GLOB Ratio 0.9 RATIO (0.9-2.4); AST(SGOT) 35 U/L (15-37); Alanine Aminotransfer ALT/SGPT 37 U/L (16-61); Albumin, Serum 3.4 g/dL (3.2-5.0); Alkaline Phosphatase 110 U/L (45-117); Anion Gap 5 (5-15); BUN 21 mg/dL (7-18); BUN/Creat Ratio 24.6 RATIO (10-20); CRP < 2.90 mg/L (0.0-3.0); Calcium,Total 9.2 mg/dL (8.5-10.1); Chloride 110 mmol/L (98-107); Creatinine, Serum 0.85 mg/dL (0.70-1.30); EST Glomerular Filtration Rate 99 mL/min (>60); Est Glom Filt Rate - Afr Amer 119 mL/min (>60); Ferritin 26 ng/mL (26-388); Globulin 3.8 g/dL (2.2-4.2); Glucose 122 mg/dL (74-106); Iron 76 ug/dL (65-175); Iron Binding Capacity,Total 420 ug/dL (250-450); LDH 210 U/L (87-241); PERCENT IRON SATURATION 18.1 % (15.0-55.0); Potassium 4.1 mmol/L (3.5-5.1); Protein, Total 7.2 g/dL (6.4-8.2); Sodium Level 140 mmol/L (136-145)
[2023-05-18 17:07] LABS: Anti-Centromere B Ab <0.2 AI (0.0-0.9); Anti-Chromatin <0.2 AI (0.0-0.9); Anti-Jo <0.2 AI (0.0-0.9); Anti-Mitochondrial AB <20.0 Units (0.0-20.0); Anti-Scleroderma-70 AB <0.2 AI (0.0-0.9); Anti-dsDNA Ab <1 IU/mL (0-9); RNP Ab <0.2 AI (0.0-0.9); SJOGREN'S Anti-SS-A test < 0.2 AI (0.0-0.9); SJOGREN'S Anti-SS-B test < 0.2 AI (0.0-0.9); Smith Ab <0.2 AI (0.0-0.9)
[2023-05-20 15:08] LABS: AFP, Tumor Marker 2.8 ng/mL (0.0-8.4); Angiotensin Convert Enzyme 86 U/L (14-82); Anti-Smooth Muscle ABS 12 Units (0-19); Ceruloplasmin 26.6 mg/dL (16.0-31.0); Copper, Serum or Plasma 117 ug/dL (69-132); Cytoplasmic Ab (C-ANCA) <1:20 titer (Neg:<1:20); HEPATITIS B SURFACE AG Negative (Negative); Haptoglobin 140 mg/dL (29-370); Hep C Antibodies Non Reactive (Non Reactive); Hepatitis A IgM Antibody Negative (Negative); Hepatitis B Core AB IgM Negative (Negative); Perinuclear Ab (P-ANCA) <1:20 titer (Neg:<1:20)
== END | disposition home or self-care (01) ==
PROVIDERS: PCP Family Medicine Geriatric Medicine; Referring Provider Internal Medicine Gastroenterology; Visit Provider Internal Medicine Gastroenterology
DX: R10.9 Unspecified abdominal pain (principal); D75.839 Thrombocytosis, unspecified
CPT/HCPCS: 36415; 80053; 80074; 82105; 82140; 82164; 82390; 82525; 82728; 83010; 83036; 83516; 83540; 83550; 83615; 85025; 85610; 85652; 86140; 86225; 86235; 86256; 86703

== ENCOUNTER → 2023-06-17 | Outpatient (CLI) | payer OTHER, SELFPAY ==
--- NOTE | 2023-06-17 07:29 | US_ITS ---
STUDY: ABDOMINAL ULTRASOUND - RIGHT UPPER QUADRANT REASON FOR VISIT: Male, 57 years old ABDOMINAL PAIN TECHNIQUE: Ultrasound evaluation of the right upper quadrant was performed with real-time and static cordova-scale imaging. TECHNICAL QUALITY: Limited. Examination limited by bowel gas. COMPARISON: Comparison is made with prior study dated July 25, 2014. FINDINGS: Liver: The liver is enlarged and measures 19.1 cm. There is increased echogenicity consistent with fatty infiltration. The bile ducts are within normal limits. There is hepatic color flow. The direction of portal flow is hepatopetal. There is no demonstrated mass lesion. Gallbladder: Normal distended gallbladder. The gallbladder wall measures 1.6 mm. There is a negative sonographic Garcia''s sign. There is no pericholecystic fluid. There are multiple echogenic structures within the gallbladder, consistent with multiple small gallstones. Common Bile Duct (C.B.D.): The common bile duct measures 4.2 mm. Pancreas: Normal size of the head, body of the pancreas. The tail portion is obscured due to bowel gas. There is normal echogenicity of the pancreas. There is no demonstrated pancreatic mass or cyst. Right Kidney: Normal size of the right kidney. The right kidney measures 12.9 cm x 6.3 cm x 5.3 cm. Normal renal cortex. The right cortex measures 1.5 cm. There is no demonstrated renal mass or cyst. There is no right hydronephrosis. US/Abdomen Limited IMPRESSION: Hepatomegaly and fatty infiltration of the liver. Multiple small gallstones. Electronically Signed: Travis Borges MD at 13:35 EDT ,
--- NOTE | 2023-06-17 07:29 | US_ITS ---
STUDY: ABDOMINAL ULTRASOUND - ELASTOGRAPHY REASON FOR VISIT: Male, 57 years old. Fatty infiltration of the liver. TECHNIQUE: Liver stiffness measurements were obtained on a [employer] RS 85 ultrasound machine using a CA 1-7 probe following the SRU guidelines. 3 measurements were obtained using a 2-D-SWE method. TheIQR/M was 25% suggesting a quality data set. TECHNICAL QUALITY: Adequate. COMPARISON: Comparison is made with prior ultrasound of the right upper quadrant done earlier today. FINDINGS: Liver: Hepatomegaly and fatty infiltration of the liver. Median liver stiffness measured 11.3 kPa. Abdomen: There is no demonstrated mass lesion. US/Elastography Parenchyma/Organ IMPRESSION: Liver stiffness measures 11.3 kPa compatible with F2-F3 (Mild to moderate liver fibrosis) Metavir score. Electronically Signed: Travis Borges MD at 13:40 EDT ,
== END | disposition home or self-care (01) ==
PROVIDERS: PCP Family Medicine Geriatric Medicine; Referring Provider Internal Medicine Gastroenterology; Visit Provider Internal Medicine Gastroenterology
DX: R10.9 Unspecified abdominal pain (principal); D75.839 Thrombocytosis, unspecified
CPT/HCPCS: 76705; 76981

== ENCOUNTER → 2023-06-24 | Outpatient (CLI) | payer OTHER, SELFPAY ==
--- NOTE | 2023-06-24 09:44 | NM_ITS ---
CLINICAL: 57-year-old diabetic male with clinical gastroparesis. SEMI-SOLID PHASE 99m Tc SULFUR COLLOID GASTRIC EMPTYING STUDY COMPARISON: None available FINDINGS: The patient was administered 1.1 mCi of 99m Tc sulfur colloid mixed with oatmeal and consumed per os. Image acquisitions in the anterior-posterior projections were obtained for 60 minutes. There is prompt visualization of the stomach. There is no gastroesophageal reflux identified. First order kinetics are maintained throughout the duration of the acquisitions. The T ? raw data emptying was calculated to be 55.15 minutes, (Normal: 12-56 minutes). NM/Gastric Emptying Study IMPRESSION: 1. NORMAL 99m Tc sulfur colloid semi-solid phase (oatmeal) gastric emptying imaging examination. A. There is upper limits of normal semi-solid phase gastric emptying compared to normal controls with maintained first order kinetics throughout all components of the examination. (Wilfred et al, J Nucl Med Tech 38: 186, 2010). Electronically Signed: David Null, at 21:26 EDT ,
== END | disposition home or self-care (01) ==
PROVIDERS: PCP Family Medicine Geriatric Medicine; Referring Provider Internal Medicine Gastroenterology; Visit Provider Internal Medicine Gastroenterology
DX: R10.9 Unspecified abdominal pain (principal); D75.839 Thrombocytosis, unspecified
CPT/HCPCS: 78264; A9541

== ENCOUNTER 2023-07-04 07:14 | Day surgery (SDC) | payer OTHER, SELFPAY ==
[2023-07-04 07:34] VITALS: BP 174/73; PULSE 69; RESP 16; TEMP 36.2; O2SAT 98; BMI 45.2
[2023-07-04] MEDS: Lactated Ringers 1,000 ML 15 ML IV (07:40)
--- NOTE | 2023-07-04 07:52 | HP.PCM_ITS ---
History and Physical Date of Admission: 07/04/23 57 M who presents to the office today for Prior workup: ? CT abd/pel 04.26.18 cholelithiasis; colonic diverticulosis ? Stool c.difficile, EP, O/P WNL? Blood +, lactoferrin + *BGI established 7.09.29 He was having difficulty with upper abdominal pain that disturbed his sleep and PO intake and nausea and loose stools. PCP started sucralfate, PPI and flagyl and symptoms resolved. Stool is normal brown with BM 1-2/day with alternating normal and loose stools. Reports DMII is under control, most recent A1c 6.8. Reports lower abdominal discomfort and looser/formed stools that are still ongoing but interrupting life. Exam Const General: cooperative and comfortable Nutritional Appearance: average body habitus and well nourished [facility] Head: normal to inspection Ears: hearing grossly normal bilaterally Nose: external nose normal Face and sinus: normal facial exam Mouth: oral mucosae normal Throat: posterior oropharynx normal Eyes General: appearance normal, both eyes and all related structures Neck Neck: normal visual inspection Chest Chest palpation & inspection: normal inspection of the chest and normal palpation of entire chest wall Resp Effort & Inspection: normal respiratory effort Auscultation: Bilateral: Clear to Auscultation Cardio Palpation: normal PMI Rate: regular rate Rhythm: regular rhythm GI Inspection: normal to inspection Auscultation: normal bowel sounds Percussion: normal to percussion Palpation: no hepatosplenomegaly Skin General: no rashes or lesions noted Neuro General: patient alert Extrem General: normal to inspection Psych Affect: normal affect Quality Reporting Tobacco Screening ([facility] 138) Smoking Status: Former smoker Assessment and Plan Assessment and Plan (1) Thrombocythemia: Status: Chronic Plan: 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 There was 1+ iron deposition. He has no previous history of hemochromatosis. Hepato-splenomegaly possibly secondary to portal hypertension from alcoholic fatty liver disease. Patient says that he did see hematology in the past and does not know if he was treated for ITP with steroids. He did not receive any chemotherapy for his metastatic testicular cancer. He did receive radiation therapy. This does put him at risk for radiation-induced enteritis. I would recommend to check him for H. pylori as it is the cause of thrombocytopenia. Would also recommend to check him for hereditary hemoc hromatosis, either type I hemochromatosis or type IV Hemochromatosis. disease. (2) Abdominal pain: Status: Chronic Plan: Patient did respond very well to antisecretory therapy for his abdominal pain. The differential diagnosis does include peptic ulcer disease, gastroparesis. He should get an ultrasound of the right upper quadrant along with elastography. Orders: Orders Abdomen Limited Today D75.839 - Thrombocytosis, unspecified, R10.9 - Unspecified abdominal pain Elastography Parenchyma/Organ Today D75.839 - Thrombocytosis, unspecified, R10.9 - Unspecified abdominal pain AFP, Tumor Marker Today D7.839 - Thrombocytosis, unspecified, R10.9 - Unspecified abdominal pain CBC W/Diff, Automated Today D75.839 - Thrombocytosis, unspecified, R10.9 - Unspecified abdominal pain Haptoglobin Today D75.839 - Thrombocytosis, unspecified, R10.9 - Unspecified abdominal pain Ammonia Today D75.839 - Thrombocytosis, unspecified, R10.9 - Unspecified abdominal pain Ceruloplasmin Today D75.839 - Thrombocytosis, unspecified, R10.9 - Unspecified abdominal pain Hemoglobin A1c Today D75.839 - Thrombocytosis, unspecified, R10.9 - Unspecified abdominal pain JUDY Comprehensive Panel Today D75.839 - Thrombocytosis, unspecified, R10.9 - Unspecified abdominal pain Comprehensive Metabolic Profil Today D75.839 - Thrombocytosis, unspecified, R10.9 - Unspecified abdominal pain Hepatitis Panel Acute Today D75.839 - Thrombocytosis, unspecified, R10.9 - Unspecified abdominal pain ANCA Today D75.839 - Thrombocytosis, unspecified, R10.9 - Unspecified abdominal pain Copper, Serum or Plasma Today D75.839 - Thrombocytosis, unspecified, R10.9 - Unspecified abdominal pain HIV - [facility] Today D75.839 - Thrombocytosis, unspecified, R10.9 - Unspecified abdominal pain Angiotensin Convert Enzyme Today D7.839 - Thrombocytosis, unspecified, R10.9 - Unspecified abdominal pain CRP Today D75.839 - Thrombocytosis, unspecified, R10.9 - Unspecified abdominal pain LDH Today D75.839 - Thrombocytosis, unspecified, R10.9 - Unspecified abdominal pain Anti-Mitochondrial AB Today D75.839 - Thrombocytosis, unspecified, R10.9 - Unspecified abdominal pain Erythrocyte Sed Rate Today D75.839 - Thrombocytosis, unspecified, R10.9 - Unspecified abdominal pain Prothrombin Time w/INR Today D75.839 - Thrombocytosis, unspecified, R10.9 - Unspecified abdominal pain Anti-Smooth Muscle ABS Today D75.839 - Thrombocytosis, unspecified, R10.9 - Unspecified abdominal pain Ferritin Today D75.839 - Thrombocytosis, unspecified, R10.9 - Unspecified abdominal pain Gastric Emptying Study Today D75.839 - Thrombocytosis, unspecified, R10.9 - Unspecified abdominal pain Miscellaneous Lab Procedure Today D75.839 - Thrombocytosis, unspecified I have examined the patient and the H&P has been reviewed. There are no clinical changes since date of exam.
[2023-07-04 08:10] LABS: Bedside Glucose 87 mg/dL (74-106)
--- NOTE | 2023-07-04 08:30 | EGD_PTH ---
PATIENT: INGRIS MATSON LOC: EN U#:[id number] AGE/SX: 57/M ROOM: RE07/04/[address]: Dr. Ray Kaye DO : 1965 BED: DIS: 07/04/2023 SPEC #: [id number] RECD: 07/04/23 13:52 STATUS: SINTIA STEPHANIE #: [id number] ALAINA: 07/04/23 08:[address]: Ray Kaye DEPT: SURGICAL PATHOLOGY RECD BY: Jessica Andersen ENTERED: 07/05/23 07:40 SP TYPE: EGD BIOPSY OT DR: Dr. Ravindra Durham MD Tissues: A - Duodenum, NOS B - Esophagus, NOS Procedures: Special Stain Group II Surgery Specimen Level IV Alcian Blue/PAS (control) HEADER OPERATION: EGD with biopsy PRE-OP DIAGNOSIS: Thrombocythemia TISSUE SUBMITTED: A - Duodenum biopsy, B - Distal esophagus biopsy MICROSCOPIC DIAGNOSIS A. Duodenum, biopsy: Fragments of duodenal mucosa with focal gastric metaplasia. B. Distal esophagus, biopsy: Fragments of gastroesophageal mucosa with focal intestinal metaplasia (goblet cell metaplasia), consistent with Villalba's esophagus. Chronic inflammation. Negative for dysplasia. See comment. SJ:rg 07/06/2023 COMMENT B. Alcian blue/PAS stain with matched control is used in the evaluation of the specimen. Immunohistochemistry ([id number]) for P53 and Ki-67 will be performed and results will be reported separately. MICROSCOPIC DESCRIPTION Slides are reviewed. GROSS DESCRIPTION A - Received in fixative is one container labeled with the patient's name and designated duodenum biopsy. The specimen consists of two irregular fragments of light cheng soft tissue that in aggregate measure 0.6 x 0.3 x 0.1 cm. The specimen is totally submitted in one cassette. B - Received in fixative is one container labeled with the patient's name and designated distal esophagus biopsy. The specimen consists of two irregular fragments of light cheng soft tissue that in aggregate measure 0.8 x 0.4 x 0.1 cm. The specimen is totally submitted in one cassette. / SJ:ivon 07/05/2023 TC:5 CPT: 91866 x2, 08317
[2023-07-04 08:50] VITALS: BP 121/60; BP 174/73; PULSE 62; RESP 16; TEMP 36.6; O2SAT 97
--- NOTE | 2023-07-04 08:54 | OP.EGD_ITS ---
Patient Name: Joel Morrow Procedure Date: 07/04/2023 8:31 AM Date of : 1965 Age: 57 Procedure: Upper GI endoscopy Indications: Epigastric abdominal pain, Functional Dyspepsia Providers: Ray Kaye DO Referring MD: Ravindra Durham MD Medicines: Monitored Anesthesia Care Patient Profile: This is a 57 year old male. Refer to note in patient chart for documentation of history and physical. Patient has symptoms of chronic abdominal cramping, chronic abdominal distention and chronic epigastric abdominal pain. Complications: No immediate complications. Procedure: Pre-Anesthesia Assessment: - Prior to the procedure, a History and Physical was performed, and patient medications and allergies were reviewed. The patient is competent. The risks and benefits of the procedure and the sedation options and risks were discussed with the patient. All questions were answered and informed consent was obtained. Patient identification and proposed procedure were verified by the physician in the pre-procedure area. Mental Status Examination: alert and oriented. Airway Examination: normal oropharyngeal airway and neck mobility. Respiratory Examination: clear to auscultation. CV Examination: normal. Prophylactic Antibiotics: The patient does not require prophylactic antibiotics. Prior Anticoagulants: The patient has taken no anticoagulant or antiplatelet agents. ASA Grade Assessment: III - A patient with severe systemic disease. After reviewing the risks and benefits, the patient was deemed in satisfactory condition to undergo the procedure. The anesthesia plan was to use monitored anesthesia care (MAC). Immediately prior to administration of medications, the patient was re-assessed for adequacy to receive sedatives. The heart rate, respiratory rate, oxygen saturations, blood pressure, adequacy of pulmonary ventilation, and response to care were monitored throughout the procedure. The physical status of the patient was re-assessed after the procedure. After obtaining informed consent, the endoscope was passed under direct vision. Throughout the procedure, the patient's blood pressure, pulse, and oxygen saturations were monitored continuously. The gastroscope was introduced through the mouth, and advanced to the second part of duodenum. The upper GI endoscopy was accomplished without difficulty. The patient tolerated the procedure well. Scope In: 8:38:56 AM Scope Out: 8:43:36 AM Total Procedure Duration Time 0 hours 4 minutes 40 seconds Findings: The Z-line was irregular and was found 40 cm from the incisors. Biopsies were taken with a cold forceps for histology. Verification of patient identification for the specimen was done. Estimated blood loss was minimal. The entire examined stomach was normal. An acquired benign-appearing, intrinsic moderate stenosis was found in the first portion of the duodenum and was traversed. Biopsies were taken with a cold forceps for histology. Verification of patient identification for the specimen was done. Estimated blood loss was minimal. Impression: - Z-line irregular, 40 cm from the incisors. Biopsied. - Normal stomach. - Acquired duodenal stenosis. Biopsied. Recommendation: - Discharge patient to home. - Resume previous diet. - Continue present medications. - Await pathology results. Procedure Code(s): --- Professional --- 20671, Esophagogastroduodenoscopy, flexible, transoral; with biopsy, single or multiple CPT copyright 2021 [employer]. All rights reserved. The codes documented in this report are preliminary and upon special programs director review may be revised to meet current compliance requirements. Ray Kaye DO 07/04/2023 8:54:05 AM This report has been signed electronically. Number of Addenda: 0 Note Initiated On: 07/04/2023 8:31 AM
--- NOTE | 2023-07-04 08:54 | OP.CCLET_ITS ---
07/04/2023 Ravindra Durham MD [address] [place] [address] Re : Upper GI endoscopy procedure for Joel Cristhian Dear Dr. Durham This procedure was performed on Tuesday, July 04, 2023. My impressions and recommendations are as follows: Impressions : - Z-line irregular, 40 cm from the incisors. Biopsied. - Normal stomach. - Acquired duodenal stenosis. Biopsied. Recommendations : - Discharge patient to home. - Resume previous diet. - Continue present medications. - Await pathology results. My findings are described in the full procedure note, which is enclosed. If I can be of further assistance, please feel free to contact me at . Sincerely, Ray Kaye, 07/04/2023 8:54:05 AM This report has been signed electronically.
[2023-07-04 08:55] VITALS: BP 108/56; BP 174/73; PULSE 65; RESP 16; O2SAT 99
[2023-07-04 09:00] VITALS: BP 113/63; BP 174/73; PULSE 67; RESP 16; O2SAT 98
[2023-07-04 09:05] VITALS: BP 118/60; BP 174/73; PULSE 63; RESP 16; TEMP 36.6; O2SAT 97
[2023-07-04 09:21] VITALS: BP 174/73
--- NOTE | 2023-07-06 | IMM_PTH ---
PATIENT: INGRIS MATSON LOC: EN U#:[id number] AGE/SX: 57/M ROOM: RE07/04/[address]: Dr. Ray Kaye DO : 1965 BED: DIS: 07/04/2023 SPEC #: [id number] RECD: 07/06/23 13:54 STATUS: SINTIA REQ #: [id number] ALAINA: 07/06/23 00:[address]: Ray Kaye DEPT: IMMUNOHISTOCHEMISTRY RECD BY: Cheri Joseph ENTERED: 07/06/23 13:55 SP TYPE: IMMUNO OT DR: Dr. Ravindra Durham MD Tissues: B - Esophagus, NOS Procedures: P53 (initial) KI-67 (add) PHYSICIAN & INSTITUTION [place] [address] SPECIMEN INFORMATION: Tissue Source: B - Distal esophagus Clinical Info: Thrombocythemia Specimen Number: [id number] CPT code: 38319, 28124 METHODOLOGY: Deparaffinized sections of prefer/formalin-fixed tissue or PAP/DQ stained slides are incubated with monoclonal/polyclonal antibodies/oligonucleotide probes. Localization is made via biotin free immunoperoxidase method. Appropriate controls are performed and reacted as expected. Results on target cell population are indicated in the following table: RESULTS: ANTIBODY / CLONE RESULT Block B P53 (DO-7) negative (null pattern) Ki-67 (30-9) positive, low These tests were developed and their performance characteristics determined by [facility]. They may not have been cleared or approved by the U.S. Food and Drug Administration. The FDA has determined that such clearance or approval is not necessary. The above immunohistochemical/dualISH markers are ordered and reviewed by the Pathologist. INTERPRETATION: B. Distal esophagus, biopsy: Negative for dysplasia. DEREK:ivon 07/07/2023
== END 2023-07-04 09:39 | disposition home or self-care (01) ==
LOC: EN 07:14 → AC 07:17
PROVIDERS: PCP Family Medicine Geriatric Medicine; Referring Provider Family Medicine Geriatric Medicine; Visit Provider Internal Medicine Gastroenterology
PROC: 0DJ08ZZ Inspection of Upper Intestinal Tract, Via Natural or Artificial Opening Endoscopic (ICD-10-PCS; CPT 43235; principal; 2023-07-04 08:25)
DX: K22.70 Barrett's esophagus without dysplasia (principal); Z79.4 Long term (current) use of insulin; E11.9 Type 2 diabetes mellitus without complications; K31.5 Obstruction of duodenum; I10 Essential (primary) hypertension; Z86.711 Personal history of pulmonary embolism; G47.30 Sleep apnea, unspecified; Z87.891 Personal history of nicotine dependence; Z79.899 Other long term (current) drug therapy; Z79.84 Long term (current) use of oral hypoglycemic drugs
CPT/HCPCS: 43239; 82962; 88305; 88313; 88341; 88342; J7120; J2405

== ENCOUNTER → 2023-07-19 | Outpatient (CLI) | payer OTHER, SELFPAY ==
[2023-07-19 16:41] LABS: Absolute Lymphocyte Count 1.64 X10^3/uL (0.83-4.51); Absolute Neutrophil Count 3.5 X10^3/uL (2.0-7.7); Basophil# 0.03 X10^3/uL; Basophil% 0.5 % (0-1); Eosinophil# 0.15 X10^3/uL; Eosinophils% 2.6 % (0-5); Hematocrit 39.1 % (40-54); Hemoglobin 11.8 g/dL (13.0-16.5); Lymphocyte # 1.64 X10^3/ul (0.83-4.51); Lymphocyte % 28.2 % (19-41); Mean Corp Hgb Conc 30.2 g/dL (32-36); Mean Corpuscular Hgb 26.3 pg (27.0-32.0); Mean Corpuscular Volume 87.3 fL (80-94); Mean Platelet Vol. 11.7 fl (6.2-12.0); Monocyte# 0.47 X10^3/uL; Monocyte% 8.1 % (0-10); NRBC Flagged by Analyzer 0 % (0-5); Neutrophil # 3.49 X10^3/uL (2.7-7.7); Neutrophil % 60.1 % (47-70); POSITIVE COUNT YES; Platelet Count 81 K/mm3 (150-450); RBC Distribution Width CV 14.6 % (11.6-14.6); Red Blood Count 4.48 M/mm3 (4.6-6.2); White Blood Count 5.8 K/mm3 (4.4-11.0)
[2023-07-19 17:16] LABS: ALB/GLOB Ratio 0.8 RATIO (0.9-2.4); AST(SGOT) 43 U/L (15-37); Alanine Aminotransfer ALT/SGPT 59 U/L (16-61); Albumin, Serum 3.3 g/dL (3.2-5.0); Alkaline Phosphatase 159 U/L (45-117); Anion Gap 4 (5-15); BUN 22 mg/dL (7-18); BUN/Creat Ratio 27.6 RATIO (10-20); Calcium,Total 9.2 mg/dL (8.5-10.1); Chloride 107 mmol/L (98-107); EST Glomerular Filtration Rate 107 mL/min (>60); Est Glom Filt Rate - Afr Amer 129 mL/min (>60); Glucose 193 mg/dL (74-106); PSA,Total - Annual Screen 0.06 ng/mL (0.00-4.00); Potassium 3.9 mmol/L (3.5-5.1); Protein, Total 7.3 g/dL (6.4-8.2); Sodium Level 138 mmol/L (136-145); Thyroid Stim Hormone (TSH) 1.51 uIU/mL (0.358-3.74)
== END | disposition home or self-care (01) ==
LOC: POLAB3 15:40
PROVIDERS: PCP Family Medicine Geriatric Medicine; Visit Provider Family Medicine Geriatric Medicine
DX: E11.65 Type 2 diabetes mellitus with hyperglycemia (principal); I10 Essential (primary) hypertension; Z12.5 Encounter for screening for malignant neoplasm of prostate
CPT/HCPCS: 36415; 80053; 84153; 84443; 85025; G0103

== ENCOUNTER → 2023-09-01 | Outpatient (CLI) | payer OTHER, SELFPAY | END | disposition home or self-care (01) | LOC: PSN 06:44 | PROVIDERS: PCP Family Medicine Geriatric Medicine; Referring Provider Family Medicine Geriatric Medicine; Visit Provider Family Medicine Geriatric Medicine | DX: R68.83 Chills (without fever) (principal) | CPT/HCPCS: 87635; 87804; 87807 ==

== ENCOUNTER → 2023-10-20 | Outpatient (CLI) | payer OTHER, SELFPAY ==
[2023-10-20 17:47] LABS: Absolute Lymphocyte Count 2.16 X10^3/uL (0.83-4.51); Absolute Neutrophil Count 4.5 X10^3/uL (2.0-7.7); Basophil# 0.04 X10^3/uL; Basophil% 0.5 % (0-1); Eosinophil# 0.14 X10^3/uL; Eosinophils% 1.9 % (0-5); Hematocrit 39.1 % (40-54); Hemoglobin 12.2 g/dL (13.0-16.5); Lymphocyte # 2.16 X10^3/ul (0.83-4.51); Lymphocyte % 28.6 % (19-41); Mean Corp Hgb Conc 31.2 g/dL (32-36); Mean Corpuscular Hgb 26.9 pg (27.0-32.0); Mean Corpuscular Volume 86.1 fL (80-94); Mean Platelet Vol. 11.7 fl (6.2-12.0); Monocyte# 0.63 X10^3/uL; Monocyte% 8.3 % (0-10); NRBC Flagged by Analyzer 0 % (0-5); Neutrophil # 4.53 X10^3/uL (2.7-7.7); POSITIVE COUNT YES; Platelet Count 91 K/mm3 (150-450); RBC Distribution Width CV 14.6 % (11.6-14.6); RBC Distribution Width SD 45.4 fl (35.1-43.9); Red Blood Count 4.54 M/mm3 (4.6-6.2); White Blood Count 7.6 K/mm3 (4.4-11.0)
[2023-10-20 18:15] LABS: ALB/GLOB Ratio 0.9 RATIO (0.9-2.4); AST(SGOT) 34 U/L (15-37); Alanine Aminotransfer ALT/SGPT 38 U/L (16-61); Albumin, Serum 3.6 g/dL (3.2-5.0); Alkaline Phosphatase 115 U/L (45-117); Anion Gap 8 (5-15); BUN 36 mg/dL (7-18); BUN/Creat Ratio 27.9 RATIO (10-20); Calcium,Total 9.2 mg/dL (8.5-10.1); Chloride 106 mmol/L (98-107); Creatinine, Serum 1.29 mg/dL (0.70-1.30); EST Glomerular Filtration Rate 61 mL/min (>60); Est Glom Filt Rate - Afr Amer 74 mL/min (>60); Glucose 158 mg/dL (74-106); Potassium 4.1 mmol/L (3.5-5.1); Protein, Total 7.6 g/dL (6.4-8.2); Sodium Level 138 mmol/L (136-145); Thyroid Stim Hormone (TSH) 1.44 uIU/mL (0.358-3.74)
== END | disposition home or self-care (01) ==
LOC: POLAB3 15:39
PROVIDERS: PCP Family Medicine Geriatric Medicine; Visit Provider Family Medicine Geriatric Medicine
DX: E11.65 Type 2 diabetes mellitus with hyperglycemia (principal); I10 Essential (primary) hypertension
CPT/HCPCS: 36415; 80053; 84443; 85025

== ENCOUNTER → 2024-01-18 | Outpatient (CLI) | payer OTHER, SELFPAY ==
[2024-01-18 17:03] LABS: Absolute Lymphocyte Count 1.72 X10^3/uL (0.83-4.51); Absolute Neutrophil Count 4.4 X10^3/uL (2.0-7.7); Basophil# 0.02 X10^3/uL; Basophil% 0.3 % (0-1); Eosinophil# 0.14 X10^3/uL; Hematocrit 38.7 % (40-54); Lymphocyte # 1.72 X10^3/ul (0.83-4.51); Mean Corpuscular Hgb 26.3 pg (27.0-32.0); Mean Corpuscular Volume 84.9 fL (80-94); Mean Platelet Vol. 11.6 fl (6.2-12.0); Monocyte# 0.52 X10^3/uL; Monocyte% 7.6 % (0-10); NRBC Flagged by Analyzer 0 % (0-5); Neutrophil # 4.44 X10^3/uL (2.7-7.7); Neutrophil % 64.7 % (47-70); POSITIVE COUNT YES; Platelet Count 89 K/mm3 (150-450); RBC Distribution Width CV 14.6 % (11.6-14.6); RBC Distribution Width SD 44.3 fl (35.1-43.9); Red Blood Count 4.56 M/mm3 (4.6-6.2); White Blood Count 6.9 K/mm3 (4.4-11.0)
[2024-01-18 17:06] LABS: Prothrombin Time (Protime)PT. 13.2 SECONDS (11.7-14.9)
[2024-01-18 17:40] LABS: Hemoglobin A1c 7.3 % (3.8-5.6)
[2024-01-18 17:41] LABS: ALB/GLOB Ratio 0.9 RATIO (0.9-2.4); AST(SGOT) 40 U/L (15-37); Alanine Aminotransfer ALT/SGPT 38 U/L (16-61); Albumin, Serum 3.6 g/dL (3.2-5.0); Alkaline Phosphatase 123 U/L (45-117); Anion Gap 7 (5-15); BUN 41 mg/dL (7-18); CRP 3.76 mg/L (0.0-3.0); Calcium,Total 9.7 mg/dL (8.5-10.1); Chloride 105 mmol/L (98-107); Cholesterol 150 mg/dL (200); Creatinine, Serum 1.17 mg/dL (0.70-1.30); EST Glomerular Filtration Rate 68 mL/min (>60); Est Glom Filt Rate - Afr Amer 83 mL/min (>60); Ferritin 31 ng/mL (26-388); Globulin 3.8 g/dL (2.2-4.2); Glucose 113 mg/dL (74-106); High Density Lipoprotein 33 mg/dL; Iron 48 ug/dL (65-175); Iron Binding Capacity,Total 420 ug/dL (250-450); PERCENT IRON SATURATION 11.4 % (15.0-55.0); Potassium 4.5 mmol/L (3.5-5.1); Protein, Total 7.4 g/dL (6.4-8.2); Sodium Level 137 mmol/L (136-145); Triglycerides 429 mg/dL
[2024-01-18 17:45] LABS: Differential Indicated SCAN CRITERIA MET
[2024-01-18 17:46] LABS: Differential Comment SCANNED
[2024-01-20 03:07] LABS: AFP, Tumor Marker 2.4 ng/mL (0.0-8.4)
== END | disposition home or self-care (01) ==
LOC: POLAB3 15:34
PROVIDERS: Internal Medicine; PCP Family Medicine Geriatric Medicine; Visit Provider Family Medicine Geriatric Medicine
DX: E11.65 Type 2 diabetes mellitus with hyperglycemia (principal); D69.6 Thrombocytopenia, unspecified; I10 Essential (primary) hypertension; K76.0 Fatty (change of) liver, not elsewhere classified
CPT/HCPCS: 36415; 80053; 80061; 82105; 82728; 83036; 83540; 83550; 84443; 85025; 85610; 86140

== ENCOUNTER → 2024-04-25 | Outpatient (CLI) | payer OTHER, SELFPAY ==
[2024-04-25 17:16] LABS: Absolute Neutrophil Count 5.7 X10^3/uL (2.0-7.7); Basophil# 0.03 X10^3/uL; Basophil% 0.3 % (0-1); Eosinophil# 0.31 X10^3/uL; Eosinophils% 3.4 % (0-5); Hematocrit 40.8 % (40-54); Hemoglobin 12.7 g/dL (13.0-16.5); Mean Corp Hgb Conc 31.1 g/dL (32-36); Mean Corpuscular Hgb 26.2 pg (27.0-32.0); Mean Corpuscular Volume 84.1 fL (80-94); Mean Platelet Vol. 10.5 fl (6.2-12.0); Monocyte# 0.78 X10^3/uL; Monocyte% 8.5 % (0-10); NRBC Flagged by Analyzer 0 % (0-5); Neutrophil # 5.65 X10^3/uL (2.7-7.7); Neutrophil % 61.1 % (47-70); POSITIVE COUNT YES; Platelet Count 91 K/mm3 (150-450); RBC Distribution Width CV 14.6 % (11.6-14.6); RBC Distribution Width SD 44.2 fl (35.1-43.9); Red Blood Count 4.85 M/mm3 (4.6-6.2); White Blood Count 9.2 K/mm3 (4.4-11.0)
[2024-04-25 18:41] LABS: ALB/GLOB Ratio 0.9 RATIO (0.9-2.4); AST(SGOT) 36 U/L (15-37); Alanine Aminotransfer ALT/SGPT 34 U/L (16-61); Albumin, Serum 3.5 g/dL (3.2-5.0); Alkaline Phosphatase 103 U/L (45-117); Anion Gap 6 (5-15); BUN 34 mg/dL (7-18); BUN/Creat Ratio 23.9 RATIO (10-20); Calcium,Total 9.6 mg/dL (8.5-10.1); Chloride 108 mmol/L (98-107); Cholesterol 125 mg/dL (200); Creatinine, Serum 1.42 mg/dL (0.70-1.30); EST Glomerular Filtration Rate 55 mL/min (>60); Est Glom Filt Rate - Afr Amer 66 mL/min (>60); Globulin 4.1 g/dL (2.2-4.2); Glucose 66 mg/dL (74-106); High Density Lipoprotein 38 mg/dL; Potassium 4.1 mmol/L (3.5-5.1); Protein, Total 7.6 g/dL (6.4-8.2); Sodium Level 139 mmol/L (136-145); Thyroid Stim Hormone (TSH) 1.76 uIU/mL (0.358-3.74); Triglycerides 187 mg/dL; Very Low Density Lipoprotein 37 mg/dL (5-40)
[2024-04-26 01:44] LABS: Hemoglobin A1c 6.9 % (3.8-5.6)
== END | disposition home or self-care (01) ==
PROVIDERS: PCP Family Medicine Geriatric Medicine; Referring Provider Family Medicine Geriatric Medicine; Visit Provider Family Medicine Geriatric Medicine
DX: I10 Essential (primary) hypertension (principal); E11.65 Type 2 diabetes mellitus with hyperglycemia; E78.5 Hyperlipidemia, unspecified
CPT/HCPCS: 36415; 80053; 80061; 83036; 84443; 85025

== ENCOUNTER → 2024-07-13 | Outpatient (CLI) | payer OTHER, SELFPAY ==
[2024-07-13 09:54] LABS: Absolute Lymphocyte Count 1.66 X10^3/uL (0.83-4.51); Absolute Neutrophil Count 4.9 X10^3/uL (2.0-7.7); Basophil# 0.03 X10^3/uL; Basophil% 0.4 % (0-1); Eosinophil# 0.14 X10^3/uL; Eosinophils% 1.9 % (0-5); Hematocrit 41.7 % (40-54); Hemoglobin 12.8 g/dL (13.0-16.5); Lymphocyte # 1.66 X10^3/ul (0.83-4.51); Mean Corp Hgb Conc 30.7 g/dL (32-36); Mean Corpuscular Hgb 26.6 pg (27.0-32.0); Mean Corpuscular Volume 86.7 fL (80-94); Mean Platelet Vol. 11.6 fl (6.2-12.0); Monocyte# 0.48 X10^3/uL; Monocyte% 6.7 % (0-10); NRBC Flagged by Analyzer 0 % (0-5); Neutrophil # 4.85 X10^3/uL (2.7-7.7); Neutrophil % 67.3 % (47-70); POSITIVE COUNT YES; Platelet Count 72 K/mm3 (150-450); RBC Distribution Width CV 14.6 % (11.6-14.6); RBC Distribution Width SD 45.9 fl (35.1-43.9); Red Blood Count 4.81 M/mm3 (4.6-6.2); White Blood Count 7.2 K/mm3 (4.4-11.0)
[2024-07-13 10:36] LABS: International Normalized Ratio 1.1; Prothrombin Time (Protime)PT. 13.8 SECONDS (11.7-14.9)
[2024-07-13 10:57] LABS: ALB/GLOB Ratio 0.8 RATIO (0.9-2.4); AST(SGOT) 28 U/L (15-37); Alanine Aminotransfer ALT/SGPT 32 U/L (16-61); Albumin, Serum 3.2 g/dL (3.2-5.0); Alkaline Phosphatase 87 U/L (45-117); Anion Gap 6 (5-15); BUN 21 mg/dL (7-18); BUN/Creat Ratio 20.8 RATIO (10-20); CRP < 2.90 mg/L (0.0-3.0); Calcium,Total 9.9 mg/dL (8.5-10.1); Chloride 107 mmol/L (98-107); Cholesterol 119 mg/dL (200); Creatinine, Serum 1.01 mg/dL (0.70-1.30); EST Glomerular Filtration Rate 81 mL/min (>60); Est Glom Filt Rate - Afr Amer 98 mL/min (>60); Glucose 118 mg/dL (74-106); High Density Lipoprotein 42 mg/dL; Potassium 4.2 mmol/L (3.5-5.1); Protein, Total 7.2 g/dL (6.4-8.2); Sodium Level 139 mmol/L (136-145); Triglycerides 273 mg/dL; Very Low Density Lipoprotein 55 mg/dL (5-40)
[2024-07-13 12:21] LABS: Hemoglobin A1c 7.1 % (3.8-5.6)
== END | disposition home or self-care (01) ==
LOC: LAB 09:16
PROVIDERS: PCP Family Medicine Geriatric Medicine; Referring Provider Internal Medicine; Visit Provider Internal Medicine
DX: K76.0 Fatty (change of) liver, not elsewhere classified (principal); D69.6 Thrombocytopenia, unspecified; K22.70 Barrett's esophagus without dysplasia; K31.5 Obstruction of duodenum
CPT/HCPCS: 36415; 80053; 80061; 82306; 83036; 85025; 85610; 86140

== ENCOUNTER → 2024-07-23 | Outpatient (CLI) | payer OTHER, SELFPAY ==
[2024-07-23 17:26] LABS: Absolute Lymphocyte Count 1.72 X10^3/uL (0.83-4.51); Absolute Neutrophil Count 3.8 X10^3/uL (2.0-7.7); Basophil# 0.03 X10^3/uL; Basophil% 0.5 % (0-1); Eosinophil# 0.13 X10^3/uL; Hematocrit 39.8 % (40-54); Hemoglobin 12.3 g/dL (13.0-16.5); Lymphocyte # 1.72 X10^3/ul (0.83-4.51); Lymphocyte % 26.8 % (19-41); Mean Corp Hgb Conc 30.9 g/dL (32-36); Mean Corpuscular Hgb 26.7 pg (27.0-32.0); Mean Corpuscular Volume 86.3 fL (80-94); Mean Platelet Vol. 11.1 fl (6.2-12.0); Monocyte# 0.65 X10^3/uL; Monocyte% 10.1 % (0-10); NRBC Flagged by Analyzer 0 % (0-5); Neutrophil # 3.83 X10^3/uL (2.7-7.7); Neutrophil % 59.8 % (47-70); POSITIVE COUNT YES; Platelet Count 78 K/mm3 (150-450); RBC Distribution Width CV 14.6 % (11.6-14.6); RBC Distribution Width SD 46.2 fl (35.1-43.9); Red Blood Count 4.61 M/mm3 (4.6-6.2); White Blood Count 6.4 K/mm3 (4.4-11.0)
[2024-07-23 17:44] LABS: Hemoglobin A1c 7.1 % (3.8-5.6)
[2024-07-23 17:55] LABS: ALB/GLOB Ratio 0.8 RATIO (0.9-2.4); AST(SGOT) 34 U/L (15-37); Alanine Aminotransfer ALT/SGPT 44 U/L (16-61); Albumin, Serum 3.2 g/dL (3.2-5.0); Alkaline Phosphatase 115 U/L (45-117); Anion Gap 5 (5-15); BUN 28 mg/dL (7-18); BUN/Creat Ratio 23.9 RATIO (10-20); Calcium,Total 9.3 mg/dL (8.5-10.1); Chloride 109 mmol/L (98-107); Cholesterol 129 mg/dL (200); Creatinine, Serum 1.17 mg/dL (0.70-1.30); EST Glomerular Filtration Rate 68 mL/min (>60); Est Glom Filt Rate - Afr Amer 83 mL/min (>60); Glucose 207 mg/dL (74-106); High Density Lipoprotein 41 mg/dL; PSA,Total - Annual Screen 0.08 ng/mL (0.00-4.00); Potassium 4.6 mmol/L (3.5-5.1); Protein, Total 7.2 g/dL (6.4-8.2); Sodium Level 142 mmol/L (136-145); Triglycerides 219 mg/dL; Very Low Density Lipoprotein 44 mg/dL (5-40)
[2024-07-23 18:25] LABS: Microalbumin:Creatinine Ratio 2244.4 mg/g CRE (<30 mg/g CRE)
== END | disposition home or self-care (01) ==
LOC: LAB 16:46
PROVIDERS: PCP Family Medicine Geriatric Medicine; Referring Provider Family Medicine Geriatric Medicine; Visit Provider Family Medicine Geriatric Medicine
DX: E11.65 Type 2 diabetes mellitus with hyperglycemia (principal); I10 Essential (primary) hypertension; E78.5 Hyperlipidemia, unspecified; Z12.5 Encounter for screening for malignant neoplasm of prostate
CPT/HCPCS: 36415; 80053; 80061; 82043; 82570; 83036; 84153; 84443; 85025; G0103

== ENCOUNTER → 2024-08-14 | Outpatient (CLI) | payer OTHER, SELFPAY ==
--- NOTE | 2024-08-14 16:35 | RAD_ITS ---
STUDY: X-RAY - ABDOMEN/PELVIS REASON FOR EXAM: Male, 58 years old. DIARRHEA TECHNIQUE: 6 views COMPARISON: None. FINDINGS: Normal visualized lung bases. There is an unremarkable bowel gas pattern. There is no demonstrated free abdominal air. Cholelithiasis. Normal soft tissue structures. Normal visualized osseous structures. RAD/Abd Inc Decub and/or Erect IMPRESSION: Cholelithiasis. Electronically Signed: Andres Garcia DO at 17:50 EDT Reading Location ID and State: [facility] / [place] Tel [phone], Service support ,
[2024-08-14 17:11] LABS: Absolute Lymphocyte Count 1.85 X10^3/uL (0.83-4.51); Absolute Neutrophil Count 3.8 X10^3/uL (2.0-7.7); Basophil# 0.04 X10^3/uL; Basophil% 0.6 % (0-1); Eosinophil# 0.23 X10^3/uL; Eosinophils% 3.5 % (0-5); Hemoglobin 12.7 g/dL (13.0-16.5); Lymphocyte # 1.85 X10^3/ul (0.83-4.51); Lymphocyte % 28.2 % (19-41); Mean Corpuscular Hgb 26.6 pg (27.0-32.0); Mean Platelet Vol. 10.4 fl (6.2-12.0); Monocyte# 0.57 X10^3/uL; Monocyte% 8.7 % (0-10); NRBC Flagged by Analyzer 0 % (0-5); Neutrophil # 3.83 X10^3/uL (2.7-7.7); Neutrophil % 58.4 % (47-70); POSITIVE COUNT YES; Platelet Count 76 K/mm3 (150-450); RBC Distribution Width CV 14.3 % (11.6-14.6); RBC Distribution Width SD 44.5 fl (35.1-43.9); Red Blood Count 4.77 M/mm3 (4.6-6.2); White Blood Count 6.6 K/mm3 (4.4-11.0)
[2024-08-14 17:47] LABS: Differential Indicated SCAN CRITERIA MET
[2024-08-14 17:50] LABS: Anisocytosis RARE; Platelet Estimate MOD DEC (ADEQ); Red Cell Morphology NORM C+C NORMAL (NORM C&C)
[2024-08-14 18:16] LABS: ALB/GLOB Ratio 0.9 RATIO (0.9-2.4); AST(SGOT) 29 U/L (15-37); Alanine Aminotransfer ALT/SGPT 31 U/L (16-61); Albumin, Serum 3.5 g/dL (3.2-5.0); Alkaline Phosphatase 92 U/L (45-117); Anion Gap 6 (5-15); BUN 18 mg/dL (7-18); BUN/Creat Ratio 17.5 RATIO (10-20); Calcium,Total 10.2 mg/dL (8.5-10.1); Chloride 108 mmol/L (98-107); Creatinine, Serum 1.03 mg/dL (0.70-1.30); EST Glomerular Filtration Rate 79 mL/min (>60); Est Glom Filt Rate - Afr Amer 96 mL/min (>60); Globulin 4.1 g/dL (2.2-4.2); Glucose 135 mg/dL (74-106); Potassium 4.1 mmol/L (3.5-5.1); Protein, Total 7.6 g/dL (6.4-8.2); Sodium Level 142 mmol/L (136-145)
== END | disposition home or self-care (01) ==
PROVIDERS: PCP Family Medicine Geriatric Medicine; Referring Provider Family Medicine Geriatric Medicine; Visit Provider Family Medicine Geriatric Medicine
DX: R19.7 Diarrhea, unspecified (principal); I10 Essential (primary) hypertension; N39.0 Urinary tract infection, site not specified
CPT/HCPCS: 36415; 74018; 74019; 80053; 85025; 87077; 87086; 87088

== ENCOUNTER → 2024-08-16 | Outpatient (CLI) | payer OTHER, SELFPAY | END | disposition home or self-care (01) | LOC: PSN 07:14 | PROVIDERS: PCP Family Medicine Geriatric Medicine; Referring Provider Family Medicine Geriatric Medicine; Visit Provider Family Medicine Geriatric Medicine | DX: R68.83 Chills (without fever) (principal) | CPT/HCPCS: 87631 ==

== ENCOUNTER → 2024-08-22 | Outpatient (CLI) | payer OTHER, SELFPAY ==
--- NOTE | 2024-08-22 07:07 | US_ITS ---
INDICATION: GALLSTONES EXAMINATION: Ultrasound US Abdomen Limited (quadrant) TECHNIQUE: Barrios scale and color doppler imaging was performed of the right upper quadrant. COMPARISON: Prior study dated: FINDINGS: LIVER: The liver is enlarged measuring about 20 cm in length and is echogenic in texture. The portal vein is patent with normal hepatopedal flow. No focal hepatic lesion. There is no free fluid. GALLBLADDER AND BILIARY TREE: Multiple gallstones are seen. The gallbladder wall measures about 3 mm. The proximal common bile duct measures 5 mm, which is within normal limits for the patient''s age. Sonographic Garcia''s sign: Negative. PANCREAS: The pancreas is suboptimally visualized due to overlying bowel gas. RIGHT KIDNEY: Right kidney measures about 4.6 cm in length. The renal cortex measures 1.7 mm. No evidence of hydronephrosis US/Abdomen Limited IMPRESSION: 1. Hepatomegaly and hepatic steatosis. 2. Multiple gallstones. Electronically Signed: Jeff Skinner MD at 12:52 EDT ,
== END | disposition home or self-care (01) ==
PROVIDERS: PCP Family Medicine Geriatric Medicine; Referring Provider Family Medicine Geriatric Medicine; Visit Provider Family Medicine Geriatric Medicine
DX: K80.20 Calculus of gallbladder without cholecystitis without obstruction (principal)
CPT/HCPCS: 76705

== ENCOUNTER → 2024-09-06 | Outpatient (CLI) | payer OTHER, SELFPAY ==
--- OUTSIDE RECORDS SUMMARY | 2024-09-06 06:37 | XMS RPT_ITS | CCD ---
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 Name Role Phone ABBY RIVERA Unavailable Unavailable DREW PALENCIA Unavailable Unavailable KELI LAUREANO Unavailable Unavailable HOLGER RUIZ Unavailable Unavailable ABBY RIVERA Unavailable Unavailable DREW PALENCIA Unavailable Unavailable BARBARA CASTILLO Unavailable Unavailable JANET MONTELONGO Unavailable Unavailable KELI LAUREANO Unavailable Unavailable Pcp, No Primary Care Provider Unavailabl e Unavailable Primary Care Provider Unavailabl e Medications Completed/Discontinued Medications Medication Drug Class(es) Dates Sig (Normalized) Sig (Original) 200 actuat albuterol 0.09 mg/actuat metered dose inhaler (1 source) beta2-Adrenergic Agonist take 2 puff(s) by inhalation every four hours as needed for wheezing albuterol HFA (VENTOLIN HFA) 90 mcg/actuation inhaler Inhale 2 Puffs as instructed every 4 hours as needed for Wheezing/Shortness of Breath. 0 Active Comment on above: Inhale 2 Puffs as in structed every 4 hours as needed for Wheezing/Shortness of Breath. baclofen 10 mg oral tablet (1 source) gamma-Aminobutyric Acid-ergic Agonist take 1 tablet by mouth once daily at bedtime baclofen (LIORESAL) 10 mg tablet Take 10 mg by mouth daily at bedtime. 0 Active Comment on above: Take 10 mg by mouth daily at bedtime. diclofenac sodium 50 mg delayed release oral tablet (1 source) Nonsteroidal Anti-inflammatory Drug take 1 tablet by mouth twice daily at mealtime diclofenac, EC, (VOLTAREN) 50 mg EC tablet Take 50 mg by mouth twice daily. With food 0 Active Comment on above: Take 50 mg by mouth twice daily. With food empagliflozin 25 mg oral tablet (1 source) Sodium-Glucose Cotransporter 2 Inhibitor take 1 tablet by mouth once daily empagliflozin (JARDIANCE) 25 mg tablet Take 25 mg by mouth once daily. 0 Active Comment on above: Take 25 mg by mouth once daily. escitalopram 10 mg oral tablet (1 source) Serotonin Reuptake Inhibitor take 1 tablet by mouth once daily escitalopram oxalate (LEXAPRO) 10 mg tablet Take 10 mg by mouth once daily. 0 Active Comment on above: Take 10 mg by mouth once daily. furosemide 40 mg oral tablet (1 source) Loop Diuretic Start: 04-04-2018 take 1 tablet by mouth once daily furosemide (LASIX) 40 mg tablet Take 1 tablet by mouth once daily. 5 tablet 0 04/04/2018 Active Comment on above: Take 1 tablet by lorie th once daily. gabapentin 400 mg oral capsule (1 source) Anti-epileptic Agent take 1 capsule by mouth three times daily gabapentin (NEURONTIN) 400 mg capsule Take 400 mg by mouth three times daily. 0 Active Comment on above: Take 400 mg by mouth three times daily. 3 ml insulin degludec 100 unt/ml / liraglutide 3.6 mg/ml pen injector (1 source) Insulin Analog, GLP-1 Receptor Agonist insulin degludec-liragluti de (XULTOPHY) 100 unit-3.6 mg/mL Inject 50 Units subcutaneously once daily. Do not mix with other insulins. 0 Active Comment on above: Inject 50 Units subc utaneously once daily. Do not mix with other insulins. linagliptin 5 mg oral tablet (1 source) Dipeptidyl Peptidase 4 Inhibitor take 1 tablet by mouth once daily linagliptin (TRADJENTA) 5 mg tab Take 1 tablet by mouth once daily. 0 Active Comment on above: Take 1 tablet by lorie th once daily. losartan potassium 100 mg oral tablet (1 source) Angiotensin 2 Receptor Martha take 1 tablet by mouth once daily losartan (COZAAR) 100 mg tablet Take 100 mg by mouth once daily. 0 Active Comment on above: Take 100 mg by mouth once daily. metFORMIN hydrochloride 1000 mg oral tablet (1 source) Biguanide take 1 tablet by mouth twice daily at mealtime metFORMIN (GLUCOPHAGE) 1,000 mg tablet Take 1,000 mg by mouth twice daily with meals. 0 Active Comment on above: Take 1,000 mg by lorie th twice daily with meals. microencapsulated potassium chloride 20 meq extended release oral tablet (1 source) Start: 04-05-2018 take 1 tablet by mouth once daily potassium chloride ER (K-DUR, KLOR-CON) 20 mEq tablet Take 1 tablet by mouth once daily. 5 tablet 0 04/05/2018 Active Comment on above: Take 1 tablet by lorie th once daily. rosuvastatin calcium 40 mg oral tablet (1 source) HMG-CoA Reductase Inhibitor take 1 tablet by mouth once daily at bedtime rosuvastatin (CRESTOR) 40 mg tablet Take 40 mg by mouth daily at bedtime. 0 Active Comment on above: Take 40 mg by mouth daily at bedtime. 60 actuat testosterone 20.25 mg/actuat topical gel (1 source) Androgen testosterone (ANDROGEL) 20.25 mg/1.25 gram (1.62 %) glpm Apply 2 pumps as directed once daily. 0 Active Comment on above: Apply 2 pumps as dir ected once daily. Problems Active Problems Problem Classification Problem Date Documented Da te Episodic/Chronic Cardiac dysrhythmias (3 sources) Atrial fibrillation with rapid ventricular response; Translations: [Atrial fibrillation with RVR] Onset: 03-24-2018 03-26-2018 Chronic Deficiency and other anemia (1 source) Anemia, unspecified; Translations: [Anemia, unspecified] Onset: 03-24-2018 Episodic Diabetes mellitus without complication (3 sources) Diabetes mellitus; Translations: [Diabetes] Onset: 03-26-2018 03-26-2018 Chronic Nutritional deficiencies (3 sources) Malnutrition (calorie); Translations: [Malnutrition of moderate degree] Onset: 03-25-2018 03-25-2018 Chronic Other nutritional; endocrine; and metabolic disorders (3 sources) Morbid obesity; Translations: [Obesity, Class III, BMI 40-49.9 (morbid obesity)] Onset: 03-25-2018 03-26-2018 Chronic Other nutritional; endocrine; and metabolic disorders (3 sources) Obese class II; Translations: [Obesity, Class II, BMI 35-39.9] Onset: 04-03-2018 04-03-2018 Pleurisy; pneumothorax; pulmonary collapse (1 source) Pleural effusion, not elsewhere classified; Translations: [Pleural effusion, not elsewhere classified] Onset: 03-24-2018 Episodic Residual codes; unclassified (3 sources) Obstructive sleep apnea syndrome; Translations: [Obstructive sleep apnea] Onset: 03-26-2018 03-26-2018 Chronic Substance-related disorders (3 sources) Nicotine dependence; Translations: [Nicotine use disorder] Onset: 03-25-2018 03-26-2018 Chronic Unclassified (2 sources) Obstructive sleep apnea (adult) (pediatric); Translations: [Dependence on other enabling machines and devices] Onset: 03-24-2018 Chronic Unclassified (1 source) Unknown / UNK(Unknown) Onset: 03-26-2018 Past or Other Problems Problem Classification Problem Date Documented Da te Episodic/Chronic Deficiency and other anemia (3 sources) Anemia; Translations: [Anemia] Onset: 8 03-24-2018 Episodic Gastrointestinal hemorrhage (4 sources) Gastrointestinal hemorrhage, unspecified; Translations: [Gastrointestinal hemorrhage] Onset: 8 03-26-2018 Episodic Gastrointestinal hemorrhage (1 source) Gastrointestinal hemorrhage Onset: Pulmonary heart disease (4 sources) Other pulmonary embolism without acute cor pulmonale; Translations: [Pulmonary embolism] Onset: 8 03-26-2018 Episodic Results Test Name Value Interpretation Reference Range Facility [facility] 04-04-2018 ALLIED HEALTH HNO ID: [id number] thor: Oksana (Rn) JUAN RAMON Magallaneservice: Home Care ServicesAuthor Type: Registered NurseType: Allied HealthFiled: 04/04/2018 12:52 PMNote Text:PENSIONS RETIREMENT PLAN SPECIALIST NOTESERVICE DATE: 04/04/2018SERVICE TIME: 12:52 PMNo home care needs noted at discharge. No home care set upSIGNATURE: Oksana Magallanes RN PATIENT NAME: Joel HiserDATE: April 04, 2018 : 12:52 PM Normal [facility] Basic Panelon 04-04-2018 Creatinine 0.59 mg/dL Low 0.67-1.17 [facility] Comment on above: Performed By: #### G FR ####[place] [address] Anion gap 8 mmol/L Normal 8-16 [facility] Comment on above: Performed By: #### G FR ####[place] [address] CO2 29 mmol/L Normal - [facility] Comment on above: Performed By: #### G FR ####[facility] [place], [place] [address] Glucose mass conc 196 mg/dL High 70-99 [facility] Comment on above: Performed By: #### G FR ####[facility] [place], [place] [address] Urea nitrogen 7 mg/dL Normal 7-18 [facility] Comment on above: Performed By: #### G FR ####[facility] [place], [place] [address] Calcium 8.6 mg/dL Normal 8.5-10.1 [facility] Comment on above: Performed By: #### G FR ####[facility] [place], [place] [address] Chloride 104 mmol/L Normal 98-107 [facility] Comment on above: Performed By: #### G FR ####[address] [address] Potassium molar conc 3.7 mmol/L Normal 3.5-5.1 [facility] Comment on above: Performed By: #### G FR ####[address] [address] Sodium 137 mmol/L Normal 136-145 [facility] Comment on above: Performed By: #### G FR ####[address] [address] CASE MANAGEMon 04-04-2018 CASE MANAGEM HNO ID: [id number] thor: Breann (Rn) Lela RNService: Care ManagementAuthor Type: Registered NurseType: Care Mgt Progress NoteFiled: 04/04/2018 10:19 AMNote Text:CT removed. Per ID note, antic D/C with PO atbx. Discharge plan remainshome with spouse when medically ready for discharge. Normal [facility] CNDSon 04-04-2018 CNDS HNO ID: [id number] thor: JERARDO Millanervice: Hospital MedicineAuthor Type: PhysicianType: Discharge SummariesFiled: 04/04/2018 12:45 PMNote Text:DISCHARGE SUMMARYADMISSION DATE: 03/24/2018DISCHARGE DATE: 04/04/2018Attending Physician: Nissa Millan for Hospitalization: shortness of breathFinal Diagnoses: empyema Active Hospital Problems Obesity, Class II, BMI 35-39.9 [E66.9] Obstructive sleep apnea [G47.33] Diabetes (HCC) [E11.9] Nicotine use disorder, F17.2 [F17.200] Obesity, Class III, BMI >= 40 [E66.01] Malnutrition of moderate degree (HCC) [E44.0] Anemia [D64.9] Atrial fibrillation with RVR ([facility]) [I48.91] Pulmonary embolism ([facility]) [I26.99] GI bleed [K92.2]Operations During Hospitalization: noneProcedures During Hospitalization: chest tube placementHospital Course:[facility] forsevere anemia, severe dyspnea, loculated left pleural effusion with leftlower lobe infiltrate and left lower lobe pulmonary embolism. He wasnoted to be in atrial fibrillation. He was suspected to have GI bleedingwith maroon colored stools. [place] here. He was admitted underthe Pulmonary Critical Care Service to the ICU. Vascular Surgery wasconsulted and has placed an IVC filter. Thoracic Surgery has beenconsulted and placed a chest tube. Gastroenterology has also beenconsulted, he had an upper GI endoscopy with biopsy showing 3 smallgastric ulcers, colonoscopy showed Diverticulosis without bleeding.Otherwise normal colon and terminal ileum. ID was consulted, urine showedPositive pneumococcal pneumonia antigen, patient was switched to Unasynand then to Augmentin on discharge, patient was having massive B/L LEswelling started on lasix IV, and switched to oral on discharge. Patientwas discharged home in stable condition to follow up with PCP in 1 week.Patient Condition @ Discharge: StableDischarge Disposition: Home/Self CareInformation Provided to Patient: Smoking Cessation Material GivenDischarge Medications: Current Discharge Medication ListSTART taking these medicationsamoxicillin-clavulanic acid (AUGMENTIN) 875 mgTake 875 mg by mouth every 12 hours.Qty: 7 tablet Refills: 0furosemide (LASIX) 40 mgTake 40 mg by mouth once daily.Qty: 5 tablet Refills: 0potassium chloride ER (K-DUR, KLOR-CON) 20 mEqTake 20 mEq by mouth once daily.Qty: 5 tablet Refills: 0CONTINUE these medications which have NOT CHANGEDempagliflozin (JARDIANCE) 25 mgTake 25 mg by mouth once daily.insulin degludec-liraglutide 50 UnitsInject 50 Units subcutaneously once daily. Do not mix with other insulins.testosterone 2 pumpsApply 2 pumps as directed once daily.metFORMIN (GLUCOPHAGE) 1,000 mgTake 1,000 mg by mouth twice daily with meals.linagliptin 1 tabletTake 1 tablet by mouth once daily.rosuvastatin (CRESTOR) 40 mgTake 40 mg by mouth daily at bedtime.losartan (COZAAR) 100 mgTake 100 mg by mouth once daily.diclofenac (EC) (VOLTAREN) 50 mgTake 50 mg by mouth twice daily. With foodbaclofen (LIORESAL) 10 mgTake 10 mg by mouth daily at bedtime.gabapentin (NEURONTIN) 400 mgTake 400 mg by mouth three times daily.escitalopram oxalate (LEXAPRO) 10 mgTake 10 mg by mouth once daily.albuterol HFA (PROVENTIL HFA, VENTOLIN HFA) 2 PuffsInhale 2 Puffs as instructed every 4 hours as needed forWheezing/Shortness of Breath.Future Appointments: follow up with pcp in 1 wk and pulmo in 2 weeksThis note was generated using AppScale Systemsation systemSIGNATURE: Drew Palencia MD PATIENT NAME: Joel MatsonDATE: April 04, 2018 : 9:21 AM HOSPITAL NUMBER: [phone] Normal [facility] Glucose Meteron 04-04-2018 Glucose mass conc 264 mg/dL High 70-99 [facility] Comment on above: Result Comment: INEZ Durand OTIFIED Performed By: #### G FR ####[address] [address] Glucose mass conc 209 mg/dL High 70-99 [facility] Comment on above: Performed By: #### G FR ####[address] [address] Hemogram/Diffon 04-04-2018 Abs Immature Grans 0.01 thou/cmm Normal 0.00-0.05 [facility] Comment on above: Performed By: #### G FR ####[facility]1 [place], [place] [address] Abs. Baso 0.01 thou/cmm Normal 0.01-0.08 [facility] Comment on above: Performed By: #### G FR ####[address] [address] Abs. Mckenzie 0.33 thou/cmm Normal 0.30-0.82 [facility] Comment on above: Performed By: #### G FR ####[address] [address] Abs. Neut (ANC) 0.93 thou/cmm Low 1.78-5.38 [facility] Comment on above: Performed By: #### G FR ####[address] [address] Basophils/100 WBC Auto (Bld) 0.4 % Normal [facility] Comment on above: Performed By: #### G FR ####[address] [address] Eosinophils 0.04 thou/cmm Normal 0.04-0.54 [facility] Comment on above: Performed By: #### G FR ####[address] [address] Eosinophils/100 leukocytes 1.7 % Normal [facility] Comment on above: Performed By: #### G FR ####[address] [address] Immature Grans 0.40 % Normal [facility] Comment on above: Performed By: #### G FR ####[address] [address] Lymphocytes 1.01 thou/cmm Normal 0.84-2.85 [facility] Comment on above: Performed By: #### G FR ####[address] [address] Lymphocytes/100 leukocytes 43.3 % Normal [facility] Comment on above: Performed By: #### G FR ####[place] [address] Monocytes/100 leukocytes 14.2 % Normal [facility] Comment on above: Performed By: #### G FR ####[facility]1 [place] [address] Seg Neutrophil 40.0 % Normal [facility] Comment on above: Performed By: #### G FR ####[place] [address] Erythrocyte distribution width Auto Ratio (RBC) 16.0 % High 11.6-14.4 [facility] Comment on above: Performed By: #### G FR ####[place] [address] Erythrocytes (RBC) 3.02 mil/cmm Low 4.63-6.08 [facility] Comment on above: Performed By: #### G FR ####[place] [address] Hematocrit (HCT) 27.7 % Low 40.1-51.0 [facility] Comment on above: Performed By: #### G FR ####[place] [address] Hemoglobin mass conc (Bld) 9.2 g/dL Low 13.7-17.5 [facility] Comment on above: Performed By: #### G FR ####[place] [address] MCH 30.5 pg Normal 25.7-32.2 [facility] Comment on above: Performed By: #### G FR ####[place] [address] MCHC mass conc (RBC) 33.2 % Normal 32.3-36.5 [facility] Comment on above: Performed By: #### G FR ####[place] [address] MCV 91.7 fL Normal 83.2-95.6 [facility] Comment on above: Performed By: #### G FR ####[place] [address] Platelet mean volume (PMV) 9.9 fL Normal 8.7-12.0 [facility] Comment on above: Performed By: #### G FR ####[facility]1 [place], [place] [address] Platelets 126 thou/cmm Low 141-365 [facility] Comment on above: Performed By: #### G FR ####[facility] [place], [place] [address] RDW SD 52.3 fl High 36.1-45.8 [facility] Comment on above: Performed By: #### G FR ####[facility] [place], [place] [address] WBC (Leukocytes) 2.33 thou/cmm Low 4.23-9.07 [facility] Comment on above: Performed By: #### G FR ####[facility] [place], [place] [address] MDRD GFRon 04-04-2018 eGFR (non-black) mL/min/{1.73_m2} Normal >60mL/m in/ 1.73m2 [facility] Comment on above: Result Comment: If t he patient is , multiply the result by 1.210. Performed By: #### G FR ####[address] [address] PLAN OF CAREon 04-04-2018 PLAN OF CARE HNO ID: [id number] thor: JERARDO Millanervice: [facility] MedicineAutho Type: PhysicianType: Plan of CareFiled: 04/04/2018 12:47 PMNote Text: [facility] 04/04/2018Joel Matson[address] [facility] [place] [address] RE: Joel Santiago is to certify that Joel Matson is under my care and will be able toreturn to work on April 13, 2018 .The following restrictions are placed on this person:No restrictions..Required to take medication during active hours: No .If you have any further questions, feel free to contact my office.Best Regards,Drew Palencia MD(Signed electronically to expedite mailing)12:45 PM 04/04/2018 [facility] CNDSyoandy 04-03-2018 CNDS HNO ID: [id number] thor: JERARDO Millanervice: Hospital MedicineAuthor Type: PhysicianType: Discharge SummariesFiled: 04/03/2018 3:48 PMNote Text:INTERNAL MEDICINE PROGRESS NOTEPatient Name: Joel MatsonDAKEMAL OF : 1965MRN: [id number] HISTORY:Patient was seen and examined, complaints of LE swelling, denies any chestpain or shortness of breath. Had his chest tube removed yesterday.MEDICATIONS:Current hospital medications:furosemide 40 mg injection (LASIX) 40 mg INTRAVENOUS DAILYpotassium chloride ER 20 mEq tab(s) (K-DUR, KLOR-CON) 20 mEq ORAL DAILYampicillin-sulbactam 3 g in NaCl 0.9% 100 mL MB+ (UNASYN) 3 g INTRAVENOUSq 6 HoxyCODONE IR 5-10 mg tab(s) (ROXICODONE) 5-10 mg ORAL q 4 H PRNmorphine 4 mg injection 4 mg INTRAVENOUS q [address] 40 mg tab(s) (PROTONIX) 40 mg ORAL BID AC (0600/1600)insulin regular human injection (short acting) (NovoLIN R,HumuLIN R)SUBCUTANEOUS w MEALS AND HSdextrose 40 % 15 g 15 g ORAL PRNglucagon 1 mg injection (GLUCAGEN) 1 mg INTRAMUSCULAR PRNdextrose 50% in water 25 mL syringe 12.5 g INTRAVENOUS PRNprochlorperazine 5 mg injection (COMPAZINE) 5 mg INTRAVENOUS q 6 H PRNPHYSICAL EXAM:VITAL SIGNSPatient Vitals for the past 24 hrs: BP Temp Temp src Pulse Resp ArJ47504/03/18 0700 134/65 36.1 ?C (97 ?F) Temporal Art 73 18 100 %04/03/18 0335 138/82 36.1 ?C (97 ?F) Temporal Art 75 18 100 %04/02/18 2315 127/64 36.6 ?C (97.9 ?F) Temporal Art 75 18 98 %04/02/18 1915 113/62 36.4 ?C (97.5 ?F) Temporal Art 77 18 99 %Temp (24hrs), Av.3 ?C (97.4 ?F), Min:36.1 ?C (97 ?F), Max:36.6 ?C(97.9 ?F)Body mass index is 39.59 kg/m?.INTAKE/OUTPUTIntake/Output 03/30/18 07 - 03/31/18 0659 03/31/18 07 - 04/01/18 0659 0 - 04/02/18 0659 04/02/[address] - 04/03/18 0659 04/03/18 07 -04/04/18 0659 Intake (ml) 960 6008 130 7166 580 Output (ml) 283 67 125 4 4 Net (ml) 677 3504 687 9629 576GENERAL: alert, no distress, cooperativeLUNGS: Lungs clear to auscultation. Good diaphragmatic excursion.CARDIAC: Normal S1 and S2; no rubs, murmurs, or gallopsABDOMEN: Abdomen soft, non-tender. BS normal. No masses or organomegaly.EXTREMITIES: B/L LE pitting edemaLAB DATA:CBC:Recent Labs 03/31/1807WBC 2.35* 3.23* 3.85* -- 3.38* -- 3.51*HB 8.3* 8.7* 8.1* 7.7* 7.8* 7.7* 7.3*HCT 26.5* 28.3* 25.9* -- 25.1* -- 23.1*PLT 135* 107* 121* -- 105* -- 75*MCV 88.9 92.5 91.5 -- 92.3 -- 92.0BMP:Recent Labs 03/31/1807GLUC 183* 171* 163* 188* 121*NA 139 136 139 142 141K 3.9 3.9 3.9 3.6 3.7CHLOR 104 103 108* 111* 112*CO2 32 28 28 26 23ANION 7* -- -- -- 10BUN 5* 5* 4* 6* 4*CREAT 0.59* 0.50* 0.52* 0.61* 0.54*CHEM:Recent Labs 03/31/1807318ALB -- 2.2* 2.3* 1.8* --CA 8.4* 8.5 8.3* 8.0* 7.4*P -- 3.3 2.9 2.4* --ASSESSMENT AND PLAN:1. Strep pneumococcal pneumonia(LLL) ?with left parapneumonic effusion s/pchest tube placement.- ?Appreciate ID and CT surgery input.- on antibiotics - Unasyn to continue antibiotics till 04/07/18. Will changeto Augmentin 875 mg on d/c.- CT removed yesterday- Pleural Cx negative to date- Cytology negative- pain control- Likely D/C home tomorrow?2. GI bleeding with EGD evidence of 3 antral ulcers -clean based. Noevidence of Lower GI bleeding. Counseled on the need to stop NSAIDs.H.pylori negative on antral biopsy.3. Acute blood loss anemia from #2. Stable H/H. No further interventionplanned. Continue monitoring4. A-fibrillation - Transient - resolved.5. DM - stable6. Peripheral edema - most probably 2ry to his DVT, Will start IV lasixfor 2 days while inpatient, will check kidney function tomorrow.7. Recent PE s/p IVC filter placementMAINTENANCE:VTE Prophylaxis: Pneumatic Compression DeviceGI PROPHYLAXIS: Pantoprazole 40mg PO dailyNUTRITION: Eating and drinking dietCONSULTATIONS ON CASE:IDCT surgeryActive Hospital Problems Obesity, Class II, BMI 35-39.9 [E66.9] Obstructive sleep apnea [G47.33] Diabetes (HCC) [E11.9] Nicotine use disorder, F17.2 [F17.200] Obesity, Class III, BMI >= 40 [E66.01] Malnutrition of moderate degree (HCC) [E44.0] Anemia [D64.9] Atrial fibrillation with RVR (HCC) [I48.91] Pulmonary embolism (HCC) [I26.99] GI bleed [K92.2]SIGNATURE:Drew Palencia MDThis note was generated using Encite dictation systemThis note is not final until staffed by the attending physician andauthenticated by responsible provider.SIGNATURE: Drew Palencia MD PATIENT NAME: Joel Maston Normal [facility] Glucose Meteron 04-03-2018 Glucose mass conc 272 mg/dL High 70-99 [facility] Comment on above: Result Comment: RN N OTIFIED Performed By: #### G FR ####[address] [address] Glucose mass conc 300 mg/dL High 70-99 [facility] Comment on above: Result Comment: RN N OTIFIED Performed By: #### G FR ####[address] [address] Glucose mass conc 203 mg/dL High 70-99 [facility] Comment on above: Result Comment: RN N OTIFIED Performed By: #### G FR ####[address] [address] Glucose mass conc 205 mg/dL High 70-99 [facility] Comment on above: Result Comment: RN N OTIFIED Performed By: #### G FR ####[address] [address] PROGRESSon 04-03-2018 PROGRESS HNO ID: [id number] thor: JERARDO Millanervice: Hospital MedicineAuthor Type: PhysicianType: Progress NotesFiled: 04/03/2018 3:50 PMNote Text:?INTERNAL MEDICINE PROGRESS NOTE?Patient Name: Joel MatsonDATE OF : 1965MRN: [id number]?INTERVAL HISTORY:Patient was seen and examined, complaints of LE swelling, denies any chestpain or shortness of breath. Had his chest tube removed yesterday.?MEDICATIONS:?Current hospital medications:furosemide 40 mg injection (LASIX) 40 mg INTRAVENOUS DAILYpotassium chloride ER 20 mEq tab(s) (K-DUR, KLOR-CON) 20 mEq ORAL DAILYampicillin-sulbactam 3 g in NaCl 0.9% 100 mL MB+ (UNASYN) 3 g INTRAVENOUSq 6 HoxyCODONE IR 5-10 mg tab(s) (ROXICODONE) 5-10 mg ORAL q 4 H PRNmorphine 4 mg injection 4 mg INTRAVENOUS q [address] 40 mg tab(s) (PROTONIX) 40 mg ORAL BID AC (0600/1600)insulin regular human injection (short acting) (NovoLIN R,HumuLIN R) ?SUBCUTANEOUS w MEALS AND HSdextrose 40 % 15 g 15 g ORAL PRNglucagon 1 mg injection (GLUCAGEN) 1 mg INTRAMUSCULAR PRNdextrose 50% in water 25 mL syringe 12.5 g INTRAVENOUS PRNprochlorperazine 5 mg injection (COMPAZINE) 5 mg INTRAVENOUS q 6 H PRN??PHYSICAL EXAM:?VITAL SIGNSPatient Vitals for the past 24 hrs:? BP Temp Temp src Pulse Resp RxC47404/03/18 0700 134/65 36.1 ?C (97 ?F) Temporal Art 73 18 100 %04/03/18 0335 138/82 36.1 ?C (97 ?F) Temporal Art 75 18 100 %04/02/18 2315 127/64 36.6 ?C (97.9 ?F) Temporal Art 75 18 98 %04/02/18 1915 113/62 36.4 ?C (97.5 ?F) Temporal Art 77 18 99 %??Temp (24hrs), Av.3 ?C (97.4 ?F), Min:36.1 ?C (97 ?F), Max:36.6 ?C(97.9 ?F)Body mass index is 39.59 kg/m?.?INTAKE/OUTPUTIntake/Output ? 03/30/18 07 - 03/31/18 0659 03/31/18 07 - 04/01/18 0659 700 - 04/02/18 0659 04/02/18 07 - 04/03/18 0659 04/03/18 07 -04/04/18 0659? Intake (ml) 960 5000 333 7251 580? Output (ml) 283 67 125 4 4? Net (ml) 677 2153 691 1011 576?GENERAL: alert, no distress, cooperativeLUNGS: Lungs clear to auscultation. Good diaphragmatic excursion.CARDIAC: Normal S1 and S2; no rubs, murmurs, or gallopsABDOMEN: Abdomen soft, non-tender. BS normal. No masses or organomegaly.EXTREMITIES: B/L LE pitting edema??LAB DATA:?CBC:??Recent Labs? 03/31/1807WBC 2.35* 3.23* 3.85* -- 3.38* -- 3.51*HB 8.3* 8.7* 8.1* 7.7* 7.8* 7.7* 7.3*HCT 26.5* 28.3* 25.9* -- 25.1* -- 23.1*PLT 135* 107* 121* -- 105* -- 75*MCV 88.9 92.5 91.5 -- 92.3 -- 92.0?BMP:??Recent Labs? 03/31/1807GLUC 183* 171* 163* 188* 121*NA 139 136 139 142 141K 3.9 3.9 3.9 3.6 3.7CHLOR 104 103 108* 111* 112*CO2 32 28 28 26 23ANION 7* -- -- -- 10BUN 5* 5* 4* 6* 4*CREAT 0.59* 0.50* 0.52* 0.61* 0.54*??CHEM:??Recent Labs? 03/31/18078ALB -- 2.2* 2.3* 1.8* --CA 8.4* 8.5 8.3* 8.0* 7.4*P -- 3.3 2.9 2.4* --ASSESSMENT AND PLAN:1. Strep pneumococcal pneumonia(LLL) ?with left parapneumonic effusion s/pchest tube placement.- ?Appreciate ID and CT surgery input.- on antibiotics - Unasyn to continue antibiotics till 04/07/18. Will changeto Augmentin 875 mg on d/c.- CT removed yesterday- Pleural Cx negative to date- Cytology negative- pain control- Likely D/C home tomorrow?2. GI bleeding with EGD evidence of 3 antral ulcers -clean based. Noevidence of Lower GI bleeding. Counseled on the need to stop NSAIDs.H.pylori negative on antral biopsy.3. Acute blood loss anemia from #2. Stable H/H. No further interventionplanned. Continue monitoring4. A-fibrillation - Transient - resolved.5. DM - stable6. Peripheral edema - most probably 2ry to his DVT, Will start IV lasixfor 2 days while inpatient, will check kidney function tomorrow.7. Recent PE s/p IVC filter placement?MAINTENANCE:VTE Prophylaxis: Pneumatic Compression DeviceGI PROPHYLAXIS: Pantoprazole 40mg PO dailyNUTRITION: Eating and drinking diet?CONSULTATIONS ON CASE:IDCT surgery?Active Hospital Problems Obesity, Class II, BMI 35-39.9 [E66.9]? Obstructive sleep apnea [G47.33]? Diabetes (HCC) [E11.9]? Nicotine use disorder, F17.2 [F17.200]? Obesity, Class III, BMI >= 40 [E66.01]? Malnutrition of moderate degree (HCC) [E44.0]? Anemia [D64.9]? Atrial fibrillation with RVR (HCC) [I48.91]? Pulmonary embolism (HCC) [I26.99]? GI bleed [K92.2]???SIGNATURE:Drew Palencia MD?This note was generated using AppScale Systemsation systemThis note is not final until staffed by the attending physician andauthenticated by responsible provider.?SIGNATURE: Drew Palencia MD PATIENT NAME: Joel Matson? Normal [facility] PROGRESS HNO ID: [id number] thor: aJnet Hudsonervice: Thoracic SurgeryAuthor Type: PhysicianType: Progress NotesFiled: 04/03/2018 10:30 AMNote Text:Thoracic Surgery2-view CXR reviewedIMPRESSION:1. There has been removal of left-sided chest tube. ?No pneumothoraxvisualized.?2. Linear atelectasis in the left lower lobe with persistent small lefteffusion.- 100% SpO2 on room air- mgmt per primary and pulm- Thoracic surgery will sign off, call with questions/concernsSantos Wen MD04/03/20186:47 AMCxr reviewed and discussed with resident. Patient not seen by me today.CT surg sign off. Normal [facility] Basic Panelon 04-02-2018 Creatinine 0.59 mg/dL Low 0.67-1.17 [facility] Comment on above: Performed By: #### G FR ####[facility]1 [place], [place] [address] Anion gap 7 mmol/L Low 8-16 [facility] Comment on above: Performed By: #### G FR ####[facility]1 [place], [place] [address] Calcium 8.4 mg/dL Low 8.5-10.1 [facility] Comment on above: Performed By: #### G FR ####[facility]1 [place], [place] [address] CO2 32 mmol/L Normal 21-32 [facility] Comment on above: Performed By: #### G FR ####[facility]1 [place], [place] [address] Glucose mass conc 183 mg/dL High 70-99 [facility] Comment on above: Performed By: #### G FR ####[facility] [place], [place] [address] Urea nitrogen 5 mg/dL Low 7-18 [facility] Comment on above: Performed By: #### G FR ####[facility]1 [place], [place] [address] Chloride 104 mmol/L Normal 98-107 [facility] Comment on above: Performed By: #### G FR ####[facility] [place], [place] [address] Potassium molar conc 3.9 mmol/L Normal 3.5-5.1 [facility] Comment on above: Performed By: #### G FR ####[place] [address] Sodium 139 mmol/L Normal 136-145 [facility] Comment on above: Performed By: #### G FR ####[facility]1 [place] [id number] CHEST 1 VIEWon 04-02-2018 CHEST 1 VIEW Performed at [facility] APPROVED BY: ALEX MANRIQUEZ MD EXAM TITLE: PORTABLE AP/PA CHEST X RAY DATE: 04/02/2018 06:58 COMPARISON: CT examination of the chest with contrast as well as x-ray examination dated 04/01/2018. CLINICAL INDICATION/HISTORY: Empyema ENCOUNTER: Not applicable TECHNIQUE: Single portable AP/PA radiograph of the chest RESULT: Lines, tubes, and devices: No significant interval change regarding orientation of left-sided thoracostomy tube with tip overlying the mid [...] or consolidation. Trace left pneumothorax, essentially unchanged. Normal [facility] CHEST 2 VIEWSon 04-02-2018 Protein Performed at [facility] APPROVED BY: LINDA LONG MD EXAMINATION: CHEST RADIOGRAPH (2 VIEW FRONTAL & LATERAL) Clinical History: Pleural effusion MQ: [id number]_5Comparison: 04/02/2018 at 6:58 AM RESULT: Lines, tubes, [...] Normal cardiomediastinal silhouette. Other: No bony abnormalities. IMPRESSION:1. There has been removal of left-sided chest tube. No pneumothorax visualized. 2. Linear atelectasis in the left lower lobe with persistent small left effusion. Normal [facility] Glucose Meteron 04-02-2018 Glucose mass conc 218 mg/dL High 70-99 [facility] Comment on above: Result Comment: RN N OTIFIED Performed By: #### G FR ####[address] [address] Glucose mass conc 242 mg/dL High 70- [facility] Comment on above: Result Comment: RN N OTIFIED Performed By: #### G FR ####[place] [address] Glucose mass conc 207 mg/dL High 70- [facility] Comment on above: Result Comment: INEZ N OTIFIED Performed By: #### G FR ####[place] [address] Glucose mass conc 197 mg/dL High 70- [facility] Comment on above: Result Comment: RN N OTIFIED Performed By: #### G FR ####[place] [address] Hemogram/Diffon 04-02-2018 Abs Immature Grans 0.01 thou/cmm Normal 0.00-0.05 [facility] Comment on above: Performed By: #### G FR ####[place] [address] Abs. Baso 0.01 thou/cmm Normal 0.01-0.08 [facility] Comment on above: Result Comment: Smea r scanned; tech agrees with automated differential Performed By: #### G FR ####[place] [address] Abs. Mckenzie 0.32 thou/cmm Normal 0.30-0.82 [facility] Comment on above: Performed By: #### G FR ####[place] [address] Abs. Neut (ANC) 1.29 thou/cmm Low 1.78-5.38 [facility] Comment on above: Performed By: #### G FR ####[place] [address] [place], [place] [address] Basophils/100 WBC Auto (Bld) 0.4 % Normal [facility] Comment on above: Performed By: #### G FR ####[facility]1 [place], [place] [address] Eosinophils 0.03 thou/cmm Low 0.04-0.54 [facility] Comment on above: Performed By: #### G FR ####[facility]1 [place], [place] [address] Eosinophils/100 leukocytes 1.3 % Normal [facility] Comment on above: Performed By: #### G FR ####[address] [address] Immature Grans 0.40 % Normal [facility] Comment on above: Performed By: #### G FR ####[address] [address] Lymphocytes 0.69 thou/cmm Low 0.84-2.85 [facility] Comment on above: Performed By: #### G FR ####[address] [address] Lymphocytes/100 leukocytes 29.4 % Normal [facility] Comment on above: Performed By: #### G FR ####[address] [address] Monocytes/100 leukocytes 13.6 % Normal [facility] Comment on above: Performed By: #### G FR ####[address] [address] Seg Neutrophil 54.9 % Normal [facility] Comment on above: Performed By: #### G FR ####[address] [address] Erythrocyte distribution width Auto Ratio (RBC) 16.4 % High 11.6-14.4 [facility] Comment on above: Performed By: #### G FR ####[address] [address] Erythrocytes (RBC) 2.98 mil/cmm Low 4.63-6.08 [facility] Comment on above: Performed By: #### G FR ####[facility]1 [place] [address] Hematocrit (HCT) 26.5 % Low 40.1-51.0 [facility] Comment on above: Performed By: #### G FR ####[facility]1 [place] [address] Hemoglobin mass conc (Bld) 8.3 g/dL Low 13.7-17.5 [facility] Comment on above: Performed By: #### G FR ####[facility]1 [place] [address] MCH 27.9 pg Normal 25.7-32.2 [facility] Comment on above: Performed By: #### G FR ####[place] [address] MCHC mass conc (RBC) 31.3 % Low 32.3-36.5 [facility] Comment on above: Performed By: #### G FR ####[place] [address] MCV 88.9 fL Normal 83.2-95.6 [facility] Comment on above: Performed By: #### G FR ####[place] [address] Platelet mean volume (PMV) 9.3 fL Normal 8.7-12.0 [facility] Comment on above: Performed By: #### G FR ####[place] [address] Platelets 135 thou/cmm Low 141-365 [facility] Comment on above: Performed By: #### G FR ####[place] [address] RDW SD 52.3 fl High 36.1-45.8 [facility] Comment on above: Performed By: #### G FR ####[place] [address] WBC (Leukocytes) 2.35 thou/cmm Low 4.23-9.07 [facility] Comment on above: Performed By: #### G FR ####[address] [place], [place] [address] MDRD GFRon 04-02-2018 eGFR (non-black) mL/min/{1.73_m2} Normal >60mL/m in/ 1.73m2 [facility] Comment on above: Result Comment: If t he patient is , multiply the result by 1.210. Performed By: #### G FR ####[facility]1 [place], [place] [address] NURSING PROGon 04-02-2018 NURSING PROG HNO ID: [id number] thor: Og (Rn) JUAN RAMON Ganervice: (none)Author Type: Registered NurseType: Nursing Progress NoteFiled: 04/02/2018 6:39 AMNote Text:Special ops notified of request for assistance with bloodwork. States will put on list for day shift . [facility] NURSING PROG HNO ID: [id number] Author: Og (Rn) INEZ Gan Service: (none) Author Type: Registered Nurse Type: Nursing Progress Note Filed: 04/02/2018 5:47 AM Note Text: Special ops paged for assistance with bloodwork. [facility] PROCEDUREon 04-02-2018 PROCEDURE HNO ID: [id number] thor: Janet Hudsonervice: Thoracic SurgeryAuthor Type: PhysicianType: ProceduresFiled: 04/02/2018 11:33 AMNote Text:Left Chest tube removed at bedsidestay suture tied downOcclusive dressing appliedNo complications2-view CXR @ 14:30[facility] MD Behzad04/02/20189:46 AMAs [address]. [address] [facility] PROGRESSon 04-02-2018 PROGRESS HNO ID: [id number] thor: Fernando McwilliamsService: Hospital MedicineAuthor Type: PhysicianType: Progress NotesFiled: 04/02/2018 1:40 PMNote Text:DEPARTMENT OF HOSPITAL MEDICINEPROGRESS NOTESERVICE DATE: 04/02/2018SERVICE TIME: 10:36 AMHospital Medicine/Primary Attending: Fernando Mcwilliams MDNIGHT AND WEEKEND COVERAGE:After 7pm please page [phone]: Stable, no acute events overnight.No fever, cough, shortnessof breath, abdominal pain, nausea, or vomiting.OBJECTIVE:PHYSICAL EXAM: BP 113/61 Pulse 85 Temp (Src) 97.9 (Temporal Artery) Resp 18 Ht 5' 8 (1.73m) Wt 269 lb 4.8 oz (122.2kg) SpO2 94% BMI40.96 kg/(m2).General - NAD, CalmCV - RRR S1 S2RESP - CTA B/LABD - soft, NT, ND +BSEXT - no edemaMEDICATIONS:Current hospital medications:furosemide 40 mg tab(s) (LASIX) 40 mg ORAL DAILYampicillin-sulbactam 3 g in NaCl 0.9% 100 mL MB+ (UNASYN) 3 g INTRAVENOUSq 6 HoxyCODONE IR 5-10 mg tab(s) (ROXICODONE) 5-10 mg ORAL q 4 H PRNmorphine 4 mg injection 4 mg INTRAVENOUS q [address] 40 mg tab(s) (PROTONIX) 40 mg ORAL BID AC (0600/1600)insulin regular human injection (short acting) (NovoLIN R,HumuLIN R)SUBCUTANEOUS w MEALS AND HSdextrose 40 % 15 g 15 g ORAL PRNglucagon 1 mg injection (GLUCAGEN) 1 mg INTRAMUSCULAR PRNdextrose 50% in water 25 mL syringe 12.5 g INTRAVENOUS PRNprochlorperazine 5 mg injection (COMPAZINE) 5 mg INTRAVENOUS q 6 H PRNDATA:Diagnostic tests reviewed for today's visit:CBC:Recent Labs WBC 2.35*RBC 2.98*HB 8.3*HCT 26.5*PLT 135*MCV 88.9MCH 27.9MPV 9.3RDW 16.4*Coags: No results for input(s): INR, APTT in the last 24 hours.Invalid input(s): PTBMP:Recent Labs NA 139K 3.9CHLOR 104CO2 32BUN 5*CREAT 0.59*GLUC 183*CMP:Recent Labs NA 139K 3.9CHLOR 104CO2 32BUN 5*CREAT 0.59*GLUC 183*CA 8.4*ANION 7*Cardiac Enzymes: No results for input(s): CK, MB, CKMB, TROPT in the last24 hours.Liver Function, Amylase, Lipase: No results for input(s): TPROT, ALB, ALT,AST, ALKPHOS, TBILI, AMYLASE, LIPASE, LACTATE in the last 24 hours.MG/PHOS: No results for input(s): MG, P in the last 24 hours.Renal Panel:Recent Labs 5CREAT 0.59*BUN 5*GLUC 183*CA 8.4*CHLOR 104K 3.9CO2 32NA 139Heme: No results for input(s): RETICP, ABSRETIC, LD, AIDA, FE, TIBC,TRANSFERSAT in the last 24 hours.No results found for: UALBCRAssessment/Plan1. Strep pneumococcal pneumonia(LLL) ?with left parapneumonic effusion s/pchest tube placement.- Appreciate ID and CT surgery input.- on antibiotics - Unasyn to continue antibiotics till 04/07/18. .May changeto Augmentin 875 mg on d/c.- CT removed this AM- Pleural Cx negative to date- Cytology negative- pain control- Likely D/C home in 24 hours?2. GI bleeding with EGD evidence of 3 antral ulcers -clean based. Noevidence of Lower GI bleeding. Counseled on the need to stop NSAIDs.H.pylori negative on antral biopsy.3. Acute blood loss anemia from #2. Stable H/H. No further interventionplanned. Continue monitoring4. A-fibrillation - Transient - resolved.5. DM - stable6. Peripheral edema - likely non systemic and related to long termimmobility. Improved. Will restart lasix for a few days while inpatient.SIGNATURE: Fernando Mcwilliams MD PATIENT NAME: Joel MatsonDATE: April 02, 2018 : 10:36 AM PAGER/CONTACT #: Rui Elkins [facility] PROGRESS HNO ID: [id number] thor: Janet Hudsonervice: Thoracic SurgeryAuthor Type: PhysicianType: Progress NotesFiled: 04/02/2018 12:08 PMNote Text:Thoracic Surgery Progress NoteSERVICE DATE: 04/02/2018SubjectiveSUBJECTIVE:JULIA ON, slept well last nightDenies N/V/CP/SOBDiet: DIET CARBOHYDRATE CONTROLLEDObjectiveOBJECTIVE:Renetta ls:Temp (24hrs), Av.7 ?C (98 ?F), Min:36.3 ?C (97.3 ?F), Max:36.9 ?C(98.4 ?F)BP 128/74 Pulse 80 Temp 36.9 ?C (98.4 ?F) (Temporal Artery) Resp16 Ht 172.7 cm (5' 8 ) Wt 122.2 kg (269 lb 4.8 oz) SpO2 98% BMI 40.95 kg/m?O2 Therapy: Room AirIANDO:Date 04/01/18 07 - 04/02/18 0659 04/02/18 07 - 04/03/18 0659Shift 9540-5906 4363-4608 9591-8810 24 Hour Total 0637-2694 [id number] 24 Hour TotalINTAKE PO 420 420 PO 420 420 Shift Total 420 420OUTPUT Urine 4 3 3 10 Urine Not Saved 4 3 3 10 Chest Tube 90 0 25 115 Chest Tube Output (Chest Tube 03/27/18 1828 Left Lateral Tube #1) 90 025 115 # of BMs Number of BMs 1 x 1 x 2 x Shift Total 94 3 28 125Weight (kg) 122.2 122.2 122.2 122.2 122.2 122.2 122.2 122.2MEDICATIONSCurrent Facility-Administered Medications:iv contrast (radiology procedure) INTRAVENOUS DIRECTED PRNfurosemide 40 mg tab(s) (LASIX) 40 mg ORAL DAILYampicillin-sulbactam 3 g in NaCl 0.9% 100 mL MB+ (UNASYN) 3 g INTRAVENOUSq 6 HoxyCODONE IR 5-10 mg tab(s) (ROXICODONE) 5-10 mg ORAL q 4 H PRNmorphine 4 mg injection 4 mg INTRAVENOUS q [address] mg tab(s) (PROTONIX) 40 mg ORAL BID AC (0600/1600)insulin regular human injection (short acting) (NovoLIN R,HumuLIN R)SUBCUTANEOUS w MEALS AND HSdextrose 40 % 15 g 15 g ORAL PRNOrglucagon 1 mg injection (GLUCAGEN) 1 mg INTRAMUSCULAR PRNOrdextrose 50% in water 25 mL syringe 12.5 g INTRAVENOUS PRNprochlorperazine 5 mg injection (COMPAZINE) 5 mg INTRAVENOUS q 6 H PRNLabs:Recent Labs 726NA 136K 3.9CHLOR 103CO2 28BUN 5*CREAT 0.50*GLUC 171*CA 8.5P 3.3ALB 2.2*WBC 3.23*HB 8.7*HCT 28.3*PLT 107*Exam:GENERAL: No distress, AlertNEURO: AANDOx3, CN II-XII grossly intactHEENT: normocephalic, atraumaticLUNGS: Unlabored breathing O2 Therapy: Room Air, L CT -20 sxn, serous, noleakCARDIAC: Regular rate and rhythm as aboveABDOMEN: Soft, non-tender, non-distendedEXTREMITIES: FLORES, No deformities, No edemaSKIN: Skin color, texture, turgor normal, No rashes or lesionsASSESSMENT AND PLAN:Active Hospital Problems Diagnosis Date Noted- Obstructive sleep apnea 03/26/2018 Chronic- Diabetes ([facility]) 03/26/2018 Chronic- Nicotine use disorder, F17.2 03/25/2018- Obesity, Class III, BMI >= 40 03/25/2018- Malnutrition of moderate degree ([facility]) 03/25/2018- Anemia 03/24/2018- Atrial fibrillation with RVR ([facility]) 03/24/2018- Pulmonary embolism ([facility]) 03/24/2018- GI bleed 03/24/2018 Overview Note: Added automatically from request for surgery [id number] year old male with Left Parapneumonic Effusion s/p CT on 03/27, PE/DVTand DVT s/p EGD with PUD and Colonoscopy?- cont Left CT to -20 sxn --> possible dc today- daily CXR stable- Pleural Cx negative to date- Cytology negative- Unasyn?per ID- Ambulate- IS- pain control?Assessment and plan discussed with attending: Dr. GuzmanATURE: Santos Wen MD PATIENT NAME: Joel HallerDATE: April 02, 2018 : 5:41 AM Pager: [phone] seen. CXR reviewed and d/w resident.P-remove chest tube, F/U cxr then sign off. Normal [facility] CHEST 1 VIEWon 04-01-2018 Protein Performed at [facility] APPROVED BY: Franklin Winn MD EXAM TITLE: CHEST 1 VIEW DATE: 04/01/2018 07:40 INDICATION: Follow-up for left-sided thoracostomy tube COMPARISON: 03/31/2018 FINDINGS: The left-sided thoracostomy tube is stable in position. There is some adjacent opacity suggesting a combination of subsegmental atelectasis and small pleural effusion. No visible pneumothorax. Right lung is relatively clear. Heart is not enlarged. Osseous structures are intact. IMPRESSION: Stable appearance. Normal [facility] CT CHEST WITH CONTRASTon CT CHEST WITH CONTRAST Performed at [facility] APPROVED BY: Franklin Winn MD EXAMINATION: CHEST CT WITH CONTRAST CLINICAL HISTORY: Pleural effusion Technique: Spiral CT acquisition of the chest from the thoracic inlet to the upper abdomen following IV contrast.MQ: CTCWR_5Contrast: 50 mL IV Omnipaque 300CT Dose-Length Product: 461 mGy*cmCT Dose Reduction Employed: 3. mAs or kVp was manually adjusted based on either the patient size or age. Comparison: Chest radiograph from earlier today RESULT: Limitations: None. Lines, tubes, and devices: None. Lung parenchyma and pleura: There is a trace left-sided pneumothorax without tension features. A posterior left-sided thoracostomy tube terminates at about the level of the left hilum. At the left lung base, there is subsegmental atelectasis and there is a small pleural effusion.At the right lung, there is a trace pleural effusion. Right lung is otherwise clear of active infiltrates. There is no endobronchial mass. Thoracic inlet, heart, and mediastinum: No lymphadenopathy in the axillary, mediastinal, or hilar regions. The thoracic aorta and main pulmonary artery are normal in caliber. The cardiac chambers are normal in size. No coronary artery atherosclerotic calcifications [...] and subsegmental atelectasis. Trace right pleural effusion. Normal [employer] Glucose Meteron 04-01-2018 Glucose mass conc 202 mg/dL High 70-99 [facility] Comment on above: Result Comment: RN N OTIFIED Performed By: #### G FR ####[facility] [place], [place] [address] Glucose mass conc 218 mg/dL High 70-99 [facility] Comment on above: Result Comment: RN N OTIFIED Performed By: #### G FR ####[facility] [place], [place] [address] Glucose mass conc 187 mg/dL High 70-99 [facility] Comment on above: Result Comment: RN N OTIFIED Performed By: #### G FR ####[facility]1 [place], [place] [address] Glucose mass conc 203 mg/dL High 70-99 [facility] Comment on above: Result Comment: RN N OTIFIED Performed By: #### G FR ####[address] [address] PROGRESSon 04-01-2018 PROGRESS HNO ID: [id number] thor: Fernando McwilliamsService: [facility] MedicineAuthor Type: PhysicianType: Progress NotesFiled: 04/01/2018 2:30 PMNote Text:[facility] MEDICINEPROGRESS NOTESERVICE DATE: 04/01/2018SERVICE TIME: 12:23 PMHospital Medicine/Primary Attending: Fernando Mcwilliams MDNIGHT AND WEEKEND COVERAGE:After 7pm please page [phone]: Stable, no acute events overnight.OBJECTIVE:PHYSICAL EXAM: BP 105/67 Pulse 82 Temp (Src) 98.2 (Temporal Artery) Resp 14 Ht 5' 8 (1.73m) Wt 269 lb 4.8 oz (122.2kg) SpO2 96% BMI40.96 kg/(m2).General - NAD, CalmCV - RRR S1 S2, No M/R/GRESP - CTA B/L, Chest tube in place and drain with serous fluid in itABD - soft, NT, ND +BSEXT - Pitting edemaMEDICATIONS:Current hospital medications:iv contrast (radiology procedure) INTRAVENOUS DIRECTED PRNfurosemide 40 mg tab(s) (LASIX) 40 mg ORAL DAILYampicillin-sulbactam 3 g in NaCl 0.9% 100 mL MB+ (UNASYN) 3 g INTRAVENOUSq 6 HoxyCODONE IR 5-10 mg tab(s) (ROXICODONE) 5-10 mg ORAL q 4 H PRNmorphine 4 mg injection 4 mg INTRAVENOUS q [address] mg tab(s) (PROTONIX) 40 mg ORAL BID AC (0600/1600)insulin regular human injection (short acting) (NovoLIN R,HumuLIN R)SUBCUTANEOUS w MEALS AND HSdextrose 40 % 15 g 15 g ORAL PRNglucagon 1 mg injection (GLUCAGEN) 1 mg INTRAMUSCULAR PRNdextrose 50% in water 25 mL syringe 12.5 g INTRAVENOUS PRNprochlorperazine 5 mg injection (COMPAZINE) 5 mg INTRAVENOUS q 6 H PRNDATA:Diagnostic tests reviewed for today's visit:CBC: No results for input(s): WBC, RBC, HB, HCT, PLT, MCV, MCH, MPV, RDWin the last 24 hours.Coags: No results for input(s): INR, APTT in the last 24 hours.Invalid input(s): PTBMP: No results for input(s): NA, K, CHLOR, CO2, BUN, CREAT, GLUC in thelast 24 hours.CMP: No results for input(s): NA, K, CHLOR, CO2, BUN, CREAT, GLUC, TPROT,CA, MG, ALBUMIN, TBILI, ALKPHOS, ALT, AST, ANION in the last 24 hours.Cardiac Enzymes: No results for input(s): CK, MB, CKMB, TROPT in the last24 hours.Liver Function, Amylase, Lipase: No results for input(s): TPROT, ALB, ALT,AST, ALKPHOS, TBILI, AMYLASE, LIPASE, LACTATE in the last 24 hours.MG/PHOS: No results for input(s): MG, P in the last 24 hours.Renal Panel: No results for input(s): ALBUMIN, CREAT, BUN, GLUC, CA, P,CHLOR, K, CO2, NA in the last 24 hours.Heme: No results for input(s): RETICP, ABSRETIC, LD, AIDA, FE, TIBC,TRANSFERSAT in the last 24 hours.No results found for: UALBCRAssessment/Plan1. Strep pneumococcal pneumonia(LLL) with left parapneumonic effusion s/pchest tube placement.- Appreciate ID and CT surgery input.- on antibiotics - Unasyn to continue antibiotics till 04/07/18. .May changeto Augmentin 875 mg on d/c.- cont Left CT, daily CXR - follow up CT chest today2. GI bleeding with EGD evidence of 3 antral ulcers -clean based. Noevidence of Lower GI bleeding. Counseled on the need to stop NSAIDs.H.pylori negative on antral biopsy.3. Acute blood loss anemia from #2. Stable H/H. No further interventionplanned. Continue monitoring4. A-fibrillation - Transient - resolved.5. DM - stable6. Peripheral edema - likely non systemic and related to long termimmobility. Improved. Will restart lasix for a few days while inpatient.7. F/up cytology from pleural fluid- still pending.??Prophylaxis: VTE - No. Contraindicated. IVF placed PPI - YesCode Status: fullDisposition: homeSIGNATURE: Fernando Mcwilliams MD PATIENT NAME: Joel HallerDATE: April 01, 2018 : 12:23 PM PAGER/CONTACT #: Rui Elkins [facility] PROGRESS HNO ID: [id number] thor: Janet Hudsonervice: Thoracic SurgeryAuthor Type: PhysicianType: Progress NotesFiled: 04/01/2018 9:21 AMNote Text:Thoracic Surgery Progress NoteSERVICE DATE: 04/01/2018SubjectiveSUBJECTIVE:JULIA ON, left chest soreness from tubeDenies N/V/CP/SOBDiet: DIET CARBOHYDRATE CONTROLLEDObjectiveOBJECTIVE:Renetta ls:Temp (24hrs), Av.7 ?C (98.1 ?F), Min:36.5 ?C (97.7 ?F), Max:36.9 ?C(98.4 ?F)BP 118/75 Pulse 80 Temp 36.5 ?C (97.7 ?F) Resp 16 Ht 172.7 cm(5' 8 ) Wt 122.2 kg (269 lb 4.8 oz) SpO2 98% BMI 40.95 kg/m?O2 Therapy: Continuous Positive Airway PressureIANDO:Date 03/31/18 07 - 04/01/18 0659 04/01/18 07 - 04/02/18 0659Shift 8723-6637 4992-8504 4467-2049 24 Hour Total 4544-7841 [id number] 24 Hour TotalINTAKE PO 480 360 840 PO 480 360 840 IV 100 100 200 400 Ampicillin/Sulbactam (Unasyn) IV 100 100 200 400 Shift Total 580 460 200 1240OUTPUT Urine 2 3 2 7 Urine Not Saved 2 3 2 7 Chest Tube 30 30 60 Chest Tube Output (Chest Tube 03/27/18 1828 Left Lateral Tube #1) 3030 60 # of BMs Number of BMs 2 x 2 x Shift Total 32 3 32 67Weight (kg) 122.2 122.2 122.2 122.2 122.2 122.2 122.2 122.2MEDICATIONSCurrent Facility-Administered Medications:furosemide 40 mg tab(s) (LASIX) 40 mg ORAL DAILYampicillin-sulbactam 3 g in NaCl 0.9% 100 mL MB+ (UNASYN) 3 g INTRAVENOUSq 6 HoxyCODONE IR 5-10 mg tab(s) (ROXICODONE) 5-10 mg ORAL q 4 H PRNmorphine 4 mg injection 4 mg INTRAVENOUS q [address] mg tab(s) (PROTONIX) 40 mg ORAL BID AC (0600/1600)insulin regular human injection (short acting) (NovoLIN R,HumuLIN R)SUBCUTANEOUS w MEALS AND HSdextrose 40 % 15 g 15 g ORAL PRNOrglucagon 1 mg injection (GLUCAGEN) 1 mg INTRAMUSCULAR PRNOrdextrose 50% in water 25 mL syringe 12.5 g INTRAVENOUS PRNprochlorperazine 5 mg injection (COMPAZINE) 5 mg INTRAVENOUS q 6 H PRNLabs:Recent Labs 6 NA 136 139K 3.9 3.9CHLOR 103 108*CO2 28 28BUN 5* 4*CREAT 0.50* 0.52*GLUC 171* 163*CA 8.5 8.3*P 3.3 2.9ALB 2.2* 2.3*WBC 3.23* 3.85*HB 8.7* 8.1*HCT 28.3* 25.9*PLT 107* 121*Exam:GENERAL: No distress, AlertNEURO: AANDOx3, CN II-XII grossly intactHEENT: normocephalic, atraumaticLUNGS: Unlabored breathing O2 Therapy: Continuous Positive AirwayPressure, L CT -40 sxn, serous, no leakCARDIAC: Regular rate and rhythm as aboveABDOMEN: Soft, non-tender, non-distendedEXTREMITIES: FLORES, No deformities, No edemaSKIN: Skin color, texture, turgor normal, No rashes or lesionsASSESSMENT AND PLAN:Active Hospital Problems Diagnosis Date Noted- Obstructive sleep apnea 03/26/2018 Chronic- Diabetes ([facility]) 03/26/2018 Chronic- Nicotine use disorder, F17.2 03/25/2018- Obesity, Class III, BMI >= 40 03/25/2018- Malnutrition of moderate degree ([facility]) 03/25/2018- Anemia 03/24/2018- Atrial fibrillation with RVR ([facility]) 03/24/2018- Pulmonary embolism ([facility]) 03/24/2018- GI bleed 03/24/2018 Overview Note: Added automatically from request for surgery [id number] year old male with Left Parapneumonic Effusion s/p CT on 03/27, PE/DVTand DVT s/p EGD with PUD and Colonoscopy?- cont Left CT to -40 sxn- daily CXR largely unchanged- will get CT chest today- Pleural Cx negative to date- Cytology negative- Unasyn?per ID- Ambulate- IS- pain control?Assessment and plan discussed with attending: Dr. GuzmanATURE: Santos Wen MD PATIENT NAME: Joel MatsonDATE: April 01, 2018 : 6:39 AM Pager: [phone] seen, cxr, and ct reviewed. Chest tube has done fairly decent joband rest should be handled by patient.P-dec suction and possibly remove tomorrow depending on multiple factors. Normal [facility] CASE MANAGEMon 03-31-2018 CASE MANAGEM HNO ID: [id number] thor: Breann (Rn) Lela, RNService: Care ManagementAuthor Type: Registered NurseType: Care Mgt Progress NoteFiled: 03/31/2018 9:25 AMNote Text:CT in place. Remains on IV atbx. Discharge plan remains home with spousewhen medically ready for discharge. Normal [facility] CHEST 1 VIEWon 03-31-2018 Protein Performed at [facility] APPROVED BY: Franklin Winn MD EXAM TITLE: CHEST 1 VIEW DATE: 03/31/2018 06:19 INDICATION: Follow-up for left chest tube COMPARISON: 03/30/2018 FINDINGS: Left thoracostomy tube is stable. Some atelectasis and small pleural effusion are stable at the left base. There is no visible pneumothorax. Right lung is relatively clear. Heart is not enlarged. Osseous structures are intact. IMPRESSION: Stable appearance. Normal [facility] Glucose Meteron 03-31-2018 Glucose mass conc 186 mg/dL High 70-99 [facility] Comment on above: Result Comment: INEZ Durand OTIFIED Performed By: #### G FR ####[address] [address] Glucose mass conc 201 mg/dL High 70-99 [facility] Comment on above: Result Comment: INEZ Durand OTIFIED Performed By: #### G FR ####[address] [address] Glucose mass conc 253 mg/dL High 70-99 [facility] Comment on above: Result Comment: INEZ Durand OTIFIED Performed By: #### H EPAP ####[address] [address] Glucose mass conc 188 mg/dL High 70-99 [facility] Comment on above: Result Comment: INEZ Durand OTIFIED Performed By: #### H EPAP ####[address] [address] Glucose mass conc 259 mg/dL High 70-99 [facility] Comment on above: Result Comment: INEZ Durand OTIFIED Performed By: #### H EPAP ####[place] [address] Hemogram/Diffon 03-31-2018 Abs Immature Grans 0.02 thou/cmm Normal 0.00-0.05 [facility] Comment on above: Performed By: #### H EPAP ####[place] [address] Abs. Baso 0.01 thou/cmm Normal 0.01-0.08 [facility] Comment on above: Result Comment: Smzulay r scanned; tech agrees with automated differential Performed By: #### H EPAP ####[place] [address] Abs. Mckenzie 0.38 thou/cmm Normal 0.30-0.82 [facility] Comment on above: Performed By: #### H EPAP ####[place] [address] Abs. Neut (ANC) 1.86 thou/cmm Normal 1.78-5.38 [facility] Comment on above: Performed By: #### H EPAP ####[place] [address] Basophils/100 WBC Auto (Bld) 0.3 % Normal [facility] Comment on above: Performed By: #### H EPAP ####[place] [address] Eosinophils 0.09 thou/cmm Normal 0.04-0.54 [facility] Comment on above: Performed By: #### H EPAP ####[place] [address] Eosinophils/100 leukocytes 2.8 % Normal [facility] Comment on above: Performed By: #### H EPAP ####[place] [address] Erythrocyte distribution width Auto Ratio (RBC) 17.1 % High 11.6-14.4 [facility] Comment on above: Performed By: #### H EPAP ####[place] [address] Erythrocytes (RBC) 3.06 mil/cmm Low 4.63-6.08 [facility] Comment on above: Performed By: #### H EPAP ####[place] [address] Hematocrit (HCT) 28.3 % Low 40.1-51.0 [facility] Comment on above: Performed By: #### H EPAP ####[place] [address] Hemoglobin mass conc (Bld) 8.7 g/dL Low 13.7-17.5 [facility] Comment on above: Performed By: #### H EPAP ####[place] [address] Immature Grans 0.60 % Normal [facility] Comment on above: Performed By: #### H EPAP ####[place] [address] Lymphocytes 0.87 thou/cmm Normal 0.84-2.85 [facility] Comment on above: Performed By: #### H EPAP ####[place] [address] Lymphocytes/100 leukocytes 26.9 % Normal [facility] Comment on above: Performed By: #### H EPAP ####[place] [address] MCH 28.4 pg Normal 25.7-32.2 [facility] Comment on above: Performed By: #### H EPAP ####[place] [address] MCHC mass conc (RBC) 30.7 % Low 32.3-36.5 [facility] Comment on above: Performed By: #### H EPAP ####[place] [address] MCV 92.5 fL Normal 83.2-95.6 [facility] Comment on above: Performed By: #### H EPAP ####[place] [address] Monocytes/100 leukocytes 11.8 % Normal [facility] Comment on above: Performed By: #### H EPAP ####[place] [address] Platelet mean volume (PMV) 10.7 fL Normal 8.7-12.0 [facility] Comment on above: Performed By: #### H EPAP ####[place] [address] Platelets 107 thou/cmm Low 141-365 [facility] Comment on above: Performed By: #### H EPAP ####[facility] [place], [place] [address] RDW SD 56.1 fl High 36.1-45.8 [facility] Comment on above: Performed By: #### H EPAP ####[facility] [place], [place] [address] Seg Neutrophil 57.6 % Normal [facility] Comment on above: Performed By: #### H EPAP ####[facility] [place], [place] [address] WBC (Leukocytes) 3.23 thou/cmm Low 4.23-9.07 [facility] Comment on above: Performed By: #### H EPAP ####[address] [address] MDRD GFRon 03-31-2018 eGFR (non-black) mL/min/{1.73_m2} Normal >60mL/m in/ 1.73m2 [facility] Comment on above: Result Comment: If t he patient is , multiply the result by 1.210. Performed By: #### H EPAP ####[address] [address] PROGRESSon 03-31-2018 PROGRESS HNO ID: [id number] thor: John Hernandez IIIService: Infectious DiseaseAuthor Type: PhysicianType: Progress NotesFiled: 03/31/2018 12:20 PMNote Text:INTERNAL MEDICINE CONSULT PROGRESS NOTESERVICE DATE: 03/31/2018SERVICE TIME: 11:33 AMCONSULTING SERVICE: Internal MedicineSubjectiveINTERVAL HISTORY OF PRESENT ILLNESS:Patient doing better. Slight pain at the chest tube insertion side. HadTPA yesterday.Current Facility-Administered Medications:furosemide 40 mg tab(s) (LASIX) 40 mg ORAL DAILYampicillin-sulbactam 3 g in NaCl 0.9% 100 mL MB+ (UNASYN) 3 g INTRAVENOUSq 6 HoxyCODONE IR 5-10 mg tab(s) (ROXICODONE) 5-10 mg ORAL q 4 H PRNmorphine 4 mg injection 4 mg INTRAVENOUS q [address] mg tab(s) (PROTONIX) 40 mg ORAL BID AC (0600/1600)insulin regular human injection (short acting) (NovoLIN R,HumuLIN R)SUBCUTANEOUS w MEALS AND HSdextrose 40 % 15 g 15 g ORAL PRNOrglucagon 1 mg injection (GLUCAGEN) 1 mg INTRAMUSCULAR PRNOrdextrose 50% in water 25 mL syringe 12.5 g INTRAVENOUS PRNprochlorperazine 5 mg injection (COMPAZINE) 5 mg INTRAVENOUS q 6 H PRNObjectivePHYSICAL EXAM:Patient Vitals for the past 24 hrs: BP Temp Temp src Pulse Resp SpO2 Cccrgl86/25/18 0700 124/64 36.7 ?C (98.1 ?F) Oral 79 18 93 % -03/31/18 0600 - - - - - - 122.2 kg (269 lb 4.8 oz)03/31/18 0451 117/64 36.4 ?C (97.5 ?F) Oral 81 18 93 % -03/30/18 1900 112/55 36.1 ?C (97 ?F) Temporal Art 93 18 96 % -03/30/18 1500 122/60 36 ?C (96.8 ?F) Temporal Art 78 18 98 % -Body mass index is 40.95 kg/m?.GENERAL: Alert, no distress, cooperativeSKIN: Skin color, texture, turgor normal. No rashes or lesions.OROPHARYNX: Lips, mucosa, and tongue are normal.Teeth and gums, normal.Oropharynx normal.NECK: No jugulovenous distention, No carotid bruits, Carotid pulse normalcontour, SuppleLUNGS: Lungs clear to auscultation. Good diaphragmatic excursion. Chesttube in place.CARDIAC: Normal S1 and S2; no rubs, murmurs, or gallopsABDOMEN: Abdomen soft, non-tender, BS normal, No masses or organomegalyEXTREMITIES: Extremities normal, no deformities, edema, clubbing or skindiscoloration. Good capillary refill., No ulcersNEURO: Alert, oriented X 3, Gait normal. Non-focal. Reflexes normal andsymmetric. Sensation grossly intact., Cranial nerves II-XII intactPULSES: 2+ radial, 2+ carotidDATA:Diagnostic tests reviewed for today's visiComponent Latest Ref Rng AND Units 03/29/2018 03/30/2018 03/31/2018WBC 4.23 - 9.07 thou/cmm 3.38 (L) 3.85 (L) 3.23 (L)RBC 4.63 - 6.08 mil/cmm 2.72 (L) 2.83 (L) 3.06 (L)HGB 13.7 - 17.5 g/dL 7.8 (L) 8.1 (L) 8.7 (L)Hematocrit 40.1 - 51.0 % 25.1 (L) 25.9 (L) 28.3 (L)MCV 83.2 - 95.6 fl 92.3 91.5 92.5MCH 25.7 - 32.2 pg 28.7 28.6 28.4MCHC 32.3 - 36.5 % 31.1 (L) 31.3 (L) 30.7 (L)RDW 11.6 - 14.4 % 19.9 (H) 18.2 (H) 17.1 (H)RDW-SD 36.1 - 45.8 fl 63.4 (H) 59.1 (H) 56.1 (H)Platelet Count 141 - 365 thou/cmm 105 (L) 121 (L) 107 (L)MPV 8.7 - 12.0 fl 9.4 9.6 10.7Seg Neutrophil % 53.8 54.3 57.6Immature Grans % 0.90 0.50 0.60Lymphocyte % 29.9 31.7 26.9Monocyte % 11.8 10.1 11.8Eosinophil % 3.3 2.9 2.8Basophil % 0.3 0.5 0.3Abs. Neut(Anc) 1.78 - 5.38 thou/cmm 1.82 2.09 1.86Immature Grans # 0.00 - 0.05 thou/cmm 0.03 0.02 0.02Abs. Lymph 0.84 - 2.85 thou/cmm 1.01 1.22 0.87Abs. Mckenzie 0.30 - 0.82 thou/cmm 0.40 0.39 0.38Abs. Eosin 0.04 - 0.54 thou/cmm 0.11 0.11 0.09Abs. Baso 0.01 - 0.08 thou/cmm 0.01 0.02 0.01Sodium 136 - 145 mEq/L 142 139 136Potassium 3.5 - 5.1 mEq/L 3.6 3.9 3.9Chloride 98 - 107 mEq/L 111 (H) 108 (H) 103CO2 21 - 32 mEq/L 26 28 28Glucose 70 - 99 mg/dL 188 (H) 163 (H) 171 (H)BUN 7 - 18 mg/dL 6 (L) 4 (L) 5 (L)Creatinine 0.67 - 1.17 mg/dL 0.61 (L) 0.52 (L) 0.50 (L)Calcium 8.5 - 10.1 mg/dL 8.0 (L) 8.3 (L) 8.5Albumin 3.4 - 5.0 g/dL 1.8 (L) 2.3 (L) 2.2 (L)Phosphorus 2.5 - 4.9 mg/dL 2.4 (L) 2.9 3.3eGFR >60mL/min/1.73m2 >60Component Latest Ref Rng AND Units 03/27/2018 03/27/2018 6:30 PM 6:30 PMSpecimen Type Pleural PleuralAppearance BloodyBody Fluid Color AmberRBC, Body Fluid 0 /cmm 18,400Nucleated Cells, Body Fluid 0 /cmm 167Segs, Body Fluid % 19Lymphs, Body Fluid % 53Monos, Body Fluid % 16Others, Body Fluid % 12Body Fluid Interp See belowInterp By See belowAmylase, Body Fluid U/L 21Glucose, Body Fluid mg/dL 133LD,Body Fluid U/L 217pH, Body Fluid 7.680Protein, Body Fluid g/dl 1.7CXR: showing improvement.Impression/Recommenda tionsActive Problems:?1. Pneumococcal pneumonia in setting of loculated left pleural effusion-fluid seems to be hemothorax rather than empyema so shorter course oftherapy (if was empyema then would do 4-6 weeks)-Continue unasyn for now with transition to augmentin 875 BID at dischargeor if current IV fails- stop date=04/07-f/u cytology of pleural fluid- Had TPA injected in the chest tube yesterday.??2. Severe anemia, attributed to GI bleeding.- GI signed off. Will do capsule endoscopy if bleeding recurs.?3. History of testicular cancer, treated with resection and radiationtherapy. ??4. Diabetes mellitus.?5. Atrial fibrillation.-off amio??SIGNATURE: Shruthi Carmichael MD PATIENT NAME: Joel MatsonDATE: March 31, 2018 : 11:33 AM PAGER/CONTACT #: [phone] saw and evaluated the patient. Discussed with the resident and agreewith resident's findings and plan as documented in the resident's notewith above addition in bold.Continue Unasyn for pneumonia- change to oral augmentin 875 BID atdischarge or if IV fails- stop =04/07Will sign off, please call with further questions.SIGNATURE: John Hernandez III, MD PATIENT NAME: Joel MatsonDATE: March 31, 2018 : 12:20 PM PAGER/CONTACT #: [phone] [facility] PROGRESS HNO ID: [id number] thor: Delgado ClementsSerargenise: Hospital MedicineAuthor Type: PhysicianType: Progress NotesFiled: 03/31/2018 10:44 AMNote Text: Hospital Medicine Progress NotePatient Name: Joel BrunsonRN: [id number] Date: 03/24/2018Reason For Admission: PneumoniaIMPRESSION AND PLAN:Active Hospital Problems Diagnosis- Obstructive sleep apnea- Diabetes (HCC)- Nicotine use disorder, F17.2- Obesity, Class III, BMI >= 40- Malnutrition of moderate degree (HCC)- Anemia- Atrial fibrillation with RVR ([facility])- Pulmonary embolism (HCC)- GI bleed Added automatically from request for surgery [id number]. Strep pneumococcal pneumonia(LLL) with left parapneumonic effusion s/pchest tube placement. Pt on antibiotics - Unasyn. Appreciate ID input. Tocontinue antibiotics till 04/07/18. May change to Augmentin 875 mg on d/c.2. GI bleeding with EGD evidence of 3 antral ulcers -clean based. Noevidence of Lower GI bleeding. Counseled on the need to stop NSAIDs.H.pylori negative on antral biopsy.3. Acute blood loss anemia from #2. Stable H/H. No further interventionplanned. Continue monitoring4. A-fibrillation - Transient - resolved.5. DM - stable6. Peripheral edema - likely non systemic and related to long termimmobility. Improved. Will restart lasix for a few days while inpatient.7. F/up cytology from pleural fluid- still pending.Patient ChecklistProphylaxis: VTE - No. Contraindicated. IVF placed PPI - YesCode Status: fullDisposition: Kulwant Clements MD ====Interval History:NO issues overnightPain better controlledTemp Av.3 ?C (97.3 ?F) Min: 36 ?C (96.8 ?F) Max: 36.7 ?C (98.1 ?F)Pulse Av.8 Min: 78 Max: 93No Data RecordedCuff BP Min: 112/55 Max: 128/60Pain Score: 4/10MEDICATIONS:empagliflozin (JARDIANCE) 25 mg tablet Take 25 mg by mouth once daily.insulin degludec-liraglutide (XULTOPHY) 100 unit-3.6 mg/mL Inject 50 Unitssubcutaneously once daily. Do not mix with other insulins.testosterone (ANDROGEL) 20.25 mg/1.25 gram (1.62 %) glpm Apply 2 pumps asdirected once daily.metFORMIN (GLUCOPHAGE) 1,000 mg tablet Take 1,000 mg by mouth twice dailywith meals.linagliptin (TRADJENTA) 5 mg tab Take 1 tablet by mouth once daily.rosuvastatin (CRESTOR) 40 mg tablet Take 40 mg by mouth daily at bedtime.losartan (COZAAR) 100 mg tablet Take 100 mg by mouth once daily.diclofenac, EC, (VOLTAREN) 50 mg EC tablet Take 50 mg by mouth twicedaily. With foodbaclofen (LIORESAL) 10 mg tablet Take 10 mg by mouth daily at bedtime.gabapentin (NEURONTIN) 400 mg capsule Take 400 mg by mouth three timesdaily.escitalopram oxalate (LEXAPRO) 10 mg tablet Take 10 mg by mouth oncedaily.albuterol HFA (VENTOLIN HFA) 90 mcg/actuation inhaler Inhale 2 Puffs asinstructed every 4 hours as needed for Wheezing/Shortness of Breath.Current hospital medications:furosemide 40 mg tab(s) (LASIX) 40 mg ORAL DAILYampicillin-sulbactam 3 g in NaCl 0.9% 100 mL MB+ (UNASYN) 3 g INTRAVENOUSq 6 HoxyCODONE IR 5-10 mg tab(s) (ROXICODONE) 5-10 mg ORAL q 4 H PRNmorphine 4 mg injection 4 mg INTRAVENOUS q [address] mg tab(s) (PROTONIX) 40 mg ORAL BID AC (0600/1600)insulin regular human injection (short acting) (NovoLIN R,HumuLIN R)SUBCUTANEOUS w MEALS AND HSdextrose 40 % 15 g 15 g ORAL PRNglucagon 1 mg injection (GLUCAGEN) 1 mg INTRAMUSCULAR PRNdextrose 50% in water 25 mL syringe 12.5 g INTRAVENOUS PRNprochlorperazine 5 mg injection (COMPAZINE) 5 mg INTRAVENOUS q 6 H PRNPHYSICAL EXAM:BP 124/64 Pulse 79 Temp 36.7 ?C (98.1 ?F) (Oral) Resp 18 Ht172.7 cm (5' 8 ) Wt 122.2 kg (269 lb 4.8 oz) SpO2 93% BMI 40.95kg/m?PHYSICAL EXAMINATION:General appearance: Middle aged man, alert, in no acute distress.Skin: Skin color, texture, turgor normal, no suspicious rashes or lesionsLungs: Lungs clear to auscultation. No wheezing, rhonchi, rales, nonlabored. Chest tube drain with serous fluid in it.Heart: RRR, normal s1s2, no murmursAbdomen: Abdomen soft, non-tender. Bowel sounds normal. No masses,Extremities: 3+ pitting pedal edema to the knees improving. Improvingedema if the left UE as wellLab data:CBC:Recent Labs 03/30/1804WBC 3.23* 3.85* -- 3.38* -- 3.51* -- 4.35 -- 6.14 -- 9.23* --8.91HB 8.7* 8.1* 7.7* 7.8* 7.7* 7.3* 7.1* 7.5* < > 7.5* < > 7.2* < > 4.7*HCT 28.3* 25.9* -- 25.1* -- 23.1* -- 23.4* -- 23.0* -- 21.3* -- 15.3*PLT 107* 121* -- 105* -- 75* -- 101* -- 107* -- 116* -- 146MCV 92.5 91.5 -- 92.3 -- 92.0 -- 92.1 -- 90.2 -- 86.9 -- 94.4< > = values in this interval not displayed.COAG:Recent Labs 03/24/1816APTT -- 19.1*INR 1.00 --BMP:Recent Labs 03/30/1804GLUC 171* 163* 188* 121* 162* 189* 207* 310*NA 136 139 142 141 139 139 139 137K 3.9 3.9 3.6 3.7 3.6 3.2* 3.5 3.8CHLOR 103 108* 111* 112* 112* 108* 108* 105CO2 28 28 26 23 23 27 26 27ANION -- -- -- 10 8 7* 9 9BUN 5* 4* 6* 4* 7 13 18 15CREAT 0.50* 0.52* 0.61* 0.54* 0.43* 0.53* 0.53* 0.52*CHEM:Recent Labs 6 425 245 318 150 200 210 400 345ALB 2.2* 2.3* 1.8* -- -- -- -- 1.7* --TPROT -- -- -- -- -- -- -- 4.8* --CA 8.5 8.3* 8.0* 7.4* 7.3* 7.0* 7.1* -- 7.3*HEPATIC:Recent Labs [id number] 66ALT 18AST 19TBILI 1.7*URINALYSIS:No results for input(s): PH, SPGR, UGLUC, UBILI, UKET, UHB,UPROT, UROBIL, UWBC, SSA in the last 168 hours.Invalid input(s): NITRCARDIAC: No results for input(s): CKTEST, CKMB, CKMBP, TROPT, PBNP in thelast 168 hours.Delgado Clements MD10:[address] [facility] PROGRESS HNO ID: [id number] thor: Janet Hudsonervice: Thoracic SurgeryAuthor Type: PhysicianType: Progress NotesFiled: 03/31/2018 10:53 AMNote Text:VASCULAR SURGERY PROGRESS NOTESERVICE DATE: 03/31/2018SubjectiveSUBJECTIVE:Rou nd 2 of tPA Yesterday.Denies N/V/CP/SOBDiet: DIET CARBOHYDRATE CONTROLLEDObjectiveOBJECTIVE:Renetta ls:Temp (24hrs), Av.3 ?C (97.3 ?F), Min:36 ?C (96.8 ?F), Max:36.6 ?C(97.9 ?F)BP 117/64 Pulse 81 Temp 36.4 ?C (97.5 ?F) (Oral) Resp 18 Ht172.7 cm (5' 8 ) Wt 122.2 kg (269 lb 4.8 oz) SpO2 93% BMI 40.95kg/m?O2 Therapy: Room AirIANDO:Date 03/30/18 07 - 03/31/18 0659 03/31/18699 - 04/01/18 0659Shift 7871-2065 1801-5040 6357-7157 24 Hour Total 4749-3551 9101-12279650-9426 24 Hour TotalINTAKE PO 180 480 660 PO 180 480 660 IV 100 100 100 300 Ampicillin/Sulbactam (Unasyn) IV 100 100 100 300 Shift Total 280 580 100 960OUTPUT Urine 1 2 3 Urine Not Saved 1 2 3 Chest Tube 95 160 25 280 Chest Tube Output (Chest Tube 03/27/18 1828 Left Lateral Tube #1) 76879 25 280 Shift Total 95 161 27 283Weight (kg) 121.1 121.1 122.2 122.2 122.2 122.2 122.2 122.2MEDICATIONSCurrent Facility-Administered Medications:ampicillin-sulbactam 3 g in NaCl 0.9% 100 mL MB+ (UNASYN) 3 g INTRAVENOUSq 6 HoxyCODONE IR 5-10 mg tab(s) (ROXICODONE) 5-10 mg ORAL q 4 H PRNmorphine 4 mg injection 4 mg INTRAVENOUS q [address] mg tab(s) (PROTONIX) 40 mg ORAL BID AC (0600/1600)insulin regular human injection (short acting) (NovoLIN R,HumuLIN R)SUBCUTANEOUS w MEALS AND HSdextrose 40 % 15 g 15 g ORAL PRNOrglucagon 1 mg injection (GLUCAGEN) 1 mg INTRAMUSCULAR PRNOrdextrose 50% in water 25 mL syringe 12.5 g INTRAVENOUS PRNprochlorperazine 5 mg injection (COMPAZINE) 5 mg INTRAVENOUS q 6 H PRNLabs:Recent Labs 03/29/1814NA 139 -- 142K 3.9 -- 3.6CHLOR 108* -- 111*CO2 28 -- 26BUN 4* -- 6*CREAT 0.52* -- 0.61*GLUC 163* -- 188*CA 8.3* -- 8.0*P 2.9 -- 2.4*ALB 2.3* -- 1.8*WBC 3.85* -- 3.38*HB 8.1* 7.7* 7.8*HCT 25.9* -- 25.1*PLT 121* -- 105*Exam:GENERAL: No distress, AlertLUNGS: Unlabored breathing O2 Therapy: Room Air. CT in place -20 sxn,serous, no leakCARDIAC: Regular rate and rhythm as aboveABDOMEN: Soft, non-tender, non-distendedEXTREMITIES: FLORES, No deformities, No edemaASSESSMENT AND PLAN:Active Hospital Problems Diagnosis Date Noted- Obstructive sleep apnea 03/26/2018 Chronic- Diabetes ([facility]) 03/26/2018 Chronic- Nicotine use disorder, F17.2 03/25/2018- Obesity, Class III, BMI >= 40 03/25/2018- Malnutrition of moderate degree ([facility]) 03/25/2018- Anemia 03/24/2018- Atrial fibrillation with RVR ([facility]) 03/24/2018- Pulmonary embolism ([facility]) 03/24/2018- GI bleed 03/24/2018 Overview Note: Added automatically from request for surgery [id number] year old male with Left Parapneumonic Effusion s/p CT on 03/27, PE/DVTand DVT s/p EGD with PUD and Colonoscopy- cont Left CT to -20 sxn- daily CXR slightly improved today. May need repeat CT to evaluatecollections- Pleural Cx negative x3d- Cytology pending- Unasyn per ID- Ambulate- IS- pain control?Assessment and plan discussed with attending: Dr. GuzmanATURE: Jose Woods MD PATIENT NAME: Joel HiserDATE: March 31, 2018 : 6:55 AM Pager: [phone]: [phone] Surg AttendingPatient sleepin--wakes easilyCXR perhaps some betterNot much response to tpa yesterdayP-as d/w resident continue chest tube on suction and consider inc suction. Normal [facility] Renal Panelon 03-31-2018 Creatinine 0.50 mg/dL Low 0.67-1.17 [facility] Comment on above: Performed By: #### H EPAP ####[facility] [place], [place] [address] Phosphate 3.3 mg/dL Normal 2.5-4.9 [facility] Comment on above: Performed By: #### H EPAP ####[facility] [place], [place] [address] Albumin 2.2 g/dL Low 3.4-5.0 [facility] Comment on above: Performed By: #### H EPAP ####[address] [address] CO2 28 mmol/L Normal 21-32 [facility] Comment on above: Performed By: #### H EPAP ####[address] [address] Glucose mass conc 171 mg/dL High 70-99 [facility] Comment on above: Performed By: #### H EPAP ####[address] [address] Urea nitrogen 5 mg/dL Low 7-18 [facility] Comment on above: Performed By: #### H EPAP ####[address] [address] Calcium 8.5 mg/dL Normal 8.5-10.1 [facility] Comment on above: Performed By: #### H EPAP ####[address] [address] Chloride 103 mmol/L Normal 98-107 [facility] Comment on above: Performed By: #### H EPAP ####[address] [address] Potassium molar conc 3.9 mmol/L Normal 3.5-5.1 [facility] Comment on above: Performed By: #### H EPAP ####[address] [address] Sodium 136 mmol/L Normal 136-145 [facility] Comment on above: Performed By: #### H EPAP ####[address] [place] [address] THERAPY NTon 03-31-2018 THERAPY NT HNO ID: [id number] thor: Holli (Pt) ToneyService: Physical TherapyAuthor Type: Physical TherapistType: Therapy (PT/OT/Speech/Resp)Filed: 03/31/2018 12:05 PMNote Text:Physical Therapy TreatmentSERVICE DATE: 03/31/2018SERVICE TIME: 1130 to 1140ROOM: [id number] Discharge Disposition: HomeAnticipated Discharge Needs: Physical Assist at HomePhysical Assist at Home for: Shopping;TransportationPT Recommendations to Nursing: Ambulate without device;To bathroom;Inhalls;OOB for Meals;With assist of 1 personPT 6 Clicks Score: 21Precaution/Activity Restriction Comments: L chest tubeIsolation Type: NoneASSESSMENT :Patient presents already sitting up in his chair. He states he is feelingbetter today and is eager to walk. The patient is demonstrating improvedendurance and strength with all mobility and transfers and gait. He willbe safe for home at discharge.Patient Disposition at Start of Session: OOB in ChairPatient Disposition at End of Session: OOB in ChairTolerated Full SessionPhysical Therapy Problem List: Education Deficit;Functional MobilityImpairmentPatient /Caregiver Goals: Go HomeGoals for Plan of Care:Rolling with: IndependentTransfer supine to/from sit with: IndependentTransfer sit to/from stand with: IndependentAmbulate with: IndependentDistance: 50Ambulate up and down steps with: IndependentNumber of steps: 10Device: RailProgress Toward Goals: Progressing as expectedRehab Potential: ExcellentPLAN:Treatment Frequency (times per week): 5 (2-5) Current admissionTreatment Interventions: Education;Functional Mobility TrainingPlan of Care developed with: PatientTREATMENT INTERVENTIONS:Therapy Diagnosis: General symptoms and signs-otherInterventions Provided: Therapeutic Exercise (49621)Therapeutic Exercise (37828) Treatment Minutes: 101 unitSkilled Intervention(s): Education in the importance of getting up andwalking with staff and family assistance at least 3 times per day andsitting up in the chair for all meals. Encouraged to walk further todaythan he did on previous days.Total Timed Code Treatment Minutes: 10Total Treatment Time (minutes): 10SUBJECTIVE:Current Hospital Course: Chart reviewed and no significant medical updatesrelevant to therapy were notedReason for Physical Therapy Consult : EvalRelevant Past Medical History: DM, pnuemonia, low HgbPatient Report: Only having pain when the chest tube site is touched.Home EnvironmentPatient Lives With: Significant Other ( and son )Assistance Available: 24 Hour (family works opposite shifts)Number Of Stairs To Bed/Bath: flightStairs to Bed/Bath with: Unilateral RailPrior Functional Level: Within Functional Limits (He was able to work anddo yard work)OBJECTIVE:CURRENT FUNCTIONAL STATUS:Current Functional Mobility Assist Level Additional InformationRollingSupine to SitSit to SupineScootingSit to Stand SupervisionStand to Sit SupervisionBed to ChairToilet/CommodeGait Supervision Gait Device: Other: See Comment (occassionally using handrail) Gait Distance (feet): 200 x 2StairsCurb StepCar TransferGeneral Gait Deviations: Viviane decreasedPlease see discipline specific clinical documentation flowsheet forcomplete details for this therapy evaluation/treatment.SIGNATURE: Holli Ziegler PT PATIENT NAME: Joel MatsonDATE: March 31, 2018 : 12:00 PM PAGER/CONTACT #: [phone] Normal [facility] CHEST 1 VIEWon 03-30-2018 CHEST 1 VIEW Performed at [facility] APPROVED BY: Jass Garza MD EXAMINATION: CHEST RADIOGRAPH (PORTABLE SINGLE VIEW AP) Exam Date/Time: 03/30/2018 6:49 AMClinical History: Empyema, left chest tube.M: XCP_3Comparison: 1 day prior RESULT: See impression. IMPRESSION: [...] stable. Other: Visualized osseous structures are unchanged. Normal [facility] [employer] Glucose Meteron 03-30-2018 Glucose mass conc 217 mg/dL High 70-99 [facility] Comment on above: Performed By: #### H EPAP ####[address] [address] Glucose mass conc 190 mg/dL High 70-99 [facility] Comment on above: Result Comment: INEZ N OTIFIED Performed By: #### H EPAP ####[address] [address] Glucose mass conc 168 mg/dL High 70-99 [facility] Comment on above: Result Comment: INEZ N OTIFIED Performed By: #### L DH ####[address] [address] Hemogram/Diffon 03-30-2018 Abs Immature Grans 0.02 thou/cmm Normal 0.00-0.05 [facility] Comment on above: Performed By: #### L DH ####[address] [address] Abs. Baso 0.02 thou/cmm Normal 0.01-0.08 [facility] Comment on above: Performed By: #### L DH ####[address] [address] Abs. Mckenzie 0.39 thou/cmm Normal 0.30-0.82 [facility] Comment on above: Performed By: #### L DH ####[address] [address] Abs. Neut (ANC) 2.09 thou/cmm Normal 1.78-5.38 [facility] Comment on above: Performed By: #### L DH ####[address] [address] Basophils/100 WBC Auto (Bld) 0.5 % Normal [facility] Comment on above: Performed By: #### L DH ####[address] [address] Eosinophils 0.11 thou/cmm Normal 0.04-0.54 [facility] Comment on above: Performed By: #### L DH ####[address] [address] Eosinophils/100 leukocytes 2.9 % Normal [facility] Comment on above: Performed By: #### L DH ####[facility] [place] [address] Erythrocyte distribution width Auto Ratio (RBC) 18.2 % High 11.6-14.4 [facility] Comment on above: Performed By: #### L DH ####[place] [address] Erythrocytes (RBC) 2.83 mil/cmm Low 4.63-6.08 [facility] Comment on above: Performed By: #### L DH ####[place] [address] Hematocrit (HCT) 25.9 % Low 40.1-51.0 [facility] Comment on above: Performed By: #### L DH ####[place] [address] Hemoglobin mass conc (Bld) 8.1 g/dL Low 13.7-17.5 [facility] Comment on above: Performed By: #### L DH ####[place] [address] Immature Grans 0.50 % Normal [facility] Comment on above: Performed By: #### L DH ####[place] [address] Lymphocytes 1.22 thou/cmm Normal 0.84-2.85 [facility] Comment on above: Performed By: #### L DH ####[place] [address] Lymphocytes/100 leukocytes 31.7 % Normal [facility] Comment on above: Performed By: #### L DH ####[place] [address] MCH 28.6 pg Normal 25.7-32.2 [facility] Comment on above: Performed By: #### L DH ####[place] [address] MCHC mass conc (RBC) 31.3 % Low 32.3-36.5 [facility] Comment on above: Performed By: #### L DH ####[facility] [place] [address] MCV 91.5 fL Normal 83.2-95.6 [facility] Comment on above: Performed By: #### L DH ####[facility] [place] [address] Monocytes/100 leukocytes 10.1 % Normal [facility] Comment on above: Performed By: #### L DH ####[place] [address] Platelet mean volume (PMV) 9.6 fL Normal 8.7-12.0 [facility] Comment on above: Performed By: #### L DH ####[place] [address] Platelets 121 thou/cmm Low 141-365 [facility] Comment on above: Performed By: #### L DH ####[place] [address] RDW SD 59.1 fl High 36.1-45.8 [facility] Comment on above: Performed By: #### L DH ####[place] [address] Seg Neutrophil 54.3 % Normal [facility] Comment on above: Performed By: #### L DH ####[place] [address] WBC (Leukocytes) 3.85 thou/cmm Low 4.23-9.07 [facility] Comment on above: Performed By: #### L DH ####[place] [address] Histoplasma Agon 03-30-2018 Histoplasma Ag SEE BELOW Normal [facility] Comment on above: Result Comment: Hist oplasma Ag Ur None detected. ND ng/mL(NOTE)Reference interval: None DetectedResults reported as ng/mL in 0.4 - 19.0 ng/mL range.Results above the limit of detection but below 0.4 ng/mL are reportedas 'Positive, Below the Limit of Quantification'.Results above 19.0 ng/mL are reported as 'Positive, Above the Limitof Quantification'.This test was developed and its performance characteristicsdetermined by [employer]. It has not been cleared orapproved by the FDA; however, FDA clearance or approval is notcurrently required for clinical use. The results are not intended akshat used as the sole means for clinical diagnosis or patientmanagement decisions.Test performed by [facility] [employer], [address] [place] [address] [place] [id number] Laboratory: Performed By: #### H EPAP ####[address] [address] MDRD GFRon 03-30-2018 eGFR (non-black) mL/min/{1.73_m2} Normal >60mL/m in/ 1.73m2 [facility] Comment on above: Result Comment: If t he patient is , multiply the result by 1.210. Performed By: #### L ####[address] [address] NURSING PROGon 03-30-2018 NURSING PROG HNO ID: [id number] thor: Rick (Rn) Yohan, JUAN RAMONervice: NursingAuthor Type: Registered NurseType: Nursing Progress NoteFiled: 03/30/2018 9:46 AMNote Text: Nursing Progress NotePatient Name: Joel Rivers: [id number] Location: [place] [address] [address] Daily Note:per order, sent text page to Dr. Wen informing that tPa gopi the floor.This note was completed by: Rick Almanzar RN Normal [facility] PROCEDUREon 03-30-2018 PROCEDURE HNO ID: [id number] thor: Janet Hudsonervice: Thoracic SurgeryAuthor Type: PhysicianType: ProceduresFiled: 03/30/2018 11:18 AMNote Text:5mg/50cc tPA instilled into patient's left chest tube with tube clamped.Pt tolerated well, no complications noted.?Continue clamp for 2-3 hours, with position change every 15 minutes toimprove penetration of TPA into pleural space. Clamp(s) can be removedafter this period of time and suction returned to previous level.Appropriate orders with instructions have been placed.Santos Wen MD03/30/201810:52 AMCXR, drainage reviewed and d/w resident and 2nd RX w tpa planned for todayas discussed. Thanks. Normal [facility] PROGRESSon 03-30-2018 PROGRESS HNO ID: [id number] thor: Kym Melendeze: [facility] MedicineAuthor Type: PhysicianType: Progress NotesFiled: 03/30/2018 10:59 AMNote Text:Subjective - Follow up note for [facility] Medicine, see also chartreview in 03/28 note.Per ID note today -'1. Pneumococcal pneumonia in setting of loculated left pleural effusion-fluid seems to be hemothorax rather than empyema so shorter course oftherapy (if was empyema then would do 4-6 weeks)-Continue unasyn for now with transition to augmentin 875 BID at dischargeor if current IV fails- stop date=04/07-f/u cytology of pleural fluid'Per CTS today -'52 year old male with Left Parapneumonic Effusion s/p CT on 03/27, PE/DVTand DVT s/p EGD with PUD and Colonoscopy- med mgmt per primary- cont Left CT to -20 sxn- daily CXR slightly improved today- tPA via chest tube yesterday, may repeat treatment today- Pleural Cx negative x2d- Cytology pending- Unasyn per ID- Ambulate- IS- pain controlAssessment and plan discussed with attending: Dr. Montelongo'Long discussion with pt this morning, I filled out paperwork fordisability insurance for pt, RN faxed for him. He is not looking forwardto another tPa procedure today as he was in a lot of pain after sameyesterday. Feels sl less swollen in hands after yesterday's lasix, still alot of edema in legs, does not want lasix again today due to not wantingto get up too much after tPa this afternoon (he is anticipating increasein pain). No fever or chills, no nausea or vomiting, no sob, pain withdeep breathing from chest tube.LongObjective - 03/30/1803BP: 149/55 126/61 113/67Pulse: 78 81 88Resp: 20 18 20Temp: 36.3 ?C (97.3 ?F) 36.7 ?C (98.1 ?F) 36.6 ?C (97.9 ?F)TempSrc: Oral OralSpO2: 97% 96% 99%Weight: 121.1 kg (267 lb)Height:?Results for JOEL MATSON ( ) as of 03/30/2018 10:37 Ref. Range 03/30/2018 04:25 03/30/2018 06:49 03/30/2018 09:15Sodium Latest Ref Range: 136 - 145 mEq/L 139Potassium Latest Ref Range: 3.5 - 5.1 mEq/L 3.9Chloride Latest Ref Range: 98 - 107 mEq/L 108 (H)CO2 Latest Ref Range: 21 - 32 mEq/L 28BUN Latest Ref Range: 7 - 18 mg/dL 4 (L)Creatinine Latest Ref Range: 0.67 - 1.17 mg/dL 0.52 (L)Glucose Latest Ref Range: 70 - 99 mg/dL 163 (H)Calcium Latest Ref Range: 8.5 - 10.1 mg/dL 8.3 (L)Phosphorus Latest Ref Range: 2.5 - 4.9 mg/dL 2.9Albumin Latest Ref Range: 3.4 - 5.0 g/dL 2.3 (L)eGFR Latest Ref Range: >60mL/min/1.73m2 >60Hematocrit Latest Ref Range: 40.1 - 51.0 % 25.9 (L)WBC Latest Ref Range: 4.23 - 9.07 thou/cmm 3.85 (L)RBC Latest Ref Range: 4.63 - 6.08 mil/cmm 2.83 (L)HGB Latest Ref Range: 13.7 - 17.5 g/dL 8.1 (L)Platelet Count Latest Ref Range: 141 - 365 thou/cmm 121 (L)MCV Latest Ref Range: 83.2 - 95.6 fl 91.5MCH Latest Ref Range: 25.7 - 32.2 pg 28.6MCHC Latest Ref Range: 32.3 - 36.5 % 31.3 (L)MPV Latest Ref Range: 8.7 - 12.0 fl 9.6RDW-SD Latest Ref Range: 36.1 - 45.8 fl 59.1 (H)Seg Neutrophil Latest Units: % 54.3Lymphocyte Latest Units: % 31.7Monocyte Latest Units: % 10.1Eosinophil Latest Units: % 2.9Basophil Latest Units: % 0.5Abs. Baso Latest Ref Range: 0.01 - 0.08 thou/cmm 0.02Abs. Eosin Latest Ref Range: 0.04 - 0.54 thou/cmm 0.11Immature Grans Latest Units: % 0.50Immature Grans # Latest Ref Range: 0.00 - 0.05 thou/cmm 0.02Abs. Lymph Latest Ref Range: 0.84 - 2.85 thou/cmm 1.22Abs. Mckenzie Latest Ref Range: 0.30 - 0.82 thou/cmm 0.39RDW Latest Ref Range: 11.6 - 14.4 % 18.2 (H)Abs. Neut(Anc) Latest Ref Range: 1.78 - 5.38 thou/cmm 2.09XR CHEST 1V FRONTAL Unknown RptGLUCOSE METER Latest Ref Range: 70 - 99 mg/dL 168 (H)Today's CXR report is pending.GEN - obese 52 yo wm lying flat in bed, NADHEENT - PERR, few teeth, thick neckCARD - RRRPULM - CTABL anterior, left chest tube is not draining at this timeABD - soft, nontenderEXT - less edema of left arm 'I can flex my fist now', edema of legs nochange, 4+NEURO - no focal deficitsAssessment/plan -1) CAP/parapneumonic effusion, urine pos for S pneumoniaeantigen/ANDREW/suspicion for PE (US of legs neg) IVC filter was placed on03/26 - as per CTS and ID, for tPa again today for loculated effusion?2) Acute blood loss anemia/EGD on ?03/25 showed 3 ulcers, colonoscopy on03/27 was normal - stable, of note, pt was diclofenac per home med list,will need capsule endoscopy of bleeding recurs per GI?3) Afib - was likely due to acute blood loss anemia, appears in NSR now,no anticoag due to #2, stable?4) hx of Testicular cancer - does not appear active by history, path andcytology pending on pleural fluid?5) DM -stable?6) Acute on chronic debility - PT and OT evals, up out of bed?7) Anasarca/edema/hypoalbuminemia - likely due to fluid resuscitationwhile in ICU and malnutrition, had IV lasix and albumin on 03/29, ptdeclines lasix today, consider lasix again on 03/31?8) GI and DVT prophylaxis - PPI, had IVC filter placed on 03/26 while inICU?8) Disposition - as above, will follow, appreciate ID and CTS for thisvery special pt. Discussed with pt and his RN. Disability paperwork filledout, RN faxed, originals to be returned to patient.? Normal [facility] PROGRESS HNO ID: [id number] thor: John Hernandez IIIService: Infectious DiseaseAuthor Type: PhysicianType: Progress NotesFiled: 03/30/2018 9:24 AMNote Text:Infectious Disease CONSULT PROGRESS NOTESERVICE DATE: March 30, 2018 9:23 AMCONSULTING SERVICE: Internal MedicineINTERVAL HISTORY OF PRESENT ILLNESS:F/u pneumococcal pneumonia with loculated pleural effusionPatient feeling well. Only complaint is that he had a lot of pain when TPAplaced into his chest tube yesterday.No fevers or chills.No nausea, diarrhea or rashes with the antibiotics.Current Facility-Administered Medications:alteplase 5 mg in NaCl 0.9% 45 mL intrapleural syringe 5 mg INTRAPLEURALONCEampicillin-sulbac barbosa 3 g in NaCl 0.9% 100 mL MB+ (UNASYN) 3 g INTRAVENOUSq 6 HoxyCODONE IR 5-10 mg tab(s) (ROXICODONE) 5-10 mg ORAL q 4 H PRNmorphine 4 mg injection 4 mg INTRAVENOUS q [address] 40 mg tab(s) (PROTONIX) 40 mg ORAL BID AC (0600/1600)insulin regular human injection (short acting) (NovoLIN R,HumuLIN R)SUBCUTANEOUS w MEALS AND HSdextrose 40 % 15 g 15 g ORAL PRNOrglucagon 1 mg injection (GLUCAGEN) 1 mg INTRAMUSCULAR PRNOrdextrose 50% in water 25 mL syringe 12.5 g INTRAVENOUS PRNprochlorperazine 5 mg injection (COMPAZINE) 5 mg INTRAVENOUS q 6 H PRNObjectivePHYSICAL EXAM:Patient Vitals for the past 24 hrs: BP Temp Temp src Pulse Resp SpO2 Iftuyz92/23/18 0700 130/64 36.5 ?C (97.7 ?F) Oral 78 18 100 % -03/29/18 0527 - - - - - - 122 kg (268 lb 14.4 oz)03/29/18 0232 128/61 36.7 ?C (98.1 ?F) Temporal Art 71 18 100 % -03/28/18 2236 117/52 36 ?C (96.8 ?F) Temporal Art 72 18 97 % -03/28/18 1950 126/55 36.9 ?C (98.4 ?F) Temporal Art 88 18 98 % -03/28/18 1515 126/57 36.9 ?C (98.4 ?F) Temporal Art 82 18 96 % -03/28/18 1100 142/61 36.7 ?C (98.1 ?F) Oral 79 20 96 % -Body mass index is 40.6 kg/m?.GENERAL: Alert, no distress, cooperativeSKIN: Skin color, texture, turgor normal. No rashes or lesions.OROPHARYNX: Lips, mucosa, and tongue are normal.Teeth and gums, normal.Oropharynx normal.LUNGS: Clear to auscultation bilaterally. Left sided chest tube in place.CARDIAC: Normal S1 and S2; no rubs, murmurs, or gallopsABDOMEN: Abdomen soft, non-tender, BS normal, No masses or organomegalyDATA:Diagnostic tests reviewed for today's visit:Component Latest Ref Rng AND Units 03/30/2018WBC 4.23 - 9.07 thou/cmm 3.85 (L)RBC 4.63 - 6.08 mil/cmm 2.83 (L)HGB 13.7 - 17.5 g/dL 8.1 (L)Hematocrit 40.1 - 51.0 % 25.9 (L)MCV 83.2 - 95.6 fl 91.5MCH 25.7 - 32.2 pg 28.6MCHC 32.3 - 36.5 % 31.3 (L)RDW 11.6 - 14.4 % 18.2 (H)RDW-SD 36.1 - 45.8 fl 59.1 (H)Platelet Count 141 - 365 thou/cmm 121 (L)MPV 8.7 - 12.0 fl 9.6Seg Neutrophil % 54.3Immature Grans % 0.50Lymphocyte % 31.7Monocyte % 10.1Eosinophil % 2.9Basophil % 0.5Abs. Neut(Anc) 1.78 - 5.38 thou/cmm 2.09Immature Grans # 0.00 - 0.05 thou/cmm 0.02Abs. Lymph 0.84 - 2.85 thou/cmm 1.22Abs. Mckenzie 0.30 - 0.82 thou/cmm 0.39Abs. Eosin 0.04 - 0.54 thou/cmm 0.11Abs. Baso 0.01 - 0.08 thou/cmm 0.02Sodium 136 - 145 mEq/L 139Potassium 3.5 - 5.1 mEq/L 3.9Chloride 98 - 107 mEq/L 108 (H)CO2 21 - 32 mEq/L 28Glucose 70 - 99 mg/dL 163 (H)BUN 7 - 18 mg/dL 4 (L)Creatinine 0.67 - 1.17 mg/dL 0.52 (L)Calcium 8.5 - 10.1 mg/dL 8.3 (L)Albumin 3.4 - 5.0 g/dL 2.3 (L)Phosphorus 2.5 - 4.9 mg/dL 2.9CXR: 03/30/2018persistent pleural effusion.Impression/Recommendatio ns1. Pneumococcal pneumonia in setting of loculated left pleural effusion-fluid seems to be hemothorax rather than empyema so shorter course oftherapy (if was empyema then would do 4-6 weeks)-Continue unasyn for now with transition to augmentin 875 BID at dischargeor if current IV fails- stop date=04/07-f/u cytology of pleural fluid??2. Severe anemia, attributed to GI bleeding.- GI signed off. Will do capsule endoscopy if bleeding recurs.?3. History of testicular cancer, treated with resection and radiationtherapy. ??4. Diabetes mellitus.?5. Atrial fibrillation.-off amioSIGNATURE: John Hernandez III, MD PATIENT NAME: Joel MatsonDATE: March 30, 2018 : 9:20 AM PAGER/CONTACT #: [phone] [facility] PROGRESS HNO ID: [id number] thor: Janet Hudsonervice: Thoracic SurgeryAuthor Type: PhysicianType: Progress NotesFiled: 03/30/2018 1:24 PMNote Text:Thoracic Surgery Progress NoteSERVICE DATE: 03/30/2018SubjectiveSUBJECTIVE:JULIA ON, pain control improved following tPADenies N/V/CP/SOBDiet: DIET CARBOHYDRATE CONTROLLEDObjectiveOBJECTIVE:Renetta ls:Temp (24hrs), Av.6 ?C (97.9 ?F), Min:36.3 ?C (97.3 ?F), Max:36.9 ?C(98.4 ?F)BP 126/61 Pulse 81 Temp 36.7 ?C (98.1 ?F) (Oral) Resp 18 Ht172.7 cm (5' 8 ) Wt 122 kg (268 lb 14.4 oz) SpO2 96% BMI 40.89kg/m?O2 Therapy: Room AirIANDO:Date 03/29/18699 - 03/30/18 0659 03/30/18699 - 03/31/18 0659Shift 8591-7214 6881-8435 7541-5121 24 Hour Total 2143-2932 [id number] 24 Hour TotalINTAKE PO 480 025 365 3477 PO 480 175 033 1716 IV 200 100 300 ALBUMIN (mL) 100 100 Ampicillin/Sulbactam (Unasyn) IV 100 100 200 Shift Total 480 620 580 1680OUTPUT Urine 3 402 2 407 Void (ml) 400 400 Urine Not Saved 3 2 2 7 Chest Tube 40 375 50 465 Chest Tube Output (Chest Tube 03/27/18 1828 Left Lateral Tube #1) 50554 50 465 Shift Total 43 777 52 872Weight (kg) 122 122 122 122 122 122 122 122MEDICATIONSCurrent Facility-Administered Medications:ampicillin-sulbactam 3 g in NaCl 0.9% 100 mL MB+ (UNASYN) 3 g INTRAVENOUSq 6 HoxyCODONE IR 5-10 mg tab(s) (ROXICODONE) 5-10 mg ORAL q 4 H PRNmorphine 4 mg injection 4 mg INTRAVENOUS q 2 H PRNpotassium chloride ER 40 mEq tab(s) (K-DUR, KLOR-CON) 40 mEq ORAL BIDpantoprazole DR 40 mg tab(s) (PROTONIX) 40 mg ORAL BID AC (0600/1600)insulin regular human injection (short acting) (NovoLIN R,HumuLIN R)SUBCUTANEOUS w MEALS AND HSdextrose 40 % 15 g 15 g ORAL PRNOrglucagon 1 mg injection (GLUCAGEN) 1 mg INTRAMUSCULAR PRNOrdextrose 50% in water 25 mL syringe 12.5 g INTRAVENOUS PRNprochlorperazine 5 mg injection (COMPAZINE) 5 mg INTRAVENOUS q 6 H PRNLabs:Recent Labs 03/29/1814318NA 139 -- 142 -- 141K 3.9 -- 3.6 -- 3.7CHLOR 108* -- 111* -- 112*CO2 28 -- 26 -- 23BUN 4* -- 6* -- 4*CREAT 0.52* -- 0.61* -- 0.54*GLUC 163* -- 188* -- 121*ANION -- -- -- -- 10CA 8.3* -- 8.0* -- 7.4*P 2.9 -- 2.4* -- --ALB 2.3* -- 1.8* -- --WBC 3.85* -- 3.38* -- 3.51*HB 8.1* 7.7* 7.8* < > 7.3*HCT 25.9* -- 25.1* -- 23.1*PLT 121* -- 105* -- 75*< > = values in this interval not displayed.Exam:GENERAL: No distress, AlertNEURO: AANDOx3, CN II-XII grossly intactHEENT: normocephalic, atraumaticLUNGS: Unlabored breathing O2 Therapy: Room Air, Left CT -20 sxn,serous?output, no?leakCARDIAC: Regular rate and rhythm as aboveABDOMEN: Soft, non-tender, non-distendedEXTREMITIES: FLORES, No deformities, No edemaSKIN: Skin color, texture, turgor normal, No rashes or lesionsASSESSMENT AND PLAN:Active Hospital Problems Diagnosis Date Noted- Obstructive sleep apnea 03/26/2018 Chronic- Diabetes (HCC) 03/26/2018 Chronic- Nicotine use disorder, F17.2 03/25/2018- Obesity, Class III, BMI >= 40 03/25/2018- Malnutrition of moderate degree ([facility]) 03/25/2018- Anemia 03/24/2018- Atrial fibrillation with RVR ([facility]) 03/24/2018- Pulmonary embolism ([facility]) 03/24/2018- GI bleed 03/24/2018 Overview Note: Added automatically from request for surgery [id number] year old male with Left Parapneumonic Effusion s/p CT on 03/27, PE/DVTand DVT s/p EGD with PUD and Colonoscopy?- med mgmt per primary- cont Left CT to -20 sxn- daily CXR slightly improved today- tPA via chest tube yesterday, may repeat treatment today- Pleural Cx negative x2d- Cytology pending- Unasyn per ID- Ambulate- IS- pain control?Assessment and plan discussed with attending: Dr. GuzmanATURE: Santos Wen MD PATIENT NAME: Joel HiserDATE: March 30, 2018 : 6:09 AM Pager: [phone] seen. Labs, data, drainage, and cxr reviewed and d/w residents.P-redose tpa today. Normal [facility] Renal Panelon 03-30-2018 Creatinine 0.52 mg/dL Low 0.67-1.17 [facility] Comment on above: Performed By: #### L ####[facility] [place], [place] [address] Phosphate 2.9 mg/dL Normal 2.5-4.9 [facility] Comment on above: Performed By: #### L DH ####[place] [id number] Albumin 2.3 g/dL Low 3.4-5.0 [facility] Comment on above: Performed By: #### L DH ####[facility] [place], [place] [address] CO2 28 mmol/L Normal 21-32 [facility] Comment on above: Performed By: #### L DH ####[facility] [place], [place] [address] Glucose mass conc 163 mg/dL High 70-99 [facility] Comment on above: Performed By: #### L DH ####[place] [address] Urea nitrogen 4 mg/dL Low 7-18 [facility] Comment on above: Performed By: #### L DH ####[address] [address] Calcium 8.3 mg/dL Low 8.5-10.1 [facility] Comment on above: Performed By: #### L DH ####[place] [address] Chloride 108 mmol/L High 98-107 [facility] Comment on above: Performed By: #### L DH ####[place] [address] Potassium molar conc 3.9 mmol/L Normal 3.5-5.1 [facility] Comment on above: Performed By: #### L DH ####[place] [address] Sodium 139 mmol/L Normal 136-145 [facility] Comment on above: Performed By: #### L DH ####[place] [address] ALLIED HEALTHon 03-29-2018 ALLIED HEALTH HNO ID: [id number] thor: EMILIO Rubio Lpnervice: Home Care ServicesAuthor Type: LICENSED NURSEType: Allied HealthFiled: 03/29/2018 11:45 AMNote Text:PENSIONS RETIREMENT PLAN SPECIALIST NOTESERVICE DATE: 03/29/2018SERVICE TIME: 1145 No PCP listed will need prior to setting up hhc.SIGNATURE: Courtney Nickerson LPN PATIENT NAME: Joel MatsonDATE: March 29, 2018 : 11:29 AM Normal [facility] BF Cell Count/Diffon 018 Body Fluid Interp See below Normal [facility] Comment on above: Result Comment: No m alignant cells identified. Performed By: #### T &S ####[place] [address] Interp. by: See below Normal [facility] Comment on above: Result Comment: Eva Adhikari M.D., Pathologist Performed By: #### T &S ####[place] [address] CASE MANAGEMon 03-29-2018 CASE MANAGEM HNO ID: [id number] thor: Breann (Rn) Lela, RNService: Care ManagementAuthor Type: Registered NurseType: Care Mgt Progress NoteFiled: 03/29/2018 11:29 AMNote Text:PT recs home. Discharge plan remains home with spouse when medicallyready for discharge. Per Dr. Hernandez, will discharge on oral atbx. Normal [facility] CHEST 1 VIEWon 03-29-2018 Protein Performed at [facility] APPROVED BY: Franklin Winn MD EXAM TITLE: CHEST 1 VIEW DATE: 03/29/2018 06:43 INDICATION: Follow-up for left chest tube COMPARISON: 03/28/2018 FINDINGS: Left thoracostomy tube is stable in position. There is continued left basilar opacity that is likely secondary to a combination of atelectasis and pleural fluid. There is no visible pneumothorax. The right lung is relatively clear. Heart is not enlarged. Osseous structures are intact. IMPRESSION: Stable appearance. Normal [facility] Glucose Meteron 03-29-2018 Glucose mass conc 255 mg/dL High 70-99 [facility] Comment on above: Result Comment: RN N OTIFIED Performed By: #### L DH ####[place] [address] Glucose mass conc 254 mg/dL High 70-99 [facility] Comment on above: Result Comment: INEZ N OTIFIED Performed By: #### L DH ####[address] [address] Glucose mass conc 197 mg/dL High 70-99 [facility] Comment on above: Result Comment: RN N OTIFIED Performed By: #### L DH ####[address] [address] Glucose mass conc 205 mg/dL High 70-99 [facility] Comment on above: Result Comment: RN N OTIFIED Performed By: #### R BCPS ####[place] [address] Hemogram/Diffon 03-29-2018 Abs Immature Grans 0.03 thou/cmm Normal 0.00-0.05 [facility] Comment on above: Performed By: #### R BCPS ####[place] [address] Abs. Baso 0.01 thou/cmm Normal 0.01-0.08 [facility] Comment on above: Performed By: #### R BCPS ####[place] [address] Abs. Mckenzie 0.40 thou/cmm Normal 0.30-0.82 [facility] Comment on above: Performed By: #### R BCPS ####[place] [address] Abs. Neut (ANC) 1.82 thou/cmm Normal 1.78-5.38 [facility] Comment on above: Performed By: #### R BCPS ####[place] [address] Basophils/100 WBC Auto (Bld) 0.3 % Normal [facility] Comment on above: Performed By: #### R BCPS ####[address] [address] Eosinophils 0.11 thou/cmm Normal 0.04-0.54 [facility] Comment on above: Performed By: #### R BCPS ####[place] [address] Eosinophils/100 leukocytes 3.3 % Normal [facility] Comment on above: Performed By: #### R BCPS ####[place] [address] Erythrocyte distribution width Auto Ratio (RBC) 19.9 % High 11.6-14.4 [facility] Comment on above: Performed By: #### R BCPS ####[place] [address] Erythrocytes (RBC) 2.72 mil/cmm Low 4.63-6.08 [facility] Comment on above: Performed By: #### R BCPS ####[place] [address] Hematocrit (HCT) 25.1 % Low 40.1-51.0 [facility] Comment on above: Performed By: #### R BCPS ####[place] [address] Hemoglobin mass conc (Bld) 7.8 g/dL Low 13.7-17.5 [facility] Comment on above: Performed By: #### R BCPS ####[place] [address] Immature Grans 0.90 % Normal [facility] Comment on above: Performed By: #### R BCPS ####[place] [address] Lymphocytes 1.01 thou/cmm Normal 0.84-2.85 [facility] Comment on above: Performed By: #### R BCPS ####[place] [address] Lymphocytes/100 leukocytes 29.9 % Normal [facility] Comment on above: Performed By: #### R BCPS ####[place] [address] MCH 28.7 pg Normal 25.7-32.2 [facility] Comment on above: Performed By: #### R BCPS ####[place] [address] MCHC mass conc (RBC) 31.1 % Low 32.3-36.5 [facility] Comment on above: Performed By: #### R BCPS ####[place] [address] MCV 92.3 fL Normal 83.2-95.6 [facility] Comment on above: Performed By: #### R BCPS ####[address] [address] Monocytes/100 leukocytes 11.8 % Normal [facility] Comment on above: Performed By: #### R BCPS ####[place] [address] Platelet mean volume (PMV) 9.4 fL Normal 8.7-12.0 [facility] Comment on above: Performed By: #### R BCPS ####[place] [address] Platelets 105 thou/cmm Low 141-365 [facility] Comment on above: Performed By: #### R BCPS ####[place] [address] RDW SD 63.4 fl High 36.1-45.8 [facility] Comment on above: Performed By: #### R BCPS ####[place] [address] Seg Neutrophil 53.8 % Normal [facility] Comment on above: Performed By: #### R BCPS ####[place] [address] WBC (Leukocytes) 3.38 thou/cmm Low 4.23-9.07 [facility] Comment on above: Performed By: #### R BCPS ####[place] [address] Hgbon 03-29-2018 Hemoglobin mass conc (Bld) 7.7 g/dL Low 13.7-17.5 [facility] Comment on above: Performed By: #### L DH ####[place] [address] Histoplasma Ab - CFon 2017 Histoplasma Ab - CF SEE BELOW Normal [facility] Comment on above: Result Comment: Hist o Yeast AB-CF <1:8 DLT8 Dilutions Reference Range: Negative <1:8Histo Mycelial AB-CF <1:8 DLT8 Dilutions Reference Range: Negative <1:8Performing Laboratory:[facility] [address] [place] [address] Performed By: #### L DH ####[facility] [place], [place] [address] MDRD GFRon 03-29-2018 eGFR (non-black) mL/min/{1.73_m2} Normal >60mL/m in/ 1.73m2 [facility] Comment on above: Result Comment: If t he patient is , multiply the result by 1.210. Performed By: #### R BCPS ####[address] [address] NURSING PROGon 03-29-2018 NURSING PROG HNO ID: [id number] thor: Ritu (Rn) JUAN RAMON Henleyervice: NursingAuthor Type: Registered NurseType: Nursing Progress NoteFiled: 03/29/2018 4:48 PMNote Text:Pt chest tube unclamped at 16:00 per MD order, 200cc of yellow/serousdrainage went into canister. Pt began having increased pain at chest tubesite, especially bad with deep breathing, inside of Left chest into hisback. Dr. East notified, new pain med orders in place. Morphine [address] Lund with thoracic surgery notified. Will call back ifpain does not improve. Normal 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 PCP didoutpt stress test which was normal and ECHO which showed LVEF=70%. Went [facility] ED 03/24 and found to have Hgb 4.4 (last check on 03/03 was 13.5).Also a-fib RVR, no h/o arrhythmias started on amiodarone. CTPE showedloculated pleural effusion L suspicious for empyema given recent pna aswell as LLL PEs. No anticoagulation given suspected GI bleed. Patientreported he maybe had loose black stools with the pna, but no gross bloodin stools, that resolved, normal BMs now. Small blood streaked sputum alsowith the pna which has resolved. Endorses lightheadedness with standing.Interval History: EGD on 03/25/18 showed 3 small non bleeding gastriculcers, biopsied. ID consulted managing antibiotics. IVC filter placedon 03/26/18. Colonoscopy completed on 03/27 revealed melena in the cecum.Chest tube inserted on 03/27 following colonoscopy. BM 03/28Present Diet Order: Carbohydrate ControlledNutritional Intake: >75% estimated energy needs over the past 5 day(s),reports appetite improving and tolerating po well. + flatus, small BM03/28. Denies N/V/C/DReports poor po 3-4 weeks prior to admission eating 0-25% of estimatedneeds with sugar-free jello and bites of meals.Admission Weight: 120.1 kg (264 lb 12.4 oz)Current Weight: 122 kg (268 lb 14.4 oz)Body mass index is 40.89 kg/m?. class 3 obesityReports usual body weight 250 lbs about 3 weeks ago. Noted weight gain of18 lbs from usual body weight.Edema generalized 1+, bilateral upper extremities 2+ and bilateral lowerextremities 1+.Last 12 Encounter Wt Readings: Date: Wt: 03/24/2018 122 kg (268 lb 14.4 oz) 08/01/2007 114.3 kg (252 lb)No chartmaxx records to review.ALLERGIESNo Known AllergiesCurrent Facility-Administered Medications:pantoprazole DR 40 mg tab(s) (PROTONIX) 40 mg ORAL BID AC (0600/1600)insulin regular human injection (short acting) (NovoLIN R,HumuLIN R)SUBCUTANEOUS w MEALS AND HSoxyCODONE IR 5 mg tab(s) (ROXICODONE) 5 mg ORAL q 4 H PRNcefTRIAXone iv piggyback 2 g in dextrose (iso-osmotic) 50 mL (ROCEPHIN) 2g INTRAVENOUS q 24 Hdoxycycline 100 mg in D5W 250 mL (VIBRAMYCIN) 100 mg INTRAVENOUS q 12 Hdextrose 40 % 15 g 15 g ORAL PRNOrglucagon 1 mg injection (GLUCAGEN) 1 mg INTRAMUSCULAR PRNOrdextrose 50% in water 25 mL syringe 12.5 g INTRAVENOUS PRNprochlorperazine 5 mg injection (COMPAZINE) 5 mg INTRAVENOUS q 6 H PRNSurgical Incision 03/26/18 1300 Femoral - Left (Active)Dressing Status Clean, Dry AND Intact 03/28/2018 7:50 PMFrequency of Dressing Change As Needed 03/28/2018 7:50 PMDressing /Treatment Type Band Aid 03/28/2018 7:50 PMIncision Closures Other: See Comment 03/26/2018 8:00 PMDrainage Description None 03/28/2018 7:50 PMDrainage Amount None 03/28/2018 7:50 PMEdges Intact 03/28/2018 7:40 AMHematoma No 03/28/2018 7:50 PMNumber of days: 2MNT Billing Type: Re-assess/15 min 2 unitsSIGNATURE: Mitali Trinidad RD, LD PATIENT NAME: Joel MatsonDATE: March 29, 2018 : 9:43 AM PAGER: [phone] [facility] PROCEDUREon 03-29-2018 PROCEDURE HNO ID: [id number] thor: Janet Watkinsice: Thoracic SurgeryAuthor Type: PhysicianType: ProceduresFiled: 03/29/2018 5:20 PMNote Text:TPA 60cc/Lidocaine 1% 15cc instilled into patient's left chest tube withtube clamped. Pt tolerated well, no complications noted.Continue clamp for 2-3 hours, with position change every 15 minutes toimprove penetration of TPA into pleural space. Clamp(s) can be removedafter this period of time and suction returned to previous level.Appropriate orders with instructions have been placed.SIGNATURE: Caterina Landin MD PATIENT NAME: Joel MatsonDATE: March 29, 2018 : 1:17 PM PAGER/CONTACT #: [phone] discussed and thanks. [facility] PROGRESSon 03-29-2018 PROGRESS HNO ID: [id number] thor: Kym Liu: [facility] MedicineAuthor Type: PhysicianType: Progress NotesFiled: 03/29/2018 5:39 PMNote Text:Subjective - Follow up note for [facility] Medicine, see also 03/28note for chart review.Paged earlier by RN re: pt's pain not controlled, more pain after CTmanipulation. I adjusted pain meds, asked RN to alert CTS.Per ID today -'1. Loculated left pleural effusion. Based on cell counts, looks more likehemothorax- Chest tube in place. CT surgery: tPA in the chest tube today.- CXR today: looks about the same.Fluid studies: amylase: 21. Glucose: 133. LD: 217. Protein: 1.7. PH:7.680.RBC: 24951. No serum LDH or Protein sent.Cultures, AFB, cytology pending.- urine strep Pnemo positive.- Will stop Ceftriaxone and doxycycline. Will start Unasyn today..?Patient received one dose of Piperacillin/Tazobactam ?Likely will gowith shorter course of therapy if no growth from pleural fluid since thislooks more likely hemothorax.- IVC filter in place.'Per CTS today -'52 year old male with Left Parapneumonic Effusion s/p CT on 03/27, PE/DVTand DVT s/p EGD with PUD and Colonoscopy- med mgmt per primary- cont Left CT to -20 sxn- daily CXR pending- tPA via chest tube today- Pleural Cx negative x1d- Cytology pending- Rocephin/Doxy per ID- Ambulate- IS- pain controlAssessment and plan discussed with attending: Dr. Montelongo'GI signed off on 03/28, would need capsule endoscopy if further bleeding.This afternoon, pt says pain is finally controlled, the IV morphinehelped, he is wearing his CPAP, says 'it is helping open up my lungs,still hurts in my back'. No fever or chills, is hoping to get up and walktomorrow, but would like to rest today due to the pain from themanipulation earlier.Objective - 03/29/1805630BP: 128/61 130/64 145/53Pulse: 71 78 86Resp: 18 18 20Temp: 36.7 ?C (98.1 ?F) 36.5 ?C (97.7 ?F) 36.9 ?C (98.4 ?F)TempSrc: Temporal Artery Oral Temporal ArterySpO2: 100% 100% 100%Weight: 122 kg (268 lb 14.4 oz)Height:Results for JOEL MATSON ( ) as of 03/29/2018 17:19 Ref. Range 03/28/2018 14:10 03/29/2018 02:45 03/29/2018 14:49Sodium Latest Ref Range: 136 - 145 mEq/L 142Potassium Latest Ref Range: 3.5 - 5.1 mEq/L 3.6Chloride Latest Ref Range: 98 - 107 mEq/L 111 (H)CO2 Latest Ref Range: 21 - 32 mEq/L 26BUN Latest Ref Range: 7 - 18 mg/dL 6 (L)Creatinine Latest Ref Range: 0.67 - 1.17 mg/dL 0.61 (L)Glucose Latest Ref Range: 70 - 99 mg/dL 188 (H)Calcium Latest Ref Range: 8.5 - 10.1 mg/dL 8.0 (L)Phosphorus Latest Ref Range: 2.5 - 4.9 mg/dL 2.4 (L)Albumin Latest Ref Range: 3.4 - 5.0 g/dL 1.8 (L)eGFR Latest Ref Range: >60mL/min/1.73m2 >60Hematocrit Latest Ref Range: 40.1 - 51.0 % 25.1 (L)WBC Latest Ref Range: 4.23 - 9.07 thou/cmm 3.38 (L)RBC Latest Ref Range: 4.63 - 6.08 mil/cmm 2.72 (L)HGB Latest Ref Range: 13.7 - 17.5 g/dL 7.7 (L) 7.8 (L) 7.7 (L)Platelet Count Latest Ref Range: 141 - 365 thou/cmm 105 (L)MCV Latest Ref Range: 83.2 - 95.6 fl 92.3MCH Latest Ref Range: 25.7 - 32.2 pg 28.7MCHC Latest Ref Range: 32.3 - 36.5 % 31.1 (L)MPV Latest Ref Range: 8.7 - 12.0 fl 9.4RDW-SD Latest Ref Range: 36.1 - 45.8 fl 63.4 (H)Seg Neutrophil Latest Units: % 53.8Lymphocyte Latest Units: % 29.9Monocyte Latest Units: % 11.8Eosinophil Latest Units: % 3.3Basophil Latest Units: % 0.3Abs. Baso Latest Ref Range: 0.01 - 0.08 thou/cmm 0.01Abs. Eosin Latest Ref Range: 0.04 - 0.54 thou/cmm 0.11Immature Grans Latest Units: % 0.90Immature Grans # Latest Ref Range: 0.00 - 0.05 thou/cmm 0.03Abs. Lymph Latest Ref Range: 0.84 - 2.85 thou/cmm 1.01Abs. Mckenzie Latest Ref Range: 0.30 - 0.82 thou/cmm 0.40RDW Latest Ref Range: 11.6 - 14.4 % 19.9 (H)Abs. Neut(Anc) Latest Ref Range: 1.78 - 5.38 thou/cmm 1.82?Labs appear stable.Fluid cytology is still pending from 03/27. Neg for Histo abx, no yeast ormold isolated to date, pleural fluid no growth to date.STREP PNEUMONIAE AG (Final) OHRON LABPositive for pneumococcal pneumoniaGEN - morbidly obese 52 yo wm lying completely flat in bed, wearing CPAP,alert and oriented, NADHEENT - thick neck, mouth moist,CARD - RRRPULM - sounds clear anterior, has left chest tube on suction drainingfluids that appears yellowish with sl blood tingeABD - soft, nontenderEXT - still has edema in legs and hands/armsNEURO - no focal deficitsAssessment/plan -?1) CAP/parapneumonic effusion, urine pos for S pneumoniaeantigen/ANDREW/suspicion for PE (US of legs neg) - as per CTS and ID, painnow controlled after manipulation today (tPA). IVC filter was placed on03/26.?2) Acute blood loss anemia/EGD on 03/25 showed 3 ulcers, colonoscopy on03/27 was normal - stable, of note, pt was diclofenac per home med list,will need capsule endoscopy of bleeding recurs per GI?3) Afib - was likely due to acute blood loss anemia, appears in NSR now,no anticoag due to #2?4) hx of Testicular cancer - does not appear active by history, path andcytology pending on pleural fluid?5) DM -stable?6) Acute on chronic debility - PT and OT evals, up out of bed7) Anasarca/edema/hypoalbuminemia - likely due to fluid resuscitationwhile in ICU and malnutrition, trial of one dose of IV lasix today with IValbumin, reassess 03/30.?8) GI and DVT prophylaxis - PPI, had IVC filter placed on 03/26 while inICU?8) Disposition - as above, will follow, appreciate ID and CTS for thisvery special pt Normal [facility] PROGRESS HNO ID: [id number] thor: Queta (Rn) SlaJUAN RAMON yuanervice: PICC TeamAuthor Type: Registered NurseType: Progress NotesFiled: 03/29/2018 2:35 PMNote Text:PICC/VASCULAR ACCESS PROGRESS NOTESERVICE DATE: 03/29/2018SERVICE TIME: 1430Procedure for placement of intravenous catheter with use of ultrasoundguidance and need for catheter explained to patient with verbalunderstanding given by patient.Following hospital protocol, a 20g 2.25inch Bard AccuCath catheter wasplaced using ultrasound guidance to right without difficulty on the firstattempt. Catheter with brisk blood return and flushes easily with 10ccnormal saline. Catheter capped. StatLock stabilization device applied.Site dressing per hospital policy. Patient tolerated procedure well.Local Anesthetic : 1% lidocaine given at site per policySIGNATURE: Queta Helm RN PATIENT NAME: Joel MatsonDATE: March 29, 2018 : 2:33 PM PAGER/CONTACT #: [phone] [facility] PROGRESS HNO ID: [id number] thor: John Hernandez IIIService: Infectious DiseaseAuthor Type: PhysicianType: Progress NotesFiled: 03/29/2018 11:37 AMNote Text:Infectious Disease CONSULT PROGRESS NOTESERVICE DATE: 03/29/2018SERVICE TIME: 8:31 AMCONSULTING SERVICE: Internal MedicineThe patient is a 52-year-old man with past medical history of DM, ANDREW,history of testicular caner. Was transferred ?from [facility] for severe anemia, severe dyspnea and A fib withRapid Ventricular Rate. Patient was found to have a?loculated left pleuraleffusion with left lower lobe infiltrate and left lower ?lobe pulmonaryembolism. Due to to very low HB and suspected GI bleed patient could notbe anticoagulated. IVC filter was placed yesterday by vascular. Patientgot an EGD which showed 3 gastric ulcer but unlikely the source ofbleeding.Was initially on Piperacillin/Tazobactam and now on Ceftriaxone anddoxycycline.Urine Strep Pnemo was positive. Patient had a colonoscopy which showedtarry stool in the cecum and has a chest tube in place.INTERVAL HISTORY OF PRESENT ILLNESS:Patient sitting by the side of the bed eating breakfast. Less pain today.Has been able to get out of bed and use the washroom.No fevers or chills. No nausea or diarrhea. No cough at present.Current Facility-Administered Medications:pantoprazole DR 40 mg tab(s) (PROTONIX) 40 mg ORAL BID AC (0600/1600)insulin regular human injection (short acting) (NovoLIN R,HumuLIN R)SUBCUTANEOUS w MEALS AND HSoxyCODONE IR 5 mg tab(s) (ROXICODONE) 5 mg ORAL q 4 H PRNcefTRIAXone iv piggyback 2 g in dextrose (iso-osmotic) 50 mL (ROCEPHIN) 2g INTRAVENOUS q 24 Hdoxycycline 100 mg in D5W 250 mL (VIBRAMYCIN) 100 mg INTRAVENOUS q 12 Hdextrose 40 % 15 g 15 g ORAL PRNOrglucagon 1 mg injection (GLUCAGEN) 1 mg INTRAMUSCULAR PRNOrdextrose 50% in water 25 mL syringe 12.5 g INTRAVENOUS PRNprochlorperazine 5 mg injection (COMPAZINE) 5 mg INTRAVENOUS q 6 H PRNObjectivePHYSICAL EXAM:Patient Vitals for the past 24 hrs: BP Temp Temp src Pulse Resp SpO2 Tjyycn86/23/18 0700 130/64 36.5 ?C (97.7 ?F) Oral 78 18 100 % -03/29/18 0527 - - - - - - 122 kg (268 lb 14.4 oz)03/29/18 0232 128/61 36.7 ?C (98.1 ?F) Temporal Art 71 18 100 % -03/28/18 2236 117/52 36 ?C (96.8 ?F) Temporal Art 72 18 97 % -03/28/18 1950 126/55 36.9 ?C (98.4 ?F) Temporal Art 88 18 98 % -03/28/18 1515 126/57 36.9 ?C (98.4 ?F) Temporal Art 82 18 96 % -03/28/18 1100 142/61 36.7 ?C (98.1 ?F) Oral 79 20 96 % -Body mass index is 40.89 kg/m?.GENERAL: Alert, no distress, cooperativeSKIN: Skin color, texture, turgor normal. No rashes or lesions.OROPHARYNX: Lips, mucosa, and tongue are normal.Teeth and gums, normal.Oropharynx normal.NECK: No jugulovenous distention, No carotid bruits, Carotid pulse normalcontour, SuppleLUNGS: crackles present on the left side.CARDIAC: Normal S1 and S2; no rubs, murmurs, or gallopsABDOMEN: Abdomen soft, non-tender, BS normal, No masses or organomegalyEXTREMITIES: Extremities normal, no deformities, clubbing or skindiscoloration. Good capillary refill., No ulcers. 2+ pitting edemapresent.NEURO: Alert, oriented X 3, Gait normal. Non-focal. Reflexes normal andsymmetric. Sensation grossly intact., Cranial nerves II-XII intactPULSES: 2+ radial, 2+ carotidDATA:Diagnostic tests reviewed for today's visit:Component Latest Ref Rng AND Units 03/28/2018 03/28/2018 03/29/2018 3:18 AM 2:10 PMWBC 4.23 - 9.07 thou/cmm 3.51 (L) 3.38 (L)RBC 4.63 - 6.08 mil/cmm 2.51 (L) 2.72 (L)HGB 13.7 - 17.5 g/dL 7.3 (L) 7.7 (L) 7.8 (L)Hematocrit 40.1 - 51.0 % 23.1 (L) 25.1 (L)MCV 83.2 - 95.6 fl 92.0 92.3MCH 25.7 - 32.2 pg 29.1 28.7MCHC 32.3 - 36.5 % 31.6 (L) 31.1 (L)RDW 11.6 - 14.4 % 20.7 (H) 19.9 (H)RDW-SD 36.1 - 45.8 fl 62.0 (H) 63.4 (H)Platelet Count 141 - 365 thou/cmm 75 (L) 105 (L)MPV 8.7 - 12.0 fl 10.2 9.4Seg Neutrophil % 53.8Immature Grans % 0.90Lymphocyte % 29.9Monocyte % 11.8Eosinophil % 3.3Basophil % 0.3Abs. Neut(Anc) 1.78 - 5.38 thou/cmm 1.82Immature Grans # 0.00 - 0.05 thou/cmm 0.03Abs. Lymph 0.84 - 2.85 thou/cmm 1.01Abs. Mckenzie 0.30 - 0.82 thou/cmm 0.40Abs. Eosin 0.04 - 0.54 thou/cmm 0.11Abs. Baso 0.01 - 0.08 thou/cmm 0.01Sodium 136 - 145 mEq/L 141 142Potassium 3.5 - 5.1 mEq/L 3.7 3.6Chloride 98 - 107 mEq/L 112 (H) 111 (H)CO2 21 - 32 mEq/L 23 26Glucose 70 - 99 mg/dL 121 (H) 188 (H)BUN 7 - 18 mg/dL 4 (L) 6 (L)Creatinine 0.67 - 1.17 mg/dL 0.54 (L) 0.61 (L)Calcium 8.5 - 10.1 mg/dL 7.4 (L) 8.0 (L)Albumin 3.4 - 5.0 g/dL 1.8 (L)Phosphorus 2.5 - 4.9 mg/dL 2.4 (L)Anion Gap 8 - 16 10eGFR >60mL/min/1.73m2 >60GLUCOSE METER 70 - 99 mg/dL 205 (H)Component Latest Ref Rng AND Units 03/27/2018 03/27/2018 6:30 PM 6:30 PMSpecimen Type Pleural PleuralAppearance BloodyBody Fluid Color AmberRBC, Body Fluid 0 /cmm 18,400Nucleated Cells, Body Fluid 0 /cmm 167Segs, Body Fluid % 19Lymphs, Body Fluid % 53Monos, Body Fluid % 16Others, Body Fluid % 12Amylase, Body Fluid U/L 21Glucose, Body Fluid mg/dL 133LD,Body Fluid U/L 217pH, Body Fluid 7.680Protein, Body Fluid g/dl 1.7CXR: 03/29/2018persistent pleural effusion.Impression/Recommendatio ns1. Loculated left pleural effusion. Based on cell counts, looks more likehemothorax- Chest tube in place. CT surgery: tPA in the chest tube today.- CXR today: looks about the same.Fluid studies: amylase: 21. Glucose: 133. LD: 217. Protein: 1.7. PH:7.680.RBC: 53501. No serum LDH or Protein sent.Cultures, AFB, cytology pending.- urine strep Pnemo positive.- Will stop Ceftriaxone and doxycycline. Will start Unasyn today.. Patient received one dose of Piperacillin/Tazobactam Likely will gowith shorter course of therapy if no growth from pleural fluid since thislooks more likely hemothorax.- IVC filter in place.??2. Severe anemia, attributed to GI bleeding.- GI signed off. Will do capsule endoscopy if bleeding recurs.?3. History of testicular cancer, treated with resection and radiationtherapy. ??4. Diabetes mellitus.?5. Atrial fibrillation.- Amio stopped.SIGNATURE: Shruthi Carmichael MD PATIENT NAME: Joel MatsonDATE: March 29, 2018 : 8:30 AM PAGER/CONTACT #: [phone] saw and evaluated the patient. Discussed with the resident and agreewith resident's findings and plan as documented in the resident's note.Since no growth from culture and fluid cell counts look more likehemothorax, I think best to treat just for two weeks and will transitionto unasyn today (augmentin at discharge).SIGNATURE: John Hernandez III, MD PATIENT NAME: Joel MatsonDATE: March 29, 2018 : 11:37 AM PAGER/CONTACT #: [phone] [facility] PROGRESS HNO ID: [id number] thor: Janet Hudsonervice: Thoracic SurgeryAuthor Type: PhysicianType: Progress NotesFiled: 03/29/2018 10:09 AMNote Text:Thoracic Surgery Progress NoteSERVICE DATE: 03/29/2018SubjectiveSUBJECTIVE:JULIA ON, patient resting comfortably this morningDenies N/V/CP/SOBDiet: DIET CARBOHYDRATE CONTROLLEDObjectiveOBJECTIVE:Renetta ls:Temp (24hrs), Av.6 ?C (97.9 ?F), Min:36 ?C (96.8 ?F), Max:36.9 ?C(98.4 ?F)BP 128/61 Pulse 71 Temp 36.7 ?C (98.1 ?F) (Temporal Artery) Resp18 Ht 172.7 cm (5' 8 ) Wt 122 kg (268 lb 14.4 oz) SpO2 100% BMI 40.89 kg/m?O2 Therapy: Continuous Positive Airway PressureIANDO:Date 03/28/18 07 - 03/29/18 0659 03/29/18 07 - 03/30/18 0659Shift 6649-8093 5167-7553 1743-4601 24 Hour Total 0702-5185 [id number] 24 Hour TotalINTAKE PO 480 427 440 8483 PO 480 214 141 9216 IV 250 250 IVPB 250 250 Shift Total 480 670 360 1510OUTPUT Urine 277 4 2 283 Void (ml) 275 275 Urine Not Saved 2 4 2 8 Chest Tube 310 70 25 405 Chest Tube Output (Chest Tube 03/27/18 1828 Left Lateral Tube #1) 53024 25 405 # of BMs Number of BMs 1 x 1 x 2 x Shift Total 587 74 27 688Weight (kg) 125.9 125.9 122 122 122 122 122 122MEDICATIONSCurrent Facility-Administered Medications:pantoprazole DR 40 mg tab(s) (PROTONIX) 40 mg ORAL BID AC (0600/1600)insulin regular human injection (short acting) (NovoLIN R,HumuLIN R)SUBCUTANEOUS w MEALS AND HSoxyCODONE IR 5 mg tab(s) (ROXICODONE) 5 mg ORAL q 4 H PRNcefTRIAXone iv piggyback 2 g in dextrose (iso-osmotic) 50 mL (ROCEPHIN) 2g INTRAVENOUS q 24 Hdoxycycline 100 mg in D5W 250 mL (VIBRAMYCIN) 100 mg INTRAVENOUS q 12 Hdextrose 40 % 15 g 15 g ORAL PRNOrglucagon 1 mg injection (GLUCAGEN) 1 mg INTRAMUSCULAR PRNOrdextrose 50% in water 25 mL syringe 12.5 g INTRAVENOUS PRNprochlorperazine 5 mg injection (COMPAZINE) 5 mg INTRAVENOUS q 6 H PRNLabs:Recent Labs 03/28/1814NA 142 -- 141 -- 139K 3.6 -- 3.7 -- 3.6CHLOR 111* -- 112* -- 112*CO2 26 -- 23 -- 23BUN 6* -- 4* -- 7CREAT 0.61* -- 0.54* -- 0.43*GLUC 188* -- 121* -- 162*ANION -- -- 10 -- 8CA 8.0* -- 7.4* -- 7.3*P 2.4* -- -- -- --ALB 1.8* -- -- -- --WBC 3.38* -- 3.51* -- 4.35HB 7.8* 7.7* 7.3* < > 7.5*HCT 25.1* -- 23.1* -- 23.4*PLT 105* -- 75* -- 101*INR -- -- -- -- 1.00< > = values in this interval not displayed.Exam:GENERAL: No distress, AlertNEURO: AANDOx3, CN II-XII grossly intactHEENT: normocephalic, atraumaticLUNGS: Unlabored breathing O2 Therapy: Continuous Positive AirwayPressure, Left CT -20 sxn, serous output, no leakCARDIAC: Regular rate and rhythm as aboveABDOMEN: Soft, non-tender, non-distendedEXTREMITIES: FLORES, No deformities, No edemaSKIN: Skin color, texture, turgor normal, No rashes or lesionsASSESSMENT AND PLAN:Active Hospital Problems Diagnosis Date Noted- Obstructive sleep apnea 03/26/2018 Chronic- Diabetes ([facility]) 03/26/2018 Chronic- Nicotine use disorder, F17.2 03/25/2018- Obesity, Class III, BMI >= 40 03/25/2018- Malnutrition of moderate degree ([facility]) 03/25/2018- Anemia 03/24/2018- Atrial fibrillation with RVR ([facility]) 03/24/2018- Pulmonary embolism ([facility]) 03/24/2018- GI bleed 03/24/2018 Overview Note: Added automatically from request for surgery [id number] year old male with Left Parapneumonic Effusion s/p CT on 03/27, PE/DVTand DVT s/p EGD with PUD and Colonoscopy?- med mgmt per primary- cont Left CT to -20 sxn- daily CXR pending- tPA via chest tube today- Pleural Cx negative x1d- Cytology pending- Rocephin/Doxy per ID- Ambulate- IS- pain control?Assessment and plan discussed with attending: Dr. GuzmanATURE: Santos Wen MD PATIENT NAME: Joel MatsonDATE: March 29, 2018 : 6:03 AM Pager: [phone] seen and cxr reviewed. CXR some improvement at L base.P-diuresis, needs to move, and use spirometer. Cont chest tube onsuction. Normal [facility] Renal Panelon 03-29-2018 Creatinine 0.61 mg/dL Low 0.67-1.17 [facility] Comment on above: Performed By: #### R BCPS ####[facility] [place], [place] [address] Phosphate 2.4 mg/dL Low 2.5-4.9 [facility] Comment on above: Performed By: #### R BCPS ####[address] [address] Albumin 1.8 g/dL Low 3.4-5.0 [facility] Comment on above: Performed By: #### R BCPS ####[address] [address] CO2 26 mmol/L Normal 21-32 [facility] Comment on above: Performed By: #### R BCPS ####[facility] [place], [place] [address] Glucose mass conc 188 mg/dL High 70-99 [facility] Comment on above: Performed By: #### R BCPS ####[facility] [place], [place] [address] Urea nitrogen 6 mg/dL Low 7-18 [facility] Comment on above: Performed By: #### R BCPS ####[facility] [place], [place] [address] Calcium 8.0 mg/dL Low 8.5-10.1 [facility] Comment on above: Performed By: #### R BCPS ####[place] [address] Chloride 111 mmol/L High 98-107 [facility] Comment on above: Performed By: #### R BCPS ####[facility] [place], [place] [address] Potassium molar conc 3.6 mmol/L Normal 3.5-5.1 [facility] Comment on above: Performed By: #### R BCPS ####[facility] [place], [place] [address] Sodium 142 mmol/L Normal 136-145 [facility] Comment on above: Performed By: #### R BCPS ####[facility] [place], [place] [address] THERAPY NTon 03-29-2018 THERAPY NT HNO ID: [id number] thor: Trinh (Otr/L) KincaidService: Occupational TherapyAuthor Type: Occupational TherapistType: Therapy (PT/OT/Speech/Resp)Filed: 03/29/2018 11:54 AMNote Text:Occupational Therapy EvaluationSERVICE DATE: 03/29/2018SERVICE TIME: 1130 to 1144ROOM: [id number] Discharge Disposition: HomeAnticipated Discharge Needs: Physical Assist at HomePhysical Assist at Home for: Shopping;TransportationOT Recommendations to Nursing: To Bathroom for ADL?s /and or Toileting;OOBfor meals;With assist of 1 personOT 6 Clicks Score: 22Precaution/Activity Restriction Comments: L chest tubeIsolation Type: NoneASSESSMENT:OT Evaluation Low Complexity:Occupational Profile - Brief review of patient's medical record completed(please see current hospital course of evaluation).Occupational Performance - Pt presents with deficits in feeding, grooming,UE bathing/dressing, LE bathing/dressing, functional transfers, functionalmobility, decreased safety awareness, decreased insight into deficitsComplexity in Clinical Decision Making - The extent of clinical reasoningwas low, number of treatment options limited, no need for modificationsduring the evaluation process, no comorbidities present to affectpatient's occupational performance.Patient Disposition at Start of Session: OOB in ChairPatient Disposition at End of Session: OOB in Chair;Call Malik in ReachTolerated Full SessionOccupational Therapy Problem List: Impaired Self CarePatient /Caregiver Goals: Go HomeGoals for Plan of Care:Lower Body Bathing with: IndependentLower Body Dressing with: IndependentToilet Transfer with: IndependentTub Transfer with: IndependentRehab Potential: GoodPLAN:Treatment Frequency (times per week): 5 (1-5) Current admissionTreatment Interventions: Education;Self Care / Home Management;EnergyConservation TrainingPlan of Care developed with: PatientTREATMENT INTERVENTIONS:Therapy Diagnosis: Decreased activities of daily living (ADL)Interventions Provided: Evaluation;Self Correction Management (85248)$ Evaluation-Low (08733) Billed Units: 1 unitSelf Correction Management (36330) Treatment Minutes: 30 unitsSkilled Intervention(s): . Pt educated on energy conservation techniquesto help decrease fatigue during ADLs and IADL upon d/c, provided handout.Total Timed Code Treatment Minutes: 3Total Treatment Time (minutes): 14FUNCTIONAL G CODE:OT 6 Clicks Score: 22 (03/29/18 1130) Self Care Current Status (G8987): CJ (03/29/18 1130)Self Care Goal Status (G8988): CH (03/29/18 1130)Based on clinical assessment and the score on the 6 Clicks FunctionalAssessment Tool, the G code and corresponding severity modifiers aredocumented above.SUBJECTIVE:Current Hospital Course: Chart reviewed; . Patient had LLL PNA 2 wks agotreated as outpatient with 7 days abx. Sidney better then 6 days ago becameincreasingly SOBAcute blood loss and Pulmonary embolisms/p left chest tubeReason for Occupational Therapy Consult: safety assessmentRelevant Past Medical History: testicular cancerPatient Report: found up in chair, agreeable to therapy, reports 5/10 painat chest tube site. My can help if I need something. Home EnvironmentPatient Lives With: Significant Other ( and son )Assistance Available: 24 Hour (family works opposite shifts)Number Of Stairs To Bed/Bath: flightStairs to Bed/Bath with: Unilateral RailPrior Functional Level: Within Functional Limits (He was able to work anddo yard work)OBJECTIVE: Responsiveness: AlertFollows Commands: 3-step Commands Vision Deficits: Wears glassesCURRENT FUNCTIONAL STATUS:Current Activities of Daily Living Assist LevelFeeding Set UpGrooming Stand By AssistanceBathing Upper Body Stand By AssistanceBathing Lower Body Minimal AssistanceDressing Upper Body Stand By AssistanceDressing Lower Body Minimal AssistanceToileting Stand By AssistanceFunctional Mobility Assist LevelRollingSupine to SitSit to SupineScootingSit to Stand Stand By AssistanceStand to Sit Stand By AssistanceBed to ChairToilet/Commode Stand By AssistanceFunctional Mobility Stand By AssistanceRange Of Motion: Within Functional LimitsStrength: Within Functional LimitsBalance: Static Standing;Dynamic StandingStatic Standing Balance: Stand By AssistanceDynamic Standing Balance: Stand By AssistancePlease see discipline specific clinical documentation flowsheet forcomplete details for this therapy evaluation/treatment.SIGNATURE: Trinh Maynard OTR/L PATIENT NAME: Joel HallerDATE: March 29, 2018 : 11:50 AM PAGER: [phone] Normal [facility] THERAPY NT HNO ID: [id number] thor: Holli (Pt) JohnsonService: Physical TherapyAuthor Type: Physical TherapistType: Therapy (PT/OT/Speech/Resp)Filed: 03/29/2018 10:28 AMNote Text:Physical Therapy EvaluationSERVICE DATE: 03/29/2018SERVICE TIME: 839 to 917ROOM: [id number] Discharge Disposition: HomePT Recommendations to Nursing: Ambulate without device;To bathroom;Inhalls;OOB for Meals;With assist of 1 personPT 6 Clicks Score: 21Precaution/Activity Restriction Comments: Left chest tubeIsolation Type: NoneASSESSMENT :Patient presents with a left chest tube and is having pain with moving atinsertion site. His course is complicated by DM, where is blood sugarlevels at baseline have led to passing out and falling. He is able tomove with encouragement and assistance. At this time patient will likelybe moving well enough to go home at discharge.Patient Disposition at Start of Session: Supine in BedPatient Disposition at End of Session: OOB in ChairTolerated Full SessionPhysical Therapy Problem List: Education Deficit;Functional MobilityImpairmentPatient /Caregiver Goals: Go HomeGoals for Plan of Care:Rolling with: IndependentTransfer supine to/from sit with: IndependentTransfer sit to/from stand with: IndependentAmbulate with: IndependentDistance: 50Ambulate up and down steps with: IndependentNumber of steps: 10Device: RailRehab Potential: ExcellentPLAN:Treatment Frequency (times per week): 5 (2-5) Current admissionTreatment Interventions: Education;Functional Mobility TrainingPlan of Care developed with: PatientTREATMENT INTERVENTIONS:Therapy Diagnosis: General symptoms and signs-otherInterventions Provided: Evaluation;Therapeutic Activity (11901)$ Evaluation-Moderate (07823) Billed Units: 1 unitTherapeutic Activity (35812) Treatment Minutes: 232 unitsSkilled Intervention(s): Education with the importance of getting up outof bed and walking with staff to work on his endurance and improve lunghealth. He was educated on proper elevation of his left arm to reduceswelling, and hand squeezes to promote circulation. Walked in the hallwaywith instruction on dep breathing and looking up Rather than the floor,he did not need any safety instruction or interventions with his gaitpattern. Education on pacing himself with gait and increasing his gaitdistance and frequency with assistance, not moving by himself yet.Answered patients questions.Total Timed Code Treatment Minutes: 23Total Treatment Time (minutes): 38FUNCTIONAL G CODE:PT 6 Clicks Score: 21 (03/29/18 0840)Mobility: Walking and Moving Around Current Status (G8978): CJ (0)Mobility: Walking and Moving Around Goal Status (G8979): CI (0)Based on clinical assessment and the score on the 6 Clicks FunctionalAssessment Tool, the G code and corresponding severity modifiers aredocumented above.SUBJECTIVE:Current Hospital Course: Chart reviewed; 52 yo with testicular cancer,post chemoradiation. Has had a couch for 2-3 weeks, went to ED after anear syncopal event, 03/25 had EGD (3 small ulcers) 03/24 IVC placed, 03/27colonoscopy (blood likely from upper GI tract 03/26 chest tube insertion.Reason for Physical Therapy Consult : EvalRelevant Past Medical History: DM, pnuemonia, low HgbPatient Report: Patient reports that he has no pain when he is still butdoes have pain when he is transferring. He is afraid of causing pain withwalking.Home EnvironmentPatient Lives With: Significant Other ( and son )Assistance Available: 24 Hour (family works opposite shifts)Number Of Stairs To Bed/Bath: flightStairs to Bed/Bath with: Unilateral RailPrior Functional Level: Within Functional Limits (He was able to work anddo yard work)OBJECTIVE:CURRENT FUNCTIONAL STATUS:Current Functional Mobility Assist Level Additional InformationRollingSupine to SitSit to SupineScootingSit to Stand Stand By AssistanceStand to Sit Stand By AssistanceBed to ChairToilet/CommodeGait Stand By Assistance Gait Device: Other: See Comment (occassionallyusing hand rail) Gait Distance (feet): 120 x 2StairsCurb StepCar TransferGeneral Gait Deviations: Viviane decreased Lateral sway due to bodyhabitus rather than balance disturbance.Please see discipline specific clinical documentation flowsheet forcomplete details for this therapy evaluation/treatment.SIGNATURE: Holli Ziegler PT PATIENT NAME: Joel JenningsTE: March 29, 2018 : 10:11 AM PAGER/CONTACT #: [phone] Normal [facility] ALLIED HEALTHon 03-28-2018 ALLIED HEALTH HNO ID: [id number] thor: Elina Yang Office CoordService: (none)Author Type: (none)Type: Allied HealthFiled: 03/28/2018 3:23 PMNote Text:PENSIONS RETIREMENT PLAN SPECIALIST NOTESERVICE DATE: 03/28/2018SERVICE TIME: 3:22 PMReferral:Home Care referral received by: Crissy to verify Infusion benefitsWill continue to follow for physician ordersSIGNATURE: Elina Yang Office Coord PATIENT NAME: Joel JenningsTE: March 28, 2018 : 3:22 PM Normal [facility] BF Cell Count/Diffon 018 BF/Monos 16 % Normal [facility] Comment on above: Performed By: #### T &S ####[address] [address] BF/Others 12 % Normal [facility] Comment on above: Performed By: #### T &S ####[address] [address] BF/Segs 19 % Normal [facility] Comment on above: Performed By: #### T &S ####[address] [address] Lymphocytes/100 leukocytes 53 % Normal [facility] Comment on above: Performed By: #### T &S ####[facility] [place], [place] [address] Basic Panelon 03-28-2018 Creatinine 0.54 mg/dL Low 0.67-1.17 [facility] Comment on above: Performed By: #### P 8 ####[facility] [place], [place] [address] Glucose mass conc 121 mg/dL High 70-99 [facility] Comment on above: Performed By: #### P 8 ####[facility] [place], [place] [address] Urea nitrogen 4 mg/dL Low 7-18 [facility] Comment on above: Performed By: #### P 8 ####[address] [address] Anion gap 10 mmol/L Normal 8-16 [facility] Comment on above: Performed By: #### P 8 ####[address] [address] Calcium 7.4 mg/dL Low 8.5-10.1 [facility] Comment on above: Performed By: #### P 8 ####[address] [address] CO2 23 mmol/L Normal 21-32 [facility] Comment on above: Performed By: #### P 8 ####[address] [address] Chloride 112 mmol/L High 98-107 [facility] Comment on above: Performed By: #### P 8 ####[address] [address] Potassium molar conc 3.7 mmol/L Normal 3.5-5.1 [facility] Comment on above: Performed By: #### P 8 ####[address] [address] Sodium 141 mmol/L Normal 136-145 [facility] Comment on above: Performed By: #### P 8 ####[address] [address] CHEST 1 VIEWon 03-28-2018 CHEST 1 VIEW Performed at [facility] APPROVED BY: Jordin Ramirez MD PORTABLE FRONTAL [...] lung base. Right infrahilar opacity, possible atelectasis. Normal [facility] CONSULT PROGon 03-28-2018 CONSULT PROG HNO ID: [id number] thor: Monica ([employer]oples[employer] Analyst) JulianService: GastroenterologyAuthor Type: Nurse SpecialistType: Consult Progress NoteFiled: 03/28/2018 3:00 PMNote Text:GI CONSULT PROGRESS NOTESERVICE DATE: 03/28/2018SERVICE TIME: 2:52 PMCONSULTING SERVICE: GastroenterologySubjectiveINTERVA L HISTORY: Denies GI symptoms. Hgb stable. No overt signs of GIBleedingMEDICATIONS:Current hospital medications:pantoprazole DR 40 mg tab(s) (PROTONIX) 40 mg ORAL BID AC (0600/1600)insulin regular human injection (short acting) (NovoLIN R,HumuLIN R)SUBCUTANEOUS w MEALS AND HSoxyCODONE IR 5 mg tab(s) (ROXICODONE) 5 mg ORAL q 4 H PRNcefTRIAXone iv piggyback 2 g in dextrose (iso-osmotic) 50 mL (ROCEPHIN) 2g INTRAVENOUS q 24 Hdoxycycline 100 mg in D5W 250 mL (VIBRAMYCIN) 100 mg INTRAVENOUS q 12 Hdextrose 40 % 15 g 15 g ORAL PRNglucagon 1 mg injection (GLUCAGEN) 1 mg INTRAMUSCULAR PRNdextrose 50% in water 25 mL syringe 12.5 g INTRAVENOUS PRNprochlorperazine 5 mg injection (COMPAZINE) 5 mg INTRAVENOUS q 6 H PRNObjectivePHYSICAL EXAM:VITALS:BP 142/61 Pulse 79 Temp 36.7 ?C (98.1 ?F) (Oral) Resp 20 Ht 172.7 cm (5' 8 ) Wt 125.9 kg (277 lb 8 oz) SpO2 96% BMI42.19 kg/m?ABDOMEN: Soft, nondistended, nontender, bowel sounds present. No guarding,rebound or rigidity.GENERAL: Alert and oriented.DATA:Diagnostic tests reviewed for today's visit:Most recent labs and imaging results.CBC, Coags, BMP, Mg, PhosRecent Labs 03/28/18038 150 WBC -- 3.51* -- 4.35 -- 6.14HB 7.7* 7.3* 7.1* 7.5* < > 7.5*HCT -- 23.1* -- 23.4* -- 23.0*PLT -- 75* -- 101* -- 107*INR -- -- -- 1.00 -- --NA -- 141 -- 139 -- 139K -- 3.7 -- 3.6 -- 3.2*CHLOR -- 112* -- 112* -- 108*CO2 -- 23 -- 23 -- 27BUN -- 4* -- 7 -- 13CREAT -- 0.54* -- 0.43* -- 0.53*GLUC -- 121* -- 162* -- 189*CA -- 7.4* -- 7.3* -- 7.0*< > = values in this interval not displayed.Colonoscopy (03/27) - diverticulosis with tarry stool in cecum. Normal TIEGD (03/25) - 3 small gastric ulcers. Surgical pathology showed minimalchronic gastritis.Impression/Recommendati onsAnemia - acute normocytic. Hgb stable-Monitor Hgb/Hct - transfuse as needed- Monitor BMs for bleeding- Consider capsule endoscopy for further GI bleeding???Atrial fibrillation with RVR - rate controlled - managed per primary team???Pulmonary embolism- acute. s/p IVC filter placement- monitor?Diet as toleratedWould need capsule endoscopy for further bleeding?GI will sign offCall with questionsSIGNATURE: Monica Abel APRN.SQL SERVER DBA PATIENT NAME: Joel JenningsTE: March 28, 2018 : 2:52 PM PAGER/CONTACT #: [phone] Normal [facility] Cold Agglutininson 8 Cold Agglutinins SEE BELOW Normal [facility] Comment on above: Result Comment: Cold , 4 Degrees C <1:32 Dilutions Reference Range: <1:32Cold, 37 Degrees C SEE BELOW DilutionsTest not indicated when titer is <1:32 at 4 degrees C.Performing Laboratory:[facility] [id number] [place] [id number] Performed By: #### C OLDX ####[address] [address] Glucose Meteron 03-28-2018 Glucose mass conc 269 mg/dL High 70-[address] [place] [address] Comment on above: Result Comment: RN N OTIFIED Performed By: #### R BCPS ####[address] [address] Glucose mass conc 249 mg/dL High 70-99 [facility] Comment on above: Result Comment: RN N OTIFIED Performed By: #### R BCPS ####[address] [address] Glucose mass conc 219 mg/dL High 70-[address] [place] [address] Comment on above: Result Comment: RN Jessika OTIFIED Performed By: #### G LMET ####[address] [address] Glucose mass conc 151 mg/dL High 70-99 [facility] Comment on above: Result Comment: RN N OTIFIED Performed By: #### G LMET ####[address] [address] Glucose mass conc 139 mg/dL High 70-99 [facility] Comment on above: Performed By: #### G LMET ####[address] [address] Hemogramon 03-28-2018 Erythrocyte distribution width Auto Ratio (RBC) 20.7 % High 11.6-14.4 [facility] Comment on above: Performed By: #### C BC1 ####[facility] [place] [address] Erythrocytes (RBC) 2.51 mil/cmm Low 4.63-6.08 [facility] Comment on above: Performed By: #### C BC1 ####[place] [address] Hematocrit (HCT) 23.1 % Low 40.1-51.0 [facility] Comment on above: Performed By: #### C BC1 ####[place] [address] Hemoglobin mass conc (Bld) 7.3 g/dL Low 13.7-17.5 [facility] Comment on above: Performed By: #### C BC1 ####[place] [address] MCH 29.1 pg Normal 25.7-32.2 [facility] Comment on above: Performed By: #### C BC1 ####[place] [address] MCHC mass conc (RBC) 31.6 % Low 32.3-36.5 [facility] Comment on above: Performed By: #### C BC1 ####[place] [address] MCV 92.0 fL Normal 83.2-95.6 [facility] Comment on above: Performed By: #### C BC1 ####[place] [address] Platelet mean volume (PMV) 10.2 fL Normal 8.7-12.0 [facility] Comment on above: Performed By: #### C BC1 ####[place] [address] Platelets 75 thou/cmm Low 141-365 [facility] Comment on above: Result Comment: ea r scanned tech agrees with platelet count Performed By: #### C BC1 ####[place] [address] RDW SD 62.0 fl High 36.1-45.8 [facility] Comment on above: Performed By: #### C BC1 ####[facility] [place], [place] [address] WBC (Leukocytes) 3.51 thou/cmm Low 4.23-9.07 [facility] Comment on above: Performed By: #### C BC1 ####[facility] [place], [place] [address] Hgbon 03-28-2018 Hemoglobin mass conc (Bld) 7.7 g/dL Low 13.7-17.5 [facility] Comment on above: Performed By: #### R BCPS ####[address] [address] MDRD GFRon 03-28-2018 eGFR (non-black) mL/min/{1.73_m2} Normal >60mL/m in/ 1.73m2 [facility] Comment on above: Result Comment: If t he patient is , multiply the result by 1.210. Performed By: #### G FR ####[address] [address] NURSING PROGon 03-28-2018 NURSING PROG HNO ID: [id number] thor: Ritu (Rn) JUAN RAMON Henleyervice: NursingAuthor Type: Registered NurseType: Nursing Progress NoteFiled: 03/28/2018 11:44 AMNote Text:After sitting up in chair for 2 hours, pt became lightheaded, dizzy,diaphoretic, with tunnel vision. Pt placed back in bed, blood sugar 219,VS stable ( T36.7, P79, 142/61, 96%RA). No active bleeding noted thismorning. PT states he started feeling better after getting back in bed.Dr. East notified of symptoms. Will continue to monitor. Normal [facility] Otheron 03-28-2018 CONVERTED CLINICAL HISTORY OPERATIVE PROCEDURE: EGD CLINICAL INFORMATION: GI bleed/anemia [facility] CONVERTED ELECTRONIC SIGNATURE HERMINIO CORNEJO M.D., PATHOLOGIST (Electronic signature on file) Final Signed Out: 03/28/2018 14:07 [facility] CONVERTED FINAL DIAGNOSIS FINAL DIAGNOSIS: STOMACH, ANTRUM, BIOPSY - MINIMAL CHRONIC GASTRITIS. IMMUNOHISTOCHEMICAL STAIN FOR HELICOBACTER PYLORI IS NEGATIVE FOR ORGANISMS. [facility] CONVERTED GROSS DESCRIPTION GROSS DESCRIPTION: Antrum biopsy Received in formalin labeled antral biopsy are two cheng soft tissues aggregating to 0.6 x 0.3 x 0.2 cm, which are totally submitted in one cassette. Levels x 3, plus H. pylori. BMP:[facility] CONVERTED ORDERING PROVIDER Ordering Provider: DAVID CERRATO [facility] PROGRESSon 03-28-2018 PROGRESS HNO ID: [id number] thor: John Hernandez IIIService: Infectious DiseaseAuthor Type: PhysicianType: Progress NotesFiled: 03/28/2018 12:16 PMNote Text:INFECTIOUS DISEASE CONSULT PROGRESS NOTESERVICE DATE: 03/28/2018SERVICE TIME: 9:53 AMAttending additions in blue.CONSULTING SERVICE: Internal MedicineThe patient is a 52-year-old man with past medical history of DM, ANDREW,history of testicular caner. Was transferred ?from [facility] for severe anemia, severe dyspnea and A fib withRapid Ventricular Rate. Patient was found to have a?loculated left pleuraleffusion with left lower lobe infiltrate and left lower ?lobe pulmonaryembolism. Due to to very low HB and suspected GI bleed patient could notbe anticoagulated. IVC filter was placed yesterday by vascular. Patientgot an EGD which showed 3 gastric ulcer but unlikely the source ofbleeding.Was initially on Piperacillin/Tazobactam and now on Ceftriaxone anddoxycycline.Urine Strep Pnemo was positive. Patient had a colonoscopy yesterday, tarrystool in the cecum, chest tube was also placed yesterday by CT thoracicsurgery.??Patient had just become very lightheaded when we entered room. We helpedhim from a chair back to the bed and he felt much better with lying flat.Has some pain in left chest from his chest tube. No current cough. Nofevers or chills.He is not having nausea or diarrhea or rash with the antibiotics.SubjectiveINTERVAL HISTORY OF PRESENT ILLNESS:Patient feeling better. Does complain of pain. Breathing is better thanyesterday. No fever overnight. Patient ambulating well.Current Facility-Administered Medications:pantoprazole DR 40 mg tab(s) (PROTONIX) 40 mg ORAL BID AC (0600/1600)insulin regular human injection (short acting) (NovoLIN R,HumuLIN R)SUBCUTANEOUS w MEALS AND HSoxyCODONE IR 5 mg tab(s) (ROXICODONE) 5 mg ORAL q 4 H PRNcefTRIAXone iv piggyback 2 g in dextrose (iso-osmotic) 50 mL (ROCEPHIN) 2g INTRAVENOUS q 24 Hdoxycycline 100 mg in D5W 250 mL (VIBRAMYCIN) 100 mg INTRAVENOUS q 12 Hdextrose 40 % 15 g 15 g ORAL PRNOrglucagon 1 mg injection (GLUCAGEN) 1 mg INTRAMUSCULAR PRNOrdextrose 50% in water 25 mL syringe 12.5 g INTRAVENOUS PRNprochlorperazine 5 mg injection (COMPAZINE) 5 mg INTRAVENOUS q 6 H PRNObjectivePHYSICAL EXAM:Patient Vitals for the past 24 hrs: BP Temp Temp src Pulse Resp SpO2 Obkbcj73/22/18 0700 115/58 36.5 ?C (97.7 ?F) - 75 20 98 % -03/28/18 0600 - - - - - - 125.9 kg (277 lb 8 oz)03/28/18 0020 136/68 36.5 ?C (97.7 ?F) Oral 75 22 100 % -03/27/18 2300 125/68 36.3 ?C (97.3 ?F) - 69 16 95 % -03/27/18 2200 112/67 - - 67 15 95 % -03/27/18 2118 118/70 - - 78 13 100 % -03/27/18 2000 122/69 36.3 ?C (97.3 ?F) Axillary 78 19 100 % -03/27/18 1900 113/52 - - 67 17 100 % -03/27/18 1800 122/81 - - 73 14 100 % -03/27/18 1700 123/65 - - 67 15 100 % -03/27/18 1600 117/70 36.3 ?C (97.3 ?F) - 78 14 98 % -03/27/18 1500 122/73 - - 77 18 100 % -03/27/18 1400 117/65 - - 73 16 98 % -03/27/18 1300 118/56 - - 71 16 97 % -03/27/18 1200 111/64 36.2 ?C (97.2 ?F) - 68 14 97 % -03/27/18 1100 120/57 - - 74 21 98 % -03/27/18 1000 117/62 - - 71 16 99 % -Body mass index is 42.19 kg/m?.GENERAL: Alert, no distress, cooperativeSKIN: Skin color, texture, turgor normal. No rashes or lesions.OROPHARYNX: Lips, mucosa, and tongue are normal.Teeth and gums, normal.Oropharynx normal.NECK: No jugulovenous distention, No carotid bruits, Carotid pulse normalcontour, SuppleLUNGS: decreased breath sounds onCARDIAC: Normal S1 and S2; no rubs, murmurs, or gallopsABDOMEN: Abdomen soft, non-tender, BS normal, No masses or organomegalyEXTREMITIES: 2+ pitting edema present.NEURO: Alert, oriented X 3, Gait normal. Non-focal. Reflexes normal andsymmetric. Sensation grossly intact., Cranial nerves II-XII intactPULSES: 2+ radial, 2+ carotidDATA:Diagnostic tests reviewed for today's visit:Component Latest Ref Rng AND Units 03/27/2018 03/27/2018 03/28/2018 1:50 AM 2:20 PMWBC 4.23 - 9.07 thou/cmm 4.35 3.51 (L)RBC 4.63 - 6.08 mil/cmm 2.54 (L) 2.51 (L)HGB 13.7 - 17.5 g/dL 7.5 (L) 7.1 (L) 7.3 (L)Hematocrit 40.1 - 51.0 % 23.4 (L) 23.1 (L)MCV 83.2 - 95.6 fl 92.1 92.0MCH 25.7 - 32.2 pg 29.5 29.1MCHC 32.3 - 36.5 % 32.1 (L) 31.6 (L)RDW 11.6 - 14.4 % 20.0 (H) 20.7 (H)RDW-SD 36.1 - 45.8 fl 51.3 (H) 62.0 (H)Platelet Count 141 - 365 thou/cmm 101 (L) 75 (L)MPV 8.7 - 12.0 fl 9.6 10.2Nucleated RBC % 0.0 - 0.2 % 0.5 (H)Nucleated RBC Absolute 0.00 - 0.01 thou/cmm 0.02 (H)Sodium 136 - 145 mEq/L 139 141Potassium 3.5 - 5.1 mEq/L 3.6 3.7Chloride 98 - 107 mEq/L 112 (H) 112 (H)CO2 21 - 32 mEq/L 23 23Glucose 70 - 99 mg/dL 162 (H) 121 (H)BUN 7 - 18 mg/dL 7 4 (L)Creatinine 0.67 - 1.17 mg/dL 0.43 (L) 0.54 (L)Calcium 8.5 - 10.1 mg/dL 7.3 (L) 7.4 (L)Anion Gap 8 - 16 8 10GLUCOSE METER 70 - 99 mg/dL 151 (H)Component Latest Ref Rng AND Units 03/27/2018 03/27/2018 6:30 PM 6:30 PMSpecimen Type Pleural PleuralAppearance BloodyBody Fluid Color AmberRBC, Body Fluid 0 /cmm 18,400Nucleated Cells, Body Fluid 0 /cmm 167Segs, Body Fluid % 19Lymphs, Body Fluid % 53Monos, Body Fluid % 16Others, Body Fluid % 12Amylase, Body Fluid U/L 21Glucose, Body Fluid mg/dL 133LD,Body Fluid U/L 217pH, Body Fluid 7.680Protein, Body Fluid g/dl 1.7CXR: 03/28Unaltered position of left thoracostomy tube with diminished lung volumeon theleft and persistent abnormal pleuroparenchymal opacity at the lung base.Right infrahilar opacity, possible atelectasis.Impression/Recommenda tionsActive Problems:1. Loculated left pleural effusion. Based on cell counts, looks more likehemothorax- Chest tube placed yesterday.- CXR today: looks about the same. May be slight increase in effusioncompared to yesterday.Fluid studies: amylase: 21. Glucose: 133. LD: 217. Protein: 1.7. PH:7.680.RBC: 48001. No serum LDH or Protein sent.Cultures, AFB, cytology pending.- urine strep Pnemo positive.- Continue with Ceftriaxone and doxycycline. Will need 4-6 weeks. Patientreceived one dose of Piperacillin/Tazobactam Likely will go with shortercourse of therapy if no growth from pleural fluid since this looks morelikely hemothorax.- IVC filter in place.?2. Severe anemia, attributed to GI bleeding.- GI following?3. History of testicular cancer, treated with resection and radiationtherapy. ??4. Diabetes mellitus.?5. Atrial fibrillation.- Amio stopped.SIGNATURE: Shruthi Carmichael MD PATIENT NAME: Joel MatsonDATE: March 28, 2018 : 9:53 AM PAGER/CONTACT #: [phone] saw and evaluated the patient. Discussed with the resident and agreewith resident's findings and plan as documented in the resident's notewith above changes.Continue doxycycline and ceftriaxone for pneumococcal pneumonia. Pleuralfluid studies look to be consistent with hemothorax rather than empyema.Likely will give shorter course of therapy for the pneumococcal pneumoniawith this in mind- if empyema was planning for 4-6 weeks of therapy.SIGNATURE: John Hernandez III, MD PATIENT NAME: Joel MatsonDATE: March 28, 2018 : 12:16 PM PAGER/CONTACT #: [phone] [facility] PROGRESS HNO ID: [id number] thor: Kym Liu: Hospital MedicineAuthor Type: PhysicianType: Progress NotesFiled: 03/28/2018 9:36 AMNote Text:Subjective - [facility] from [facility] 03/[facility]. Chart reviewedbelow.PAST MEDICAL HISTORYDiagnosis Date- Testicular cancer (HCC) 2003Per review of home meds, was on diclofenacPer transfer note - 'Patient is a 52 y/o CM w/ a h/o testicular cancer s/pchemoradiation, DM type 2, ANDREW on CPAP who presented to [place] ED on03/24/18 for the complaint of 2-3 weeks of worsening productive cough andleft-sided chest pain after initial improvement with antibiotic treatmentby his PCP. He went to ED after a near-syncopal event with associatedbladder/bowel incontinence. At [facility] ED, found to have Hb 4.5normocytic. CT chest showed moderate left loculated pleural effusion, leftbasilar atelectasis vs consolidation, and LLL PE. Also found to be inAfib, started on amio gtt (which was stopped 03/25). [facility] treatment of acute hypoxic resp failure 2/2 pneumoniavs. PE, new-onset A-fib, and severe acute anemia likely due to blood loss.Patient received a total of 4 units pRBC since arrival, maintaining Hb ?~7.5. ID followed and started Rocephin and doxy for suspected pneumonia.03/25: EGD showed 3 small ulcers that were initially unlikely source ofblood loss. No intervention needed. Planned for colonoscopy. 03/26:Vascular placed IVC filter (note, no thrombus seen on 03/24 US of BLE).03/27: Per GI, colonoscopy revealed melena in the cecum, likely bloodoriginating from upper GI tract, and one polyp and diverticula. No signsof active bleeding noted. GI said if further bleeding, will need capsuleendoscopy. Please see operative report once released. Planned forthoracostomy per CT surgery the same day, with plan to check fluidstudies. Patient is being monitored with q12h hemoglobin checks. Hb hasbeen stable at 7.1 to 7.5'Per CTS today -'52 year old male with Left Parapneumonic Effusion s/p CT on 03/27, PE/DVTand DVT s/p EGD with PUD and Colonoscopy- med mgmt per primary- cont Left CT to -20 sxn- daily CXR pending- Pleural Cx and Cytology pending- Rocephin/Doxy per ID- Ambulate- IS- pain control'Per ID on 03/27 -'1. Loculated left pleural effusion. Likely secondary to LLL Pneumoniasecondary left lower Pulmonary Embolism.- Patient to get Chest tube placed today. Send for pleural studies.- urine strep Pnemo positive.- Continue with Ceftriaxone and doxycycline. Patient received one dose ofPiperacillin/Tazobactam- IVC filter in place.'Per trauma on 03/27 - left chest tube placed at bedsideLong discussion with pt and his son at bedside, pt is anxious to get upand out of bed, 'I know I will feel better', says his treatment fortesticular cancer was 'years ago, I just follow up yearly'. Has pain fromchest tube, but says breathing is much better. Was originally from [place].Appetite good, no nausea or vomiting, has some edema in hands, 'theypumped me full of fluids'.Objective - 03/28/1800700BP: 125/68 136/68 115/58Pulse: 69 75 75Resp: 20Temp: 36.3 ?C (97.3 ?F) 36.5 ?C (97.7 ?F) 36.5 ?C (97.7 ?F)TempSrc: OralSpO2: 95% 100% 98%Weight: 125.9 kg (277 lb 8 oz)Height:Results for JOEL MATSON ( ) as of 03/28/2018 09:10 Ref. Range 03/27/2018 23:46 03/28/2018 03:18 03/28/2018 06:43 03/28/201807:20Sodium Latest Ref Range: 136 - 145 mEq/L 141Potassium Latest Ref Range: 3.5 - 5.1 mEq/L 3.7Chloride Latest Ref Range: 98 - 107 mEq/L 112 (H)CO2 Latest Ref Range: 21 - 32 mEq/L 23BUN Latest Ref Range: 7 - 18 mg/dL 4 (L)Creatinine Latest Ref Range: 0.67 - 1.17 mg/dL 0.54 (L)Glucose Latest Ref Range: 70 - 99 mg/dL 121 (H)Calcium Latest Ref Range: 8.5 - 10.1 mg/dL 7.4 (L)Anion Gap Latest Ref Range: 8 - 16 10eGFR Latest Ref Range: >60mL/min/1.73m2 >60Hematocrit Latest Ref Range: 40.1 - 51.0 % 23.1 (L)WBC Latest Ref Range: 4.23 - 9.07 thou/cmm 3.51 (L)RBC Latest Ref Range: 4.63 - 6.08 mil/cmm 2.51 (L)HGB Latest Ref Range: 13.7 - 17.5 g/dL 7.3 (L)Platelet Count Latest Ref Range: 141 - 365 thou/cmm 75 (L)MCV Latest Ref Range: 83.2 - 95.6 fl 92.0MCH Latest Ref Range: 25.7 - 32.2 pg 29.1MCHC Latest Ref Range: 32.3 - 36.5 % 31.6 (L)MPV Latest Ref Range: 8.7 - 12.0 fl 10.2RDW-SD Latest Ref Range: 36.1 - 45.8 fl 62.0 (H)RDW Latest Ref Range: 11.6 - 14.4 % 20.7 (H)XR CHEST 1V FRONTAL Unknown RptGLUCOSE METER Latest Ref Range: 70 - 99 mg/dL 139 (H) 151 (H)GEN - morbidly obese 52 yo wm reclining in bed, talks w/o SOB, son atbedsideHEENT - PERR, some teeth missing, mouth moistCARD - sounds RRRPULM - clear anterior, left chest tube with some serous drainageABD - soft, nontenderEXT - SCDs on, edema of hands, little LENEURO - no focal deficitsAssessment/plan -1) CAP/parapneumonic effusion/ANDREW - as per CTS and ID, pt feels muchbetter, is now on room air, studies pending2) Acute blood loss anemia/EGD on 03/25 showed 3 ulcers, colonoscopy on03/27 was normal - stable, of note, pt was diclofenac per home med list3) Afib - was likely due to acute blood loss anemia, appears in NSR now,no anticoag due to #24) hx of Testicular cancer - does not appear active by history, path andcytology pending on pleural fluid5) DM -stable6) Acute on chronic debility - PT and OT evals, up out of bed7) GI and DVT prophylaxis - PPI, had IVC filter placed on 03/26 while inICU8) Disposition - as above, will follow, appreciate ID and CTS for thisvery special pt Normal [facility] PROGRESS HNO ID: [id number] thor: Janet Hudsonervice: Thoracic SurgeryAuthor Type: PhysicianType: Progress NotesFiled: 03/28/2018 5:37 PMNote Text:Thoracic Surgery Progress NoteSERVICE DATE: 03/28/2018SubjectiveSUBJECTIVE:JULIA ON, left chest discomfort from tubeDenies N/V/CP/SOBDiet: DIET CARBOHYDRATE CONTROLLEDObjectiveOBJECTIVE:Renetta ls:Temp (24hrs), Av.3 ?C (97.4 ?F), Min:36.2 ?C (97.2 ?F), Max:36.5 ?C(97.7 ?F)BP 136/68 Pulse 75 Temp 36.5 ?C (97.7 ?F) (Oral) Resp 22 Ht172.7 cm (5' 8 ) Wt 127.8 kg (281 lb 12 oz) SpO2 100% BMI 42.84kg/m?O2 Therapy: Continuous Positive Airway PressureIANDO:Date 03/27/18 07 - 03/28/18 0659 03/28/18 07 - 03/29/18 0659Shift 9841-5213 6883-6374 5189-4794 24 Hour Total 4239-2367 [id number] 24 Hour TotalINTAKE IV 350 9465 198 7160 IVPB 350 250 600 NS 0.9% 700 700 NS .45% 150 513 663 Shift Total 350 1100 513 1963OUTPUT Urine 550 304 056 9953 Void (ml) 550 774 959 2423 Chest Tube 525 250 775 Chest Tube Output (Chest Tube 03/27/18 1828 Left Lateral Tube #1) 804681 775 Shift Total 550 975 900 2425Weight (kg) 127.8 127.8 127.8 127.8 127.8 127.8 127.8 127.8MEDICATIONSCurrent Facility-Administered Medications:pantoprazole DR 40 mg tab(s) (PROTONIX) 40 mg ORAL BID AC (0600/1599)oxyCODONE IR 5 mg tab(s) (ROXICODONE) 5 mg ORAL q 6 H PRNinsulin regular human injection (short acting) (NovoLIN R,HumuLIN R)SUBCUTANEOUS w MEALS AND HSNaCl 0.45% iv infusion 100 mL/hr INTRAVENOUS CONTINUOUScefTRIAXone iv piggyback 2 g in dextrose (iso-osmotic) 50 mL (ROCEPHIN) 2g INTRAVENOUS q 24 Hdoxycycline 100 mg in D5W 250 mL (VIBRAMYCIN) 100 mg INTRAVENOUS q 12 Hdextrose 40 % 15 g 15 g ORAL PRNOrglucagon 1 mg injection (GLUCAGEN) 1 mg INTRAMUSCULAR PRNOrdextrose 50% in water 25 mL syringe 12.5 g INTRAVENOUS PRNprochlorperazine 5 mg injection (COMPAZINE) 5 mg INTRAVENOUS q 6 H PRNLabs:Recent Labs 8 150NA 141 -- 139K 3.7 -- 3.6CHLOR 112* -- 112*CO2 23 -- 23BUN 4* -- 7CREAT 0.54* -- 0.43*GLUC 121* -- 162*ANION 10 -- 8CA 7.4* -- 7.3*WBC 3.51* -- 4.35HB 7.3* 7.1* 7.5*HCT 23.1* -- 23.4*PLT 75* -- 101*INR -- -- 1.00Exam:GENERAL: No distress, AlertNEURO: AANDOx3, CN II-XII grossly intactHEENT: normocephalic, atraumaticLUNGS: Unlabored breathing O2 Therapy: Continuous Positive AirwayPressure, Left CT -20 sxn, serous output, no leakCARDIAC: Regular rate and rhythm as aboveABDOMEN: Soft, non-tender, non-distendedEXTREMITIES: FLORES, No deformities, No edemaSKIN: Skin color, texture, turgor normal, No rashes or lesionsASSESSMENT AND PLAN:Active Hospital Problems Diagnosis Date Noted- Obstructive sleep apnea 03/26/2018 Chronic- Diabetes ([facility]) 03/26/2018 Chronic- Nicotine use disorder, F17.2 03/25/2018- Obesity, Class III, BMI >= 40 03/25/2018- Malnutrition of moderate degree ([facility]) 03/25/2018- Anemia 03/24/2018- Atrial fibrillation with RVR ([facility]) 03/24/2018- Pulmonary embolism ([facility]) 03/24/2018- GI bleed 03/24/2018 Overview Note: Added automatically from request for surgery [id number] year old male with Left Parapneumonic Effusion s/p CT on 03/27, PE/DVTand DVT s/p EGD with PUD and Colonoscopy- med mgmt per primary- cont Left CT to -20 sxn- daily CXR pending- Pleural Cx and Cytology pending- Rocephin/Doxy per ID- Ambulate- IS- pain controlAssessment and plan discussed with attending: Dr. GuzmanATURE: Santos Wen MD PATIENT NAME: Joel MatsonDATE: March 28, 2018 : 6:05 AM Pager: [phone] seen up on floor now CXR OK and tube draining.P-encourage ambulation, pulmon toilet, incentive spirometer and continuechest tube on suction. Normal [facility] THERAPY NTon 03-28-2018 THERAPY NT HNO ID: [id number] thor: Holli (Pt) ToneyService: Physical TherapyAuthor Type: Physical TherapistType: Therapy (PT/OT/Speech/Resp)Filed: 03/28/2018 2:50 PMNote Text:PHYSICAL THERAPY MISSED VISITSERVICE DATE: 03/28/2018SERVICE TIME: 1315 (1325) and 1450 (returned and patient declined)ROOM: [place] [address]. Patient not seen due to Other: See Comment (Was upwith RN twice and near syncope each time).SIGNATURE: Holli Ziegler PT PATIENT NAME: Joel MatsonDATE: March 28, 2018 : 2:50 PM PAGER/CONTACT #: Normal [facility] Amylase,Body Fluidon 018 Specimen Type Pleural Normal [facility] Comment on above: Performed By: #### T &S ####[place] [address] Amylase 21 U/L Normal [facility] Comment on above: Result Comment: Perf ormance characteristics of this assay have not been evaluated for bodyfluids. No reference range has been established. Test analyzed by theSiemens's Marinette method. Performed By: #### T &S ####[place] [address] BF Cell Count/Diffon 018 BF/Nucleated Cells 167 /cmm Normal 0 [facility] Comment on above: Performed By: #### T &S ####[place] [address] Body Fluid Color Sveta Normal [facility] Comment on above: Performed By: #### T &S ####[facility] [place] [address] Erythrocytes (RBC) [address] /cmm Normal 0 [facility] Comment on above: Performed By: #### T &S ####[facility] [place] [address] Specimen type Pleural Normal [facility] Comment on above: Performed By: #### T &S ####[facility] [place] [address] Urine, appearance Bloody Normal [facility] Comment on above: Performed By: #### T &S ####[place] [address] BRIEF OP NOTon 03-27-2018 BRIEF OP NOT HNO ID: [id number] thor: Navarro Tranervice: GastroenterologyAuthor Type: PhysicianType: Brief Op NoteFiled: 04/04/2018 1:06 PMNote Text:BRIEF OPERATIVE / PROCEDURE NOTELOG ID: [id number]/PROCEDURE DATE: 03/27/2018SURGEON(S)/PROCEDURALIST (S) AND SUBSTATION OPERATOR HELPER GENERATION(S): Navarro Kang - PrimaryendoscopistINDICATION: MELENAPRE-OP/PRE-PROCEDURE DIAGNOSIS: GI bleedinPOST-OP/POST-PROCEDURE DIAGNOSIS: Diverticulosis, sig. Colon , withoutbleeding. Otherwise normal colon and terminal ileumPROCEDURE(S): colonoscopyANESTHESIA: Conscious SedationFINDINGS: diverticulosis. Small amount of tarry stool in cecum. Normalterminal ileum . No blood coming from above.ESTIMATED BLOOD LOSS: NoneSPECIMENS: noneCOMPLICATIONS: NonePOST-PROCEDURE RECOMMENDATIONS/FOLLOW UP: Capsule endo if bleeding recursDictated-[id number]: Navarro Kang MD PATIENT NAME: Joel MatsonDATE: 03/27/2018 : normal Normal [facility] Basic Panelon 03-27-2018 Urea nitrogen 7 mg/dL Normal 7-18 [facility] Comment on above: Performed By: #### P 8 ####[place] [address] Creatinine 0.43 mg/dL Low 0.67-1.17 [facility] Comment on above: Performed By: #### P 8 ####[facility] [place], [place] [address] Anion gap 8 mmol/L Normal 8-16 [facility] Comment on above: Performed By: #### P 8 ####[facility]1 [place], [place] [address] Calcium 7.3 mg/dL Low 8.5-10.1 [facility] Comment on above: Performed By: #### P 8 ####[address] [address] CO2 23 mmol/L Normal 21-32 [facility] Comment on above: Performed By: #### P 8 ####[address] [address] Glucose mass conc 162 mg/dL High 70-99 [facility] Comment on above: Performed By: #### P 8 ####[place] [address] Chloride 112 mmol/L High 98-107 [facility] Comment on above: Performed By: #### P 8 ####[address] [address] Potassium molar conc 3.6 mmol/L Normal 3.5-5.1 [facility] Comment on above: Performed By: #### P 8 ####[place] [address] Sodium 139 mmol/L Normal 136-145 [facility] Comment on above: Performed By: #### P 8 ####[address] [address] CASE MGT INIT ASSESon 2017 CASE MGT INIT ASSES HNO ID: [id number]: Monica (Rn) JUAN RAMON Mayservice: Care ManagementAuthor Type: Registered NurseType: Care Mgt Initial AssessmentFiled: 03/27/2018 3:14 PMNote Text:CARE MANAGEMENT: ASSESSMENT AND DISCHARGE PLANSERVICE DATE: 03/27/2018SERVICE TIME: 3:04 PMPRIMARY CARE PHYSICIAN:katherine Pinto Chi [phone]: NoneADMISSION STATUS: InpatientMEDICAL:Patient/Represen tative Stated Goals:To return home to life as it [facility] Insurance: BLUE ACCESS PPOAnthemHealth Issues Impacting Discharge Plan: NoneLast Admission Date: noneIs this Within the Past 30 days? NoAdvance Directive:Health Literacy:1. How often do you need to have someone help you when you readinstructions, pamphlets, or other written material from your doctor orpharmacy? Never - 12. How confident are you filling out medical forms by yourself? Extremely- 1If Patient scores > 3 on either question, the following interventions wereput into place:Patient did not score > 3FUNCTIONAL AND COGNITIVE/BEHAVIORALPRIOR TO ADMISSION:Baseline Mental Status: Alert AND Oriented, Person, Place , Time andSituationFunctional Status: IndependentDoes Patient Currently Receive Any Community Services or Home Care? NoneEquipment Prior to Admission: NoneHas the Patient Been in a Retirement Facility in the Past 30 days? NoSOCIAL:Living Arrangement: HomeLives With: SpouseFinancial Resources: Employed: .Primary Contact: Extended Emergency Contact InformationPrimary Emergency Contact: Varun Matson Offthfgl: SonSecondary Emergency Contact: Rosaura Matson Exumxexf: SpouseSupportive: YesOther Important Patient Contacts: NoneCaregiver Assessment:Caregiver is ready, willing and able to meet the patient's needs asrecommended by the inter-professional team? YesPatient's transition needs and plan for meeting these needs: noDoes the patient have an acute stroke diagnosis, or has the patient had astroke during this admission? NoMedication Adherence:I am convinced of the importance of my prescription medication: Agreecompletely - 0I worry that my prescription medication will do more harm than good to meDisagree mostly - 0I feel financially burdened by my dgb-gj-rwqweg expenses for myprescription medication: Agree somewhat - 0Patient is categorized as low risk < 2Are you interested in bedside delivery of your medications? NoFood Concerns:In the Last Month, Have You had Trouble Getting Food? No trouble gettingfoodDuring the Last Month, Have You Worried Whether Your Food Would Run OutBefore You Had Enough Money to Buy More? NoIs the Patient Psychosocially Complex? NoASSESSMENT AND PLAN:Medical Needs: NonePsychosocial Needs: NoneFREEDOM OF CHOICE EXPLAINED:N/APOTENTIAL TRANSITION PLANSTo Be DeterminedPt's pharmacy [facility] [place]osterSIGNATURE: Monica Mays RN PATIENT NAME: Joel HisnuryDATE: March 27, 2018 : 3:04 PM PAGER/CONTACT #: [phone] Normal [facility] CHEST 1 VIEWon 03-27-2018 Protein Performed at [facility] APPROVED BY: Franklin Winn MD EXAM TITLE: [...] with interval improvement in left pleural effusion. Normal [facility] Protein Performed at [facility] APPROVED BY: Jacobo Orozco MD EXAM TITLE: CHEST 1 VIEW DATE: 03/27/2018 06:33 COMPARISON: 03/25/2018 in addition to other prior studies CLINICAL INDICATION/HISTORY: Shortness of breath, pleural effusion TECHNIQUE: AP upright portable chest FINDINGS:No significant change. Again noted is a moderate-sized left-sided pleural effusion with presumed underlying compressive atelectasis. The right lung appears clear. Normal, stable cardiac size. No acute bony abnormality. IMPRESSION: No change. Moderate left-sided pleural effusion. Normal [facility] Cult Fungalon 03-27-2018 Cult Fungal Test performed at [facility] No fungus (yeast or mold) cultured Normal [facility] Comment on above: Performed By: #### C _FUN ####[place] [address] Cult and [employer]r [employer] (TB)on 03-08 Cult and Smr [employer] (TB) Test performed at [facility] No acid fast bacilli cultured No acid fast bacilli seen Normal [facility] Comment on above: Performed By: #### R BCPS ####[facility] [place], [place] [address] Cult and Smr Body Fluidon Cult and Smr Body Fluid Test performed at [facility] No growth No organisms seen Normal [facility] Comment on above: Performed By: #### C _BF ####[facility] [place], [place] [address] Cult and Smr Respiratoryon 0 03-27-2018 Cult and Smr Respiratory Test performed at [facility]>25 epithelial cells/LPF. Smear suggests specimenunacceptable for culture due to oropharyngeal contamination.No further testing will be done unless Microbiology lab iscontacted within 48 hours. Please submit another specimen. Normal [facility] Cytology, Medicalon 03-27-20 Cytology, Medical Test performed at [facility] [place], [place] [address]BELI: JOEL MATSON [id number] REQUESTING: DAVID CERRATO M.D.DIAGNOSISLEFT PLEURAL FLUID - NEGATIVE FOR MALIGNANT CELLS. SEE COMMENTNARRATIVEFEW MESOTHELIAL CELLS WITH HISTIOCYTES AND SCATTERED LYMPHOCYTES WITHPMNS.COMMENTA PANEL OF IMMUNOSTAINS WAS PERFORMED AND DEMONSTRATED MANY CD 163POSITIVE HISTIOCYTES AND A FEW WT1 POSITIVE MESOTHELIAL CELLS AND RARECD 117 POSITIVE CELLS. NO DEFINITE MALIGNANY PROCESS IS IDENTIFIED.TANNER ADHIKARI ALSO REVIEWED THE CASE AND CONCURS WITH THE DIAGNOSIS.SPECIMEN: A) PLB, PLEURAL FLUID W/CELL BLOCK LEFT Description: Materials Prepared & Examined: Volume: ......... 75 # of Cell Blocks: .......... 1 Color: ............ Sveta # of Monolayers: .......... 1 Consistency: ...... Cloudy # of Smear slides: ......... 1 Other: ............. 3 # of Slides: ................. immunostains 7Electronically Signed: 03/31/2018Screened by: MARITZA CHACON([facility])Signed Out by: MIGUEL ANGEL COLEMAN M.D. PATHOLOGISTPrinted on: March 31, 2018 Page 1 of 1 Normal [facility] Comment on above: Performed By: #### G FR ####[facility] [place], [place] [address] Glucose Meteron 03-27-2018 Glucose mass conc 121 mg/dL High 70-99 [facility] Comment on above: Performed By: #### T &S ####[address] [address] Glucose mass conc 161 mg/dL High 70-99 [facility] Comment on above: Result Comment: INEZ RODRÍGUEZ Performed By: #### G LMET ####[address] [address] Glucose mass conc 157 mg/dL High 70-99 [facility] Comment on above: Performed By: #### G LMET ####[address] [address] Glucose mass conc 189 mg/dL High 70-99 [facility] Comment on above: Performed By: #### L AC ####[address] [address] Glucose,Body Fluidon 018 Glucose, Fluid 133 mg/dL Normal [facility] Comment on above: Result Comment: Perf ormance characteristics of this assay have not been evaluated for bodyfluids. No reference range has been established. Test analyzed by theemens's Marinette method. Performed By: #### T &S ####[address] [address] Hemogramon 03-27-2018 Erythrocyte distribution width Auto Ratio (RBC) 20.0 % High 11.6-14.4 [facility] Comment on above: Performed By: #### C BC1 ####[address] [address] Erythrocytes (RBC) 2.54 mil/cmm Low 4.63-6.08 [facility] Comment on above: Performed By: #### C BC1 ####[address] [address] Hematocrit (HCT) 23.4 % Low 40.1-51.0 [facility] Comment on above: Performed By: #### C BC1 ####[address] [address] Hemoglobin mass conc (Bld) 7.5 g/dL Low 13.7-17.5 [facility] Comment on above: Performed By: #### C BC1 ####[place] [address] MCH 29.5 pg Normal 25.7-32.2 [facility] Comment on above: Performed By: #### C BC1 ####[place] [address] MCHC mass conc (RBC) 32.1 % Low 32.3-36.5 [facility] Comment on above: Performed By: #### C BC1 ####[place] [address] MCV 92.1 fL Normal 83.2-95.6 [facility] Comment on above: Performed By: #### C BC1 ####[place] [address] Nucleated erythrocytes 0.02 thou/cmm High 0.00-0.01 [facility] Comment on above: Performed By: #### C BC1 ####[place] [address] Nucleated RBC % 0.5 % High 0.0-0.2 [facility] Comment on above: Performed By: #### C BC1 ####[place] [address] Platelet mean volume (PMV) 9.6 fL Normal 8.7-12.0 [facility] Comment on above: Performed By: #### C BC1 ####[place] [address] Platelets 101 thou/cmm Low 141-365 [facility] Comment on above: Performed By: #### C BC1 ####[place] [address] RDW SD 51.3 fl High 36.1-45.8 [facility] Comment on above: Performed By: #### C BC1 ####[place] [address] WBC (Leukocytes) 4.35 thou/cmm Normal 4.23-9.07 [facility] Comment on above: Performed By: #### C BC1 ####[place] [address] Hgbon 03-27-2018 Hemoglobin mass conc (Bld) 7.1 g/dL Low 13.7-17.5 [facility] Comment on above: Performed By: #### H GBI ####[place] [address] LDH,Body Fluidon 03-27-2018 LDH, Body Fluid 217 U/L Normal [facility] Comment on above: Result Comment: Perf ormance characteristics of this assay have not been evaluated for bodyfluids. No reference range has been established. Test analyzed by theemens's Marinette method. Performed By: #### T &S ####[place] [address] MDRD GFRon 03-27-2018 eGFR (non-black) mL/min/{1.73_m2} Normal >60mL/m in/ 1.73m2 [facility] Comment on above: Result Comment: If t he patient is , multiply the result by 1.210. Performed By: #### G FR ####[place] [address] Misc. Send Outon 03-27-2018 Result See Below Normal [facility] Comment on above: Result Comment: Nega tive: No organisms were detected.COMMENT- The Film Array Respiratory Panel detects DNA or RNAfor the following organisms:AdenovirusCoronavirus(targets 229E,HKU1,NL63 and OC43)Human metapneumovirusRhinovirus/EnterovirusInfluenza A virusInfluenza B virusParainfluenza Virus 1Parainfluenza Virus 2Parainfluenza Virus 3Parainfluenza Virus 4Respiratory Syncyctial virus (RSV)Bordetella parapertussisBordetella pertussisChlamydophila pneumoniaeMycoplasma pneumoniae Performed By: #### T &S ####[place] [id number] NURSING PROGon 03-27-2018 NURSING PROG HNO ID: [id number] Author: Carolina (Rn) Kendall RN Service: (none) Author Type: Registered Nurse Type: Nursing Progress Note Filed: 03/27/2018 4:28 PM Note Text: Was unable to retrieve transverse colon polyp. Dr Jorge Luis lester. [facility] NURSING PROG HNO ID: [id number] thor: Kandace CoreasRn) Jose Elias, RNService: (none)Author Type: Registered NurseType: Nursing Progress NoteFiled: 03/27/2018 3:44 PMNote Text: Nursing Progress NotePatient Name: Joel BrunsonArunaN: [id number] Location: [place] [address]* Colonoscopy done at bedside per .This note was completed by: Kandace Moctezuma RN [facility] NURSING PROG HNO ID: [id number] thor: Kandace Fajardo) Jose Elias RNService: (none)Author Type: Registered NurseType: Nursing Progress NoteFiled: 03/27/2018 11:33 AMNote Text: Nursing Progress NotePatient Name: Joel BrunsonArunaN: [id number] Location: [place] [address]* RN attempted 3 IV's, unsuccessful. Resident notified that pt has noaccess. Picc team notified. Picc team will attempt peripheral IV latertoday.This note was completed by: Kandace Moctezuma RN [facility] NURSING PROG HNO ID: [id number] thor: Kandace Fajardo) JUAN RAMON Moctezumaervice: (none)Author Type: Registered NurseType: Nursing Progress NoteFiled: 03/27/2018 10:02 AMNote Text: Nursing Progress NotePatient Name: Joel BrunsonRN: [id number] Location: [place] [address]* Rounds with , residents, RN, and pharm D.This note was completed by: Kandace Moctezuma RN [facility] NURSING PROG HNO ID: [id number] thor: Kandace Fajardo) Too Moctezumaice: (none)Author Type: Registered NurseType: Nursing Progress NoteFiled: 03/27/2018 2:38 PMNote Text: Nursing Progress NotePatient Name: Joel BrunsonRN: [id number] Location: [place] [address]* Tap water enema given per order of .This note was completed by: Kandace Moctezuma RN [facility] OPERATIVE NOon 03-27-2018 OPERATIVE NO HNO ID: [id number] thor: Navarro Tranervice: GastroenterologyAuthor Type: PhysicianType: Operative ReportFiled: 03/31/2018 6:11 PMNote Text:[facility] - Operative ReportSURGEON: TOMMY ConwayATIENT NAME: ILA MATSONRN: [id number] CSN: [id number] OF SURGERY: 03/27/2018DATE OF : 1965 SEX/AGE: M/52PATIENT TYPE: I HOSP SVC: PULM LOCATION: [id number] OF SURGERY: 03/27/2018SURGEON: TOMMY ConwayROCEDURE PERFORMED: Colonoscopy with ileoscopy. Scope advanced to thedistal 10 cm of ileum. Hot snare polypectomy at the transverse colon wasperformed.COMPLICATIONS NOTED: None.MEDICATION GIVEN: Fentanyl 150 mcg IV and Versed 4 mg IV.INSTRUMENT USED: Olympus Kuznech videocolonoscope.INDICATION FOR THE PROCEDURE: This 52-year-old male patient, who is onanticoagulation for DVT, was admitted with history of bloody stools and asignificant drop in hemoglobin and hematocrit.TECHNIQUE: Informed consent was obtained. The patient was placed in leftlateral position in the Intensive Care Unit bed. IV sedation was givenusing fentanyl and Versed in divided doses until the desired level ofsedation was achieved and maintained. The patient's vital signs weremonitored throughout the procedure.A videocolonoscope was passed per anal route into the rectum and advancedup to the bottom of cecum without any difficulty. Copious irrigation wasused to clear out foamy material and coffee-grounds material in thececum. Scope was then inserted into the terminal ileum for [id number] cm. Lavage of the terminal ileum was also performed, even though thecontents were bilious and otherwise clear. The endoscope was thengradually withdrawn down to the level of the rectum where it wasretroflexed before retrieving it completely.FINDINGS: Small amount of melenic material noted in the cecum, which wassuctioned out. No blood was seen in the entire colon from anal verge tothe cecum otherwise. No fresh blood was noted. There was a small polypnoted at thetransverse colon, which was resected with hot snare. The terminal ileumwas noted to be normal with no blood coming from the upper part of thesmall bowel.RECOMMENDATION: If the patient continues to bleed or bleeding recurs, wewill need capsule endoscopy.Ken ConwaystroenterologyGM:modlD: 03/27/2018 22:02:19T: 03/28/2018 05:43:39Job #: [id number]:Navarro Kang MD [facility] PH, Body Fluidon 03-27-2018 pH, Body Fluid 7.680 [facility] Comment on above: Performed By: #### T &S ####[facility] [place] [address] PLAN OF CAREon 03-27-2018 PLAN OF CARE HNO ID: [id number] thor: Courtney Mcnair (Pharmacist)Service: PharmacyAuthor Type: PharmacistType: Plan of CareFiled: 03/27/2018 3:22 PMNote Text:MEDICATION HISTORY AND MEDICATION RECONCILIATIONPatient Name:Jorge CarrilloN: [id number]: 1965Source of history:Pharmacy records: [facility] (Katherine) and OARRSMedication Nonadherence Identified: No barriers notedThe above information represents the best possible medication history: YesReconciliation completed? NoAdditional comments: Please note the following changes to the initial PTAmedication list:-Removed 4 compounded prescriptions (incomplete details provided; from08/01/2007)-Removed exanatide (incomplete details provided; from 08/01/2007)-Added all medications belowOf note:-Cefdinir 300 mg BID x 10 days, ZPak, Tam[facility], [facility]Baclofen, gabapentin, diclofenac were only for a 14-day supply ([facility])-Valtrex filled 03/10/18 for a 1-week supply-Guaifenesin AC cough syrup 10 mL every 4 hours as needed for cough (250mL; 6-day supply) filled 03/03/18.Please see individual medications for comments/last fill dates.Allergies: ALLERGIESNo Known AllergiesPreferred Pharmacy: [facility].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 Do not mix with other insulins. Yestestosterone (ANDROGEL) 20.25 mg/1.25 gram (1.62 %) glpm Apply 2 pumps asdirected once daily. YesmetFORMIN (GLUCOPHAGE) 1,000 mg tablet Take 1,000 mg by mouth twice dailywith meals. Yeslinagliptin (TRADJENTA) 5 mg tab Take 1 tablet by mouth once daily. Yesrosuvastatin (CRESTOR) 40 mg tablet Take 40 mg by mouth daily at bedtime.Yeslosartan (COZAAR) 100 mg tablet Take 100 mg by mouth once daily. Yesdiclofenac, EC, (VOLTAREN) 50 mg EC tablet Take 50 mg by mouth twicedaily. With food Filled 03/10/18 for a 14-day supply only. Yesbaclofen (LIORESAL) 10 mg tablet Take 10 mg by mouth daily at bedtime.Filled 03/10/18 for a 14-day supply only. Yesgabapentin (NEURONTIN) 400 mg capsule Take 400 mg by mouth three timesdaily. Filled 03/10/18 for a 14-day supply only. Yesescitalopram oxalate (LEXAPRO) 10 mg tablet Take 10 mg by mouth oncedaily. Yesalbuterol HFA (VENTOLIN HFA) 90 mcg/actuation inhaler Inhale 2 Puffs asinstructed every 4 hours as needed for Wheezing/Shortness of Breath. TAMMI WoodMay 2017 2:53 PM Normal [facility] PROCEDUREon 03-27-2018 PROCEDURE HNO ID: [id number] thor: Bobo Camposervice: TraumaAuthor Type: ResidentType: ProceduresFiled: 03/27/2018 6:40 PMNote Text:BEDSIDE PROCEDURE NOTEPROCEDURE DATE: March 27, 2018PROCEDURE START TIME: 1800PRIMARY PROCEDURALIST: JP TorrezISTANT(S): NoneINFORMED CONSENT: Informed Consent obtained and on the chartUNIVERSAL PROTOCOL / SAFETY CHECKLISTSign in Communication: CompletedTime Out: Team Confirms the Correct Patient, Correct Procedure, CorrectSite and Site Marking, Correct Position (if applicable), Prep and Dry Time(if applicable). Time: 1800Affirmation of Time Out: YESSign Out Discussion: CompletedPROCEDURE: CHEST TUBE INSERTIONIndication: EmpyemaAnalgesia/Sedation: Lidocaine 1% 40cc, Versed 2mg, Fentanyl 125mcgSite: Left anterior intercostal spaceSite Prep: Chlorhexidine gluconate 4% which was allowed to dryA scalpel was used to make a 3 cm incision at the intercostal space. Thepleural cavity was entered using a breann clamp. There was return ofserosanguineous fluid upon entering the pleural cavity. The appropriatelocation in the pleural cavity was confirmed by noting the presence oflung. A number 32 chest tube was inserted into the cavity to 20 cm. Thetube was secured with sutures and tape. A xeroform dressing was placedaround the tube. The tube was connected to wall suction.Patient tolerated procedure well.Complications: NoneChest x-ray ordered to confirm placement, results pending.Specimens: Pleural Fluid for Cultures, Routine Pleural Fluid Studies andOther Studies for CytologyEstimated Blood Loss: ScantSIGNATURE: Bobo Macias MD PATIENT NAME: Joel MatsonDATE: March 27, 2018 : 6:38 PM PAGER/CONTACT #: [phone] Normal [facility] PROGRESSon 03-27-2018 PROGRESS HNO ID: [id number] thor: John Hernandez IIIService: Infectious DiseaseAuthor Type: PhysicianType: Progress NotesFiled: 03/27/2018 4:13 PMNote Text:INFECTIOUS DISEASE CONSULT PROGRESS NOTESERVICE DATE: 03/27/2018SERVICE TIME: 12:17 PMCONSULTING SERVICE: ICUThe patient is a 52-year-old man with past medical history of DM, ANDREW,history of testicular caner. [facility], severe dyspnea and A fib withRapid Ventricular Rate. Patient was found to have a loculated left pleuraleffusion with left lower lobe infiltrate and left lower lobe pulmonaryembolism. Due to to very low HB and suspected GI bleed patient could notbe anticoagulated. IVC filter was placed yesterday by vascular. Patientgot an EGD which showed 3 gastric ulcer but unlikely the source ofbleeding is scheduled to get a colonoscopy today and then chest tubeplaced for pleural effusion. Was initially on Piperacillin/Tazobactam andnow on Ceftriaxone and doxycycline.SubjectiveINTERVAL HISTORY OF PRESENT ILLNESS:No overnight events. Patient has mild cough better than before and leftsided neck pain. No chest pain.Current Facility-Administered Medications:pantoprazole 40 mg injection (PROTONIX) 40 mg INTRAVENOUS DAILY (6 AM)NaCl 0.45% iv infusion 100 mL/hr INTRAVENOUS CONTINUOUScefTRIAXone iv piggyback 2 g in dextrose (iso-osmotic) 50 mL (ROCEPHIN) 2g INTRAVENOUS q 24 Hdoxycycline 100 mg in D5W 250 mL (VIBRAMYCIN) 100 mg INTRAVENOUS q 12 Hpotassium chloride 80-120 mEq oral liquid 80-120 mEq ORAL/FEEDING TUBE PRNpotassium chloride iv piggyback 20 mEq in sterile water 100 mL 20 mEqINTRAVENOUS PRNmagnesium sulfate in water 2 g in sterile water 50 ml 2 g INTRAVENOUS PRNsodium phosphate 45 mmol in NaCl 0.9% 250 mL 45 mmol INTRAVENOUS PRNcalcium gluconate 4 g in NaCl 0.9% 250 mL 4 g INTRAVENOUS PRNdextrose 40 % 15 g 15 g ORAL PRNOrglucagon 1 mg injection (GLUCAGEN) 1 mg INTRAMUSCULAR PRNOrdextrose 50% in water 25 mL syringe 12.5 g INTRAVENOUS PRNinsulin regular human injection (short acting) (NovoLIN R,HumuLIN R)SUBCUTANEOUS q 6 Hondansetron (PF) 4 mg injection (ZOFRAN) 4 mg INTRAVENOUS q 6 H PRNprochlorperazine 5 mg injection (COMPAZINE) 5 mg INTRAVENOUS q 6 H PRNObjectivePHYSICAL EXAM:Patient Vitals for the past 24 hrs: BP Temp Temp src Pulse Resp SpO2 Xtohpn97/21/18 1000 117/62 - - 71 16 99 % -03/27/18 0900 127/72 - - 69 14 98 % -03/27/18 0800 112/82 - - 75 16 99 % -03/27/18 0700 119/59 - - 67 14 97 % -03/27/18 0600 115/60 - - 68 13 97 % -03/27/18 0500 107/58 - - 67 15 98 % -03/27/18 0400 108/51 36.4 ?C (97.5 ?F) Axillary 65 13 95 % 127.8 kg (281lb 12 oz)03/27/18 0300 108/60 - - 75 18 97 % -03/27/18 0200 105/61 - - 75 19 97 % -03/27/18 0100 111/63 - - 71 14 97 % -03/27/18 0000 95/73 36.5 ?C (97.7 ?F) Axillary 76 20 98 % -03/26/18 2300 102/62 - - 95 23 98 % -03/26/18 2200 (!) 79/63 - - 96 26 100 % -03/26/18 2100 123/59 - - 78 19 98 % -03/26/18 2000 (!) 97/42 36.6 ?C (97.9 ?F) Axillary 74 18 100 % -03/26/18 1900 120/65 - - 76 19 97 % -03/26/18 1800 106/69 - - 73 18 97 % -03/26/18 1700 88/54 - - 84 17 98 % -03/26/18 1600 109/63 36.6 ?C (97.9 ?F) - 78 19 99 % -03/26/18 1500 132/81 - - 77 19 99 % -03/26/18 1400 120/71 - - 72 18 98 % -03/26/18 1330 115/62 - - 71 16 98 % -03/26/18 1300 124/68 - - 71 15 99 % -Body mass index is 42.84 kg/m?.GENERAL: Alert, no distress, cooperativeSKIN: Skin color, texture, turgor normal. No rashes or lesions.OROPHARYNX: Lips, mucosa, and tongue are normal.Teeth and gums, normal.Oropharynx normal.NECK: No jugulovenous distention, No carotid bruits, Carotid pulse normalcontour, SuppleLUNGS: Decreased breath sounds on the left. Crackles present.CARDIAC: Normal S1 and S2; no rubs, murmurs, or gallopsABDOMEN: Abdomen soft, non-tender, BS normal, No masses or organomegalyEXTREMITIES: Extremities normal, no deformities, edema, clubbing or skindiscoloration. Good capillary refill., No ulcersNEURO: Alert, oriented X 3, Gait normal. Non-focal. Reflexes normal andsymmetric. Sensation grossly intact., Cranial nerves II-XII intactPULSES: 2+ radial, 2+ carotidDATA:Diagnostic tests reviewed for today's visit:Component Latest Ref Rng AND Units 03/26/2018 03/26/2018 03/26/201803/27/2018 2:00 AM 4:00 PM 11:27 PM 1:50 AM 6:16 AM 11:34 AMWBC 4.23 - 9.07 thou/cmm 6.14 4.35RBC 4.63 - 6.08 mil/cmm 2.55 (L) 2.54 (L)HGB 13.7 - 17.5 g/dL 7.5 (L) 7.4 (L) 7.5 (L)Hematocrit 40.1 - 51.0 % 23.0 (L) 23.4 (L)MCV 83.2 - 95.6 fl 90.2 92.1MCH 25.7 - 32.2 pg 29.4 29.5MCHC 32.3 - 36.5 % 32.6 32.1 (L)RDW 11.6 - 14.4 % 18.4 (H) 20.0 (H)RDW-SD 36.1 - 45.8 fl 48.0 (H) 51.3 (H)Platelet Count 141 - 365 thou/cmm 107 (L) 101 (L)MPV 8.7 - 12.0 fl 9.2 9.6Nucleated RBC % 0.0 - 0.2 % 1.6 (H) 0.5 (H)Nucleated RBC Absolute 0.00 - 0.01 thou/cmm 0.10 (H) 0.02 (H)Sodium 136 - 145 mEq/L 139 139Potassium 3.5 - 5.1 mEq/L 3.2 (L) 3.6Chloride 98 - 107 mEq/L 108 (H) 112 (H)CO2 21 - 32 mEq/L 27 23Glucose 70 - 99 mg/dL 189 (H) 162 (H)BUN 7 - 18 mg/dL 13 7Creatinine 0.67 - 1.17 mg/dL 0.53 (L) 0.43 (L)Calcium 8.5 - 10.1 mg/dL 7.0 (L) 7.3 (L)Anion Gap 8 - 16 7 (L) 8Prothrombin Time 9.3 - 11.9 sec 10.6INR 1.00eGFR >60mL/min/1.73m2 >60 >60STREP PNEUMONIAE AG Positive for pneumococcal pneumoniaLEGIONELLA AG, URINE Presumptive negative for L. pneumophilia serogroup1 antigen . . .GLUCOSE METER 70 - 99 mg/dL 189 (H) 157 (H) 161 (H)Impression/Recommendations1. Loculated left pleural effusion. Likely secondary to LLL Pneumoniasecondary left lower Pulmonary Embolism.- Patient to get Chest tube placed today. Send for pleural studies.- urine strep Pnemo positive.- Continue with Ceftriaxone and doxycycline. Patient received one dose ofPiperacillin/Tazobactam- IVC filter in place.2. Severe anemia, attributed to GI bleeding.- awaiting colonoscopy3. History of testicular cancer, treated with resection and radiationtherapy.4. Diabetes mellitus.5. Atrial fibrillation.- Amio stopped.SIGNATURE: Shruthi Carmichael MD PATIENT NAME: Joel MatsonDATE: March 27, 2018 : 12:16 PM PAGER/CONTACT #: [phone] saw and evaluated the patient. Discussed with the resident and agreewith resident's findings and plan as documented in the resident's note.Concerned for left sided empyema related to S. pneumo pneumonia.Continue doxycycline plus ceftriaxone. Once cultures available frompleural fluid then will narrow antibiotics.Will need 4-6 weeks of oral therapy.SIGNATURE: John Hernandez III, MD PATIENT NAME: Joel MatsonDATE: March 27, 2018 : 4:12 PM PAGER/CONTACT #: [phone] [facility] PROGRESS HNO ID: [id number] thor: Ivan ([place]) George: Critical CareAuthor Type: ResidentType: Progress NotesFiled: 03/27/2018 12:22 PMNote Text: Attestation signed by Gerardo Nunez at 03/27/2018 1:34 PM (Updated)[facility] STAFF PHYSICIAN NOTE OF PERSONAL INVOLVEMENT IN CAREI have reviewed the progress note obtained and documented by the resident and Ipersonally participated in the quintana components. I have discussed the case andmanagement of the patient's care. The following comments revise or confirmrelevant quintana components of the note.Interval history:Patient is resting comfortably in bed without any current complaints.Exam:RRRClear to auscultation without wheezing bilaterally anteriorly.Good bowel sounds, soft, nontender, nondistended.Mild peripheral edema bilaterally.Dry, intact skin with good turgor.Data:Reviewed as detailed below.Most recent imaging personally reviewed by myself.IMPRESSION:ACTIVE PROBLEM LISTAnemiaAtrial Fibrillation With Rvr (Hcc)Pulmonary Embolism (Hcc)Nicotine use disorder, F17.2Obesity, Class III, BMI >= 40Malnutrition of Moderate Degree (Hcc)GI BleedDiabetes (Hcc)Obstructive Sleep ApneaAcute blood loss anemiaLoculated left pleural effusionPLAN:IV fluids.PPI.Check serial hemoglobins.Transfuse PRN.Keep NPO.Colonoscopy as per GI.No anticoagulation for now given the acute blood loss anemia, but has an IVCfilter in place.Await chest tube placement as per Cardiovascular/Thoracic Surgery. Checkpleural fluid studies from Pleuravac once it is available.Is stable and OK for transfer to regular medical floor from Pulmonary/CriticalCare standpoint after colonoscopy provided there are no colonoscopic findingsnecessitating ongoing ICU care.This patient has a high probability of sudden, clinically significantdeterioration, which requires the highest level of physician preparedness tointervene urgently. I managed/supervised life or organ supportinginterventions that required frequent physician assessment. I devoted my fullattention to the direct care of this patient for the amount of time indicatedbelow. Time I spent with family or surrogate(s) is included only if thepatient was incapable of providing the necessary information or participatingin medical decision making. Time devoted to teaching and to any procedures Ibilled separately is not included.Patient/Family Updated: Patient, Joel Matson, was updated regarding the goalsof care, medical plan for the day, group segment consultant recommendations, medicaldisposition and current medical condition/prognosis as and if clinicallyindicated. All questions and concerns were answered and addressed at thisjuncture.They were notified on March 27, 2018 at 09:20. The duration of the conversationwas five minutes.PROGNOSIS: GoodCode status: Full Code.Discussed with Registered Nurse, Pharmacist and Residents while performingmultidisciplinary rounds.Critical Care Documentation:The patient has the following organ/system impairment(s):Acute blood loss anemiaTime spent providing critical care services: 20 minutes.SIGNATURE: Gerardo Nunez, [facility] RESPIRATORY INSTITUTEPAGER:[id number] of SERVICE: March 27, 2018TIME of SERVICE: 1:24 PM Medical Intensive Care Progress NoteMay 2017Patient Name: Joel Matson Patient Location: [id number]/[facility]* Date: 03/24/2018 Length of Stay: 3Primary Service: Medical Intensive CareAssessment and plan will be discussed with Dr. Nunez and he will addendthis note as he sees appropriate. Please await his recommendations.Case background: Patient is a 52 y/o CM w/ a h/o testicular cancer s/pchemoradiation, DM type 2, ANDREW on CPAP who presented to [place] ED on03/24/18 for the complaint of 2-3 weeks of worsening productive cough andleft-sided chest pain after initial improvement with antibiotic treatmentby his PCP. He went to ED after a near-syncopal event with bladder/bowelincontinence. At [place], found to have Hb 4.[address] chest showedmoderate left loculated pleural effusion, left basilar atelectasis vsconsolidation, and LLL PE. Also found to be in Afib, started on amio gtt(which was stopped 03/25). He was transferred to [facility] ICU on 03/24 fortreatment of acute hypoxic resp failure 2/2 pneumonia vs. PE, [id number]-sub, and severe acute anemia likely due to blood loss. Patient receiveda total of 4 units pRBC since arrival, maintaining Hb ~ 7.5. ID followedand started Rocephin and doxy for suspected pneumonia. 03/25: EGD showed 3small ulcers that are unlikely source of blood loss. No interventionneeded. Planned for colonoscopy. 03/26: Vascular placed IVC filter (note,no thrombus seen on 03/24 US of BLE). 03/27: Colonoscopy per GI. Plan forthoracostomy per CT surgery after.Interval History for 03/27/18:Patient seen and examined in the AM. Admits limb swelling.Deniescomplaints detailed in review of systems below. NPO since midnight.Tolerating colon prep for colonoscopy at 1:30 PM today. No overnight acuteevents reported.Review of Systems: PER INTERVAL HISTORY ABOVE. Denies fevers, chills, rigors, malaise,chest pain, orthopnea, dyspnea, nausea, vomiting, abdominal pain, dysuria,hematuria, lightheadedness.ObjectivePresent Condition: 400 500 600 700BP: 108/51 107/58 115/60 119/59Pulse: 65 67 68 67Resp: 13 15 13 14Temp: 36.4 ?C (97.5 ?F)TempSrc: AxillarySpO2: 95% 98% 97% 97%Weight: 127.8 kg (281 lb 12 oz)Height:PHYSICAL EXAMINATION: Performed with findings detailed below on 03/27/18General: NAD, AANDO x3 , cooperative.Head: Normocephalic. Atraumatic.Eyes: PERRL. EOMI. No scleral icterus noted. Conjunctiva pink.Throat: Oral mucosa moist. No oropharyngeal erythema. No eruptions orexudates. Uvula midline.Cardiovascular: RRR, No M/G/RRespiratory: Lungs CTAB, No W/R/R, No crackles. Diminished at bilateralbases.Abdomen: Obese abdomen. Soft. Non-tender. Non-distended. No palpablemasses or hepatosplenomegaly. BSx4, normoactive. No bruits.Extremities: 2+ pitting upper extremity edema. No cyanosis or clubbing.Pulses: Dorsalis pedis, posterior tibial, and radial pulses 2+bilaterally. Capillary refill < 2 seconds.Neuro: Non-focal exam. Sensation intact in 4 extremities. Strength 4/4 in4 extremities.Current Facility-Administered Medications:cefTRIAXone iv piggyback 2 g in dextrose (iso-osmotic) 50 mL (ROCEPHIN) 2g INTRAVENOUS q 24 H Keli E Bollin Last Rate: 100 mL/hr at 03/27/18 0831 2g at 03/27/18 0831doxycycline 100 mg in D5W 250 mL (VIBRAMYCIN) 100 mg INTRAVENOUS q 12 HGary E Bollin Last Rate: 250 mL/hr at 03/26/18 1629 100 mg at [id number] [address] 40 mg tab(s) (PROTONIX) 40 mg ORAL DAILY (6 AM) RichardMark Salvino 40 mg at 03/26/18 0515potassium chloride 80-120 mEq oral liquid 80-120 mEq ORAL/FEEDING TUBE PRNRenetta ([place]) Tommy Mcallisterotassium chloride iv piggyback 20 mEq in sterile water 100 mL 20 mEqINTRAVENOUS PRN Renetta ([place]) MD Esvin Last Rate: 400 mL/hr at 80 mEq at 03/26/18 1004magnesium sulfate in water 2 g in sterile water 50 ml 2 g INTRAVENOUS PRNRenetta ([place]) Jerardo Mcallisterodium phosphate 45 mmol in NaCl 0.9% 250 mL 45 mmol INTRAVENOUS PRN Aleksandr Davisalcium gluconate 4 g in NaCl 0.9% 250 mL 4 g INTRAVENOUS PRN Renetta (MD KalliNaCl 0.9% iv infusion 100 mL/hr INTRAVENOUS CONTINUOUS Renetta (MD Kalli Last Rate: 100 mL/hr at 03/27/18 0629 100 mL/hr at [id number] 40 % 15 g 15 g ORAL PRN Renetta (Thomas Mcallister MDOrglucagon 1 mg injection (GLUCAGEN) 1 mg INTRAMUSCULAR PRN Renetta Sosa MDOrdextrose 50% in water 25 mL syringe 12.5 g INTRAVENOUS PRN Renetta (MD Kalliinsulin regular human injection (short acting) (NovoLIN R,HumuLIN R)SUBCUTANEOUS q 6 H Renetta (Res) MD Esvin 2 Units at 03/27/18 0616ondansetron (PF) 4 mg injection (ZOFRAN) 4 mg INTRAVENOUS q 6 H PRN Renetta(Res) MD Esvin 4 mg at 03/24/18 1250iv contrast (radiology procedure) INTRAVENOUS DIRECTED PRN Renetta (Res)Tommy Mcallisterrochlorperazine 5 mg injection (COMPAZINE) 5 mg INTRAVENOUS q 6 H PRNJulie (Res) MD EsvinNotable morning labs:Basic labs as below.Labs:CBC:Recent Labs 03/26/1816WBC 4.35 -- 6.14 -- -- -- 9.23* -- 8.91HB 7.5* 7.4* 7.5* 7.3* 8.1* 6.5* 7.2* 6.3* 4.7*HCT 23.4* -- 23.0* -- -- -- 21.3* -- 15.3*PLT 101* -- 107* -- -- -- 116* -- 146MCV 92.1 -- 90.2 -- -- -- 86.9 -- 94.4COAG:Recent Labs 03/24/1816APTT -- 19.1*INR 1.00 --BMP:Recent Labs 03/26/1802GLUC 162* 189* 207* 310*NA 139 139 139 137K 3.6 3.2* 3.5 3.8CHLOR 112* 108* 108* 105CO2 23 27 26 27ANION 8 7* 9 9BUN 7 13 18 15CREAT 0.43* 0.53* 0.53* 0.52*CHEM:Recent Labs 03/26/1802 05/18/687455KQP -- -- -- 1.7* --TPROT -- -- -- 4.8* --CA 7.3* 7.0* 7.1* -- 7.3*HEPATIC:Recent Labs [id number] 66ALT 18AST 19TBILI 1.7*URINALYSIS:No results for input(s): PH, SPGR, UGLUC, UBILI, UKET, UHB,UPROT, UROBIL, UWBC, SSA in the last 168 hours.Invalid input(s): NITRCARDIAC: No results for input(s): CKTEST, CKMB, CKMBP in the last 168hours.TROPONIN@:8,No results found for: BNP:8)@Intake/Output Summary (Last 24 hours) at 03/27/18 0903Last data filed at 03/27/18 0756 Gross per 24 hourIntake 5102 mlOutput 1551 mlNet 3551 mlSerum creatinine: 0.43 mg/dL (L) 03/27/18 0150Estimated creatinine clearance: 265 mL/min (A)Assessment/PlanReviewed in its entirety and amended as appropriate on 03/27/18CardiovascularCentral venous access: None.Summary of pressor usage: None.Echocardiogram findings: None on file.EKG findings: None on file.IV fluid administration: Currently IV 1/2 NS at 100 cc/hrCurrent antihypertensive agents: None.Current anticoagulation / antiplatelet agents: None.Paroxsymal A.fib-Rate improved with amiodarone, gtt stopped after 03/25/18RespiratoryCXR findings: 03/27: Slightly improved left-sided pleural effusion,interval improvement of hilar vascular congestion when compared to 03/25udy.CT chest findings: None this admission.Respiratory support measures: 97% on room air.Breathing treatments in use: None.Thoracic surgery followin/20: Recommend large-bore chest tube. INR Zaynab.Acute respiratory failure-O2 NC wean as tolerated.Pneumonia with loculated pleural effusion-Chest surgery consult for chest tube- ID following. See microbiology and infectious below.InfectiousAntibiotic allergies: None.Antibiotics in use: Ceftriaxone 2 g IV qd ; Doxy 100 mg q12h (both Day 2)Microbiology data summary: S.pneumo Ag postive, ULeg negative, RespCxpending, Histo Ag pending ; MRSA nares negative.Infectious diseases followin/20: Started ceftriaxone and doxy ; sendpleural fluid for Cx and cytology ; Follow data (above)Pneumonia with management as noted above.Renal / GUFoley in place?: None.Diuretics in use: None.Shift total output: 1.3 LShift net I/O: + 5,246Estimate of recent hourly output: ~200 - 250 cc/hrWeight change since admission: + 7 kg.Consider gentle diuresis to address fluid excess or reducing IVF flowrate.NeuroSedation: None.Head imaging: None.No current concern for related abnormal data or patient history on presentadmission.Gastrointestinal GI prophylaxis: Protonix 40 mg po qdGI tubes and feeds / current diet: NPO since midnight.Gastroenterology followin/20: Colonoscopy today 03/27 after NPO atmidnight and AM colon prep.GI bleed- monitor HgB, transfuse <7- EGD yesterday did not reveal bleeding- GI following- Protonix daily- IV fluids- Colonoscopy in the PM 03/27.Endocrine / MetabolicInsulin orders: Regular SSI (2 units for 201-250)HematologicDVT prophylaxis: Bilateral SCDs - No anticoagulant due to GIB / blood lossanemia.Transfusions this admission: Total of 4 units RBC transfused, last on03/25.H/O PE/DVT-anticoagulation contraindicated due to GI bleed- IVC filter placed 03/26/18SubjectivePAST MEDICAL HISTORYDiagnosis Date- Testicular cancer (HCC) 2003No current facility-administered medications on file prior to encounter.Current Outpatient Prescriptions on File Prior to Encounter:COMPOUNDED PRESCRIPTION testosterone cream for testic CACOMPOUNDED PRESCRIPTION glucophage dose not knownExenatide 10 mcg/0.04 mL SUBCUTANEOUS PnIj Take one(1) tablet two(2) timesdaily.COMPOUNDED PRESCRIPTION diabetic med, name/dose unknownCOMPOUNDED PRESCRIPTION lexapro, dose unknownSigned: Ivan Cagle DO, PGY-1Pager: [phone] Hfxr: March 27, 2018Recommendations are not finalized until co-signed by Staff physician. Normal [facility] PROGRESS HNO ID: [id number] thor: Janet Braun Beccaervice: Thoracic SurgeryAuthor Type: PhysicianType: Progress NotesFiled: 03/27/2018 7:08 PMNote Text:Thoracic Surgery Progress NoteSERVICE DATE: 03/27/2018SubjectiveSUBJECTIVE:JULIA ON, denies bleeding, up in chair resting comfortablyDenies N/V/CP/SOBDiet: DIET NPOObjectiveOBJECTIVE:Vitals:Temp (24hrs), Av.4 ?C (97.6 ?F), Min:36 ?C (96.8 ?F), Max:36.6 ?C(97.9 ?F)BP 107/58 Pulse 67 Temp 36.4 ?C (97.5 ?F) (Axillary) Resp 15 Ht 172.7 cm (5' 8 ) Wt 127.8 kg (281 lb 12 oz) SpO2 98% BMI 42.84kg/m?O2 Therapy: Room AirIANDO:Date 03/26/18 07 - 03/27/18 0659 03/27/18 07 - 03/28/18 0659Shift 1240-0110 4633-9672 8548-4119 24 Hour Total 4874-9335 2827-52205394-3824 24 Hour TotalINTAKE PO 1320 1920 585 1947 PO 1320 0599 116 0895 IV 980 2681 279 8626 IVPB 250 250 NS 0.9% 530 5081 885 5708 Zosyn IV 50 50 Ceftriaxone IV 50 50 Potassium IVPB 400 400 Shift Total 2300 3074 1037 6411OUTPUT Urine 0 333 284 3522 Void (ml) 0 068 641 5056 Urine Incontinence/Not Saved 2 x 2 x 4 x Urine Not Saved 1 1 # of BMs Stool Incontinence 1 x 1 x Number of BMs 0 x 4 x 4 x 8 x Shift Total 0 650 451 1101Weight (kg) 124 124 127.8 127.8 127.8 127.8 127.8 127.8MEDICATIONSCurrent Facility-Administered Medications:cefTRIAXone iv piggyback 2 g in dextrose (iso-osmotic) 50 mL (ROCEPHIN) 2g INTRAVENOUS q 24 Hdoxycycline 100 mg in D5W 250 mL (VIBRAMYCIN) 100 mg INTRAVENOUS q [address] 40 mg tab(s) (PROTONIX) 40 mg ORAL DAILY (6 AM)potassium chloride 80-120 mEq oral liquid 80-120 mEq ORAL/FEEDING TUBE PRNpotassium chloride iv piggyback 20 mEq in sterile water 100 mL 20 mEqINTRAVENOUS PRNmagnesium sulfate in water 2 g in sterile water 50 ml 2 g INTRAVENOUS PRNsodium phosphate 45 mmol in NaCl 0.9% 250 mL 45 mmol INTRAVENOUS PRNcalcium gluconate 4 g in NaCl 0.9% 250 mL 4 g INTRAVENOUS PRNNaCl 0.9% iv infusion 100 mL/hr INTRAVENOUS CONTINUOUSdextrose 40 % 15 g 15 g ORAL PRNOrglucagon 1 mg injection (GLUCAGEN) 1 mg INTRAMUSCULAR PRNOrdextrose 50% in water 25 mL syringe 12.5 g INTRAVENOUS PRNinsulin regular human injection (short acting) (NovoLIN R,HumuLIN R)SUBCUTANEOUS q 6 Hondansetron (PF) 4 mg injection (ZOFRAN) 4 mg INTRAVENOUS q 6 H PRNiv contrast (radiology procedure) INTRAVENOUS DIRECTED PRNprochlorperazine 5 mg injection (COMPAZINE) 5 mg INTRAVENOUS q 6 H PRNLabs:Recent Labs 150 600 400 345NA 139 -- 139 < > -- 137K 3.6 -- 3.2* < > -- 3.8CHLOR 112* -- 108* < > -- 105CO2 23 -- 27 < > -- 27BUN 7 -- 13 < > -- 15CREAT 0.43* -- 0.53* < > -- 0.52*GLUC 162* -- 189* < > -- 310*ANION 8 -- 7* < > -- 9CA 7.3* -- 7.0* < > -- 7.3*ALB -- -- -- -- 1.7* --AST -- -- -- -- 19 --ALT -- -- -- -- 18 --ALKPHOS -- -- -- -- 66 --TBILI -- -- -- -- 1.7* --WBC 4.35 -- 6.14 < > -- 8.91HB 7.5* 7.4* 7.5* < > -- 4.7*HCT 23.4* -- 23.0* < > -- 15.3*PLT 101* -- 107* < > -- 146LACT -- -- -- -- -- 1.1INR 1.00 -- -- -- -- --< > = values in this interval not displayed.Exam:GENERAL: No distress, AlertNEURO: AANDOx3, CN II-XII grossly intactHEENT: normocephalic, atraumaticLUNGS: Unlabored breathing O2 Therapy: Room Air, 95% [id number]: Regular rate and rhythm as aboveABDOMEN: Soft, non-tender, non-distendedEXTREMITIES: FLORES, No deformities, No edemaSKIN: Skin color, texture, turgor normal, No rashes or lesionsASSESSMENT AND PLAN:Active Hospital Problems Diagnosis Date Noted- Obstructive sleep apnea 03/26/2018 Chronic- Diabetes ([facility]) 03/26/2018 Chronic- Nicotine use disorder, F17.2 03/25/2018- Obesity, Class III, BMI >= 40 03/25/2018- Malnutrition of moderate degree ([facility]) 03/25/2018- Anemia 03/24/2018- Atrial fibrillation with RVR ([facility]) 03/24/2018- Pulmonary embolism ([facility]) 03/24/2018- GI bleed 03/24/2018 Overview Note: Added automatically from request for surgery [id number] year old male with GIB, PE s/p IVC Filter, Left Pulm Effusion- mgmt per MICU- C-scope with GI today- plan for Left CT today after scopeAssessment and plan discussed with attending: Dr. GuzmanATURE: Santos Wen MD PATIENT NAME: Joel MatsonDATE: March 27, 2018 : 6:09 AM Pager: [phone] seen and now has tube in which we offered to do yesterday, butpulm wanted to wait till after today's testing.Will review cxr. Normal [facility] Protein, Body Fluidon 2017 Protein, Fluid 1.7 g/dl Normal [facility] Comment on above: Result Comment: Perf ormance characteristics of this assay have not been evaluated for bodyfluids. No reference range has been established. Test analyzed by theYolandaemewild's Marinette method. Performed By: #### T &S ####[place] [address] Protimeon 03-27-2018 INR Coag RelTime (PPP) 1.00 {INR} Normal [facility] Comment on above: Result Comment: Wang dard Therapy 2.0-3.0High Dose 2.5-3.5 Performed By: #### P T ####[place] [address] Prothrombin time (PT) Coag time (PPP) 10.6 s Normal 9.3-11.9 [facility] Comment on above: Performed By: #### P T ####[place] [address] BRIEF OP NOTon 03-26-2018 BRIEF OP NOT HNO ID: [id number] thor: Barbara Delucaervice: Vascular SurgeryAuthor Type: PhysicianType: Brief Op NoteFiled: 03/26/2018 12:46 PMNote Text:VASCULAR SURGERYPOST PROCEDURE NOTEDATE: 03/26/18NAME: Joel NannetteRN: [id number] ID: [id number] Diagnosis: PE, unable to anticoagulatePost Procedure Diagnosis: Same.Machine Veneer Repairer: Dr. Barbara Castillo (Primary)Procedure: insertion of edward IVC filterAnesthesia: LocalFindings: successfulEstimated Blood Loss: Minimal (Less Than 25 mL).Specimen: None.Complications: None. .Full report with procedural details to follow and will become availableunder Imaging Reports. Please contact for any questions or concerns.Barbara Castillo MD Normal [facility] Basic Panelon 03-26-2018 Creatinine 0.53 mg/dL Low 0.67-1.17 [facility] Comment on above: Performed By: #### L AC ####[place] [address] Anion gap 7 mmol/L Low 8-16 [facility] Comment on above: Performed By: #### L AC ####[place] [address] CO2 27 mmol/L Normal 21-32 [facility] Comment on above: Performed By: #### L AC ####[facility] [place] [address] Urea nitrogen 13 mg/dL Normal 7-18 [facility] Comment on above: Performed By: #### L AC ####[facility] [place] [address] Calcium 7.0 mg/dL Low 8.5-10.1 [facility] Comment on above: Performed By: #### L AC ####[facility] [place] [address] Glucose mass conc 189 mg/dL High 70-99 [facility] Comment on above: Performed By: #### L AC ####[place] [address] Chloride 108 mmol/L High 98-107 [facility] Comment on above: Performed By: #### L AC ####[place] [address] Potassium molar conc 3.2 mmol/L Low 3.5-5.1 [facility] Comment on above: Performed By: #### L AC ####[place] [address] Sodium 139 mmol/L Normal 136-145 [facility] Comment on above: Performed By: #### L AC ####[place] [address] CONSULTon 03-26-2018 CONSULT HNO ID: [id number] thor: Keli Ervine: Infectious DiseaseAuthor Type: PhysicianType: ConsultsFiled: 03/26/2018 3:33 PMNote Text:March 26, 2018 3:07 PMInfectious Disease Consult dictated #[id number].Imp:Loculated left pleural effusion, parapneumonic vs related to LLL PE.? malignancy?Hx testicular Ca Rx resection and radiationDMRec:Change zosyn to ceftriaxone and doxySend pleural fluid for fluid studies and cultures and cytologyRespiratory pcr panelUrine antigensSputum cultureKeli Laureano MD Normal [facility] CONSULT HNO ID: [id number] thor: Keli Ríos: Infectious DiseaseAuthor Type: PhysicianType: ConsultsFiled: 03/27/2018 9:35 AMNote Text:[facility] - ConsultationPATIENT NAME: ELROY MATSON: [id number] CSN: [id number] OF : 1965 SEX/AGE: M/52PATIENT TYPE: I HOSP SVC: PULM LOCATION: [id number] OF SERVICE: 03/26/2018INFECTIOUS DISEASE CONSULTTIME OF CONSULT: 3:17 p.m.HISTORY OF PRESENT ILLNESS: The patient is a 52-year-old man [facility],severe dyspnea, loculated left pleural effusion with left lower lobeinfiltrate and left lower lobe pulmonary embolism. He was noted to be inatrial fibrillation. He issuspected to have GI bleeding with maroon colored stools. He was startedon intravenous Zosyn in [place] and this was continued after transferhere. Infectious Disease consult was requested regarding possiblecomplicated or loculated left pleural effusion. He was admitted underthe Pulmonary Critical Care Service to the ICU. Vascular Surgery wasconsulted and has placed an IVC filter this afternoon. Thoracic Surgeryhas been consulted and is planning to place a chest tube tomorrow.Gastroenterology has also been consulted, he had an upper GI endoscopywith biopsy showing 3 small gastriculcers. He is apparently also to have colonoscopy tomorrow.He developed cough with shortness of breath and pleuritic left lower chestpain approximately 2 weeks previously. He was treated with antibioticsby his primary care physician including 4 injections on the 1st day and aweek of oralantibiotics, the name of which he does not know. He had partialimprovement, felt good enough that he attempted to return to work andwork for a few days, but then got progressive increase in shortness ofbreath along with chest pain. Hisphysician arranged some additional outpatient studies, but his dyspneaworsened to the point where his son had to drive him to the proceduresand eventually he was advised to go to the emergency room in [place]. ACT angiogram of the chest revealed left lower lobe infiltrate oratelectasis with an apparent partially loculated small to moderate leftpleural effusion and left lower lobe pulmonary embolism. He wastransferred here and has been admitted to the intensive care unit foradditional treatment.He did not recall significant fever, chills, or sweats. He did not haveany vomiting or choking spells before onset of the respiratory symptoms.He has not had any recent dental work. He has some dental problems, butno recentlyabscessed teeth. He did not have any syncopal episodes. He has nottraveled anywhere, nor been exposed to any ill people. His wifedeveloped bronchitis after he became sick. He has not had headache orsore throat. No sinus congestion. He did have some nausea after hebecame ill, but he did not vomit before. Nodiarrhea. No dysuria, urgency, or frequency. No soft tissue infection orabscess.PAST HISTORY: Diabetes, testicular cancer treated between 2002 to 2004with resection of both testicles and radiation for 6 months, he is on noongoingtherapy at this time. He has obesity, paroxysmal atrial fibrillation,obstructive sleep apnea.MEDICATIONS: Reviewed.HOME MEDICATIONS: Reviewed.ALLERGIES: No known allergies.SOCIAL HISTORY: Lives at home with and son. He uses snuff. Doesnot smoke. Alcohol use on weekends. No drug use.REVIEW OF SYSTEMS:Outlined above.PHYSICAL EXAMINATION:GENERAL: Obese man, lying flat in bed.VITAL SIGNS: Temperature is 36.6, blood pressure 132/81, pulse 77,respiration 19, O2 sat 98% to 99% on room air.HEENT: No skin rashes seen. Conjunctivae are unremarkable. Oral mucosais moist with no thrush. He is missing a number of teeth and has anumber of filled teeth with some decay and gingival disease, but noobvious abscesses. No submandibular or cervical adenopathy.LUNGS: Decreased breath sounds, left base lateral and posterior. Rightlung clear.HEART: Regular, systolic murmur in the left sternal border. No gallop.ABDOMEN: Soft, he has some mild nonfocal tenderness, which he attributesto the IVC procedure. No flank tenderness.EXTREMITIES: No distal emboli or joint effusions. Possibly trace lowerextremity edema.DIAGNOSTIC STUDIES: Chest x-ray done 2 days ago showed left-sidedeffusion with decreased aeration. CT abdomen and pelvis showed somecontrast in the distal ileum, transverse and ascending colon,diverticulosis without inflammation, some nodular change in the liverconcerning for cirrhosis, and the moderate leftpleural effusion. Ultrasound of the legs showed no DVT. Repeat chestx-ray yesterday. Moderate left pleural effusion and basilar airspacedisease,unchanged.He has had minimal microbiologic studies here and I am unable to tell ifhe has any micro studies at [place]. MRSA screen from the nose wasnegative. Cold agglutinins ordered and pending. CBC today shows whitecount of 6.1, hemoglobin 7.5, and platelets 107,000. Serum creatininehere is 0.53.IMPRESSION:1. Loculated left pleural effusion. Possibly parapneumonic versus relatedto left lower lobe pulmonary embolism. Question associated malignancy.2. Severe anemia, attributed to GI bleeding.3. History of testicular cancer, treated with resection and radiationtherapy. 4. Diabetes mellitus.5. Atrial fibrillation.6. Acute respiratory failure.PLAN: I would change from Zosyn to ceftriaxone plus doxycycline. Heshould have pleural fluid analysis, culture and cytology when he has thefluid drainedtomorrow. We will order respiratory PCR panel and urine antigens. Wewimarciano order a sputum culture, although I doubt we will obtain any. If hespikes a fever, I would do blood cultures, but if he is afebrile, I willnot do them as he has had antibiotics for several days.Thank you for this consult.Keli Laureano MDInfectious DiseaseGEB:modlD: 03/26/2018 15:33:44T: 03/26/2018 22:13:56Job #: [id number] Normal [facility] CONSULT HNO ID: [id number] thor: Janet Braun [facility] CenterAmaraervice: Thoracic SurgeryAuthor Type: PhysicianType: ConsultsFiled: 03/27/2018 7:10 PMNote Text:CONSULT: THORACIC SERVICESERVICE DATE: 03/26/2018SERVICE TIME: 1130REASON FOR CONSULT: Pleural effusionREQUESTING PHYSICIAN: CaliOCHSNER [facility] PH[facility]IAN: No primary care provider on file.SubjectiveMr. Matson is a 52 year old male who presents for cough and left chest painand dyspnea. He has had these symptoms for weeks, and was gettingtreatment from a PCP but his symptoms were worsening. He presented thenwith findings also of severe anemia and noted he had been having coffeeground emesis.CT findings at that time were positive for a LLL PE.He was admitted with the diagnoses of PNA, PE, GIB, treated on zosyn. EGDrevealed no active source. He is currently being prepped for acolonoscopy on Tuesday. In the mean time he has been having maroon stools,with a stable Hgb post transfusion on admission.FUNCTIONAL STATUS: IndependentNo past medical history on file.No past surgical history on file.No family history on file.Social HistorySubstance Use Topics- Smoking status: Not on file- Smokeless tobacco: Current User Types: Snuff Comment: 1 can per day- Alcohol use Yes Comment: weekendsPrescriptions Prior to Admission:COMPOUNDED PRESCRIPTION testosterone cream for testic CA Disp: Rfl: 0COMPOUNDED PRESCRIPTION glucophage dose not known Disp: Rfl: 0Exenatide 10 mcg/0.04 mL SUBCUTANEOUS PnIj Take one(1) tablet two(2) timesdaily. Disp: Rfl: 0COMPOUNDED PRESCRIPTION diabetic med, name/dose unknown Disp: Rfl: 0COMPOUNDED PRESCRIPTION lexapro, dose unknown Disp: Rfl: 0Current hospital medications:bisacodyl EC 10 mg tab(s) (DULCOLAX) 10 mg ORAL ONCEpolyethylene glycol 3350 255 g oral powder (MIRALAX, GLYCOLAX) 255 g ORALONCEpiperacillin-tazobactam 3.375 g in dextrose (iso-osmotic) 50 mL (ZOSYN)3.375 g INTRAVENOUS q [address] 40 mg tab(s) (PROTONIX) 40 mg ORAL DAILY (6 AM)potassium chloride 80-120 mEq oral liquid 80-120 mEq ORAL/FEEDING TUBE PRNpotassium chloride iv piggyback 20 mEq in sterile water 100 mL 20 mEqINTRAVENOUS PRNmagnesium sulfate in water 2 g in sterile water 50 ml 2 g INTRAVENOUS PRNsodium phosphate 45 mmol in NaCl 0.9% 250 mL 45 mmol INTRAVENOUS PRNcalcium gluconate 4 g in NaCl 0.9% 250 mL 4 g INTRAVENOUS PRNNaCl 0.9% iv infusion 100 mL/hr INTRAVENOUS CONTINUOUSdextrose 40 % 15 g 15 g ORAL PRNglucagon 1 mg injection (GLUCAGEN) 1 mg INTRAMUSCULAR PRNdextrose 50% in water 25 mL syringe 12.5 g INTRAVENOUS PRNinsulin regular human injection (short acting) (NovoLIN R,HumuLIN R)SUBCUTANEOUS q 6 Hondansetron (PF) 4 mg injection (ZOFRAN) 4 mg INTRAVENOUS q 6 H PRNiv contrast (radiology procedure) INTRAVENOUS DIRECTED PRNprochlorperazine 5 mg injection (COMPAZINE) 5 mg INTRAVENOUS q 6 H PRNAllergies As of Date: 03/24/2018(No Known Allergies)Fully Assessed 03/24/2018COMPLETE REVIEW OF SYSTEMS:GENERAL: No weight loss, malaise or feversRESPIRATORY: see HPICARDIOVASCULAR: left chest painGI: See HPIMUSCULOSKELETAL: Negative for joint pain or swelling, back pain or musclepainObjectivePHYSICAL EXAM:Physical Exam Performed:GENERAL: Alert, no distress, cooperativeLUNGS: diminished LLCARDIAC: Normal S1 and S2; no rubs, murmurs, or gallopsABDOMEN: Abdomen soft, non-tender, BS normal, No masses or organomegalyBP 115/59 Pulse 84 Temp (Src) 96.8 (Axillary) Resp 17 Ht 5' 8 (1.73m) Wt 273 lb 5.9 oz (124.0kg) SpO2 99% BMI 41.58 kg/(m2).DATA:Diagnostic tests reviewed for today's visit:Most recent labs and imaging results.Impression/Recommendation s52 YO male with loculated pleural effusion- would recommend bedside large bore chest tube. At the request of theMICU service this will be performed after his colonoscopy.- INR in [facility]/w Dr. GuzmanATURE: Jose Woods MD PATIENT NAME: Joel HiserDATE: March 26, 2018 : 10:59 AM PAGER: [phone] reviewed, case d/w resident and recommendation made for chest tubeinsertion on left, but pulmonary doesn't want it done until after scope onMonday! Will see patient tomorrow. Patient seen and films previouslrreviewed and chest tube now in place. Will follow. Normal [facility] CONSULT PROGon 03-26-2018 CONSULT PROG HNO ID: [id number] thor: Monica (Peoplesoft Analyst) JulianService: GastroenterologyAuthor Type: Nurse SpecialistType: Consult Progress NoteFiled: 03/26/2018 8:36 AMNote Text:GI CONSULT PROGRESS NOTESERVICE DATE: 03/26/2018SERVICE TIME: 8:31 AMCONSULTING SERVICE: GastroenterologySubjectiveINTERVA L HISTORY: Feeling better. Had 2 maroon stools since EGD. Had oneunit of PRBCs yesterday. Hgb 7.5 today.MEDICATIONS:Current hospital medications:pantoprazole DR 40 mg tab(s) (PROTONIX) 40 mg ORAL DAILY (6 AM)potassium chloride 80-120 mEq oral liquid 80-120 mEq ORAL/FEEDING TUBE PRNpotassium chloride iv piggyback 20 mEq in sterile water 100 mL 20 mEqINTRAVENOUS PRNmagnesium sulfate in water 2 g in sterile water 50 ml 2 g INTRAVENOUS PRNsodium phosphate 45 mmol in NaCl 0.9% 250 mL 45 mmol INTRAVENOUS PRNcalcium gluconate 4 g in NaCl 0.9% 250 mL 4 g INTRAVENOUS PRNNaCl 0.9% iv infusion 100 mL/hr INTRAVENOUS CONTINUOUSdextrose 40 % 15 g 15 g ORAL PRNglucagon 1 mg injection (GLUCAGEN) 1 mg INTRAMUSCULAR PRNdextrose 50% in water 25 mL syringe 12.5 g INTRAVENOUS PRNinsulin regular human injection (short acting) (NovoLIN R,HumuLIN R)SUBCUTANEOUS q 6 Hondansetron (PF) 4 mg injection (ZOFRAN) 4 mg INTRAVENOUS q 6 H PRNiv contrast (radiology procedure) INTRAVENOUS DIRECTED PRNprochlorperazine 5 mg injection (COMPAZINE) 5 mg INTRAVENOUS q 6 H PRNObjectivePHYSICAL EXAM:VITALS:BP (!) 107/44 Pulse 79 Temp 36.2 ?C (97.2 ?F) Resp 18 Ht 172.7 cm (5' 8 ) Wt 124 kg (273 lb 5.9 oz) SpO2 97% BMI 41.57kg/m?ABDOMEN: Soft, nondistended, nontender, bowel sounds present. No guarding,rebound or rigidity.GENERAL: Alert and oriented. No distressDATA:Diagnostic tests reviewed for today's visit:Most recent labs and imaging results.CBC, Coags, BMP, Mg, PhosRecent Labs 010 355 03/24/1816345WBC 6.14 -- -- -- 9.23* -- -- 8.91HB 7.5* 7.3* 8.1* < > 7.2* < > -- 4.7*HCT 23.0* -- -- -- 21.3* -- -- 15.3*PLT 107* -- -- -- 116* -- -- 146APTT -- -- -- -- -- -- 19.1* --NA 139 -- -- -- 139 -- -- 137K 3.2* -- -- -- 3.5 -- -- 3.8CHLOR 108* -- -- -- 108* -- -- 105CO2 27 -- -- -- 26 -- -- 27BUN 13 -- -- -- 18 -- -- 15CREAT 0.53* -- -- -- 0.53* -- -- 0.52*GLUC 189* -- -- -- 207* -- -- 310*CA 7.0* -- -- -- 7.1* -- -- 7.3*< > = values in this interval not displayed.CSF AND DilantinLiver Function, Amylase, AND LipaseRecent Labs 400 TPROT 4.8* --ALB 1.7* --ALT 18 --AST 19 --ALKPHOS 66 --TBILI 1.7* --LACT -- 1.1EGD - small gastric ulcers. No bleedingImpression/Recommendation s Anemia - acute normocytic. EGD showed no bleeding-Monitor Hgb/Hct - transfuse as needed- Monitor BMs for bleeding-- Plan colonoscopy tomorrow with Dr. Kang? Atrial fibrillation with RVR - amiodarone drip stopped - managed per primary team? Pulmonary embolism- acute. Unable to anticoagulate due to GI bleeding- Possible IVC filter- Vascular surgery following?Can continue clear liquids today. Will give 2 dulcolax tabs at 3 pm thenstart colon prep at 4 pm?GI will continue to followSIGNATURE: Monica Abel APRN.SQL SERVER DBA PATIENT NAME: Joel MatsonDATE: March 26, 2018 : 8:31 AM PAGER/CONTACT #: [phone] Normal [facility] Glucose Meteron 03-26-2018 Glucose mass conc 277 mg/dL High 70-99 [facility] Comment on above: Result Comment: RN N OTIFIED Performed By: #### L AC ####[address] [address] Glucose mass conc 240 mg/dL High 70- [facility] Comment on above: Result Comment: RN N OTIFIED Performed By: #### L AC ####[address] [address] Glucose mass conc 176 mg/dL High 70- [facility] Comment on above: Performed By: #### L AC ####[address] [address] Glucose mass conc 216 mg/dL High 70- [facility] Comment on above: Performed By: #### L AC ####[address] [address] Hemogramon 03-26-2018 Erythrocyte distribution width Auto Ratio (RBC) 18.4 % High 11.6-14.4 [facility] Comment on above: Performed By: #### L AC ####[address] [address] Erythrocytes (RBC) 2.55 mil/cmm Low 4.63-6.08 [facility] Comment on above: Performed By: #### L AC ####[address] [address] Hematocrit (HCT) 23.0 % Low 40.1-51.0 [facility] Comment on above: Performed By: #### L AC ####[address] [address] Hemoglobin mass conc (Bld) 7.5 g/dL Low 13.7-17.5 [facility] Comment on above: Performed By: #### L AC ####[address] [address] MCH 29.4 pg Normal 25.7-32.2 [facility] Comment on above: Performed By: #### L AC ####[facility] [place], [place] [address] MCHC mass conc (RBC) 32.6 % Normal 32.3-36.5 [facility] Comment on above: Performed By: #### L AC ####[place] [address] MCV 90.2 fL Normal 83.2-95.6 [facility] Comment on above: Performed By: #### L AC ####[place] [address] Nucleated erythrocytes 0.10 thou/cmm High 0.00-0.01 [facility] Comment on above: Performed By: #### L AC ####[place] [address] Nucleated RBC % 1.6 % High 0.0-0.2 [facility] Comment on above: Performed By: #### L AC ####[place] [address] Platelet mean volume (PMV) 9.2 fL Normal 8.7-12.0 [facility] Comment on above: Performed By: #### L AC ####[place] [address] Platelets 107 thou/cmm Low 141-365 [facility] Comment on above: Performed By: #### L AC ####[place] [address] RDW SD 48.0 fl High 36.1-45.8 [facility] Comment on above: Performed By: #### L AC ####[place] [address] WBC (Leukocytes) 6.14 thou/cmm Normal 4.23-9.07 [facility] Comment on above: Performed By: #### L AC ####[place] [address] Hgbon 03-26-2018 Hemoglobin mass conc (Bld) 7.4 g/dL Low 13.7-17.5 [facility] Comment on above: Performed By: #### L AC ####[place] [address] Legionella Ag, Urineon 03-26 Legionella Ag, Urine [facility]umptive negative for L. pneumophilia serogroup 1 antigenin urine, suggesting no recent or current infection.Infection due to Legionella cannot be ruled out since otherserogroups and species may cause disease, antigen may not bepresent in urine in early infection, and the level of antigenpresent in the urine may be below the detection limit of thetest. Normal [facility] Comment on above: Performed By: #### L EGAG ####[place] [address] MDRD GFRon 03-26-2018 eGFR (non-black) mL/min/{1.73_m2} Normal >60mL/m in/ 1.73m2 [facility] Comment on above: Result Comment: If t he patient is , multiply the result by 1.210. Performed By: #### L AC ####[place] [address] Misc. Send Outon 03-26-2018 Lab Name/Address See below Normal [facility] Comment on above: Result Comment: Test ing performed at [address] [place] [address] Performed By: #### T &S ####[place] [address] Test Name resp pcr panel Normal [facility] Comment on above: Performed By: #### T &S ####[place] [address] NURSING PROGon 03-26-2018 NURSING PROG HNO ID: [id number] Author: Cordelia (Rn) INEZ Luz Service: ADT-MICU Author Type: Registered Nurse Type: Nursing Progress Note Filed: 03/26/2018 2:16 PM Note Text: D/w Dr Castillo via phone, 2 hrs Bedrest Normal [facility] PLACEMENT IVC FILTER RAD Son 03-26-2018 PLACEMENT IVC FILTER RAD S Performed at [facility] APPROVED BY: BARBARA CASTILLO MD EXAM [...] appropriate prep agent for cutaneous antisepsis were utilized and maintained during the procedure.Risks benefits and alternatives were splinted the patient prior to procedure and he agreed. Risks included but were not limited to bleeding, infection, hematoma, inability to remove, caval thrombosis, perforation, migration, fracture, contrast nephropathy.Procedure performed by Barbara Castillo MD.Ultrasound guidance was utilized to access the left common femoral vein. Under ultrasound guidance a micropuncture needle was passed into the vein and a micropuncture wire was passed and then micropuncture sheath and dilator passed over this. A 5 [place]ian sheath is placed. A venogram was performed. The [place] IVC filter was placed just below the bilateral renal veins and deployed successfully. Repeat venogram confirm placement. The completion the case catheters wires removed and pressure is held. FINDINGS:Successful placement of [place] IVC filter.Patent left common femoral vein IMPRESSION:Successful placement of [place] IVC filter. Contrast and radiation not recorded. Normal [facility] PROGRESSon 03-26-2018 PROGRESS HNO ID: [id number] thor: Agustín McqueenpService: Critical CareAuthor Type: PhysicianType: Progress NotesFiled: 03/26/2018 1:37 PMNote Text: Attestation signed by David Cerrato at 03/26/2018 6:00 [facility] STAFF PHYSICIAN NOTE OF PERSONAL INVOLVEMENT IN CAREI have reviewed the progress note obtained and documented by the resident and Ipersonally participated in the quintana components. I have discussed the case andmanagement of the patient's care. The following comments revise or confirmrelevant quintana components of the note.52/M with PMHx of DM and ANDREW (on CPAP) developed cough with sputum and leftchest pain about 2-3 weeks ago. He was treated with shots (2 in each hip) inhis PCPs office and then antibiotics (small blue pills twice a day for about 10days). His symptoms got better but over the past week has developed worseningdyspnea and left chest pain. He had a near syncopal event today withincontinence (bladder and bowel) on going to the bathroom so presented to theER. Investigation in the ER showed severe anemia (Hb 4.5, normocytic), CT chestshowed small to mod left loculated pleural effusion, left basilar atelectasisvs consolidation and LLL PE. He has been having some nausea and vomiting overthe past few days without hematemesis or coffee ground emesis. Stool has beendark brown without obvious blood. No fever or chills. ?Was also found to be in Afib and was started on amiodarone. Currently in NSR.Amiodarone was stopped 03/25/18.EGD on 03/25/18 showed 3 small non bleeding gastric ulcers, biopsied. On PPI.Had dark bloody movements yesterday afternoon, one so far today. Breathingimproved but still with pleuritic pain and breathing heavy. 102/58 77/min 96% RASitting in chair, pleasantDecreased breath sounds in basesRegular rhythm, NSR s1s2 normalabd soft, nt ndNo c/c/eCXR: persistent moderate left pleural effusionHb 7.5 (7.3 yesterday pm)IMPRESSION:?Severe anemia secondary to GIB?EGD showed 3 non bleeding small gastric ulcers, biopsied?Acute hypoxic respiratory failure: improved?Left loculated small to moderate pleural effusion with adjacentatelectasis/consolidation with pleuritic chest pain and dyspnea?Recently treated for pneumonia x 10 days?LLL PE?Paroxysmal Afib: in NSR?ANDREW on CPAP?DM?obesity?PLAN:?Blood transfusion, keep Hb>7?GI input appreciated, colonoscopy tomorrow?D/W Vascular surgery, Dr Castillo. Will need IVC filter due to ongoing GIB andother complications/issues which will need intervention?D/w patient, agrees?Anticoagulation depending on work up and when ok with GI?CPAP QHS?Thoracic surgery consult for chest tube/pigtail placement?ID consult for opinion on antibiotics for treated/partially treatedcomplicated effusion?Start zosyn?LE DVT: negative for clot?SCDs?ICU monitoringPatient/Family Updated: yes. Agreeable with plan.SIGNATURE: NATALIYA Turner INSTITUTEPAGER:[id number] of SERVICE: March 26, 2018TIME of SERVICE: 10:03 AM MICU - PROGRESS NOTESERVICE DATE: 03/26/2018SERVICE TIME: 12:29 PMAdmission Date: 03/24/2018AGE: 52 year oldLOS: 2 daysSubjectiveREASON FOR ICU ADMISSION: GI Bleeding and Pneumonia2 small bowel movements with blood overnight. EGD done yesterday showedno source of bleeding. Plan for colonoscopy Tuesday. Patient admits tosome SOB. Admits to left chest pain with breathing. Cough is productive. Denies abdominal pain, nausea or vomiting. Tolerating diet.ObjectivePROBLEMS: ACTIVE PROBLEM LISTAnemiaAtrial Fibrillation With Rvr (Hcc)Pulmonary Embolism (Hcc)Nicotine use disorder, F17.2Obesity, Class III, BMI >= 40Malnutrition of Moderate Degree (Hcc)GI BleedDiabetes (Hcc)Obstructive Sleep ApneaPAST MEDICAL HISTORYDiagnosis Date- Testicular cancer (HCC) 2002PA SURGICAL HISTORYProcedure Laterality Date- ORCHIECTOMY SIMPLE Bilateral 2002 testicular cancerSocial History Marital status: Spouse name: Years of education: Number of children:Social History Main Topics Smokeless tobacco: Current User Types: Snuff Comment: 1 can per day Alcohol use: Yes Comment: weekends Drug use: NoVITAL SIGNS (last 24hrs min/max):Temp Av.5 ?C (97.7 ?F) Min: 36 ?C (96.8 ?F) Max: 37 ?C (98.6 ?F)Pulse Av.6 Min: 69 Max: 85No Data RecordedCuff BP Min: 93/58 Max: 122/72Pain Score: 0/10Vital signs reviewed.BP 119/78 Pulse 78 Temp (Src) 97.9 (Axillary) Resp 20 Ht 5' 8 (1.73m) Wt 273 lb 5.9 oz (124.0kg) SpO2 100% BMI 41.58 kg/(m2).Temp (24hrs), Av.5 ?C (97.7 ?F), Min:36 ?C (96.8 ?F), Max:37 ?C (98.6?F)NET FLUID BALANCEIntake/Output Summary (Last 24 hours) at 03/26/18 1229Last data filed at 03/26/18 1139 Gross per 24 hourIntake 5061 mlOutput 1350 mlNet 3711 mlMEDICATIONSCurrent Facility-Administered Medications:[MAR Hold due to Transfer] bisacodyl EC 10 mg tab(s) (DULCOLAX) 10 mg ORALONCE[MAR Hold due to Transfer] polyethylene glycol 3350 255 g oral powder(MIRALAX, GLYCOLAX) 255 g ORAL ONCE[MAR Hold due to Transfer] piperacillin-tazobactam 3.375 g in dextrose(iso-osmotic) 50 mL (ZOSYN) 3.375 g INTRAVENOUS q 6 H[MAR Hold due to Transfer] pantoprazole DR 40 mg tab(s) (PROTONIX) 40 mgORAL DAILY (6 AM)[JAN Hold due to Transfer] potassium chloride 80-120 mEq oral -915 mEq ORAL/FEEDING TUBE PRN[JAN Hold due to Transfer] potassium chloride iv piggyback 20 mEq insterile water 100 mL 20 mEq INTRAVENOUS PRN[MAR Hold due to Transfer] magnesium sulfate in water 2 g in sterile water50 ml 2 g INTRAVENOUS PRN[MAR Hold due to Transfer] sodium phosphate 45 mmol in NaCl 0.9% 250 mL 45mmol INTRAVENOUS PRN[MAR Hold due to Transfer] calcium gluconate 4 g in NaCl 0.9% 250 mL 4 gINTRAVENOUS PRN[MAR Hold due to Transfer] NaCl 0.9% iv infusion 100 mL/hr INTRAVENOUSCONTINUOUS[MAR Hold due to Transfer] dextrose 40 % 15 g 15 g ORAL PRNOr[MAR Hold due to Transfer] glucagon 1 mg injection (GLUCAGEN) 1 mgINTRAMUSCULAR PRNOr[MAR Hold due to Transfer] dextrose 50% in water 25 mL syringe 12.5 gINTRAVENOUS PRN[MAR Hold due to Transfer] insulin regular human injection (short acting)(NovoLIN R,HumuLIN R) SUBCUTANEOUS q 6 H[MAR Hold due to Transfer] ondansetron (PF) 4 mg injection (ZOFRAN) 4 mgINTRAVENOUS q 6 H PRN[MAR Hold due to Transfer] iv contrast (radiology procedure) INTRAVENOUSAS DIRECTED PRN[MAR Hold due to Transfer] prochlorperazine 5 mg injection (COMPAZINE) 5mg INTRAVENOUS q 6 H PRNLines, Drains, and Airways Line Peripheral 03/24/18 Admission to Hospital Right Antecubital 20 Gauge 2daysPHYSICAL EXAM PERFORMED:General: Awake alert. Sitting in chair eating breakfastCardiovascular: RRR, no murmurRespiratory: Diminished breath sounds at bases.Abdomen: Soft, Nontender and Positive bowel soundsExtremities: No pitting edemaNeurologic: Awake, oriented, Alert, Follows commands and Moving allextremitiesRespiratory/Nursing Documentation:O2 Therapy: Room Air (03/26/18 1139)HEMODYNAMIC DATA: ReviewedNUTRITION:Enteral Feeds: YesClear liquidsDATA: Diagnostic tests reviewed for today's visit, films/specimens werepersonally reviewed by me:Most recent labs and imaging results.LABS:Recent Labs 600 400WBC 6.14 < > -- --RBC 2.55* < > -- --HB 7.5* < > -- --HCT 23.0* < > -- --MCV 90.2 < > -- --PLT 107* < > -- --GLUC 189* < > -- --BUN 13 < > -- --CREAT 0.53* < > -- --NA 139 < > -- --K 3.2* < > -- --CHLOR 108* < > -- --CO2 27 < > -- --TPROT -- -- -- 4.8*ALB -- -- -- 1.7*CA 7.0* < > -- --ALKPHOS -- -- -- 66TBILI -- -- -- 1.7*AST -- -- -- 19ALT -- -- -- 18APTT -- -- 19.1* --< > = values in this interval not displayed.ABG:Invalid input(s): [id number]/PlanGI bleed-monitor HgB, transfuse <7-EGD yesterday did not reveal bleeding-GI following-Colonoscopy tomorrow-Protonix daily-IV fluidsAcute respiratory failure-O2 NC wean as tolerated.Pneumonia with loculated pleural effusion-Chest surgery consult for chest tube-continue ZosynParoxsymal A.fib-rate improved with amiodaroneH/O PE/DVT-anticoagulation contraindicated due to GI bleed-Vascular surgery consult to IVF filterSIGNATURE: Agustín Lawrence DO PATIENT NAME: Joel MatsonDATE: March 26, 2018 : 12:[address] [facility] PROGRESS HNO ID: [id number] thor: Barbara Bojorquez: Vascular SurgeryAuthor Type: PhysicianType: Progress NotesFiled: 03/26/2018 11:12 AMNote Text:Pt seen and examined. D/W Dr Tellez. Pt with no source from EGD.Likely source from bowel and pt unlikely to be anticoagulated. Inaddition, pt will need treatment of his L plearual effusion.Pt with current PE, unable to be anticoagulated secondary to bleedingrisk. Will place IVC filter. Pt agreeable to procedure after R/B/Aexplained to him.Barbara Castillo MD [facility] PROGRESS HNO ID: [id number] thor: Jose (Felton) Romanice: Vascular SurgeryAuthor Type: ResidentType: Progress NotesFiled: 03/26/2018 11:10 AMNote Text: Attestation signed by Barbara Castillo at 03/26/2018 11:22 AMI saw and evaluated the patient. Discussed with the resident and agree withresident's findings and plan as documented in the resident's note. I spent 15minutes in the visit, with more than 50% of the total [id number]-gh-cfsv time of thevisit in counseling / coordination of care.Barbara Castillo MD VASCULAR SURGERY PROGRESS NOTESERVICE DATE: 03/26/2018SubjectiveSUBJECTIVE:Mariaelena rose BM overnight.Denies N/V/CP/SOBDiet: DIET LIQUIDDIET NPOObjectiveOBJECTIVE:Vitals:Temp (24hrs), Av.5 ?C (97.7 ?F), Min:36 ?C (96.8 ?F), Max:37 ?C (98.6?F)BP 115/59 Pulse 84 Temp 36 ?C (96.8 ?F) Resp 17 Ht 172.7 cm(5' 8 ) Wt 124 kg (273 lb 5.9 oz) SpO2 99% BMI 41.57 kg/m?O2 [facility]/25/18 07 - 03/26/18 0659 03/26/18 07 - 03/27/18 0659Shift 7959-7839 9717-8930 8942-6069 24 Hour Total 7895-6970 4405-89738858-2483 24 Hour TotalINTAKE PO 833 065 0047 1080 1080 PO 953 311 8446 1080 1080 IV 610.8 505 026 4598.8 815 815 NS 0.9% 550 680 551 2646 415 415 Potassium IVPB 400 400 Amiodarone 60.8 60.8 Blood Products 350 350 PRBC Intake (mL) 350 350 Shift Total 1420.8 8226 164 4726.8 1895 1895OUTPUT Urine 500 332 195 6420 0 0 Void (ml) 500 942 902 8371 0 0 Urine Incontinence/Not Saved 1 x 1 x 2 x 2 x # of BMs Stool Incontinence 2 x 2 x Number of BMs 0 x 0 x 0 x 0 x 0 x Shift Total 500 959 612 7389 0 0Weight (kg) 124.4 124.4 124 124 124 124 124 124MEDICATIONSCurrent Facility-Administered Medications:bisacodyl EC 10 mg tab(s) (DULCOLAX) 10 mg ORAL ONCEpiperacillin-tazobactam 3.375 g in dextrose (iso-osmotic) 50 mL (ZOSYN)3.375 g INTRAVENOUS q [address] 40 mg tab(s) (PROTONIX) 40 mg ORAL DAILY (6 AM)potassium chloride 80-120 mEq oral liquid 80-120 mEq ORAL/FEEDING TUBE PRNpotassium chloride iv piggyback 20 mEq in sterile water 100 mL 20 mEqINTRAVENOUS PRNmagnesium sulfate in water 2 g in sterile water 50 ml 2 g INTRAVENOUS PRNsodium phosphate 45 mmol in NaCl 0.9% 250 mL 45 mmol INTRAVENOUS PRNcalcium gluconate 4 g in NaCl 0.9% 250 mL 4 g INTRAVENOUS PRNNaCl 0.9% iv infusion 100 mL/hr INTRAVENOUS CONTINUOUSdextrose 40 % 15 g 15 g ORAL PRNOrglucagon 1 mg injection (GLUCAGEN) 1 mg INTRAMUSCULAR PRNOrdextrose 50% in water 25 mL syringe 12.5 g INTRAVENOUS PRNinsulin regular human injection (short acting) (NovoLIN R,HumuLIN R)SUBCUTANEOUS q 6 Hondansetron (PF) 4 mg injection (ZOFRAN) 4 mg INTRAVENOUS q 6 H PRNiv contrast (radiology procedure) INTRAVENOUS DIRECTED PRNprochlorperazine 5 mg injection (COMPAZINE) 5 mg INTRAVENOUS q 6 H PRNLabs:Recent Labs 03/25/1820345NA 139 -- -- 139 -- -- 137K 3.2* -- -- 3.5 -- -- 3.8CHLOR 108* -- -- 108* -- -- 105CO2 27 -- -- 26 -- -- 27BUN 13 -- -- 18 -- -- 15CREAT 0.53* -- -- 0.53* -- -- 0.52*GLUC 189* -- -- 207* -- -- 310*ANION 7* -- -- 9 -- -- 9CA 7.0* -- -- 7.1* -- -- 7.3*ALB -- -- -- -- -- 1.7* --AST -- -- -- -- -- 19 --ALT -- -- -- -- -- 18 --ALKPHOS -- -- -- -- -- 66 --TBILI -- -- -- -- -- 1.7* --WBC 6.14 -- -- 9.23* -- -- 8.91HB 7.5* 7.3* < > 7.2* < > -- 4.7*HCT 23.0* -- -- 21.3* -- -- 15.3*PLT 107* -- -- 116* -- -- 146LACT -- -- -- -- -- -- 1.1< > = values in this interval not displayed.Exam:GENERAL: Alert, no distress, cooperativeLUNGS: Unlabored breathing on O2 Therapy: RACARDIAC: rate and rhythm as above,EXTREMITIES: FLORES, no edema?ASSESSMENT AND PLAN:Active Hospital Problems Diagnosis Date Noted- Obstructive sleep apnea 03/26/2018 Chronic- Diabetes ([facility]) 03/26/2018 Chronic- Nicotine use disorder, F17.2 03/25/2018- Obesity, Class III, BMI >= 40 03/25/2018- Malnutrition of moderate degree ([facility]) 03/25/2018- Anemia 03/24/2018- Atrial fibrillation with RVR ([facility]) 03/24/2018- Pulmonary embolism ([facility]) 03/24/2018- GI bleed 03/24/2018 Overview Note: Added automatically from request for surgery [id number] year old male with PE and GIB- continued need for IVCF. Plan per MICU team and patient are to proceedwith filter. Will place today.Assessment and plan discussed with attending: Reese: Jose Woods MD PATIENT NAME: Joel MatsonDATE: March 26, 2018 : 11:08 AM Pager: [phone]: [phone] Normal [facility] Strep pneumoniae Agon 2017 Strep pneumoniae Ag Test performed at [facility] Positive for pneumococcal pneumonia Normal [facility] Comment on above: Performed By: #### S PNAG ####[place] [address] BRIEF OP NOTon 03-25-2018 BRIEF OP NOT HNO ID: [id number] thor: Holger Rogerservice: GastroenterologyAuthor Type: PhysicianType: Brief Op NoteFiled: 03/25/2018 11:37 AMNote Text:BRIEF OPERATIVE / PROCEDURE NOTELOG ID: * No surgery found *SURGERY/PROCEDURE DATE:INCISION/PROCEDURE START TIME:INCISION CLOSE/PROCEDURE END TIME:SURGEON(S)/PROCEDURALIST(S) AND SUBSTATION OPERATOR HELPER GENERATION(S):* Surgery not found Surgery not found *PROCEDURE(S): EGD +/- Dilatation and BiopsyANESTHESIA: Versed 3 mg, Fentanyl 50 mcg, Cetacaine sprayFINDINGS: 3 small gastric ulcers - bx'dNo blood or stigmata of bleeding seenESTIMATED BLOOD LOSS: NoneSPECIMENS: as aboveCOMPLICATIONS: NonePRE-OP/PRE-PROCEDURE DIAGNOSIS: GI bleedPOST-OP/POST-PROCEDURE DIAGNOSIS: as aboveDaily PPIColonoscopy h/hDict #: [id number]: Holger Ruiz MD PATIENT NAME: Joel MatsonDATE: March 25, 2018 : 11:32 AM PAGER/CONTACT #: Normal [facility] Basic Panelon 03-25-2018 Creatinine 0.53 mg/dL Low 0.67-1.17 [facility] Comment on above: Performed By: #### G FR ####[facility] [place] [address] Anion gap 9 mmol/L Normal 8-16 [facility] Comment on above: Performed By: #### G FR ####[place] [address] CO2 26 mmol/L Normal 21-32 [facility] Comment on above: Performed By: #### G FR ####[place] [address] Glucose mass conc 207 mg/dL High 70-99 [facility] Comment on above: Performed By: #### G FR ####[facility] [place], [place] [address] Urea nitrogen 18 mg/dL Normal 7-18 [facility] Comment on above: Performed By: #### G FR ####[facility] [place], [place] [address] Calcium 7.1 mg/dL Low 8.5-10.1 [facility] Comment on above: Performed By: #### G FR ####[facility] [place] [address] Chloride 108 mmol/L High 98-107 [facility] Comment on above: Performed By: #### G FR ####[facility] [place] [address] Potassium molar conc 3.5 mmol/L Normal 3.5-5.1 [facility] Comment on above: Performed By: #### G FR ####[facility] [place] [address] Sodium 139 mmol/L Normal 136-145 [facility] Comment on above: Performed By: #### G FR ####[facility] [place] [address] CHEST 1 VIEWon 03-25-2018 Protein Performed at [facility] APPROVED BY: Dorian Ledesma MD EXAMINATION: CHEST RADIOGRAPH (SINGLE VIEW AP OR PA) Clinical History: Pneumonia, complicatedM: [id number]: 03/24/2019 RESULT: Lines, tubes, and devices: None. Multiple leads and wires overlie the chest. Lungs and pleura: Moderate left-sided pleural effusion and associated left basilar airspace disease, similar. Right lung remains grossly clear. No pneumothorax. Cardiomediastinal silhouette: Stable. Heart size is not grossly enlarged. Other: No acute bony abnormality. IMPRESSION: Moderate left pleural effusion and associated left basilar airspace disease, not significantly changed. Normal [facility] CONSULTon 03-25-2018 CONSULT HNO ID: [id number] thor: Monica (Peoplesoft Analyst) JulianService: GastroenterologyAuthor Type: Nurse SpecialistType: ConsultsFiled: 03/25/2018 10:15 AMNote Text:INITIAL CONSULT GASTROENTEROLOGYSERVICE DATE: 03/25/2018SERVICE TIME: 10:03 AMConsulting Service: Critical CareOpinion/advice regarding: GI bleedSubjectiveHPI: This is a 52 year old male who presents with chest pain, cough andshortness of breath that has worsened over the last weeks. He also had anear syncopal event while using the bathroom on the day of presentation.His Hgb on presentation was 4.7 and he had two dark bloody stools sincepresentation. GI was consulted for evaluation of GI bleeding.No past medical history on file.No past surgical history on file.No family history on file.Social HistorySubstance Use Topics- Smoking status: Not on file- Smokeless tobacco: Current User Types: Snuff Comment: 1 can per day- Alcohol use Yes Comment: weekendsMEDICATIONS:Prior to Admission Medications:COMPOUNDED PRESCRIPTION testosterone cream for testic CACOMPOUNDED PRESCRIPTION glucophage dose not knownExenatide 10 mcg/0.04 mL SUBCUTANEOUS PnIj Take one(1) tablet two(2) timesdaily.COMPOUNDED PRESCRIPTION diabetic med, name/dose unknownCOMPOUNDED PRESCRIPTION lexapro, dose unknownCurrent hospital medications:potassium chloride 80-120 mEq oral liquid 80-120 mEq ORAL/FEEDING TUBE PRNpotassium chloride iv piggyback 20 mEq in sterile water 100 mL 20 mEqINTRAVENOUS PRNmagnesium sulfate in water 2 g in sterile water 50 ml 2 g INTRAVENOUS PRNsodium phosphate 45 mmol in NaCl 0.9% 250 mL 45 mmol INTRAVENOUS PRNcalcium gluconate 4 g in NaCl 0.9% 250 mL 4 g INTRAVENOUS PRNNaCl 0.9% iv infusion 100 mL/hr INTRAVENOUS CONTINUOUSdextrose 40 % 15 g 15 g ORAL PRNglucagon 1 mg injection (GLUCAGEN) 1 mg INTRAMUSCULAR PRNdextrose 50% in water 25 mL syringe 12.5 g INTRAVENOUS PRNinsulin regular human injection (short acting) (NovoLIN R,HumuLIN R)SUBCUTANEOUS q 6 Hondansetron (PF) 4 mg injection (ZOFRAN) 4 mg INTRAVENOUS q 6 H PRNamiodarone 360 mg in D5W 200 mL (NEXTERONE) 1 mg/min INTRAVENOUSCONTINUOUSiv contrast (radiology procedure) INTRAVENOUS DIRECTED PRNprochlorperazine 5 mg injection (COMPAZINE) 5 mg INTRAVENOUS q 6 H PRNALLERGIESNo Known AllergiesGI SPECIFIC REVIEW OF SYSTEMS:Positive for nausea, vomiting, bright red blood per rectumNegative for dysphagia, heartburn, acid reflux, hematemesis, melenaNegative for decreased appetite, decreased oral intakeNegative for change in weightNo alteration in bowel habitsOTHER ROS:Negative for fever, night sweats, sleep problems, mood or depression.PAIN ASSESSMENT: Negative for pain, history of chronic pain, or currenttreatment for a chronic pain condition.GENERAL: No weight loss, malaise or feversHEENT: Negative for frequent or significant headaches, No changes inhearing or vision, no nose bleeds or other nasal problemsNECK: Negative for lumps, goiter, pain and significant neck swellingRESPIRATORY: Cough; moist, Shortness of breathCARDIOVASCULAR: Chest painGU: No history of dysuria, frequency or incontinenceMUSCULOSKELETAL: Negative for joint pain or swelling, back pain or musclepainSKIN: Negative for lesions, rash, and itchingPSYCH: Negative for sleep disturbance, mood disorder and recentpsychosocial stressorsHEMATOLOGY/LYMPHOLOGY: Negative for prolonged bleeding, bruising easily orswollen nodesENDOCRINE: Negative for cold or heat intolerance, polyuria, polydipsia andgoiterNEURO: No history of headaches, syncope, paralysis, seizures or tremorsObjectivePHYSICAL EXAM:BP 94/50 Pulse 78 Temp 36 ?C (96.8 ?F) Resp 14 Ht 172.7 cm (5'8 ) Wt 124.4 kg (274 lb 4 oz) SpO2 99% BMI 41.70 kg/m?GENERAL- AAO x 3, no distressHEENT: Moist mucus membranes. Tongue pink and midlineLUNGS: Clear to auscultation bilaterallyCARDIAC: S1, S2 heard. Heart rate regularABDOMEN: Soft, non-tender without guarding or rigidity, normal bowelsoundsEXTREMITIES: No pedal edemaDATA:Diagnostic Tests Reviewed for Today's Visit:Most recent labs and imaging results.CBC, Coags, BMP, Mg, PhosRecent Labs 03/25/18025 03/24/1813WBC -- 9.23* -- -- 8.91HB 6.5* 7.2* 6.3* -- 4.7*HCT -- 21.3* -- -- 15.3*PLT -- 116* -- -- 146APTT -- -- -- 19.1* --NA -- 139 -- -- 137K -- 3.5 -- -- 3.8CHLOR -- 108* -- -- 105CO2 -- 26 -- -- 27BUN -- 18 -- -- 15CREAT -- 0.53* -- -- 0.52*GLUC -- 207* -- -- 310*CA -- 7.1* -- -- 7.3*CSF AND DilantinLiver Function, Amylase, AND LipaseRecent Labs 400 [id number] 4.8* --ALB 1.7* --ALT 18 --AST 19 --ALKPHOS 66 --TBILI 1.7* --LACT -- 1.1LD total - 185Haptoglobin - 153CT abdomen - nodular liver, cholelithiasis, no dilated bowel. Colonicdiverticulosis. Pleural effusionImpression/Recommendation s Anemia - acute normocytic. Had two bloody bowel movements today.Reported episodic bright red blood per rectum at home-Monitor Hgb/Hct - transfuse as needed- Monitor BMs for bleeding- Consider bleeding scan for continued episodes of rectal bleeding- Plan EGD today with Dr. Ruiz- May need colonoscopy depending on results of EGD Atrial fibrillation with RVR - on Amiodarone drip- managed per primary team Pulmonary embolism- acute. Unable to anticoagulate due to GI bleeding- Possible IVC filter- Vascular surgery followingPlan EGD with Dr. Ruiz. Discussed with patient and he is in agreementGI will continue to followThank you for the consultSIGNATURE: Monica Abel APRN.SQL SERVER DBA PATIENT NAME: Joel HiserDATE: March 25, 2018 : 10:02 AM PAGER/CONTACT #: [phone] [facility] CONSULT HNO ID: [id number] thor: Earl (Res) MikeService: Vascular SurgeryAuthor Type: ResidentType: ConsultsFiled: 03/25/2018 9:08 AMNote Text: Attestation signed by Barbara Castillo at 03/25/2018 9:23 AMI saw and evaluated the patient. Discussed with the resident and agree withresident's findings and plan as documented in the resident's note.D/W pt need for filter. Pt with PE, unable to anticoagulate secondary to GIbleeding while on heparin. In addition, pt may need thoracic intervention.Request made for IVC filter. R/B/A explained including bleeding, infection,hematoma, caval thrombosis, migration and perforation. Also discussed the needto have this removed within a year. The pt would like to discuss this with hisfamily. As the pt had an US of his LE that were negative, the pt has low riskof an event happening while he considers his options. Will check back with ptlater.Barbara Castillo MD Vascular Consult NoteSERVICE DATE: 03/25/2018SubjectiveSUBJECTIVE:Pt presented with PE from unknown Source. In addition pt is having gibleeding from unknown source - initial Hb 4.5 in ED. Patient is currentlyunable to be anticoagulated. Primary team requesting filter for possiblelower ext source.Denies N/V/CP/SOBDiet: DIET NPOObjectiveOBJECTIVE:Vitals:BP 95/55 Pulse 74 Temp (Src) 96.6 (Axillary) Resp 13 Ht 5' 8 (1.73m) Wt 274 lb 4 oz (124.4kg) SpO2 96% BMI 41.71 kg/(m2).Temp (24hrs), Av.1 ?C (98.8 ?F), Min:35.8 ?C (96.4 ?F), Max:38.1 ?C(100.6 ?F)O2 Therapy: Nasal CannulaIANDO:Date 03/24/18 0700 - 03/25/18 0659 03/25/18 0700 - 03/26/18 0659Shift 2392-9441 6863-8228 8881-7553 24 Hour Total 3610-3947 1912-23245925-7382 24 Hour TotalINTAKE IV 1200.9 958.9 2159.8 228.7 228.7 NS 0.9% 152 195 6779 196 196 Amiodarone 416.9 134.9 551.8 32.7 32.7 Blood Products 937 937 PRBC Intake (mL) 934 934 Packed Red Blood Cells Number of Units 3 3 Shift Total 2137.9 958.9 3096.8 228.7 228.7OUTPUT Urine 400 500 0 900 Void (ml) 400 500 0 900 Urine Incontinence/Not Saved 1 x 1 x 1 x 1 x # of BMs Stool Incontinence 1 x 1 x Number of BMs 0 x 1 x 1 x Shift Total 400 500 0 900Weight (kg) 120.1 120.1 124.4 124.4 124.4 124.4 124.4 124.4MEDICATIONSCurrent Facility-Administered Medications:potassium chloride 80-120 mEq oral liquid 80-120 mEq ORAL/FEEDING TUBE PRNpotassium chloride iv piggyback 20 mEq in sterile water 100 mL 20 mEqINTRAVENOUS PRNmagnesium sulfate in water 2 g in sterile water 50 ml 2 g INTRAVENOUS PRNsodium phosphate 45 mmol in NaCl 0.9% 250 mL 45 mmol INTRAVENOUS PRNcalcium gluconate 4 g in NaCl 0.9% 250 mL 4 g INTRAVENOUS PRNNaCl 0.9% iv infusion 100 mL/hr INTRAVENOUS CONTINUOUSdextrose 40 % 15 g 15 g ORAL PRNOrglucagon 1 mg injection (GLUCAGEN) 1 mg INTRAMUSCULAR PRNOrdextrose 50% in water 25 mL syringe 12.5 g INTRAVENOUS PRNinsulin regular human injection (short acting) (NovoLIN R,HumuLIN R)SUBCUTANEOUS q 6 Hondansetron (PF) 4 mg injection (ZOFRAN) 4 mg INTRAVENOUS q 6 H PRNamiodarone 360 mg in D5W 200 mL (NEXTERONE) 1 mg/min INTRAVENOUSCONTINUOUSiv contrast (radiology procedure) INTRAVENOUS DIRECTED PRNprochlorperazine 5 mg injection (COMPAZINE) 5 mg INTRAVENOUS q 6 H PRNLabs:Recent Labs 0 955 345NA 139 -- -- 137K 3.5 -- -- 3.8CHLOR 108* -- -- 105CO2 26 -- -- 27BUN 18 -- -- 15CREAT 0.53* -- -- 0.52*GLUC 207* -- -- 310*ANION 9 -- -- 9CA 7.1* -- -- 7.3*ALB -- -- 1.7* --AST -- -- 19 --ALT -- -- 18 --ALKPHOS -- -- 66 --TBILI -- -- 1.7* --WBC 9.23* -- -- 8.91HB 7.2* 6.3* -- 4.7*HCT 21.3* -- -- 15.3*PLT 116* -- -- 146LACT -- -- -- 1.1No results for input(s): BODSITE, CTYPE, PH, PCO2, PO2, BE, HCO3, CO2CT,O2HB, COHB, MHGB, TEMP, PHTC, PCO2T, PO2T, O2AD in the last 72 hours.Exam:GENERAL: Alert, no distress, cooperativeSKIN: Skin color, texture, turgor normal. No rashes or lesions.LUNGS: Unlabored breathing on O2 Therapy: Nasal Cannula on Liters: 4sating at SpO2: 96 %CARDIAC: rate and rhythm as above,ABDOMEN: Benign, Soft, non-tender, No masses, hepatosplenomegaly and NolymphadenopathyEXTREMITIES: ROM of all joint grossly normal: strength grossly normalbilaterally. No deformities noted.WOUND: not applicableASSESSMENT AND PLAN:Assessment/PlanThis is a 52 year old malePatient wants to discuss filter with familyWill possibly place later today vs tomorrowAssessment and plan discussed with attending: Dr. HaiderATURE: Earl Mckeon MD PATIENT NAME: Joel HallerDATE: March 25, 2018 : 9:05 AM Pager: [phone] Normal [facility] Glucose Meteron 03-25-2018 Glucose mass conc 236 mg/dL High 70-99 [facility] Comment on above: Result Comment: INEZ Durand OTIFIED Performed By: #### C BC1 ####[facility] [place], [place] [address] Glucose mass conc 241 mg/dL High 70-99 [facility] Comment on above: Result Comment: INEZ Durand OTIFIED Performed By: #### C BC1 ####[address] [address] Glucose mass conc 208 mg/dL High 70- [facility] Comment on above: Performed By: #### C BC1 ####[address] [address] Glucose mass conc 270 mg/dL High 70- [facility] Comment on above: Performed By: #### G FR ####[address] [address] Hemogramon 03-25-2018 Erythrocyte distribution width Auto Ratio (RBC) 16.9 % High 11.6-14.4 [facility] Comment on above: Performed By: #### G FR ####[address] [address] Erythrocytes (RBC) 2.45 mil/cmm Low 4.63-6.08 [facility] Comment on above: Performed By: #### G FR ####[address] [address] Hematocrit (HCT) 21.3 % Low 40.1-51.0 [facility] Comment on above: Performed By: #### G FR ####[address] [address] Hemoglobin mass conc (Bld) 7.2 g/dL Low 13.7-17.5 [facility] Comment on above: Performed By: #### G FR ####[address] [address] MCH 29.4 pg Normal 25.7-32.2 [facility] Comment on above: Performed By: #### G FR ####[facility] [place], [place] [address] MCHC mass conc (RBC) 33.8 % Normal 32.3-36.5 [facility] Comment on above: Performed By: #### G FR ####[address] [address] MCV 86.9 fL Normal 83.2-95.6 [facility] Comment on above: Performed By: #### G FR ####[address] [address] Nucleated erythrocytes 0.25 thou/cmm High 0.00-0.01 [facility] Comment on above: Performed By: #### G FR ####[address] [address] Nucleated RBC % 2.7 % High 0.0-0.2 [facility] Comment on above: Performed By: #### G FR ####[place] [address] Platelet mean volume (PMV) 9.6 fL Normal 8.7-12.0 [facility] Comment on above: Performed By: #### G FR ####[address] [address] Platelets 116 thou/cmm Low 141-365 [facility] Comment on above: Performed By: #### G FR ####[place] [address] RDW SD 44.1 fl Normal 36.1-45.8 [facility] Comment on above: Performed By: #### G FR ####[address] [address] WBC (Leukocytes) 9.23 thou/cmm High 4.23-9.07 [facility] Comment on above: Performed By: #### G FR ####[address] [address] Hgbon 03-25-2018 Hemoglobin mass conc (Bld) 7.3 g/dL Low 13.7-17.5 [facility] Comment on above: Performed By: #### L AC ####[address] [address] Hemoglobin mass conc (Bld) 8.1 g/dL Low 13.7-17.5 [facility] Comment on above: Performed By: #### C BC1 ####[facility] [place], [place] [address] Hemoglobin mass conc (Bld) 6.5 g/dL Critically low 13.7-17.5 [facility] Comment on above: Performed By: #### C BC1 ####[address] [address] MDRD GFRon 03-25-2018 eGFR (non-black) mL/min/{1.73_m2} Normal >60mL/m in/ 1.73m2 [facility] Comment on above: Result Comment: If t he patient is , multiply the result by 1.210. Performed By: #### C BC1 ####[place] [id number] NURSING PROGon 03-25-2018 NURSING PROG HNO ID: [id number] Author: Cordelia Fajardo) INEZ Luz Service: ADT-MICPeggy Author Type: Registered Nurse Type: Nursing Progress Note Filed: 03/25/2018 2:25 PM Note Text: Dr Tellez paged Hg 8.1 [facility] NURSING PROG HNO ID: [id number] Author: Cordelia Fajardo) INEZ Luz Service: ADT-MICPeggy Author Type: Registered Nurse Type: Nursing Progress Note Filed: 03/25/2018 9:29 AM Note Text: Dr Tellez notifed in person hg 6.5. PRBC 1 unit ordered Normal [facility] NUTRITIONon 03-25-2018 NUTRITION HNO ID: [id number] thor: LARA Judd Rdervice: Nutrition TherapyAuthor Type: Registered DietitianType: NutritionFiled: 03/25/2018 12:32 PMNote Text:NUTRITION THERAPY INITIAL ASSESSMENTSERVICE DATE: 03/25/2018SERVICE TIME: 12:15 PMeval for MST 2RECOMMENDED MALNUTRITION DIAGNOSIS: MODERATE PROTEIN-CALORIE MALNUTRITIONIn the context of Acute Illness or Injury based on:Unintentional Weight Loss: >2% over 1 weekInsufficient Energy Intake: less than or equal to 50% for greater than orequal to 5 daysNUTRITION CARE PLAN:Problem, Etiology and Signs/Symptoms:Suboptimal oral intake related to decreased appetite/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 Will continue to follow andmonitor tolerance and intake. Will order nutrition supplements asneeded.-no interventions currentlyCoordination of Care:MICU rounding teamMonitor and Evaluation:Goal: Meet >75% of estimated needsMonitor fluid/electrolyte balanceMonitor labs, I/Os, vital signs, weightDischarge Nutrition Recommendations:To be determinedPer HPI: 52/M with PMHx of DM and ANDREW (on CPAP) developed cough withsputum and left chest pain about 2-3 weeks ago. He was treated with shots(2 in each hip) in his PCPs office and then antibiotics (small blue pillstwice a day for about 10 days). His symptoms got better but over the pastweek has developed worsening dyspnea and left chest pain. He had a nearsyncopal event today with incontinence (bladder and bowel) on [facility] so presented to the ER. Investigation in the ER showed severeanemia (Hb 4.5, normocytic), CT chest showed small to mod left loculatedpleural effusion, left basilar atelectasis vs consolidation and LLL PE. Hehas been having some nausea and vomiting over the past few days withouthematemesis or coffee ground emesis. Stool has been dark brown withoutobvious blood. No fever or chills.?Active Hospital Problems Diagnosis Date Noted- Nicotine use disorder, F17.2 03/25/2018- Obesity, Class III, BMI >= 40 03/25/2018- Anemia 03/24/2018- Atrial fibrillation with RVR (HCC) 03/24/2018- Pulmonary embolism (HCC) 03/24/2018Present Diet Order: Clear LiquidNutritional Intake Prior to Admission: <50% estimated energy need over thepast 2 week(s)GI symptoms: currently,patient states he feels some pain in his abdomenbut he thinks this is due to hunger.Abdominal Exam: abdomen is distendedIs the patient having any pain that is interfering with oral/enteralintake? NoANTHROPOMETRICSHeight: 172.7 cm (5' 8 )Admission Weight: 120.1 kg (264 lb 12.4 oz)Current Weight: 124.4 kg (274 lb 4 oz)Body mass index is 41.7 kg/m?. class 3 obesityWeight has decreased by 4.54 kg over 2 weeks representing 3.7 % weightchange.Last Wt03/25/18 : 124.4 kg (274 lb 4 oz)08/01/07 : 114.3 kg (252 lb)[place] Body Weight: 68.4kgResting Metabolic Rate: 2075Estimated kilocalorie needs: 1335-0496 kilocalories determined by 25-30kcal/kgEstimated protein needs: 75-103 grams determined by 1.1-1.5 g/kg IdealweightEstimated fluid needs: 2000 milliliters based on 1 mL per kcalNUTRITION FOCUSED PHYSICAL EXAM:Subcutaneous Fat LossOrbital No fat lossTriceps No fat lossMid-axillary at the iliac crest No fat lossMuscle Loss Locations:Temporalis No muscle lossPectoralis Unable to determine at this timeDeltoids Unable to determine at this timeInterosseous Unable to determine at this timeLatissimus dorsi, trapezius Unable to determine at this timeQuadriceps Unable to determine at this timeGastrocnemius Unable to determine at this timePotential micronutrient deficiency revealed in: Skin - pallorTeeth - poor dentition,missing teethEdema: Yes GeneralizedAscites: NoAssessment of Functional Status: Functional capacity is unrelated tonutrition statusTemperature Max in 24 hours: Temp (24hrs), Av ?C (98.6 ?F), Min:35.8?C (96.4 ?F), Max:38.1 ?C (100.6 ?F) BP 84/51 Pulse 72 Temp 36.6 ?C (97.9 ?F) Resp 12 Ht 172.7 cm(5' 8 ) Wt 124.4 kg (274 lb 4 oz) SpO2 99% BMI 41.70 kg/m?Recent Labs 03/25/1802GLUC -- 207* -- --BUN -- 18 -- --CREAT -- 0.53* -- --NA -- 139 -- --K -- 3.5 -- --CHLOR -- 108* -- --CO2 -- 26 -- --ALB -- -- -- 1.7*HB 6.5* 7.2* < > --HCT -- 21.3* -- --WBC -- 9.23* -- --< > = values in this interval not displayed.Potential Signs of Inflammation: leukocytosis, hyperglycemia,hypoalbuminemia and imaging studiesIntake/Output 03/23/18 0700 - 03/24/18 0659 03/24/18 0700 - 03/25/18 0659 700 - 03/26/18 0659 Intake (ml) 0 3096.8 774.8 Output (ml) 0 900 0 Net (ml) 0 2196.8 774.8MNT Billing Type: Initial Assess/15 min 3 unitsSIGNATURE: Elvis Booker RD, LD PATIENT NAME: Joel MatsonDATE: March 25, 2018 : 12:15 PM PAGER: [phone] [facility] OPERATIVE NOon 03-25-2018 OPERATIVE NO HNO ID: [id number] thor: Holger Rogerservice: GastroenterologyAuthor Type: PhysicianType: Operative ReportFiled: 03/25/2018 1:13 PMNote Text:BRIEF OPERATIVE / PROCEDURE NOTELOG ID: [id number]/PROCEDURE DATE: 03/25/2018INCISION/PROCEDURE START TIME: 11:27 AMINCISION CLOSE/PROCEDURE END TIME: 11:31 AMSURGEON(S)/PROCEDURALIST(S) AND SUBSTATION OPERATOR HELPER GENERATION(S):Surgeon(s) and Role: * Holger Ruiz - PrimaryNo Additional StaffPROCEDURE(S): EGD +/- Dilatation and BiopsyANESTHESIA: Versed 3 mg, Fentanyl 50 mcg, Cetacaine sprayFINDINGS: 3 small gastric ulcers - bx'dNo blood or stigmata of bleeding seenESTIMATED BLOOD LOSS: NoneSPECIMENS: as aboveCOMPLICATIONS: NonePRE-OP/PRE-PROCEDURE DIAGNOSIS: GI bleedPOST-OP/POST-PROCEDURE DIAGNOSIS: as aboveDaily PPIColonoscopy h/hDict #: [id number]: Holger Ruiz MD PATIENT NAME: Joel MatsonDATE: March 25, 2018 : 1:13 PM PAGER/CONTACT #: Severo [facility] OPERATIVE NO HNO ID: [id number] thor: Holger Rogerservice: GastroenterologyAuthor Type: PhysicianType: Operative ReportFiled: 03/27/2018 12:18 PMNote Text:[facility] - Operative ReportSURGEON: TOMMY AmbroseATIENT NAME: ILA MATSONRN: [id number] CSN: [id number] OF SURGERY: 03/25/2018DATE OF : 1965 SEX/AGE: M/52PATIENT TYPE: I HOSP [facility]: [facility] LOCATION: [id number] OF SURGERY: 03/25/2018SURGEON: TOMMY AmbroseROCEDURE: Esophagogastroduodenoscopy with biopsy.INDICATION: This is a 52-year-old male, admitted to the intensive careunit with severe anemia and some blood in his stool. GI consult wasobtained for further evaluation for GI bleeding source.POSTPROCEDURE DIAGNOSIS:1. 3 small clean based antral ulcer was seen. Biopsies were obtained fromthe Antrum to rule out H. pylori.2. No blood or stigmata of bleeding seen on this examination.PROCEDURE IN DETAIL: Informed consent was obtained after explaining thepatient indications, benefits, alternative tests, and risks including butnot limited to perforation, bleeding, phlebitis, and medicationreactions.MEDICATIONS: Versed 3 mg IV, fentanyl 50 mcg IV. He also receivedCetacaine spray to hypopharynx.PROCEDURE IN DETAIL: The Olympus video upper endoscope was advanced underdirect visualization to the second portion of duodenum. Duodenal bulband second portion appeared grossly normal. In the gastric antrum, therewere 3 small clean based ulcers. These were on the order of about 3 mmin size. There was no blood or stigmata of bleeding seen throughout thisexamination. Biopsies were obtained from the gastric antrum to rule outH. pylori. Retroflex views in the stomach were unremarkable. Theesophagus appeared normal. The Z-line at margin ofgastric folds and diaphragmatic hiatus at 44 cm incisors.The patient tolerated the procedure without immediate complication.RECOMMENDATIONS:1. Daily oral PPI.2. Follow serial H and Hs and transfuse to keep hemoglobin greater than 7.3. If the patient exhibits signs of active bleeding such as bright redblood per rectum, would proceed with stat bleeding scan.4. Otherwise proceed with colonoscopy on Tuesday to further evaluate sourcefor GI blood loss.Holger Ruiz MDGastroenterologyRMS:modlD: 03/25/2018 11:37:06T: 03/25/2018 11:59:15Job #: [id number]:Lupe Turner MD [facility] PROGRESSon 03-25-2018 PROGRESS HNO ID: [id number] thor: David Munoze: Pulmonary DiseaseAuthor Type: PhysicianType: Progress NotesFiled: 03/25/2018 4:13 PMNote Text:[facility] STAFF PHYSICIAN NOTE OF PERSONAL INVOLVEMENT IN CAREI have reviewed the progress note obtained and documented by the residentand I personally participated in the quintana components. I have discussed thecase and management of the patient's care. The following comments reviseor confirm relevant quintana components of the note.52/M with PMHx of DM and ANDREW (on CPAP) developed cough with sputum andleft chest pain about 2-3 weeks ago. He was treated with shots (2 in eachhip) in his PCPs office and then antibiotics (small blue pills twice a dayfor about 10 days). His symptoms got better but over the past week hasdeveloped worsening dyspnea and left chest pain. He had a near syncopalevent today with incontinence (bladder and bowel) on going to the bathroomso presented to the ER. Investigation in the ER showed severe anemia (Hb4.5, normocytic), CT chest showed small to mod left loculated pleuraleffusion, left basilar atelectasis vs consolidation and LLL PE. He hasbeen having some nausea and vomiting over the past few days withouthematemesis or coffee ground emesis. Stool has been dark brown withoutobvious blood. No fever or chills. ?Was also found to be in Afib and was started on amiodarone. Currently inNSR.Had two dark stools overnight/this am. Received another PRBC. c/o mildsob. No cough/sputum production. Mild pleuritic chest pain (left) withdeep breathing.100% 3L NCPleasant, laying comfortably in bedDecreased breath sounds in b/l bases, chest pain left on deep breathingbut without chest wall tendernessRegular rate and rhythm, NSRObese, soft, nt/ndNo c/c/eIMPRESSION:? Severe anemia secondary to GIB, likely upper? Acute hypoxic respiratory failure? Left loculated small to moderate pleural effusion with adjacentatelectasis/consolidation ? Recently treated for pneumonia x 10 days? LLL PE? Paroxysmal Afib: on amiodarone? ANDREW on CPAP? DM? obesityPLAN:? Blood transfusion, keep Hb>7? GI input appreciated, EGD today? D/W Vascular surgery, Dr Castillo. Patient to d/w family about filter? If bleeding source controlled, may not need filter but will place ifrisk of bleeding remains? Anticoagulation depending on work up and when ok with GI? D/c amiodarone? CPAP QHS? Observe without antibiotics? LE DVT: negative for clot? Wean oxygen? SCDs? ICU monitoring?Patient/Family Updated: yes.SIGNATURE: NATALIYA Turner INSTITUTEPAGER:[id number] of SERVICE: March 25, 2018TIME of SERVICE: 10:33 AM Normal [facility] RBC Productson 03-25-2018 Xmatch Unit 1 see below Normal [facility] Comment on above: Result Comment: Comp atible Performed By: #### C BC1 ####[place] [address] Surgical Tissue Examon 03-25 Surgical Tissue Exam Test performed at [place] [address]NAME: DANO JOEL [id number] REQUESTING: ADVID CERRATO M.D.FINAL DIAGNOSIS: STOMACH, ANTRUM, BIOPSY - MINIMAL CHRONIC GASTRITIS.IMMUNOHISTOCHEMICAL STAIN FOR HELICOBACTER PYLORI IS NEGATIVE FORORGANISMS.OPERATIVE PROCEDURE: EGDCLINICAL INFORMATION: GI bleed/anemiaGROSS DESCRIPTION:Antrum biopsyReceived in formalin labeled antral biopsy are two cheng soft tissuesaggregating to 0.6 x 0.3 x 0.2 cm, which are totally submitted in onecassette. Levels x 3, plus H. pylori. BMP:mellisa CORNEJO M.D., PATHOLOGIST(Electronic signature on file)Signed out: 03/28/2018 14:07PRINTED: 03/28/2018 Page 1 of 1 Normal [facility] Comment on above: Performed By: #### R BCPS ####[place] [address] US DVT LOWER BILATERALon Protein Performed at [facility] APPROVED BY: Sylvester Gutierrez MD Exam Title: [...] popliteal, and as much as could be visualized of the trifurcation veins. FINDINGS: No intraluminal echogenic material is noted.The venous structures demonstrate normal compressibility throughout their course.There is spontaneous flow and normal augmentation with distal compression at all levels. IMPRESSION: There is no evidence of deep venous thrombosis within either lower extremity. Normal [facility] ABO/Rh Confirmationon 2017 ABO group B Normal [facility] Comment on above: Performed By: #### G FR ####[place] [address] RH Type Positive Normal [facility] Comment on above: Performed By: #### G FR ####[place] [address] Activated PTTon 03-24-2018 aPTT 19.1 s Low 22.0-34.0 [facility] Comment on above: Result Comment: RESU LT RECHECKED Performed By: #### G FR ####[place] [address] Basic Panelon 03-24-2018 Creatinine 0.52 mg/dL Low 0.67-1.17 [facility] Comment on above: Performed By: #### P 8 ####[facility] [place], [place] [address] Anion gap 9 mmol/L Normal 8-16 [facility] Comment on above: Performed By: #### P 8 ####[facility] [place], [place] [address] CO2 27 mmol/L Normal 21-32 [facility] Comment on above: Performed By: #### P 8 ####[facility] [place], [place] [address] Glucose mass conc 310 mg/dL High 70-99 [facility] Comment on above: Performed By: #### P 8 ####[place] [address] Urea nitrogen 15 mg/dL Normal 7-18 [facility] Comment on above: Performed By: #### P 8 ####[place] [address] Calcium 7.3 mg/dL Low 8.5-10.1 [facility] Comment on above: Performed By: #### P 8 ####[address] [address] Chloride 105 mmol/L Normal 98-107 [facility] Comment on above: Performed By: #### P 8 ####[address] [address] Potassium molar conc 3.8 mmol/L Normal 3.5-5.1 [facility] Comment on above: Performed By: #### P 8 ####[place] [address] Sodium 137 mmol/L Normal 136-145 [facility] Comment on above: Performed By: #### P 8 ####[place] [address] CHEST 1 VIEWon 03-24-2018 Protein Performed at [facility] APPROVED BY: Julien Ma MD EXAM TITLE: CHEST 1 VIEW DATE: 03/24/2018 14:21 INDICATION: Chest pain and shortness of breath. COMPARISON: Outside CT scan dated 518/18. Portable frontal view of the chest shows small to moderate left-sided pleural effusion with decreased aeration at the left lung base. The left upper lung is clear. The right lung is clear. Heart size is normal. IMPRESSION: Left-sided pleural effusion with diminished aeration at the left lung base. Similar to prior CT scan. Normal [facility] CT ABDOMEN AND PELVIS W/O CO NTRASTon 03-24-2018 CT ABDOMEN AND PELVIS W/O CONTRAST Performed at [facility] APPROVED BY: Julien Ma MD EXAMINATION: CT ABDOMEN AND PELVIS WITHOUT IV CONTRAST CLINICAL HISTORY: Nausea and vomiting. TECHNIQUE: Non-IV contrast imaging of the abdomen and pelvis was performed using standard technique, scanning from just above the dome of the diaphragm to the symphysis pubis. Unenhanced imaging is limited for the evaluation of some intra-abdominal and pelvic pathology. Sagittal and coronal reconstructions were performed.MQ: [id number]_3 Contrast:IV: None. No additional IV contrast was administered for this exam. The patient received IV contrast earlier in the same day for pulmonary angiogram.Oral: None. CT Radiation dose: Integrated Dose-length product (DLP) for this visit = 1125 mGy*cm.CT Dose Reduction Employed: Automated exposure control (AEC) [...] seen in the transverse colon. Is unclear whether this is ingested material or whether it [...] earlier in the same day for PE study. Otherwise it may represent ingested material. Correlation with tagged red blood cell scan may be helpful. Colonic diverticulosis. No radiographic evidence for acute diverticulitis. Changes in the liver raise concern for cirrhosis. Cholelithiasis. Moderate size left-sided pleural effusion. Normal [facility] Glucose Meteron 03-24-2018 Glucose mass conc 394 mg/dL High 70-99 [facility] Comment on above: Result Comment: RN N OTIFIED Performed By: #### G FR ####[place] [address] HISTORY PHYSICALon 8 HISTORY PHYSICAL HNO ID: [id number] thor: Renetta (JERARDO Trujilloervice: Critical CareAuthor Type: ResidentType: HANDPFiled: 03/24/2018 6:17 PMNote Text: Attestation signed by David Cerrato at 03/24/2018 7:11 [facility] STAFF PHYSICIAN NOTE OF PERSONAL INVOLVEMENT IN CAREI have reviewed the history and physical examination obtained and documented bythe resident and I personally participated in the quintana components. I havediscussed the case and management of the patient's care. The following commentsrevise or confirm relevant quintana components of the note.52/M with PMHx of DM and ANDREW (on CPAP) developed cough with sputum and leftchest pain about 2-3 weeks ago. He was treated with shots (2 in each hip) inhis PCPs office and then antibiotics (small blue pills twice a day for about 10days). His symptoms got better but over the past week has developed worseningdyspnea and left chest pain. He had a near syncopal event today withincontinence (bladder and bowel) on going to the bathroom so presented to theER. Investigation in the ER showed severe anemia (Hb 4.5, normocytic), CT chestshowed small to mod left loculated pleural effusion, left basilar atelectasisvs consolidation and LLL PE. He has been having some nausea and vomiting overthe past few days without hematemesis or coffee ground emesis. Stool has beendark brown without obvious blood. No fever or chills.Was also found to be in Afib and was started on amiodarone. Currently in NSR.10% on 2L NCPleasant, laying comfortably in bedDecreased breath sounds in b/l bases, chest pain left on deep breathing butwithout chest wall tendernessRegular rate and rhythmObese, soft, nt/ndNo c/c/eIMPRESSION:?Acute hypoxic respiratory failure?Left loculated small to moderate pleural effusion with adjacentatelectasis/consolidation ?Recently treated for pneumonia x 10 days?LLL PE?Severe acute normocytic anemia: no obvious blood loss (hemolytic vshemorrhagic)?Paroxysmal Afib?ANDREW on CPAP?DM?obesityPLAN:?Blood transfusion, keep Hb>7?Check Haptoglobin, bilirubin?Normal platelets and INR?CT abdomen to r/o RP bleed?Observe without antibiotics?If bleeding seen, will need IVC filter?If workup for hemolysis/bleeding negative will order GI consult for anemiaworkup?Check LE DVT?Will review images after uploading. If effusion significant may need chesttube?Repeat labs?Monitor Hb/BP?Peripheral IVs, place central line if needed?Wean oxygen?SCDs?ICU monitoringPatient/Family Updated: yesThis patient has a high probability of sudden, clinically significantdeterioration, which requires the highest level of physician preparedness tointervene urgently. I managed/supervised life or organ supportinginterventions that required frequent physician assessment. I devoted my fullattention to the direct care of this patient for the amount of time indicatedbelow. Time I spent with family or surrogate(s) is included only if thepatient was incapable of providing the necessary information or participatingin medical decision making. Time devoted to teaching and to any procedures Ibilled separately is not included.Critical Care Documentation: The patient has the following organ/systemimpairment(s): severe anemia, PE, left complicated pleural effusionTime spent providing critical care services: 30 minutes.SIGNATURE: NATALIYA Turner SAN MATEOPAGER:[id number] of SERVICE: March 24, 2018TIME of SERVICE: 2:27 PM CRITICAL CARE CONSULT NOTESERVICE DATE: 03/24/2018SERVICE TIME: 12:59 PMREASON FOR CONSULT: Anemia, PE, A-fib RVRREQUESTING PHYSICIAN: [place] EDADMITTING PROVIDER: Shikha Doyle DATE: 03/24/2018SERVICE TIME: 12:59 PMAdmission Date: 03/24/2018AGE: 52 year oldLOS: 0 [id number] y/o M direct admit from [place] for anemia, A-fib RVR, and LLL PE.Patient had LLL PNA 2 wks ago treated as outpatient with 7 days abx. Feltbetter then 6 days ago became increasingly SOB. PCP did outpt stress testwhich was normal and ECHO which showed LVEF=70%. Went to [place] ED todayand found to have Hgb 4.4 (last check on 03/03 was 13.5). Also a-fib RVR,no h/o arrhythmias started on amiodarone. CTPE showed loculated pleuraleffusion L suspicious for empyema given recent pna as well as LLL PEs. Noanticoagulation given suspected GI bleed. Patient reports he maybe hadloose black stools with the pna, but no gross blood in stools, thatresolved, normal BMs now. Small blood streaked sputum also with the pnawhich has resolved. Endorses lightheadedness with standing.ObjectivePROBLEMS: There is no problem list on file for this patient.No past medical history on file.No past surgical history on file.Social History Marital status: Spouse name: Years of education: Number of children:Social History Main Topics Smokeless tobacco: Current User Types: Snuff Comment: 1 can per day Alcohol use: Yes Comment: weekends Drug use: NoVITAL SIGNS (last 24hrs min/max):Temp Av.6 ?C (97.9 ?F) Min: 36.6 ?C (97.9 ?F) Max: 36.6 ?C (97.9?F)No Data RecordedNo Data RecordedCuff No Data RecordedVital signs reviewed.Temp 97.9 Ht 5' 8 (1.73m) Wt 264 lb 12.4 oz (120.1kg) BMI 40.27kg/(m2).Temp (24hrs), Av.6 ?C (97.9 ?F), Min:36.6 ?C (97.9 ?F), Max:36.6 ?C(97.9 ?F)NET FLUID BALANCE No intake or output data in the 24 hours ending [id number] current facility-administered medications for this encounter.Lines, Drains, and Airways No matching active lines, drains, or airwaysPHYSICAL EXAM PERFORMED:BP 106/53 Pulse 93 Temp 37.9 ?C (100.2 ?F) Resp 18 Ht 172.7 cm(5' 8 ) Wt 120.1 kg (264 lb 12.4 oz) SpO2 97% BMI 40.26 kg/m?General: Resting comfortably in bed, NADHEENT: PERRL, mucous membranes dry and paleNeck: Supple, no JVD appreciated, ROM normalCardiovascular: RRR, no m/g/rRespiratory: Clear to auscultation bilaterally, diminished LL base, normalrespiratory effort, speaking full sentences, 97% RAAbdomen: Soft, Nontender and Positive bowel soundsExtremities: Edema- no LE edema, no calf ttp or palpable cordsNeurologic: Awake, oriented x3, Follows commands and Moving allextremitiesSkin: warm, dry, no petechiae or purpuraRespiratory/Nursing Documentation:O2 Therapy: Nasal Cannula (03/24/18 1250)HEMODYNAMIC DATA: ReviewedDATA: Diagnostic tests reviewed for today's visit, films/specimens werepersonally reviewed by me:Most recent labs and imaging results.Outside chart from [facility] reviewed.LABS:ABG:Invalid input(s): [id number]/PlanIMPRESSION :Critical Care Documentation: The patient has the following organ/systemimpairment(s): Acute blood loss and Pulmonary embolism1. Acute anemia (suspected blood loss, hemolysis less likely)2. Loculated L pleural effusion (empyema from pna)3. A-fib RVR - now converted on amiodarone gtt4. LLL PE5. ?GI bleed6. DM27. OSACRITICAL CARE PLAN:-Repeat Hgb [id number] to eval for bleeding-CXR and CTPE from OSH shows atalectasis with loculated effusion, deferabx at this time-LDH, haptoglobin, cold agglutinins to eval for hemolytic cause-Continue amiodarone, wean as tolerated - converted now, consider c/scardiology-No anticoagulation for PE given ?GI bleed, after etiology determined, mayc/s vascular for IVCF-b/l US DVT LEs-NPO, SSIDiscussed with staff/patient/familySIGNATURE: Renetta Mcallister MD PATIENT NAME: Joel MatsonDATE: March 24, 2018 : 12:59 PM Normal [facility] HOSPon 03-24-2018 HOSP Patient:Karine Matson RN: Height:5' 8 (1.727 m)Weight:281 lb 12 oz (127.8 kg)Outpatient Medications as of 03/27/18:empagliflozin (JARDIANCE) 25 mg tabletinsulin degludec-liraglutide (XULTOPHY) 100 unit-3.6 mg/mLtestosterone (ANDROGEL) 20.25 mg/1.25 gram (1.62 %) glpmmetFORMIN (GLUCOPHAGE) 1,000 mg tabletlinagliptin (TRADJENTA) 5 mg tabrosuvastatin (CRESTOR) 40 mg tabletlosartan (COZAAR) 100 mg tabletdiclofenac, EC, (VOLTAREN) 50 mg EC tabletbaclofen (LIORESAL) 10 mg tabletgabapentin (NEURONTIN) 400 mg capsuleescitalopram oxalate (LEXAPRO) 10 mg tabletalbuterol HFA (VENTOLIN HFA) 90 mcg/actuation inhalerAdmission/Clinic Administered Medications as of 03/27/18:pantoprazole 40 mg injection (PROTONIX)NaCl 0.45% iv infusioncefTRIAXone iv piggyback 2 g in dextrose (iso-osmotic) 50 mL (ROCEPHIN)doxycycline 100 mg in D5W 250 mL (VIBRAMYCIN)potassium chloride 80-120 mEq oral liquidpotassium chloride iv piggyback 20 mEq in sterile water 100 mLmagnesium sulfate in water 2 g in sterile water 50 mlsodium phosphate 45 mmol in NaCl 0.9% 250 mLcalcium gluconate 4 g in NaCl 0.9% 250 mLdextrose 40 % 15 gglucagon 1 mg injection (GLUCAGEN)dextrose 50% in water 25 mL syringeinsulin regular human injection (short acting) (NovoLIN R,HumuLIN R)ondansetron (PF) 4 mg injection (ZOFRAN)prochlorperazine 5 mg injection (COMPAZINE)Problem List:Anemia [D64.9]Atrial fibrillation with RVR (HCC) [I48.91]Pulmonary embolism (HCC) [I26.99]Nicotine use disorder, F17.2 [F17.200]Obesity, Class III, BMI >= 40 [E66.01]Malnutrition of moderate degree (HCC) [E44.0]GI bleed [K92.2]Diabetes (HCC) [E11.9]Obstructive sleep apnea [G47.33]Allergies:No Known AllergiesDate Verified:03/27/18Lab ValuesLab Value Units Date High LowPOTA* 3.6 mEq/L 03/27/2018 5.1 3.5HEMA* 23.4 % 03/27/2018 51.0 40.1Progress Notes ():Renetta Mcallister MD, 03/24/2018 6:17 PM Attested Attestation signed by David Cerrato at 03/24/2018 7:11 [facility] STAFF PHYSICIAN NOTE OF PERSONAL INVOLVEMENT IN CAREI have reviewed the history and physical examination obtained and documented bythe resident and I personally participated in the quintana components. I havediscussed the case and management of the patient's care. The following commentsrevise or confirm relevant quintana components of the note.52/M with PMHx of DM and ANDREW (on CPAP) developed cough with sputum and leftchest pain about 2-3 weeks ago. He was treated with shots (2 in each hip) inhis PCPs office and then antibiotics (small blue pills twice a day for about 10days). His symptoms got better but over the past week has developed worseningdyspnea and left chest pain. He had a near syncopal event today withincontinence (bladder and bowel) on going to the bathroom so presented to theER. Investigation in the ER showed severe anemia (Hb 4.5, normocytic), CT chestshowed small to mod left loculated pleural effusion, left basilar atelectasisvs consolidation and LLL PE. He has been having some nausea and vomiting overthe past few days without hematemesis or coffee ground emesis. Stool has beendark brown without obvious blood. No fever or chills.Was also found to be in Afib and was started on amiodarone. Currently in NSR.10% on 2L NCPleasant, laying comfortably in bedDecreased breath sounds in b/l bases, chest pain left on deep breathing butwithout chest wall tendernessRegular rate and rhythmObese, soft, nt/ndNo c/c/eIMPRESSION:?Acute hypoxic respiratory failure?Left loculated small to moderate pleural effusion with adjacentatelectasis/consolidation ?Recently treated for pneumonia x 10 days?LLL PE?Severe acute normocytic anemia: no obvious blood loss (hemolytic vshemorrhagic)?Paroxysmal Afib?ANDREW on CPAP?DM?obesityPLAN:?Blood transfusion, keep Hb>7?Check Haptoglobin, bilirubin?Normal platelets and INR?CT abdomen to r/o RP bleed?Observe without antibiotics?If bleeding seen, will need IVC filter?If workup for hemolysis/bleeding negative will order GI consult for anemiaworkup?Check LE DVT?Will review images after uploading. If effusion significant may need chesttube?Repeat labs?Monitor Hb/BP?Peripheral IVs, place central line if needed?Wean oxygen?SCDs?ICU monitoringPatient/Family Updated: yesThis patient has a high probability of sudden, clinically significantdeterioration, which requires the highest level of physician preparedness tointervene urgently. I managed/supervised life or organ supportinginterventions that required frequent physician assessment. I devoted my fullattention to the direct care of this patient for the amount of time indicatedbelow. Time I spent with family or surrogate(s) is included only if thepatient was incapable of providing the necessary information or participatingin medical decision making. Time devoted to teaching and to any procedures Ibilled separately is not included.Critical Care Documentation: The patient has the following organ/systemimpairment(s): severe anemia, PE, left complicated pleural effusionTime spent providing critical care services: 30 minutes.SIGNATURE: NATALIYA Turner SAN MATEOPAGER:[id number] of SERVICE: March 24, 2018TIME of SERVICE: 2:27 PM CRITICAL CARE CONSULT NOTESERVICE DATE: 03/24/2018SERVICE TIME: 12:59 PMREASON FOR CONSULT: Anemia, PE, A-fib RVRREQUESTING PHYSICIAN: [facility] EDADMITTING PROVIDER: Shikha Doyle DATE: 03/24/2018SERVICE TIME: 12:59 PMAdmission Date: 03/24/2018AGE: 52 year oldLOS: 0 hqqvPvayzqcyse66 y/o M direct admit from [facility] ED for anemia, A-fib RVR, and LLL PE. Patienthad LLL PNA 2 wks ago treated as outpatient with 7 days abx. Sidney better then 6days ago became increasingly SOB. PCP did outpt stress test which was normal andECHO which showed LVEF=70%. Went to [facility] ED today and found to have Hgb 4.4(last check on 03/03 was 13.5). Also a-fib RVR, no h/o arrhythmias started onamiodarone. CTPE showed loculated pleural effusion L suspicious for empyemagiven recent pna as well as LLL PEs. No anticoagulation given suspected GIbleed. Patient reports he maybe had loose black stools with the pna, but nogross blood in stools, that resolved, normal BMs now. Small blood streakedsputum also with the pna which has resolved. Endorses lightheadedness withstanding.ObjectivePROBLEMS: There is no problem list on file for this patient.No past medical history on file.No past surgical history on file.Social History Marital status: Spouse name: Years of education: Number of children:Social History Main Topics Smokeless tobacco: Current User Types: Snuff Comment: 1 can per day Alcohol use: Yes Comment: weekends Drug use: NoVITAL SIGNS (last 24hrs min/max):Temp Av.6 ?C (97.9 ?F) Min: 36.6 ?C (97.9 ?F) Max: 36.6 ?C (97.9 ?F)No Data RecordedNo Data RecordedCuff No Data RecordedVital signs reviewed.Temp 97.9 Ht 5' 8 (1.73m) Wt 264 lb 12.4 oz (120.1kg) BMI 40.27 kg/(m2).Temp (24hrs), Av.6 ?C (97.9 ?F), Min:36.6 ?C (97.9 ?F), Max:36.6 ?C (97.9?F)NET FLUID BALANCE No intake or output data in the 24 hours ending 03/24/18 1259MEDICATIONSNo current facility-administered medications for this encounter.Lines, Drains, and Airways No matching active lines, drains, or airwaysPHYSICAL EXAM PERFORMED:BP 106/53 Pulse 93 Temp 37.9 ?C (100.2 ?F) Resp 18 Ht 172.7 cm (5'8 ) Wt 120.1 kg (264 lb 12.4 oz) SpO2 97% BMI 40.26 kg/m?General: Resting comfortably in bed, NADHEENT: PERRL, mucous membranes dry and paleNeck: Supple, no JVD appreciated, ROM normalCardiovascular: RRR, no m/g/rRespiratory: Clear to auscultation bilaterally, diminished LL base, normalrespiratory effort, speaking full sentences, 97% RAAbdomen: Soft, Nontender and Positive bowel soundsExtremities: Edema- no LE edema, no calf ttp or palpable cordsNeurologic: Awake, oriented x3, Follows commands and Moving all extremitiesSkin: warm, dry, no petechiae or purpuraRespiratory/Nursing Documentation:O2 Therapy: Nasal Cannula (03/24/18 1250)HEMODYNAMIC DATA: ReviewedDATA: Diagnostic tests reviewed for today's visit, films/specimens were personallyreviewed by me:Most recent labs and imaging results.Outside chart from [facility] reviewed.LABS:ABG:Invalid input(s): [id number]/PlanIMPRESSION :Critical Care Documentation: The patient has the following organ/systemimpairment(s): Acute blood loss and Pulmonary embolism1. Acute anemia (suspected blood loss, hemolysis less likely)2. Loculated L pleural effusion (empyema from pna)3. A-fib RVR - now converted on amiodarone gtt4. LLL PE5. ?GI bleed6. DM27. OSACRITICAL CARE PLAN:-Repeat Hgb [id number] to eval for bleeding-CXR and CTPE from OSH shows atalectasis with loculated effusion, defer abx atthis time-LDH, haptoglobin, cold agglutinins to eval for hemolytic cause-Continue amiodarone, wean as tolerated - converted now, consider c/s cardiology-No anticoagulation for PE given ?GI bleed, after etiology determined, may c/svascular for IVCF-b/l US DVT LEs-NPO, SSIDiscussed with staff/patient/familySIGNATURE: Renetta Mcallister MD PATIENT NAME: Joel MatsonDATE: March 24, 2018 : 12:59 PMPrevious VersionHolger Ruiz MD 03/27/2018 12:18 PM [facility] - Operative ReportSURGEON: TOMMY AmbroseATIENT NAME: ILA MATSONRN: [id number] CSN: [id number] OF SURGERY: 03/25/2018DATE OF : 1965 SEX/AGE: M/52PATIENT TYPE: I HOSP SVC: PULM LOCATION: [id number] OF SURGERY: 03/25/2018SURGEON: TOMMY AmbroseROCEDURE: Esophagogastroduodenoscopy with biopsy.INDICATION: This is a 52-year-old male, admitted to the intensive care unitwith severe anemia and some blood in his stool. GI consult was obtained forfurther evaluation for GI bleeding source.POSTPROCEDURE DIAGNOSIS:1. 3 small clean based antral ulcer was seen. Biopsies were obtained from the Antrum to rule out H. pylori.2. No blood or stigmata of bleeding seen on this examination.PROCEDURE IN DETAIL: Informed consent was obtained after explaining the patientindications, benefits, alternative tests, and risks including but not limited toperforation, bleeding, phlebitis, and medication reactions.MEDICATIONS: Versed 3 mg IV, fentanyl 50 mcg IV. He also received Cetacainespray to hypopharynx.PROCEDURE IN DETAIL: The [employer] video upper endoscope was advanced underdirect visualization to the second portion of duodenum. Duodenal bulb andsecond portion appeared grossly normal. In the gastric antrum, there were 3small clean based ulcers. These were on the order of about 3 mm in size.There was no blood or stigmata of bleeding seen throughout this examination.Biopsies were obtained from the gastric antrum to rule out H. pylori.Retroflex views in the stomach were unremarkable. The esophagus appearednormal. The Z-line at margin ofgastric folds and diaphragmatic hiatus at 44 cm incisors.The patient tolerated the procedure without immediate complication.RECOMMENDATIONS:1. Daily oral PPI.2. Follow serial H and Hs and transfuse to keep hemoglobin greater than 7.3. If the patient exhibits signs of active bleeding such as bright red blood per rectum, would proceed with stat bleeding scan.4. Otherwise proceed with colonoscopy on Tuesday to further evaluate source forGI blood loss.Holger Ruiz MDGastroenterologyRMS:modlD: 03/25/2018 11:37:06T: 03/25/2018 11:59:15Job #: [id number]:Lupe Turner, [facility] ANNISTONrevious Amparo Mckeon MD 03/25/2018 9:08 AM Attested Attestation signed by Barbara Castillo at 03/25/2018 9:23 AMI saw and evaluated the patient. Discussed with the resident and agree withresident's findings and plan as documented in the resident's note.D/W pt need for filter. Pt with PE, unable to anticoagulate secondary to GIbleeding while on heparin. In addition, pt may need thoracic intervention.Request made for IVC filter. R/B/A explained including bleeding, infection,hematoma, caval thrombosis, migration and perforation. Also discussed the needto have this removed within a year. The pt would like to discuss this with hisfamily. As the pt had an US of his LE that were negative, the pt has low riskof an event happening while he considers his options. Will check back with ptlater.Barbara Castillo MD Vascular Consult NoteSERVICE DATE: 03/25/2018SubjectiveSUBJECTIVE:Pt presented with PE from unknown Source. In addition pt is having gi bleedingfrom unknown source - initial Hb 4.5 in ED. Patient is currently unable to beanticoagulated. Primary team requesting filter for possible lower ext source.Denies N/V/CP/SOBDiet: DIET NPOObjectiveOBJECTIVE:Vitals:BP 95/55 Pulse 74 Temp (Src) 96.6 (Axillary) Resp 13 Ht 5' 8 (1.73m) Wt 274 lb 4 oz (124.4kg) SpO2 96% BMI 41.71 kg/(m2).Temp (24hrs), Av.1 ?C (98.8 ?F), Min:35.8 ?C (96.4 ?F), Max:38.1 ?C (100.6?F)O2 Therapy: Nasal CannulaIANDO:Date 03/24/18 07 - 03/25/18 0659 03/25/18 07 - 03/26/18 0659Shift 2694-9621 4191-5968 9662-5814 24 Hour Total 0265-6540 4453-5684 2300-767883 Hour TotalINTAKE IV 1200.9 958.9 2159.8 228.7 228.7 NS 0.9% 007 603 4744 196 196 Amiodarone 416.9 134.9 551.8 32.7 32.7 Blood Products 937 937 PRBC Intake (mL) 934 934 Packed Red Blood Cells Number of Units 3 3 Shift Total 2137.9 958.9 3096.8 228.7 228.7OUTPUT Urine 400 500 0 900 Void (ml) 400 500 0 900 Urine Incontinence/Not Saved 1 x 1 x 1 x 1 x # of BMs Stool Incontinence 1 x 1 x Number of BMs 0 x 1 x 1 x Shift Total 400 500 0 900Weight (kg) 120.1 120.1 124.4 124.4 124.4 124.4 124.4 124.4MEDICATIONSCurrent Facility-Administered Medications:potassium chloride 80-120 mEq oral liquid 80-120 mEq ORAL/FEEDING TUBE PRNpotassium chloride iv piggyback 20 mEq in sterile water 100 mL 20 mEqINTRAVENOUS PRNmagnesium sulfate in water 2 g in sterile water 50 ml 2 g INTRAVENOUS PRNsodium phosphate 45 mmol in NaCl 0.9% 250 mL 45 mmol INTRAVENOUS PRNcalcium gluconate 4 g in NaCl 0.9% 250 mL 4 g INTRAVENOUS PRNNaCl 0.9% iv infusion 100 mL/hr INTRAVENOUS CONTINUOUSdextrose 40 % 15 g 15 g ORAL PRNOrglucagon 1 mg injection (GLUCAGEN) 1 mg INTRAMUSCULAR PRNOrdextrose 50% in water 25 mL syringe 12.5 g INTRAVENOUS PRNinsulin regular human injection (short acting) (NovoLIN R,HumuLIN R)SUBCUTANEOUS q 6 Hondansetron (PF) 4 mg injection (ZOFRAN) 4 mg INTRAVENOUS q 6 H PRNamiodarone 360 mg in D5W 200 mL (NEXTERONE) 1 mg/min INTRAVENOUS CONTINUOUSiv contrast (radiology procedure) INTRAVENOUS DIRECTED PRNprochlorperazine 5 mg injection (COMPAZINE) 5 mg INTRAVENOUS q 6 H PRNLabs:Recent Labs 0 955 345NA 139 -- -- 137K 3.5 -- -- 3.8CHLOR 108* -- -- 105CO2 26 -- -- 27BUN 18 -- -- 15CREAT 0.53* -- -- 0.52*GLUC 207* -- -- 310*ANION 9 -- -- 9CA 7.1* -- -- 7.3*ALB -- -- 1.7* --AST -- -- 19 --ALT -- -- 18 --ALKPHOS -- -- 66 --TBILI -- -- 1.7* --WBC 9.23* -- -- 8.91HB 7.2* 6.3* -- 4.7*HCT 21.3* -- -- 15.3*PLT 116* -- -- 146LACT -- -- -- 1.1No results for input(s): BODSITE, CTYPE, PH, PCO2, PO2, BE, HCO3, CO2CT, O2HB,COHB, MHGB, TEMP, PHTC, PCO2T, PO2T, O2AD in the last 72 hours.Exam:GENERAL: Alert, no distress, cooperativeSKIN: Skin color, texture, turgor normal. No rashes or lesions.LUNGS: Unlabored breathing on O2 Therapy: Nasal Cannula on Liters: 4 sating atSpO2: 96 %CARDIAC: rate and rhythm as above,ABDOMEN: Benign, Soft, non-tender, No masses, hepatosplenomegaly and NolymphadenopathyEXTREMITIES: ROM of all joint grossly normal: strength grossly normalbilaterally. No deformities noted.WOUND: not applicableASSESSMENT AND PLAN:Assessment/PlanThis is a 52 year old malePatient wants to discuss filter with familyWill possibly place later today vs tomorrowAssessment and plan discussed with attending: Dr. HaiderATURE: Earl Mckeon MD PATIENT NAME: Joel MatsonDATE: March 25, 2018 : 9:05 AM Pager: [phone] Luz RN, RN 03/25/2018 9:29 AM Danuta Tellez notifed in person hg 6.5. PRBC 1 unit orderedSusaba Abel APRN.CNS 03/25/2018 10:15 AM SignedINITIAL CONSULT GASTROENTEROLOGYSERVICE DATE: 03/25/2018SERVICE TIME: 10:03 AMConsulting Service: Critical CareOpinion/advice regarding: GI bleedSubjectiveHPI: This is a 52 year old male who presents with chest pain, cough andshortness of breath that has worsened over the last weeks. He also had a nearsyncopal event while using the bathroom on the day of presentation. His Hgb onpresentation was 4.7 and he had two dark bloody stools since presentation. GIwas consulted for evaluation of GI bleeding.No past medical history on file.No past surgical history on file.No family history on file.Social HistorySubstance Use Topics- Smoking status: Not on file- Smokeless tobacco: Current User Types: Snuff Comment: 1 can per day- Alcohol use Yes Comment: weekendsMEDICATIONS:Prior to Admission Medications:COMPOUNDED PRESCRIPTION testosterone cream for testic CACOMPOUNDED PRESCRIPTION glucophage dose not knownExenatide 10 mcg/0.04 mL SUBCUTANEOUS PnIj Take one(1) tablet two(2) timesdaily.COMPOUNDED PRESCRIPTION diabetic med, name/dose unknownCOMPOUNDED PRESCRIPTION lexapro, dose unknownCurrent hospital medications:potassium chloride 80-120 mEq oral liquid 80-120 mEq ORAL/FEEDING TUBE PRNpotassium chloride iv piggyback 20 mEq in sterile water 100 mL 20 mEqINTRAVENOUS PRNmagnesium sulfate in water 2 g in sterile water 50 ml 2 g INTRAVENOUS PRNsodium phosphate 45 mmol in NaCl 0.9% 250 mL 45 mmol INTRAVENOUS PRNcalcium gluconate 4 g in NaCl 0.9% 250 mL 4 g INTRAVENOUS PRNNaCl 0.9% iv infusion 100 mL/hr INTRAVENOUS CONTINUOUSdextrose 40 % 15 g 15 g ORAL PRNglucagon 1 mg injection (GLUCAGEN) 1 mg INTRAMUSCULAR PRNdextrose 50% in water 25 mL syringe 12.5 g INTRAVENOUS PRNinsulin regular human injection (short acting) (NovoLIN R,HumuLIN R)SUBCUTANEOUS q 6 Hondansetron (PF) 4 mg injection (ZOFRAN) 4 mg INTRAVENOUS q 6 H PRNamiodarone 360 mg in D5W 200 mL (NEXTERONE) 1 mg/min INTRAVENOUS CONTINUOUSiv contrast (radiology procedure) INTRAVENOUS DIRECTED PRNprochlorperazine 5 mg injection (COMPAZINE) 5 mg INTRAVENOUS q 6 H PRNALLERGIESNo Known AllergiesGI SPECIFIC REVIEW OF SYSTEMS:Positive for nausea, vomiting, bright red blood per rectumNegative for dysphagia, heartburn, acid reflux, hematemesis, melenaNegative for decreased appetite, decreased oral intakeNegative for change in weightNo alteration in bowel habitsOTHER ROS:Negative for fever, night sweats, sleep problems, mood or depression.PAIN ASSESSMENT: Negative for pain, history of chronic pain, or currenttreatment for a chronic pain condition.GENERAL: No weight loss, malaise or feversHEENT: Negative for frequent or significant headaches, No changes in hearing orvision, no nose bleeds or other nasal problemsNECK: Negative for lumps, goiter, pain and significant neck swellingRESPIRATORY: Cough; moist, Shortness of breathCARDIOVASCULAR: Chest painGU: No history of dysuria, frequency or incontinenceMUSCULOSKELETAL: Negative for joint pain or swelling, back pain or muscle painSKIN: Negative for lesions, rash, and itchingPSYCH: Negative for sleep disturbance, mood disorder and recent psychosocialstressorsHEMATOLOGY/L YMPHOLOGY: Negative for prolonged bleeding, bruising easily orswollen nodesENDOCRINE: Negative for cold or heat intolerance, polyuria, polydipsia andgoiterNEURO: No history of headaches, syncope, paralysis, seizures or tremorsObjectivePHYSICAL EXAM:BP 94/50 Pulse 78 Temp 36 ?C (96.8 ?F) Resp 14 Ht 172.7 cm (5' 8 ) Wt 124.4 kg (274 lb 4 oz) SpO2 99% BMI 41.70 kg/m?GENERAL- AAO x 3, no distressHEENT: Moist mucus membranes. Tongue pink and midlineLUNGS: Clear to auscultation bilaterallyCARDIAC: S1, S2 heard. Heart rate regularABDOMEN: Soft, non-tender without guarding or rigidity, normal bowel soundsEXTREMITIES: No pedal edemaDATA:Diagnostic Tests Reviewed for Today's Visit:Most recent labs and imaging results.CBC, Coags, BMP, Mg, PhosRecent Labs 03/25/18020 955 03/24/1813WBC -- 9.23* -- -- 8.91HB 6.5* 7.2* 6.3* -- 4.7*HCT -- 21.3* -- -- 15.3*PLT -- 116* -- -- 146APTT -- -- -- 19.1* --NA -- 139 -- -- 137K -- 3.5 -- -- 3.8CHLOR -- 108* -- -- 105CO2 -- 26 -- -- 27BUN -- 18 -- -- 15CREAT -- 0.53* -- -- 0.52*GLUC -- 207* -- -- 310*CA -- 7.1* -- -- 7.3*CSF AND DilantinLiver Function, Amylase, AND LipaseRecent Labs 03/24/1813TPROT 4.8* --ALB 1.7* --ALT 18 --AST 19 --ALKPHOS 66 --TBILI 1.7* --LACT -- 1.1LD total - 185Haptoglobin - 153CT abdomen - nodular liver, cholelithiasis, no dilated bowel. Colonicdiverticulosis. Pleural effusionImpression/Recommendation s Anemia - acute normocytic. Had two bloody bowel movements today. Reportedepisodic bright red blood per rectum at home-Monitor Hgb/Hct - transfuse as needed- Monitor BMs for bleeding- Consider bleeding scan for continued episodes of rectal bleeding- Plan EGD today with Dr. Ruiz- May need colonoscopy depending on results of EGD Atrial fibrillation with RVR - on Amiodarone drip- managed per primary team Pulmonary embolism- acute. Unable to anticoagulate due to GI bleeding- Possible IVC filter- Vascular surgery followingPlan EGD with Dr. Ruiz. Discussed with patient and he is in agreementGI will continue to followThank you for the consultSIGNATURE: Monica Abel APRN.SQL SERVER DBA PATIENT NAME: Joel MatsonDATE: March 25, 2018 : 10:02 AM PAGER/CONTACT #: [phone] Diwakar, MD 03/25/2018 4:13 PM SignedT[facility] STAFF PHYSICIAN NOTE OF PERSONAL INVOLVEMENT IN CAREI have reviewed the progress note obtained and documented by the resident and Ipersonally participated in the quintana components. I have discussed the case andmanagement of the patient's care. The following comments revise or confirmrelevant quintana components of the note.52/M with PMHx of DM and ANDREW (on CPAP) developed cough with sputum and leftchest pain about 2-3 weeks ago. He was treated with shots (2 in each hip) in hisPs office and then antibiotics (small blue pills twice a day for about 10days). His symptoms got better but over the past week has developed worseningdyspnea and left chest pain. He had a near syncopal event today withincontinence (bladder and bowel) on going to the bathroom so presented to theER. Investigation in the ER showed severe anemia (Hb 4.5, normocytic), CT chestshowed small to mod left loculated pleural effusion, left basilar atelectasis vsconsolidation and LLL PE. He has been having some nausea and vomiting over thepast few days without hematemesis or coffee ground emesis. Stool has been darkbrown without obvious blood. No fever or chills. ?Was also found to be in Afib and was started on amiodarone. Currently in NSR.Had two dark stools overnight/this am. Received another PRBC. c/o mild sob. Nocough/sputum production. Mild pleuritic chest pain (left) with deep breathing.100% 3L NCPleasant, laying comfortably in bedDecreased breath sounds in b/l bases, chest pain left on deep breathing butwithout chest wall tendernessRegular rate and rhythm, NSRObese, soft, nt/ndNo c/c/eIMPRESSION:? Severe anemia secondary to GIB, likely upper? Acute hypoxic respiratory failure? Left loculated small to moderate pleural effusion with adjacentatelectasis/consolidation ? Recently treated for pneumonia x 10 days? LLL PE? Paroxysmal Afib: on amiodarone? ANDREW on CPAP? DM? obesityPLAN:? Blood transfusion, keep Hb>7? GI input appreciated, EGD today? D/W Vascular surgery, Dr Castillo. Patient to d/w family about filter? If bleeding source controlled, may not need filter but will place if risk ofbleeding remains? Anticoagulation depending on work up and when ok with GI? D/c amiodarone? CPAP QHS? Observe without antibiotics? LE DVT: negative for clot? Wean oxygen? SCDs? ICU monitoring?Patient/Family Updated: yes.SIGNATURE: NATALIYA Turner INSTITUTEPAGER:[id number] of SERVICE: March 25, 2018TIME of SERVICE: 10:[address], NICOLAS, RD 03/25/2018 12:32 PM SignedNUTRITION THERAPY INITIAL ASSESSMENTSERVICE DATE: 03/25/2018SERVICE TIME: 12:15 PMeval for MST 2RECOMMENDED MALNUTRITION DIAGNOSIS: MODERATE PROTEIN-CALORIE MALNUTRITIONIn the context of Acute Illness or Injury based on:Unintentional Weight Loss: >2% over 1 weekInsufficient Energy Intake: less than or equal to 50% for greater than or equalto 5 daysNUTRITION CARE PLAN:Problem, Etiology and Signs/Symptoms:Suboptimal oral intake related to decreased appetite/not feeling well x 2 weeksPTA as evidenced by patient interview, HPIIntervention:1) Just started on clears this afternoon. Will continue to follow and monitortolerance and intake. Will order nutrition supplements as needed.-nointerventions currentlyCoordination of Care:MICU rounding teamMonitor and Evaluation:Goal: Meet >75% of estimated needsMonitor fluid/electrolyte balanceMonitor labs, I/Os, vital signs, weightDischarge Nutrition Recommendations:To be determinedPer HPI: 52/M with PMHx of DM and ANDREW (on CPAP) developed cough with sputum andleft chest pain about 2-3 weeks ago. He was treated with shots (2 in each hip)in his PCPs office and then antibiotics (small blue pills twice a day for about10 days). His symptoms got better but over the past week has developed worseningdyspnea and left chest pain. He had a near syncopal event today withincontinence (bladder and bowel) on going to the bathroom so presented to theER. Investigation in the ER showed severe anemia (Hb 4.5, normocytic), CT chestshowed small to mod left loculated pleural effusion, left basilar atelectasis vsconsolidation and LLL PE. He has been having some nausea and vomiting over thepast few days without hematemesis or coffee ground emesis. Stool has been darkbrown without obvious blood. No fever or chills.?Active Hospital Problems Diagnosis Date Noted- Nicotine use disorder, F17.2 03/25/2018- Obesity, Class III, BMI >= 40 03/25/2018- Anemia 03/24/2018- Atrial fibrillation with RVR (HCC) 03/24/2018- Pulmonary embolism ([facility]) 03/24/2018Present Diet Order: Clear LiquidNutritional Intake Prior to Admission: <50% estimated energy need over the past2 week(s)GI symptoms: currently,patient states he feels some pain in his abdomen but hethinks this is due to hunger.Abdominal Exam: abdomen is distendedIs the patient having any pain that is interfering with oral/enteral intake? NoANTHROPOMETRICSHeight: 172.7 cm (5' 8 )Admission Weight: 120.1 kg (264 lb 12.4 oz)Current Weight: 124.4 kg (274 lb 4 oz)Body mass index is 41.7 kg/m?. class 3 obesityWeight has decreased by 4.54 kg over 2 weeks representing 3.7 % weight change.Last Wt03/25/18 : 124.4 kg (274 lb 4 oz)08/01/07 : 114.3 kg (252 lb)[place] Body Weight: 68.4kgResting Metabolic Rate: 6Estimated kilocalorie needs: 4287-5429 kilocalories determined by 25-30 kcal/kgEstimated protein needs: 75-103 grams determined by 1.1-1.5 g/kg [place] weightEstimated fluid needs: 2000 milliliters based on 1 mL per kcalNUTRITION FOCUSED PHYSICAL EXAM:Subcutaneous Fat LossOrbital No fat lossTriceps No fat lossMid-axillary at the iliac crest No fat lossMuscle Loss Locations:Temporalis No muscle lossPectoralis Unable to determine at this timeDeltoids Unable to determine at this timeInterosseous Unable to determine at this timeLatissimus dorsi, trapezius Unable to determine at this timeQuadriceps Unable to determine at this timeGastrocnemius Unable to determine at this timePotential micronutrient deficiency revealed in: Skin - pallorTeeth - poor dentition,missing teethEdema: Yes GeneralizedAscites: NoAssessment of Functional Status: Functional capacity is unrelated to nutritionstatusTemperature Max in 24 hours: Temp (24hrs), Av ?C (98.6 ?F), Min:35.8 ?C(96.4 ?F), Max:38.1 ?C (100.6 ?F) BP 84/51 Pulse 72 Temp 36.6 ?C (97.9 ?F) Resp 12 Ht 172.7 cm (5'8 ) Wt 124.4 kg (274 lb 4 oz) SpO2 99% BMI 41.70 kg/m?Recent Labs 03/25/1802GLUC -- 207* -- --BUN -- 18 -- --CREAT -- 0.53* -- --NA -- 139 -- --K -- 3.5 -- --CHLOR -- 108* -- --CO2 -- 26 -- --ALB -- -- -- 1.7*HB 6.5* 7.2* < > --HCT -- 21.3* -- --WBC -- 9.23* -- --< > = values in this interval not displayed.Potential Signs of Inflammation: leukocytosis, hyperglycemia, hypoalbuminemiaand imaging studiesIntake/Output 03/23/18 0700 - 03/24/18 0659 03/24/18 0700 - 03/25/18 0659 03/25/18 0700 -03/26/18 0659 Intake (ml) 0 3096.8 774.8 Output (ml) 0 900 0 Net (ml) 0 2196.8 774.8MNT Billing Type: Initial Assess/15 min 3 unitsSIGNATURE: Elvis Booker RD, LD PATIENT NAME: Joel MatsonDATE: March 25, 2018 : 12:15 PM PAGER: [phone] Ruiz MD 03/25/2018 1:13 PM SignedBRIEF OPERATIVE / PROCEDURE NOTELOG ID: [id number]/PROCEDURE DATE: 03/25/2018INCISION/PROCEDURE START TIME: 11:27 AMINCISION CLOSE/PROCEDURE END TIME: 11:31 AMSURGEON(S)/PROCEDURALIST(S) AND SUBSTATION OPERATOR HELPER GENERATION(S):Surgeon(s) and Role: * Holger Ruiz - Malcolm Additional StaffPROCEDURE(S): EGD +/- Dilatation and BiopsyANESTHESIA: Versed 3 mg, Fentanyl 50 mcg, Cetacaine sprayFINDINGS: 3 small gastric ulcers - bx'dNo blood or stigmata of bleeding seenESTIMATED BLOOD LOSS: NoneSPECIMENS: as aboveCOMPLICATIONS: NonePRE-OP/PRE-PROCEDURE DIAGNOSIS: GI bleedPOST-OP/POST-PROCEDURE DIAGNOSIS: as aboveDaily PPIColonoscopy h/hDict #: [id number]: Holger Ruiz MD PATIENT NAME: Joel MatsonDATE: March 25, 2018 : 1:13 PM PAGER/CONTACT #:Cordelia Luz RN, RN 03/25/2018 2:[address] Tellez paged [phone] Laureano MD 03/27/2018 9:35 AM [facility] - ConsultationPATIENT NAME: ILA MATSONRN: [id number] CSN: [id number] OF : 1965 SEX/AGE: M/52PATIENT TYPE: I HOSP SVC: PULM LOCATION: [id number] OF SERVICE: 03/26/2018INFECTIOUS DISEASE CONSULTTIME OF CONSULT: 3:17 p.m.HISTORY OF PRESENT ILLNESS: The patient is a 52-year-old [facility],severe dyspnea, loculated left pleural effusion with left lower lobe infiltrateand left lower lobe pulmonary embolism. He was noted to be in atrialfibrillation. He issuspected to have GI bleeding with maroon colored stools. He was started onintravenous Zosyn in [place] and this was continued after transfer here.Infectious Disease consult was requested regarding possible complicated orloculated left pleural effusion. He was admitted under the Pulmonary CriticalCare Service to the ICU. Vascular Surgery was consulted and has placed an IVCfilter this afternoon. Thoracic Surgery has been consulted and is planning toplace a chest tube tomorrow. Gastroenterology has also been consulted, he hadan upper GI endoscopy with biopsy showing 3 small gastriculcers. He is apparently also to have colonoscopy tomorrow.He developed cough with shortness of breath and pleuritic left lower chest painapproximately 2 weeks previously. [facility] injections on the 1st day and a week of oralantibiotics, the name of which he does not know. He had partial improvement,felt good enough that he attempted to return to work and work for a few days,but then got progressive increase in shortness of breath along with chest pain.[facility], but his dyspnea worsenedto the point where his son had to drive him to the procedures and eventually hewas advised to go to the emergency room in [place]. A CT angiogram of thechest revealed left lower lobe infiltrate or atelectasis with an apparentpartially loculated small to moderate left pleural effusion and left lower lobepulmonary embolism. He was transferred here and has been admitted to theintensive care unit for additional treatment.He did not recall significant fever, chills, or sweats. He did not have anyvomiting or choking spells before onset of the respiratory symptoms. He has nothad any recent dental work. He has some dental problems, but no recentlyabscessed teeth. He did not have any syncopal episodes. He has not traveledanywhere, nor been exposed to any ill people. His developed bronchitisafter he became sick. He has not had headache or sore throat. No sinuscongestion. He did have some nausea after he became ill, but he did not vomitbefore. Nodiarrhea. No dysuria, urgency, or frequency. No soft tissue infection orabscess.PAST HISTORY: Diabetes, testicular cancer treated between 2002 to 2004 withresection of both testicles and radiation for 6 months, he is on no ongoingtherapy at this time. He has obesity, paroxysmal atrial fibrillation,obstructive sleep apnea.MEDICATIONS: Reviewed.HOME MEDICATIONS: Reviewed.ALLERGIES: No known allergies.SOCIAL HISTORY: Lives at home with and son. He uses snuff. Does notsmoke. Alcohol use on weekends. No drug use.REVIEW OF SYSTEMS:Outlined above.PHYSICAL EXAMINATION:GENERAL: Obese man, lying flat in bed.VITAL SIGNS: Temperature is 36.6, blood pressure 132/81, pulse 77, [id number], O2 sat 98% to 99% on room air.HEENT: No skin rashes seen. Conjunctivae are unremarkable. Oral mucosa ismoist with no thrush. He is missing a number of teeth and has a number offilled teeth with some decay and gingival disease, but no obvious abscesses.No submandibular or cervical adenopathy.LUNGS: Decreased breath sounds, left base lateral and posterior. Right lungclear.HEART: Regular, systolic murmur in the left sternal border. No gallop.ABDOMEN: Soft, he has some mild nonfocal tenderness, which he attributes to theIVC procedure. No flank tenderness.EXTREMITIES: No distal emboli or joint effusions. Possibly trace lowerextremity edema.DIAGNOSTIC STUDIES: Chest x-ray done 2 days ago showed left-sided effusion withdecreased aeration. CT abdomen and pelvis showed some contrast in the distalileum, transverse and ascending colon, diverticulosis without inflammation, somenodular change in the liver concerning for cirrhosis, and the moderate leftpleural effusion. Ultrasound of the legs showed no DVT. Repeat chest x-rayyesterday. Moderate left pleural effusion and basilar airspace disease,unchanged.He has had minimal microbiologic studies here and I am unable to tell if he hasany micro studies at [place]. MRSA screen from the nose was negative. Coldagglutinins ordered and pending. CBC today shows white count of 6.1, hemoglobin7.5, and platelets 107,000. Serum creatinine here is 0.53.IMPRESSION:1. Loculated left pleural effusion. Possibly parapneumonic versus related to left lower lobe pulmonary embolism. Question associated malignancy.2. Severe anemia, attributed to GI bleeding.3. History of testicular cancer, treated with resection and radiation therapy.4. Diabetes mellitus.5. Atrial fibrillation.6. Acute respiratory failure.PLAN: I would change from Zosyn to ceftriaxone plus doxycycline. He shouldhave pleural fluid analysis, culture and cytology when he has the fluid drainedtomorrow. We will order respiratory PCR panel and urine antigens. We willorder a sputum culture, although I doubt we will obtain any. If he spikes afever, I would do blood cultures, but if he is afebrile, I will not do them thomas has had antibiotics for several days.Thank you for this consult.Keli Laureano MDInfectious DiseaseGEB:modlD: 03/26/2018 15:33:44T: 03/26/2018 22:13:56Job #: [id number] Ashuusajessika LAUREANO AbelN.SQL SERVER DBA 03/26/2018 8:36 AM SignedGI CONSULT PROGRESS NOTESERVICE DATE: 03/26/2018SERVICE TIME: 8:31 AMCONSULTING SERVICE: GastroenterologySubjectiveINTERVA L HISTORY: Feeling better. Had 2 maroon stools since EGD. Had one unit ofPRBCs yesterday. Hgb 7.5 today.MEDICATIONS:Current hospital medications:pantoprazole DR 40 mg tab(s) (PROTONIX) 40 mg ORAL DAILY (6 AM)potassium chloride 80-120 mEq oral liquid 80-120 mEq ORAL/FEEDING TUBE PRNpotassium chloride iv piggyback 20 mEq in sterile water 100 mL 20 mEqINTRAVENOUS PRNmagnesium sulfate in water 2 g in sterile water 50 ml 2 g INTRAVENOUS PRNsodium phosphate 45 mmol in NaCl 0.9% 250 mL 45 mmol INTRAVENOUS PRNcalcium gluconate 4 g in NaCl 0.9% 250 mL 4 g INTRAVENOUS PRNNaCl 0.9% iv infusion 100 mL/hr INTRAVENOUS CONTINUOUSdextrose 40 % 15 g 15 g ORAL PRNglucagon 1 mg injection (GLUCAGEN) 1 mg INTRAMUSCULAR PRNdextrose 50% in water 25 mL syringe 12.5 g INTRAVENOUS PRNinsulin regular human injection (short acting) (NovoLIN R,HumuLIN R)SUBCUTANEOUS q 6 Hondansetron (PF) 4 mg injection (ZOFRAN) 4 mg INTRAVENOUS q 6 H PRNiv contrast (radiology procedure) INTRAVENOUS DIRECTED PRNprochlorperazine 5 mg injection (COMPAZINE) 5 mg INTRAVENOUS q 6 H PRNObjectivePHYSICAL EXAM:VITALS:BP (!) 107/44 Pulse 79 Temp 36.2 ?C (97.2 ?F) Resp 18 Ht172.7 cm (5' 8 ) Wt 124 kg (273 lb 5.9 oz) SpO2 97% BMI 41.57 kg/m?ABDOMEN: Soft, nondistended, nontender, bowel sounds present. No guarding,rebound or rigidity.GENERAL: Alert and oriented. No distressDATA:Diagnostic tests reviewed for today's visit:Most recent labs and imaging results.CBC, Coags, BMP, Mg, PhosRecent Labs [id number] 2103/24/1816WBC 6.14 -- -- -- 9.23* -- -- 8.91HB 7.5* 7.3* 8.1* < > 7.2* < > -- 4.7*HCT 23.0* -- -- -- 21.3* -- -- 15.3*PLT 107* -- -- -- 116* -- -- 146APTT -- -- -- -- -- -- 19.1* --NA 139 -- -- -- 139 -- -- 137K 3.2* -- -- -- 3.5 -- -- 3.8CHLOR 108* -- -- -- 108* -- -- 105CO2 27 -- -- -- 26 -- -- 27BUN 13 -- -- -- 18 -- -- 15CREAT 0.53* -- -- -- 0.53* -- -- 0.52*GLUC 189* -- -- -- 207* -- -- 310*CA 7.0* -- -- -- 7.1* -- -- 7.3*< > = values in this interval not displayed.CSF AND DilantinLiver Function, Amylase, AND LipaseRecent Labs 03/24/1813TPROT 4.8* --ALB 1.7* --ALT 18 --AST 19 --ALKPHOS 66 --TBILI 1.7* --LACT -- 1.1EGD - small gastric ulcers. No bleedingImpression/Recommendation s Anemia - acute normocytic. EGD showed no bleeding-Monitor Hgb/Hct - transfuse as needed- Monitor BMs for bleeding-- Plan colonoscopy tomorrow with Dr. Kang? Atrial fibrillation with RVR - amiodarone drip stopped - managed per primary team? Pulmonary embolism- acute. Unable to anticoagulate due to GI bleeding- Possible IVC filter- Vascular surgery following?Can continue clear liquids today. Will give 2 dulcolax tabs at 3 pm then startcolon prep at 4 pm?GI will continue to followSIGNATURE: Monica Abel APRN.SQL SERVER DBA PATIENT NAME: Joel MatsonDATE: March 26, 2018 : 8:31 AM PAGER/CONTACT #: [phone] Stocker, MD 03/26/2018 2:25 PM SignedCONSULT: THORACIC SERVICESERVICE DATE: 03/26/2018SERVICE TIME: 1130REASON FOR CONSULT: Pleural effusionREQUESTING PHYSICIAN: [facility] CARE PHYSICIAN: No primary care provider on file.SubjectiveMr. Matson is a 52 year old male who presents for cough and left chest pain anddyspnea. He has had these symptoms for weeks, and was getting treatment from aPCP but his symptoms were worsening. He presented then with findings also ofsevere anemia and noted he had been having coffee ground emesis.CT findings at that time were positive for a LLL PE.He was admitted with the diagnoses of PNA, PE, GIB, treated on zosyn. EGDrevealed no active source. He is currently being prepped for a colonoscopy onTuesday. In the mean time he has been having maroon stools, with a stable Hgbpost transfusion on admission.FUNCTIONAL STATUS: IndependentNo past medical history on file.No past surgical history on file.No family history on file.Social HistorySubstance Use Topics- Smoking status: Not on file- Smokeless tobacco: Current User Types: Snuff Comment: 1 can per day- Alcohol use Yes Comment: weekendsPrescriptions Prior to Admission:COMPOUNDED PRESCRIPTION testosterone cream for testic CA Disp: Rfl: 0COMPOUNDED PRESCRIPTION glucophage dose not known Disp: Rfl: 0Exenatide 10 mcg/0.04 mL SUBCUTANEOUS PnIj Take one(1) tablet two(2) timesdaily. Disp: Rfl: 0COMPOUNDED PRESCRIPTION diabetic med, name/dose unknown Disp: Rfl: 0COMPOUNDED PRESCRIPTION lexapro, dose unknown Disp: Rfl: 0Current hospital medications:bisacodyl EC 10 mg tab(s) (DULCOLAX) 10 mg ORAL ONCEpolyethylene glycol 3350 255 g oral powder (MIRALAX, GLYCOLAX) 255 g ORAL ONCEpiperacillin-tazobactam 3.375 g in dextrose (iso-osmotic) 50 mL (ZOSYN) 3.375 gINTRAVENOUS q [address] 40 mg tab(s) (PROTONIX) 40 mg ORAL DAILY (6 AM)potassium chloride 80-120 mEq oral liquid 80-120 mEq ORAL/FEEDING TUBE PRNpotassium chloride iv piggyback 20 mEq in sterile water 100 mL 20 mEqINTRAVENOUS PRNmagnesium sulfate in water 2 g in sterile water 50 ml 2 g INTRAVENOUS PRNsodium phosphate 45 mmol in NaCl 0.9% 250 mL 45 mmol INTRAVENOUS PRNcalcium gluconate 4 g in NaCl 0.9% 250 mL 4 g INTRAVENOUS PRNNaCl 0.9% iv infusion 100 mL/hr INTRAVENOUS CONTINUOUSdextrose 40 % 15 g 15 g ORAL PRNglucagon 1 mg injection (GLUCAGEN) 1 mg INTRAMUSCULAR PRNdextrose 50% in water 25 mL syringe 12.5 g INTRAVENOUS PRNinsulin regular human injection (short acting) (NovoLIN R,HumuLIN R)SUBCUTANEOUS q 6 Hondansetron (PF) 4 mg injection (ZOFRAN) 4 mg INTRAVENOUS q 6 H PRNiv contrast (radiology procedure) INTRAVENOUS DIRECTED PRNprochlorperazine 5 mg injection (COMPAZINE) 5 mg INTRAVENOUS q 6 H PRNAllergies As of Date: 03/24/2018(No Known Allergies)Fully Assessed 03/24/2018COMPLETE REVIEW OF SYSTEMS:GENERAL: No weight loss, malaise or feversRESPIRATORY: see HPICARDIOVASCULAR: left chest painGI: See HPIMUSCULOSKELETAL: Negative for joint pain or swelling, back pain or muscle painObjectivePHYSICAL EXAM:Physical Exam Performed:GENERAL: Alert, no distress, cooperativeLUNGS: diminished LLCARDIAC: Normal S1 and S2; no rubs, murmurs, or gallopsABDOMEN: Abdomen soft, non-tender, BS normal, No masses or organomegalyBP 115/59 Pulse 84 Temp (Src) 96.8 (Axillary) Resp 17 Ht 5' 8 (1.73m) Wt 273 lb 5.9 oz (124.0kg) SpO2 99% BMI 41.58 kg/(m2).DATA:Diagnostic tests reviewed for today's visit:Most recent labs and imaging results.Impression/Recommendation s52 YO male with loculated pleural effusion- would recommend bedside large bore chest tube. At the request of the MICUservice this will be performed after his colonoscopy.- INR in [facility]/w Dr. GuzmanATURE: Jose Woods MD PATIENT NAME: Joel HisnuryDATE: March 26, 2018 : 10:59 AM PAGER: [phone] reviewed, case d/w resident and recommendation made for chest tubeinsertion on left, but pulmonary doesn't want it done until after scope onMonday! Will see patient tomorrow.Previous VersionJose Woods MD 03/26/2018 11:10 AM Attested Attestation signed by Barbara Castillo at 03/26/2018 11:22 AMI saw and evaluated the patient. Discussed with the resident and agree withresident's findings and plan as documented in the resident's note. I spent 15minutes in the visit, with more than 50% of the total [id number] time of thevisit in counseling / coordination of care.Barbara Castillo MD VASCULAR SURGERY PROGRESS NOTESERVICE DATE: 03/26/2018SubjectiveSUBJECTIVE:Mariaelena rose BM overnight.Denies N/V/CP/SOBDiet: DIET LIQUIDDIET NPOObjectiveOBJECTIVE:Vitals:Temp (24hrs), Av.5 ?C (97.7 ?F), Min:36 ?C (96.8 ?F), Max:37 ?C (98.6 ?F)BP 115/59 Pulse 84 Temp 36 ?C (96.8 ?F) Resp 17 Ht 172.7 cm (5' 8 ) Wt 124 kg (273 lb 5.9 oz) SpO2 99% BMI 41.57 kg/m?O2 Therapy: Room AirIANDO:Date 03/25/18 07 - 03/26/18 0659 03/26/18 07 - 03/27/18 0659Shift 8812-6537 3931-2106 8425-0044 24 Hour Total 2884-0105 3604-3481 2300-240686 Hour TotalINTAKE PO 926 884 8100 1080 1080 PO 576 296 7019 1080 1080 IV 610.8 663 969 9543.8 815 815 NS 0.9% 550 569 969 0134 415 415 Potassium IVPB 400 400 Amiodarone 60.8 60.8 Blood Products 350 350 PRBC Intake (mL) 350 350 Shift Total 1420.8 9909 503 8576.8 1895 1895OUTPUT Urine 500 010 982 8199 0 0 Void (ml) 500 384 786 1196 0 0 Urine Incontinence/Not Saved 1 x 1 x 2 x 2 x # of BMs Stool Incontinence 2 x 2 x Number of BMs 0 x 0 x 0 x 0 x 0 x Shift Total 500 279 528 7556 0 0Weight (kg) 124.4 124.4 124 124 124 124 124 124MEDICATIONSCurrent Facility-Administered Medications:bisacodyl EC 10 mg tab(s) (DULCOLAX) 10 mg ORAL ONCEpiperacillin-tazobactam 3.375 g in dextrose (iso-osmotic) 50 mL (ZOSYN) 3.375 gINTRAVENOUS q [address] 40 mg tab(s) (PROTONIX) 40 mg ORAL DAILY (6 AM)potassium chloride 80-120 mEq oral liquid 80-120 mEq ORAL/FEEDING TUBE PRNpotassium chloride iv piggyback 20 mEq in sterile water 100 mL 20 mEqINTRAVENOUS PRNmagnesium sulfate in water 2 g in sterile water 50 ml 2 g INTRAVENOUS PRNsodium phosphate 45 mmol in NaCl 0.9% 250 mL 45 mmol INTRAVENOUS PRNcalcium gluconate 4 g in NaCl 0.9% 250 mL 4 g INTRAVENOUS PRNNaCl 0.9% iv infusion 100 mL/hr INTRAVENOUS CONTINUOUSdextrose 40 % 15 g 15 g ORAL PRNOrglucagon 1 mg injection (GLUCAGEN) 1 mg INTRAMUSCULAR PRNOrdextrose 50% in water 25 mL syringe 12.5 g INTRAVENOUS PRNinsulin regular human injection (short acting) (NovoLIN R,HumuLIN R)SUBCUTANEOUS q 6 Hondansetron (PF) 4 mg injection (ZOFRAN) 4 mg INTRAVENOUS q 6 H PRNiv contrast (radiology procedure) INTRAVENOUS DIRECTED PRNprochlorperazine 5 mg injection (COMPAZINE) 5 mg INTRAVENOUS q 6 H PRNLabs:Recent Labs 03/25/1820345NA 139 -- -- 139 -- -- 137K 3.2* -- -- 3.5 -- -- 3.8CHLOR 108* -- -- 108* -- -- 105CO2 27 -- -- 26 -- -- 27BUN 13 -- -- 18 -- -- 15CREAT 0.53* -- -- 0.53* -- -- 0.52*GLUC 189* -- -- 207* -- -- 310*ANION 7* -- -- 9 -- -- 9CA 7.0* -- -- 7.1* -- -- 7.3*ALB -- -- -- -- -- 1.7* --AST -- -- -- -- -- 19 --ALT -- -- -- -- -- 18 --ALKPHOS -- -- -- -- -- 66 --TBILI -- -- -- -- -- 1.7* --WBC 6.14 -- -- 9.23* -- -- 8.91HB 7.5* 7.3* < > 7.2* < > -- 4.7*HCT 23.0* -- -- 21.3* -- -- 15.3*PLT 107* -- -- 116* -- -- 146LACT -- -- -- -- -- -- 1.1< > = values in this interval not displayed.Exam:GENERAL: Alert, no distress, cooperativeLUNGS: Unlabored breathing on O2 Therapy: RACARDIAC: rate and rhythm as above,EXTREMITIES: FLORES, no edema?ASSESSMENT AND PLAN:Active Hospital Problems Diagnosis Date Noted- Obstructive sleep apnea 03/26/2018 Chronic- Diabetes (HCC) 03/26/2018 Chronic- Nicotine use disorder, F17.2 03/25/2018- Obesity, Class III, BMI >= 40 03/25/2018- Malnutrition of moderate degree (HCC) 03/25/2018- Anemia 03/24/2018- Atrial fibrillation with RVR ([facility]) 03/24/2018- Pulmonary embolism (HCC) 03/24/2018- GI bleed 03/24/2018 Overview Note: Added automatically from request for surgery [id number] year old male with PE and GIB- continued need for IVCF. Plan per MICU team and patient are to proceed withfilter. Will place today.Assessment and plan discussed with attending: MelizaATURE: Jose Woods MD PATIENT NAME: Joel HisnuryDATE: March 26, 2018 : 11:08 AM Pager: [phone]: Barbara Castillo MD 03/26/2018 11:12 AM SignedPt seen and examined. D/W Dr Tellez. Pt with no source from EGD. Likelysource from bowel and pt unlikely to be anticoagulated. In addition, pt willneed treatment of his L plearual effusion.Pt with current PE, unable to be anticoagulated secondary to bleeding risk.Will place IVC filter. Pt agreeable to procedure after R/B/A explained to him.Alida Martell DO 03/26/2018 1:37 PM Attested Attestation signed by David Cerrato at 03/26/2018 6:00 [facility] STAFF PHYSICIAN NOTE OF PERSONAL INVOLVEMENT IN CAREI have reviewed the progress note obtained and documented by the resident and Ipersonally participated in the quintana components. I have discussed the case andmanagement of the patient's care. The following comments revise or confirmrelevant quintana components of the note.52/M with PMHx of DM and ANDREW (on CPAP) developed cough with sputum and leftchest pain about 2-3 weeks ago. He was treated with shots (2 in each hip) inhis PCPs office and then antibiotics (small blue pills twice a day for about 10days). His symptoms got better but over the past week has developed worseningdyspnea and left chest pain. He had a near syncopal event today withincontinence (bladder and bowel) on going to the bathroom so presented to theER. Investigation in the ER showed severe anemia (Hb 4.5, normocytic), CT chestshowed small to mod left loculated pleural effusion, left basilar atelectasisvs consolidation and LLL PE. He has been having some nausea and vomiting overthe past few days without hematemesis or coffee ground emesis. Stool has beendark brown without obvious blood. No fever or chills. ?Was also found to be in Afib and was started on amiodarone. Currently in NSR.Amiodarone was stopped 03/25/18.EGD on 03/25/18 showed 3 small non bleeding gastric ulcers, biopsied. On PPI.Had dark bloody movements yesterday afternoon, one so far today. Breathingimproved but still with pleuritic pain and breathing heavy. 102/58 77/min 96% RASitting in chair, pleasantDecreased breath sounds in basesRegular rhythm, NSR s1s2 normalabd soft, nt ndNo c/c/eCXR: persistent moderate left pleural effusionHb 7.5 (7.3 yesterday pm)IMPRESSION:?Severe anemia secondary to GIB?EGD showed 3 non bleeding small gastric ulcers, biopsied?Acute hypoxic respiratory failure: improved?Left loculated small to moderate pleural effusion with adjacentatelectasis/consolidation with pleuritic chest pain and dyspnea?Recently treated for pneumonia x 10 days?LLL PE?Paroxysmal Afib: in NSR?ANDREW on CPAP?DM?obesity?PLAN:?Blood transfusion, keep Hb>7?GI input appreciated, colonoscopy tomorrow?D/W Vascular surgery, Dr Castillo. Will need IVC filter due to ongoing GIB andother complications/issues which will need intervention?D/w patient, agrees?Anticoagulation depending on work up and when ok with GI?CPAP QHS?Thoracic surgery consult for chest tube/pigtail placement?ID consult for opinion on antibiotics for treated/partially treatedcomplicated effusion?Start zosyn?LE DVT: negative for clot?SCDs?ICU monitoringPatient/Family Updated: yes. Agreeable with plan.SIGNATURE: NATALIYA Turner INSTITUTEPAGER:[id number] of SERVICE: March 26, 2018TIME of SERVICE: 10:03 AM MICU - PROGRESS NOTESERVICE DATE: 03/26/2018SERVICE TIME: 12:29 PMAdmission Date: 03/24/2018AGE: 52 year oldLOS: 2 daysSubjectiveREASON FOR ICU ADMISSION: GI Bleeding and Pneumonia2 small bowel movements with blood overnight. EGD done yesterday showed nosource of bleeding. Plan for colonoscopy Tuesday. Patient admits to some SOB.Admits to left chest pain with breathing. Cough is productive. Deniesabdominal pain, nausea or vomiting. Tolerating diet.ObjectivePROBLEMS: ACTIVE PROBLEM LISTAnemiaAtrial Fibrillation With Rvr (Hcc)Pulmonary Embolism (Hcc)Nicotine use disorder, F17.2Obesity, Class III, BMI >= 40Malnutrition of Moderate Degree (Hcc)GI BleedDiabetes (Hcc)Obstructive Sleep ApneaPAST MEDICAL HISTORYDiagnosis Date- Testicular cancer (HCC) 2002PAST SURGICAL HISTORYProcedure Laterality Date- ORCHIECTOMY SIMPLE Bilateral 2002 testicular cancerSocial History Marital status: Spouse name: Years of education: Number of children:Social History Main Topics Smokeless tobacco: Current User Types: Snuff Comment: 1 can per day Alcohol use: Yes Comment: weekends Drug use: NoVITAL SIGNS (last 24hrs min/max):Temp Av.5 ?C (97.7 ?F) Min: 36 ?C (96.8 ?F) Max: 37 ?C (98.6 ?F)Pulse Av.6 Min: 69 Max: 85No Data RecordedCuff BP Min: 93/58 Max: 122/72Pain Score: 0/10Vital signs reviewed.BP 119/78 Pulse 78 Temp (Src) 97.9 (Axillary) Resp 20 Ht 5' 8 (1.73m) Wt 273 lb 5.9 oz (124.0kg) SpO2 100% BMI 41.58 kg/(m2).Temp (24hrs), Av.5 ?C (97.7 ?F), Min:36 ?C (96.8 ?F), Max:37 ?C (98.6 ?F)NET FLUID BALANCEIntake/Output Summary (Last 24 hours) at 03/26/18 1229Last data filed at 03/26/18 1139 Gross per 24 hourIntake 5061 mlOutput 1350 mlNet 3711 mlMEDICATIONSCurrent Facility-Administered Medications:[MAR Hold due to Transfer] bisacodyl EC 10 mg tab(s) (DULCOLAX) 10 mg ORAL ONCE[MAR Hold due to Transfer] polyethylene glycol 3350 255 g oral powder (MIRALAX,GLYCOLAX) 255 g ORAL ONCE[MAR Hold due to Transfer] piperacillin-tazobactam 3.375 g in dextrose(iso-osmotic) 50 mL (ZOSYN) 3.375 g INTRAVENOUS q 6 H[MAR Hold due to Transfer] pantoprazole DR 40 mg tab(s) (PROTONIX) 40 mg ORALDAILY (6 AM)[MAR Hold due to Transfer] potassium chloride 80-120 mEq oral liquid 80-120 mEqORAL/FEEDING TUBE PRN[MAR Hold due to Transfer] potassium chloride iv piggyback 20 mEq in sterilewater 100 mL 20 mEq INTRAVENOUS PRN[MAR Hold due to Transfer] magnesium sulfate in water 2 g in sterile water 50 ml2 g INTRAVENOUS PRN[MAR Hold due to Transfer] sodium phosphate 45 mmol in NaCl 0.9% 250 mL 45 mmolINTRAVENOUS PRN[MAR Hold due to Transfer] calcium gluconate 4 g in NaCl 0.9% 250 mL 4 gINTRAVENOUS PRN[MAR Hold due to Transfer] NaCl 0.9% iv infusion 100 mL/hr INTRAVENOUSCONTINUOUS[MAR Hold due to Transfer] dextrose 40 % 15 g 15 g ORAL PRNOr[MAR Hold due to Transfer] glucagon 1 mg injection (GLUCAGEN) 1 mg INTRAMUSCULARPRNOr[MAR Hold due to Transfer] dextrose 50% in water 25 mL syringe 12.5 gINTRAVENOUS PRN[MAR Hold due to Transfer] insulin regular human injection (short acting)(NovoLIN R,HumuLIN R) SUBCUTANEOUS q 6 H[MAR Hold due to Transfer] ondansetron (PF) 4 mg injection (ZOFRAN) 4 mgINTRAVENOUS q 6 H PRN[MAR Hold due to Transfer] iv contrast (radiology procedure) INTRAVENOUS ASDIRECTED PRN[JAN Hold due to Transfer] prochlorperazine 5 mg injection (COMPAZINE) 5 mgINTRAVENOUS q 6 H PRNLines, Drains, and Airways Line Peripheral 03/24/18 Admission to Hospital Right Antecubital 20 Gauge 2 daysPHYSICAL EXAM PERFORMED:General: Awake alert. Sitting in chair eating breakfastCardiovascular: RRR, no murmurRespiratory: Diminished breath sounds at bases.Abdomen: Soft, Nontender and Positive bowel soundsExtremities: No pitting edemaNeurologic: Awake, oriented, Alert, Follows commands and Moving all extremitiesRespiratory/Nursing Documentation:O2 Therapy: Room Air (03/26/18 1139)HEMODYNAMIC DATA: ReviewedNUTRITION:Enteral Feeds: YesClear liquidsDATA: Diagnostic tests reviewed for today's visit, films/specimens were personallyreviewed by me:Most recent labs and imaging results.LABS:Recent Labs 200 600 400WBC 6.14 < > -- --RBC 2.55* < > -- --HB 7.5* < > -- --HCT 23.0* < > -- --MCV 90.2 < > -- --PLT 107* < > -- --GLUC 189* < > -- --BUN 13 < > -- --CREAT 0.53* < > -- --NA 139 < > -- --K 3.2* < > -- --CHLOR 108* < > -- --CO2 27 < > -- --TPROT -- -- -- 4.8*ALB -- -- -- 1.7*CA 7.0* < > -- --ALKPHOS -- -- -- 66TBILI -- -- -- 1.7*AST -- -- -- 19ALT -- -- -- 18APTT -- -- 19.1* --< > = values in this interval not displayed.ABG:Invalid input(s): K7THMGHQOlacerkapt/PlanGI bleed-monitor HgB, transfuse <7-EGD yesterday did not reveal bleeding-GI following-Colonoscopy tomorrow-Protonix daily-IV fluidsAcute respiratory failure-O2 NC wean as tolerated.Pneumonia with loculated pleural effusion-Chest surgery consult for chest tube-continue ZosynParoxsymal A.fib-rate improved with amiodaroneH/O PE/DVT-anticoagulation contraindicated due to GI bleed-Vascular surgery consult to IVF filterSIGNATURE: Agustín Lawrence DO PATIENT NAME: Joel MatsonDATE: March 26, 2018 : 12:29 PMBarbara Castillo MD 03/26/2018 12:46 PM SignedVASCULAR SURGERYPOST PROCEDURE NOTEDATE: 03/26/18NAME: Joel HallerMRN: [id number] ID: [id number] Diagnosis: PE, unable to anticoagulatePost Procedure Diagnosis: Same.Machine Veneer Repairer: Dr. Barbara Castillo (Primary)Procedure: insertion of edward IVC filterAnesthesia: LocalFindings: successfulEstimated Blood Loss: Minimal (Less Than 25 mL).Specimen: None.Complications: None. .Full report with procedural details to follow and will become available underImaging Reports. Please contact for any questions or concerns.Giana Martell, RN, RN 03/26/2018 2:16 PM SignedD/w Dr Castillo via phone, 2 hrs BedrestGmatthieu Laureano MD 03/26/2018 3:33 PM SignedMarch 26, 2018 3:07 PMInfectious Disease Consult dictated #[id number].Imp:Loculated left pleural effusion, parapneumonic vs related to LLL PE. ?malignancy?Hx testicular Ca Rx resection and radiationDMRec:Change zosyn to ceftriaxone and doxySend pleural fluid for fluid studies and cultures and cytologyRespiratory pcr panelUrine antigensSputum cultureDavid Mullins MD 03/27/2018 6:36 AM Cosign NeededThoracic Surgery Progress NoteSERVICE DATE: 03/27/2018SubjectiveSUBJECTIVE:JULIA ON, denies bleeding, up in chair resting comfortablyDenies N/V/CP/SOBDiet: DIET NPOObjectiveOBJECTIVE:Vitals:Temp (24hrs), Av.4 ?C (97.6 ?F), Min:36 ?C (96.8 ?F), Max:36.6 ?C (97.9 ?F)BP 107/58 Pulse 67 Temp 36.4 ?C (97.5 ?F) (Axillary) Resp 15 Ht172.7 cm (5' 8 ) Wt 127.8 kg (281 lb 12 oz) SpO2 98% BMI 42.84 kg/m?O2 Therapy: Room AirIANDO:Date 03/26/18 0700 - 03/27/18 0659 03/27/18 0700 - 03/28/18 0659Shift 6287-1911 4299-6519 9839-3290 24 Hour Total 3578-5314 1792-6573 2300-578436 Hour TotalINTAKE PO 1320 8217 383 4967 PO 1320 8551 647 7344 IV 980 2320 747 6203 IVPB 250 250 NS 0.9% 530 9385 954 7175 Zosyn IV 50 50 Ceftriaxone IV 50 50 Potassium IVPB 400 400 Shift Total 2300 3074 1037 6411OUTPUT Urine 0 162 603 3278 Void (ml) 0 015 817 9725 Urine Incontinence/Not Saved 2 x 2 x 4 x Urine Not Saved 1 1 # of BMs Stool Incontinence 1 x 1 x Number of BMs 0 x 4 x 4 x 8 x Shift Total 0 650 451 1101Weight (kg) 124 124 127.8 127.8 127.8 127.8 127.8 127.8MEDICATIONSCurrent Facility-Administered Medications:cefTRIAXone iv piggyback 2 g in dextrose (iso-osmotic) 50 mL (ROCEPHIN) 2 gINTRAVENOUS q 24 Hdoxycycline 100 mg in D5W 250 mL (VIBRAMYCIN) 100 mg INTRAVENOUS q [address] 40 mg tab(s) (PROTONIX) 40 mg ORAL DAILY (6 AM)potassium chloride 80-120 mEq oral liquid 80-120 mEq ORAL/FEEDING TUBE PRNpotassium chloride iv piggyback 20 mEq in sterile water 100 mL 20 mEqINTRAVENOUS PRNmagnesium sulfate in water 2 g in sterile water 50 ml 2 g INTRAVENOUS PRNsodium phosphate 45 mmol in NaCl 0.9% 250 mL 45 mmol INTRAVENOUS PRNcalcium gluconate 4 g in NaCl 0.9% 250 mL 4 g INTRAVENOUS PRNNaCl 0.9% iv infusion 100 mL/hr INTRAVENOUS CONTINUOUSdextrose 40 % 15 g 15 g ORAL PRNOrglucagon 1 mg injection (GLUCAGEN) 1 mg INTRAMUSCULAR PRNOrdextrose 50% in water 25 mL syringe 12.5 g INTRAVENOUS PRNinsulin regular human injection (short acting) (NovoLIN R,HumuLIN R)SUBCUTANEOUS q 6 Hondansetron (PF) 4 mg injection (ZOFRAN) 4 mg INTRAVENOUS q 6 H PRNiv contrast (radiology procedure) INTRAVENOUS DIRECTED PRNprochlorperazine 5 mg injection (COMPAZINE) 5 mg INTRAVENOUS q 6 H PRNLabs:Recent Labs 150 03/26/1802345NA 139 -- 139 < > -- 137K 3.6 -- 3.2* < > -- 3.8CHLOR 112* -- 108* < > -- 105CO2 23 -- 27 < > -- 27BUN 7 -- 13 < > -- 15CREAT 0.43* -- 0.53* < > -- 0.52*GLUC 162* -- 189* < > -- 310*ANION 8 -- 7* < > -- 9CA 7.3* -- 7.0* < > -- 7.3*ALB -- -- -- -- 1.7* --AST -- -- -- -- 19 --ALT -- -- -- -- 18 --ALKPHOS -- -- -- -- 66 --TBILI -- -- -- -- 1.7* --WBC 4.35 -- 6.14 < > -- 8.91HB 7.5* 7.4* 7.5* < > -- 4.7*HCT 23.4* -- 23.0* < > -- 15.3*PLT 101* -- 107* < > -- 146LACT -- -- -- -- -- 1.1INR 1.00 -- -- -- -- --< > = values in this interval not displayed.Exam:GENERAL: No distress, AlertNEURO: AANDOx3, CN II-XII grossly intactHEENT: normocephalic, atraumaticLUNGS: Unlabored breathing O2 Therapy: Room Air, 95% [id number]: Regular rate and rhythm as aboveABDOMEN: Soft, non-tender, non-distendedEXTREMITIES: FLORES, No deformities, No edemaSKIN: Skin color, texture, turgor normal, No rashes or lesionsASSESSMENT AND PLAN:Active Hospital Problems Diagnosis Date Noted- Obstructive sleep apnea 03/26/2018 Chronic- Diabetes ([facility]) 03/26/2018 Chronic- Nicotine use disorder, F17.2 03/25/2018- Obesity, Class III, BMI >= 40 03/25/2018- Malnutrition of moderate degree ([facility]) 03/25/2018- Anemia 03/24/2018- Atrial fibrillation with RVR ([facility]) 03/24/2018- Pulmonary embolism ([facility]) 03/24/2018- GI bleed 03/24/2018 Overview Note: Added automatically from request for surgery [id number] year old male with GIB, PE s/p IVC Filter, Left Pulm Effusion- mgmt per MICU- C-scope with GI today- plan for Left CT today after scopeAssessment and plan discussed with attending: Dr. GuzmanATURE: Santos Wen MD PATIENT NAME: Joel MatsonDATE: March 27, 2018 : 6:09 AM Pager: [phone] Cagle DO 03/27/2018 12:22 PM Attested Attestation signed by Gerardo Nunez at 03/27/2018 1:34 PM (Updated)[facility] STAFF PHYSICIAN NOTE OF PERSONAL INVOLVEMENT IN CAREI have reviewed the progress note obtained and documented by the resident and Ipersonally participated in the quintana components. I have discussed the case andmanagement of the patient's care. The following comments revise or confirmrelevant quintana components of the note.Interval history:Patient is resting comfortably in bed without any current complaints.Exam:RRRClear to auscultation without wheezing bilaterally anteriorly.Good bowel sounds, soft, nontender, nondistended.Mild peripheral edema bilaterally.Dry, intact skin with good turgor.Data:Reviewed as detailed below.Most recent imaging personally reviewed by myself.IMPRESSION:ACTIVE PROBLEM LISTAnemiaAtrial Fibrillation With Rvr (Hcc)Pulmonary Embolism (Hcc)Nicotine use disorder, F17.2Obesity, Class III, BMI >= 40Malnutrition of Moderate Degree (Hcc)GI BleedDiabetes (Hcc)Obstructive Sleep ApneaAcute blood loss anemiaLoculated left pleural effusionPLAN:IV fluids.PPI.Check serial hemoglobins.Transfuse PRN.Keep NPO.Colonoscopy as per GI.No anticoagulation for now given the acute blood loss anemia, but has an IVCfilter in place.Await chest tube placement as per Cardiovascular/Thoracic Surgery. Checkpleural fluid studies from Pleuravac once it is available.Is stable and OK for transfer to regular medical floor from Pulmonary/CriticalCare standpoint after colonoscopy provided there are no colonoscopic findingsnecessitating ongoing ICU care.This patient has a high probability of sudden, clinically significantdeterioration, which requires the highest level of physician preparedness tointervene urgently. I managed/supervised life or organ supportinginterventions that required frequent physician assessment. I devoted my fullattention to the direct care of this patient for the amount of time indicatedbelow. Time I spent with family or surrogate(s) is included only if thepatient was incapable of providing the necessary information or participatingin medical decision making. Time devoted to teaching and to any procedures Ibilled separately is not included.Patient/Family Updated: Patient, Joel Matson, was updated regarding the goalsof care, medical plan for the day, group segment consultant recommendations, medicaldisposition and current medical condition/prognosis as and if clinicallyindicated. All questions and concerns were answered and addressed at thisjuncture.They were notified on March 27, 2018 at 09:20. The duration of the conversationwas five minutes.PROGNOSIS: GoodCode status: Full Code.Discussed with Registered Nurse, Pharmacist and Residents while performingmultidisciplinary rounds.Critical Care Documentation:The patient has the following organ/system impairment(s):Acute blood loss anemiaTime spent providing critical care services: 20 minutes.SIGNATURE: Gerardo Nunez, [facility] RESPIRATORY INSTITUTEPAGER:[id number] of SERVICE: March 27, 2018TIME of SERVICE: 1:24 PM Medical Intensive Care Progress NoteMay 2017Patient Name: Joel Matson Patient Location: [id number]/[facility]* Date: 03/24/2018 Length of Stay: 3Primary Service: Medical Intensive CareAssessment and plan will be discussed with Dr. Nunez and he will addend thisnote as he sees appropriate. Please await his recommendations.Case background: Patient is a 52 y/o CM w/ a h/o testicular cancer s/pchemoradiation, DM type 2, ANDREW on CPAP who presented to [place] ED on 03/24/18for the complaint of 2-3 weeks of worsening productive cough and left-sidedchest pain after initial improvement with antibiotic treatment by his PCP. Hewent to ED after a near-syncopal event with bladder/bowel incontinence. [place] found to have Hb 4.[address] chest showed moderate leftloculated pleural effusion, left basilar atelectasis vs consolidation, and LLLPE. Also found to be in Afib, started on amio gtt (which was stopped 03/25). [facility] for treatment of acute hypoxic resp failure2/2 pneumonia vs. PE, new-onset A-fib, and severe acute anemia likely due toblood loss. Patient received a total of 4 units pRBC since arrival, maintainingHb ~ 7.5. ID followed and started Rocephin and doxy for suspected pneumonia.03/25: EGD showed 3 small ulcers that are unlikely source of blood loss. Nointervention needed. Planned for colonoscopy. 03/26: Vascular placed IVC filter(note, no thrombus seen on 03/24 US of BLE). 03/27: Colonoscopy per GI. Plan forthoracostomy per CT surgery after.Interval History for 03/27/18:Patient seen and examined in the AM. Admits limb swelling.Denies complaintsdetailed in review of systems below. NPO since midnight. Tolerating colon prepfor colonoscopy at 1:30 PM today. No overnight acute events reported.Review of Systems: PER INTERVAL HISTORY ABOVE. Denies fevers, chills, rigors, malaise, chestpain, orthopnea, dyspnea, nausea, vomiting, abdominal pain, dysuria, hematuria,lightheadedness.Objecti vePresent Condition: 400 500 230709 700BP: 108/51 107/58 115/60 119/59Pulse: 65 67 68 67Resp: 13 15 13 14Temp: 36.4 ?C (97.5 ?F)TempSrc: AxillarySpO2: 95% 98% 97% 97%Weight: 127.8 kg (281 lb 12 oz)Height:PHYSICAL EXAMINATION: Performed with findings detailed below on 03/27/18General: NAD, AANDO x3 , cooperative.Head: Normocephalic. Atraumatic.Eyes: PERRL. EOMI. No scleral icterus noted. Conjunctiva pink.Throat: Oral mucosa moist. No oropharyngeal erythema. No eruptions or exudates.Uvula midline.Cardiovascular: RRR, No M/G/RRespiratory: Lungs CTAB, No W/R/R, No crackles. Diminished at bilateral bases.Abdomen: Obese abdomen. Soft. Non-tender. Non-distended. No palpable masses orhepatosplenomegaly. BSx4, normoactive. No bruits.Extremities: 2+ pitting upper extremity edema. No cyanosis or clubbing.Pulses: Dorsalis pedis, posterior tibial, and radial pulses 2+ bilaterally.Capillary refill < 2 seconds.Neuro: Non-focal exam. Sensation intact in 4 extremities. Strength 4/4 in 4extremities.Current Facility-Administered Medications:cefTRIAXone iv piggyback 2 g in dextrose (iso-osmotic) 50 mL (ROCEPHIN) 2 gINTRAVENOUS q 24 H Keli E Bollin Last Rate: 100 mL/hr at 03/27/18 0831 2 g at03/27/18 0831doxycycline 100 mg in D5W 250 mL (VIBRAMYCIN) 100 mg INTRAVENOUS q 12 H Keli EBollin Last Rate: 250 mL/hr at 03/26/18 1629 100 mg at 03/26/[address] 40 mg tab(s) (PROTONIX) 40 mg ORAL DAILY (6 AM) Holger Marcanoalvino 40 mg at 03/26/18 0515potassium chloride 80-120 mEq oral liquid 80-120 mEq ORAL/FEEDING TUBE PRN Renetta(Res) Tommy Mcallisterotassium chloride iv piggyback 20 mEq in sterile water 100 mL 20 mEqINTRAVENOUS PRN Renetta (Res) MD Esvin Last Rate: 400 mL/hr at 03/26/18 808027 mEq at 03/26/18 1004magnesium sulfate in water 2 g in sterile water 50 ml 2 g INTRAVENOUS PRN Renetta(Res) Jerardo Mcallisterodium phosphate 45 mmol in NaCl 0.9% 250 mL 45 mmol INTRAVENOUS PRN Renetta (ResAleksandr Whittingtonalcium gluconate 4 g in NaCl 0.9% 250 mL 4 g INTRAVENOUS PRN Renetta (Res)MD EsvinNaCl 0.9% iv infusion 100 mL/hr INTRAVENOUS CONTINUOUS Renetta (Res) MD EsvinLast Rate: 100 mL/hr at 03/27/18 0629 100 mL/hr at 03/27/18 0629dextrose 40 % 15 g 15 g ORAL PRN Renetta (Res) MD EsvinOrglucagon 1 mg injection (GLUCAGEN) 1 mg INTRAMUSCULAR PRN Renetta (Felton) MD EsvinOrdextrose 50% in water 25 mL syringe 12.5 g INTRAVENOUS PRN Renetta (Res)MD Esvininsulin regular human injection (short acting) (NovoLIN R,HumuLIN R)SUBCUTANEOUS q 6 H Renetta (Felton) MD Esvin 2 Units at 03/27/18 0616ondansetron (PF) 4 mg injection (ZOFRAN) 4 mg INTRAVENOUS q 6 H PRJessika Jackson (Res)MD Esvin 4 mg at 03/24/18 1250iv contrast (radiology procedure) INTRAVENOUS DIRECTED PRTommy Royrochlorperazine 5 mg injection (COMPAZINE) 5 mg INTRAVENOUS q 6 H PRN Renetta(Res) MD EsvinNotable morning labs:Basic labs as below.Labs:CBC:Recent Labs 03/26/1816WBC 4.35 -- 6.14 -- -- -- 9.23* -- 8.91HB 7.5* 7.4* 7.5* 7.3* 8.1* 6.5* 7.2* 6.3* 4.7*HCT 23.4* -- 23.0* -- -- -- 21.3* -- 15.3*PLT 101* -- 107* -- -- -- 116* -- 146MCV 92.1 -- 90.2 -- -- -- 86.9 -- 94.4COAG:Recent Labs 03/24/1816APTT -- 19.1*INR 1.00 --BMP:Recent Labs 03/26/1802GLUC 162* 189* 207* 310*NA 139 139 139 137K 3.6 3.2* 3.5 3.8CHLOR 112* 108* 108* 105CO2 23 27 26 27ANION 8 7* 9 9BUN 7 13 18 15CREAT 0.43* 0.53* 0.53* 0.52*CHEM:Recent Labs 03/26/1802ALB -- -- -- 1.7* --TPROT -- -- -- 4.8* --CA 7.3* 7.0* 7.1* -- 7.3*HEPATIC:Recent Labs [id number] 66ALT 18AST 19TBILI 1.7*URINALYSIS:No results for input(s): PH, SPGR, UGLUC, UBILI, UKET, UHB, UPROT,UROBIL, UWBC, SSA in the last 168 hours.Invalid input(s): NITRCARDIAC: No results for input(s): CKTEST, CKMB, CKMBP in the last 168hours.TROPONIN@:8,No results found for: BNP:8)@Intake/Output Summary (Last 24 hours) at 03/27/18 0903Last data filed at 03/27/18 0756 Gross per 24 hourIntake 5102 mlOutput 1551 mlNet 3551 mlSerum creatinine: 0.43 mg/dL (L) 03/27/18 0150Estimated creatinine clearance: 265 mL/min (A)Assessment/PlanReviewed in its entirety and amended as appropriate on 03/27/18CardiovascularCentral venous access: None.Summary of pressor usage: None.Echocardiogram findings: None on file.EKG findings: None on file.IV fluid administration: Currently IV 1/2 NS at 100 cc/hrCurrent antihypertensive agents: None.Current anticoagulation / antiplatelet agents: None.Paroxsymal A.fib-Rate improved with amiodarone, gtt stopped after 03/25/18RespiratoryCXR findings: 03/27: Slightly improved left-sided pleural effusion, intervalimprovement of hilar vascular congestion when compared to 03/[address] chest findings: None this admission.Respiratory support measures: 97% on room air.Breathing treatments in use: None.Thoracic surgery followin/20: Recommend large-bore chest tube. INR in AM.Acute respiratory failure-O2 NC wean as tolerated.Pneumonia with loculated pleural effusion-Chest surgery consult for chest tube- ID following. See microbiology and infectious below.InfectiousAntibiotic allergies: None.Antibiotics in use: Ceftriaxone 2 g IV qd ; Doxy 100 mg q12h (both Day 2)Microbiology data summary: S.pneumo Ag postive, ULeg negative, RespCx pending,Histo Ag pending ; MRSA nares negative.Infectious diseases followin/20: Started ceftriaxone and doxy ; send pleuralfluid for Cx and cytology ; Follow data (above)Pneumonia with management as noted above.Renal / GUFoley in place?: None.Diuretics in use: None.Shift total output: 1.3 LShift net I/O: + 5,246Estimate of recent hourly output: ~200 - 250 cc/hrWeight change since admission: + 7 kg.Consider gentle diuresis to address fluid excess or reducing IVF flow rate.NeuroSedation: None.Head imaging: None.No current concern for related abnormal data or patient history on presentadmission.Gastrointestinal GI prophylaxis: Protonix 40 mg po qdGI tubes and feeds / current diet: NPO since midnight.Gastroenterology followin/20: Colonoscopy today 03/27 after NPO at midnightand AM colon prep.GI bleed- monitor HgB, transfuse <7- EGD yesterday did not reveal bleeding- GI following- Protonix daily- IV fluids- Colonoscopy in the PM 03/27.Endocrine / MetabolicInsulin orders: Regular SSI (2 units for 201-250)HematologicDVT prophylaxis: Bilateral SCDs - No anticoagulant due to GIB / blood lossanemia.Transfusions this admission: Total of 4 units RBC transfused, last on 03/25.H/O PE/DVT-anticoagulation contraindicated due to GI bleed- IVC filter placed 03/26/18SubjectivePAST MEDICAL HISTORYDiagnosis Date- Testicular cancer (HCC) 2003No current facility-administered medications on file prior to encounter.Current Outpatient Prescriptions on File Prior to Encounter:COMPOUNDED PRESCRIPTION testosterone cream for testic CACOMPOUNDED PRESCRIPTION glucophage dose not knownExenatide 10 mcg/0.04 mL SUBCUTANEOUS PnIj Take one(1) tablet two(2) timesdaily.COMPOUNDED PRESCRIPTION diabetic med, name/dose unknownCOMPOUNDED PRESCRIPTION lexapro, dose unknownSigned: Ivan Cagle DO, PGY-1Pager: [phone] Vjke: March 27, 2018Recommendations are not finalized until co-signed by Staff physician. Removed attestation signed by Gerardo Nunez at 03/27/2018 1:31 PM (removed byGerardo Nunez at 03/27/2018 1:34 PM)[facility] STAFF PHYSICIAN NOTE OF PERSONAL INVOLVEMENT IN CAREI have reviewed the progress note obtained and documented by the resident and Ipersonally participated in the quintana components. I have discussed the case andmanagement of the patient's care. The following comments revise or confirmrelevant quintana components of the note.Interval history:Patient is resting comfortably in bed without any current complaints.Exam:RRRClear to auscultation without wheezing bilaterally anteriorly.Good bowel sounds, soft, nontender, nondistended.Mild peripheral edema bilaterally.Dry, intact skin with good turgor.Data:Reviewed as detailed below.Most recent imaging personally reviewed by myself.IMPRESSION:ACTIVE PROBLEM LISTAnemiaAtrial Fibrillation With Rvr (Hcc)Pulmonary Embolism (Hcc)Nicotine use disorder, F17.2Obesity, Class III, BMI >= 40Malnutrition of Moderate Degree (Hcc)GI BleedDiabetes (Hcc)Obstructive Sleep ApneaAcute blood loss anemiaLoculated left pleural effusionPLAN:IV fluids.PPI.Check serial hemoglobins.Transfuse PRN.Keep NPO.Colonoscopy as per GI.Await chest tube placement as per Cardiovascular/Thoracic Surgery. Checkpleural fluid studies from Pleuravac once it is available.Is stable and OK for transfer to regular medical floor from Pulmonary/CriticalCare standpoint after colonoscopy provided there are no colonoscopic findingsnecessitating ongoing ICU care.This patient has a high probability of sudden, clinically significantdeterioration, which requires the highest level of physician preparedness tointervene urgently. I managed/supervised life or organ supportinginterventions that required frequent physician assessment. I devoted my fullattention to the direct care of this patient for the amount of time indicatedbelow. Time I spent with family or surrogate(s) is included only if thepatient was incapable of providing the necessary information or participatingin medical decision making. Time devoted to teaching and to any procedures Ibilled separately is not included.Patient/Family Updated: Patient, Joel Matson, was updated regarding the goalsof care, medical plan for the day, group segment consultant recommendations, medicaldisposition and current medical condition/prognosis as and if clinicallyindicated. All questions and concerns were answered and addressed at thisjuncture.They were notified on March 27, 2018 at 09:20. The duration of the conversationwas five minutes.PROGNOSIS: GoodCode status: Full Code.Discussed with Registered Nurse, Pharmacist and Residents while performingmultidisciplinary rounds.Critical Care Documentation:The patient has the following organ/system impairment(s):Acute blood loss anemiaTime spent providing critical care services: 20 minutes.SIGNATURE: Gerardo Nunez [facility] RESPIRATORY INSTITUTEPAGER:[id number] of SERVICE: March 27, 2018TIME of SERVICE: 1:24 PM Previous VersionKandace Moctezuma, RN, RN 03/27/2018 2:38 PM Signed Nursing Progress NotePatient Name: Joel HallLukeN: [id number] Location: [id number]/[place]-SICU-480* Tap water enema given per order of .This note was completed by: Silvano Lucero, RN, RN 03/27/2018 10:02 AM Signed Nursing Progress NotePatient Name: Joel BrunsonRN: [id number] Location: [id number]/[place]-SICU-480* Rounds with , residents, RN, and pharm D.This note was completed by: Silvano Lucero, RN, RN 03/27/2018 11:33 AM Signed Nursing Progress NotePatient Name: Joel Rivers: [id number] Location: [place] [address]* RN attempted 3 IV's, unsuccessful. Resident notified that pt has no access.Picc team notified. Picc team will attempt peripheral IV later today.This note was completed by: Lexi Lucero III, MD 03/27/2018 4:13 PM SignedINFECTIOUS DISEASE CONSULT PROGRESS NOTESERVICE DATE: 03/27/2018SERVICE TIME: 12:17 PMCONSULTING SERVICE: ICUThe patient is a 52-year-old man with past medical history of DM, ANDREW, historyof testicular caner. [facility], severe dyspnea and A fib with Rapid Ventricular Rate. Patientwas found to have a loculated left pleural effusion with left lower lobeinfiltrate and left lower lobe pulmonary embolism. Due to to very low HB andsuspected GI bleed patient could not be anticoagulated. IVC filter was placedyesterday by vascular. Patient got an EGD which showed 3 gastric ulcer butunlikely the source of bleeding is scheduled to get a colonoscopy today and thenchest tube placed for pleural effusion. Was initially on Piperacillin/Tazobactamand now on Ceftriaxone and doxycycline.SubjectiveINTERVAL HISTORY OF PRESENT ILLNESS:No overnight events. Patient has mild cough better than before and left sidedneck pain. No chest pain.Current Facility-Administered Medications:pantoprazole 40 mg injection (PROTONIX) 40 mg INTRAVENOUS DAILY (6 AM)NaCl 0.45% iv infusion 100 mL/hr INTRAVENOUS CONTINUOUScefTRIAXone iv piggyback 2 g in dextrose (iso-osmotic) 50 mL (ROCEPHIN) 2 gINTRAVENOUS q 24 Hdoxycycline 100 mg in D5W 250 mL (VIBRAMYCIN) 100 mg INTRAVENOUS q 12 Hpotassium chloride 80-120 mEq oral liquid 80-120 mEq ORAL/FEEDING TUBE PRNpotassium chloride iv piggyback 20 mEq in sterile water 100 mL 20 mEqINTRAVENOUS PRNmagnesium sulfate in water 2 g in sterile water 50 ml 2 g INTRAVENOUS PRNsodium phosphate 45 mmol in NaCl 0.9% 250 mL 45 mmol INTRAVENOUS PRNcalcium gluconate 4 g in NaCl 0.9% 250 mL 4 g INTRAVENOUS PRNdextrose 40 % 15 g 15 g ORAL PRNOrglucagon 1 mg injection (GLUCAGEN) 1 mg INTRAMUSCULAR PRNOrdextrose 50% in water 25 mL syringe 12.5 g INTRAVENOUS PRNinsulin regular human injection (short acting) (NovoLIN R,HumuLIN R)SUBCUTANEOUS q 6 Hondansetron (PF) 4 mg injection (ZOFRAN) 4 mg INTRAVENOUS q 6 H PRNprochlorperazine 5 mg injection (COMPAZINE) 5 mg INTRAVENOUS q 6 H PRNObjectivePHYSICAL EXAM:Patient Vitals for the past 24 hrs: BP Temp Temp src Pulse Resp SpO2 Kwgkqk11/21/18 1000 117/62 - - 71 16 99 % -03/27/18 0900 127/72 - - 69 14 98 % -03/27/18 0800 112/82 - - 75 16 99 % -03/27/18 0700 119/59 - - 67 14 97 % -03/27/18 0600 115/60 - - 68 13 97 % -03/27/18 0500 107/58 - - 67 15 98 % -03/27/18 0400 108/51 36.4 ?C (97.5 ?F) Axillary 65 13 95 % 127.8 kg (281 lb 12oz)03/27/18 0300 108/60 - - 75 18 97 % -03/27/18 0200 105/61 - - 75 19 97 % -03/27/18 0100 111/63 - - 71 14 97 % -03/27/18 0000 95/73 36.5 ?C (97.7 ?F) Axillary 76 20 98 % -03/26/18 2300 102/62 - - 95 23 98 % -03/26/18 2200 (!) 79/63 - - 96 26 100 % -03/26/18 2100 123/59 - - 78 19 98 % -03/26/181999 (!) 97/42 36.6 ?C (97.9 ?F) Axillary 74 18 100 % -03/26/18 1900 120/65 - - 76 19 97 % -03/26/18 1800 106/69 - - 73 18 97 % -03/26/18 1700 88/54 - - 84 17 98 % -03/26/18 1600 109/63 36.6 ?C (97.9 ?F) - 78 19 99 % -03/26/18 1500 132/81 - - 77 19 99 % -03/26/18 1400 120/71 - - 72 18 98 % -03/26/18 1330 115/62 - - 71 16 98 % -03/26/18 1300 124/68 - - 71 15 99 % -Body mass index is 42.84 kg/m?.GENERAL: Alert, no distress, cooperativeSKIN: Skin color, texture, turgor normal. No rashes or lesions.OROPHARYNX: Lips, mucosa, and tongue are normal.Teeth and gums, normal.Oropharynx normal.NECK: No jugulovenous distention, No carotid bruits, Carotid pulse normalcontour, SuppleLUNGS: Decreased breath sounds on the left. Crackles present.CARDIAC: Normal S1 and S2; no rubs, murmurs, or gallopsABDOMEN: Abdomen soft, non-tender, BS normal, No masses or organomegalyEXTREMITIES: Extremities normal, no deformities, edema, clubbing or skindiscoloration. Good capillary refill., No ulcersNEURO: Alert, oriented X 3, Gait normal. Non-focal. Reflexes normal andsymmetric. Sensation grossly intact., Cranial nerves II-XII intactPULSES: 2+ radial, 2+ carotidDATA:Diagnostic tests reviewed for today's visit:Component Latest Ref Rng AND Units 03/26/2018 03/26/2018 03/26/201803/27/2018 2:00 AM 4:00 PM 11:27 PM 1:50 AM 6:16 AM 11:34 AMWBC 4.23 - 9.07 thou/cmm 6.14 4.35RBC 4.63 - 6.08 mil/cmm 2.55 (L) 2.54 (L)HGB 13.7 - 17.5 g/dL 7.5 (L) 7.4 (L) 7.5 (L)Hematocrit 40.1 - 51.0 % 23.0 (L) 23.4 (L)MCV 83.2 - 95.6 fl 90.2 92.1MCH 25.7 - 32.2 pg 29.4 29.5MCHC 32.3 - 36.5 % 32.6 32.1 (L)RDW 11.6 - 14.4 % 18.4 (H) 20.0 (H)RDW-SD 36.1 - 45.8 fl 48.0 (H) 51.3 (H)Platelet Count 141 - 365 thou/cmm 107 (L) 101 (L)MPV 8.7 - 12.0 fl 9.2 9.6Nucleated RBC % 0.0 - 0.2 % 1.6 (H) 0.5 (H)Nucleated RBC Absolute 0.00 - 0.01 thou/cmm 0.10 (H) 0.02 (H)Sodium 136 - 145 mEq/L 139 139Potassium 3.5 - 5.1 mEq/L 3.2 (L) 3.6Chloride 98 - 107 mEq/L 108 (H) 112 (H)CO2 21 - 32 mEq/L 27 23Glucose 70 - 99 mg/dL 189 (H) 162 (H)BUN 7 - 18 mg/dL 13 7Creatinine 0.67 - 1.17 mg/dL 0.53 (L) 0.43 (L)Calcium 8.5 - 10.1 mg/dL 7.0 (L) 7.3 (L)Anion Gap 8 - 16 7 (L) 8Prothrombin Time 9.3 - 11.9 sec 10.6INR 1.00eGFR >60mL/min/1.73m2 >60 >60STREP PNEUMONIAE AG Positive for pneumococcal pneumoniaLEGIONELLA AG, URINE Presumptive negative for L. pneumophilia serogroup 1antigen . . .GLUCOSE METER 70 - 99 mg/dL 189 (H) 157 (H) 161 (H)Impression/Recommendations1. Loculated left pleural effusion. Likely secondary to LLL Pneumonia secondaryleft lower Pulmonary Embolism.- Patient to get Chest tube placed today. Send for pleural studies.- urine strep Pnemo positive.- Continue with Ceftriaxone and doxycycline. Patient received one dose ofPiperacillin/Tazobactam- IVC filter in place.2. Severe anemia, attributed to GI bleeding.- awaiting colonoscopy3. History of testicular cancer, treated with resection and radiation therapy.4. Diabetes mellitus.5. Atrial fibrillation.- Amio stopped.SIGNATURE: Shruthi Carmichael MD PATIENT NAME: Joel MatsonDATE: March 27, 2018 : 12:16 PM PAGER/CONTACT #: [phone] saw and evaluated the patient. Discussed with the resident and agree withresident's findings and plan as documented in the resident's note.Concerned for left sided empyema related to S. pneumo pneumonia.Continue doxycycline plus ceftriaxone. Once cultures available from pleuralfluid then will narrow antibiotics.Will need 4-6 weeks of oral therapy.SIGNATURE: John Hernandez III, MD PATIENT NAME: Joel MatsonDATE: March 27, 2018 : 4:12 PM PAGER/CONTACT #: [phone] Eve MCNAIR PHARMACIST 03/27/2018 3:22 PM SignedMEDICATION HISTORY AND MEDICATION RECONCILIATIONPatient Name:Jorge BrunsonRN: [id number]: 1965Source of history:Pharm[facility] records: [facility] ([place]) and [facility]RSMedication Nonadherence Identified: No barriers notedThe above information represents the best possible medication history: YesReconciliation completed? NoAdditional comments: Please note the following changes to the initial PTAmedication list:-Removed 4 compounded prescriptions (incomplete details provided; from08/01/2007)-Removed exanatide (incomplete details provided; from 08/01/2007)-Added all medications belowOf note:-Cefdinir 300 mg BID x 10 days, ZPak, Tamiflu, and prednisone (filled at [facility] on 03/03/18)-Baclofen, gabapentin, diclofenac were only for a 14-day supply (filled at [facility] on 03/10/18)-Valtrex filled 03/10/18 for a 1-week supply-Guaifenesin AC cough syrup 10 mL every 4 hours as needed for cough (250 mL;6-day supply) filled 03/03/18.Please see individual medications for comments/last fill dates.Allergies: ALLERGIESNo Known AllergiesPreferred Pharmacy: [facility].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 Yesinsulin degludec-liraglutide (XULTOPHY) 100 unit-3.6 mg/mL Inject 50 Unitssubcutaneously once daily. Do not mix with other insulins. Yestestosterone (ANDROGEL) 20.25 mg/1.25 gram (1.62 %) glpm Apply 2 pumps asdirected once daily. YesmetFORMIN (GLUCOPHAGE) 1,000 mg tablet Take 1,000 mg by mouth twice daily withmeals. Yeslinagliptin (TRADJENTA) 5 mg tab Take 1 tablet by mouth once daily. Yesrosuvastatin (CRESTOR) 40 mg tablet Take 40 mg by mouth daily at bedtime. Yeslosartan (COZAAR) 100 mg tablet Take 100 mg by mouth once daily. Yesdiclofenac, EC, (VOLTAREN) 50 mg EC tablet Take 50 mg by mouth twice daily. Withfood Filled 03/10/18 for a 14-day supply only. Yesbaclofen (LIORESAL) 10 mg tablet Take 10 mg by mouth daily at bedtime. Filled03/10/18 for a 14-day supply only. Yesgabapentin (NEURONTIN) 400 mg capsule Take 400 mg by mouth three times daily.Filled 03/10/18 for a 14-day supply only. Yesescitalopram oxalate (LEXAPRO) 10 mg tablet Take 10 mg by mouth once daily. Yesalbuterol HFA (VENTOLIN HFA) 90 mcg/actuation inhaler Inhale 2 Puffs asinstructed every 4 hours as needed for Wheezing/Shortness of Breath. Valeria MCNAIR, PHARMACISTMay 2017 2:53 PMSjanay Mays, RN, RN 03/27/2018 3:14 PM AddendumCARE MANAGEMENT: ASSESSMENT AND DISCHARGE PLANSERVICE DATE: 03/27/2018SERVICE TIME: 3:04 PMPRIMARY CARE PHYSICIAN:katherine Pinto Chi [phone]: NoneADMISSION STATUS: InpatientMEDICAL:Patient/Represen tative Stated Goals:To return home to life as it wasHealth Insurance: BLUE ACCESS PPOAnthemHealth Issues Impacting Discharge Plan: NoneLast Admission Date: noneIs this Within the Past 30 days? NoAdvance Directive:Health Literacy:1. How often do you need to have someone help you when you read instructions,pamphlets, or other written material from your doctor or pharmacy? Never - 12. How confident are you filling out medical forms by yourself? Extremely - 1If Patient scores > 3 on either question, the following interventions were putinto place:Patient did not score > 3FUNCTIONAL AND COGNITIVE/BEHAVIORALPRIOR TO ADMISSION:Baseline Mental Status: Alert AND Oriented, Person, Place , Time and SituationFunctional Status: IndependentDoes Patient Currently Receive Any Community Services or Home Care? NoneEquipment Prior to Admission: NoneHas the Patient Been in a Retirement Facility in the Past 30 days? NoSOCIAL:Living Arrangement: HomeLives With: SpouseFinancial Resources: Employed: .Primary Contact: Extended Emergency Contact InformationPrimary Emergency Contact: Varun Matson Vjaezrta: SonSecondary Emergency Contact: Rosaura Matson Rikkwlty: SpouseSupportive: YesOther Important Patient Contacts: NoneCaregiver Assessment:Caregiver is ready, willing and able to meet the patient's needs as recommendedby the inter-professional team? YesPatient's transition needs and plan for meeting these needs: noDoes the patient have an acute stroke diagnosis, or has the patient had a strokeduring this admission? NoMedication Adherence:I am convinced of the importance of my prescription medication: Agree completely- 0I worry that my prescription medication will do more harm than good to meDisagree mostly - 0I feel financially burdened by my hjc-ag-aqsviw expenses for my prescriptionmedication: Agree somewhat - 0Patient is categorized as low risk < 2Are you interested in bedside delivery of your medications? NoFood Concerns:In the Last Month, Have You had Trouble Getting Food? No trouble getting foodDuring the Last Month, Have You Worried Whether Your Food Would Run Out BeforeYou Had Enough Money to Buy More? NoIs the Patient Psychosocially Complex? NoASSESSMENT AND PLAN:Medical Needs: NonePsychosocial Needs: NoneFREEDOM OF CHOICE EXPLAINED:N/APOTENTIAL TRANSITION PLANSTo Be DeterminedPt's pharmacy [facility] [place]SIGNATURE: Monica Mays RN PATIENT NAME: Joel MatsonDATE: March 27, 2018 : 3:04 PM PAGER/CONTACT #: [phone] VersionKandace Moctezuma RN, RN 03/27/2018 3:44 PM Signed Nursing Progress NotePatient Name: Joel BrunsonRN: [id number] Location: [place] [address]/[place] [address]* Colonoscopy done at bedside per .This note was completed by: Kandace Moctezuma RN Normal [facility] Haptoglobinon 03-24-2018 Haptoglobin 153.0 mg/dL Normal 30.0-200.0 [facility] Comment on above: Performed By: #### G FR ####[place] [address] Hemogramon 03-24-2018 Erythrocyte distribution width Auto Ratio (RBC) 18.1 % High 11.6-14.4 [facility] Comment on above: Performed By: #### C BC1 ####[place] [address] Erythrocytes (RBC) 1.62 mil/cmm Low 4.63-6.08 [facility] Comment on above: Performed By: #### C BC1 ####[place] [address] Hematocrit (HCT) 15.3 % Critically low 40.1-51.0 [facility] Comment on above: Performed By: #### C BC1 ####[address], [place] [address] Hemoglobin mass conc (Bld) 4.7 g/dL Critically low 13.7-17.5 [facility] Comment on above: Performed By: #### C BC1 ####[place] [address] MCH 29.0 pg Normal 25.7-32.2 [facility] Comment on above: Performed By: #### C BC1 ####[place] [address] MCHC mass conc (RBC) 30.7 % Low 32.3-36.5 [facility] Comment on above: Performed By: #### C BC1 ####[place] [address] MCV 94.4 fL Normal 83.2-95.6 [facility] Comment on above: Performed By: #### C BC1 ####[place] [address] Nucleated erythrocytes 0.18 thou/cmm High 0.00-0.01 [facility] Comment on above: Performed By: #### C BC1 ####[place] [address] Nucleated RBC % 2.0 % High 0.0-0.2 [facility] Comment on above: Performed By: #### C BC1 ####[place] [address] Platelet mean volume (PMV) 9.4 fL Normal 8.7-12.0 [facility] Comment on above: Performed By: #### C BC1 ####[address] [address] Platelets 146 thou/cmm Normal 141-365 [facility] Comment on above: Performed By: #### C BC1 ####[place] [address] RDW SD 50.6 fl High 36.1-45.8 [facility] Comment on above: Performed By: #### C BC1 ####[place] [address] WBC (Leukocytes) 8.91 thou/cmm Normal 4.23-9.07 [facility] Comment on above: Performed By: #### C BC1 ####[address] [address] Hepatic Panelon 03-24-2018 Alkaline phosphatase (ALP) 66 U/L Normal 46-116 [facility] Comment on above: Performed By: #### H EPAP ####[address] [address] Protein 4.8 g/dL Low 6.4-8.2 [facility] Comment on above: Performed By: #### H EPAP ####[address] [address] Bilirubin Ql (U) 1.7 mg/dL High 0.2-1.0 [facility] Comment on above: Performed By: #### H EPAP ####[address] [address] Alanine aminotransferase (ALT) 18 U/L Normal 12-78 [facility] Comment on above: Performed By: #### H EPAP ####[address] [address] Aspartate aminotransferase (AST) 19 U/L Normal 9-37 [facility] Comment on above: Performed By: #### H EPAP ####[address] [address] Bilirubin (total) 0.35 mg/dL High 0.00-0.20 [facility] Comment on above: Performed By: #### H EPAP ####[address] [address] Albumin 1.7 g/dL Low 3.4-5.0 [facility] Comment on above: Performed By: #### H EPAP ####[address] [address] Hgbon 03-24-2018 Hemoglobin mass conc (Bld) 6.3 g/dL Critically low 13.7-17.5 [facility] Comment on above: Performed By: #### G FR ####[place] [address] LD,Total Bloodon 03-24-2018 LD,Total Blood 185 U/L Normal 84-246 [facility] Comment on above: Performed By: #### L DH ####[place] [address] Lactic Acidon 03-24-2018 Lactate 1.1 mmol/L Normal 0.4-2.0 [facility] Comment on above: Performed By: #### L AC ####[place] [address] MDRD GFRon 03-24-2018 eGFR (non-black) mL/min/{1.73_m2} Normal >60mL/m in/ 1.73m2 [facility] Comment on above: Result Comment: If t he patient is , multiply the result by 1.210. Performed By: #### G FR ####[place] [address] MRSA Screenon 03-24-2018 MRSA Screen Test performed at [facility] No MRSA detected. Normal [facility] Comment on above: Performed By: #### C BC1 ####[place] [address] RBC Productson 03-24-2018 Xmatch Unit 1 see below Normal [facility] Comment on above: Result Comment: Comp atible Performed By: #### G FR ####[place] [address] Xmatch Unit 1 see below Normal [facility] Comment on above: Result Comment: Comp atible Performed By: #### G FR ####[place] [address] Xmatch Unit 1 see below Normal [facility] Comment on above: Result Comment: Comp atible Performed By: #### R BCPS ####[place] [address] Type and Screenon 03-24-2018 ABO group B Normal [facility] Comment on above: Performed By: #### T &S ####[address], [place] [address] Antibody Screen Negative Normal [facility] Comment on above: Performed By: #### T &S ####[place] [address] Comment See Below Normal [facility] Comment on above: Result Comment: Scre en &/or Xmatch expires in 3 days at 12 midnight. Redrawpatient at that time. Performed By: #### T &S ####[place] [address] RH Type Positive Normal [facility] Comment on above: Performed By: #### T &S ####[place] [address] Otheron 09-07-2005 CONVERTED ELECTRONIC SIGNATURE CAROLINA DICK M.D., PATHOLOGIST (Electronic signature on file) Final Signed Out: 09/07/2005 15:20 [facility] CONVERTED FINAL DIAGNOSIS A. 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 NEGATIVE MARGIN OF EXCISION (SEE COMMENT). COMMENT - The tumor measures 3.5 cm in greatest dimension and is confined to the testicle. There is a prominent lymphocytic infiltrate associated with the tumor. 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 Vascular invasion is not definitely identified. The spermatic cord margin is negative. Serum tumor markers are unavailable. Dr Nicole Ruby has reviewed this case and she agrees with the interpretation. According to the AJCC Cancer Staging Manual, Sixth Edition, the pathologic stage is T1, NX, MX. B. LESION OF SCALP, EXCISION - INTRADERMAL NEVUS. 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 FOCUS OF PROBABLY VASCULAR INVASION IS IDENTIFIED. NEGATIVE MARGIN OF EXCISION. (SEE COMMENT) COMMENT: The tumor measures 5.5 cm in greatest dimension and is confined to the testicle. There is a promiment lymphocytic infiltrate associated with the tumor. 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 There is a focus of tumor within the lumen of a large caliber vessel. This is interpreted as vascular invasion. The spermatic cord margin is negative. Serum tumor markers are unavailable. Dr. Nicole Ruby has reviewed this case and she agrees. According to the AJCC Cancer Staging Manual, 6th Edition, the pathologic stage is T2, NX, MX. [facility] CONVERTED ORDERING PROVIDER Ordering Provider: ALEXUS CARABALLO [facility] Encounters Encounter Date Encounter Type Care Provider Facility Start: 03-25-2018 End: 03-25-2018 Patient encounter procedure David Cerrato Work Phone: [facility] Start: 03-25-2018 Results Only David Cerrato Work Phone: [facility] Start: 03-24-2018 End: 04-04-2018 [facility] Start: 09-03-2005 End: 09-03-2005 Patient encounter procedure Alexus Caraballo Work Phone: [facility] Start: 09-03-2005 Results Only Alexus Caraballo Work Phone: [facility] Start: 07-30-2005 End: 07-30-2005 Patient encounter procedure Alexus Caraballo Work Phone: [facility] Start: 07-30-2005 Results Only Alexus Caraballo Work Phone: [facility] Procedures Date Procedure Procedure Detail Performing Clinician Start: 03-25-2018 CONVERTED SURGICAL PATHOLOGY David Cerrato Work Phone: Start: 09-03-2005 CONVERTED SURGICAL PATHOLOGY Alexus Caraballo Work Phone: Start: 07-30-2005 CONVERTED SURGICAL PATHOLOGY Alexus Caraballo Work Phone: Plan of Treatment Date Care Activity Detail Author Start: 07-08-2020 Influenza vaccination INFLUENZA (#1) [facility] Start: 2016 SHINGRIX VACCINE (1 of 2) SILVA GRIX VACCINE (1 of 2) [facility] Start: 2016 Tuberculosis screening COLOREC BECKY CANCER SCREENING,SEE MODIFIER [facility] Start: 1985 Urine microalbumin profile DTAP,TDAP ,TD (1 - Tdap) [facility] Start: 1984 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 DISEASE VISIT ANNUAL PCP TEAM CHRONIC DISEASE VISIT [facility] Start: 1984 Hepatitis B surface antibody level LDL CHOLESTEROL [facility] Start: 1984 HEPATITIS C SCREENING HEPATITIS C SC ARTEMIO [facility] Start: 1984 [facility] Start: 1982 ONE PNEUMOVAX PRIOR TO AGE 65 ONE PNEUMOVAX PRIOR TO AGE 65 [facility] Start: 1976 [object Object] DIABETIC FOOT EXAM [facility] Start: 1976 Hepatitis B screening URINE AL BUMIN:CREATININE RATIO [facility] Start: 1976 Hepatitis C antibody , confirmatory test DILATED RETINAL EXAM [facility] Start: 1971 HbA1c (Bld) [Mass fraction] HBA1C [facility] Payers Date Payer Category Payer Unknown [employer] P[employer] [id number] 2017-Present PPO [id number] 2007 Self-pay [id number] Unknown [id number] Social History Date Type Detail Facility Tobacco smoking stat [facility] Unknown if ever smoked [facility] Sex Assigned At Not on file [facility] Start: 08-01-2007 Tobacco smoking stat [facility] Unknown if ever smoked [facility] Start: 08-01-2007 Tobacco use and exposure Current use r [facility] History of tobacco use Snuff User [facility] Start: 08-01-2007 Alcohol intake Current drinke r of alcohol (finding) [facility] Summary Purpose Family History No Family History Records FoundNo Family History Records Found Advance Directives Documents on File Type Date Recorded 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 Advance Directive(s) 03/24/2018 10:33 AM Additional Source Comments (unrecognized sect ion and content) No Status Records FoundNo Status Records Found INFORMATION SOURCE (unrecogn ized section and content) DATE CREATED AUTHOR 04/26/2018 [facility] DATE CREATED AUTHOR AUTHOR'S ORGANIZ ATION 05/23/2018 [facility] Comments (unrecognize d section and content) In the event this informatio n is protected by the Federal Confidentiality of Alcohol and Drug Abuse Patient Records regulations: The Federal rules restrict any use of the information to criminally investigate or prosecute any alcohol or drug abuse patient.[facility] the event this information is protected by the Federal Confidentiality of Alcohol and Drug Abuse Patient Records regulations: The Federal rules restrict any use of the information to criminally investigate or prosecute any alcohol or drug abuse patient.[facility] the event this information is protected by the Federal Confidentiality of Alcohol and Drug Abuse Patient Records regulations: The Federal rules restrict any use of the information to criminally investigate or prosecute any alcohol or drug abuse patient.[facility] FOR RECORDS PERTAINING TO PATIENTS WHO ARE OR HAVE BEEN ENROLLED IN A CHEMICAL DEPENDENCY/SUBSTANCEABUSE PROGRAM, SOME INFORMATION MAY BE OMITTED. This clinical summary was aggregated from multiple sources. Caution should be exercised in using it in the provision of clinical care. This summary normalizes information from multiple sources, and as a consequence, information in this document may materially change the coding, format and clinical context of patient data. In addition, data may be omitted in some cases. CLINICAL DECISIONS SHOULD BE BASED ON THE PRIMARY CLINICAL RECORDS. [email or web address] provides no warranty or guarantee of the accuracy or completeness of information in this document.
--- NOTE | 2024-09-06 06:38 | CT_ITS ---
STUDY: CT ABDOMEN AND PELVIS WITH AND WITHOUT CONTRAST REASON FOR EXAM: Male, 58 years old. NAFLD -- Triple phase, HCC protocol, need creatinine 1 WK. History of testicular carcinoma. RADIATION DOSAGE (If Supplied By Facility): CTDIvol = ( 27.77 ) mGy, DLP = ( 3576.05 ) mGycm TECHNIQUE: Transaxial images were obtained from the dome of the diaphragm to the symphysis pubis without oral contrast. IV 100mL Isovue-300 was administered. Sagittal and coronal images were reconstructed. Individualized dose optimization techniques were used for this CT. COMPARISON: Comparison is made with prior study dated April 26, 2018. FINDINGS: Questionable focal mediastinal mass within the posterior medial segment of the left lower lobe. The visualized portions of the heart are within normal limits. There is decreased attenuation of the liver consistent with steatosis. Hepatomegaly. There are multiple small gallstones. Borderline splenomegaly. Normal pancreas. Findings suggestive of varices in the region of the splenic hilum. Normal bilateral adrenal glands. Normal right kidney. 3.5 mm nonobstructive calculus in the lower pole calyx of the left kidney. Normal visualized stomach. Normal small intestine. There are scattered colonic diverticula consistent with diverticulosis. The appendix is visualized and appears normal. There is scattered atherosclerotic calcification of the abdominal aorta, without a demonstrated aneurysm. Normal inferior vena cava. Normal retroperitoneum. Normal urinary bladder. There are prostatic calcifications. Normal abdominal wall. There are diffuse degenerative changes of the visualized lumbar spine. CT/CT Abd/Pelvis W/WO Contrast IMPRESSION: Hepatomegaly and diffuse fatty fixation of the liver. Findings suggestive of a varices in the region of the splenic hilum. Hepatomegaly and diffuse fatty infiltration. Multiple small gallstones. Nonobstructive contrast in the lower pole calyx of the left kidney. Electronically Signed: Travis oBrges MD at 13:37 EDT ,
== END | disposition home or self-care (01) ==
LOC: CT 06:35
PROVIDERS: PCP Family Medicine Geriatric Medicine; Referring Provider Internal Medicine; Visit Provider Internal Medicine
DX: D69.6 Thrombocytopenia, unspecified (principal); K76.0 Fatty (change of) liver, not elsewhere classified
CPT/HCPCS: 74178; Q9967

== ENCOUNTER → 2024-09-26 | Outpatient (CLI) | payer OTHER, SELFPAY ==
--- NOTE | 2024-09-26 08:40 | NM_ITS ---
CLINICAL: 58-year-old male with history of right upper quadrant abdominal pain, cholelithiasis. RADIONUCLIDE HEPATOBILIARY SCINTIGRAPHY COMPARISON: Abdominal ultrasound report 08/22/2024, CT of the abdomen-pelvis report 09/06/2024 FINDINGS: Following the intravenous administration of 5.4 mCi of 99m Tc Mebrofenin, hepatobiliary images reveal: 1. Relatively prompt and homogeneous radiopharmaceutical concentration is noted by a normal sized liver. No parenchymal defects are identified. 2. Gallbladder activity is identified at 45 minutes post radiopharmaceutical administration. 3. Small intestinal tract is observed at 30 minutes following tracer provision. 4. Washout of the radiopharmaceutical by the hepatic parenchyma appears qualitatively normal. Cholecystokinin (0.02 ug/kg) was administered intravenously over a 30-minute period. The post CCK gallbladder ejection fraction calculated at 22 minutes following Cholecystokinin administration was noted to be 11.0 % (normal greater than 35%). NM/Hepatobilliary Img w/Pharm Int IMPRESSION: 1. ABNORMAL 99m Tc Mebrofenin hepatobiliary imaging examination with Cholecystokinin. A. A gallbladder ejection fraction calculated to be less than 35% following the administration of Cholecystokinin is consistent with the presence of functional hepatobiliary disease (gallbladder and/or sphincter of Oddi dyskinesia) and/or organic hepatobiliary disease (chronic acalculous cholecystitis and/or cystic duct syndrome) in patients with intermediate to high pretest probabilities of hepatobiliary illness. (Itzel Kirkland et al, Journal of Nuclear Medicine 32:1695, 1991). Electronically Signed: David Null DO at 10:51 EST ,
[2024-09-26 09:36] LABS: Absolute Lymphocyte Count 1.43 X10^3/uL (0.83-4.51); Absolute Neutrophil Count 4.4 X10^3/uL (2.0-7.7); Basophil# 0.03 X10^3/uL; Basophil% 0.5 % (0-1); Eosinophil# 0.13 X10^3/uL; Hematocrit 39.5 % (40-54); Hemoglobin 12.5 g/dL (13.0-16.5); Lymphocyte # 1.43 X10^3/ul (0.83-4.51); Lymphocyte % 22.1 % (19-41); Mean Corp Hgb Conc 31.6 g/dL (32-36); Mean Corpuscular Hgb 27.2 pg (27.0-32.0); Mean Corpuscular Volume 85.9 fL (80-94); Mean Platelet Vol. 11.5 fl (6.2-12.0); Monocyte# 0.46 X10^3/uL; Monocyte% 7.1 % (0-10); NRBC Flagged by Analyzer 0 % (0-5); Neutrophil # 4.38 X10^3/uL (2.7-7.7); Neutrophil % 67.5 % (47-70); POSITIVE COUNT YES; Platelet Count 83 K/mm3 (150-450); RBC Distribution Width CV 14.1 % (11.6-14.6); RBC Distribution Width SD 44.3 fl (35.1-43.9); White Blood Count 6.5 K/mm3 (4.4-11.0)
[2024-09-26 09:41] LABS: Prothrombin Time (Protime)PT. 13.6 SECONDS (11.7-14.9)
[2024-09-26 10:59] LABS: ALB/GLOB Ratio 0.8 RATIO (0.9-2.4); AST(SGOT) 44 U/L (15-37); Alanine Aminotransfer ALT/SGPT 43 U/L (16-61); Albumin, Serum 3.2 g/dL (3.2-5.0); Alkaline Phosphatase 98 U/L (45-117); Anion Gap 5 (5-15); BUN 25 mg/dL (7-18); BUN/Creat Ratio 22.5 RATIO (10-20); CRP 3.16 mg/L (0.0-3.0); Calcium,Total 9.5 mg/dL (8.5-10.1); Chloride 106 mmol/L (98-107); Cholesterol 134 mg/dL (200); Creatinine, Serum 1.11 mg/dL (0.70-1.30); EST Glomerular Filtration Rate 72 mL/min (>60); Est Glom Filt Rate - Afr Amer 88 mL/min (>60); Globulin 4.1 g/dL (2.2-4.2); Glucose 207 mg/dL (74-106); High Density Lipoprotein 36 mg/dL; Potassium 4.9 mmol/L (3.5-5.1); Protein, Total 7.3 g/dL (6.4-8.2); Sodium Level 138 mmol/L (136-145); Triglycerides 270 mg/dL; Very Low Density Lipoprotein 54 mg/dL (5-40)
== END | disposition home or self-care (01) ==
PROVIDERS: Internal Medicine; PCP Family Medicine Geriatric Medicine; Referring Provider Family Medicine Geriatric Medicine; Visit Provider Family Medicine Geriatric Medicine
DX: K80.20 Calculus of gallbladder without cholecystitis without obstruction (principal); K76.0 Fatty (change of) liver, not elsewhere classified; K22.70 Barrett's esophagus without dysplasia; E78.1 Pure hyperglyceridemia
CPT/HCPCS: 36415; 78227; 80053; 80061; 85025; 85610; 86140; A9537; J2805

== ENCOUNTER → 2024-10-24 | Outpatient (CLI) | payer OTHER, SELFPAY ==
[2024-10-24 16:38] LABS: Absolute Lymphocyte Count 1.92 X10^3/uL (0.83-4.51); Absolute Neutrophil Count 4.6 X10^3/uL (2.0-7.7); Basophil# 0.03 X10^3/uL; Basophil% 0.4 % (0-1); Eosinophil# 0.15 X10^3/uL; Hematocrit 37.9 % (40-54); Hemoglobin 11.9 g/dL (13.0-16.5); Lymphocyte # 1.92 X10^3/ul (0.83-4.51); Lymphocyte % 25.9 % (19-41); Mean Corp Hgb Conc 31.4 g/dL (32-36); Mean Corpuscular Hgb 26.7 pg (27.0-32.0); Mean Corpuscular Volume 85.2 fL (80-94); Mean Platelet Vol. 11.5 fl (6.2-12.0); Monocyte# 0.63 X10^3/uL; Monocyte% 8.5 % (0-10); NRBC Flagged by Analyzer 0 % (0-5); Neutrophil # 4.63 X10^3/uL (2.7-7.7); Neutrophil % 62.7 % (47-70); POSITIVE COUNT YES; Platelet Count 86 K/mm3 (150-450); RBC Distribution Width CV 14.4 % (11.6-14.6); RBC Distribution Width SD 43.8 fl (35.1-43.9); Red Blood Count 4.45 M/mm3 (4.6-6.2); White Blood Count 7.4 K/mm3 (4.4-11.0)
[2024-10-24 17:05] LABS: ALB/GLOB Ratio 0.8 RATIO (0.9-2.4); AST(SGOT) 42 U/L (15-37); Alanine Aminotransfer ALT/SGPT 34 U/L (16-61); Albumin, Serum 3.3 g/dL (3.2-5.0); Alkaline Phosphatase 102 U/L (45-117); Anion Gap 5 (5-15); BUN 34 mg/dL (7-18); BUN/Creat Ratio 17.7 RATIO (10-20); Calcium,Total 9.7 mg/dL (8.5-10.1); Chloride 106 mmol/L (98-107); Cholesterol 114 mg/dL (200); Creatinine, Serum 1.92 mg/dL (0.70-1.30); EST Glomerular Filtration Rate 38 mL/min (>60); Est Glom Filt Rate - Afr Amer 47 mL/min (>60); Globulin 3.9 g/dL (2.2-4.2); Glucose 81 mg/dL (74-106); High Density Lipoprotein 35 mg/dL; Potassium 4.5 mmol/L (3.5-5.1); Protein, Total 7.2 g/dL (6.4-8.2); Sodium Level 138 mmol/L (136-145); Triglycerides 298 mg/dL; Very Low Density Lipoprotein 60 mg/dL (5-40)
== END | disposition home or self-care (01) ==
LOC: POLAB3 16:08
PROVIDERS: PCP Family Medicine Geriatric Medicine; Visit Provider Family Medicine Geriatric Medicine
DX: E11.65 Type 2 diabetes mellitus with hyperglycemia (principal); E78.5 Hyperlipidemia, unspecified; I10 Essential (primary) hypertension
CPT/HCPCS: 36415; 80053; 80061; 83036; 84443; 85025

== ENCOUNTER → 2024-12-04 | Outpatient (CLI) | payer BC, OTHER, SELFPAY ==
[2024-12-04 19:38] LABS: Anion Gap 5 (5-15); BUN 24 mg/dL (7-18); BUN/Creat Ratio 20.7 RATIO (10-20); Calcium,Total 10.1 mg/dL (8.5-10.1); Chloride 110 mmol/L (98-107); Creatinine, Serum 1.16 mg/dL (0.70-1.30); EST Glomerular Filtration Rate 69 mL/min (>60); Est Glom Filt Rate - Afr Amer 83 mL/min (>60); Glucose 229 mg/dL (74-106); Potassium 4.5 mmol/L (3.5-5.1); Sodium Level 140 mmol/L (136-145)
== END | disposition home or self-care (01) ==
PROVIDERS: PCP Family Medicine Geriatric Medicine; Visit Provider Family Medicine Geriatric Medicine
DX: I10 Essential (primary) hypertension (principal); R68.83 Chills (without fever)
CPT/HCPCS: 36415; 80048; 87631

== ENCOUNTER 2024-12-14 08:42 | Emergency (ER) | payer BC, SELFPAY ==
[2024-12-14 08:45] VITALS: BP 84/52; PULSE 78; RESP 18; TEMP 36.4; O2SAT 96; BMI 44.9
--- NOTE | 2024-12-14 09:35 | EKG12_ITS ---
Test Reason : Blood Pressure : */* mmHG Vent. Rate : 74 BPM Atrial Rate : 74 BPM P-R Int : 160 ms QRS Dur : 96 ms QT Int : 370 ms P-R-T Axes : 60 11 -87 degrees QTcB Int : 410 ms Normal sinus rhythm T wave abnormality, consider inferior ischemia Abnormal ECG Confirmed by MAL GARCIA, STEWART ([id number]), assignment desk editor MING DOOLEY ([id number]) on 12/17/2024 6:36:28 AM Referred By: YOAV Confirmed By: STEWART RESENDEZ MD
--- NOTE | 2024-12-14 09:36 | EX.ED.DYSGE1 ---
HPI History of Present Illness Chief Complaint: Dizziness Informant: patient and EMS Narrative Narrative: 58-year-old male arriving by EMS chief complaint of syncope. Patient states that about a week ago he developed a cough and was placed on doxycycline and codeine-based cough medication. He states that he still has a few days left to go on those medications. He states that he still has a minor cough. He notes that he has been constipated. Today he felt well enough that he would try to go to work. While at work he began to feel hot and sweaty and went to the bathroom believing that he needed to have a bowel movement. He states that after he finished she splash some water on his face feeling rather lightheaded and ended up having a syncopal episode. He did not hurt himself during the syncopal episode. He was noted to be hypotensive and pale for EMS. He notes he is feeling better now. He has a history of sleep apnea but has not been using his machine at night. He currently denies any chest pain or palpitations. He denies any significant abdominal pain or vomiting. He has a history of pulmonary embolism and there is a report that he has a inferior vena cava filter. He states he is not on a blood thinner. [facility] Medical History Wears glasses Insulin dependent diabetes mellitus Back pain Dietary restriction History of GI bleed Former smoker CPAP (continuous positive airway pressure) dependence Sleep apnea History of edema History of echocardiogram History of stress test HLD (hyperlipidemia) Nausea and vomiting Hypogonadism in male Diarrhea Allergic rhinitis Blood in stool Presence of inferior vena cava filter Testicular cancer Gastric ulcer HTN (hypertension) Pulmonary embolism Diabetes Lactic acidosis Syncope Home Medications ?Medication ?Instructions ?Recorded ?Last Taken ?Type metformin 1,000 mg tablet 1 tab PO BIDCM DM 03/24/18 12/24/20 History albuterol sulfate 90 mcg/actuation 90 mcg inhalation Q4H PRN PRN 04/09/18 Unknown History aerosol inhaler wheezing/SOB testosterone 2 pump topical DAILY testicular ca 04/09/18 04/09/18 History insulin aspar prot-insulin aspart 30 unit subcut BID 02/22/23 Unknown History 100 unit/mL (70-30) subcutaneous pen (Novolog Mix 70-30FlexPen U-100) insulin glargine U-300 conc 300 240 unit subcut DAILY 02/22/23 Unknown History unit/mL (3 mL) subcutaneous pen (Toujeo Max U-300 SoloStar) losartan 100 mg tablet 100 mg PO DAILY 02/22/23 07/04/23 History rosuvastatin 40 mg tablet 40 mg PO DAILY 02/22/23 Unknown History pantoprazole 40 mg tablet,delayed 40 mg PO DAILY 1 month #30 tabs 10/26/23 Unknown Rx release furosemide 40 mg tablet 40 mg PO DAILY 10/27/23 Unknown History ipratropium bromide 42 mcg (0.06 2 spray intranasal TID 10/27/23 Unknown History %) nasal spray cholecalciferol (vitamin D3) 1,250 1,250 mcg PO QWEEK 1 month #4 caps 07/17/24 Unknown Rx mcg (50,000 unit) capsule tirzepatide 2.5 mg/0.5 mL 2.5 mg subcut QWEEK 10/18/24 Unknown History subcutaneous pen injector (Edwin) fenofibrate nanocrystallized 48 mg 48 mg PO QHS 1 month #30 tabs 10/19/24 Unknown Rx tablet icosapent ethyl 1 gram capsule 2 g (2 x 1 gram) PO BID 1 month 10/19/24 Unknown Rx #120 caps magnesium citrate 300 ml PO X1 #1 BOTTLE 12/14/24 Unknown Rx Allergy/AdvReac Type Severity Reaction Status Date / Time No Known Allergies Allergy Verified 12/14/24 08:50 Family History Mother Diabetes Sister Diabetes Brother Diabetes Father Cancer lung Surgical History Hx of appendectomy S/P insertion of IVC (inferior vena caval) filter History of back surgery History of orchiectomy, bilateral Social History Smoking Status: Former smoker ROS ROS ED Constitutional Constitutional ED: Reports sweats; Denies chills, fever(s) or weight loss Eyes Eyes: Denies change in vision or diplopia ENT ENT ED: Denies ear pain, rhinorrhea or sore throat Cardiovascular Cardiovascular: Reports other Details: Syncope ; Denies chest pain, orthopnea, palpitations or racing heartbeat Respiratory/Chest Respiratory/Chest: Reports cough; Denies dyspnea or orthopnea Gastrointestinal Gastrointestinal: Reports constipation; Denies abdominal pain, diarrhea, nausea or vomiting Genitourinary Genitourinary ED: Denies dysuria, hematuria or urinary frequency Musculoskeletal Musculoskeletal: Denies arthralgias or myalgias Integumentary Denies abscess or rash Neurologic Neurologic: Denies headache(s) or weakness Psychiatric Psychiatric: Denies anxiety, depression, suicidal ideation or suicidal thoughts Endocrine Endocrinology: Denies polydipsia, polyphagia or polyuria Allergic/Immunologic Allergic/Immunologic ED: Denies mouth swelling, tongue swelling or urticaria EXAM Physical Exam Narrative Exam Narrative: Blood pressure is 97/60 during my examination. Const Vital Signs: 12/14/24 08:45 12/14/24 09:45 Temperature 97.6 F L Temperature Source Temporal Pulse Rate 78 Respiratory Rate 18 Blood Pressure 84/52 L 90/50 L Blood Pressure Mean 62 63 Pulse Ox 96 Oxygen Delivery Method Room Air Positive well nourished, well developed and obese General Appearance ED: well developed Nutritional Appearance: obese HEENT Reports normocephalic, head/scalp atraumatic and moist mucous membranes Eyes PERRL and EOMs intact bilaterally Neck no lymphadenopathy, supple and no JVD Resp normal respiratory effort and clear to auscultation bilaterally Cardio regular rate, regular rhythm and no murmurs GI normal to inspection, nondistended, normoactive bowel sounds and non-tender Palpation: soft Back/Spine no CVA tenderness and normal ROM Extremity normal to inspection General Extremety ED: Negative for edema General Extremity: Negative for edema Neuro oriented x3 and CN's II-XII intact bilaterally Sensorium / Orientation: alert Motor Exam: strength 5/5 throughout Psych mental status grossly normal Mood & Affect: Negative for depressed or tearful Skin no rashes or lesions noted and no wounds MDM MDM MDM Narrative Medical decision making narrative: Differential diagnosis includes syncope (vasovagal cardiogenic hypovolemic/orthostatic) electrolyte abnormalities pneumonia anemia renal dysfunction hypoglycemia My independent interpretation of the chest x-ray is no acute process. He has been in normal sinus rhythm. Hemoglobin is 12.9 white count of 11 platelet count of 112. Creatinine 1.50 normal LFTs. Patient received a liter of IV fluids his blood pressure responded appropriately. He is overall feeling better. He is no longer pale. We talked about his constipation. He has recently been on codeine and has not been hydrating as well due to his illness. I can write for some magnesium citrate. Certainly the codeine can be constipating as well. Patient follow-up with primary care as needed orally hydrate return if worsening or concerns History & Record Review Discussion w/independent historian: EMS personnel and Patient Additional record(s) reviewed:: Prior labs Lab Data Attestation: I reviewed the patient's lab results. Labs: Laboratory Results - last 24 hr 12/14/24 09:00 WBC 11.0 RBC 4.74 Hgb 12.9 L Hct 40.9 MCV 86.3 MCH 27.2 MCHC 31.5 L RDW Std Deviation 44.6 H RDW Coeff of Fior 14.6 Plt Count 112 L MPV 12.2 H Immature Gran % (Auto) 1.100 H Neut % (Auto) 59.9 Lymph % (Auto) 26.8 Citrus % (Auto) 10.0 Eos % (Auto) 1.7 Baso % (Auto) 0.5 Absolute Neuts (auto) 6.6 Absolute Lymphs (auto) 2.96 Nucleated RBC % 0 Sodium 140 Potassium 4.2 Chloride 106 Carbon Dioxide 25.0 Anion Gap 9 BUN 28 H Creatinine 1.50 H Estim Creat Clear Calc 72.79 Est GFR (MDRD) Af Amer 62 Est GFR (MDRD) Non-Af 51 L BUN/Creatinine Ratio 18.7 Glucose 111 H Calcium 9.7 Total Bilirubin 0.90 Direct Bilirubin 0.22 AST 37 ALT 44 Alkaline Phosphatase 100 Total Protein 7.0 Albumin 3.1 L Globulin 3.9 Radiography Diagnostic Testing: Clinical Impression(s) from Imaging Studies Chest X-Ray 12/14/24 09:54 IMPRESSION: No acute cardiopulmonary process. Reading Location: [facility] EKG Initial EKG: Attestation: I personally reviewed and interpreted this EKG as follows: Comments: Normal sinus rhythm ventricular rate of 74 bpm. Discharge Plan Triage Chief Complaint: Dizziness ED Provider: Dorian Brown Dx/Rx/DC Orders Clinical Impression: Vasovagal syncope, Acute constipation Instructions: ED Fainting, Vagal Reaction Prescriptions: New magnesium citrate Solution 300 ml PO X1 Qty: 1 0RF No Action losartan 100 mg tablet 100 mg PO DAILY insulin asp prt-insulin aspart [Novolog Mix 70-30FlexPen U-100] 100 unit/mL (70-30) insulin pen 30 unit subcut BID Toujeo Max U-300 SoloStar 300 unit/mL (3 mL) insulin pen 240 unit subcut DAILY rosuvastatin 40 mg tablet 40 mg PO DAILY pantoprazole 40 mg tablet,delayed release (DR/EC) 40 mg PO DAILY 30 Days Qty: 30 3RF furosemide 40 mg tablet 40 mg PO DAILY ipratropium bromide 42 mcg (0.06 %) spray,non-aerosol 2 spray intranasal TID Rx Instructions: administer into each nostril cholecalciferol (vitamin D3) 1,250 mcg (50,000 unit) capsule 1,250 mcg PO QWEEK 30 Days Qty: 4 3RF fenofibrate nanocrystallized 48 mg tablet 48 mg PO QHS 30 Days Qty: 30 4RF icosapent ethyl 1 gram capsule 2 g PO BID 30 Days Qty: 120 2RF Mounjaro 2.5 mg/0.5 mL pen injector 2.5 mg subcut QWEEK Rx Instructions: for 4 weeks metformin 1,000 MG tablet 1 tab PO BIDCM Patient Comments: take 1 tablet by mouth twice a day albuterol sulfate 18 GM HFA aerosol inhaler 90 mcg INHALATION Q4H PRN PRN (Reason: wheezing/SOB) Patient Comments: inhale 2 puffs by mouth SIX TIMES DAILY IF NEEDED FOR SHORTNESS OF BREATH testosterone 75 GM gel in metered-dose pump 2 pump topical DAILY Patient Comments: Primary Care Provider: Ravindra Durham Chi Referrals: Ravindra Durham Chi, MD [Primary Care Provider] - As Needed Activity Restrictions/Additional Instructions: Drink plenty of fluids to stay hydrated. Print Language: Paraguayan Disposition Disposition: Home, Self Care
[2024-12-14 09:45] VITALS: BP 90/50
[2024-12-14] MEDS: 0.9% Normal Saline (1000mL) 1,000 ML 1000 ML IV (09:51)
--- NOTE | 2024-12-14 09:54 | RAD_ITS ---
EXAM: XR Chest, 1 View CLINICAL INDICATION: TECHNIQUE: Frontal view of the chest. COMPARISON: No relevant prior studies available. FINDINGS: LUNGS AND PLEURAL SPACES: Unremarkable. No consolidation. No pneumothorax. HEART: Unremarkable. No cardiomegaly. MEDIASTINUM: Unremarkable. Normal mediastinal contour. BONES/JOINTS: Unremarkable. No acute fracture. RAD/Chest 1 View (Portable) IMPRESSION: No acute cardiopulmonary process. Reading [facility]
[2024-12-14 10:00] VITALS: BP 112/57; PULSE 73; RESP 18; O2SAT 95
[2024-12-14 10:06] LABS: Absolute Lymphocyte Count 2.96 X10^3/uL (0.83-4.51); Absolute Neutrophil Count 6.6 X10^3/uL (2.0-7.7); Basophil# 0.06 X10^3/uL; Basophil% 0.5 % (0-1); Eosinophil# 0.19 X10^3/uL; Eosinophils% 1.7 % (0-5); Hematocrit 40.9 % (40-54); Hemoglobin 12.9 g/dL (13.0-16.5); Lymphocyte # 2.96 X10^3/ul (0.83-4.51); Lymphocyte % 26.8 % (19-41); Mean Corp Hgb Conc 31.5 g/dL (32-36); Mean Corpuscular Hgb 27.2 pg (27.0-32.0); Mean Corpuscular Volume 86.3 fL (80-94); Mean Platelet Vol. 12.2 fl (6.2-12.0); NRBC Flagged by Analyzer 0 % (0-5); Neutrophil % 59.9 % (47-70); Platelet Count 112 K/mm3 (150-450); RBC Distribution Width CV 14.6 % (11.6-14.6); RBC Distribution Width SD 44.6 fl (35.1-43.9); Red Blood Count 4.74 M/mm3 (4.6-6.2)
[2024-12-14 10:10] LABS: AST(SGOT) 37 U/L (15-37); Alanine Aminotransfer ALT/SGPT 44 U/L (16-61); Albumin, Serum 3.1 g/dL (3.2-5.0); Alkaline Phosphatase 100 U/L (45-117); Anion Gap 9 (5-15); BUN 28 mg/dL (7-18); BUN/Creat Ratio 18.7 RATIO (10-20); Bilirubin, Direct 0.22 mg/dL (0.00-0.30); Calcium,Total 9.7 mg/dL (8.5-10.1); Chloride 106 mmol/L (98-107); EST Glomerular Filtration Rate 51 mL/min (>60); Est Glom Filt Rate - Afr Amer 62 mL/min (>60); Estimated Creatinine Clearance 72.79 ml/min; Globulin 3.9 g/dL (2.2-4.2); Glucose 111 mg/dL (74-106); Potassium 4.2 mmol/L (3.5-5.1); Sodium Level 140 mmol/L (136-145)
[2024-12-14 11:00] VITALS: BP 145/64; PULSE 72; RESP 18; O2SAT 96
[2024-12-14 11:45] VITALS: BP 127/66; PULSE 73; RESP 18; TEMP 36.6; O2SAT 93
== END 2024-12-14 11:47 | disposition home or self-care (01) ==
PROVIDERS: Emergency Provider Emergency Medicine; PCP Family Medicine Geriatric Medicine; Visit Provider Emergency Medicine
DX: R55 Syncope and collapse (principal); E11.9 Type 2 diabetes mellitus without complications; Z79.4 Long term (current) use of insulin; K59.00 Constipation, unspecified; I10 Essential (primary) hypertension; I95.9 Hypotension, unspecified; E66.9 Obesity, unspecified; E78.5 Hyperlipidemia, unspecified; G47.30 Sleep apnea, unspecified; Z87.19 Personal history of other diseases of the digestive system; Z79.84 Long term (current) use of oral hypoglycemic drugs; Z86.711 Personal history of pulmonary embolism; Z95.828 Presence of other vascular implants and grafts; Z79.899 Other long term (current) drug therapy; Z87.891 Personal history of nicotine dependence
CPT/HCPCS: 71045; 80048; 80076; 85025; 93005; 96360; 96361; 99285; A4216

== ENCOUNTER 2024-12-18 12:10 | Outpatient (CLI) | payer BC, SELFPAY ==
[2024-12-18] MEDS: 0.9% Normal Saline (1000mL) 1,000 ML 999 ML IV ×2 (12:42→13:49)
[2024-12-18 12:44] VITALS: BP 107/86; PULSE 97; RESP 18; TEMP 36.1; O2SAT 96; BMI 45.1
[2024-12-18] MEDS: 0.9% NaCl Peripheral Flush Adult/Peds IV (13:47)
[2024-12-18 15:07] VITALS: BP 135/62; PULSE 76
== END 2024-12-18 23:59 | disposition home or self-care (01) ==
LOC: MEDOUTP 12:11
PROVIDERS: PCP Family Medicine Geriatric Medicine; Referring Provider Family Medicine Geriatric Medicine; Visit Provider Family Medicine Geriatric Medicine
DX: E86.0 Dehydration (principal)
CPT/HCPCS: 96360; 96361; A4216

== ENCOUNTER → 2025-01-23 | Outpatient (CLI) | payer BC, SELFPAY ==
[2025-01-23 16:19] LABS: Absolute Neutrophil Count 3.9 X10^3/uL (2.0-7.7); Basophil# 0.03 X10^3/uL; Basophil% 0.5 % (0-1); Eosinophil# 0.12 X10^3/uL; Hematocrit 40.1 % (40-54); Hemoglobin 12.9 g/dL (13.0-16.5); Lymphocyte % 24.7 % (19-41); Mean Corp Hgb Conc 32.2 g/dL (32-36); Mean Corpuscular Hgb 27.3 pg (27.0-32.0); Monocyte# 0.45 X10^3/uL; Monocyte% 7.4 % (0-10); NRBC Flagged by Analyzer 0 % (0-5); Neutrophil # 3.93 X10^3/uL (2.7-7.7); Neutrophil % 64.7 % (47-70); POSITIVE COUNT YES; Platelet Count 86 K/mm3 (150-450); RBC Distribution Width CV 14.7 % (11.6-14.6); Red Blood Count 4.72 M/mm3 (4.6-6.2); White Blood Count 6.1 K/mm3 (4.4-11.0)
[2025-01-23 19:28] LABS: Bilirubin, Direct 0.25 mg/dL (0.00-0.30); CRP < 3.00 mg/L (0.0-3.0); Cholesterol 120 mg/dL (<=200); High Density Lipoprotein 37 mg/dL; Low Density Lipoprotein Calc. 40 mg/dL; Triglycerides 217 mg/dL; Very Low Density Lipoprotein 43 mg/dL (5-40); Vitamin B12 507 pg/mL (180-914); Vitamin D,25 Hydroxy 16.1 ng/mL (30-100); cholesterol:hdl ratio screen 3.29
[2025-01-23 19:33] LABS: Hepatitis B Surface Antibody Nonreactive
[2025-01-23 19:41] LABS: ALB/GLOB Ratio 1.2 RATIO (0.9-2.4); AST(SGOT) 53 U/L (<=37); Alanine Aminotransfer ALT/SGPT 30 U/L (<=46); Albumin, Serum 3.7 g/dL (3.5-5.0); Alkaline Phosphatase 135 U/L (40-129); Anion Gap 11 (5-15); BUN 20 mg/dL (4-19); BUN/Creat Ratio 19.8 RATIO (10-20); Calcium,Total 9.8 mg/dL (7.6-11.0); Carbon Dioxide 24.4 mmol/L (21.0-32.0); Chloride 103 mmol/L (98-108); EST Glomerular Filtration Rate 88 (>60); Globulin 3.2 g/dL (2.2-4.2); Glucose 257 mg/dL (70-99); Potassium 4.8 mmol/L (3.3-5.1); Protein, Total 6.8 g/dL (5.9-8.4); Sodium Level 138 mmol/L (133-145); Total Bilirubin 0.67 mg/dL (0.00-1.30)
[2025-01-23 20:09] LABS: FOLATES,SERUM (FOLIC ACID) 8.08 ng/mL (4.60-34.80)
[2025-01-25 08:08] LABS: AFP, Tumor Marker 3.2 ng/mL (0.0-8.4)
== END | disposition home or self-care (01) ==
LOC: POLAB3 15:44
PROVIDERS: Internal Medicine; PCP Family Medicine Geriatric Medicine; Visit Provider Family Medicine Geriatric Medicine
DX: E11.65 Type 2 diabetes mellitus with hyperglycemia (principal); I10 Essential (primary) hypertension; E78.1 Pure hyperglyceridemia; K22.70 Barrett's esophagus without dysplasia; K76.0 Fatty (change of) liver, not elsewhere classified; D69.6 Thrombocytopenia, unspecified; K80.20 Calculus of gallbladder without cholecystitis without obstruction
CPT/HCPCS: 36415; 80053; 80061; 82105; 82248; 82306; 82607; 82746; 83036; 84443; 85025; 85610; 86140; 86706

== ENCOUNTER → 2025-01-26 | Outpatient (CLI) | payer BC, SELFPAY ==
[2025-01-26 09:28] LABS: CORTISOL AM 1.29 ug/dL (6.02-18.40)
== END | disposition home or self-care (01) ==
LOC: LAB 07:42
PROVIDERS: PCP Family Medicine Geriatric Medicine; Referring Provider Family Medicine Geriatric Medicine; Visit Provider Family Medicine Geriatric Medicine
DX: E24.9 Cushing's syndrome, unspecified (principal)
CPT/HCPCS: 36415; 82533

== ENCOUNTER → 2025-04-23 | Outpatient (CLI) | payer BC, SELFPAY ==
[2025-04-23 17:23] LABS: Absolute Lymphocyte Count 1.96 X10^3/uL (0.83-4.51); Absolute Neutrophil Count 4.9 X10^3/uL (2.0-7.7); Basophil# 0.03 X10^3/uL; Basophil% 0.4 % (0-1); Eosinophil# 0.13 X10^3/uL; Eosinophils% 1.7 % (0-5); Hematocrit 36.8 % (40-54); Hemoglobin 11.5 g/dL (13.0-16.5); Lymphocyte # 1.96 X10^3/ul (0.83-4.51); Lymphocyte % 25.3 % (19-41); Mean Corp Hgb Conc 31.3 g/dL (32-36); Mean Corpuscular Hgb 26.2 pg (27.0-32.0); Mean Corpuscular Volume 83.8 fL (80-94); Mean Platelet Vol. 10.5 fl (6.2-12.0); Monocyte# 0.65 X10^3/uL; Monocyte% 8.4 % (0-10); NRBC Flagged by Analyzer 0 % (0-5); Neutrophil # 4.93 X10^3/uL (2.7-7.7); Neutrophil % 63.7 % (47-70); POSITIVE COUNT YES; Platelet Count 97 K/mm3 (150-450); RBC Distribution Width CV 14.6 % (11.6-14.6); RBC Distribution Width SD 44.8 fl (35.1-43.9); Red Blood Count 4.39 M/mm3 (4.6-6.2); White Blood Count 7.7 K/mm3 (4.4-11.0)
[2025-04-23 18:54] LABS: ALB/GLOB Ratio 1.3 RATIO (0.9-2.4); AST(SGOT) 36 U/L (<=37); Alanine Aminotransfer ALT/SGPT 27 U/L (<=46); Alkaline Phosphatase 95 U/L (40-129); Anion Gap 13 (5-15); BUN 30 mg/dL (4-19); BUN/Creat Ratio 22.5 RATIO (10-20); Calcium,Total 9.9 mg/dL (7.6-11.0); Carbon Dioxide 26.2 mmol/L (21.0-32.0); Chloride 101 mmol/L (98-108); Creatinine, Serum 1.31 mg/dL (0.70-1.20); EST Glomerular Filtration Rate 63 (>60); Globulin 3.1 g/dL (2.2-4.2); Glucose 102 mg/dL (70-99); Potassium 3.8 mmol/L (3.3-5.1); Protein, Total 7.1 g/dL (5.9-8.4); Sodium Level 140 mmol/L (133-145); Total Bilirubin 0.93 mg/dL (0.00-1.30)
== END | disposition home or self-care (01) ==
PROVIDERS: PCP Family Medicine Geriatric Medicine; Referring Provider Family Medicine Geriatric Medicine; Visit Provider Family Medicine Geriatric Medicine
DX: E11.65 Type 2 diabetes mellitus with hyperglycemia (principal); I10 Essential (primary) hypertension; S81.802A Unspecified open wound, left lower leg, initial encounter
CPT/HCPCS: 80053; 84443; 85025

== ENCOUNTER → 2025-04-26 | Outpatient (CLI) | payer BC, SELFPAY ==
[2025-04-26 15:35] LABS: M R Staph aureus DNA By PCR Negative (Negative); Probe Check PASS; Specimen Processing Control PASS; Staph aureus DNA By PCR POSITIVE (Negative)
== END | disposition home or self-care (01) ==
LOC: LABSPEC 13:04
PROVIDERS: PCP Family Medicine Geriatric Medicine; Referring Provider Family Medicine Geriatric Medicine; Visit Provider Family Medicine Geriatric Medicine
DX: L03.116 Cellulitis of left lower limb (principal); S81.802A Unspecified open wound, left lower leg, initial encounter
CPT/HCPCS: 87070; 87205; 87640

== ENCOUNTER 2025-05-03 11:15 | Outpatient (RCR) | payer BC, SELFPAY ==
[2025-04-30 14:07] VITALS: BP 125/62; PULSE 83; RESP 18; TEMP 36.3; BMI 45.6
--- NOTE | 2025-05-01 07:44 | WC ---
PHOTO 04/30/25 TORRIE
--- NOTE | 2025-05-01 07:45 | WC ---
PHOTO 04/30/25 RLE
--- NOTE | 2025-05-02 17:29 | PCM.WC.HP ---
History of Present Illness Date of Service: 04/30/25 Chief Complaint: Chronic venous insufficiency with bilateral lower extremity venous stasis ulcerations History of Wound: This is a 59-year-old male who presented with severe venous stasis dermatitis in his lower extremities, as well as bilateral lower extremity venous stasis ulcerations. The patient has been treated by his primary care physician for suspected lower extremity cellulitis, with recent prescriptions for oral antibiotics. He is currently taking Keflex and doxycycline orally. The patient experiences swelling and edema in both lower extremities. His current ulcerations began as blisters several months ago, which subsequently developed into open ulcerations. A wound culture of the left leg was performed on April 26, 2025, which revealed very rare coag negative staph. The patient is obese, with a BMI of 45.6. 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 He suffers from chronic swelling and edema in his lower extremities. He sleeps in a chair at night. He has a history of pulmonary embolism, and has previously undergone placement of an inferior vena cava filter. According the patient, the filter was subsequently removed. Patient suffers from multiple other pre-existing medical conditions, which are listed herein. He has a history of testicular cancer, for which he has undergone bilateral orchiectomy. [facility] Medical History Chronic kidney disease, stage 3b Diabetes mellitus type 2, insulin dependent Hepatic fibrosis Obstructive sleep apnea Hypogonadism Postphlebitic syndrome with both ulcer and inflammation Venous stasis ulcer Left leg swelling Right leg swelling Venous stasis dermatitis of both lower extremities Venous stasis ulcer Chronic venous insufficiency History of pulmonary embolism Wears glasses Insulin dependent diabetes mellitus Back pain Dietary restriction History of GI bleed Former smoker CPAP (continuous positive airway pressure) dependence Sleep apnea History of edema History of echocardiogram History of stress test HLD (hyperlipidemia) Nausea and vomiting Hypogonadism in male Diarrhea Allergic rhinitis Blood in stool Presence of inferior vena cava filter Testicular cancer Gastric ulcer HTN (hypertension) Pulmonary embolism Diabetes Lactic acidosis Syncope Home Medications ?Medication ?Instructions ?Recorded ?Last Taken ?Type metformin 1,000 mg tablet 1 tab PO BIDCM DM 03/24/18 12/24/20 History albuterol sulfate 90 mcg/actuation 90 mcg inhalation Q4H PRN PRN 04/09/18 Unknown History aerosol inhaler wheezing/SOB testosterone 2 pump topical DAILY testicular ca 04/09/18 04/09/18 History insulin aspar prot-insulin aspart 30 unit subcut BID 02/22/23 Unknown History 100 unit/mL (70-30) subcutaneous pen (Novolog Mix 70-30FlexPen U-100) insulin glargine U-300 conc 300 240 unit subcut DAILY 02/22/23 Unknown History unit/mL (3 mL) subcutaneous pen (Toujeo Max U-300 SoloStar) losartan 100 mg tablet 100 mg PO DAILY 02/22/23 07/04/23 History rosuvastatin 40 mg tablet 40 mg PO DAILY 02/22/23 Unknown History pantoprazole 40 mg tablet,delayed 40 mg PO DAILY 1 month #30 tabs 10/26/23 Unknown Rx release furosemide 40 mg tablet 40 mg PO DAILY 10/27/23 Unknown History ipratropium bromide 42 mcg (0.06 2 spray intranasal TID 10/27/23 Unknown History %) nasal spray cholecalciferol (vitamin D3) 1,250 1,250 mcg PO QWEEK 1 month #4 caps 07/17/24 Unknown Rx mcg (50,000 unit) capsule tirzepatide 2.5 mg/0.5 mL 2.5 mg subcut QWEEK 10/18/24 Unknown History subcutaneous pen injector (Edwin) fenofibrate nanocrystallized 48 mg 48 mg PO QHS 1 month #30 tabs 10/19/24 Unknown Rx tablet icosapent ethyl 1 gram capsule 2 g (2 x 1 gram) PO BID 1 month 10/19/24 Unknown Rx #120 caps magnesium citrate 300 ml PO X1 #1 BOTTLE 12/14/24 Unknown Rx Allergy/AdvReac Type Severity Reaction Status Date / Time No Known Allergies Allergy Verified 04/30/25 14:06 Family History Mother Diabetes Sister Diabetes Brother Diabetes Father Cancer lung Surgical History Hx of appendectomy S/P insertion of IVC (inferior vena caval) filter History of back surgery History of orchiectomy, bilateral Social History Smoking Status: Former smoker Vital Signs Vital Signs Vital Signs: Weight Weight: 300 lb Body Mass Index (BMI) 45.6 Physical Exam Const alert, oriented x3, no apparent distress and well nourished Constitutional Narrative: The patient is morbidly obese. His BMI is 45.6 General Appearance: cooperative, comfortable and well developed Orientation / Consciousness: awake, oriented to person, oriented to place and oriented to time Exam Limitations: no limitations HEENT normocephalic and head/scalp atraumatic Head and Scalp: normal to inspection, normocephalic and atraumatic Face and Sinus: normal facial exam Nose: external nose normal External Ear: external ears normal Teeth and Gingiva: poor dentition Eyes EOMs intact bilaterally General Eye: normal appearance of both eyes Resp normal respiratory effort, normal air movement, no retractions and no use of accessory muscles Effort and Inspection: able to speak in complete sentences Extremity no calf tenderness General Extremity: Negative for clubbing or cyanosis Skin Wound Narrative: Mild swelling and edema are noted to the patient's lower extremities bilaterally. Severe venous stasis dermatitis is noted bilaterally in the gaiter areas, with diffuse erythema. An open ulceration is noted on the right pretibial surface, which demonstrates a moderate amount of bioburden and nonviable tissue. Inferior to this ulceration is a large, intact blister. Two ulcerations are noted on the anterolateral aspect of the distal left lower extremity, which demonstrate a large amount of necrotic and nonviable tissue. Dimensions of the ulcerations are noted elsewhere. The ulcerations are full-thickness in nature, extending through all layers of the dermis and into the subcutaneous tissues. Neuro oriented x3, CN's II-XII intact bilaterally, moves all extremities, no focal motor deficits and no sensory deficits noted Sensorium / Orientation: awake, alert, oriented to person, oriented to place and oriented to time Speech: speech normal Psych Appearance: grossly normal and appropriate Attitude: calm Activity / Motor Behavior: appropriate eye contact Speech: normal speech Mood & Affect: euthymic mood Thought Process: normal thought process Thought Content: normal thought content Attention / Concentration: attention grossly intact Debridement Note Debridement Note Tissue Removed: Bioburden nonviable tissue No debridement was completed: No debridement was completed today Post-Debridement Measurements and Additional Note: Post-Debridement Measurements/Treatment [id number] - Nurse 1 - General Ulcer Assessment Start: 04/30/25 14:07 Freq: Status: Active Protocol: JENY Activity Type Activity Date Activity User E-sign Co-sign Detail Recorded Client Recorded Date Recorded By Document 04/30/25 14:07 [id number] 04/30/25 14:32 04/30/25 14:07 - Today's Visit Information Type of service Initial Visit Arrival Mode Ambulatory Patient Identification Verified (Name & Yes ) Height and Weight Height 5 ft 8 in Weight 300 lb Weight in Pounds 300.0 lbs Weight Measurement Method Estimated by Patient Body Mass Index (BMI) 45.6 BMI Classification Obese Vital Signs Temperature (97.8 F-99.1 F) 97.4 F L Temperature Source Temporal Pulse Rate (60-100) 83 Pulse Location Monitor Respiratory Rate (12-18) 18 Respiratory rate source Observation Oxygen Delivery Method Room Air Blood Pressure (90/60-120/80) 125/62 H Blood Pressure Mean 83 Source Monitor Position Sitting Blood Pressure Location Right Arm History Since Last Visit- (Skip if this is Patient's initial visit) Left Footwear Diabetic Shoe Right Footwear Diabetic Shoe Pain Scale: 0-10 Numeric Is Patient Pain Free? Yes JAIR LE -Description Sharp,Burning -Alleviating Factors/Interventions Medication, Inactivity/ Resting Lower Extremity Assessment/ Foot Assessment/ Toe Nail Assessment Left -Posterior Tibial Doppler Multiphasic -Dorsalis Pedis Doppler Multiphasic -Extremity Color Red -Hair Growth on Legs No -Hair Growth on Toes No -Temperature of Extremity Cool -Capillary Refill Less than 3 Seconds -Thick No -Discolored No -Deformed No -Improper Length & Hygeine No Right -Posterior Tibial Doppler Multiphasic -Dorsalis Pedis Doppler Multiphasic -Extremity Color Red, Hyperpigmented -Hair Growth on Legs No -Hair Growth on Toes No -Temperature of Extremity Cool -Capillary Refill Less than 3 Seconds -Thick No -Discolored No -Deformed No -Improper Length & Hygeine No Communication Assessment Preferred language Wolof Fire Extinguisher Mechanic Required No Able to Read Yes Able to Write Yes Communication Tools None Right Hearing Abillity Normal Left Hearing Abillity Normal Visual Assistive Devices None Teaching Assessment Preferences Verbal Barriers to Learning None Readiness To Learn Excellent Willingness to Engage in Self Management High Activies Readiness to Engage in Self Management High Activities Anxiety Level Calm Cooperation Cooperative Perception Coherent Interest in Health Problem Asks Questions Education Importance Acknowledges Need Does Patient Smoke tobacco or other Yes substances Smoking Status Former smoker Is Patient Diabetic Yes Functional Assessment Recent Decline in Ability to Perform Denies Any Declines Culture/Catholic/Field Ring Assembler Cultural/Catholic Needs that may affect No Treatment Plan Would you allow our hospital activity therapy specialist to No meet you for the purpose of spiritual/ emotional support? Field Ring Assembler to contact place of denominational No WC - Nurse 1 - General Ulcer Measurement Start: 04/30/25 14:07 Freq: Status: Active Protocol: Activity Type Activity Date Activity User E-sign Co-sign Detail Recorded Client Recorded Date Recorded By Document 04/30/25 14:07 [id number] 04/30/25 14:32 04/30/25 14:07 Wound Center Nurse 1 #3 RLE CLUSTER -Current Size (cm) - Length 6 -Current Size (cm) - Width 2.5 -Current Size (cm) - Depth 0.1 -Total Square Cm 15.0 -Date of Last Picture (Recall this 04/30/25 field) -Exudate Amt Medium -Exudate Type Yellow/Green -Wound Margin Distinct, Outline Attached -Granulation Amt Large (67-100%) -Granulation Quality Red -Necrosis Amt Small (1-33%) -Necrotic Tissue Type Adherent Slough -Texture (Shawanda-wound Skin Appearance) Assessed -Moisture (Shawanda-wound Skin Appearance) Assessed -Color (Shawanda-wound Skin Appearance) Assessed, Erythema -Temperature (Shawanda-wound Skin No Abnormality Appearance) (Pt Warm) -Tenderness on Palpation (Shawanda-wound No Skin Appearance) -Ulcer Cleansing Soap and Water -Foul Odor after Cleansing No -Wound Comment(s) INTACT BLISTERS #2 LLE INF -Current Size (cm) - Length 2.5 -Current Size (cm) - Width 2 -Current Size (cm) - Depth 0.1 -Total Square Cm 5.0 -Date of Last Picture (Recall this 04/30/25 field) -Exudate Amt Medium -Exudate Type Yellow/Green -Granulation Amt Small (1-33%) -Granulation Quality Red -Necrosis Amt Large (67-100%) -Necrotic Tissue Type Adherent Slough -Texture (Shawanda-wound Skin Appearance) Assessed -Moisture (Shawanda-wound Skin Appearance) Assessed -Color (Shawanda-wound Skin Appearance) Assessed, Erythema -Temperature (Shawanda-wound Skin No Abnormality Appearance) (Pt Warm) -Tenderness on Palpation (Shawanda-wound No Skin Appearance) -Ulcer Cleansing Soap and Water -Foul Odor after Cleansing No #1 LLE SUP -Current Size (cm) - Length 3 -Current Size (cm) - Width 1.5 -Current Size (cm) - Depth 0.1 -Total Square Cm 4.5 -Date of Last Picture (Recall this 04/30/25 field) -Exudate Amt Medium -Exudate Type Yellow/Green -Wound Margin Distinct, Outline Attached -Granulation Amt Small (1-33%) -Granulation Quality Red -Necrosis Amt Large (67-100%) -Necrotic Tissue Type Adherent Slough -Texture (Shawanda-wound Skin Appearance) Assessed -Moisture (Shawanda-wound Skin Appearance) Assessed -Color (Shawanda-wound Skin Appearance) Assessed, Erythema -Temperature (Shawanda-wound Skin No Abnormality Appearance) (Pt Warm) -Tenderness on Palpation (Shawanda-wound No Skin Appearance) -Ulcer Cleansing Soap and Water -Foul Odor after Cleansing No Right Calf (cm) 45.5 Right Ankle (cm) 25.5 Left Calf (cm) 48.5 Left Ankle (cm) 26 WC - Nurse 2 - General Ulcer CM Notes Start: 04/30/25 14:07 Freq: Status: Active Protocol: Activity Type Activity Date Activity User E-sign Co-sign Detail Recorded Client Recorded Date Recorded By Document 04/30/25 15:03 DS [id number] 04/30/25 15:13 DS 04/30/25 15:03 Wound Center Nurse 2 #3 RLE CLUSTER -Time 15:03 -Correct Patient Yes -Correct Side, Site, Position Yes -Procedure Performed No -Post Debridement (cm) - Length 6.0 -Post Debridement (cm) - Width 2.5 -Post Debridement (cm) - Depth 0.1 -Total Square (Post) (cm) 15.00 -Area of Debridement (cm) - Length 6.0 -Area of Debridement (cm) - Width 2.5 -Total Square (Area) (cm) 15.00 -Tunneling No -Undermining/Tunneling No -Circular Undermining No -Wound/Ulcer Outcome Not Healed #2 LLE INF -Time 15:03 -Correct Patient Yes -Correct Side, Site, Position Yes -Procedure Performed No -Post Debridement (cm) - Length 2.5 -Post Debridement (cm) - Width 2.0 -Post Debridement (cm) - Depth 0.1 -Total Square (Post) (cm) 5.00 -Area of Debridement (cm) - Length 2.5 -Area of Debridement (cm) - Width 2.0 -Total Square (Area) (cm) 5.00 -Tunneling No -Undermining/Tunneling No -Circular Undermining No -Wound/Ulcer Outcome Not Healed #1 LLE SUP -Time 15:03 -Correct Patient Yes -Correct Side, Site, Position Yes -Procedure Performed No -Post Debridement (cm) - Length 3.0 -Post Debridement (cm) - Width 1.5 -Post Debridement (cm) - Depth 0.1 -Total Square (Post) (cm) 4.50 -Area of Debridement (cm) - Length 3.0 -Area of Debridement (cm) - Width 1.5 -Total Square (Area) (cm) 4.50 -Tunneling No -Undermining/Tunneling No -Circular Undermining No -Wound/Ulcer Outcome Not Healed Pain Scale: 0-10 Numeric Is Patient Pain Free? Yes - Nurse 3 - General Ulcer D/C NN Start: 04/30/25 14:07 Freq: Status: Active Protocol: Activity Type Activity Date Activity User E-sign Co-sign Detail Recorded Client Recorded Date Recorded By Document 04/30/25 14:07 [id number] 04/30/25 14:32 KW Document 04/30/25 15:35 [id number] 04/30/25 15:36 04/30/25 04/30/25 14:07 15:35 Pain Scale: 0-10 Numeric Is Patient Pain Free? Yes Yes JAIR LE -Description Sharp,Burning -Alleviating Factors/Interventions Medication, Inactivity/ Resting Wound Care Center Nurse 3 #3 RLE CLUSTER -Primary Dressing Covered/Secured with Dry Gauze #2 LLE INF -Primary Dressing Covered/Secured with Dry Gauze #1 LLE SUP -Primary Dressing Covered/Secured with Dry Gauze BLE -Multi-Layered Wrap Application Unna Boot - Bilateral -Unna- Bilat (Qty applied) 1 - Visit Discharge Discharge Condition Stable Ambulatory Status Walker Transportation Private Auto Medication Reconcilliation completed & No provided to patient/care provider Clinical Summary of Care Provided Yes Charges/Coding Visit Charges Office Visits / Consults: [id number] OV L4 New 45min Assessment/Plan Assessment/Plan (1) Venous stasis ulcer: CODE(S): I83.009 - Varicose veins of unspecified lower extremity with ulcer of unspecified site; L97.909 - Non-pressure chronic ulcer of unspecified part of unspecified lower leg with unspecified severity QUALIFIERS: Venous stasis ulcer site: calf Varicose vein presence: without varicose veins Laterality: right Non-pressure ulcer stage: with fat layer exposed Qualified Code(s): I87.2 - Venous insufficiency (chronic) (peripheral); L97.212 - Non-pressure chronic ulcer of right calf with fat layer exposed (2) Postphlebitic syndrome with both ulcer and inflammation: CODE(S): I87.039 - Postthrombotic syndrome with ulcer and inflammation of unspecified lower extremity (3) Venous stasis ulcer: CODE(S): I83.009 - Varicose veins of unspecified lower extremity with ulcer of unspecified site; L97.909 - Non-pressure chronic ulcer of unspecified part of unspecified lower leg with unspecified severity QUALIFIERS: Venous stasis ulcer site: calf Varicose vein presence: without varicose veins Laterality: left Non-pressure ulcer stage: with fat layer exposed Qualified Code(s): I87.2 - Venous insufficiency (chronic) (peripheral); L97.222 - Non-pressure chronic ulcer of left calf with fat layer exposed (4) Venous stasis dermatitis of both lower extremities: CODE(S): I87.2 - Venous insufficiency (chronic) (peripheral) (5) Chronic venous insufficiency: CODE(S): I87.2 - Venous insufficiency (chronic) (peripheral) (6) Right leg swelling: CODE(S): M79.89 - Other specified soft tissue disorders (7) Left leg swelling: CODE(S): M79.89 - Other specified soft tissue disorders (8) Hypertriglyceridemia: CODE(S): E78.1 - Pure hyperglyceridemia (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 QUALIFIERS: Villalba's esophagus type: without dysplasia Qualified Code(s): K22.70 - Villalba's esophagus without dysplasia (10) NAFLD (nonalcoholic fatty liver disease): CODE(S): K76.0 - Fatty (change of) liver, not elsewhere classified (11) Thrombocytopenia: CODE(S): D69.6 - Thrombocytopenia, unspecified (12) Liver disease: CODE(S): K76.9 - Liver disease, unspecified (13) History of pulmonary embolism: CODE(S): Z86.711 - Personal history of pulmonary embolism (14) HTN (hypertension): CODE(S): I10 - Essential (primary) hypertension (15) Testicular cancer: CODE(S): C62.90 - Malignant neoplasm of unspecified testis, unspecified whether descended or undescended (16) Hypogonadism: (17) Obstructive sleep apnea: CODE(S): G47.33 - Obstructive sleep apnea (adult) (pediatric) (18) Hepatic fibrosis: CODE(S): K74.00 - Hepatic fibrosis, unspecified (19) Diabetes mellitus type 2, insulin dependent: CODE(S): E11.9 - Type 2 diabetes mellitus without complications; Z79.4 - assisted (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 The ulcerations appear to be related to chronic dependency and chronic venous insufficiency. He also appears to have symptoms consistent with postphlebitic syndrome with inflammation and ulceration. He has a history of pulmonary embolism in the past, for which an inferior vena cava filter was previously placed. Though not certain, it is presumed that he also has a history of deep vein thrombosis of the lower extremities. A lengthy discussion has been undertaken with the patient regarding the appropriate conservative means in the management of his chronic venous disease. Leg elevation has been advised. Patient has been instructed to elevate his lower extremities to heart level, or higher, as much as possible. Leg elevation is to be implemented during both daytime and nighttime hours. Patient has been encouraged to sleep on a flat mattress at night. Patient has been advised to refrain from prolonged, idle sitting. Activity has been encouraged. The benefit of implementation of calf muscle pumps has been described. We are to implement compression to the lower extremities by means of Unna compression wraps, which will be applied bilaterally. These are to be changed twice weekly. It appears that the patient will benefit from the compression, as well as the zinc oxide topically for the ulcerations and venous stasis changes. The patient has been encouraged to continue his oral antibiotic regimen. The patient has been advised to optimize his nutritional intake, as well as his glycemic control. The patient's recent laboratory results from April 23, 2025, have been reviewed, and are as follows: White blood count 7.7, hemoglobin 11.5, hematocrit 36.8, platelets 97,000, sodium 140, potassium 3.8, chloride 101, BUN 30, creatinine 1.31, calcium 9.9, total bilirubin 0.93, AST 36, ALT 27, alkaline phosphatase 95, total protein 7.1, albumin 4.0. The patient is to return in 1 week for reevaluation. Total time: 48 minutes
[2025-05-03 11:49] VITALS: BP 163/53; PULSE 75; RESP 18; TEMP 36.4; BMI 45.6
== END 2025-05-06 23:59 | disposition home or self-care (01) ==
LOC: WC 11:15
PROVIDERS: PCP Family Medicine Geriatric Medicine; Referring Provider Family Medicine Geriatric Medicine; Visit Provider Surgery
DX: I83.212 Varicose veins of right lower extremity with both ulcer of calf and inflammation (principal); L97.212 Non-pressure chronic ulcer of right calf with fat layer exposed; L97.222 Non-pressure chronic ulcer of left calf with fat layer exposed; I83.222 Varicose veins of left lower extremity with both ulcer of calf and inflammation; Z68.42 Body mass index [BMI] 45.0-49.9, adult; E66.01 Morbid (severe) obesity due to excess calories; E11.22 Type 2 diabetes mellitus with diabetic chronic kidney disease; Z79.4 Long term (current) use of insulin; E11.59 Type 2 diabetes mellitus with other circulatory complications; N18.32 Chronic kidney disease, stage 3b; K76.0 Fatty (change of) liver, not elsewhere classified; K74.00 Hepatic fibrosis, unspecified; I12.9 Hypertensive chronic kidney disease with stage 1 through stage 4 chronic kidney disease, or unspecified chronic kidney disease; Z87.891 Personal history of nicotine dependence; D69.6 Thrombocytopenia, unspecified; E78.1 Pure hyperglyceridemia; R60.0 Localized edema; K22.70 Barrett's esophagus without dysplasia; G47.33 Obstructive sleep apnea (adult) (pediatric); M79.89 Other specified soft tissue disorders; Z86.711 Personal history of pulmonary embolism; Z79.84 Long term (current) use of oral hypoglycemic drugs; Z79.899 Other long term (current) drug therapy
CPT/HCPCS: 29580; 99213; G0463

== ENCOUNTER 2025-06-04 15:00 | Outpatient (RCR) | payer BC, SELFPAY ==
[2025-05-07 15:26] VITALS: BP 158/92; PULSE 86; RESP 20; TEMP 36.4
--- NOTE | 2025-05-08 08:51 | WC ---
PHOTO 05/07/25
--- NOTE | 2025-05-08 08:52 | WC ---
PHOTO 05/07/25 LLE SUP/LLE INFER
[2025-05-08 16:35] VITALS: BP 152/77; PULSE 86; RESP 18; TEMP 36.5
--- NOTE | 2025-05-09 11:30 | PCM.WC.HP ---
History of Present Illness Date of Service: 05/07/25 Chief Complaint: Chronic venous insufficiency with bilateral lower extremity venous stasis ulcerations History of Wound: This is a 59-year-old male who presented with severe venous stasis dermatitis in his lower extremities, as well as bilateral lower extremity venous stasis ulcerations. The patient had been treated by his primary care physician for suspected lower extremity cellulitis, with recent prescriptions for oral antibiotics. At the time of intake, the patient was taking Keflex and doxycycline orally. The patient experiences swelling and edema in both lower extremities. His ulcerations began as blisters several months prior to presentation, which subsequently developed into open ulcerations. A wound culture of the left leg was performed on April 26, 2025, which revealed very rare coag negative staph. The patient is obese, with a BMI of 45.6. 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 He suffers from chronic swelling and edema in his lower extremities. He sleeps in a chair at night. He has a history of pulmonary embolism, and has previously undergone placement of an inferior vena cava filter. According the patient, the filter was subsequently removed. The patient suffers from multiple other pre-existing medical conditions, which are listed herein. He has a history of testicular cancer, for which he has undergone bilateral orchiectomy. [facility] Medical History Chronic kidney disease, stage 3b Diabetes mellitus type 2, insulin dependent Hepatic fibrosis Obstructive sleep apnea Hypogonadism Postphlebitic syndrome with both ulcer and inflammation Venous stasis ulcer Left leg swelling Right leg swelling Venous stasis dermatitis of both lower extremities Venous stasis ulcer Chronic venous insufficiency History of pulmonary embolism Wears glasses Insulin dependent diabetes mellitus Back pain Dietary restriction History of GI bleed Former smoker CPAP (continuous positive airway pressure) dependence Sleep apnea History of edema History of echocardiogram History of stress test HLD (hyperlipidemia) Nausea and vomiting Hypogonadism in male Diarrhea Allergic rhinitis Blood in stool Presence of inferior vena cava filter Testicular cancer Gastric ulcer HTN (hypertension) Pulmonary embolism Diabetes Lactic acidosis Syncope Home Medications ?Medication ?Instructions ?Recorded ?Last Taken ?Type metformin 1,000 mg tablet 1 tab PO BIDCM DM 03/24/18 12/24/20 History albuterol sulfate 90 mcg/actuation 90 mcg inhalation Q4H PRN PRN 04/09/18 Unknown History aerosol inhaler wheezing/SOB testosterone 2 pump topical DAILY testicular ca 04/09/18 04/09/18 History insulin aspar prot-insulin aspart 30 unit subcut BID 02/22/23 Unknown History 100 unit/mL (70-30) subcutaneous pen (Novolog Mix 70-30FlexPen U-100) insulin glargine U-300 conc 300 240 unit subcut DAILY 02/22/23 Unknown History unit/mL (3 mL) subcutaneous pen (Toujeo Max U-300 SoloStar) losartan 100 mg tablet 100 mg PO DAILY 02/22/23 07/04/23 History rosuvastatin 40 mg tablet 40 mg PO DAILY 02/22/23 Unknown History pantoprazole 40 mg tablet,delayed 40 mg PO DAILY 1 month #30 tabs 10/26/23 Unknown Rx release furosemide 40 mg tablet 40 mg PO DAILY 10/27/23 Unknown History ipratropium bromide 42 mcg (0.06 2 spray intranasal TID 10/27/23 Unknown History %) nasal spray cholecalciferol (vitamin D3) 1,250 1,250 mcg PO QWEEK 1 month #4 caps 07/17/24 Unknown Rx mcg (50,000 unit) capsule tirzepatide 2.5 mg/0.5 mL 2.5 mg subcut QWEEK 10/18/24 Unknown History subcutaneous pen injector (Edwin) fenofibrate nanocrystallized 48 mg 48 mg PO QHS 1 month #30 tabs 10/19/24 Unknown Rx tablet icosapent ethyl 1 gram capsule 2 g (2 x 1 gram) PO BID 1 month 10/19/24 Unknown Rx #120 caps magnesium citrate 300 ml PO X1 #1 BOTTLE 12/14/24 Unknown Rx Allergy/AdvReac Type Severity Reaction Status Date / Time No Known Allergies Allergy Verified 04/30/25 14:06 Family History Mother Diabetes Sister Diabetes Brother Diabetes Father Cancer lung Surgical History Hx of appendectomy S/P insertion of IVC (inferior vena caval) filter History of back surgery History of orchiectomy, bilateral Social History Smoking Status: Former smoker Vital Signs Vital Signs Vital Signs: 05/08/25 16:35 Temperature 97.7 F L Temperature Source Temporal Pulse Rate 86 Respiratory Rate 18 Blood Pressure 152/77 H Blood Pressure Mean 102 Blood Pressure Source Monitor Blood Pressure Position Sitting Blood Pressure Location Left Arm Oxygen Delivery Method Room Air Physical Exam Const alert, oriented x3, no apparent distress and well nourished Constitutional Narrative: The patient is morbidly obese. His BMI is 45.6 General Appearance: cooperative, comfortable and well developed Orientation / Consciousness: awake, oriented to person, oriented to place and oriented to time Exam Limitations: no limitations HEENT normocephalic and head/scalp atraumatic Head and Scalp: normal to inspection, normocephalic and atraumatic Face and Sinus: normal facial exam Nose: external nose normal External Ear: external ears normal Teeth and Gingiva: poor dentition Eyes EOMs intact bilaterally General Eye: normal appearance of both eyes Resp normal respiratory effort, normal air movement, no retractions and no use of accessory muscles Effort and Inspection: able to speak in complete sentences Extremity no calf tenderness General Extremity: Negative for clubbing or cyanosis Skin Wound Narrative: The swelling and edema in the patient's lower extremities is much improved. The venous stasis dermatitis in the gaiter areas is also improved. A clustered ulceration is noted on the right pretibial surface, with increasing areas of pink, healthy granulation tissue. There remains a small amount of bioburden and nonviable material. Two ulcerations are noted on the anterolateral aspect of the distal left lower extremity, which demonstrate a moderate amount of necrotic and nonviable tissue, though increasing areas of pink, healthy granulation tissue. Dimensions of the ulcerations are noted elsewhere. The ulcerations are full-thickness in nature, extending through all layers of the dermis and into the subcutaneous tissues. Ulcer margins are well beveled. Neuro oriented x3, CN's II-XII intact bilaterally, moves all extremities, no focal motor deficits and no sensory deficits noted Sensorium / Orientation: awake, alert, oriented to person, oriented to place and oriented to time Speech: speech normal Psych Appearance: grossly normal and appropriate Attitude: calm Activity / Motor Behavior: appropriate eye contact Speech: normal speech Mood & Affect: euthymic mood Thought Process: normal thought process Thought Content: normal thought content Attention / Concentration: attention grossly intact Debridement Note Debridement Note Wound debrided: Right pretibial ulceration Laterality: Right Type of Debridement: Excisional debridement Anesthesia Used: 5% Lidocaine Gel Depth: Down to and including healthy tissue and in the subcutaneous layer Percentage of wound debrided: 100 Instrument Used: 5mm curette Tissue Removed: Bioburden and nonviable tissue Severity: Fat Layer Exposed Amount of bleeding with debridement: Mild Bleeding Controlled with: Compression and gauze Patient tolerated procedure: Patient tolerated procedure well Post-Debridement Measurements and Additional Note: Post-Debridement Measurements/Treatment - Nurse 1 - General Ulcer Assessment Start: 05/07/25 15:23 Freq: Status: Active Protocol: DEE[facility]KA[employer] Look MediaTRISTIN Activity Type Activity Date Activity User E-sign Co-sign Detail Recorded Client Recorded Date Recorded By Document 05/07/25 15:26 [facility] [id number] 05/07/25 15:42 [facility] Document 05/08/25 16:35 DS [id number] 05/08/25 16:37 DS 05/07/25 05/08/25 15:26 16:35 - Today's Visit Information Type of service Follow-up Visit Follow-up Visit (Physician/CLEAN OUT DRILLER HELPER (Physician/CLEAN OUT DRILLER HELPER ) ) Arrival Mode Ambulatory Ambulatory Transfer Assistance None Patient Identification Verified (Name & Yes Yes ) Patient Requires Transmission-Based No Precautions Vital Signs Temperature (97.8 F-99.1 F) 97.5 F L 97.7 F L Temperature Source Temporal Temporal Pulse Rate (60-100) 86 86 Pulse Location Monitor Monitor Respiratory Rate (12-18) 20 H 18 Respiratory rate source Observation Observation Oxygen Delivery Method Room Air Room Air Blood Pressure (90/60-120/80) 158/92 H 152/77 H Blood Pressure Mean 114 102 Source Monitor Monitor Position Sitting Sitting Blood Pressure Location Right Arm Left Arm History Since Last Visit- (Skip if this is Patient's initial visit) Have you changed medications since your No last visit? Any new allergies or adverse reactions No Had a fall/change in ADL's that may No increase risk of falls Signs or symptoms of abuse and/or No neglect since last visit Have you been in the hospital since your No last visit? Has dressing in place as prescribed Yes Has compression in place as prescribed Yes Has offloadiing in place as prescribed N/A Experienced any changes in pain level or No management Left Footwear Diabetic Shoe Right Footwear Diabetic Shoe Pain Scale: 0-10 Numeric Is Patient Pain Free? Yes Yes - Nurse 1 - General Ulcer Measurement Start: 05/07/25 15:23 Freq: Status: Active Protocol: Activity Type Activity Date Activity User E-sign Co-sign Detail Recorded Client Recorded Date Recorded By Document 05/07/25 15:26 [facility] [id number] 05/07/25 15:42 [facility] 05/07/25 15:26 Wound Center Nurse 1 #3 RLE CLUSTER -Combined with other wound No -Current Size (cm) - Length 1 -Current Size (cm) - Width 0.6 -Current Size (cm) - Depth 0.1 -Total Square Cm 0.6 -Date of Last Picture (Recall this 05/07/25 field) -Photo Taken Yes -Epithelialization Small 1-33% -Tunneling No -Undermining/Tunneling No -Circular Undermining No -Exudate Amt Medium -Exudate Type Serosanguineous -Wound Margin Distinct, Outline Attached -Granulation Amt Large (67-100%) -Granulation Quality Red -Slough/Fibrin Yes -Necrosis Amt Small (1-33%) -Necrotic Tissue Type Adherent Slough -Texture (Shawanda-wound Skin Appearance) Assessed, Scarring -Moisture (Shawanda-wound Skin Appearance) Assessed -Color (Shawanda-wound Skin Appearance) Assessed -Temperature (Shawanda-wound Skin No Abnormality Appearance) (Pt Warm) -Tenderness on Palpation (Shawanda-wound No Skin Appearance) -Ulcer Cleansing Soap and Water -Foul Odor after Cleansing No -Anesthetic Used 5% Lidocaine Gel #2 LLE INF -Combined with other wound No -Current Size (cm) - Length 2.4 -Current Size (cm) - Width 1.7 -Current Size (cm) - Depth 0.2 -Total Square Cm 4.08 -Date of Last Picture (Recall this 05/07/25 field) -Photo Taken Yes -Epithelialization Small 1-33% -Tunneling No -Undermining/Tunneling No -Circular Undermining No -Exudate Amt Large -Exudate Type Serosanguineous -Wound Margin Distinct, Outline Attached -Granulation Amt Medium (34-66%) -Granulation Quality Red -Slough/Fibrin Yes -Necrosis Amt Medium (34-66%) -Necrotic Tissue Type Adherent Slough -Texture (Shawanda-wound Skin Appearance) Assessed, Scarring -Moisture (Shawanda-wound Skin Appearance) Assessed -Color (Shawanda-wound Skin Appearance) Assessed -Temperature (Shawanda-wound Skin No Abnormality Appearance) (Pt Warm) -Tenderness on Palpation (Shawanda-wound No Skin Appearance) -Ulcer Cleansing Soap and Water -Foul Odor after Cleansing No -Anesthetic Used 5% Lidocaine Gel #1 LLE SUP -Combined with other wound No -Current Size (cm) - Length 2.8 -Current Size (cm) - Width 1.6 -Current Size (cm) - Depth 0.1 -Total Square Cm 4.48 -Date of Last Picture (Recall this 05/07/25 field) -Photo Taken Yes -Epithelialization Small 1-33% -Tunneling No -Undermining/Tunneling No -Circular Undermining No -Exudate Amt Large -Exudate Type Serosanguineous -Wound Margin Distinct, Outline Attached -Granulation Amt Medium (34-66%) -Granulation Quality Red -Slough/Fibrin Yes -Necrosis Amt Medium (34-66%) -Necrotic Tissue Type Adherent Slough -Texture (Shawanda-wound Skin Appearance) Assessed, Scarring -Moisture (Shawanda-wound Skin Appearance) Assessed -Color (Shawanda-wound Skin Appearance) Assessed -Temperature (Shawanda-wound Skin No Abnormality Appearance) (Pt Warm) -Tenderness on Palpation (Shawanda-wound No Skin Appearance) -Ulcer Cleansing Soap and Water -Foul Odor after Cleansing No -Anesthetic Used 5% Lidocaine Gel Lower Limb Edema Present Yes Right Calf (cm) 41 Right Ankle (cm) 22.8 Left Calf (cm) 42.5 Left Ankle (cm) 23.4 WC - Nurse 2 - General Ulcer CM Notes Start: 05/07/25 15:23 Freq: Status: Active Protocol: Activity Type Activity Date Activity User E-sign Co-sign Detail Recorded Client Recorded Date Recorded By Document 05/07/25 15:51 DS [id number] 05/07/25 16:01 DS 05/07/25 15:51 Wound Center Nurse 2 #3 RLE CLUSTER -Time 15:53 -Correct Patient Yes -Correct Side, Site, Position Yes -Correct Procedure Yes -Procedure Performed Yes -Type of Procedure Debridement -Clinical Debridement Subcutaneous -Tissue Removed Subcutaneous -Post Debridement (cm) - Length 5.7 -Post Debridement (cm) - Width 3.0 -Post Debridement (cm) - Depth 0.1 -Total Square (Post) (cm) 17.10 -Area of Debridement (cm) - Length 5.7 -Area of Debridement (cm) - Width 3.0 -Total Square (Area) (cm) 17.10 -Tunneling No -Undermining/Tunneling No -Circular Undermining No -Wound/Ulcer Outcome Not Healed -Ulcer Cleansing gauze -Foul Odor after Cleansing No -Bioengineered Tissue No -Bleeding Controlled with Pressure -Treatment Response Procedure Tolerated Well -Debridement - Subq, 1st 20sq cm Yes -Debridement, SubQ, ea addt'l 20sq cm 1 or part thereof #2 LLE INF -Time 15:53 -Correct Patient Yes -Correct Side, Site, Position Yes -Correct Procedure Yes -Procedure Performed Yes -Type of Procedure Debridement -Clinical Debridement Subcutaneous -Tissue Removed Subcutaneous -Post Debridement (cm) - Length 2.5 -Post Debridement (cm) - Width 2.0 -Post Debridement (cm) - Depth 0.1 -Total Square (Post) (cm) 5.00 -Area of Debridement (cm) - Length 2.5 -Area of Debridement (cm) - Width 2.0 -Total Square (Area) (cm) 5.00 -Tunneling No -Undermining/Tunneling No -Circular Undermining No -Wound/Ulcer Outcome Not Healed -Ulcer Cleansing gauze -Foul Odor after Cleansing No -Bioengineered Tissue No -Bleeding Controlled with Pressure -Treatment Response Procedure Tolerated Well -Debridement - Subq, 1st 20sq cm No #1 LLE SUP -Time 15:54 -Correct Patient Yes -Correct Side, Site, Position Yes -Correct Procedure Yes -Procedure Performed Yes -Type of Procedure Debridement -Clinical Debridement Subcutaneous -Tissue Removed Subcutaneous -Post Debridement (cm) - Length 3.0 -Post Debridement (cm) - Width 2.0 -Post Debridement (cm) - Depth 0.1 -Total Square (Post) (cm) 6.00 -Area of Debridement (cm) - Length 3.0 -Area of Debridement (cm) - Width 2.0 -Total Square (Area) (cm) 6.00 -Tunneling No -Undermining/Tunneling No -Circular Undermining No -Wound/Ulcer Outcome Not Healed -Ulcer Cleansing gauze -Foul Odor after Cleansing No -Bioengineered Tissue No -Bleeding Controlled with Pressure -Treatment Response Procedure Tolerated Well -Debridement - Subq, 1st 20sq cm No Pain Scale: 0-10 Numeric Is Patient Pain Free? Yes - Nurse 3 - General Ulcer D/C NN Start: 05/07/25 15:23 Freq: Status: Active Protocol: Activity Type Activity Date Activity User E-sign Co-sign Detail Recorded Client Recorded Date Recorded By Document 05/07/25 16:00 KW [id number] 05/07/25 16:02 KW Document 05/08/25 16:37 DS [id number] 05/08/25 16:38 DS 05/07/25 05/08/25 16:00 16:37 Wound Care Center Nurse 3 #3 RLE CLUSTER -Other Dressing hydrogel -Primary Dressing Covered/Secured with Dry Gauze & Roll Gauze, Secured with Tape #2 LLE INF -Other Dressing hydrogel -Primary Dressing Covered/Secured with Dry Gauze & Roll Gauze, Secured with Tape #1 LLE SUP -Other Dressing hydrogel -Primary Dressing Covered/Secured with Dry Gauze & Roll Gauze, Secured with Tape BLE -Multi-Layered Wrap Application Unna Boot - Bilateral -Tubular Bandage Single Layer -Size of Tubigrip Used Size E -Size E ($) 2 -Unna- Bilat (Qty applied) 1 Pain Scale: 0-10 Numeric Is Patient Pain Free? Yes Yes - Visit Discharge Discharge Condition Stable Stable Ambulatory Status Ambulatory Ambulatory Transportation Private Auto Medication Reconcilliation completed & No provided to patient/care provider Clinical Summary of Care Provided Yes Additional Wound Wound debrided: Left lower extremity ulcerations, x 2 Laterality: Left Type of Debridement: Excisional debridement Anesthesia Used: 5% Lidocaine Gel Depth: Down to and including healthy tissue and in the subcutaneous layer Percentage of wound debrided: 100 Instrument Used: 5mm curette Tissue Removed: Bioburden and nonviable tissue Severity: Fat Layer Exposed Amount of bleeding with debridement: Mild Bleeding Controlled with: Compression and gauze Patient tolerated procedure: Patient tolerated procedure well Charges/Coding Procedures Integumentary [id number]: [id number] Elida subq tissue 20 sq cm/< Add On Codes: 48076 Elida subq tissue add-on Assessment/Plan Assessment/Plan (1) Venous stasis ulcer: CODE(S): I83.009 - Varicose veins of unspecified lower extremity with ulcer of unspecified site; L97.909 - Non-pressure chronic ulcer of unspecified part of unspecified lower leg with unspecified severity QUALIFIERS: Venous stasis ulcer site: calf Varicose vein presence: without varicose veins Laterality: right Non-pressure ulcer stage: with fat layer exposed Qualified Code(s): I87.2 - Venous insufficiency (chronic) (peripheral); L97.212 - Non-pressure chronic ulcer of right calf with fat layer exposed (2) Venous stasis ulcer: CODE(S): I83.009 - Varicose veins of unspecified lower extremity with ulcer of unspecified site; L97.909 - Non-pressure chronic ulcer of unspecified part of unspecified lower leg with unspecified severity QUALIFIERS: Venous stasis ulcer site: calf Varicose vein presence: without varicose veins Laterality: left Non-pressure ulcer stage: with fat layer exposed Qualified Code(s): I87.2 - Venous insufficiency (chronic) (peripheral); L97.222 - Non-pressure chronic ulcer of left calf with fat layer exposed (3) Postphlebitic syndrome with both ulcer and inflammation: CODE(S): I87.039 - Postthrombotic syndrome with ulcer and inflammation of unspecified lower extremity (4) Venous stasis dermatitis of both lower extremities: CODE(S): I87.2 - Venous insufficiency (chronic) (peripheral) (5) Chronic venous insufficiency: CODE(S): I87.2 - Venous insufficiency (chronic) (peripheral) (6) Right leg swelling: CODE(S): M79.89 - Other specified soft tissue disorders (7) Left leg swelling: CODE(S): M79.89 - Other specified soft tissue disorders (8) Hypertriglyceridemia: CODE(S): E78.1 - Pure hyperglyceridemia (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 QUALIFIERS: Villalba's esophagus type: without dysplasia Qualified Code(s): K22.70 - Villalba's esophagus without dysplasia (10) NAFLD (nonalcoholic fatty liver disease): CODE(S): K76.0 - Fatty (change of) liver, not elsewhere classified (11) Thrombocytopenia: CODE(S): D69.6 - Thrombocytopenia, unspecified (12) Liver disease: CODE(S): K76.9 - Liver disease, unspecified (13) History of pulmonary embolism: CODE(S): Z86.711 - Personal history of pulmonary embolism (14) HTN (hypertension): CODE(S): I10 - Essential (primary) hypertension (15) Testicular cancer: CODE(S): C62.90 - Malignant neoplasm of unspecified testis, unspecified whether descended or undescended (16) Hypogonadism: (17) Obstructive sleep apnea: CODE(S): G47.33 - Obstructive sleep apnea (adult) (pediatric) (18) Hepatic fibrosis: CODE(S): K74.00 - Hepatic fibrosis, unspecified (19) Diabetes mellitus type 2, insulin dependent: CODE(S): E11.9 - Type 2 diabetes mellitus without complications; Z79.4 - superintendent terminal (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 The ulcerations appear to be related to chronic dependency and chronic venous insufficiency. He also appears to have symptoms consistent with postphlebitic syndrome with inflammation and ulceration. He has a history of pulmonary embolism in the past, for which an inferior vena cava filter was previously placed. Though not certain, it is presumed that he also has a history of deep vein thrombosis of the lower extremities. A lengthy discussion has been undertaken with the patient regarding the appropriate conservative means in the management of his chronic venous disease. Leg elevation has been advised. The patient has been instructed to elevate his lower extremities to heart level, or higher, as much as possible. Leg elevation is to be implemented during both daytime and nighttime hours. The patient has been encouraged to sleep on a flat mattress at night. The patient has been advised to refrain from prolonged, idle sitting. Activity has been encouraged. The benefit of implementation of calf muscle pumps has been described. We are to continue compression to the lower extremities by means of Unna compression wraps, which will be applied bilaterally. These are to be changed twice weekly. It appears that the patient is benefiting from the compression, as well as the zinc oxide topically for the ulcerations and venous stasis changes. However, since the patient has an appointment with his primary care physician, Dr. Durham, 1 day following this appointment, we are to apply hydrogel to his ulcerations with Tubigrips, which will allow Dr. Durham to inspect his lower extremities and ulcerations. The patient is to return to the Wound Center immediately following his appointment with Dr. Durham, at which time the Unna compression boots will be reapplied. The patient has been advised to optimize his nutritional intake, as well as his glycemic control. The patient's recent laboratory results from April 23, 2025, have been reviewed, and are as follows: White blood count 7.7, hemoglobin 11.5, hematocrit 36.8, platelets 97,000, sodium 140, potassium 3.8, chloride 101, BUN 30, creatinine 1.31, calcium 9.9, total bilirubin 0.93, AST 36, ALT 27, alkaline phosphatase 95, total protein 7.1, albumin 4.0. The patient indicates that Dr. Durham has ordered pneumatic mechanical compression pumps, which are soon to be received. Patient has been requested to bring these to his next Wound Center appointment. The patient is to return in 1 week for reevaluation. Total time: 26 minutes
[2025-05-14 08:12] VITALS: BP 157/93; PULSE 91; RESP 18; TEMP 36.1
--- NOTE | 2025-05-15 08:42 | WC ---
PHOTO 05/14/25 BARRY CHAN
--- NOTE | 2025-05-15 08:44 | WC ---
PHOTO 05/14/25 TORRIE SUPER/INF
--- NOTE | 2025-05-15 08:45 | WC ---
PHOTO 05/14/25 TORRIE MCWILLIAMS
--- NOTE | 2025-05-15 08:46 | WC ---
PHOTO 05/14/25 TORRIE MELARA
[2025-05-17 12:54] VITALS: BP 151/76; PULSE 87; RESP 18; TEMP 36.2
--- NOTE | 2025-05-19 16:08 | PCM.WC.HP ---
History of Present Illness Date of Service: 05/14/25 Chief Complaint: Chronic venous insufficiency with bilateral lower extremity venous stasis ulcerations History of Wound: This is a 59-year-old male who presented with severe venous stasis dermatitis in his lower extremities, as well as bilateral lower extremity venous stasis ulcerations. The patient had been treated by his primary care physician for suspected lower extremity cellulitis, with recent prescriptions for oral antibiotics. At the time of intake, the patient was taking Keflex and doxycycline orally. The patient experiences swelling and edema in both lower extremities. His ulcerations began as blisters several months prior to presentation, which subsequently developed into open ulcerations. A wound culture of the left leg was performed on April 26, 2025, which revealed very rare coag negative staph. The patient is obese, with a BMI of 45.6. 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 He suffers from chronic swelling and edema in his lower extremities. He sleeps in a chair at night. He has a history of pulmonary embolism, and has previously undergone placement of an inferior vena cava filter. According the patient, the filter was subsequently removed. The patient suffers from multiple other pre-existing medical conditions, which are listed herein. He has a history of testicular cancer, for which he has undergone bilateral orchiectomy. [facility] Medical History Chronic kidney disease, stage 3b Diabetes mellitus type 2, insulin dependent Hepatic fibrosis Obstructive sleep apnea Hypogonadism Postphlebitic syndrome with both ulcer and inflammation Venous stasis ulcer Left leg swelling Right leg swelling Venous stasis dermatitis of both lower extremities Venous stasis ulcer Chronic venous insufficiency History of pulmonary embolism Wears glasses Insulin dependent diabetes mellitus Back pain Dietary restriction History of GI bleed Former smoker CPAP (continuous positive airway pressure) dependence Sleep apnea History of edema History of echocardiogram History of stress test HLD (hyperlipidemia) Nausea and vomiting Hypogonadism in male Diarrhea Allergic rhinitis Blood in stool Presence of inferior vena cava filter Testicular cancer Gastric ulcer HTN (hypertension) Pulmonary embolism Diabetes Lactic acidosis Syncope Home Medications ?Medication ?Instructions ?Recorded ?Last Taken ?Type metformin 1,000 mg tablet 1 tab PO BIDCM DM 03/24/18 12/24/20 History albuterol sulfate 90 mcg/actuation 90 mcg inhalation Q4H PRN PRN 04/09/18 Unknown History aerosol inhaler wheezing/SOB testosterone 2 pump topical DAILY testicular ca 04/09/18 04/09/18 History insulin aspar prot-insulin aspart 30 unit subcut BID 02/22/23 Unknown History 100 unit/mL (70-30) subcutaneous pen (Novolog Mix 70-30FlexPen U-100) insulin glargine U-300 conc 300 240 unit subcut DAILY 02/22/23 Unknown History unit/mL (3 mL) subcutaneous pen (Toujeo Max U-300 SoloStar) losartan 100 mg tablet 100 mg PO DAILY 02/22/23 07/04/23 History rosuvastatin 40 mg tablet 40 mg PO DAILY 02/22/23 Unknown History pantoprazole 40 mg tablet,delayed 40 mg PO DAILY 1 month #30 tabs 10/26/23 Unknown Rx release furosemide 40 mg tablet 40 mg PO DAILY 10/27/23 Unknown History ipratropium bromide 42 mcg (0.06 2 spray intranasal TID 10/27/23 Unknown History %) nasal spray cholecalciferol (vitamin D3) 1,250 1,250 mcg PO QWEEK 1 month #4 caps 07/17/24 Unknown Rx mcg (50,000 unit) capsule tirzepatide 2.5 mg/0.5 mL 2.5 mg subcut QWEEK 10/18/24 Unknown History subcutaneous pen injector (Edwin) fenofibrate nanocrystallized 48 mg 48 mg PO QHS 1 month #30 tabs 10/19/24 Unknown Rx tablet icosapent ethyl 1 gram capsule 2 g (2 x 1 gram) PO BID 1 month 10/19/24 Unknown Rx #120 caps magnesium citrate 300 ml PO X1 #1 BOTTLE 12/14/24 Unknown Rx Allergy/AdvReac Type Severity Reaction Status Date / Time No Known Allergies Allergy Verified 04/30/25 14:06 Family History Mother Diabetes Sister Diabetes Brother Diabetes Father Cancer lung Surgical History Hx of appendectomy S/P insertion of IVC (inferior vena caval) filter History of back surgery History of orchiectomy, bilateral Social History Smoking Status: Former smoker Physical Exam Const alert, oriented x3, no apparent distress and well nourished Constitutional Narrative: The patient is morbidly obese. His BMI is 45.6 General Appearance: cooperative, comfortable and well developed Orientation / Consciousness: awake, oriented to person, oriented to place and oriented to time Exam Limitations: no limitations HEENT normocephalic and head/scalp atraumatic Head and Scalp: normal to inspection, normocephalic and atraumatic Face and Sinus: normal facial exam Nose: external nose normal External Ear: external ears normal Teeth and Gingiva: poor dentition Eyes EOMs intact bilaterally General Eye: normal appearance of both eyes Resp normal respiratory effort, normal air movement, no retractions and no use of accessory muscles Effort and Inspection: able to speak in complete sentences Extremity General Extremity: Negative for clubbing or cyanosis Skin Wound Narrative: The swelling and edema in the patient's lower extremities is much improved. The venous stasis dermatitis in the gaiter areas is also improved. A clustered ulceration in the right lower extremity is now healed and epithelialized. Two ulcerations are noted on the anterolateral aspect of the distal left lower extremity, which demonstrate a small amount of bioburden, as well as necrotic and nonviable tissue, though increasing areas of pink, healthy granulation tissue. Dimensions of the ulcerations are noted elsewhere. The ulcerations appear to be decreasing in size. The ulcerations are full-thickness in nature, extending through all layers of the dermis and into the subcutaneous tissues. Ulcer margins are well beveled. Neuro oriented x3, CN's II-XII intact bilaterally, moves all extremities, no focal motor deficits and no sensory deficits noted Sensorium / Orientation: awake, alert, oriented to person, oriented to place and oriented to time Speech: speech normal Psych Appearance: grossly normal and appropriate Attitude: calm Activity / Motor Behavior: appropriate eye contact Speech: normal speech Mood & Affect: euthymic mood Thought Process: normal thought process Thought Content: normal thought content Attention / Concentration: attention grossly intact Debridement Note Debridement Note Wound debrided: Left lower extremity ulcerations x 2 Laterality: Left Type of Debridement: Excisional debridement Anesthesia Used: 5% Lidocaine Gel Depth: Down to and including healthy tissue and in the subcutaneous layer Percentage of wound debrided: 100 Instrument Used: 5mm curette Tissue Removed: Bioburden and devitalized tissue Severity: Fat Layer Exposed Amount of bleeding with debridement: Mild Bleeding Controlled with: Compression and gauze Patient tolerated procedure: Patient tolerated procedure well Post-Debridement Measurements and Additional Note: Post-Debridement Measurements/Treatment - Nurse 1 - General Ulcer Assessment Start: 05/07/25 15:23 Freq: Status: Active Protocol: JENY Activity Type Activity Date Activity User E-sign Co-sign Detail Recorded Client Recorded Date Recorded By Document 05/07/25 15:26 BMF [id number] 05/07/25 15:42 BMF Document 05/08/25 16:35 DS [id number] 05/08/25 16:37 DS Document 05/14/25 08:12 BMF [id number] 05/14/25 08:27 BMF Document 05/17/25 12:54 DS [id number] 05/17/25 12:54 DS 05/07/25 05/08/25 05/14/25 15:26 16:35 08:12 - Today's Visit Information Type of service Follow-up Visit Follow-up Visit Follow-up Visit (Physician/BAR MACHINE OPERATOR PRODUCTION (Physician/BAR MACHINE OPERATOR PRODUCTION (Physician/BAR MACHINE OPERATOR PRODUCTION ) ) ) Arrival Mode Ambulatory Ambulatory Ambulatory Transfer Assistance None None Patient Identification Verified (Name & Yes Yes Yes ) Patient Requires Transmission-Based No No Precautions Vital Signs Temperature (97.8 F-99.1 F) 97.5 F L 97.7 F L 96.9 F L Temperature Source Temporal Temporal Temporal Pulse Rate (60-100) 86 86 91 Pulse Location Monitor Monitor Monitor Respiratory Rate (12-18) 20 H 18 18 Respiratory rate source Observation Observation Observation Oxygen Delivery Method Room Air Room Air Room Air Blood Pressure (90/60-120/80) 158/92 H 152/77 H 157/93 H Blood Pressure Mean 114 102 114 Source Monitor Monitor Monitor Position Sitting Sitting Sitting Blood Pressure Location Right Arm Left Arm Right Arm History Since Last Visit- (Skip if this is Patient's initial visit) Have you changed medications since your No No last visit? Any new allergies or adverse reactions No No Had a fall/change in ADL's that may No No increase risk of falls Signs or symptoms of abuse and/or No No neglect since last visit Have you been in the hospital since your No No last visit? Has dressing in place as prescribed Yes Yes Has compression in place as prescribed Yes Yes Has offloadiing in place as prescribed N/A N/A Experienced any changes in pain level or No No management Left Footwear Diabetic Shoe Diabetic Shoe Right Footwear Diabetic Shoe Diabetic Shoe Pain Scale: 0-10 Numeric Is Patient Pain Free? Yes Yes Yes 05/17/25 12:54 - Today's Visit Information Type of service Nurse-only Visit Arrival Mode Ambulatory Transfer Assistance Patient Identification Verified (Name & Yes ) Patient Requires Transmission-Based Precautions Vital Signs Temperature (97.8 F-99.1 F) 97.2 F L Temperature Source Temporal Pulse Rate (60-100) 87 Pulse Location Monitor Respiratory Rate (12-18) 18 Respiratory rate source Observation Oxygen Delivery Method Room Air Blood Pressure (90/60-120/80) 151/76 H Blood Pressure Mean 101 Source Monitor Position Sitting Blood Pressure Location Right Arm History Since Last Visit- (Skip if this is Patient's initial visit) Have you changed medications since your No last visit? Any new allergies or adverse reactions No Had a fall/change in ADL's that may No increase risk of falls Signs or symptoms of abuse and/or No neglect since last visit Have you been in the hospital since your No last visit? Has dressing in place as prescribed Yes Has compression in place as prescribed Yes Has offloadiing in place as prescribed N/A Experienced any changes in pain level or No management Left Footwear Regular Shoe Right Footwear Regular Shoe Pain Scale: 0-10 Numeric Is Patient Pain Free? Yes - Nurse 1 - General Ulcer Measurement Start: 05/07/25 15:23 Freq: Status: Active Protocol: Activity Type Activity Date Activity User E-sign Co-sign Detail Recorded Client Recorded Date Recorded By Document 05/07/25 15:26 [facility] [id number] 05/07/25 15:42 [facility] Document 05/14/25 08:12 [facility] [id number] 05/14/25 08:27 [facility] 05/07/25 05/14/25 15:26 08:12 Wound Center Nurse 1 #3 RLE CLUSTER -Combined with other wound No No -Current Size (cm) - Length 1 0.1 -Current Size (cm) - Width 0.6 0.1 -Current Size (cm) - Depth 0.1 0.1 -Total Square Cm 0.6 0.01 -Date of Last Picture (Recall this 07/01/25 07/08/25 field) -Photo Taken Yes Yes -Epithelialization Small 1-33% Large 67-100% -Tunneling No -Undermining/Tunneling No -Circular Undermining No -Exudate Amt Medium -Exudate Type Serosanguineous -Wound Margin Distinct, Outline Attached -Granulation Amt Large (67-100%) -Granulation Quality Red -Slough/Fibrin Yes -Necrosis Amt Small (1-33%) -Necrotic Tissue Type Adherent Slough -Texture (Shawanda-wound Skin Appearance) Assessed, Scarring Scarring -Moisture (Shawanda-wound Skin Appearance) Assessed -Color (Shawanda-wound Skin Appearance) Assessed -Temperature (Shawanda-wound Skin No Abnormality Appearance) (Pt Warm) -Tenderness on Palpation (Shawanda-wound No Skin Appearance) -Ulcer Cleansing Soap and Water -Foul Odor after Cleansing No -Anesthetic Used 5% Lidocaine Gel #2 LLE INF -Combined with other wound No No -Current Size (cm) - Length 2.4 2.2 -Current Size (cm) - Width 1.7 1.4 -Current Size (cm) - Depth 0.2 0.1 -Total Square Cm 4.08 3.08 -Date of Last Picture (Recall this 05/07/25 05/14/25 field) -Photo Taken Yes Yes -Epithelialization Small 1-33% Small 1-33% -Tunneling No No -Undermining/Tunneling No No -Circular Undermining No No -Exudate Amt Large Medium -Exudate Type Serosanguineous Serosanguineous -Wound Margin Distinct, Flat & Intact Outline Attached -Granulation Amt Medium (34-66%) Medium (34-66%) -Granulation Quality Red Red -Slough/Fibrin Yes Yes -Necrosis Amt Medium (34-66%) Medium (34-66%) -Necrotic Tissue Type Adherent Slough Adherent Slough -Texture (Shawanda-wound Skin Appearance) Assessed, Assessed, Scarring Scarring -Moisture (Shawanda-wound Skin Appearance) Assessed Assessed -Color (Shawanda-wound Skin Appearance) Assessed Assessed -Temperature (Shawanda-wound Skin No Abnormality No Abnormality Appearance) (Pt Warm) (Pt Warm) -Tenderness on Palpation (Shawanda-wound No No Skin Appearance) -Ulcer Cleansing Soap and Water Soap and Water -Foul Odor after Cleansing No No -Anesthetic Used 5% Lidocaine 5% Lidocaine Gel Gel #1 LLE SUP -Combined with other wound No No -Current Size (cm) - Length 2.8 2.5 -Current Size (cm) - Width 1.6 1.5 -Current Size (cm) - Depth 0.1 0.1 -Total Square Cm 4.48 3.75 -Date of Last Picture (Recall this 05/07/25 05/14/25 field) -Photo Taken Yes Yes -Epithelialization Small 1-33% Small 1-33% -Tunneling No No -Undermining/Tunneling No No -Circular Undermining No No -Exudate Amt Large Medium -Exudate Type Serosanguineous Serosanguineous -Wound Margin Distinct, Flat & Intact Outline Attached -Granulation Amt Medium (34-66%) Medium (34-66%) -Granulation Quality Red Red -Slough/Fibrin Yes Yes -Necrosis Amt Medium (34-66%) Medium (34-66%) -Necrotic Tissue Type Adherent Slough Adherent Slough -Texture (Shawanda-wound Skin Appearance) Assessed, Assessed, Scarring Scarring -Moisture (Shawanda-wound Skin Appearance) Assessed Assessed -Color (Shawanda-wound Skin Appearance) Assessed Assessed -Temperature (Shawanda-wound Skin No Abnormality No Abnormality Appearance) (Pt Warm) (Pt Warm) -Tenderness on Palpation (Shawanda-wound No No Skin Appearance) -Ulcer Cleansing Soap and Water Soap and Water -Foul Odor after Cleansing No No -Anesthetic Used 5% Lidocaine 5% Lidocaine Gel Gel Lower Limb Edema Present Yes Yes Right Calf (cm) 41 41 Right Ankle (cm) 22.8 22.4 Left Calf (cm) 42.5 42.2 Left Ankle (cm) 23.4 23.6 WC - Nurse 2 - General Ulcer CM Notes Start: 05/07/25 15:23 Freq: Status: Active Protocol: Activity Type Activity Date Activity User E-sign Co-sign Detail Recorded Client Recorded Date Recorded By Document 05/07/25 15:51 DS [id number] 05/07/25 16:01 DS Document 05/14/25 08:48 DS [id number] 05/14/25 08:51 DS Edit Result 05/14/25 08:48 DS (1) [id number] 05/14/25 08:54 DS (1) #2 LLE INF - Post Debridement (cm) - Length => 2.1 - Post Debridement (cm) - Width => 1.5 - Post Debridement (cm) - Depth => 0.1 - Total Square (Post) (cm) => 3.15 - Area of Debridement (cm) - Length => 2.1 - Area of Debridement (cm) - Width => 1.5 - Total Square (Area) (cm) => 3.15 #1 LLE SUP - Post Debridement (cm) - Length => 2.5 - Post Debridement (cm) - Width => 2.0 - Post Debridement (cm) - Depth => 0.1 - Total Square (Post) (cm) => 5.00 - Area of Debridement (cm) - Length => 2.5 - Area of Debridement (cm) - Width => 2.0 - Total Square (Area) (cm) => 5.00 05/07/25 05/14/25 15:51 08:48 Wound Center Nurse 2 #3 RLE CLUSTER -Time 15:53 08:48 -Correct Patient Yes Yes -Correct Side, Site, Position Yes Yes -Correct Procedure Yes -Procedure Performed Yes No -Type of Procedure Debridement -Clinical Debridement Subcutaneous -Tissue Removed Subcutaneous -Post Debridement (cm) - Length 5.7 -Post Debridement (cm) - Width 3.0 -Post Debridement (cm) - Depth 0.1 -Total Square (Post) (cm) 17.10 -Area of Debridement (cm) - Length 5.7 -Area of Debridement (cm) - Width 3.0 -Total Square (Area) (cm) 17.10 -Tunneling No -Undermining/Tunneling No -Circular Undermining No -Wound/Ulcer Outcome Not Healed Healed- Epithelialized -Ulcer Cleansing gauze gauze -Foul Odor after Cleansing No -Bioengineered Tissue No -Bleeding Controlled with Pressure -Treatment Response Procedure Tolerated Well -Debridement - Subq, 1st 20sq cm Yes -Debridement, SubQ, ea addt'l 20sq cm 1 or part thereof #2 LLE INF -Time 15:53 08:49 -Correct Patient Yes Yes -Correct Side, Site, Position Yes Yes -Correct Procedure Yes Yes -Procedure Performed Yes Yes -Type of Procedure Debridement Debridement -Clinical Debridement Subcutaneous Subcutaneous -Tissue Removed Subcutaneous Subcutaneous -Post Debridement (cm) - Length 2.5 2.1 -Post Debridement (cm) - Width 2.0 1.5 -Post Debridement (cm) - Depth 0.1 0.1 -Total Square (Post) (cm) 5.00 3.15 -Area of Debridement (cm) - Length 2.5 2.1 -Area of Debridement (cm) - Width 2.0 1.5 -Total Square (Area) (cm) 5.00 3.15 -Tunneling No No -Undermining/Tunneling No No -Circular Undermining No No -Wound/Ulcer Outcome Not Healed Not Healed -Ulcer Cleansing gauze -Foul Odor after Cleansing No No -Bioengineered Tissue No No -Bleeding Controlled with Pressure Pressure -Treatment Response Procedure Procedure Tolerated Well Tolerated Well -Debridement - Subq, 1st 20sq cm No Yes #1 LLE SUP -Time 15:54 08:49 -Correct Patient Yes Yes -Correct Side, Site, Position Yes Yes -Correct Procedure Yes Yes -Procedure Performed Yes Yes -Type of Procedure Debridement Debridement -Clinical Debridement Subcutaneous Subcutaneous -Tissue Removed Subcutaneous Subcutaneous -Post Debridement (cm) - Length 3.0 2.5 -Post Debridement (cm) - Width 2.0 2.0 -Post Debridement (cm) - Depth 0.1 0.1 -Total Square (Post) (cm) 6.00 5.00 -Area of Debridement (cm) - Length 3.0 2.5 -Area of Debridement (cm) - Width 2.0 2.0 -Total Square (Area) (cm) 6.00 5.00 -Tunneling No No -Undermining/Tunneling No No -Circular Undermining No No -Wound/Ulcer Outcome Not Healed Not Healed -Ulcer Cleansing gauze -Foul Odor after Cleansing No No -Bioengineered Tissue No No -Bleeding Controlled with Pressure Pressure -Treatment Response Procedure Procedure Tolerated Well Tolerated Well -Debridement - Subq, 1st 20sq cm No No Pain Scale: 0-10 Numeric Is Patient Pain Free? Yes Yes WC - Nurse 3 - General Ulcer D/C NN Start: 05/07/25 15:23 Freq: Status: Active Protocol: Activity Type Activity Date Activity User E-sign Co-sign Detail Recorded Client Recorded Date Recorded By Document 05/07/25 16:00 KW [id number] 05/07/25 16:02 KW Document 05/08/25 16:37 DS [id number] 05/08/25 16:38 DS Document 05/14/25 09:13 [facility] [id number] 05/14/25 09:14 [facility] Document 05/17/25 12:55 DS [id number] 05/17/25 13:01 DS 05/07/25 05/08/25 05/14/25 16:00 16:37 09:13 Wound Care Center Nurse 3 #3 RLE CLUSTER -Other Dressing hydrogel -Primary Dressing Covered/Secured with Dry Gauze & Roll Gauze, Secured with Tape #2 LLE INF -Ulcer Cleansing Rinsed/ Irrigated with Saline -Other Dressing hydrogel unna boot -Primary Dressing Covered/Secured with Dry Gauze & Roll Gauze, Secured with Tape #1 LLE SUP -Ulcer Cleansing Rinsed/ Irrigated with Saline -Other Dressing hydrogel unna boot -Primary Dressing Covered/Secured with Dry Gauze & Roll Gauze, Secured with Tape BLE -Multi-Layered Wrap Application Unna Boot - Bilateral -Tubular Bandage Single Layer -Size of Tubigrip Used Size E -Size E ($) 2 -Unna- Bilat (Qty applied) 1 LLE -Multi-Layered Wrap Application Multi-Layer Comp - Left ($) -Unna- Left (Qty applied) -Multi-Layer Compression Left (Qty 1 applied) RLE -Multi-Layered Wrap Application Unna Boot - Right -Unna- Right (Qty applied) 1 -Multi-Layer Compression Right (Qty applied) Treatment Response Procedure Tolerated Well Pain Scale: 0-10 Numeric Is Patient Pain Free? Yes Yes Yes WC - Visit Discharge Discharge Condition Stable Stable Stable Ambulatory Status Ambulatory Ambulatory Ambulatory Transportation Private Auto Private Auto Medication Reconcilliation completed & No provided to patient/care provider Clinical Summary of Care Provided Yes 05/17/25 12:55 Wound Care Center Nurse 3 #3 RLE CLUSTER -Other Dressing -Primary Dressing Covered/Secured with #2 LLE INF -Ulcer Cleansing Soap and Water -Other Dressing -Primary Dressing Covered/Secured with #1 LLE SUP -Ulcer Cleansing Soap and Water -Other Dressing -Primary Dressing Covered/Secured with BLE -Multi-Layered Wrap Application -Tubular Bandage -Size of Tubigrip Used -Size E ($) -Unna- Bilat (Qty applied) LLE -Multi-Layered Wrap Application Unna Boot - Left -Unna- Left (Qty applied) 1 -Multi-Layer Compression Left (Qty applied) RLE -Multi-Layered Wrap Application Multi-Layer Comp - Right ($ ) -Unna- Right (Qty applied) -Multi-Layer Compression Right (Qty 1 applied) Treatment Response Pain Scale: 0-10 Numeric Is Patient Pain Free? Yes WC - Visit Discharge Discharge Condition Stable Ambulatory Status Ambulatory Transportation Private Auto Medication Reconcilliation completed & provided to patient/care provider Clinical Summary of Care Provided Charges/Coding Procedures Integumentary [id number]: [id number] Elida subq tissue 20 sq cm/< Assessment/Plan Assessment/Plan (1) Venous stasis ulcer: CODE(S): I83.009 - Varicose veins of unspecified lower extremity with ulcer of unspecified site; L97.909 - Non-pressure chronic ulcer of unspecified part of unspecified lower leg with unspecified severity QUALIFIERS: Venous stasis ulcer site: calf Varicose vein presence: without varicose veins Laterality: left Non-pressure ulcer stage: with fat layer exposed Qualified Code(s): I87.2 - Venous insufficiency (chronic) (peripheral); L97.222 - Non-pressure chronic ulcer of left calf with fat layer exposed (2) Venous stasis ulcer: CODE(S): I83.009 - Varicose veins of unspecified lower extremity with ulcer of unspecified site; L97.909 - Non-pressure chronic ulcer of unspecified part of unspecified lower leg with unspecified severity QUALIFIERS: Venous stasis ulcer site: calf Varicose vein presence: without varicose veins Laterality: right Non-pressure ulcer stage: with fat layer exposed Qualified Code(s): I87.2 - Venous insufficiency (chronic) (peripheral); L97.212 - Non-pressure chronic ulcer of right calf with fat layer exposed (3) Postphlebitic syndrome with both ulcer and inflammation: CODE(S): I87.039 - Postthrombotic syndrome with ulcer and inflammation of unspecified lower extremity (4) Venous stasis dermatitis of both lower extremities: CODE(S): I87.2 - Venous insufficiency (chronic) (peripheral) (5) Chronic venous insufficiency: CODE(S): I87.2 - Venous insufficiency (chronic) (peripheral) (6) Right leg swelling: CODE(S): M79.89 - Other specified soft tissue disorders (7) Left leg swelling: CODE(S): M79.89 - Other specified soft tissue disorders (8) Hypertriglyceridemia: CODE(S): E78.1 - Pure hyperglyceridemia (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 QUALIFIERS: Villalba's esophagus type: without dysplasia Qualified Code(s): K22.70 - Villalba's esophagus without dysplasia (10) NAFLD (nonalcoholic fatty liver disease): CODE(S): K76.0 - Fatty (change of) liver, not elsewhere classified (11) Thrombocytopenia: CODE(S): D69.6 - Thrombocytopenia, unspecified (12) Liver disease: CODE(S): K76.9 - Liver disease, unspecified (13) History of pulmonary embolism: CODE(S): Z86.711 - Personal history of pulmonary embolism (14) HTN (hypertension): CODE(S): I10 - Essential (primary) hypertension (15) Testicular cancer: CODE(S): C62.90 - Malignant neoplasm of unspecified testis, unspecified whether descended or undescended (16) Hypogonadism: (17) Obstructive sleep apnea: CODE(S): G47.33 - Obstructive sleep apnea (adult) (pediatric) (18) Hepatic fibrosis: CODE(S): K74.00 - Hepatic fibrosis, unspecified (19) Diabetes mellitus type 2, insulin dependent: CODE(S): E11.9 - Type 2 diabetes mellitus without complications; Z79.4 - MCFP (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 The ulcerations appear to be related to chronic dependency and chronic venous insufficiency. He also appears to have symptoms consistent with postphlebitic syndrome with inflammation and ulceration. He has a history of pulmonary embolism in the past, for which an inferior vena cava filter was previously placed. Though not certain, it is presumed that he also has a history of deep vein thrombosis of the lower extremities. A lengthy discussion has been undertaken with the patient regarding the appropriate conservative means in the management of his chronic venous disease. Leg elevation has been advised. The patient has been instructed to elevate his lower extremities to heart level, or higher, as much as possible. Leg elevation is to be implemented during both daytime and nighttime hours. The patient has been encouraged to sleep on a flat mattress at night. The patient has been advised to refrain from prolonged, idle sitting. Activity has been encouraged. The benefit of implementation of calf muscle pumps has been described. We are to continue compression to the left lower extremity by means of [place]na compression wraps, which will be changed twice weekly. Because the ulcerations on the right lower extremity are healed, we are to use a 3M 2 layer compression wrap for compression purposes, which will also be changed twice weekly. It appears that the patient has benefitted from the compression, as well as the zinc oxide topically for the ulcerations and venous stasis changes. Circumference measurements of the patient's lower extremities have been obtained, and have been provided to the patient with a prescription for graduated compression stockings, and it is anticipated that he will obtain the stockings at a local medical supply store. The patient has been advised to optimize his nutritional intake, as well as his glycemic control. The patient's recent laboratory results from April 23, 2025, have been reviewed, and are as follows: White blood count 7.7, hemoglobin 11.5, hematocrit 36.8, platelets 97,000, sodium 140, potassium 3.8, chloride 101, BUN 30, creatinine 1.31, calcium 9.9, total bilirubin 0.93, AST 36, ALT 27, alkaline phosphatase 95, total protein 7.1, albumin 4.0. The patient indicates that Dr. Durham has ordered pneumatic mechanical compression pumps, which are to be received within the next several days. The patient has been requested to bring these to his next [facility] appointment. The patient is to return in 1 week for reevaluation. Total time: 24 minutes
[2025-05-21 15:13] VITALS: BP 147/76; PULSE 86; RESP 18; TEMP 36.6
--- NOTE | 2025-05-22 13:49 | WC ---
PHOTO 05/21/25 LEFT SUP LE/LEFT INF LE
--- NOTE | 2025-05-25 15:52 | HP.PCM_ITS ---
History of Present Illness Date of Service: 05/21/25 Chief Complaint: Chronic venous insufficiency with bilateral lower extremity venous stasis ulcerations History of Wound: This is a 59-year-old male who presented with severe venous stasis dermatitis in his lower extremities, as well as bilateral lower extremity venous stasis ulcerations. The patient had been treated by his primary care physician for suspected lower extremity cellulitis, with recent prescriptions for oral antibiotics. At the time of intake, the patient was taking Keflex and doxycycline orally. The patient experiences swelling and edema in both lower extremities. His ulcerations began as blisters several months prior to pre sentation, which subsequently developed into open ulcerations. A wound culture of the left leg was performed on April 26, 2025, which revealed very rare coag negative staph. The patient is obese, with a BMI of 45.6. 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 He suffers from chronic swelling and edema in his lower extremities. He sleeps in a chair at night. He has a history of pulmonary embolism, and has previously undergone placement of an inferior vena cava filter. According the patient, the filter was subsequently removed. The patient suffers from multiple other pre-existing medical conditions, which are listed herein. He has a history of testicular cancer, for which he has undergone bilateral orchiectomy. [facility] Medical History Chronic kidney disease, stage 3b Diabetes mellitus type 2, insulin dependent Hepatic fibrosis Obstructive sleep apnea Hypogonadism Postphlebitic syndrome with both ulcer and inflammation Venous stasis ulcer Left leg swelling Right leg swelling Venous stasis dermatitis of both lower extremities Venous stasis ulcer Chronic venous insufficiency History of pulmonary embolism Wears glasses Insulin dependent diabetes mellitus Back pain Dietary restriction History of GI bleed Former smoker CPAP (continuous positive airway pressure) dependence Sleep apnea History of edema History of echocardiogram History of stress test HLD (hyperlipidemia) Nausea and vomiting Hypogonadism in male Diarrhea Allergic rhinitis Blood in stool Presence of inferior vena cava filter Testicular cancer Gastric ulcer HTN (hypertension) Pulmonary embolism Diabetes Lactic acidosis Syncope Home Medications ?Medication ?Instructions ?Recorded ?Last Taken ?Type metformin 1,000 mg tablet 1 tab PO BIDCM DM 03/24/18 0 12/24/20 History albuterol sulfate 90 mcg/actuation 90 mcg inhalation Q 4H PRN PRN 04/09/18 Unknown History aerosol inhaler wheezing/SOB testosterone 2 pump topical DAILY testicu lar ca 04/09/18 04/09/18 History insulin aspar prot-insulin aspart 30 unit subcut BID 0 02/22/23 Unknown History 100 unit/mL (70-30) subcutaneous pen (Novolog Mix 70-30FlexPen U-100) insulin glargine U-300 conc 300 240 unit subcut DAILY 02/22/23 Unknown History unit/mL (3 mL) subcutaneous pen (Toujeo Max U-300 SoloStar) losartan 100 mg tablet 100 mg PO DAILY 02/22/23 History rosuvastatin 40 mg tablet 40 mg PO DAILY 02/22/23 Unkn own History pantoprazole 40 mg tablet,delayed 40 mg PO DAILY 1 tue th #30 tabs 10/26/23 Unknown Rx release furosemide 40 mg tablet 40 mg PO DAILY 10/27/23 Unkn own History ipratropium bromide 42 mcg (0.06 2 spray intranasal TI D 10/27/23 Unknown History %) nasal spray cholecalciferol (vitamin D3) 1,250 1,250 mcg PO QWEEK 1 month #4 caps 07/17/24 Unknown Rx mcg (50,000 unit) capsule tirzepatide 2.5 mg/0.5 mL 2.5 mg subcut QWEEK 10/18/24 Unknown History subcutaneous pen injector (Edwin) fenofibrate nanocrystallized 48 mg 48 mg PO QHS 1 annalise h #30 tabs 10/19/24 Unknown Rx tablet icosapent ethyl 1 gram capsule 2 g (2 x 1 gram) PO BID 1 month 10/19/24 Unknown Rx #120 caps magnesium citrate 300 ml PO X1 #1 BOTTLE 12/14 Unknown Rx Allergy/AdvReac Type Severity Reaction Status Date / Time No Known Allergies Allergy Verified 04/30/25 14:06 Family History Mother Diabetes Sister Diabetes Brother Diabetes Father Cancer lung Surgical History Hx of appendectomy S/P insertion of IVC (inferior vena caval) filter History of back surgery History of orchiectomy, bilateral Social History Smoking Status: Former smoker Physical Exam Const alert, oriented x3, no apparent distress and well nourished Constitutional Narrative: The patient is morbidly obese. His BMI is 45.6 General Appearance: cooperative, comfortable and well developed Orientation / Consciousness: awake, oriented to person, oriented to place and oriented to time Exam Limitations: no limitations HEENT normocephalic and head/scalp atraumatic Head and Scalp: normal to inspection, normocephalic and atraumatic Face and Sinus: normal facial exam Nose: external nose normal External Ear: external ears normal Teeth and Gingiva: poor dentition Eyes EOMs intact bilaterally General Eye: normal appearance of both eyes Resp normal respiratory effort, normal air movement, no retractions and no use of accessory muscles Effort and Inspection: able to speak in complete sentences Extremity General Extremity: Negative for clubbing or cyanosis Skin Wound Narrative: The swelling and edema in the patient's lower extremities is much improved, and has responded to conservative treatment measures and compression. The venous stasis dermatitis in the gaiter areas is also improved. A clustered ulceration in the right lower extremity remains healed and epithelialized. Two ulceratio ns are noted on the anterolateral aspect of the distal left lower extremity, which demonstrate a small amount of bioburden, as well as necrotic and nonviable tissue, though increasing areas of pink, healthy granulation tissue. Dimensions of the ulcerations are noted elsewhere. The ulcerations appear to be decreasing in size. The ulcerations are full-thickness in nature, extending through all la yers of the dermis and into the subcutaneous tissues. Ulcer margins are well beveled. Neuro oriented x3, CN's II-XII intact bilaterally, moves all extremities, no focal motor deficits and no sensory deficits noted Sensorium / Orientation: awake, alert, oriented to person, oriented to place and oriented to time Speech: speech normal Psych Appearance: grossly normal and appropriate Attitude: calm Activity / Motor Behavior: appropriate eye contact Speech: normal speech Mood & Affect: euthymic mood Thought Process: normal thought process Thought Content: normal thought content Attention / Concentration: attention grossly intact Debridement Note Debridement Note Wound debrided: Left lower extremity ulcerations x 2 Laterality: Left Type of Debridement: Excisional debridement Anesthesia Used: 5% Lidocaine Gel and Cetacaine Depth: Down to and including healthy tissue and in the subcutaneous layer Percentage of wound debrided: 100 Instrument Used: 5mm curette Tissue Removed: Bioburden and devitalized tissue Severity: Fat Layer Exposed Amount of bleeding with debridement: Mild Bleeding Controlled with: Compression and gauze Patient tolerated procedure: Patient tolerated procedure well Post-Debridement Measurements and Additional Note: Post-Debridement Measurements/Treatment - Nurse 1 - General Ulcer Assessment Start: 05/07/25 15:23 Freq: Status: Active Protocol: DEEPIKA.SHAHLA Activity Type Activity Date Activity User E-sign Co-sign Detail Recorded Client Recorded Date Recorded By Document 05/07/25 15:26 BMF [id number] 05/07/25 15:42 BMF Document 05/08/25 16:35 DS [id number] 05/08/25 16:37 DS Document 05/14/25 08:12 BMF [id number] 05/14/25 08:27 BMF Document 05/17/25 12:54 DS [id number] 05/17/25 12:54 DS Document 05/21/25 15:13 KW [id number] 05/21/25 15:28 KW 05/07/25 05/08/25 05/14/25 15:26 16:35 08:12 - Today's Visit Information Type of service Follow-up Visit Follow-up Visit Follow-up Visit (Physician/SUMMER INTERN (Physician/SUMMER INTERN (Physician/SUMMER INTERN ) ) ) Arrival Mode Ambulatory Ambulatory Ambulatory Transfer Assistance None None Patient Identification Verified (Name & Yes Yes Yes ) Patient Requires Transmission-Based No No Precautions Vital Signs Temperature (97.8 F-99.1 F) 97.5 F L 97.7 F L 96.9 F L Temperature Source Temporal Temporal Temporal Pulse Rate (60-100) 86 86 91 Pulse Location Monitor Monitor Monitor Respiratory Rate (12-18) 20 H 18 18 Respiratory rate source Observation Observation Observation Oxygen Delivery Method Room Air Room Air Room Air Blood Pressure (90/60-120/80) 158/92 H 152/77 H 157/93 H Blood Pressure Mean 114 102 114 Source Monitor Monitor Monitor Position Sitting Sitting Sitting Blood Pressure Location Right Arm Left Arm Right Arm History Since Last Visit- (Skip if this is Patient's initial visit) Have you changed medications since your No No last visit? Any new allergies or adverse reactions No No Had a fall/change in ADL's that may No No increase risk of falls Signs or symptoms of abuse and/or No No neglect since last visit Have you been in the hospital since your No No last visit? Has dressing in place as prescribed Yes Yes Has compression in place as prescribed Yes Yes Has offloadiing in place as prescribed N/A N/A Experienced any changes in pain level or No No management Left Footwear Diabetic Shoe Diabetic Shoe Right Footwear Diabetic Shoe Diabetic Shoe Pain Scale: 0-10 Numeric Is Patient Pain Free? Yes Yes Yes 05/17/25 05/21/25 12:54 15:13 - Today's Visit Information Type of service Nurse-only Follow-up Visit Visit (Physician/SUMMER INTERN ) Arrival Mode Ambulatory Ambulatory Transfer Assistance Patient Identification Verified (Name & Yes Yes ) Patient Requires Transmission-Based Precautions Vital Signs Temperature (97.8 F-99.1 F) 97.2 F L 97.8 F Temperature Source Temporal Temporal Pulse Rate (60-100) 87 86 Pulse Location Monitor Monitor Respiratory Rate (12-18) 18 18 Respiratory rate source Observation Monitor Oxygen Delivery Method Room Air Room Air Blood Pressure (90/60-120/80) 151/76 H 147/76 H Blood Pressure Mean 101 99 Source Monitor Monitor Position Sitting Sitting Blood Pressure Location Right Arm Left Arm History Since Last Visit- (Skip if this is Patient's initial visit) Have you changed medications since your No No last visit? Any new allergies or adverse reactions No No Had a fall/change in ADL's that may No No increase risk of falls Signs or symptoms of abuse and/or No No neglect since last visit Have you been in the hospital since your No No last visit? Has dressing in place as prescribed Yes Yes Has compression in place as prescribed Yes Yes Has offloadiing in place as prescribed N/A N/A Experienced any changes in pain level or No No management Left Footwear Regular Shoe Regular Shoe Right Footwear Regular Shoe Regular Shoe Pain Scale: 0-10 Numeric Is Patient Pain Free? Yes Yes - Nurse 1 - General Ulcer Measurement Start: 05/07/25 15:23 Freq: Status: Active Protocol: Activity Type Activity Date Activity User E-sign Co-sign Detail Recorded Client Recorded Date Recorded By Document 05/07/25 15:26 [facility] [id number] 05/07/25 15:42 [facility] Document 05/14/25 08:12 [facility] [id number] 05/14/25 08:27 BMF Document 05/21/25 15:13 KW [id number] 05/21/25 15:28 KW 05/07/25 05/14/25 05/21/25 15:26 08:12 15:13 Wound Center Nurse 1 #3 RLE CLUSTER -Combined with other wound No No -Current Size (cm) - Length 1 0.1 -Current Size (cm) - Width 0.6 0.1 -Current Size (cm) - Depth 0.1 0.1 -Total Square Cm 0.6 0.01 -Date of Last Picture (Recall this 05/07/25 05/14/25 field) -Photo Taken Yes Yes -Epithelialization Small 1-33% Large 67-100% -Tunneling No -Undermining/Tunneling No -Circular Undermining No -Exudate Amt Medium -Exudate Type Serosanguineous -Wound Margin Distinct, Outline Attached -Granulation Amt Large (67-100%) -Granulation Quality Red -Slough/Fibrin Yes -Necrosis Amt Small (1-33%) -Necrotic Tissue Type Adherent Slough -Texture (Shawanda-wound Skin Appearance) Assessed, Scarring Scarring -Moisture (Shawanda-wound Skin Appearance) Assessed -Color (Shawanda-wound Skin Appearance) Assessed -Temperature (Shawanda-wound Skin No Abnormality Appearance) (Pt Warm) -Tenderness on Palpation (Shawanda-wound No Skin Appearance) -Ulcer Cleansing Soap and Water -Foul Odor after Cleansing No -Anesthetic Used 5% Lidocaine Gel #2 LLE INF -Combined with other wound No No -Current Size (cm) - Length 2.4 2.2 1.8 -Current Size (cm) - Width 1.7 1.4 1.2 -Current Size (cm) - Depth 0.2 0.1 0.1 -Total Square Cm 4.08 3.08 2.16 -Date of Last Picture (Recall this 05/07/25 05/14/25 05/21/25 field) -Photo Taken Yes Yes -Epithelialization Small 1-33% Small 1-33% -Tunneling No No -Undermining/Tunneling No No -Circular Undermining No No -Exudate Amt Large Medium Medium -Exudate Type Serosanguineous Serosanguineous Serosanguineous -Wound Margin Distinct, Flat & Intact Distinct, Outline Outline Attached Attached -Granulation Amt Medium (34-66%) Medium (34-66%) Large (67-100%) -Granulation Quality Red Red Red -Slough/Fibrin Yes Yes -Necrosis Amt Medium (34-66%) Medium (34-66%) -Necrotic Tissue Type Adherent Slough Adherent Slough -Texture (Shawanda-wound Skin Appearance) Assessed, Assessed, Assessed Scarring Scarring -Moisture (Shawanda-wound Skin Appearance) Assessed Assessed Assessed, Maceration -Color (Shawanda-wound Skin Appearance) Assessed Assessed Assessed, Hemosiderin Staining -Temperature (Shawanda-wound Skin No Abnormality No Abnormality No Abnormality Appearance) (Pt Warm) (Pt Warm) (Pt Warm) -Tenderness on Palpation (Shawanda-wound No No No Skin Appearance) -Ulcer Cleansing Soap and Water Soap and Water Soap and Water -Foul Odor after Cleansing No No No -Anesthetic Used 5% Lidocaine 5% Lidocaine 5% Lidocaine Gel Gel Gel #1 LLE SUP -Combined with other wound No No -Current Size (cm) - Length 2.8 2.5 2 -Current Size (cm) - Width 1.6 1.5 0.7 -Current Size (cm) - Depth 0.1 0.1 0.1 -Total Square Cm 4.48 3.75 1.4 -Date of Last Picture (Recall this 05/07/25 05/14/25 05/21/25 field) -Photo Taken Yes Yes -Epithelialization Small 1-33% Small 1-33% -Tunneling No No -Undermining/Tunneling No No -Circular Undermining No No -Exudate Amt Large Medium Medium -Exudate Type Serosanguineous Serosanguineous Serosanguineous -Wound Margin Distinct, Flat & Intact Distinct, Outline Outline Attached Attached -Granulation Amt Medium (34-66%) Medium (34-66%) Large (67-100%) -Granulation Quality Red Red -Slough/Fibrin Yes Yes -Necrosis Amt Medium (34-66%) Medium (34-66%) Small (1-33%) -Necrotic Tissue Type Adherent Slough Adherent Slough Adherent Slough -Texture (Shawanda-wound Skin Appearance) Assessed, Assessed, Assessed Scarring Scarring -Moisture (Shawanda-wound Skin Appearance) Assessed Assessed Assessed -Color (Shawanda-wound Skin Appearance) Assessed Assessed Assessed, Hemosiderin Staining -Temperature (Shawanda-wound Skin No Abnormality No Abnormality No Abnormality Appearance) (Pt Warm) (Pt Warm) (Pt Warm) -Tenderness on Palpation (Shawanda-wound No No No Skin Appearance) -Ulcer Cleansing Soap and Water Soap and Water Soap and Water -Foul Odor after Cleansing No No No -Anesthetic Used 5% Lidocaine 5% Lidocaine 5% Lidocaine Gel Gel Gel Lower Limb Edema Present Yes Yes Right Calf (cm) 41 41 39 Right Ankle (cm) 22.8 22.4 21 Left Calf (cm) 42.5 42.2 41 Left Ankle (cm) 23.4 23.6 21.5 WC - Nurse 2 - General Ulcer CM Notes Start: 05/07/25 15:23 Freq: Status: Active Protocol: Activity Type Activity Date Activity User E-sign Co-sign Detail Recorded Client Recorded Date Recorded By Document 05/07/25 15:51 DS [id number] 05/07/25 16:01 DS Document 05/14/25 08:48 DS [id number] 05/14/25 08:51 DS Edit Result 05/14/25 08:48 DS (1) [id number] 05/14/25 08:54 DS Document 05/21/25 15:34 DS [id number] 05/21/25 15:38 DS (1) #2 LLE INF - Post Debridement (cm) - Length => 2.1 - Post Debridement (cm) - Width => 1.5 - Post Debridement (cm) - Depth => 0.1 - Total Square (Post) (cm) => 3.15 - Area of Debridement (cm) - Length => 2.1 - Area of Debridement (cm) - Width => 1.5 - Total Square (Area) (cm) => 3.15 #1 LLE SUP - Post Debridement (cm) - Length => 2.5 - Post Debridement (cm) - Width => 2.0 - Post Debridement (cm) - Depth => 0.1 - Total Square (Post) (cm) => 5.00 - Area of Debridement (cm) - Length => 2.5 - Area of Debridement (cm) - Width => 2.0 - Total Square (Area) (cm) => 5.00 05/07/25 05/14/25 05/21/25 15:51 08:48 15:34 Wound Center Nurse 2 #3 RLE CLUSTER -Time 15:53 08:48 -Correct Patient Yes Yes -Correct Side, Site, Position Yes Yes -Correct Procedure Yes -Procedure Performed Yes No -Type of Procedure Debridement -Clinical Debridement Subcutaneous -Tissue Removed Subcutaneous -Post Debridement (cm) - Length 5.7 -Post Debridement (cm) - Width 3.0 -Post Debridement (cm) - Depth 0.1 -Total Square (Post) (cm) 17.10 -Area of Debridement (cm) - Length 5.7 -Area of Debridement (cm) - Width 3.0 -Total Square (Area) (cm) 17.10 -Tunneling No -Undermining/Tunneling No -Circular Undermining No -Wound/Ulcer Outcome Not Healed Healed- Epithelialized -Ulcer Cleansing gauze gauze -Foul Odor after Cleansing No -Bioengineered Tissue No -Bleeding Controlled with Pressure -Treatment Response Procedure Tolerated Well -Debridement - Subq, 1st 20sq cm Yes -Debridement, SubQ, ea addt'l 20sq cm 1 or part thereof #2 LLE INF -Time 08:49 15:34 -Correct Patient Yes Yes Yes -Correct Side, Site, Position Yes Yes Yes -Correct Procedure Yes Yes Yes -Procedure Performed Yes Yes Yes -Type of Procedure Debridement Debridement Debridement -Clinical Debridement Subcutaneous Subcutaneous Subcutaneous -Tissue Removed Subcutaneous Subcutaneous Subcutaneous -Post Debridement (cm) - Length 2.5 2.1 1.7 -Post Debridement (cm) - Width 2.0 1.5 1.2 -Post Debridement (cm) - Depth 0.1 0.1 0.1 -Total Square (Post) (cm) 5.00 3.15 2.04 -Area of Debridement (cm) - Length 2.5 2.1 1.7 -Area of Debridement (cm) - Width 2.0 1.5 1.2 -Total Square (Area) (cm) 5.00 3.15 2.04 -Tunneling No No No -Undermining/Tunneling No No No -Circular Undermining No No No -Wound/Ulcer Outcome Not Healed Not Healed Not Healed -Ulcer Cleansing gauze GAUZE -Foul Odor after Cleansing No No No -Bioengineered Tissue No No No -Bleeding Controlled with Pressure Pressure Pressure -Treatment Response Procedure Procedure Procedure Tolerated Well Tolerated Well Tolerated Well -Debridement - Subq, 1st 20sq cm No Yes Yes #1 LLE SUP -Time 15:54 08:49 15:34 -Correct Patient Yes Yes Yes -Correct Side, Site, Position Yes Yes Yes -Correct Procedure Yes Yes Yes -Procedure Performed Yes Yes Yes -Type of Procedure Debridement Debridement Debridement -Clinical Debridement Subcutaneous Subcutaneous Subcutaneous -Tissue Removed Subcutaneous Subcutaneous Subcutaneous -Post Debridement (cm) - Length 3.0 2.5 1.9 -Post Debridement (cm) - Width 2.0 2.0 0.8 -Post Debridement (cm) - Depth 0.1 0.1 0.1 -Total Square (Post) (cm) 6.00 5.00 1.52 -Area of Debridement (cm) - Length 3.0 2.5 1.9 -Area of Debridement (cm) - Width 2.0 2.0 0.8 -Total Square (Area) (cm) 6.00 5.00 1.52 -Tunneling No No No -Undermining/Tunneling No No No -Circular Undermining No No No -Wound/Ulcer Outcome Not Healed Not Healed Not Healed -Ulcer Cleansing gauze GAUZE -Foul Odor after Cleansing No No No -Bioengineered Tissue No No No -Bleeding Controlled with Pressure Pressure Pressure -Treatment Response Procedure Procedure Procedure Tolerated Well Tolerated Well Tolerated Well -Offloading No -Debridement - Subq, 1st 20sq cm No No No Pain Scale: 0-10 Numeric Is Patient Pain Free? Yes Yes Yes - Nurse 3 - General Ulcer D/C NN Start: 05/07/25 15:23 Freq: Status: Active Protocol: Activity Type Activity Date Activity User E-sign Co-sign Detail Recorded Client Recorded Date Recorded By Document 05/07/25 16:00 KW [id number] 05/07/25 16:02 KW Document 05/08/25 16:37 DS [id number] 05/08/25 16:38 DS Document 05/14/25 09:13 BM [id number] 05/14/25 09:14 BM Document 05/17/25 12:55 DS [id number] 05/17/25 13:01 DS Document 05/21/25 15:43 KW [id number] 05/21/25 15:45 KW 05/07/25 05/08/25 05/14/25 16:00 16:37 09:13 Wound Care Center Nurse 3 #3 RLE CLUSTER -Other Dressing hydrogel -Primary Dressing Covered/Secured with Dry Gauze & Roll Gauze, Secured with Tape #2 LLE INF -Ulcer Cleansing Rinsed/ Irrigated with Saline -Primary Dressing Applied -Other Dressing hydrogel unna boot -Primary Dressing Covered/Secured with Dry Gauze & Roll Gauze, Secured with Tape -Aquacel AG 4x4 #1 LLE SUP -Ulcer Cleansing Rinsed/ Irrigated with Saline -Other Dressing hydrogel unna boot -Primary Dressing Covered/Secured with Dry Gauze & Roll Gauze, Secured with Tape BLE -Multi-Layered Wrap Application Unna Boot - Bilateral -Tubular Bandage Single Layer -Size of Tubigrip Used Size E -Size E ($) 2 -Unna- Bilat (Qty applied) 1 LLE -Multi-Layered Wrap Application Multi-Layer Comp - Left ($) -Unna- Left (Qty applied) -Multi-Layer Compression Left (Qty 1 applied) RLE -Multi-Layered Wrap Application Unna Boot - Right -Other -Unna- Right (Qty applied) 1 -Multi-Layer Compression Right (Qty applied) Treatment Response Procedure Tolerated Well Pain Scale: 0-10 Numeric Is Patient Pain Free? Yes Yes Yes WC - Visit Discharge Discharge Condition Stable Stable Stable Ambulatory Status Ambulatory Ambulatory Ambulatory Transportation Private Auto Private Auto Medication Reconcilliation completed & No provided to patient/care provider Clinical Summary of Care Provided Yes 05/17/25 05/21/25 12:55 15:43 Wound Care Center Nurse 3 #3 RLE CLUSTER -Other Dressing -Primary Dressing Covered/Secured with #2 LLE INF -Ulcer Cleansing Soap and Water -Primary Dressing Applied Aquacel AG 4x4 -Other Dressing -Primary Dressing Covered/Secured with Dry Gauze -Aquacel AG 4x4 1 #1 LLE SUP -Ulcer Cleansing Soap and Water -Other Dressing AQUACEL AG MOISTENED -Primary Dressing Covered/Secured with Dry Gauze BLE -Multi-Layered Wrap Application -Tubular Bandage -Size of Tubigrip Used -Size E ($) -Unna- Bilat (Qty applied) LLE -Multi-Layered Wrap Application Unna Boot - Multi-Layer Left Comp - Left ($) -Unna- Left (Qty applied) 1 -Multi-Layer Compression Left (Qty 1 applied) RLE -Multi-Layered Wrap Application Multi-Layer Comp - Right ($ ) -Other PT OWN COMPRESSION STOCKING -Unna- Right (Qty applied) -Multi-Layer Compression Right (Qty 1 applied) Treatment Response Pain Scale: 0-10 Numeric Is Patient Pain Free? Yes Yes WC - Visit Discharge Discharge Condition Stable Stable Ambulatory Status Ambulatory Ambulatory Transportation Private Auto Private Auto Medication Reconcilliation completed & No provided to patient/care provider Clinical Summary of Care Provided Yes Charges/Coding Procedures Integumentary [id number]: [id number] Elida subq tissue 20 sq cm/< Assessment/Plan Assessment/Plan (1) Venous stasis ulcer: CODE(S): I83.009 - Varicose veins of unspecified lower extremity with ulcer of unspecified site; L97.909 - Non-pressure chronic ulcer of unspecified part of unspecified lower leg with unspecified severity QUALIFIERS: Venous stasis ulcer site: calf Varicose vein presence: without varicose veins Laterality: left Non-pressure ulcer stage: with fat layer exposed Qualified Code(s): I87.2 - Venous insufficiency (chronic) (peripheral); L97.222 - Non-pressure chronic ulcer of left calf with fat layer exposed (2) Venous stasis ulcer: CODE(S): I83.009 - Varicose veins of unspecified lower extremity with ulcer of unspecified site; L97.909 - Non-pressure chronic ulcer of unspecified part of unspecified lower leg with unspecified severity QUALIFIERS: Venous stasis ulcer site: calf Varicose vein presence: without varicose veins Laterality: right Non-pressure ulcer stage: with fat layer exposed Qualified Code(s): I87.2 - Venous insufficiency (chronic) (peripheral); L97.212 - Non-pressure chronic ulcer of right calf with fat layer exposed (3) Postphlebitic syndrome with both ulcer and inflammation: CODE(S): I87.039 - Postthrombotic syndrome with ulcer and inflammation of unspecified lower extremity (4) Venous stasis dermatitis of both lower extremities: CODE(S): I87.2 - Venous insufficiency (chronic) (peripheral) (5) Chronic venous insufficiency: CODE(S): I87.2 - Venous insufficiency (chronic) (peripheral) (6) Right leg swelling: CODE(S): M79.89 - Other specified soft tissue disorders (7) Left leg swelling: CODE(S): M79.89 - Other specified soft tissue disorders (8) Hypertriglyceridemia: CODE(S): E78.1 - Pure hyperglyceridemia (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 QUALIFIERS: Villalba's esophagus type: without dysplasia Qualified Code(s): K22.70 - Villalba's esophagus without dysplasia (10) NAFLD (nonalcoholic fatty liver disease): CODE(S): K76.0 - Fatty (change of) liver, not elsewhere classified (11) Thrombocytopenia: CODE(S): D69.6 - Thrombocytopenia, unspecified (12) Liver disease: CODE(S): K76.9 - Liver disease, unspecified (13) History of pulmonary embolism: CODE(S): Z86.711 - Personal history of pulmonary embolism (14) HTN (hypertension): CODE(S): I10 - Essential (primary) hypertension (15) Testicular cancer: CODE(S): C62.90 - Malignant neoplasm of unspecified testis, unspecified whether descended or undescended (16) Hypogonadism: (17) Obstructive sleep apnea: CODE(S): G47.33 - Obstructive sleep apnea (adult) (pediatric) (18) Hepatic fibrosis: CODE(S): K74.00 - Hepatic fibrosis, unspecified (19) Diabetes mellitus type 2, insulin dependent: CODE(S): E11.9 - Type 2 diabetes mellitus without complications; Z79.4 - roasterman (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 The ulcerations appear to be related to chronic dependency and chronic venous insufficiency. He also appears to have symptoms consistent with postphlebitic syndrome with inflammation and ulceration. He has a history of pulmonary embolism in the past, for which an inferior vena cava filter was previously placed. Though not certain, it is presumed that he also has a history of deep vein thrombosis of the lower extremities. A lengthy discussion has been undertaken with the patient regarding the appropriate conservative means in the management of his chronic venous disease. Leg elevation has been advised. The patient has been instructed to elevate his lower extremities to heart level, or higher, as much as possible. Leg elevation is to be implemented during both daytime and nighttime hours. The patient has been encouraged to sleep on a flat mattress at night. The patient has been advised to refrain from prolonged, idle sitting. Activity has been encouraged. The benefit of implementing the calf muscle pumps has been described. We are to utilize moistened Aquacel Ag topically to the ulcerations on the left lower extremity, and a 3M 2 layer compression wrap, which will be changed twice weekly. The patient has obtained graduated compression stockings of 20 to 30 mmHg compression, which are to be donned on a daily basis on the right lower extremity. The patient has been advised to optimize his nutritional intake, as well as his glycemic control. The patient's recent laboratory results from April 23, 2025, have been reviewed, and are as follows: White blood count 7.7, hemoglobin 11.5, hematocrit 36.8, platelets 97,000, sodium 140, potassium 3.8, chloride 101, BUN 30, creatinine 1.31, calcium 9.9, total bilirubin 0.93, AST 36, ALT 27, alkaline phosphatase 95, total protein 7.1, albumin 4.0. The patient indicates that Dr. Durham has ordered pneumatic mechanical compression pumps, which are to be received within the next several days. The patient has been requested to bring these to his next [facility] appointment. The patient is to return in 1 week for reevaluation. Total time: 25 minutes
[2025-05-28 15:22] VITALS: BP 157/75; PULSE 89; RESP 18; TEMP 36
--- NOTE | 2025-05-29 10:12 | WC ---
PHOTO - LLE SUP/INF 05-28-25
--- NOTE | 2025-05-30 11:55 | PCM.WC.HP ---
History of Present Illness Date of Service: 05/28/25 Chief Complaint: Chronic venous insufficiency with bilateral lower extremity venous stasis ulcerations History of Wound: This is a 59-year-old male who presented with severe venous stasis dermatitis in his lower extremities, as well as bilateral lower extremity venous stasis ulcerations. The patient had been treated by his primary care physician for suspected lower extremity cellulitis, with recent prescriptions for oral antibiotics. At the time of intake, the patient was taking Keflex and doxycycline orally. The patient experiences swelling and edema in both lower extremities. His ulcerations began as blisters several months prior to presentation, which subsequently developed into open ulcerations. A wound culture of the left leg was performed on April 26, 2025, which revealed very rare coag negative staph. The patient is obese, with a BMI of 45.6. 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 He suffers from chronic swelling and edema in his lower extremities. He sleeps in a chair at night. He has a history of pulmonary embolism, and has previously undergone placement of an inferior vena cava filter. According to the patient, the filter was subsequently removed. The patient suffers from multiple other pre-existing medical conditions, which are listed herein. He has a history of testicular cancer, for which he has undergone bilateral orchiectomy. [facility] Medical History Chronic kidney disease, stage 3b Diabetes mellitus type 2, insulin dependent Hepatic fibrosis Obstructive sleep apnea Hypogonadism Postphlebitic syndrome with both ulcer and inflammation Venous stasis ulcer Left leg swelling Right leg swelling Venous stasis dermatitis of both lower extremities Venous stasis ulcer Chronic venous insufficiency History of pulmonary embolism Wears glasses Insulin dependent diabetes mellitus Back pain Dietary restriction History of GI bleed Former smoker CPAP (continuous positive airway pressure) dependence Sleep apnea History of edema History of echocardiogram History of stress test HLD (hyperlipidemia) Nausea and vomiting Hypogonadism in male Diarrhea Allergic rhinitis Blood in stool Presence of inferior vena cava filter Testicular cancer Gastric ulcer HTN (hypertension) Pulmonary embolism Diabetes Lactic acidosis Syncope Home Medications ?Medication ?Instructions ?Recorded ?Last Taken ?Type metformin 1,000 mg tablet 1 tab PO BIDCM DM 03/24/18 12/24/20 History albuterol sulfate 90 mcg/actuation 90 mcg inhalation Q4H PRN PRN 04/09/18 Unknown History aerosol inhaler wheezing/SOB testosterone 2 pump topical DAILY testicular ca 04/09/18 04/09/18 History insulin aspar prot-insulin aspart 30 unit subcut BID 02/22/23 Unknown History 100 unit/mL (70-30) subcutaneous pen (Novolog Mix 70-30FlexPen U-100) insulin glargine U-300 conc 300 240 unit subcut DAILY 02/22/23 Unknown History unit/mL (3 mL) subcutaneous pen (Toujeo Max U-300 SoloStar) losartan 100 mg tablet 100 mg PO DAILY 02/22/23 07/04/23 History rosuvastatin 40 mg tablet 40 mg PO DAILY 02/22/23 Unknown History pantoprazole 40 mg tablet,delayed 40 mg PO DAILY 1 month #30 tabs 10/26/23 Unknown Rx release furosemide 40 mg tablet 40 mg PO DAILY 10/27/23 Unknown History ipratropium bromide 42 mcg (0.06 2 spray intranasal TID 10/27/23 Unknown History %) nasal spray cholecalciferol (vitamin D3) 1,250 1,250 mcg PO QWEEK 1 month #4 caps 07/17/24 Unknown Rx mcg (50,000 unit) capsule tirzepatide 2.5 mg/0.5 mL 2.5 mg subcut QWEEK 10/18/24 Unknown History subcutaneous pen injector (Edwin) fenofibrate nanocrystallized 48 mg 48 mg PO QHS 1 month #30 tabs 10/19/24 Unknown Rx tablet icosapent ethyl 1 gram capsule 2 g (2 x 1 gram) PO BID 1 month 10/19/24 Unknown Rx #120 caps magnesium citrate 300 ml PO X1 #1 BOTTLE 12/14/24 Unknown Rx Allergy/AdvReac Type Severity Reaction Status Date / Time No Known Allergies Allergy Verified 04/30/25 14:06 Family History Mother Diabetes Sister Diabetes Brother Diabetes Father Cancer lung Surgical History Hx of appendectomy S/P insertion of IVC (inferior vena caval) filter History of back surgery History of orchiectomy, bilateral Social History Smoking Status: Former smoker Physical Exam Const alert, oriented x3, no apparent distress and well nourished Constitutional Narrative: The patient is morbidly obese. His BMI is 45.6 General Appearance: cooperative, comfortable, well kempt and well developed Orientation / Consciousness: awake, oriented to person, oriented to place and oriented to time Exam Limitations: no limitations HEENT normocephalic and head/scalp atraumatic Head and Scalp: normal to inspection, normocephalic and atraumatic Face and Sinus: normal facial exam Nose: external nose normal External Ear: external ears normal Teeth and Gingiva: poor dentition Eyes EOMs intact bilaterally General Eye: normal appearance of both eyes Resp normal respiratory effort, normal air movement, no retractions and no use of accessory muscles Effort and Inspection: able to speak in complete sentences Extremity General Extremity: Negative for clubbing or cyanosis Skin Wound Narrative: The swelling and edema in the patient's lower extremities is much improved, and has responded to conservative treatment measures and compression. The venous stasis dermatitis in the gaiter areas is also improved. A clustered ulceration in the right lower extremity remains healed and epithelialized. Two ulcerations are noted on the anterolateral aspect of the distal left lower extremity, which demonstrate a small amount of bioburden, as well as necrotic and nonviable tissue, though increasing areas of pink, healthy granulation tissue. The more superior of the 2 ulcerations appears nearly healed. Dimensions of the ulcerations are noted elsewhere. The ulcerations appear to be decreasing in size. The ulcerations are full-thickness in nature, extending through all layers of the dermis and into the subcutaneous tissues. Ulcer margins are well beveled. Neuro oriented x3, CN's II-XII intact bilaterally, moves all extremities, no focal motor deficits and no sensory deficits noted Sensorium / Orientation: awake, alert, oriented to person, oriented to place and oriented to time Speech: speech normal Psych Appearance: grossly normal and appropriate Attitude: calm Activity / Motor Behavior: appropriate eye contact Speech: normal speech Mood & Affect: euthymic mood Thought Process: normal thought process Thought Content: normal thought content Attention / Concentration: attention grossly intact Debridement Note Debridement Note Wound debrided: Left lower extremity ulcerations x 2 Laterality: Left Type of Debridement: Excisional debridement Anesthesia Used: 5% Lidocaine Gel and Cetacaine Depth: Down to and including healthy tissue and in the subcutaneous layer Percentage of wound debrided: 100 Instrument Used: 5mm curette Tissue Removed: Bioburden and devitalized tissue Severity: Fat Layer Exposed Amount of bleeding with debridement: Mild Bleeding Controlled with: Compression and gauze Patient tolerated procedure: Patient tolerated procedure well Post-Debridement Measurements and Additional Note: Post-Debridement Measurements/Treatment WC - Nurse 1 - General Ulcer Assessment Start: 05/07/25 15:23 Freq: Status: Active Protocol: JENY Activity Type Activity Date Activity User E-sign Co-sign Detail Recorded Client Recorded Date Recorded By Document 05/07/25 15:26 BMF [id number] 05/07/25 15:42 BMF Document 05/08/25 16:35 DS [id number] 05/08/25 16:37 DS Document 05/14/25 08:12 BMF [id number] 05/14/25 08:27 BMF Document 05/17/25 12:54 DS [id number] 05/17/25 12:54 DS Document 05/21/25 15:13 KW [id number] 05/21/25 15:28 KW Document 05/28/25 15:22 KW [id number] 05/28/25 15:29 KW 05/07/25 05/08/25 05/14/25 15:26 16:35 08:12 WC - Today's Visit Information Type of service Follow-up Visit Follow-up Visit Follow-up Visit (Physician/HEALTH POLICY ANALYST (Physician/HEALTH POLICY ANALYST (Physician/HEALTH POLICY ANALYST ) ) ) Arrival Mode Ambulatory Ambulatory Ambulatory Transfer Assistance None None Patient Identification Verified (Name & Yes Yes Yes ) Patient Requires Transmission-Based No No Precautions Vital Signs Temperature (97.8 F-99.1 F) 97.5 F L 97.7 F L 96.9 F L Temperature Source Temporal Temporal Temporal Pulse Rate (60-100) 86 86 91 Pulse Location Monitor Monitor Monitor Respiratory Rate (12-18) 20 H 18 18 Respiratory rate source Observation Observation Observation Oxygen Delivery Method Room Air Room Air Room Air Blood Pressure (90/60-120/80) 158/92 H 152/77 H 157/93 H Blood Pressure Mean 114 102 114 Source Monitor Monitor Monitor Position Sitting Sitting Sitting Blood Pressure Location Right Arm Left Arm Right Arm History Since Last Visit- (Skip if this is Patient's initial visit) Have you changed medications since your No No last visit? Any new allergies or adverse reactions No No Had a fall/change in ADL's that may No No increase risk of falls Signs or symptoms of abuse and/or No No neglect since last visit Have you been in the hospital since your No No last visit? Has dressing in place as prescribed Yes Yes Has compression in place as prescribed Yes Yes Has offloadiing in place as prescribed N/A N/A Experienced any changes in pain level or No No management Left Footwear Diabetic Shoe Diabetic Shoe Right Footwear Diabetic Shoe Diabetic Shoe Pain Scale: 0-10 Numeric Is Patient Pain Free? Yes Yes Yes 05/17/25 05/21/25 05/28/25 12:54 15:13 15:22 WC - Today's Visit Information Type of service Nurse-only Follow-up Visit Follow-up Visit Visit (Physician/HEALTH POLICY ANALYST (Physician/HEALTH POLICY ANALYST ) ) Arrival Mode Ambulatory Ambulatory Ambulatory Transfer Assistance Patient Identification Verified (Name & Yes Yes Yes ) Patient Requires Transmission-Based Precautions Vital Signs Temperature (97.8 F-99.1 F) 97.2 F L 97.8 F 96.8 F L Temperature Source Temporal Temporal Temporal Pulse Rate (60-100) 87 86 89 Pulse Location Monitor Monitor Monitor Respiratory Rate (12-18) 18 18 18 Respiratory rate source Observation Monitor Observation Oxygen Delivery Method Room Air Room Air Room Air Blood Pressure (90/60-120/80) 151/76 H 147/76 H 157/75 H Blood Pressure Mean 101 99 102 Source Monitor Monitor Monitor Position Sitting Sitting Sitting Blood Pressure Location Right Arm Left Arm Right Arm History Since Last Visit- (Skip if this is Patient's initial visit) Have you changed medications since your No No No last visit? Any new allergies or adverse reactions No No No Had a fall/change in ADL's that may No No No increase risk of falls Signs or symptoms of abuse and/or No No No neglect since last visit Have you been in the hospital since your No No No last visit? Has dressing in place as prescribed Yes Yes Yes Has compression in place as prescribed Yes Yes Yes Has offloadiing in place as prescribed N/A N/A N/A Experienced any changes in pain level or No No No management Left Footwear Regular Shoe Regular Shoe Regular Shoe Right Footwear Regular Shoe Regular Shoe Regular Shoe Pain Scale: 0-10 Numeric Is Patient Pain Free? Yes Yes Yes - Nurse 1 - General Ulcer Measurement Start: 05/07/25 15:23 Freq: Status: Active Protocol: Activity Type Activity Date Activity User E-sign Co-sign Detail Recorded Client Recorded Date Recorded By Document 05/07/25 15:26 BM [id number] 05/07/25 15:42 BM Document 05/14/25 08:12 BM [id number] 05/14/25 08:27 BM Document 05/21/25 15:13 KW [id number] 05/21/25 15:28 KW Document 05/28/25 15:22 KW [id number] 05/28/25 15:29 KW 05/07/25 05/14/25 05/21/25 15:26 08:12 15:13 Wound Center Nurse 1 #3 RLE CLUSTER -Combined with other wound No No -Current Size (cm) - Length 1 0.1 -Current Size (cm) - Width 0.6 0.1 -Current Size (cm) - Depth 0.1 0.1 -Total Square Cm 0.6 0.01 -Date of Last Picture (Recall this 05/07/25 05/14/25 field) -Photo Taken Yes Yes -Epithelialization Small 1-33% Large 67-100% -Tunneling No -Undermining/Tunneling No -Circular Undermining No -Exudate Amt Medium -Exudate Type Serosanguineous -Wound Margin Distinct, Outline Attached -Granulation Amt Large (67-100%) -Granulation Quality Red -Slough/Fibrin Yes -Necrosis Amt Small (1-33%) -Necrotic Tissue Type Adherent Slough -Texture (Shawanda-wound Skin Appearance) Assessed, Scarring Scarring -Moisture (Shawanda-wound Skin Appearance) Assessed -Color (Shawanda-wound Skin Appearance) Assessed -Temperature (Shawanda-wound Skin No Abnormality Appearance) (Pt Warm) -Tenderness on Palpation (Shawanda-wound No Skin Appearance) -Ulcer Cleansing Soap and Water -Foul Odor after Cleansing No -Anesthetic Used 5% Lidocaine Gel #2 LLE INF -Combined with other wound No No -Current Size (cm) - Length 2.4 2.2 1.8 -Current Size (cm) - Width 1.7 1.4 1.2 -Current Size (cm) - Depth 0.2 0.1 0.1 -Total Square Cm 4.08 3.08 2.16 -Date of Last Picture (Recall this 05/07/25 05/14/25 05/21/25 field) -Photo Taken Yes Yes -Epithelialization Small 1-33% Small 1-33% -Tunneling No No -Undermining/Tunneling No No -Circular Undermining No No -Exudate Amt Large Medium Medium -Exudate Type Serosanguineous Serosanguineous Serosanguineous -Wound Margin Distinct, Flat & Intact Distinct, Outline Outline Attached Attached -Granulation Amt Medium (34-66%) Medium (34-66%) Large (67-100%) -Granulation Quality Red Red Red -Slough/Fibrin Yes Yes -Necrosis Amt Medium (34-66%) Medium (34-66%) -Necrotic Tissue Type Adherent Slough Adherent Slough -Texture (Shawanda-wound Skin Appearance) Assessed, Assessed, Assessed Scarring Scarring -Moisture (Shawanda-wound Skin Appearance) Assessed Assessed Assessed, Maceration -Color (Shawanda-wound Skin Appearance) Assessed Assessed Assessed, Hemosiderin Staining -Temperature (Shawanda-wound Skin No Abnormality No Abnormality No Abnormality Appearance) (Pt Warm) (Pt Warm) (Pt Warm) -Tenderness on Palpation (Shawanda-wound No No No Skin Appearance) -Ulcer Cleansing Soap and Water Soap and Water Soap and Water -Foul Odor after Cleansing No No No -Anesthetic Used 5% Lidocaine 5% Lidocaine 5% Lidocaine Gel Gel Gel #1 LLE SUP -Combined with other wound No No -Current Size (cm) - Length 2.8 2.5 2 -Current Size (cm) - Width 1.6 1.5 0.7 -Current Size (cm) - Depth 0.1 0.1 0.1 -Total Square Cm 4.48 3.75 1.4 -Date of Last Picture (Recall this 05/07/25 05/14/25 05/21/25 field) -Photo Taken Yes Yes -Epithelialization Small 1-33% Small 1-33% -Tunneling No No -Undermining/Tunneling No No -Circular Undermining No No -Exudate Amt Large Medium Medium -Exudate Type Serosanguineous Serosanguineous Serosanguineous -Wound Margin Distinct, Flat & Intact Distinct, Outline Outline Attached Attached -Granulation Amt Medium (34-66%) Medium (34-66%) Large (67-100%) -Granulation Quality Red Red -Slough/Fibrin Yes Yes -Necrosis Amt Medium (34-66%) Medium (34-66%) Small (1-33%) -Necrotic Tissue Type Adherent Slough Adherent Slough Adherent Slough -Texture (Shawanda-wound Skin Appearance) Assessed, Assessed, Assessed Scarring Scarring -Moisture (Shawanda-wound Skin Appearance) Assessed Assessed Assessed -Color (Shawanda-wound Skin Appearance) Assessed Assessed Assessed, Hemosiderin Staining -Temperature (Shawanda-wound Skin No Abnormality No Abnormality No Abnormality Appearance) (Pt Warm) (Pt Warm) (Pt Warm) -Tenderness on Palpation (Shawanda-wound No No No Skin Appearance) -Ulcer Cleansing Soap and Water Soap and Water Soap and Water -Foul Odor after Cleansing No No No -Anesthetic Used 5% Lidocaine 5% Lidocaine 5% Lidocaine Gel Gel Gel Lower Limb Edema Present Yes Yes Right Calf (cm) 41 41 39 Right Ankle (cm) 22.8 22.4 21 Left Calf (cm) 42.5 42.2 41 Left Ankle (cm) 23.4 23.6 21.5 05/28/25 15:22 Wound Center Nurse 1 #3 RLE CLUSTER -Combined with other wound -Current Size (cm) - Length -Current Size (cm) - Width -Current Size (cm) - Depth -Total Square Cm -Date of Last Picture (Recall this field) -Photo Taken -Epithelialization -Tunneling -Undermining/Tunneling -Circular Undermining -Exudate Amt -Exudate Type -Wound Margin -Granulation Amt -Granulation Quality -Slough/Fibrin -Necrosis Amt -Necrotic Tissue Type -Texture (Shawanda-wound Skin Appearance) -Moisture (Shawanda-wound Skin Appearance) -Color (Shawanda-wound Skin Appearance) -Temperature (Shawanda-wound Skin Appearance) -Tenderness on Palpation (Shawanda-wound Skin Appearance) -Ulcer Cleansing -Foul Odor after Cleansing -Anesthetic Used #2 LLE INF -Combined with other wound -Current Size (cm) - Length 0.1 -Current Size (cm) - Width 0.1 -Current Size (cm) - Depth 0.1 -Total Square Cm 0.01 -Date of Last Picture (Recall this 05/28/25 field) -Photo Taken -Epithelialization Large 67-100% -Tunneling -Undermining/Tunneling -Circular Undermining -Exudate Amt Small -Exudate Type Serosanguineous -Wound Margin Distinct, Outline Attached -Granulation Amt Small (1-33%) -Granulation Quality Red -Slough/Fibrin -Necrosis Amt -Necrotic Tissue Type -Texture (Shawanda-wound Skin Appearance) Assessed -Moisture (Shawanda-wound Skin Appearance) Assessed -Color (Shawanda-wound Skin Appearance) Assessed -Temperature (Shawanda-wound Skin No Abnormality Appearance) (Pt Warm) -Tenderness on Palpation (Shawanda-wound Skin Appearance) -Ulcer Cleansing Soap and Water -Foul Odor after Cleansing No -Anesthetic Used 5% Lidocaine Gel #1 LLE SUP -Combined with other wound -Current Size (cm) - Length 1.4 -Current Size (cm) - Width 1 -Current Size (cm) - Depth 0.1 -Total Square Cm 1.4 -Date of Last Picture (Recall this 05/28/25 field) -Photo Taken -Epithelialization Medium 34-66% -Tunneling -Undermining/Tunneling -Circular Undermining -Exudate Amt Medium -Exudate Type Serosanguineous -Wound Margin Distinct, Outline Attached -Granulation Amt Large (67-100%) -Granulation Quality Red -Slough/Fibrin -Necrosis Amt Small (1-33%) -Necrotic Tissue Type Adherent Slough -Texture (Shawanda-wound Skin Appearance) Assessed -Moisture (Shawanda-wound Skin Appearance) Assessed -Color (Shawanda-wound Skin Appearance) Assessed -Temperature (Shawanda-wound Skin No Abnormality Appearance) (Pt Warm) -Tenderness on Palpation (Shawanda-wound No Skin Appearance) -Ulcer Cleansing Soap and Water -Foul Odor after Cleansing No -Anesthetic Used 5% Lidocaine Gel Lower Limb Edema Present Right Calf (cm) Right Ankle (cm) Left Calf (cm) 40 Left Ankle (cm) 21 WC - Nurse 2 - General Ulcer CM Notes Start: 05/07/25 15:23 Freq: Status: Active Protocol: Activity Type Activity Date Activity User E-sign Co-sign Detail Recorded Client Recorded Date Recorded By Document 05/07/25 15:51 DS [id number] 05/07/25 16:01 DS Document 05/14/25 08:48 DS [id number] 05/14/25 08:51 DS Edit Result 05/14/25 08:48 DS (1) [id number] 05/14/25 08:54 DS Document 05/21/25 15:34 DS [id number] 05/21/25 15:38 DS Document 05/28/25 15:59 DS [id number] 05/28/25 16:00 DS (1) #2 LLE INF - Post Debridement (cm) - Length => 2.1 - Post Debridement (cm) - Width => 1.5 - Post Debridement (cm) - Depth => 0.1 - Total Square (Post) (cm) => 3.15 - Area of Debridement (cm) - Length => 2.1 - Area of Debridement (cm) - Width => 1.5 - Total Square (Area) (cm) => 3.15 #1 LLE SUP - Post Debridement (cm) - Length => 2.5 - Post Debridement (cm) - Width => 2.0 - Post Debridement (cm) - Depth => 0.1 - Total Square (Post) (cm) => 5.00 - Area of Debridement (cm) - Length => 2.5 - Area of Debridement (cm) - Width => 2.0 - Total Square (Area) (cm) => 5.00 05/07/25 05/14/25 05/21/25 15:51 08:48 15:34 Wound Center Nurse 2 #3 RLE CLUSTER -Time 15:53 08:48 -Correct Patient Yes Yes -Correct Side, Site, Position Yes Yes -Correct Procedure Yes -Procedure Performed Yes No -Type of Procedure Debridement -Clinical Debridement Subcutaneous -Tissue Removed Subcutaneous -Post Debridement (cm) - Length 5.7 -Post Debridement (cm) - Width 3.0 -Post Debridement (cm) - Depth 0.1 -Total Square (Post) (cm) 17.10 -Area of Debridement (cm) - Length 5.7 -Area of Debridement (cm) - Width 3.0 -Total Square (Area) (cm) 17.10 -Tunneling No -Undermining/Tunneling No -Circular Undermining No -Wound/Ulcer Outcome Not Healed Healed- Epithelialized -Ulcer Cleansing gauze gauze -Foul Odor after Cleansing No -Bioengineered Tissue No -Bleeding Controlled with Pressure -Treatment Response Procedure Tolerated Well -Debridement - Subq, 1st 20sq cm Yes -Debridement, SubQ, ea addt'l 20sq cm 1 or part thereof #2 LLE INF -Time 15:53 08:49 15:34 -Correct Patient Yes Yes Yes -Correct Side, Site, Position Yes Yes Yes -Correct Procedure Yes Yes Yes -Procedure Performed Yes Yes Yes -Type of Procedure Debridement Debridement Debridement -Clinical Debridement Subcutaneous Subcutaneous Subcutaneous -Tissue Removed Subcutaneous Subcutaneous Subcutaneous -Post Debridement (cm) - Length 2.5 2.1 1.7 -Post Debridement (cm) - Width 2.0 1.5 1.2 -Post Debridement (cm) - Depth 0.1 0.1 0.1 -Total Square (Post) (cm) 5.00 3.15 2.04 -Area of Debridement (cm) - Length 2.5 2.1 1.7 -Area of Debridement (cm) - Width 2.0 1.5 1.2 -Total Square (Area) (cm) 5.00 3.15 2.04 -Tunneling No No No -Undermining/Tunneling No No No -Circular Undermining No No No -Wound/Ulcer Outcome Not Healed Not Healed Not Healed -Ulcer Cleansing gauze GAUZE -Foul Odor after Cleansing No No No -Bioengineered Tissue No No No -Bleeding Controlled with Pressure Pressure Pressure -Treatment Response Procedure Procedure Procedure Tolerated Well Tolerated Well Tolerated Well -Debridement - Subq, 1st 20sq cm No Yes Yes #1 LLE SUP -Time 15:54 08:49 15:34 -Correct Patient Yes Yes Yes -Correct Side, Site, Position Yes Yes Yes -Correct Procedure Yes Yes Yes -Procedure Performed Yes Yes Yes -Type of Procedure Debridement Debridement Debridement -Clinical Debridement Subcutaneous Subcutaneous Subcutaneous -Tissue Removed Subcutaneous Subcutaneous Subcutaneous -Post Debridement (cm) - Length 3.0 2.5 1.9 -Post Debridement (cm) - Width 2.0 2.0 0.8 -Post Debridement (cm) - Depth 0.1 0.1 0.1 -Total Square (Post) (cm) 6.00 5.00 1.52 -Area of Debridement (cm) - Length 3.0 2.5 1.9 -Area of Debridement (cm) - Width 2.0 2.0 0.8 -Total Square (Area) (cm) 6.00 5.00 1.52 -Tunneling No No No -Undermining/Tunneling No No No -Circular Undermining No No No -Wound/Ulcer Outcome Not Healed Not Healed Not Healed -Ulcer Cleansing gauze GAUZE -Foul Odor after Cleansing No No No -Bioengineered Tissue No No No -Bleeding Controlled with Pressure Pressure Pressure -Treatment Response Procedure Procedure Procedure Tolerated Well Tolerated Well Tolerated Well -Offloading No -Debridement - Subq, 1st 20sq cm No No No Pain Scale: 0-10 Numeric Is Patient Pain Free? Yes Yes Yes 05/28/25 15:59 Wound Center Nurse 2 #3 RLE CLUSTER -Time -Correct Patient -Correct Side, Site, Position -Correct Procedure -Procedure Performed -Type of Procedure -Clinical Debridement -Tissue Removed -Post Debridement (cm) - Length -Post Debridement (cm) - Width -Post Debridement (cm) - Depth -Total Square (Post) (cm) -Area of Debridement (cm) - Length -Area of Debridement (cm) - Width -Total Square (Area) (cm) -Tunneling -Undermining/Tunneling -Circular Undermining -Wound/Ulcer Outcome -Ulcer Cleansing -Foul Odor after Cleansing -Bioengineered Tissue -Bleeding Controlled with -Treatment Response -Debridement - Subq, 1st 20sq cm -Debridement, SubQ, ea addt'l 20sq cm or part thereof #2 LLE INF -Time 15:59 -Correct Patient Yes -Correct Side, Site, Position Yes -Correct Procedure Yes -Procedure Performed Yes -Type of Procedure Debridement -Clinical Debridement Subcutaneous -Tissue Removed Subcutaneous -Post Debridement (cm) - Length 1.0 -Post Debridement (cm) - Width 0.6 -Post Debridement (cm) - Depth 0.1 -Total Square (Post) (cm) 0.60 -Area of Debridement (cm) - Length 1.0 -Area of Debridement (cm) - Width 0.6 -Total Square (Area) (cm) 0.60 -Tunneling No -Undermining/Tunneling No -Circular Undermining No -Wound/Ulcer Outcome Not Healed -Ulcer Cleansing -Foul Odor after Cleansing No -Bioengineered Tissue No -Bleeding Controlled with Pressure -Treatment Response -Debridement - Subq, 1st 20sq cm Yes #1 LLE SUP -Time 15:59 -Correct Patient Yes -Correct Side, Site, Position Yes -Correct Procedure Yes -Procedure Performed Yes -Type of Procedure Debridement -Clinical Debridement Subcutaneous -Tissue Removed Subcutaneous -Post Debridement (cm) - Length 0.1 -Post Debridement (cm) - Width 0.1 -Post Debridement (cm) - Depth 0.1 -Total Square (Post) (cm) 0.01 -Area of Debridement (cm) - Length 0.1 -Area of Debridement (cm) - Width 0.1 -Total Square (Area) (cm) 0.01 -Tunneling No -Undermining/Tunneling No -Circular Undermining No -Wound/Ulcer Outcome Not Healed -Ulcer Cleansing -Foul Odor after Cleansing -Bioengineered Tissue -Bleeding Controlled with Pressure -Treatment Response Procedure Tolerated Well -Offloading -Debridement - Subq, 1st 20sq cm No Pain Scale: 0-10 Numeric Is Patient Pain Free? Yes WC - Nurse 3 - General Ulcer D/C NN Start: 05/07/25 15:23 Freq: Status: Active Protocol: Activity Type Activity Date Activity User E-sign Co-sign Detail Recorded Client Recorded Date Recorded By Document 05/07/25 16:00 KW [id number] 05/07/25 16:02 KW Document 05/08/25 16:37 DS [id number] 05/08/25 16:38 DS Document 05/14/25 09:13 BMF [id number] 05/14/25 09:14 BMF Document 05/17/25 12:55 DS [id number] 05/17/25 13:01 DS Document 05/21/25 15:43 KW [id number] 05/21/25 15:45 KW Document 05/28/25 16:16 KW [id number] 05/28/25 16:17 KW 05/07/25 05/08/25 05/14/25 16:00 16:37 09:13 [facility] Nurse 3 #3 RLE CLUSTER -Other Dressing hydrogel -Primary Dressing Covered/Secured with Dry Gauze & Roll Gauze, Secured with Tape #2 LLE INF -Ulcer Cleansing Rinsed/ Irrigated with Saline -Primary Dressing Applied -Other Dressing hydrogel unna boot -Primary Dressing Covered/Secured with Dry Gauze & Roll Gauze, Secured with Tape -Aquacel AG 4x4 #1 LLE SUP -Ulcer Cleansing Rinsed/ Irrigated with Saline -Other Dressing hydrogel unna boot -Primary Dressing Covered/Secured with Dry Gauze & Roll Gauze, Secured with Tape BLE -Multi-Layered Wrap Application Unna Boot - Bilateral -Tubular Bandage Single Layer -Size of Tubigrip Used Size E -Size E ($) 2 -Unna- Bilat (Qty applied) 1 LLE -Multi-Layered Wrap Application Multi-Layer Comp - Left ($) -Tubular Bandage -Size of Tubigrip Used -Size E ($) -Unna- Left (Qty applied) -Multi-Layer Compression Left (Qty 1 applied) RLE -Multi-Layered Wrap Application Unna Boot - Right -Other -Unna- Right (Qty applied) 1 -Multi-Layer Compression Right (Qty applied) Treatment Response Procedure Tolerated Well Pain Scale: 0-10 Numeric Is Patient Pain Free? Yes Yes Yes WC - Visit Discharge Discharge Condition Stable Stable Stable Ambulatory Status Ambulatory Ambulatory Ambulatory Transportation Private Auto Private Auto Medication Reconcilliation completed & No provided to patient/care provider Clinical Summary of Care Provided Yes 05/17/25 05/21/25 05/28/25 12:55 15:43 16:16 Wound Care Center Nurse 3 #3 RLE CLUSTER -Other Dressing -Primary Dressing Covered/Secured with #2 LLE INF -Ulcer Cleansing Soap and Water -Primary Dressing Applied Aquacel AG 4x4 Aquacel AG 4x4 -Other Dressing moisten aquacel ag -Primary Dressing Covered/Secured with Dry Gauze Dry Gauze & Roll Gauze, Secured with Tape -Aquacel AG 4x4 1 1 #1 LLE SUP -Ulcer Cleansing Soap and Water -Other Dressing AQUACEL AG aquacel ag MOISTENED moistened -Primary Dressing Covered/Secured with Dry Gauze Dry Gauze BLE -Multi-Layered Wrap Application -Tubular Bandage -Size of Tubigrip Used -Size E ($) -Unna- Bilat (Qty applied) LLE -Multi-Layered Wrap Application Unna Boot - Multi-Layer Left Comp - Left ($) -Tubular Bandage Double Layer -Size of Tubigrip Used Size E -Size E ($) 2 -Unna- Left (Qty applied) 1 -Multi-Layer Compression Left (Qty 1 applied) RLE -Multi-Layered Wrap Application Multi-Layer Comp - Right ($ ) -Other PT OWN pt own COMPRESSION compression STOCKING stocking -Unna- Right (Qty applied) -Multi-Layer Compression Right (Qty 1 applied) Treatment Response Pain Scale: 0-10 Numeric Is Patient Pain Free? Yes Yes Yes WC - Visit Discharge Discharge Condition Stable Stable Stable Ambulatory Status Ambulatory Ambulatory Ambulatory Transportation Private Auto Private Auto Private Auto Medication Reconcilliation completed & No No provided to patient/care provider Clinical Summary of Care Provided Yes Yes Charges/Coding Procedures Integumentary [id number]: [id number] Elida subq tissue 20 sq cm/< Assessment/Plan Assessment/Plan (1) Venous stasis ulcer: CODE(S): I83.009 - Varicose veins of unspecified lower extremity with ulcer of unspecified site; L97.909 - Non-pressure chronic ulcer of unspecified part of unspecified lower leg with unspecified severity QUALIFIERS: Venous stasis ulcer site: calf Varicose vein presence: without varicose veins Laterality: left Non-pressure ulcer stage: with fat layer exposed Qualified Code(s): I87.2 - Venous insufficiency (chronic) (peripheral); L97.222 - Non-pressure chronic ulcer of left calf with fat layer exposed (2) Venous stasis ulcer: CODE(S): I83.009 - Varicose veins of unspecified lower extremity with ulcer of unspecified site; L97.909 - Non-pressure chronic ulcer of unspecified part of unspecified lower leg with unspecified severity QUALIFIERS: Venous stasis ulcer site: calf Varicose vein presence: without varicose veins Laterality: right Non-pressure ulcer stage: with fat layer exposed Qualified Code(s): I87.2 - Venous insufficiency (chronic) (peripheral); L97.212 - Non-pressure chronic ulcer of right calf with fat layer exposed (3) Postphlebitic syndrome with both ulcer and inflammation: CODE(S): I87.039 - Postthrombotic syndrome with ulcer and inflammation of unspecified lower extremity (4) Venous stasis dermatitis of both lower extremities: CODE(S): I87.2 - Venous insufficiency (chronic) (peripheral) (5) Chronic venous insufficiency: CODE(S): I87.2 - Venous insufficiency (chronic) (peripheral) (6) Right leg swelling: CODE(S): M79.89 - Other specified soft tissue disorders (7) Left leg swelling: CODE(S): M79.89 - Other specified soft tissue disorders (8) Hypertriglyceridemia: CODE(S): E78.1 - Pure hyperglyceridemia (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 QUALIFIERS: Villalba's esophagus type: without dysplasia Qualified Code(s): K22.70 - Villalba's esophagus without dysplasia (10) NAFLD (nonalcoholic fatty liver disease): CODE(S): K76.0 - Fatty (change of) liver, not elsewhere classified (11) Thrombocytopenia: CODE(S): D69.6 - Thrombocytopenia, unspecified (12) Liver disease: CODE(S): K76.9 - Liver disease, unspecified (13) History of pulmonary embolism: CODE(S): Z86.711 - Personal history of pulmonary embolism (14) HTN (hypertension): CODE(S): I10 - Essential (primary) hypertension (15) Testicular cancer: CODE(S): C62.90 - Malignant neoplasm of unspecified testis, unspecified whether descended or undescended (16) Hypogonadism: (17) Obstructive sleep apnea: CODE(S): G47.33 - Obstructive sleep apnea (adult) (pediatric) (18) Hepatic fibrosis: CODE(S): K74.00 - Hepatic fibrosis, unspecified (19) Diabetes mellitus type 2, insulin dependent: CODE(S): E11.9 - Type 2 diabetes mellitus without complications; Z79.4 - half-way (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 The ulcerations appear to be related to chronic dependency and chronic venous insufficiency. He also appears to have symptoms consistent with postphlebitic syndrome with inflammation and ulceration. He has a history of pulmonary embolism in the past, for which an inferior vena cava filter was previously placed. Though not certain, it is presumed that he also has a history of deep vein thrombosis of the lower extremities. A lengthy discussion has been undertaken with the patient regarding the appropriate conservative means in the management of his chronic venous disease. Leg elevation has been advised. The patient has been instructed to elevate his lower extremities to heart level, or higher, as much as possible. Leg elevation is to be implemented during both daytime and nighttime hours. The patient has been encouraged to sleep on a flat mattress at night. The patient has been advised to refrain from prolonged, idle sitting and standing. Activity has been encouraged. The benefit of implementing the calf muscle pumps has been described. We are to continue the use of moistened Aquacel Ag topically to the ulcerations on the left lower extremity, which will be applied on a daily basis. The patient has been instructed in the appropriate means of application. He has also been provided the product for use. The patient has obtained graduated compression stockings of 20 to 30 mmHg compression, which are to be donned bilaterally on a daily basis. The patient has been advised to optimize his nutritional intake, as well as his glycemic control. The patient's recent laboratory results from April 23, 2025, have been reviewed, and are as follows: White blood count 7.7, hemoglobin 11.5, hematocrit 36.8, platelets 97,000, sodium 140, potassium 3.8, chloride 101, BUN 30, creatinine 1.31, calcium 9.9, total bilirubin 0.93, AST 36, ALT 27, alkaline phosphatase 95, total protein 7.1, albumin 4.0. The patient indicates that Dr. Durham has ordered pneumatic mechanical compression pumps, which are expected to be received within the next several days. The patient has been requested to bring these to his next [facility] appointment. The patient is to return in 1 week for reevaluation. Total time: 25 minutes
[2025-06-04 15:09] VITALS: BP 185/86; PULSE 81; RESP 18; TEMP 36.2
--- NOTE | 2025-06-05 13:22 | WC ---
PHOTO-LLE SUP 06/04/25
--- NOTE | 2025-06-05 13:24 | WC ---
PHOTO-LLE INF. 06/04/25
--- NOTE | 2025-06-05 20:24 | HP.PCM_ITS ---
History of Present Illness Date of Service: 06/04/25 Chief Complaint: Chronic venous insufficiency with bilateral lower extremity venous stasis ulcerations History of Wound: This is a 59-year-old male who presented with severe venous stasis dermatitis in his lower extremities, as well as bilateral lower extremity venous stasis ulcerations. The patient had been treated by his primary care physician for suspected lower extremity cellulitis, with recent prescriptions for oral antibiotics. At the time of intake, the patient was taking Keflex and doxycycline orally. The patient experiences swelling and edema in both lower extremities. His ulcerations began as blisters several months prior to pre sentation, which subsequently developed into open ulcerations. A wound culture of the left leg was performed on April 26, 2025, which revealed very rare coag negative staph. The patient is obese, with a BMI of 45.6. 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 He suffers from chronic swelling and edema in his lower extremities. He sleeps in a chair at night. He has a history of pulmonary embolism, and has previously undergone placement of an inferior vena cava filter. According to the patient, the filter was subsequently removed. The patient suffers from multiple other pre-existing medical conditions, which are listed herein. He has a history of testicular cancer, for which he has undergone bilateral orchiectomy. [facility] Medical History Chronic kidney disease, stage 3b Diabetes mellitus type 2, insulin dependent Hepatic fibrosis Obstructive sleep apnea Hypogonadism Postphlebitic syndrome with both ulcer and inflammation Venous stasis ulcer Left leg swelling Right leg swelling Venous stasis dermatitis of both lower extremities Venous stasis ulcer Chronic venous insufficiency History of pulmonary embolism Wears glasses Insulin dependent diabetes mellitus Back pain Dietary restriction History of GI bleed Former smoker CPAP (continuous positive airway pressure) dependence Sleep apnea History of edema History of echocardiogram History of stress test HLD (hyperlipidemia) Nausea and vomiting Hypogonadism in male Diarrhea Allergic rhinitis Blood in stool Presence of inferior vena cava filter Testicular cancer Gastric ulcer HTN (hypertension) Pulmonary embolism Diabetes Lactic acidosis Syncope Home Medications ?Medication ?Instructions ?Recorded ?Last Taken ?Type metformin 1,000 mg tablet 1 tab PO BIDCM DM 03/24/18 0 12/24/20 History albuterol sulfate 90 mcg/actuation 90 mcg inhalation Q 4H PRN PRN 04/09/18 Unknown History aerosol inhaler wheezing/SOB testosterone 2 pump topical DAILY testicu lar ca 04/09/18 04/09/18 History insulin aspar prot-insulin aspart 30 unit subcut BID 0 02/22/23 Unknown History 100 unit/mL (70-30) subcutaneous pen (Novolog Mix 70-30FlexPen U-100) insulin glargine U-300 conc 300 240 unit subcut DAILY 02/22/23 Unknown History unit/mL (3 mL) subcutaneous pen (Toujeo Max U-300 SoloStar) losartan 100 mg tablet 100 mg PO DAILY 02/22/23 History rosuvastatin 40 mg tablet 40 mg PO DAILY 02/22/23 Unkn own History pantoprazole 40 mg tablet,delayed 40 mg PO DAILY 1 mon th #30 tabs 10/26/23 Unknown Rx release furosemide 40 mg tablet 40 mg PO DAILY 10/27/23 Unkn own History ipratropium bromide 42 mcg (0.06 2 spray intranasal TI D 10/27/23 Unknown History %) nasal spray cholecalciferol (vitamin D3) 1,250 1,250 mcg PO QWEEK 1 month #4 caps 07/17/24 Unknown Rx mcg (50,000 unit) capsule tirzepatide 2.5 mg/0.5 mL 2.5 mg subcut QWEEK 10/18/24 Unknown History subcutaneous pen injector (Edwin) fenofibrate nanocrystallized 48 mg 48 mg PO QHS 1 annalise h #30 tabs 10/19/24 Unknown Rx tablet icosapent ethyl 1 gram capsule 2 g (2 x 1 gram) PO BID 1 month 10/19/24 Unknown Rx #120 caps magnesium citrate 300 ml PO X1 #1 BOTTLE 12/14 Unknown Rx Allergy/AdvReac Type Severity Reaction Status Date / Time No Known Allergies Allergy Verified 04/30/25 14:06 Family History Mother Diabetes Sister Diabetes Brother Diabetes Father Cancer lung Surgical History Hx of appendectomy S/P insertion of IVC (inferior vena caval) filter History of back surgery History of orchiectomy, bilateral Social History Smoking Status: Former smoker Physical Exam Const alert, oriented x3, no apparent distress and well nourished Constitutional Narrative: The patient is morbidly obese. His BMI is 45.6 General Appearance: cooperative, comfortable, well kempt and well developed Orientation / Consciousness: awake, oriented to person, oriented to place and oriented to time Exam Limitations: no limitations HEENT normocephalic and head/scalp atraumatic Head and Scalp: normal to inspection, normocephalic and atraumatic Face and Sinus: normal facial exam Nose: external nose normal External Ear: external ears normal Teeth and Gingiva: poor dentition Eyes EOMs intact bilaterally General Eye: normal appearance of both eyes Resp normal respiratory effort, normal air movement, no retractions and no use of accessory muscles Effort and Inspection: able to speak in complete sentences Extremity General Extremity: Negative for clubbing or cyanosis Skin Wound Narrative: The swelling and edema in the patient's lower extremities is much improved, and has responded to conservative treatment measures and compression. The venous stasis dermatitis in the gaiter areas is also improved. A clustered ulceration in the right lower extremity remains healed and epithelialized. The superior ulceration on the anterolateral aspect of the distal left lower extremity is now healed and epithelialized. The inferior ulceration is smaller in size, and healthy granulation tissue is noted. There is also a small amount of slough and bioburden. Ulcer margins are well beveled. The ulceration is full-thickness, extending through all layers of the dermis and into the subcutaneous tissues. Dimensions are documented elsewhere. Neuro oriented x3, CN's II-XII intact bilaterally, moves all extremities, no focal motor deficits and no sensory deficits noted Sensorium / Orientation: awake, alert, oriented to person, oriented to place and oriented to time Speech: speech normal Psych Appearance: grossly normal and appropriate Attitude: calm Activity / Motor Behavior: appropriate eye contact Speech: normal speech Mood & Affect: euthymic mood Thought Process: normal thought process Thought Content: normal thought content Attention / Concentration: attention grossly intact Debridement Note Debridement Note Wound debrided: Left lower extremity ulceration Laterality: Left Type of Debridement: Excisional debridement Anesthesia Used: 5% Lidocaine Gel and Cetacaine Depth: Down to and including healthy tissue and in the subcutaneous layer Percentage of wound debrided: 100 Instrument Used: 5mm curette Tissue Removed: Bioburden and slough Severity: Fat Layer Exposed Amount of bleeding with debridement: Mild Bleeding Controlled with: Compression and gauze Patient tolerated procedure: Patient tolerated procedure well Post-Debridement Measurements and Additional Note: Post-Debridement Measurements/Treatment - Nurse 1 - General Ulcer Assessment Start: 05/07/25 15:23 Freq: Status: Active Protocol: DEEPIKA.HOLLANDT Activity Type Activity Date Activity User E-sign Co-sign Detail Recorded Client Recorded Date Recorded By Document 05/07/25 15:26 BMF [id number] 05/07/25 15:42 BMF Document 05/08/25 16:35 DS [id number] 05/08/25 16:37 DS Document 05/14/25 08:12 BMF [id number] 05/14/25 08:27 BMF Document 05/17/25 12:54 DS [id number] 05/17/25 12:54 DS Document 05/21/25 15:13 KW [id number] 05/21/25 15:28 KW Document 05/28/25 15:22 KW [id number] 05/28/25 15:29 KW Document 06/04/25 15:09 KW [id number] 06/04/25 15:14 KW 05/07/25 05/08/25 05/14/25 15:26 16:35 08:12 - Today's Visit Information Type of service Follow-up Visit Follow-up Visit Follow-up Visit (Physician/BUILD MANAGER (Physician/BUILD MANAGER (Physician/BUILD MANAGER ) ) ) Arrival Mode Ambulatory Ambulatory Ambulatory Transfer Assistance None None Patient Identification Verified (Name & Yes Yes Yes ) Patient Requires Transmission-Based No No Precautions Vital Signs Temperature (97.8 F-99.1 F) 97.5 F L 97.7 F L 96.9 F L Temperature Source Temporal Temporal Temporal Pulse Rate (60-100) 86 86 91 Pulse Location Monitor Monitor Monitor Respiratory Rate (12-18) 20 H 18 18 Respiratory rate source Observation Observation Observation Oxygen Delivery Method Room Air Room Air Room Air Blood Pressure (90/60-120/80) 158/92 H 152/77 H 157/93 H Blood Pressure Mean 114 102 114 Source Monitor Monitor Monitor Position Sitting Sitting Sitting Blood Pressure Location Right Arm Left Arm Right Arm History Since Last Visit- (Skip if this is Patient's initial visit) Have you changed medications since your No No last visit? Any new allergies or adverse reactions No No Had a fall/change in ADL's that may No No increase risk of falls Signs or symptoms of abuse and/or No No neglect since last visit Have you been in the hospital since your No No last visit? Has dressing in place as prescribed Yes Yes Has compression in place as prescribed Yes Yes Has offloadiing in place as prescribed N/A N/A Experienced any changes in pain level or No No management Left Footwear Diabetic Shoe Diabetic Shoe Right Footwear Diabetic Shoe Diabetic Shoe Pain Scale: 0-10 Numeric Is Patient Pain Free? Yes Yes Yes 05/17/25 05/21/25 05/28/25 12:54 15:13 15:22 - Today's Visit Information Type of service Nurse-only Follow-up Visit Follow-up Visit Visit (Physician/BUILD MANAGER (Physician/BUILD MANAGER ) ) Arrival Mode Ambulatory Ambulatory Ambulatory Transfer Assistance Patient Identification Verified (Name & Yes Yes Yes ) Patient Requires Transmission-Based Precautions Vital Signs Temperature (97.8 F-99.1 F) 97.2 F L 97.8 F 96.8 F L Temperature Source Temporal Temporal Temporal Pulse Rate (60-100) 87 86 89 Pulse Location Monitor Monitor Monitor Respiratory Rate (12-18) 18 18 18 Respiratory rate source Observation Monitor Observation Oxygen Delivery Method Room Air Room Air Room Air Blood Pressure (90/60-120/80) 151/76 H 147/76 H 157/75 H Blood Pressure Mean 101 99 102 Source Monitor Monitor Monitor Position Sitting Sitting Sitting Blood Pressure Location Right Arm Left Arm Right Arm History Since Last Visit- (Skip if this is Patient's initial visit) Have you changed medications since your No No No last visit? Any new allergies or adverse reactions No No No Had a fall/change in ADL's that may No No No increase risk of falls Signs or symptoms of abuse and/or No No No neglect since last visit Have you been in the hospital since your No No No last visit? Has dressing in place as prescribed Yes Yes Yes Has compression in place as prescribed Yes Yes Yes Has offloadiing in place as prescribed N/A N/A N/A Experienced any changes in pain level or No No No management Left Footwear Regular Shoe Regular Shoe Regular Shoe Right Footwear Regular Shoe Regular Shoe Regular Shoe Pain Scale: 0-10 Numeric Is Patient Pain Free? Yes Yes Yes 06/04/25 15:09 WC - Today's Visit Information Type of service Follow-up Visit (Physician/BUILD MANAGER ) Arrival Mode Ambulatory Transfer Assistance Patient Identification Verified (Name & Yes ) Patient Requires Transmission-Based Precautions Vital Signs Temperature (97.8 F-99.1 F) 97.2 F L Temperature Source Temporal Pulse Rate (60-100) 81 Pulse Location Monitor Respiratory Rate (12-18) 18 Respiratory rate source Observation Oxygen Delivery Method Room Air Blood Pressure (90/60-120/80) 185/86 H Blood Pressure Mean 119 Source Monitor Position Semi-Fowlers Blood Pressure Location Right Arm History Since Last Visit- (Skip if this is Patient's initial visit) Have you changed medications since your No last visit? Any new allergies or adverse reactions No Had a fall/change in ADL's that may No increase risk of falls Signs or symptoms of abuse and/or No neglect since last visit Have you been in the hospital since your No last visit? Has dressing in place as prescribed Yes Has compression in place as prescribed Yes Has offloadiing in place as prescribed N/A Experienced any changes in pain level or No management Left Footwear Regular Shoe Right Footwear Regular Shoe Pain Scale: 0-10 Numeric Is Patient Pain Free? Yes - Nurse 1 - General Ulcer Measurement Start: 05/07/25 15:23 Freq: Status: Active Protocol: Activity Type Activity Date Activity User E-sign Co-sign Detail Recorded Client Recorded Date Recorded By Document 05/07/25 15:26 [facility] [id number] 05/07/25 15:42 [facility] Document 05/14/25 08:12 [facility] [id number] 05/14/25 08:27 [facility] Document 05/21/25 15:13 [id number] 05/21/25 15:28 Document 05/28/25 15:22 KW [id number] 05/28/25 15:29 KW Document 06/04/25 15:09 KW [id number] 06/04/25 15:14 KW 05/07/25 05/14/25 05/21/25 15:26 08:12 15:13 Wound Center Nurse 1 #3 RLE CLUSTER -Combined with other wound No No -Current Size (cm) - Length 1 0.1 -Current Size (cm) - Width 0.6 0.1 -Current Size (cm) - Depth 0.1 0.1 -Total Square Cm 0.6 0.01 -Date of Last Picture (Recall this 05/07/25 05/14/25 field) -Photo Taken Yes Yes -Epithelialization Small 1-33% Large 67-100% -Tunneling No -Undermining/Tunneling No -Circular Undermining No -Exudate Amt Medium -Exudate Type Serosanguineous -Wound Margin Distinct, Outline Attached -Granulation Amt Large (67-100%) -Granulation Quality Red -Slough/Fibrin Yes -Necrosis Amt Small (1-33%) -Necrotic Tissue Type Adherent Slough -Texture (Shawanda-wound Skin Appearance) Assessed, Scarring Scarring -Moisture (Shawanda-wound Skin Appearance) Assessed -Color (Shawanda-wound Skin Appearance) Assessed -Temperature (Shawanda-wound Skin No Abnormality Appearance) (Pt Warm) -Tenderness on Palpation (Shawanda-wound No Skin Appearance) -Ulcer Cleansing Soap and Water -Foul Odor after Cleansing No -Anesthetic Used 5% Lidocaine Gel #1 LLE SUP -Combined with other wound No No -Current Size (cm) - Length 2.8 2.5 2 -Current Size (cm) - Width 1.6 1.5 0.7 -Current Size (cm) - Depth 0.1 0.1 0.1 -Total Square Cm 4.48 3.75 1.4 -Date of Last Picture (Recall this 05/07/25 05/14/25 05/21/25 field) -Photo Taken Yes Yes -Epithelialization Small 1-33% Small 1-33% -Tunneling No No -Undermining/Tunneling No No -Circular Undermining No No -Exudate Amt Large Medium Medium -Exudate Type Serosanguineous Serosanguineous Serosanguineous -Wound Margin Distinct, Flat & Intact Distinct, Outline Outline Attached Attached -Granulation Amt Medium (34-66%) Medium (34-66%) Large (67-100%) -Granulation Quality Red Red -Slough/Fibrin Yes Yes -Necrosis Amt Medium (34-66%) Medium (34-66%) Small (1-33%) -Necrotic Tissue Type Adherent Slough Adherent Slough Adherent Slough -Texture (Shawanda-wound Skin Appearance) Assessed, Assessed, Assessed Scarring Scarring -Moisture (Shawanda-wound Skin Appearance) Assessed Assessed Assessed -Color (Shawanda-wound Skin Appearance) Assessed Assessed Assessed, Hemosiderin Staining -Temperature (Shawanda-wound Skin No Abnormality No Abnormality No Abnormality Appearance) (Pt Warm) (Pt Warm) (Pt Warm) -Tenderness on Palpation (Shawanda-wound No No No Skin Appearance) -Ulcer Cleansing Soap and Water Soap and Water Soap and Water -Foul Odor after Cleansing No No No -Anesthetic Used 5% Lidocaine 5% Lidocaine 5% Lidocaine Gel Gel Gel #2 LLE INF -Combined with other wound No No -Current Size (cm) - Length 2.4 2.2 1.8 -Current Size (cm) - Width 1.7 1.4 1.2 -Current Size (cm) - Depth 0.2 0.1 0.1 -Total Square Cm 4.08 3.08 2.16 -Date of Last Picture (Recall this 05/07/25 05/14/25 05/21/25 field) -Photo Taken Yes Yes -Epithelialization Small 1-33% Small 1-33% -Tunneling No No -Undermining/Tunneling No No -Circular Undermining No No -Exudate Amt Large Medium Medium -Exudate Type Serosanguineous Serosanguineous Serosanguineous -Wound Margin Distinct, Flat & Intact Distinct, Outline Outline Attached Attached -Granulation Amt Medium (34-66%) Medium (34-66%) Large (67-100%) -Granulation Quality Red Red Red -Slough/Fibrin Yes Yes -Necrosis Amt Medium (34-66%) Medium (34-66%) -Necrotic Tissue Type Adherent Slough Adherent Slough -Texture (Shawanda-wound Skin Appearance) Assessed, Assessed, Assessed Scarring Scarring -Moisture (Shawanda-wound Skin Appearance) Assessed Assessed Assessed, Maceration -Color (Shawanda-wound Skin Appearance) Assessed Assessed Assessed, Hemosiderin Staining -Temperature (Shawanda-wound Skin No Abnormality No Abnormality No Abnormality Appearance) (Pt Warm) (Pt Warm) (Pt Warm) -Tenderness on Palpation (Shawanda-wound No No No Skin Appearance) -Ulcer Cleansing Soap and Water Soap and Water Soap and Water -Foul Odor after Cleansing No No No -Anesthetic Used 5% Lidocaine 5% Lidocaine 5% Lidocaine Gel Gel Gel Lower Limb Edema Present Yes Yes Right Calf (cm) 41 41 39 Right Ankle (cm) 22.8 22.4 21 Left Calf (cm) 42.5 42.2 41 Left Ankle (cm) 23.4 23.6 21.5 05/28/25 06/04/25 15:22 15:09 Wound Center Nurse 1 #3 RLE CLUSTER -Combined with other wound -Current Size (cm) - Length -Current Size (cm) - Width -Current Size (cm) - Depth -Total Square Cm -Date of Last Picture (Recall this field) -Photo Taken -Epithelialization -Tunneling -Undermining/Tunneling -Circular Undermining -Exudate Amt -Exudate Type -Wound Margin -Granulation Amt -Granulation Quality -Slough/Fibrin -Necrosis Amt -Necrotic Tissue Type -Texture (Shawanda-wound Skin Appearance) -Moisture (Shawanda-wound Skin Appearance) -Color (Shawanda-wound Skin Appearance) -Temperature (Shawanda-wound Skin Appearance) -Tenderness on Palpation (Shawanda-wound Skin Appearance) -Ulcer Cleansing -Foul Odor after Cleansing -Anesthetic Used #1 LLE SUP -Combined with other wound -Current Size (cm) - Length 1.4 0.1 -Current Size (cm) - Width 1 0.1 -Current Size (cm) - Depth 0.1 0 -Total Square Cm 1.4 0.01 -Date of Last Picture (Recall this 05/28/25 06/04/25 field) -Photo Taken -Epithelialization Medium 34-66% Large 67-100% -Tunneling -Undermining/Tunneling -Circular Undermining -Exudate Amt Medium None Present -Exudate Type Serosanguineous -Wound Margin Distinct, Outline Attached -Granulation Amt Large (67-100%) -Granulation Quality Red -Slough/Fibrin -Necrosis Amt Small (1-33%) -Necrotic Tissue Type Adherent Slough -Texture (Shawanda-wound Skin Appearance) Assessed Assessed -Moisture (Shawanda-wound Skin Appearance) Assessed Assessed -Color (Shawanda-wound Skin Appearance) Assessed Assessed, Hemosiderin Staining -Temperature (Shawanda-wound Skin No Abnormality No Abnormality Appearance) (Pt Warm) (Pt Warm) -Tenderness on Palpation (Shawanda-wound No No Skin Appearance) -Ulcer Cleansing Soap and Water Soap and Water -Foul Odor after Cleansing No No -Anesthetic Used 5% Lidocaine Gel #2 LLE INF -Combined with other wound -Current Size (cm) - Length 0.1 0.5 -Current Size (cm) - Width 0.1 0.3 -Current Size (cm) - Depth 0.1 0.1 -Total Square Cm 0.01 0.15 -Date of Last Picture (Recall this 05/28/25 06/04/25 field) -Photo Taken -Epithelialization Large 67-100% Large 67-100% -Tunneling -Undermining/Tunneling -Circular Undermining -Exudate Amt Small Small -Exudate Type Serosanguineous Sanguineous -Wound Margin Distinct, Distinct, Outline Outline Attached Attached -Granulation Amt Small (1-33%) Large (67-100%) -Granulation Quality Red Red -Slough/Fibrin -Necrosis Amt -Necrotic Tissue Type -Texture (Shawanda-wound Skin Appearance) Assessed Assessed -Moisture (Shawanda-wound Skin Appearance) Assessed Assessed -Color (Shawanda-wound Skin Appearance) Assessed Assessed -Temperature (Shawanda-wound Skin No Abnormality No Abnormality Appearance) (Pt Warm) (Pt Warm) -Tenderness on Palpation (Shawanda-wound No Skin Appearance) -Ulcer Cleansing Soap and Water Soap and Water -Foul Odor after Cleansing No No -Anesthetic Used 5% Lidocaine 5% Lidocaine Gel Gel Lower Limb Edema Present Right Calf (cm) Right Ankle (cm) Left Calf (cm) 40 41.5 Left Ankle (cm) 21 22 WC - Nurse 2 - General Ulcer CM Notes Start: 05/07/25 15:23 Freq: Status: Active Protocol: Activity Type Activity Date Activity User E-sign Co-sign Detail Recorded Client Recorded Date Recorded By Document 05/07/25 15:51 DS [id number] 05/07/25 16:01 DS Document 05/14/25 08:48 DS [id number] 05/14/25 08:51 DS Edit Result 05/14/25 08:48 DS (1) [id number] 05/14/25 08:54 DS Document 05/21/25 15:34 DS [id number] 05/21/25 15:38 DS Document 05/28/25 15:59 DS [id number] 05/28/25 16:00 DS Document 06/04/25 15:31 DS [id number] 06/04/25 15:34 DS (1) #1 LLE SUP - Post Debridement (cm) - Length => 2.5 - Post Debridement (cm) - Width => 2.0 - Post Debridement (cm) - Depth => 0.1 - Total Square (Post) (cm) => 5.00 - Area of Debridement (cm) - Length => 2.5 - Area of Debridement (cm) - Width => 2.0 - Total Square (Area) (cm) => 5.00 #2 LLE INF - Post Debridement (cm) - Length => 2.1 - Post Debridement (cm) - Width => 1.5 - Post Debridement (cm) - Depth => 0.1 - Total Square (Post) (cm) => 3.15 - Area of Debridement (cm) - Length => 2.1 - Area of Debridement (cm) - Width => 1.5 - Total Square (Area) (cm) => 3.15 05/07/25 05/14/25 05/21/25 15:51 08:48 15:34 Wound Center Nurse 2 #3 RLE CLUSTER -Time 15:53 08:48 -Correct Patient Yes Yes -Correct Side, Site, Position Yes Yes -Correct Procedure Yes -Procedure Performed Yes No -Type of Procedure Debridement -Clinical Debridement Subcutaneous -Tissue Removed Subcutaneous -Post Debridement (cm) - Length 5.7 -Post Debridement (cm) - Width 3.0 -Post Debridement (cm) - Depth 0.1 -Total Square (Post) (cm) 17.10 -Area of Debridement (cm) - Length 5.7 -Area of Debridement (cm) - Width 3.0 -Total Square (Area) (cm) 17.10 -Tunneling No -Undermining/Tunneling No -Circular Undermining No -Wound/Ulcer Outcome Not Healed Healed- Epithelialized -Ulcer Cleansing gauze gauze -Foul Odor after Cleansing No -Bioengineered Tissue No -Bleeding Controlled with Pressure -Treatment Response Procedure Tolerated Well -Debridement - Subq, 1st 20sq cm Yes -Debridement, SubQ, ea addt'l 20sq cm 1 or part thereof #1 LLE SUP -Time 15:54 08:49 15:34 -Correct Patient Yes Yes Yes -Correct Side, Site, Position Yes Yes Yes -Correct Procedure Yes Yes Yes -Procedure Performed Yes Yes Yes -Type of Procedure Debridement Debridement Debridement -Clinical Debridement Subcutaneous Subcutaneous Subcutaneous -Tissue Removed Subcutaneous Subcutaneous Subcutaneous -Post Debridement (cm) - Length 3.0 2.5 1.9 -Post Debridement (cm) - Width 2.0 2.0 0.8 -Post Debridement (cm) - Depth 0.1 0.1 0.1 -Total Square (Post) (cm) 6.00 5.00 1.52 -Area of Debridement (cm) - Length 3.0 2.5 1.9 -Area of Debridement (cm) - Width 2.0 2.0 0.8 -Total Square (Area) (cm) 6.00 5.00 1.52 -Tunneling No No No -Undermining/Tunneling No No No -Circular Undermining No No No -Wound/Ulcer Outcome Not Healed Not Healed Not Healed -Ulcer Cleansing gauze GAUZE -Foul Odor after Cleansing No No No -Bioengineered Tissue No No No -Bleeding Controlled with Pressure Pressure Pressure -Treatment Response Procedure Procedure Procedure Tolerated Well Tolerated Well Tolerated Well -Offloading No -Debridement - Subq, 1st 20sq cm No No No #2 LLE INF -Time 15:53 08:49 15:34 -Correct Patient Yes Yes Yes -Correct Side, Site, Position Yes Yes Yes -Correct Procedure Yes Yes Yes -Procedure Performed Yes Yes Yes -Type of Procedure Debridement Debridement Debridement -Clinical Debridement Subcutaneous Subcutaneous Subcutaneous -Tissue Removed Subcutaneous Subcutaneous Subcutaneous -Post Debridement (cm) - Length 2.5 2.1 1.7 -Post Debridement (cm) - Width 2.0 1.5 1.2 -Post Debridement (cm) - Depth 0.1 0.1 0.1 -Total Square (Post) (cm) 5.00 3.15 2.04 -Area of Debridement (cm) - Length 2.5 2.1 1.7 -Area of Debridement (cm) - Width 2.0 1.5 1.2 -Total Square (Area) (cm) 5.00 3.15 2.04 -Tunneling No No No -Undermining/Tunneling No No No -Circular Undermining No No No -Wound/Ulcer Outcome Not Healed Not Healed Not Healed -Ulcer Cleansing gauze GAUZE -Foul Odor after Cleansing No No No -Bioengineered Tissue No No No -Bleeding Controlled with Pressure Pressure Pressure -Treatment Response Procedure Procedure Procedure Tolerated Well Tolerated Well Tolerated Well -Debridement - Subq, 1st 20sq cm No Yes Yes Pain Scale: 0-10 Numeric Is Patient Pain Free? Yes Yes Yes 05/28/25 06/04/25 15:59 15:31 Wound Center Nurse 2 #3 RLE CLUSTER -Time -Correct Patient -Correct Side, Site, Position -Correct Procedure -Procedure Performed -Type of Procedure -Clinical Debridement -Tissue Removed -Post Debridement (cm) - Length -Post Debridement (cm) - Width -Post Debridement (cm) - Depth -Total Square (Post) (cm) -Area of Debridement (cm) - Length -Area of Debridement (cm) - Width -Total Square (Area) (cm) -Tunneling -Undermining/Tunneling -Circular Undermining -Wound/Ulcer Outcome -Ulcer Cleansing -Foul Odor after Cleansing -Bioengineered Tissue -Bleeding Controlled with -Treatment Response -Debridement - Subq, 1st 20sq cm -Debridement, SubQ, ea addt'l 20sq cm or part thereof #1 LLE SUP -Time 15:59 15:32 -Correct Patient Yes Yes -Correct Side, Site, Position Yes Yes -Correct Procedure Yes -Procedure Performed Yes No -Type of Procedure Debridement -Clinical Debridement Subcutaneous -Tissue Removed Subcutaneous -Post Debridement (cm) - Length 0.1 -Post Debridement (cm) - Width 0.1 -Post Debridement (cm) - Depth 0.1 -Total Square (Post) (cm) 0.01 -Area of Debridement (cm) - Length 0.1 -Area of Debridement (cm) - Width 0.1 -Total Square (Area) (cm) 0.01 -Tunneling No -Undermining/Tunneling No -Circular Undermining No -Wound/Ulcer Outcome Not Healed Healed- Epithelialized -Ulcer Cleansing -Foul Odor after Cleansing -Bioengineered Tissue -Bleeding Controlled with Pressure -Treatment Response Procedure Tolerated Well -Offloading -Debridement - Subq, 1st 20sq cm No #2 LLE INF -Time 15:59 15:31 -Correct Patient Yes Yes -Correct Side, Site, Position Yes Yes -Correct Procedure Yes Yes -Procedure Performed Yes Yes -Type of Procedure Debridement Debridement -Clinical Debridement Subcutaneous Subcutaneous -Tissue Removed Subcutaneous Subcutaneous -Post Debridement (cm) - Length 1.0 0.5 -Post Debridement (cm) - Width 0.6 0.4 -Post Debridement (cm) - Depth 0.1 0.1 -Total Square (Post) (cm) 0.60 0.20 -Area of Debridement (cm) - Length 1.0 0.5 -Area of Debridement (cm) - Width 0.6 0.4 -Total Square (Area) (cm) 0.60 0.20 -Tunneling No No -Undermining/Tunneling No No -Circular Undermining No No -Wound/Ulcer Outcome Not Healed Not Healed -Ulcer Cleansing gauze -Foul Odor after Cleansing No No -Bioengineered Tissue No No -Bleeding Controlled with Pressure Pressure -Treatment Response Procedure Tolerated Well -Debridement - Subq, 1st 20sq cm Yes Yes Pain Scale: 0-10 Numeric Is Patient Pain Free? Yes Yes WC - Nurse 3 - General Ulcer D/C NN Start: 05/07/25 15:23 Freq: Status: Active Protocol: Activity Type Activity Date Activity User E-sign Co-sign Detail Recorded Client Recorded Date Recorded By Document 05/07/25 16:00 KW [id number] 05/07/25 16:02 KW Document 05/08/25 16:37 DS [id number] 05/08/25 16:38 DS Document 05/14/25 09:13 BMF [id number] 05/14/25 09:14 BMF Document 05/17/25 12:55 DS [id number] 05/17/25 13:01 DS Document 05/21/25 15:43 KW [id number] 05/21/25 15:45 KW Document 05/28/25 16:16 KW [id number] 05/28/25 16:17 KW Document 06/04/25 15:42 BMF [id number] 06/04/25 15:43 BMF 05/07/25 05/08/25 05/14/25 16:00 16:37 09:13 Wound Care Center Nurse 3 #3 RLE CLUSTER -Other Dressing hydrogel -Primary Dressing Covered/Secured with Dry Gauze & Roll Gauze, Secured with Tape #1 LLE SUP -Ulcer Cleansing Rinsed/ Irrigated with Saline -Other Dressing hydrogel unna boot -Primary Dressing Covered/Secured with Dry Gauze & Roll Gauze, Secured with Tape #2 LLE INF -Ulcer Cleansing Rinsed/ Irrigated with Saline -Foul Odor after Cleansing -Primary Dressing Applied -Other Dressing hydrogel unna boot -Primary Dressing Covered/Secured with Dry Gauze & Roll Gauze, Secured with Tape -Aquacel AG 4x4 BLE -Multi-Layered Wrap Application Unna Boot - Bilateral -Tubular Bandage Single Layer -Size of Tubigrip Used Size E -Size E ($) 2 -Unna- Bilat (Qty applied) 1 LLE -Multi-Layered Wrap Application Multi-Layer Comp - Left ($) -Tubular Bandage -Size of Tubigrip Used -Size E ($) -Other -Unna- Left (Qty applied) -Multi-Layer Compression Left (Qty 1 applied) RLE -Multi-Layered Wrap Application Unna Boot - Right -Other -Unna- Right (Qty applied) 1 -Multi-Layer Compression Right (Qty applied) Treatment Response Procedure Tolerated Well Pain Scale: 0-10 Numeric Is Patient Pain Free? Yes Yes Yes WC - Visit Discharge Discharge Condition Stable Stable Stable Ambulatory Status Ambulatory Ambulatory Ambulatory Transportation Private Auto Private Auto Medication Reconcilliation completed & No provided to patient/care provider Clinical Summary of Care Provided Yes 05/17/25 05/21/25 05/28/25 12:55 15:43 16:16 Wound Care Center Nurse 3 #3 RLE CLUSTER -Other Dressing -Primary Dressing Covered/Secured with #1 LLE SUP -Ulcer Cleansing Soap and Water -Other Dressing AQUACEL AG aquacel ag MOISTENED moistened -Primary Dressing Covered/Secured with Dry Gauze Dry Gauze #2 LLE INF -Ulcer Cleansing Soap and Water -Foul Odor after Cleansing -Primary Dressing Applied Aquacel AG 4x4 Aquacel AG 4x4 -Other Dressing moisten aquacel ag -Primary Dressing Covered/Secured with Dry Gauze Dry Gauze & Roll Gauze, Secured with Tape -Aquacel AG 4x4 1 1 BLE -Multi-Layered Wrap Application -Tubular Bandage -Size of Tubigrip Used -Size E ($) -Unna- Bilat (Qty applied) LLE -Multi-Layered Wrap Application Unna Boot - Multi-Layer Left Comp - Left ($) -Tubular Bandage Double Layer -Size of Tubigrip Used Size E -Size E ($) 2 -Other -Unna- Left (Qty applied) 1 -Multi-Layer Compression Left (Qty 1 applied) RLE -Multi-Layered Wrap Application Multi-Layer Comp - Right ($ ) -Other PT OWN pt own COMPRESSION compression STOCKING stocking -Unna- Right (Qty applied) -Multi-Layer Compression Right (Qty 1 applied) Treatment Response Pain Scale: 0-10 Numeric Is Patient Pain Free? Yes Yes Yes WC - Visit Discharge Discharge Condition Stable Stable Stable Ambulatory Status Ambulatory Ambulatory Ambulatory Transportation Private Auto Private Auto Private Auto Medication Reconcilliation completed & No No provided to patient/care provider Clinical Summary of Care Provided Yes Yes 06/04/25 15:42 Wound Care Center Nurse 3 #3 RLE CLUSTER -Other Dressing -Primary Dressing Covered/Secured with #1 LLE SUP -Ulcer Cleansing -Other Dressing -Primary Dressing Covered/Secured with #2 LLE INF -Ulcer Cleansing Rinsed/ Irrigated with Saline -Foul Odor after Cleansing No -Primary Dressing Applied Aquacel AG 4x4 -Other Dressing -Primary Dressing Covered/Secured with Dry Gauze & Roll Gauze, Secured with Tape -Aquacel AG 4x4 1 BLE -Multi-Layered Wrap Application -Tubular Bandage -Size of Tubigrip Used -Size E ($) -Unna- Bilat (Qty applied) LLE -Multi-Layered Wrap Application -Tubular Bandage -Size of Tubigrip Used -Size E ($) -Other wearing own compression stockings -Unna- Left (Qty applied) -Multi-Layer Compression Left (Qty applied) RLE -Multi-Layered Wrap Application -Other -Unna- Right (Qty applied) -Multi-Layer Compression Right (Qty applied) Treatment Response Procedure Tolerated Well Pain Scale: 0-10 Numeric Is Patient Pain Free? Yes WC - Visit Discharge Discharge Condition Stable Ambulatory Status Ambulatory Transportation Private Auto Medication Reconcilliation completed & provided to patient/care provider Clinical Summary of Care Provided Charges/Coding Procedures Integumentary [id number]: [id number] Elida subq tissue 20 sq cm/< Assessment/Plan Assessment/Plan (1) Venous stasis ulcer: CODE(S): I83.009 - Varicose veins of unspecified lower extremity with ulcer of unspecified site; L97.909 - Non-pressure chronic ulcer of unspecified part of unspecified lower leg with unspecified severity QUALIFIERS: Venous stasis ulcer site: calf Varicose vein presence: without varicose veins Laterality: left Non-pressure ulcer stage: with fat layer exposed Qualified Code(s): I87.2 - Venous insufficiency (chronic) (peripheral); L97.222 - Non-pressure chronic ulcer of left calf with fat layer exposed (2) Venous stasis ulcer: CODE(S): I83.009 - Varicose veins of unspecified lower extremity with ulcer of unspecified site; L97.909 - Non-pressure chronic ulcer of unspecified part of unspecified lower leg with unspecified severity QUALIFIERS: Venous stasis ulcer site: calf Varicose vein presence: without varicose veins Laterality: right Non-pressure ulcer stage: with fat layer exposed Qualified Code(s): I87.2 - Venous insufficiency (chronic) (peripheral); L97.212 - Non-pressure chronic ulcer of right calf with fat layer exposed (3) Postphlebitic syndrome with both ulcer and inflammation: CODE(S): I87.039 - Postthrombotic syndrome with ulcer and inflammation of unspecified lower extremity (4) Venous stasis dermatitis of both lower extremities: CODE(S): I87.2 - Venous insufficiency (chronic) (peripheral) (5) Chronic venous insufficiency: CODE(S): I87.2 - Venous insufficiency (chronic) (peripheral) (6) Right leg swelling: CODE(S): M79.89 - Other specified soft tissue disorders (7) Left leg swelling: CODE(S): M79.89 - Other specified soft tissue disorders (8) Hypertriglyceridemia: CODE(S): E78.1 - Pure hyperglyceridemia (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 QUALIFIERS: Villalba's esophagus type: without dysplasia Qualified Code(s): K22.70 - Villalba's esophagus without dysplasia (10) NAFLD (nonalcoholic fatty liver disease): CODE(S): K76.0 - Fatty (change of) liver, not elsewhere classified (11) Thrombocytopenia: CODE(S): D69.6 - Thrombocytopenia, unspecified (12) Liver disease: CODE(S): K76.9 - Liver disease, unspecified (13) History of pulmonary embolism: CODE(S): Z86.711 - Personal history of pulmonary embolism (14) HTN (hypertension): CODE(S): I10 - Essential (primary) hypertension (15) Testicular cancer: CODE(S): C62.90 - Malignant neoplasm of unspecified testis, unspecified whether descended or undescended (16) Hypogonadism: (17) Obstructive sleep apnea: CODE(S): G47.33 - Obstructive sleep apnea (adult) (pediatric) (18) Hepatic fibrosis: CODE(S): K74.00 - Hepatic fibrosis, unspecified (19) Diabetes mellitus type 2, insulin dependent: CODE(S): E11.9 - Type 2 diabetes mellitus without complications; Z79.4 - rodent exterminator (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 The ulcerations appear to be related to chronic dependency and chronic venous insufficiency. He also appears to have symptoms consistent with postphlebitic syndrome with inflammation and ulceration. He has a history of pulmonary embolism in the past, for which an inferior vena cava filter was previously placed. Though not certain, it is presumed that he also has a history of deep vein thrombosis of the lower extremities. A lengthy discussion has been undertaken with the patient regarding the appropriate conservative means in the management of his chronic venous disease. Leg elevation has been advised. The patient has been instructed to elevate his lower extremities to heart level, or higher, as much as possible. Leg elevation is to be implemented during both daytime and nighttime hours. The patient has been encouraged to sleep on a flat mattress at night. The patient has been advised to refrain from prolonged, idle sitting and standing. Activity has been encouraged. The bene fit of implementing the calf muscle pumps has been described. 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 We are to continue the use of moistened Aquacel Ag topically to the ulceration on the left lower extremity, which will be applied on a daily basis. The patient has been instructed in the appropriate means of application. He has also been provided the product for use. The patient has obtained graduated compression stockings of 20 to 30 mmHg compression, which are to be donned bilaterally on a daily basis. The patient has been advised to optimize his nutritional intake, as well as his glycemic control. The patient's recent laboratory results from April 23, 2025, have been reviewed, and are as follows: White blood count 7.7, hemoglobin 11.5, hematocrit 36.8, platelets 97,000, sodium 140, potassium 3.8, chloride 101, BUN 30, creatinine 1.31, calcium 9.9, total bilirubin 0.93, AST 36, ALT 27, alkaline phosphatase 95, total protein 7.1, albumin 4.0. The patient indicates that Dr. Durham has ordered pneumatic mechanical compression pumps, which have been received, and are to be utilized several times daily. The patient is to return in 1 week for reevaluation. Total time: 24 minutes
== END 2025-06-06 23:59 | disposition home or self-care (01) ==
LOC: WC 15:00
PROVIDERS: PCP Family Medicine Geriatric Medicine; Referring Provider Family Medicine Geriatric Medicine; Visit Provider Surgery
DX: I83.212 Varicose veins of right lower extremity with both ulcer of calf and inflammation (principal); L97.222 Non-pressure chronic ulcer of left calf with fat layer exposed; L97.212 Non-pressure chronic ulcer of right calf with fat layer exposed; I83.222 Varicose veins of left lower extremity with both ulcer of calf and inflammation; Z68.42 Body mass index [BMI] 45.0-49.9, adult; E66.01 Morbid (severe) obesity due to excess calories; Z79.4 Long term (current) use of insulin; E11.59 Type 2 diabetes mellitus with other circulatory complications; E11.22 Type 2 diabetes mellitus with diabetic chronic kidney disease; N18.32 Chronic kidney disease, stage 3b; G47.33 Obstructive sleep apnea (adult) (pediatric); K22.70 Barrett's esophagus without dysplasia; Z87.891 Personal history of nicotine dependence; R60.0 Localized edema; K74.00 Hepatic fibrosis, unspecified; K76.0 Fatty (change of) liver, not elsewhere classified; D69.6 Thrombocytopenia, unspecified; Z86.711 Personal history of pulmonary embolism; E78.1 Pure hyperglyceridemia; I12.9 Hypertensive chronic kidney disease with stage 1 through stage 4 chronic kidney disease, or unspecified chronic kidney disease; Z79.84 Long term (current) use of oral hypoglycemic drugs; Z79.899 Other long term (current) drug therapy
CPT/HCPCS: 11042; 11045; 29580; 29581

== ENCOUNTER 2025-06-18 15:15 | Outpatient (RCR) | payer BC, SELFPAY ==
[2025-06-11 14:46] VITALS: BP 143/79; PULSE 94; RESP 18; TEMP 35.8
--- NOTE | 2025-06-12 09:11 | WC ---
PHOTO: TORRIE DE GUZMAN 06.11.25
--- NOTE | 2025-06-12 15:00 | HP.PCM_ITS ---
History of Present Illness Date of Service: 06/11/25 Chief Complaint: Chronic venous insufficiency with bilateral lower extremity venous stasis ulcerations History of Wound: This is a 59-year-old male who presented with severe venous stasis dermatitis in his lower extremities, as well as bilateral lower extremity venous stasis ulcerations. The patient had been treated by his primary care physician for suspected lower extremity cellulitis, with recent prescriptions for oral antibiotics. At the time of intake, the patient was taking Keflex and doxycycline orally. The patient experiences swelling and edema in both lower extremities. His ulcerations began as blisters several months prior to pre sentation, which subsequently developed into open ulcerations. A wound culture of the left leg was performed on April 26, 2025, which revealed very rare coag negative staph. The patient is obese, with a BMI of 45.6. 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 He suffers from chronic swelling and edema in his lower extremities. He sleeps in a chair at night. He has a history of pulmonary embolism, and has previously undergone placement of an inferior vena cava filter. According to the patient, the filter was subsequently removed. The patient suffers from multiple other pre-existing medical conditions, which are listed herein. He has a history of testicular cancer, for which he has undergone bilateral orchiectomy. [facility] Medical History (Updated 06/12/25 @ 15:[address] 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 Chronic kidney disease, stage 3b Diabetes mellitus type 2, insulin dependent Hepatic fibrosis Obstructive sleep apnea Hypogonadism Postphlebitic syndrome with both ulcer and inflammation Venous stasis ulcer Left leg swelling Right leg swelling Venous stasis dermatitis of both lower extremities Venous stasis ulcer Chronic venous insufficiency History of pulmonary embolism Wears glasses Insulin dependent diabetes mellitus Back pain Dietary restriction History of GI bleed Former smoker CPAP (continuous positive airway pressure) dependence Sleep apnea History of edema History of echocardiogram History of stress test HLD (hyperlipidemia) Nausea and vomiting Hypogonadism in male Diarrhea Allergic rhinitis Blood in stool Presence of inferior vena cava filter Testicular cancer Gastric ulcer HTN (hypertension) Pulmonary embolism Diabetes Lactic acidosis Syncope Home Medications ?Medication ?Instructions ?Recorded ?Last Taken ?Type metformin 1,000 mg tablet 1 tab PO BIDCM DM 03/24/18 0 12/24/20 History albuterol sulfate 90 mcg/actuation 90 mcg inhalation Q 4H PRN PRN 04/09/18 Unknown History aerosol inhaler wheezing/SOB testosterone 2 pump topical DAILY testicu lar ca 04/09/18 04/09/18 History insulin aspar prot-insulin aspart 30 unit subcut BID 0 02/22/23 Unknown History 100 unit/mL (70-30) subcutaneous pen (Novolog Mix 70-30FlexPen U-100) insulin glargine U-300 conc 300 240 unit subcut DAILY 02/22/23 Unknown History unit/mL (3 mL) subcutaneous pen (Toujeo Max U-300 SoloStar) losartan 100 mg tablet 100 mg PO DAILY 02/22/23 History rosuvastatin 40 mg tablet 40 mg PO DAILY 02/22/23 Unkn own History pantoprazole 40 mg tablet,delayed 40 mg PO DAILY 1 mon th #30 tabs 10/26/23 Unknown Rx release furosemide 40 mg tablet 40 mg PO DAILY 10/27/23 Unkn own History ipratropium bromide 42 mcg (0.06 2 spray intranasal TI D 10/27/23 Unknown History %) nasal spray cholecalciferol (vitamin D3) 1,250 1,250 mcg PO QWEEK 1 month #4 caps 07/17/24 Unknown Rx mcg (50,000 unit) capsule tirzepatide 2.5 mg/0.5 mL 2.5 mg subcut QWEEK 10/18/24 Unknown History subcutaneous pen injector (Edwin) fenofibrate nanocrystallized 48 mg 48 mg PO QHS 1 annalise h #30 tabs 10/19/24 Unknown Rx tablet icosapent ethyl 1 gram capsule 2 g (2 x 1 gram) PO BID 1 month 10/19/24 Unknown Rx #120 caps magnesium citrate 300 ml PO X1 #1 BOTTLE 12/14 Unknown Rx Allergy/AdvReac Type Severity Reaction Status Date / Time No Known Allergies Allergy Verified 04/30/25 14:06 Family History Mother Diabetes Sister Diabetes Brother Diabetes Father Cancer lung Surgical History Hx of appendectomy S/P insertion of IVC (inferior vena caval) filter History of back surgery History of orchiectomy, bilateral Social History Smoking Status: Former smoker Physical Exam Const alert, oriented x3, no apparent distress and well nourished Constitutional Narrative: The patient is morbidly obese. His BMI is 45.6 General Appearance: cooperative, comfortable, well kempt and well developed Orientation / Consciousness: awake, oriented to person, oriented to place and oriented to time Exam Limitations: no limitations HEENT normocephalic and head/scalp atraumatic Head and Scalp: normal to inspection, normocephalic and atraumatic Face and Sinus: normal facial exam Nose: external nose normal External Ear: external ears normal Teeth and Gingiva: poor dentition Eyes EOMs intact bilaterally General Eye: normal appearance of both eyes Resp normal respiratory effort, normal air movement, no retractions and no use of accessory muscles Effort and Inspection: able to speak in complete sentences Extremity General Extremity: Negative for clubbing or cyanosis Skin Wound Narrative: The swelling and edema in the patient's lower extremities is much improved, and has responded to conservative treatment measures and compression. The venous stasis dermatitis in the gaiter areas is also improved. A clustered ulceration in the right lower extremity remains healed and epithelialized. The superior ulceration on the anterolateral aspect of the distal left lower extremity remains healed and epithelialized. The inferior ulceration, which is the only remaining open ulceration, is much smaller in size, and healthy granulation tissue is noted. The ulceration appears to be nearly healed. There is a small amount of bioburden. Ulcer margins are well beveled. The ulceration is full- thickness, extending through all layers of the dermis and into the subcutaneous tissues. Dimensions are documented elsewhere. Neuro oriented x3, CN's II-XII intact bilaterally, moves all extremities, no focal motor deficits and no sensory deficits noted Sensorium / Orientation: awake, alert, oriented to person, oriented to place and oriented to time Speech: speech normal Psych Appearance: grossly normal and appropriate Attitude: calm Activity / Motor Behavior: appropriate eye contact Speech: normal speech Mood & Affect: euthymic mood Thought Process: normal thought process Thought Content: normal thought content Attention / Concentration: attention grossly intact Debridement Note Debridement Note No debridement was completed: No debridement was completed today Post-Debridement Measurements and Additional Note: Post-Debridement Measurements/Treatment WC - Nurse 1 - General Ulcer Assessment Start: 06/11/25 14:46 Freq: Status: Active Protocol: WC.SHAHLA Activity Type Activity Date Activity User E-sign Co-sign Detail Recorded Client Recorded Date Recorded By Document 06/11/25 14:46 KW [id number] 06/11/25 14:51 06/11/25 14:46 - Today's Visit Information Type of service Follow-up Visit (Physician/RN COMPLEX CARE ) Arrival Mode Ambulatory Patient Identification Verified (Name & Yes ) Vital Signs Temperature (97.8 F-99.1 F) 96.4 F L Temperature Source Temporal Pulse Rate (60-100) 94 Pulse Location Monitor Respiratory Rate (12-18) 18 Respiratory rate source Observation Oxygen Delivery Method Room Air Blood Pressure (90/60-120/80) 143/79 H Blood Pressure Mean 100 Source Monitor Position Sitting Blood Pressure Location Right Arm History Since Last Visit- (Skip if this is Patient's initial visit) Have you changed medications since your No last visit? Any new allergies or adverse reactions No Had a fall/change in ADL's that may No increase risk of falls Signs or symptoms of abuse and/or No neglect since last visit Have you been in the hospital since your No last visit? Has dressing in place as prescribed Yes Has compression in place as prescribed Yes Has offloadiing in place as prescribed N/A Experienced any changes in pain level or No management Left Footwear Regular Shoe Right Footwear Regular Shoe Pain Scale: 0-10 Numeric Is Patient Pain Free? Yes - Nurse 1 - General Ulcer Measurement Start: 06/11/25 14:46 Freq: Status: Active Protocol: Activity Type Activity Date Activity User E-sign Co-sign Detail Recorded Client Recorded Date Recorded By Document 06/11/25 14:46 KW [id number] 06/11/25 14:51 06/11/25 14:46 Wound Center Nurse 1 #2 LLE INF -Current Size (cm) - Length 0.1 -Current Size (cm) - Width 0.1 -Current Size (cm) - Depth 0 -Total Square Cm 0.01 -Date of Last Picture (Recall this 06/11/25 field) -Exudate Amt None Present -Wound Margin Distinct, Outline Attached -Granulation Amt Small (1-33%) -Granulation Quality [place] -Texture (Shawanda-wound Skin Appearance) Assessed -Moisture (Shawanda-wound Skin Appearance) Assessed -Color (Shawanda-wound Skin Appearance) Assessed, Hemosiderin Staining -Temperature (Shawanda-wound Skin No Abnormality Appearance) (Pt Warm) -Tenderness on Palpation (Shawanda-wound No Skin Appearance) -Ulcer Cleansing Rinsed/ Irrigated with Saline -Foul Odor after Cleansing No -Anesthetic Used 5% Lidocaine Gel - Nurse 2 - General Ulcer CM Notes Start: 06/11/25 14:46 Freq: Status: Active Protocol: Activity Type Activity Date Activity User E-sign Co-sign Detail Recorded Client Recorded Date Recorded By Document 06/11/25 15:30 DS [id number] 06/11/25 15:30 DS 06/11/25 15:30 Wound Center Nurse 2 -Time 15:30 -Correct Patient Yes -Correct Side, Site, Position Yes -Procedure Performed No -Post Debridement (cm) - Length 0.1 -Post Debridement (cm) - Width 0.1 -Post Debridement (cm) - Depth 0.1 -Total Square (Post) (cm) 0.01 -Area of Debridement (cm) - Length 0.1 -Area of Debridement (cm) - Width 0.1 -Total Square (Area) (cm) 0.01 -Tunneling No -Undermining/Tunneling No -Circular Undermining No -Wound/Ulcer Outcome Not Healed Pain Scale: 0-10 Numeric Is Patient Pain Free? Yes - Nurse 3 - General Ulcer D/C NN Start: 06/11/25 14:46 Freq: Status: Active Protocol: Activity Type Activity Date Activity User E-sign Co-sign Detail Recorded Client Recorded Date Recorded By Document 06/11/25 15:33 KW [id number] 06/11/25 15:34 KW 06/11/25 15:33 Wound Care Center Nurse 3 #2 LLE INF -Primary Dressing Applied C Hydrogel -Primary Dressing Covered/Secured with Dry Gauze, Secured with Tape -Hydrogel 1 BLE -Other pt own compression stockings Pain Scale: 0-10 Numeric Is Patient Pain Free? 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: CODE(S): L97.902 - Non-pressure chronic ulcer of unspecified part of unspecified lower leg with fat layer exposed QUALIFIERS: Laterality: left Qualified Code(s): L97.922 - Non- pressure chronic ulcer of unspecified part of left lower leg with fat layer exposed (2) Venous stasis ulcer: CODE(S): I83.009 - Varicose veins of unspecified lower extremity with ulcer of unspecified site; L97.909 - Non-pressure chronic ulcer of unspecified part of unspecified lower leg with unspecified severity QUALIFIERS: Venous stasis ulcer site: calf Varicose vein presence: without varicose veins Laterality: left Non-pressure ulcer stage: with fat layer exposed Qualified Code(s): I87.2 - Venous insufficiency (chronic) (peripheral); L97.222 - Non-pressure chronic ulcer of left calf with fat layer exposed (3) Venous stasis ulcer: CODE(S): I83.009 - Varicose veins of unspecified lower extremity with ulcer of unspecified site; L97.909 - Non-pressure chronic ulcer of unspecified part of unspecified lower leg with unspecified severity QUALIFIERS: Venous stasis ulcer site: calf Varicose vein presence: without varicose veins Laterality: right Non-pressure ulcer stage: with fat layer exposed Qualified Code(s): I87.2 - Venous insufficiency (chronic) (peripheral); L97.212 - Non-pressure chronic ulcer of right calf with fat layer exposed (4) Postphlebitic syndrome with both ulcer and inflammation: CODE(S): I87.039 - Postthrombotic syndrome with ulcer and inflammation of unspecified lower extremity (5) Venous stasis dermatitis of both lower extremities: CODE(S): I87.2 - Venous insufficiency (chronic) (peripheral) (6) Chronic venous insufficiency: CODE(S): I87.2 - Venous insufficiency (chronic) (peripheral) (7) Right leg swelling: CODE(S): M79.89 - Other specified soft tissue disorders (8) Left leg swelling: CODE(S): M79.89 - Other specified soft tissue disorders (9) Hypertriglyceridemia: CODE(S): E78.1 - Pure hyperglyceridemia (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): K22.70 - Villalba's esophagus without dysplasia QUALIFIERS: Villalba's esophagus type: without dysplasia Qualified Code(s): K22.70 - Villalba's esophagus without dysplasia (11) NAFLD (nonalcoholic fatty liver disease): CODE(S): K76.0 - Fatty (change of) liver, not elsewhere classified (12) Thrombocytopenia: CODE(S): D69.6 - Thrombocytopenia, unspecified (13) Liver disease: CODE(S): K76.9 - Liver disease, unspecified (14) History of pulmonary embolism: CODE(S): Z86.711 - Personal history of pulmonary embolism (15) HTN (hypertension): CODE(S): I10 - Essential (primary) hypertension (16) Testicular cancer: CODE(S): C62.90 - Malignant neoplasm of unspecified testis, unspecified whether descended or undescended (17) Hypogonadism: (18) Obstructive sleep apnea: CODE(S): G47.33 - Obstructive sleep apnea (adult) (pediatric) (19) Hepatic fibrosis: CODE(S): K74.00 - Hepatic fibrosis, unspecified (20) Diabetes mellitus type 2, insulin dependent: CODE(S): E11.9 - Type 2 diabetes mellitus without complications; 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 The ulcerations appear to be related to chronic dependency and chronic venous insufficiency. He also appears to have symptoms consistent with postphlebitic syndrome with inflammation and ulceration. He has a history of pulmonary embolism in the past, for which an inferior vena cava filter was p reviously placed. Though not certain, it is presumed that he also has a history of deep vein thrombosis of the lower extremities. A lengthy discussion has been undertaken with the patient regarding the appropriate conservative means in the management of his chronic venous disease. Leg elevation has been advised. The patient has been instructed to elevate his lower extremities to heart level, or higher, as much as possible. Leg elevation is to be implemented during both daytime and nighttime hours. The patient has been encouraged to sleep on a flat mattress at night. The patient has been advised to refrain from prolonged, idle sitting and standing. Activity has been encouraged. The benefit of implementing the calf muscle pumps has been described. 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 Because his left lower extremity ulceration is nearly healed, we are to transition to the use of collagen hydrogel topically, which is to be applied on a daily basis. The patient has been instructed in the appropriate means of application. The patient has obtained graduated compression stockings of 20 to 30 mmHg compression, which are to be donned bilaterally on a daily basis. The patient has been advised to optimize his nutritional intake, as well as his glycemic control. The patient's recent laboratory results from April 23, 2025, have been reviewed, and are as follows: White blood count 7.7, hemoglobin 11.5, hematocrit 36.8, platelets 97,000, sodium 140, potassium 3.8, chloride 101, BUN 30, creatinine 1.31, calcium 9.9, total bilirubin 0.93, AST 36, ALT 27, alkaline phosphatase 95, total protein 7.1, albumin 4.0. The patient indicates that Dr. Durham has ordered pneumatic mechanical compression pumps, which have been received, and are to be utilized several times daily. The patient is to return in 1 week for reevaluation. Total time: 25 minutes
[2025-06-18 15:05] VITALS: BP 142/70; PULSE 91; RESP 18; TEMP 36.3
--- NOTE | 2025-06-19 14:24 | HP.PCM_ITS ---
History of Present Illness Date of Service: 06/18/25 Chief Complaint: Chronic venous insufficiency with bilateral lower extremity venous stasis ulcerations History of Wound: This is a 59-year-old male who presented with severe venous stasis dermatitis in his lower extremities, as well as bilateral lower extremity venous stasis ulcerations. The patient had been treated by his primary care physician for suspected lower extremity cellulitis, with recent prescriptions for oral antibiotics. At the time of intake, the patient was taking Keflex and doxycycline orally. The patient experiences swelling and edema in both lower extremities. His ulcerations began as blisters several months prior to pre sentation, which subsequently developed into open ulcerations. A wound culture of the left leg was performed on April 26, 2025, which revealed very rare coag negative staph. The patient is obese, with a BMI of 45.6. 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 He suffers from chronic swelling and edema in his lower extremities. He sleeps in a chair at night. He has a history of pulmonary embolism, and has previously undergone placement of an inferior vena cava filter. According to the patient, the filter was subsequently removed. The patient suffers from multiple other pre-existing medical conditions, which are listed herein. He has a history of testicular cancer, for which he has undergone bilateral orchiectomy. 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 Chronic kidney disease, stage 3b Diabetes mellitus type 2, insulin dependent Hepatic fibrosis Obstructive sleep apnea Hypogonadism Postphlebitic syndrome with both ulcer and inflammation Venous stasis ulcer Left leg swelling Right leg swelling Venous stasis dermatitis of both lower extremities Venous stasis ulcer Chronic venous insufficiency History of pulmonary embolism Wears glasses Insulin dependent diabetes mellitus Back pain Dietary restriction History of GI bleed Former smoker CPAP (continuous positive airway pressure) dependence Sleep apnea History of edema History of echocardiogram History of stress test HLD (hyperlipidemia) Nausea and vomiting Hypogonadism in male Diarrhea Allergic rhinitis Blood in stool Presence of inferior vena cava filter Testicular cancer Gastric ulcer HTN (hypertension) Pulmonary embolism Diabetes Lactic acidosis Syncope Home Medications ?Medication ?Instructions ?Recorded ?Last Taken ?Type metformin 1,000 mg tablet 1 tab PO BIDCM DM 03/24/18 0 12/24/20 History albuterol sulfate 90 mcg/actuation 90 mcg inhalation Q 4H PRN PRN 04/09/18 Unknown History aerosol inhaler wheezing/SOB testosterone 2 pump topical DAILY testicu lar ca 04/09/18 04/09/18 History insulin aspar prot-insulin aspart 30 unit subcut BID 0 02/22/23 Unknown History 100 unit/mL (70-30) subcutaneous pen (Novolog Mix 70-30FlexPen U-100) insulin glargine U-300 conc 300 240 unit subcut DAILY 02/22/23 Unknown History unit/mL (3 mL) subcutaneous pen (Toujeo Max U-300 SoloStar) losartan 100 mg tablet 100 mg PO DAILY 02/22/23 History rosuvastatin 40 mg tablet 40 mg PO DAILY 02/22/23 Unkn own History pantoprazole 40 mg tablet,delayed 40 mg PO DAILY 1 mon th #30 tabs 10/26/23 Unknown Rx release furosemide 40 mg tablet 40 mg PO DAILY 10/27/23 Unkn own History ipratropium bromide 42 mcg (0.06 2 spray intranasal TI D 10/27/23 Unknown History %) nasal spray cholecalciferol (vitamin D3) 1,250 1,250 mcg PO QWEEK 1 month #4 caps 07/17/24 Unknown Rx mcg (50,000 unit) capsule tirzepatide 2.5 mg/0.5 mL 2.5 mg subcut QWEEK 10/18/24 Unknown History subcutaneous pen injector (Edwin) fenofibrate nanocrystallized 48 mg 48 mg PO QHS 1 annalise h #30 tabs 10/19/24 Unknown Rx tablet icosapent ethyl 1 gram capsule 2 g (2 x 1 gram) PO BID 1 month 10/19/24 Unknown Rx #120 caps magnesium citrate 300 ml PO X1 #1 BOTTLE 12/14 Unknown Rx Allergy/AdvReac Type Severity Reaction Status Date / Time No Known Allergies Allergy Verified 04/30/25 14:06 Family History Mother Diabetes Sister Diabetes Brother Diabetes Father Cancer lung Surgical History Hx of appendectomy S/P insertion of IVC (inferior vena caval) filter History of back surgery History of orchiectomy, bilateral Social History Smoking Status: Former smoker Vital Signs Vital Signs Vital Signs: 06/18/25 15:05 Temperature 97.4 F L Temperature Source Temporal Pulse Rate 91 Respiratory Rate 18 Blood Pressure 142/70 H Blood Pressure Mean 94 Blood Pressure Source Monitor Blood Pressure Position Sitting Blood Pressure Location Left Arm Oxygen Delivery Method Room Air Physical Exam Const alert, oriented x3, no apparent distress and well nourished Constitutional Narrative: The patient is morbidly obese. His BMI is 45.6 General Appearance: cooperative, comfortable, well kempt and well developed Orientation / Consciousness: awake, oriented to person, oriented to place and oriented to time Exam Limitations: no limitations HEENT normocephalic and head/scalp atraumatic Head and Scalp: normal to inspection, normocephalic and atraumatic Face and Sinus: normal facial exam Nose: external nose normal External Ear: external ears normal Teeth and Gingiva: poor dentition Eyes EOMs intact bilaterally General Eye: normal appearance of both eyes Resp normal respiratory effort, normal air movement, no retractions and no use of accessory muscles Effort and Inspection: able to speak in complete sentences Extremity General Extremity: Negative for clubbing or cyanosis Skin Wound Narrative: The swelling and edema in the patient's lower extremities is much improved, and has responded to conservative treatment measures and compression. The venous stasis dermatitis in the gaiter areas is also improved. A clustered ulceration in the right lower extremity remains healed and epithelialized. The ulcerations of the patient's left lower extremity are also now completely healed and epithelialized as well. There are no remaining open ulcerations. Neuro oriented x3, CN's II-XII intact bilaterally, moves all extremities, no focal motor deficits and no sensory deficits noted Sensorium / Orientation: awake, alert, oriented to person, oriented to place and oriented to time Speech: speech normal Psych Appearance: grossly normal and appropriate Attitude: calm Activity / Motor Behavior: appropriate eye contact Speech: normal speech Mood & Affect: euthymic mood Thought Process: normal thought process Thought Content: normal thought content Attention / Concentration: attention grossly intact Debridement Note Debridement Note No debridement was completed: No debridement was completed today (There are no open wounds or ulcerations.) Post-Debridement Measurements and Additional Note: Post-Debridement Measurements/Treatment WC - Nurse 1 - General Ulcer Assessment Start: 06/11/25 14:46 Freq: Status: Active Protocol: JENY Activity Type Activity Date Activity User E-sign Co-sign Detail Recorded Client Recorded Date Recorded By Document 06/11/25 14:46 [id number] 06/11/25 14:51 Document 06/18/25 15:05 [facility] [id number] 06/18/25 15:07 [facility] 06/11/25 06/18/25 14:46 15:05 - Today's Visit Information Type of service Follow-up Visit Follow-up Visit (Physician/INVESTIGATOR VICE (Physician/INVESTIGATOR VICE ) ) Arrival Mode Ambulatory Ambulatory Transfer Assistance None Patient Identification Verified (Name & Yes Yes ) Patient Requires Transmission-Based No Precautions Vital Signs Temperature (97.8 F-99.1 F) 96.4 F L 97.4 F L Temperature Source Temporal Temporal Pulse Rate (60-100) 94 91 Pulse Location Monitor Monitor Respiratory Rate (12-18) 18 18 Respiratory rate source Observation Observation Oxygen Delivery Method Room Air Room Air Blood Pressure (90/60-120/80) 143/79 H 142/70 H Blood Pressure Mean 100 94 Source Monitor Monitor Position Sitting Sitting Blood Pressure Location Right Arm Left Arm History Since Last Visit- (Skip if this is Patient's initial visit) Have you changed medications since your No No last visit? Any new allergies or adverse reactions No No Had a fall/change in ADL's that may No No increase risk of falls Signs or symptoms of abuse and/or No No neglect since last visit Have you been in the hospital since your No No last visit? Has dressing in place as prescribed Yes Has compression in place as prescribed Yes Yes Has offloadiing in place as prescribed N/A Experienced any changes in pain level or No management Left Footwear Regular Shoe Diabetic Shoe Right Footwear Regular Shoe Diabetic Shoe Pain Scale: 0-10 Numeric Is Patient Pain Free? Yes Yes - Nurse 1 - General Ulcer Measurement Start: 06/11/25 14:46 Freq: Status: Active Protocol: Activity Type Activity Date Activity User E-sign Co-sign Detail Recorded Client Recorded Date Recorded By Document 06/11/25 14:46 KW [id number] 06/11/25 14:51 Document 06/18/25 15:05 [facility] [id number] 06/18/25 15:07 [facility] 06/11/25 06/18/25 14:46 15:05 Wound Center Nurse 1 #2 LLE INF -Combined with other wound No -Current Size (cm) - Length 0.1 0.1 -Current Size (cm) - Width 0.1 0.1 -Current Size (cm) - Depth 0 0.1 -Total Square Cm 0.01 0.01 -Date of Last Picture (Recall this 06/11/25 06/18/25 field) -Epithelialization Large 67-100% -Exudate Amt None Present -Wound Margin Distinct, Outline Attached -Granulation Amt Small (1-33%) -Granulation Quality Marlin -Texture (Shawanda-wound Skin Appearance) Assessed Assessed -Moisture (Shawanda-wound Skin Appearance) Assessed Assessed -Color (Shawanda-wound Skin Appearance) Assessed, Assessed Hemosiderin Staining -Temperature (Shawanda-wound Skin No Abnormality No Abnormality Appearance) (Pt Warm) (Pt Warm) -Tenderness on Palpation (Shawanda-wound No No Skin Appearance) -Ulcer Cleansing Rinsed/ Irrigated with Saline -Foul Odor after Cleansing No -Anesthetic Used 5% Lidocaine Gel - Nurse 2 - General Ulcer CM Notes Start: 06/11/25 14:46 Freq: Status: Active Protocol: Activity Type Activity Date Activity User E-sign Co-sign Detail Recorded Client Recorded Date Recorded By Document 06/11/25 15:30 [id number] 06/11/25 15:30 Document 06/18/25 15:10 [id number] 06/18/25 15:11 06/11/25 06/18/25 15:30 15:10 Wound Center Nurse 2 #2 LLE INF -Time 15:30 -Correct Patient Yes Yes -Correct Side, Site, Position Yes No -Correct Procedure No -Procedure Performed No No -Post Debridement (cm) - Length 0.1 0 -Post Debridement (cm) - Width 0.1 0 -Post Debridement (cm) - Depth 0.1 0 -Total Square (Post) (cm) 0.01 0 -Area of Debridement (cm) - Length 0.1 0 -Area of Debridement (cm) - Width 0.1 0 -Total Square (Area) (cm) 0.01 0 -Tunneling No -Undermining/Tunneling No -Circular Undermining No -Wound/Ulcer Outcome Not Healed Healed- Epithelialized Pain Scale: 0-10 Numeric Is Patient Pain Free? Yes Yes - Nurse 3 - General Ulcer D/C NN Start: 06/11/25 14:46 Freq: Status: Active Protocol: Activity Type Activity Date Activity User E-sign Co-sign Detail Recorded Client Recorded Date Recorded By Document 06/11/25 15:33 KW [id number] 06/11/25 15:34 KW Document 06/18/25 15:11 JF [id number] 06/18/25 15:12 JF 06/11/25 06/18/25 15:33 15:11 Wound Care Center Nurse 3 #2 LLE INF -Primary Dressing Applied C Hydrogel -Primary Dressing Covered/Secured with Dry Gauze, Secured with Tape -Hydrogel 1 BLE -Other pt own compression stockings Pain Scale: 0-10 Numeric Is Patient Pain Free? 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: CODE(S): L97.902 - Non-pressure chronic ulcer of unspecified part of unspecified lower leg with fat layer exposed QUALIFIERS: Laterality: left Qualified Code(s): L97.922 - Non- pressure chronic ulcer of unspecified part of left lower leg with fat layer exposed (2) Venous stasis ulcer: CODE(S): I83.009 - Varicose veins of unspecified lower extremity with ulcer of unspecified site; L97.909 - Non-pressure chronic ulcer of unspecified part of unspecified lower leg with unspecified severity QUALIFIERS: Venous stasis ulcer site: calf Varicose vein presence: without varicose veins Laterality: left Non-pressure ulcer stage: with fat layer exposed Qualified Code(s): I87.2 - Venous insufficiency (chronic) (peripheral); L97.222 - Non-pressure chronic ulcer of left calf with fat layer exposed (3) Venous stasis ulcer: CODE(S): I83.009 - Varicose veins of unspecified lower extremity with ulcer of unspecified site; L97.909 - Non-pressure chronic ulcer of unspecified part of unspecified lower leg with unspecified severity QUALIFIERS: Venous stasis ulcer site: calf Varicose vein presence: without varicose veins Laterality: right Non-pressure ulcer stage: with fat layer exposed Qualified Code(s): I87.2 - Venous insufficiency (chronic) (peripheral); L97.212 - Non-pressure chronic ulcer of right calf with fat layer exposed (4) Postphlebitic syndrome with both ulcer and inflammation: CODE(S): I87.039 - Postthrombotic syndrome with ulcer and inflammation of unspecified lower extremity (5) Venous stasis dermatitis of both lower extremities: CODE(S): I87.2 - Venous insufficiency (chronic) (peripheral) (6) Chronic venous insufficiency: CODE(S): I87.2 - Venous insufficiency (chronic) (peripheral) (7) Right leg swelling: CODE(S): M79.89 - Other specified soft tissue disorders (8) Left leg swelling: CODE(S): M79.89 - Other specified soft tissue disorders (9) Hypertriglyceridemia: CODE(S): E78.1 - Pure hyperglyceridemia (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): K22.70 - Villalba's esophagus without dysplasia QUALIFIERS: Villalba's esophagus type: without dysplasia Qualified Code(s): K22.70 - Villalba's esophagus without dysplasia (11) NAFLD (nonalcoholic fatty liver disease): CODE(S): K76.0 - Fatty (change of) liver, not elsewhere classified (12) Thrombocytopenia: CODE(S): D69.6 - Thrombocytopenia, unspecified (13) Liver disease: CODE(S): K76.9 - Liver disease, unspecified (14) History of pulmonary embolism: CODE(S): Z86.711 - Personal history of pulmonary embolism (15) HTN (hypertension): CODE(S): I10 - Essential (primary) hypertension (16) Testicular cancer: CODE(S): C62.90 - Malignant neoplasm of unspecified testis, unspecified whether descended or undescended (17) Hypogonadism: (18) Obstructive sleep apnea: CODE(S): G47.33 - Obstructive sleep apnea (adult) (pediatric) (19) Hepatic fibrosis: CODE(S): K74.00 - Hepatic fibrosis, unspecified (20) Diabetes mellitus type 2, insulin dependent: CODE(S): E11.9 - Type 2 diabetes mellitus without complications; Z79.4 - long term (current) use of 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 The ulcerations appeared to be related to chronic dependency and chronic venous insufficiency. He also appears to have symptoms consistent with postphlebitic syndrome with inflammation and ulceration. He has a history of pulmonary embolism in the past, for which an inferior vena cava filter was previously placed. Though not certain, it is presumed that he also has a history of deep vein thrombosis of the lower extremities. A lengthy discussion has been undertaken with the patient regarding the appropriate conservative means in the management of his chronic venous disease. Leg elevation has been advised. The patient has been instructed to elevate his lower extremities to heart level, or higher, as much as possible. Leg elevation is to be implemented during both daytime and nighttime hours. The patient has been encouraged to sleep on a flat mattress at night. The patient has been advised to refrain from prolonged, idle sitting and standing. Activity has been encouraged. The bowen efit of implementing the calf muscle pumps has been described. The patient has obtained graduated compression stockings of 20 to 30 mmHg compression, which are to be donned bilaterally on a daily basis. In addition, the patient has acquired pneumatic mechanical, pneumatic compression pumps, and has been encouraged to use at least twice or 3 times daily. All lower extremity ulcerations are now healed and epithelialized. Therefore, the patient is to be discharged, and will follow-up henceforth on an as-needed basis. 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 Total time: 24 minutes
--- NOTE | 2025-06-20 09:25 | WC ---
PHOTO-LLE 06/18/25
== END 2025-07-04 07:50 | disposition home or self-care (01) ==
LOC: WC 15:15
PROVIDERS: PCP Family Medicine Geriatric Medicine; Referring Provider Family Medicine Geriatric Medicine; Visit Provider Surgery
DX: I83.212 Varicose veins of right lower extremity with both ulcer of calf and inflammation (principal); L97.212 Non-pressure chronic ulcer of right calf with fat layer exposed; L97.222 Non-pressure chronic ulcer of left calf with fat layer exposed; I83.222 Varicose veins of left lower extremity with both ulcer of calf and inflammation; Z68.42 Body mass index [BMI] 45.0-49.9, adult; E66.01 Morbid (severe) obesity due to excess calories; E11.22 Type 2 diabetes mellitus with diabetic chronic kidney disease; E11.59 Type 2 diabetes mellitus with other circulatory complications; Z79.4 Long term (current) use of insulin; N18.32 Chronic kidney disease, stage 3b; K22.70 Barrett's esophagus without dysplasia; D69.6 Thrombocytopenia, unspecified; R60.0 Localized edema; E78.1 Pure hyperglyceridemia; I12.9 Hypertensive chronic kidney disease with stage 1 through stage 4 chronic kidney disease, or unspecified chronic kidney disease; Z86.711 Personal history of pulmonary embolism; K74.00 Hepatic fibrosis, unspecified; Z87.891 Personal history of nicotine dependence; G47.33 Obstructive sleep apnea (adult) (pediatric); K76.0 Fatty (change of) liver, not elsewhere classified; Z79.84 Long term (current) use of oral hypoglycemic drugs; Z79.899 Other long term (current) drug therapy
CPT/HCPCS: 99213; G0463

== ENCOUNTER 2025-07-16 15:06 | Outpatient (RCR) | payer BC, SELFPAY ==
[2025-07-16 15:34] VITALS: BP 170/89; PULSE 87; RESP 18; TEMP 36.3; BMI 44.4
--- NOTE | 2025-07-17 09:27 | WC ---
PHOTO-RIGHT LOWER MEDIAL SILVA 07/16/25
--- NOTE | 2025-07-18 15:00 | HP.PCM_ITS ---
History of Present Illness Date of Service: 07/16/25 Chief Complaint: Chronic venous insufficiency with right pretibial lower e xtremity venous stasis ulceration History of Wound: This is a 59-year-old male who originally presented with severe venous stasis dermatitis in his lower extremities, as well as bilateral lower extremity venous stasis ulcerations. The patient had been treated by his primary care physician for suspected lower extremity cellulitis, with recent prescriptions for oral antibiotics. At the time of intake, the patient had been taking Keflex and doxycycline orally. The patient experiences chronic swelling and edema in both lower extremities. His ulcerations had begun as blisters several months prior to presentation, which subsequently developed into open ulcerations. A wound culture of the left leg had been performed on April 26, 2025, which revealed very rare coag negative staph. The patient is obese, with a BMI of 45.6. 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 He suffers from chronic swelling and edema in his lower extremities. He sleeps in a chair at night. He has a history of pulmonary embolism, and has previously undergone placement of an inferior vena cava filter. According to the patient, the filter was subsequently removed. The patient suffers from multiple other pre-existing medical conditions, which are listed herein. He has a history of testicular cancer, for which he has undergone bilateral orchiectomy. The patient was treated at the [facility] for several weeks, and healing of his lower extremity ulcerations were subsequently achieved. He was subsequently dis charged on June 18, 2025, at which time graduated compression stockings of 20 to 30 mmHg compression had been obtained, and the patient was to have donned on a daily basis. He also has in his position pneumatic mechanical compression pumps, and had been encouraged to use 2 or 3 times daily. The patient returned at this time after having developed an ulceration on his right pretibial surface approximately 1 week prior to admission. The ulceration has initiated as a blister, which subsequently developed into an open ulceration. He noted at this repeat admission that he has recently been working enhanced hours at his factory job, often at 10-hour shifts, 5 days weekly. Pneumatic mechanical compression pumps have only be used once daily. 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 Chronic kidney disease, stage 3b Diabetes mellitus type 2, insulin dependent Hepatic fibrosis Obstructive sleep apnea Hypogonadism Postphlebitic syndrome with both ulcer and inflammation Venous stasis ulcer Left leg swelling Right leg swelling Venous stasis dermatitis of both lower extremities Venous stasis ulcer Chronic venous insufficiency History of pulmonary embolism Wears glasses Insulin dependent diabetes mellitus Back pain Dietary restriction History of GI bleed Former smoker CPAP (continuous positive airway pressure) dependence Sleep apnea History of edema History of echocardiogram History of stress test HLD (hyperlipidemia) Nausea and vomiting Hypogonadism in male Diarrhea Allergic rhinitis Blood in stool Presence of inferior vena cava filter Testicular cancer Gastric ulcer HTN (hypertension) Pulmonary embolism Diabetes Lactic acidosis Syncope Home Medications ?Medication ?Instructions ?Recorded ?Last Taken ?Type metformin 1,000 mg tablet 1 tab PO BIDCM DM 03/24/18 0 12/24/20 History testosterone 2 pump topical DAILY testicu lar ca 04/09/18 04/09/18 History insulin aspar prot-insulin aspart 30 unit subcut TID 0 02/22/23 Unknown History 100 unit/mL (70-30) subcutaneous pen (Novolog Mix 70-30FlexPen U-100) insulin glargine U-300 conc 300 240 unit subcut DAILY 02/22/23 Unknown History unit/mL (3 mL) subcutaneous pen (Toujeo Max U-300 SoloStar) losartan 100 mg tablet 50 mg PO DAILY 02/22/2306/08 History rosuvastatin 40 mg tablet 40 mg PO DAILY 02/22/23 Unkn own History pantoprazole 40 mg tablet,delayed 40 mg PO DAILY 1 tue #30 tabs 10/26/23 Unknown Rx release ipratropium bromide 42 mcg (0.06 2 spray intranasal TI D 10/27/23 Unknown History %) nasal spray tirzepatide 2.5 mg/0.5 mL 10 mg subcut QWEEK 10/18/24 Unknown History subcutaneous pen injector (Edwin) fenofibrate nanocrystallized 48 mg 48 mg PO QHS 1 annalise h #30 tabs 10/19/24 Unknown Rx tablet icosapent ethyl 1 gram capsule 2 g (2 x 1 gram) PO BID 1 month 10/19/24 Unknown Rx #120 caps tirzepatide 10 mg/0.5 mL mg subcut QWEEK 09/09/25 Unk nown History subcutaneous pen injector (Mounjaro) Allergy/AdvReac Type Severity Reaction Status Date / Time No Known Allergies Allergy Verified 07/16/25 15:45 Family History Mother Diabetes Sister Diabetes Brother Diabetes Father Cancer lung Surgical History Hx of appendectomy S/P insertion of IVC (inferior vena caval) filter History of back surgery History of orchiectomy, bilateral Social History Smoking Status: Former smoker Vital Signs Vital Signs Vital Signs: Weight Weight: 292 lb Body Mass Index (BMI) 44.4 Physical Exam Const alert, oriented x3, no apparent distress and well nourished Constitutional Narrative: The patient is morbidly obese. His BMI is 45.6 General Appearance: cooperative, comfortable, well kempt and well developed Orientation / Consciousness: awake, oriented to person, oriented to place and oriented to time Exam Limitations: no limitations HEENT normocephalic and head/scalp atraumatic Head and Scalp: normal to inspection, normocephalic and atraumatic Face and Sinus: normal facial exam Nose: external nose normal External Ear: external ears normal Teeth and Gingiva: poor dentition Eyes EOMs intact bilaterally General Eye: normal appearance of both eyes Resp normal respiratory effort, normal air movement, no retractions and no use of accessory muscles Effort and Inspection: able to speak in complete sentences Extremity General Extremity: Negative for clubbing or cyanosis Skin Wound Narrative: The ulceration on the patient's right pretibial surface, for which he presented today, is now completely healed and epithelialized. There is very little swelling and edema in the patient's lower extremities, though swelling is noted bilaterally on the dorsum of each foot. The gaiter areas are relatively devoid of venous stasis dermatitis and associated changes. Neuro oriented x3, CN's II-XII intact bilaterally, moves all extremities, no focal motor deficits and no sensory deficits noted Sensorium / Orientation: awake, alert, oriented to person, oriented to place and oriented to time Speech: speech normal Psych Appearance: grossly normal and appropriate Attitude: calm Activity / Motor Behavior: appropriate eye contact Speech: normal speech Mood & Affect: euthymic mood Thought Process: normal thought process Thought Content: normal thought content Attention / Concentration: attention grossly intact Debridement Note Debridement Note No debridement was completed: No debridement was completed today Post-Debridement Measurements and Additional Note: Post-Debridement Measurements/Treatment [facility] Nurse 1 - General Ulcer Assessment Start: 07/16/25 15:34 Freq: Status: Active Protocol: JENY Activity Type Activity Date Activity User E-sign Co-sign Detail Recorded Client Recorded Date Recorded By Document 07/16/25 15:34 [facility] [id number] 07/16/25 15:44 [facility] 07/16/25 15:34 - Today's Visit Information Type of service Initial Visit Arrival Mode Ambulatory Transfer Assistance None Patient Identification Verified (Name & Yes ) Patient Requires Transmission-Based No Precautions Safety Precautions NA Height and Weight Height 5 ft 8 in Weight 292 lb Weight in Pounds 292.0 lbs Weight Measurement Method Stated by Patient Body Mass Index (BMI) 44.4 BMI Classification Obese Vital Signs Temperature (97.8 F-99.1 F) 97.3 F L Temperature Source Temporal Pulse Rate (60-100) 87 Pulse Location Monitor Respiratory Rate (12-18) 18 Respiratory rate source Observation Blood Pressure (90/60-120/80) 170/89 H Blood Pressure Mean 116 Source Monitor Position Sitting Blood Pressure Location Left Arm History Since Last Visit- (Skip if this is Patient's initial visit) Left Footwear Regular Shoe Right Footwear Regular Shoe Pain Scale: 0-10 Numeric Is Patient Pain Free? Yes [facility] Nurse 1 - General Ulcer Measurement Start: 07/16/25 15:34 Freq: Status: Active Protocol: Activity Type Activity Date Activity User E-sign Co-sign Detail Recorded Client Recorded Date Recorded By Document 07/16/25 15:34 [facility] [id number] 07/16/25 15:44 [facility] 07/16/25 15:34 Wound Center Nurse 1 #4- R LOWER MEDIAL SILVA -Combined with other wound No -Current Size (cm) - Length 0.1 -Current Size (cm) - Width 0.1 -Current Size (cm) - Depth 0.1 -Total Square Cm 0.01 -Date of Last Picture (Recall this 07/16/25 field) -Photo Taken Yes -Tunneling No -Undermining/Tunneling No -Circular Undermining No -Texture (Shawanda-wound Skin Appearance) Assessed -Moisture (Shawanda-wound Skin Appearance) Assessed -Color (Shawanda-wound Skin Appearance) Assessed -Temperature (Shawanda-wound Skin No Abnormality Appearance) (Pt Warm) -Tenderness on Palpation (Shawanda-wound No Skin Appearance) -Ulcer Cleansing Rinsed/ Irrigated with Saline -Foul Odor after Cleansing No -Anesthetic Used 5% Lidocaine Gel -Wound Comment(s) PER PT, STARTED A BLISTER, DRAINING. APPEARS DRY AND INTACT AT THIS TIME Lower Limb Edema Present Yes Right Calf (cm) 42 Right Ankle (cm) 22.7 Left Calf (cm) 42.3 Left Ankle (cm) 22.4 - Nurse 2 - General Ulcer CM Notes Start: 07/16/25 15:34 Freq: Status: Active Protocol: Activity Type Activity Date Activity User E-sign Co-sign Detail Recorded Client Recorded Date Recorded By Document 07/16/25 16:25 DS [id number] 07/16/25 16:26 DS 07/16/25 16:25 Wound Center Nurse 2 #4- R LOWER MEDIAL SILVA -Time 16:25 -Correct Patient Yes -Correct Side, Site, Position Yes -Procedure Performed No -Wound/Ulcer Outcome Healed- Epithelialized Pain Scale: 0-10 Numeric Is Patient Pain Free? Yes - Nurse 3 - General Ulcer D/C NN Start: 07/16/25 15:34 Freq: Status: Active Protocol: Activity Type Activity Date Activity User E-sign Co-sign Detail Recorded Client Recorded Date Recorded By Document 07/16/25 16:29 DS [id number] 07/16/25 16:30 DS 07/16/25 16:29 Wound Care Center Nurse 3 #4- R LOWER MEDIAL SILVA -Primary Dressing Covered/Secured with Dry Gauze, Secured with Tape -Wound Comment(s) PERSONAL COMPRESSION SOCKS Pain Scale: 0-10 Numeric Is Patient Pain Free? 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: CODE(S): L97.902 - Non-pressure chronic ulcer of unspecified part of unspecified lower leg with fat layer exposed QUALIFIERS: Laterality: right Qualified Code(s): L97.912 - Non- pressure chronic ulcer of unspecified part of right lower leg with fat layer exposed (2) Venous stasis ulcer: CODE(S): I83.009 - Varicose veins of unspecified lower extremity with ulcer of unspecified site; L97.909 - Non-pressure chronic ulcer of unspecified part of unspecified lower leg with unspecified severity QUALIFIERS: Venous stasis ulcer site: calf Varicose vein presence: without varicose veins Laterality: right Non-pressure ulcer stage: limited to breakdown of skin Qualified Code(s): I87.2 - Venous insufficiency (chronic) (peripheral); L97.211 - Non-pressure chronic ulcer of right calf limited to breakdown of skin (3) Postphlebitic syndrome with both ulcer and inflammation: CODE(S): I87.039 - Postthrombotic syndrome with ulcer and inflammation of unspecified lower extremity (4) Venous stasis dermatitis of both lower extremities: CODE(S): I87.2 - Venous insufficiency (chronic) (peripheral) (5) Chronic venous insufficiency: CODE(S): I87.2 - Venous insufficiency (chronic) (peripheral) (6) Right leg swelling: CODE(S): M79.89 - Other specified soft tissue disorders (7) Left leg swelling: CODE(S): M79.89 - Other specified soft tissue disorders (8) Hypertriglyceridemia: CODE(S): E78.1 - Pure hyperglyceridemia (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 QUALIFIERS: Villalba's esophagus type: without dysplasia Qualified Code(s): K22.70 - Villalba's esophagus without dysplasia (10) NAFLD (nonalcoholic fatty liver disease): CODE(S): K76.0 - Fatty (change of) liver, not elsewhere classified (11) Thrombocytopenia: CODE(S): D69.6 - Thrombocytopenia, unspecified (12) Liver disease: CODE(S): K76.9 - Liver disease, unspecified (13) History of pulmonary embolism: CODE(S): Z86.711 - Personal history of pulmonary embolism (14) HTN (hypertension): CODE(S): I10 - Essential (primary) hypertension (15) Testicular cancer: CODE(S): C62.90 - Malignant neoplasm of unspecified testis, unspecified whether descended or undescended (16) Hypogonadism: (17) Obstructive sleep apnea: CODE(S): G47.33 - Obstructive sleep apnea (adult) (pediatric) (18) Hepatic fibrosis: CODE(S): K74.00 - Hepatic fibrosis, unspecified (19) Diabetes mellitus type 2, insulin dependent: CODE(S): E11.9 - Type 2 diabetes mellitus without complications; Z79.4 - intermediate (current) use of insulin (20) Chronic kidney disease, stage 3b: CODE(S): N18.32 - Chronic kidney disease, stage 3b PLAN: Plan This is a 59-year-old diabetic male who originally presented with ulcerations in his lower extremities. The ulcerations were related to chronic dependency and chronic venous insufficiency. He also had symptoms consistent with postphlebitic syndrome with inflammation and ulceration. He has a history of pulmonary embolism in the past, for which an inferior vena cava filter was previously placed. The ulcerations and venous stasis dermatitis for which the patient originally presented were treated, and subsequently resolved with conservative measures after several weeks of conservative treatment. A lengthy discussion took place with the patient regarding the appropriate conservative means in the management of his chronic venous disease. Leg elevation was advised. The patient was instructed to elevate his lower extremities to heart level, or higher, as much as possible. Leg elevation was to be implemented during both daytime and nighttime hours. The patient was encouraged to sleep on a flat mattress at night. The patient was advised to refrain from prolonged, idle sitting and standing. Activity was encouraged. The benefit of implementing the calf muscle pumps had been explained. The patient obtained graduated compression stockings of 20 to 30 mmHg compression, which were to be donned bilaterally on a daily basis. In addition, the patient acquired pneumatic mechanical compression pumps, and he had been encouraged to use at least twice or 3 times daily. As of today's visit, the recently-developed right pretibial venous stasis ulceration appears to be healed, and the patient has been encouraged to resume the prior measures which had been implemented during his recent course of treatment. The patient is to be discharged, and will follow-up henceforth on an as-needed basis. He appears to understand the benefit of weight loss, and continues to lose weight, having lost an additional 12 pounds in recent weeks. Total time: 28 minutes
== END 2025-08-06 15:47 | disposition home or self-care (01) ==
LOC: WC 15:06
PROVIDERS: PCP Family Medicine Geriatric Medicine; Referring Provider Family Medicine Geriatric Medicine; Visit Provider Surgery
DX: Z09 Encounter for follow-up examination after completed treatment for conditions other than malignant neoplasm (principal); Z68.42 Body mass index [BMI] 45.0-49.9, adult; E66.01 Morbid (severe) obesity due to excess calories; E11.22 Type 2 diabetes mellitus with diabetic chronic kidney disease; Z79.4 Long term (current) use of insulin; E11.59 Type 2 diabetes mellitus with other circulatory complications; N18.32 Chronic kidney disease, stage 3b; I12.9 Hypertensive chronic kidney disease with stage 1 through stage 4 chronic kidney disease, or unspecified chronic kidney disease; R60.0 Localized edema; Z86.711 Personal history of pulmonary embolism; G47.33 Obstructive sleep apnea (adult) (pediatric); K22.70 Barrett's esophagus without dysplasia; Z87.891 Personal history of nicotine dependence; Z79.85 Long-term (current) use of injectable non-insulin antidiabetic drugs; I87.8 Other specified disorders of veins; E78.1 Pure hyperglyceridemia; K76.0 Fatty (change of) liver, not elsewhere classified; K74.00 Hepatic fibrosis, unspecified; D69.6 Thrombocytopenia, unspecified
CPT/HCPCS: 99213; G0463

== ENCOUNTER → 2025-07-24 | Outpatient (CLI) | payer BC, SELFPAY ==
[2025-07-24 16:42] LABS: Hematocrit 35.1 % (40-54); Hemoglobin 10.7 g/dL (13.0-16.5); Immature Granulocytes Count 0.040 X10^3/uL (0.0-0.0); Mean Corp Hgb Conc 30.5 g/dL (32-36); Mean Corpuscular Volume 81.3 fL (80-94); Mean Platelet Vol. 11.3 fl (6.2-12.0); NRBC Flagged by Analyzer 0 % (0-5); POSITIVE COUNT YES; Platelet Count 87 K/mm3 (150-450); RBC Distribution Width CV 14.5 % (11.6-14.6); RBC Distribution Width SD 42.5 fl (35.1-43.9); Red Blood Count 4.32 M/mm3 (4.6-6.2); White Blood Count 6.8 K/mm3 (4.4-11.0)
[2025-07-24 16:48] LABS: AST(SGOT) 34 U/L (<=37); Alanine Aminotransfer ALT/SGPT 26 U/L (<=46); Albumin, Serum 4.0 g/dL (3.5-5.0); Alkaline Phosphatase 95 U/L (40-129); Anion Gap 10 (5-15); BUN 23 mg/dL (4-19); BUN/Creat Ratio 19.8 RATIO (10-20); Calcium,Total 9.6 mg/dL (7.6-11.0); Carbon Dioxide 22.2 mmol/L (21.0-32.0); Chloride 106 mmol/L (98-108); Globulin 2.9 g/dL (2.2-4.2); Glucose 120 mg/dL (70-99); PSA,Total - Annual Screen 0.11 ng/mL (0.02-4.00); Potassium 4.9 mmol/L (3.3-5.1)
[2025-07-25 00:01] LABS: Xtra Tube Kwok EXTRA TUBE
== END | disposition home or self-care (01) ==
LOC: POLAB3 16:01
PROVIDERS: PCP Family Medicine Geriatric Medicine; Visit Provider Family Medicine Geriatric Medicine
DX: E11.22 Type 2 diabetes mellitus with diabetic chronic kidney disease (principal); I12.9 Hypertensive chronic kidney disease with stage 1 through stage 4 chronic kidney disease, or unspecified chronic kidney disease; N18.9 Chronic kidney disease, unspecified; Z12.5 Encounter for screening for malignant neoplasm of prostate
CPT/HCPCS: 36415; 80053; 84153; 84443; 85025; G0103

== ENCOUNTER → 2025-08-20 | Outpatient (CLI) | payer BC, SELFPAY | END | disposition home or self-care (01) | LOC: LABSPEC 10:08 | PROVIDERS: PCP Family Medicine Geriatric Medicine; Referring Provider Family Medicine Geriatric Medicine; Visit Provider Family Medicine Geriatric Medicine | DX: D64.9 Anemia, unspecified (principal) | CPT/HCPCS: 82274 ==

== ENCOUNTER → 2025-10-23 | Outpatient (CLI) | payer BC, SELFPAY ==
[2025-10-23 16:11] LABS: Hematocrit 36.6 % (40-54); Hemoglobin 11.2 g/dL (13.0-16.5); Immature Granulocytes Count 0.040 X10^3/uL (0.0-0.0); Mean Corp Hgb Conc 30.6 g/dL (32-36); Mean Corpuscular Volume 81.7 fL (80-94); Mean Platelet Vol. 11.3 fl (6.2-12.0); NRBC Flagged by Analyzer 0 % (0-5); POSITIVE COUNT YES; Platelet Count 79 K/mm3 (150-450); RBC Distribution Width CV 15.4 % (11.6-14.6); RBC Distribution Width SD 46.0 fl (35.1-43.9); Red Blood Count 4.48 M/mm3 (4.6-6.2); White Blood Count 5.5 K/mm3 (4.4-11.0)
[2025-10-23 16:34] LABS: AST(SGOT) 38 U/L (<=37); Alanine Aminotransfer ALT/SGPT 34 U/L (<=46); Albumin, Serum 4.0 g/dL (3.5-5.0); Alkaline Phosphatase 127 U/L (40-129); Anion Gap 9 (5-15); BUN 21 mg/dL (4-19); BUN/Creat Ratio 18.5 RATIO (10-20); Calcium,Total 10.2 mg/dL (7.6-11.0); Carbon Dioxide 26.8 mmol/L (21.0-32.0); Chloride 104 mmol/L (98-108); Globulin 3.2 g/dL (2.2-4.2); Glucose 217 mg/dL (70-99); Potassium 4.3 mmol/L (3.3-5.1)
[2025-10-24 00:01] LABS: Xtra Tube Kwok EXTRA TUBE
== END | disposition home or self-care (01) ==
LOC: POLAB3 16:01
PROVIDERS: PCP Family Medicine Geriatric Medicine; Visit Provider Family Medicine Geriatric Medicine
DX: I10 Essential (primary) hypertension (principal); E11.65 Type 2 diabetes mellitus with hyperglycemia
CPT/HCPCS: 36415; 80053; 82043; 85025